=== PATIENT | female | born 1940 | race Caucasian/White ===

== ENCOUNTER 2017-01-25 11:12 | Inpatient (IN) | payer MEDICARE, BC ==
[2017-01-25 11:57] LABS: Hematocrit 44.6 % (36.0-47.0); Mean Platelet Volume 6.5 fL (7.4-10.4); Red Blood Cell (RBC) Count 4.62 mill/uL (4.20-5.40); White Blood Cell (WBC) Count 20.1 thou/uL (4.8-10.8)
[2017-01-25 12:22] LABS: ALT (SGPT) 20 U/L (8-55); AST (SGOT) 34 U/L (5-34); Alkaline Phosphatase 68 U/L (40-150); Anion Gap 20 mmol/L (10-20); BUN (Urea Nitrogen) 17 mg/dL (9.8-20.1); Bilirubin, Total 1.2 mg/dL (0.2-1.2); Calc. Creatinine Clearance 0 mL/min (70-130); Calcium 10.7 mg/dL (7.8-10.44); Carbon Dioxide 25 mmol/L (23-31); Chloride 88 mmol/L (98-107); Estimated GFR-MDRD 56; Globulin 3.2 g/dL (2.4-3.5); Lipase 25 U/L (8-78); Protein, Total 7.2 g/dL (6.0-8.3)
[2017-01-25 12:29] LABS: Neutrophil 69 % (42-75); Reactive Lymphocytes 6 % (0-10)
[2017-01-25] MEDS ORDERED: Potassium Chloride 20 MEQ in Premix Bag 1 BAG IVPB SCH (12:45)
[2017-01-25] MEDS ORDERED: Ondansetron HCl/PF 4 MG/2 ML Vial ONE (12:57)
--- NOTE | 2017-01-25 13:20 | CT ---
CT ABDOMEN AND PELVIS NONCONTRAST: Comparison: 01-11-17 Indication: Pain. FINDINGS: There is volume loss at each lung base. No evidence of hydronephrosis. There is punctate calcificati on at the lower pole left kidney. Extensive colonic diverticulosis. There is moderate retained fecal material throughout the colon. Diffuse vascular disease is present. No ascites or free air. There a re multiple compression deformities, some of which demonstrate evidence of prior vertebroplasty. The se findings are grossly stable. Prior cholecystectomy. There is mild pericardial fluid. Granulomatou s calcification identified within the visualized lower chest and abdomen. IMPRESSION: 1. Punctate nonobstructing left nephrolithiasis. 2. Evaluation is otherwise limited on basis of noncontrast technique. POS: ARNAV
[2017-01-25 13:39] LABS: Troponin I 0.135 ng/mL (< 0.028)
[2017-01-25 14:42] LABS: Lactic Acid - Sepsis 2.9 mmol/L (0.5-2.2)
[2017-01-25] MEDS ORDERED: PIPERACILLIN IVPB SCH (14:45)
[2017-01-25] MEDS ORDERED: [UNRECOGNIZED DRUG - OTHER] IVPB SCH (14:45)
[2017-01-25] MEDS ORDERED: ADMIXTURE FEE IVPB SCH (14:45)
[2017-01-25] MEDS ORDERED: TAZOBACTAM IVPB SCH (14:45)
[2017-01-25 15:15] LABS: Glucose, Urine (Dipstick) Negative (Negative)
[2017-01-25 15:16] LABS: Bilirubin Small (Negative); Blood, Urine Negative (Negative); Ketone, Urine Trace mg/dL (Negative)
[2017-01-25 15:17] LABS: Nitrite Negative (Negative); Protein, Urine (Dipstick) Trace mg/dL (Neg-Trace)
[2017-01-25 15:57] LABS: Troponin I 0.124 ng/mL (< 0.028)
[2017-01-25] MEDS ORDERED: Morphine Sulfate 2 MG/ML SYRINGE SLOW IVP PRN (16:31)
[2017-01-25] MEDS ORDERED: Ondansetron HCl/PF 4 MG/2 ML Vial IVP PRN (16:31)
[2017-01-25] MEDS ORDERED: Ondansetron ODT 4 MG TAB PO PRN (16:31)
[2017-01-25] MEDS ORDERED: metroNIDAZOLE 500 MG in Premix Bag 1 BAG IVPB SCH (18:00)
[2017-01-25] MEDS: Sodium Chloride 0.9% 1,000 ML IV SCH (18:12)
[2017-01-25] MEDS: Vancomycin HCl 1 GM in Premix Bag 1 BAG IVPB SCH (18:12)
[2017-01-25] MEDS ORDERED: diphenhydrAMINE HCl 25 MG CAP PO PRN (19:07)
[2017-01-25] MEDS ORDERED: HYDROcodone/Acetaminophen 5/325 mg Tablet PO PRN (19:07)
[2017-01-25] MEDS ORDERED: Cyclobenzaprine 10 MG TAB PO PRN (19:07)
[2017-01-25] MEDS ORDERED: Cetirizine HCl 10 MG TAB PO PRN (19:07)
[2017-01-25] MEDS ORDERED: Fluticasone Propionate Nasal Spray 16 gm Bottle NASAL PRN (19:07)
--- NOTE | 2017-01-25 19:14 | RAD ---
CHEST TWO VIEWS: 01/25/17 HISTORY: Abdominal pain. Dyspnea. COMPARISON: 01/12/17 FINDINGS: The cardiac silhouette and pulmonary vasculature are unremarkable. Lungs remain hyperinflated. Media stinum is midline with aortic calcification. There is no confluent air space consolidation or eviden ce of free subdiaphragmatic gas. Prior vertebroplasty seen is similar in appearance to the previous exam. IMPRESSION: Chronic type findings are stable. No active cardiopulmonary abnormalities are demonstrated. POS: PROSPERH
[2017-01-25 20:06] LABS: Troponin I 0.107 ng/mL (< 0.028)
[2017-01-25] MEDS: metroNIDAZOLE 500 MG in Premix Bag 1 BAG IVPB SCH (20:56)
[2017-01-25] MEDS ORDERED: Vancomycin HCl 1 GM in Premix Bag 1 BAG IVPB SCH (21:00)
[2017-01-25] MEDS: Piperacillin/Tazobactam 3.375 GM in Sodium Chloride 0.9% 100 ML IVPB SCH (22:17)
[2017-01-26] MEDS: metroNIDAZOLE 500 MG in Premix Bag 1 BAG IVPB SCH ×4 (02:27→22:37)
[2017-01-26] MEDS: Sodium Chloride 0.9% 1,000 ML IV SCH ×3 (02:27→23:15)
[2017-01-26] MEDS: Piperacillin/Tazobactam 3.375 GM in Sodium Chloride 0.9% 100 ML IVPB SCH ×4 (03:28→23:15)
--- NOTE | 2017-01-26 03:36 | HP-2 ---
CODE STATUS: FULL. PRIMARY CARE PHYSICIAN: Dr. Tim. ATTENDING PHYSICIAN: Luis Belle MD RESIDENT: Becka Joyner DO HISTORIAN: Patient. SPECIALIST: Dr. Tello. CHIEF COMPLAINT: Abdominal pain. HISTORY OF PRESENT ILLNESS: This is a 76-year-old female. She was recently discharged on 01/12/2017 with concern for diverticulitis and NSTEMI presenting with abdominal pain that started about 3 days ago. The abdominal pain radiated across her epigastric area across her lower ribs to her back,to her ribs. It did not feel to her like her typical diverticulitis, but felt like pancreatitis which she has had 3 times in the past. After she woke up this morning, the pain has been constant since at that time until she came to the emergency room and received pain medications, also it was associated with nausea and weakness as well as a very poor appetite and vomiting , her vomitus that was nonbloody and just food. She states that she took over- the-counter medication. She was not sure that everything she took and states that the Pepto-Bismol seemed to help yesterday; however, did not help today. She was seen in Dr. Tello' office this morning and was told to come to the hospital for further evaluation during that time. She does also admit to decreased urine output as well as sweating and diaphoresis when she does get up and walk around. Denies any chest pain, shortness of breath or any fevers. In the emergency room, she was given potassium 40 mEq IV piggyback, one liter of normal saline, morphine 4 mg IV push, Zofran 4 mg IV push. She does admit to a dry cough. PAST MEDICAL HISTORY: 1. Paroxysmal atrial fibrillation. 2. Hypertension. 3. Osteoarthritis. 4. Hypothyroidism. 5. Hyperlipidemia. 6. Sjogren's syndrome. 7. Diastolic congestive heart failure 60% - 65% with the last EF was done on . 8. Non-ST elevation myocardial infarction. 9. TIA. PAST SURGICAL HISTORY: 1. Surgery of the right oophorectomy. 2. Ablation x2 for atrial fibrillation by Dr. Sawyer. 3. Appendectomy. 4. Cholecystectomy. 5. Thyroidectomy. 6. Surgery around T11 and L3-L4. 7. Filter to the heart, which is the Watchman filter. ALLERGIES: AMLODIPINE. MEDICATIONS: 1. Aspirin 81 mg every day. 2. Folic acid 0.6 mg every day. 3. Losartan 50 mg daily. 4. Advair 250/50 daily. 5. Propranolol 60 mg at bedtime. 6. Clarks Thyroid 60 mg every day. 7. Methylprednisolone 40 mg daily. 8. Albuterol q.4 hours. 9. Zyrtec 10 mg daily. 10. Clonidine 0.3 mg t.i.d. 11. Flonase. 12. Furosemide 40 mg p.o. daily p.r.n. lower extremity edema. 13. Ranitidine 150 mg daily p.r.n. 14. Rosuvastatin 10 mg p.o. at bedtime. 15. Hydralazine 50 mg t.i.d. FAMILY HISTORY: Son has hyperlipidemia and hypertension. SOCIAL HISTORY: She denies any smoking, alcohol or drug use. She is currently retired and has a son as well. REVIEW OF SYSTEMS: Negative except what was mentioned above in the HPI. All 10 systems reviewed and negative except in the HPI. PHYSICAL EXAMINATION: VITAL SIGNS: Blood pressure 120/55, pulse 79, respirations 18, T-max 100.1, pulse ox 96% on room air. Current weight is 68 kilograms. GENERAL: Alert, oriented x4, no acute distress. She is well-developed, well- nourished, and appropriately interactive. EYES: Pupils equal and reactive to light. Extraocular muscles intact. Conjunctivae within normal limits. ENT: Tympanic membranes pearly gomes without erythema or bulging. Nasal mucosa within normal limits. Oropharynx within normal limits. NECK: Supple, no lymphadenopathy, no thyromegaly. CARDIOVASCULAR: Regular rate and rhythm, no murmurs. Radial pulses +2 symmetric bilaterally, pedal pulses +2 symmetric bilaterally. RESPIRATIONS: Within normal limits. Clear to auscultation bilaterally. No retractions. SKIN: Warm and dry, no cyanosis shows multiple bruising over bilateral arms. ABDOMEN: Soft, mildly tenderness to palpation, generalized; however, no rebound , no guarding, no masses or distention. No CVA tenderness. EXTREMITIES: No edema. MUSCULOSKELETAL: She is very thin. She does have tenderness to palpation over the spinous processes where she previously had surgery in the thoracic and lumbar region. NEUROLOGIC: No focal deficits. GCS of 15. PSYCHIATRIC: Appropriate. LABORATORY DATA: CBC: WBC of 20.1, hemoglobin 14.7, hematocrit of 44.6, platelets 408,000. Sodium 130, potassium 2.6, chloride 88, bicarbonate 25, BUN of 17, creatinine 0.97, glucose 237, calcium 10.7, total bilirubin 1.2, albumin 4.0, total protein 7.2, AST 34, ALT 20, alkaline phosphatase 68, troponin I 0.135. Lipase 25, lactic acid 2.9. EKG does show a prolonged QT, nonspecific ST changes. Imaging of the abdomen and pelvis showed punctate nonobstructing nephrolithiasis. ASSESSMENT AND PLAN: This is a 76-year-old female with the medical history of diverticulitis that was recently treated and Sjogren's disease on chronic steroids, presenting with: 1. Fever of unknown source in immunocompromised individual. We will start broad spectrum antibiotics vancomycin, pharmacy to dose and Zosyn, metronidazole until blood cultures results negative. We have discussed this case with Dr. Tello and he will be consulted in the morning. UA culture and blood cultures are pending as well as we will resume fluids and continue Zofran p.r.n. nausea and morphine p.r.n. pain. We will allow her to eat clear liquid diet and admit her to inpatient telemetry there for other workup at this time. 2. Hx of Diverticulosis w/ concern for Diverticulitis. Continue antibiotics. Consult Dr. Tello. We will add C. diff as well to rule out if this is the cause. CT scan abdomen was without contrast which showed diverticulosis. Likely still has diverticulitis, as patient has lower abdominal pain and and initial leukocytosis 20. 3. Abdominal pain. CT scan as above. Will r/o cardiac cause. Continue serial cardiac enzymes. Abdominal pain is very nonspecific. No acute EKG findings. It does not appear that the punctate nonobstructing left nephrolithiasis are consistent with her abdominal pain. We will order the UA and follow up the results. Per Dr. Tello, the patient does have a possible history of IBS, which may be contributing to her abdominal pain. 4. Chronic Hypertension. Continue home blood pressure medications. 5. Chronic Hypothyroidism. Continue home medications and add a TSH. 6. Hyperlipidemia. Continue home medications. 7. Paroxysmal atrial fibrillation. Continue home medications. 8. Diastolic congestive heart failure (Last EF 60-65%). Continue home medications. We will add a chest x-ray. 9. Lactic acidosis. We will continue fluids and repeat lactic acid at 2100. 10. Low back pain, which is chronic. She has degenerative joint disease and osteoarthritis. We will continue home medications. 11. Hyponatremia. We will continue fluids, likely secondary to dehydration and monitor her results. 12. Hypokalemia has been replaced in emergency room. Likely secondary to vomiting, poor PO intake. We will recheck and also check her magnesium. 13. Indeterminate troponins, we will continue cardiac enzymes, monitor her in telemetry. She did have an EKG which does not show any ST elevation at this time. There are indeterminate troponin was not as high as it was on previous admission, which is likely residual. 14. Acute Kidney Injury. Will continue fluids. Likely all pre-reanl 14. DVT prophylaxis: Loveonx. 15. GI Prophylaxis. Pepcid. This history and physical exam, as well as management, was discussed with Dr. Belle, who agrees with the above assessment and plan. pt seen and evaluated in ED with housestaff. leukocytosis and diaphoresis most worrisome for recurrent infection doubt cardiac issue at this time. we will start empiric abx and do appropriate imaging. Dr Ramesh will follow as well. ANISA
[2017-01-26 06:39] LABS: #Basophils 0.1 thou/uL (0.0-0.2); #Eosinphils 0.1 thou/uL (0.0-0.7); #Lymphocytes 3.5 thou/uL (1.20-3.40); #Neutrophils 9.5 thou/uL (1.40-6.50); %Basophils 0.7 % (0.0-1.0); %Eosinophils 0.8 % (0.0-10.0); %Lymphocytes 24.4 % (21.0-51.0); %Monocytes 7.4 % (0.0-10.0); Hematocrit 34.8 % (36.0-47.0); White Blood Cell (WBC) Count 14.2 thou/uL (4.8-10.8)
[2017-01-26 06:46] LABS: Anion Gap 15 mmol/L (10-20); BUN (Urea Nitrogen) 11 mg/dL (9.8-20.1); Calc. Creatinine Clearance 66 mL/min (70-130); Calcium 8.7 mg/dL (7.8-10.44); Carbon Dioxide 22 mmol/L (23-31); Chloride 99 mmol/L (98-107); Estimated GFR-MDRD 78
[2017-01-26] MEDS ORDERED: Potassium Chloride 20 MEQ TAB PO SCH (07:00)
[2017-01-26] MEDS ORDERED: Potassium Chloride 40 MEQ in Premix Bag 1 BAG IVPB SCH (08:00)
[2017-01-26] MEDS ORDERED: SODIUM CHLORIDE IVPB SCH ×2 (08:00→16:00)
[2017-01-26] MEDS ORDERED: ADMIXTURE FEE IVPB SCH ×2 (08:00→16:00)
[2017-01-26] MEDS ORDERED: MAGNESIUM SULFATE IVPB SCH ×2 (08:00→16:00)
[2017-01-26] MEDS ORDERED: Potassium Chloride 40 MEQ, IV Admixture Fee 1 EACH in Sodium Chloride 0.9% 250 ML 250 ML IVPB SCH (08:15)
[2017-01-26] MEDS: Enoxaparin Sodium 40 MG/0.4 ML SYRINGE SC SCH (09:30)
[2017-01-26] MEDS: Prenatal Vitamin 1 TAB PO SCH (09:30)
--- NOTE | 2017-01-26 15:18 | PDOC.FM ---
- Subjective Subjective: 76 yo F hospital day 2 admitted for nausea, vommiting abdominal pain. She reports she is feeling better today and felt almost immediately better after receiving zofran in the ED. She was able to tolerate solid foods this morning, but states she felt a little "queezy" after eating. She denies any abdominal pain, diarrhea, constipation and vomiting. Denies fever and chills but states shes always cold. Denies CP and SOB. - Objective Vital Signs & Weight: Vital Signs (12 hours) Temp Pulse Pulse Resp BP BP BP 01/26/17 12:00 98.3 F 80 18 143/65 H 01/26/17 11:07 81 151/66 H 184/76 H 01/26/17 08:00 98.2 F 71 18 141/65 H 01/26/17 04:20 01/26/17 04:00 98.2 F 80 20 143/67 H Pulse Ox 01/26/17 12:00 01/26/17 11:07 01/26/17 08:00 95 01/26/17 04:20 94 L 01/26/17 04:00 97 Weight Admit Weight 61.689 kg Weight 64.093 kg I&O: 01/25/17 01/26/17 01/27/17 06:59 06:59 06:59 Intake Total 1920 Output Total 1000 Balance 920 Result Diagrams: 01/26/17 05:41 01/26/17 05:41 Phys Exam - Physical Examination Constitutional: NAD HEENT: PERRLA, moist MMs, sclera anicteric Neck: no JVD Respiratory: no wheezing, no rales, no rhonchi, clear to auscultation bilateral Cardiovascular: RRR, no significant murmur, no rub Gastrointestinal: soft, no distention, positive bowel sounds mildly ttp over LLQ Musculoskeletal: no edema, pulses present Neurological: non-focal, moves all 4 limbs Skin: no rash Dx/Plan (1) Afib Code(s): I48.91 - UNSPECIFIED ATRIAL FIBRILLATION Status: Acute Qualifiers: Atrial fibrillation type: paroxysmal Qualified Code(s): I48.0 - Paroxysmal atrial fibrillation (2) Diverticulitis large intestine w/o perforation or abscess w/o bleeding Code(s): K57.32 - DVTRCLI OF LG INT W/O PERFORATION OR ABSCESS W/O BLEEDING Status: Acute (3) Hyperlipidemia Code(s): E78.5 - HYPERLIPIDEMIA, UNSPECIFIED Status: Acute (4) Hypertension Code(s): I10 - ESSENTIAL (PRIMARY) HYPERTENSION Status: Acute Qualifiers: Hypertension type: essential hypertension Qualified Code(s): I10 - Essential (primary) hypertension (5) Hypokalemia Code(s): E87.6 - HYPOKALEMIA Status: Resolved (6) Hypomagnesemia Code(s): E83.42 - HYPOMAGNESEMIA Status: Resolved - Plan Plan: continue home medications for chronic medical conditions white count trending down, will continue broad spectrum Abx for suspected diverticulitis Non contrast CT abdomen negative, but recent h/o diverticulitis of sigmoid given this with physical exam findings will continue to treat for diverticulitis consult GI, appreciate recs replace K and Mag recheck BMP, pending
--- NOTE | 2017-01-26 15:22 | ADD-PRG ---
DATE OF SERVICE: 01/26/2017 ADDENDUM Please add it as an addendum to the note of Dr. Kj Harris. Ms. Carrera is a pleasant 76-year-ol d white female patient admitted from Dr. Tello' office for increased abdominal pain. On admission, she was noted to have a white count of 20,000 with hemoglobin of 14.7. This morning, her white cou nt has dropped to 14,200, hemoglobin 12. She is awake, alert, and in no distress. She even states that she is quite hungry. She denies any significant abdominal pain. Upon palpating the abdomen, i t is completely benign, soft, flat, although she does have left lower quadrant tenderness to deep pa lpation without rebound or rigidity. CT of the abdomen with contrast done on the previous admission 1 week ago did show acute diverticuli tis, now suspect that she is having lingering effects from this. She has been started on broad spec trum antibiotics, fluids and has stated it is ready looking and feeling much better. For now, given her advanced age, slow recovery, and use of steroids, we probably need to keep her on IV antibiotic s for several days and then transitioned her slowly to p.o. while increasing her and advancing her d iet.
[2017-01-26 15:43] LABS: Anion Gap 17 mmol/L (10-20); BUN (Urea Nitrogen) 11 mg/dL (9.8-20.1); Calc. Creatinine Clearance 61 mL/min (70-130); Calcium 9.4 mg/dL (7.8-10.44); Carbon Dioxide 22 mmol/L (23-31); Chloride 101 mmol/L (98-107); Estimated GFR-MDRD 70
[2017-01-26] MEDS: HYDROcodone/Acetaminophen 5/325 mg Tablet PO PRN (17:36)
[2017-01-26] MEDS ORDERED: Famotidine 20 MG TAB PO PRN (18:56)
[2017-01-26] MEDS ORDERED: Furosemide 40 MG TAB PO PRN (18:56)
[2017-01-26] MEDS ORDERED: Folic Acid 1 MG TAB PO PRN (18:56)
[2017-01-26] MEDS ORDERED: PROVENTIL INHALER 6.7 G (200 INHALATIONS) INH PRN (18:56)
[2017-01-26] MEDS ORDERED: SUMAtriptan Succinate 50 MG TAB PO PRN (19:20)
--- NOTE | 2017-01-26 21:49 | RAD ---
CHEST ONE VIEW: 01/26/17 HISTORY: Central line placement. COMPARISON: 01/25/17. FINDINGS: Cardiac silhouette and pulmonary vasculature are unremarkable. Mediastinum is midline. Tip of a righ t internal jugular central venous catheter projects over the superior vena cava. There is no evidenc e of pneumothorax. IMPRESSION: Right internal jugular central venous catheter is in good radiographic position. POS: [facility]
[2017-01-26] MEDS: Lorazepam 0.5 MG TAB PO PRN (21:56)
[2017-01-26] MEDS: Vancomycin HCl 1 GM in Premix Bag 1 BAG IVPB SCH (21:57)
[2017-01-26] MEDS: PROPRANOLOL HCL 60 MG PO SCH (23:15)
[2017-01-27] MEDS: metroNIDAZOLE 500 MG in Premix Bag 1 BAG IVPB SCH ×4 (01:57→22:48)
[2017-01-27] MEDS: Sodium Chloride 0.9% 1,000 ML IV SCH (03:40)
[2017-01-27] MEDS: Piperacillin/Tazobactam 3.375 GM in Sodium Chloride 0.9% 100 ML IVPB SCH ×5 (03:40→22:48)
[2017-01-27] MEDS: PROPRANOLOL HCL 60 MG PO SCH ×3 (05:40→21:18)
--- NOTE | 2017-01-27 06:09 | OP ---
DATE OF PROCEDURE: 01/26/2017 SURGEON: Dr. Torin Manning PROCTORING PHYSICIAN: Dr. Romano PROCEDURE: Central venous catheter placement. INDICATION: Need for multiple IV infusions, inability to maintain peripheral venous access, need for frequent blood draws. INDICATIONS: This is a 76-year-old female who was admitted with diverticulitis. She has had, it looks like several IVs and they are unable to obtain another one despite the need for recurrent blood draws, IV antibiotics, and because of this, we discussed the risks and the indications, alternatives, benefits of a central line including pain, bleeding, infection, damage to surrounding structures, need for additional procedures including a chest tube placement and she voiced consent and desired to proceed. PROCEDURE IN DETAIL: The patient was prepped and draped in the dorsal supine position in Trendelenburg. A full body drape, sterile gowns, mask, gloves and a cap were used. Under ultrasound guidance, the right internal jugular vein was identified and accessed and a central venous catheter placed using standard Seldinger technique. Placement was verified with ultrasound and chest x-ray afterwards with no immediate complication. The patient tolerated the procedure well. Anesthesia was lidocaine 5 mL with epinephrine 1%. MTDD
[2017-01-27 06:28] LABS: #Basophils 0.1 thou/uL (0.0-0.2); #Eosinphils 0.2 thou/uL (0.0-0.7); #Monocytes 0.8 thou/uL (0.11-0.59); #Neutrophils 4.2 thou/uL (1.40-6.50); %Basophils 0.9 % (0.0-1.0); %Eosinophils 2.7 % (0.0-10.0); %Lymphocytes 36.1 % (21.0-51.0); %Monocytes 9.5 % (0.0-10.0); Hematocrit 31.8 % (36.0-47.0); Red Blood Cell (RBC) Count 3.29 mill/uL (4.20-5.40); White Blood Cell (WBC) Count 8.3 thou/uL (4.8-10.8)
--- NOTE | 2017-01-27 06:36 | CON ---
DATE OF CONSULTATION: 01/26/2017 REASON FOR CONSULTATION: Questionable diverticulitis. HISTORY OF PRESENT ILLNESS: Ms. Carrera is a pleasant 76-year-old lady I have seen in the past for mu ltiple ailments, she definitely has a component of functional bowel disorder, she had some problems with reflux in the past. Last upper and lower endoscopy was in 2012, at which time she had some herminia yps and otherwise normal esophagogastroduodenoscopy. She apparently was in the hospital in 12/28/19 17 she was in and was diagnosed with noncomplicated diverticulitis based on some thickening in the s igmoid colon and was treated empirically with antibiotics. She had electrolyte replacement as she h ad quite a bit of electrolyte abnormality at that visit. She was discharged, then she represented o n the with weakness, nausea, and vomiting, again had to have electrolyte replacement, but no si gns of diverticulosis was found on CAT scan at that time. She was seeing a new primary care physici Dr. Glenroy bolivar of Internal Medicine and actually she had an appointment with me earlier this week. She called and said she was too ill to come, she was having nausea and vomiting and wanted to admit parveen to the hospital. I recommended she go to the emergency room. Ultimately, she came to the offic e the next day with complaints of epigastric pain, nausea, and poor intake as well as sweating and d iaphoresis. Her pain was mainly in the epigastric region. She thought she in fact probably had yost creatitis. She denied any pain in the lower abdominal region where she had diverticulitis previousl y. Other significant issues are a 50 pound weight loss since 05/2015 when we had last seen her in our o ffice. Here in the emergency room, she was found to have an elevated white count of 20,000, hemoglo bin 14, potassium of 2.6, sodium 133. Liver function tests were normal. Lipase was 25. She had a CAT scan of abdomen and pelvis which showed no signs of diverticulitis. She has been started empiri amira on broad spectrum antibiotics. PAST MEDICAL HISTORY: Paroxysmal atrial fibrillation, hypertension, osteoarthritis, hypothyroidism, Sjogren's syndrome, diastolic heart failure, non-ST elevation NH in the past, transient ischemic at tacks. She is on chronic steroids for the Sjogren's. PAST SURGICAL HISTORY: Surgery right oophorectomy, ablation of the atrial fibrillation x2, appendec kwesi, cholecystectomy, thyroidectomy, surgery for T11, L3, L4, Watchman filter. She has also had up per and lower endoscopies in 2013 as noted above. HOME MEDICATIONS: Aspirin, folic acid, losartan, Advair, propranolol, [place] Thyroid, methylprednis one 40 mg daily, albuterol, Zyrtec, clonidine, Flonase, furosemide, ranitidine, Rosuvastatin, hydral azine. FAMILY HISTORY: Hyperlipidemia, hypertension. SOCIAL HISTORY: She does not smoke, drink or use drugs. PRESENT MEDICATIONS: Proventil, Ecotrin, BuSpar, Zyrtec, Flexeril, Bentyl, Benadryl, Lovenox, Flona se, furosemide 40 mg p.r.n., hydrocodone p.r.n., magnesium sulfate IV, metronidazole 500 mg IV q.8 h ., Zosyn, propranolol, p.r.n. morphine, vancomycin, folic acid, ranitidine, clonidine, raul min, Synthroid. PHYSICAL EXAMINATION: GENERAL: The patient is resting in bed. She looks much better than she did in my office. VITAL SIGNS: Temperature 98, pulse 78, blood pressure 140/70. LUNGS: Clear. CARDIOVASCULAR: Heart regular, without clicks or murmurs. ABDOMEN: Soft, very mild tenderness in lower abdomen. No rebound, no guarding. There is no epigas tric tenderness. LABORATORY AND X-RAY FINDINGS: White count of 14.2, hemoglobin 12, platelet count 313. Sodium 136, potassium 3.8, BUN and creatinine are 11 and 0.8. Urinalysis was negative. Urine culture negative , 24 hour blood cultures negative to-date. ASSESSMENT: 1. Acute illness of unclear etiology. She has lost significant weight and had nausea and vomiting. It would be reasonable to consider an EGD tomorrow. 2. Chronic steroid use. The patient is probably adrenally suppressed, she is not on steroids now, she needs to be on her stress dose steroids. 3. No signs of diverticulitis at this point in time. 4. She has had 2-3 admissions now with nausea and vomiting, and electrolyte disturbances. One wond ers if this is related in some ways to some adrenal insufficiency. It may be reasonable to test her for adrenal insufficiency with Cortrosyn stimulation test. We will defer to Family Medicine. If a ll cultures are negative and she continues to have some improvement, we will plan on EGD probably i n the next 24-48 hours.
[2017-01-27 06:49] LABS: Anion Gap 10 mmol/L (10-20); BUN (Urea Nitrogen) 8 mg/dL (9.8-20.1); Calc. Creatinine Clearance 78 mL/min (70-130); Calcium 8.3 mg/dL (7.8-10.44); Carbon Dioxide 25 mmol/L (23-31); Chloride 102 mmol/L (98-107); Estimated GFR-MDRD Greater than 90; Magnesium 1.7 mg/dL (1.6-2.6)
[2017-01-27] MEDS: Aspirin 81 mg Enteric Coated Tablet PO SCH (08:15)
[2017-01-27] MEDS: busPIRone HCl 5 MG TAB PO SCH (08:15)
[2017-01-27] MEDS ORDERED: Potassium Chloride 40 MEQ in Sodium Chloride 0.9% 250 ML 250 ML IVPB SCH (08:15)
[2017-01-27] MEDS: Prenatal Vitamin 1 TAB PO SCH (08:16)
[2017-01-27] MEDS: methylPREDNISolone 4 mg Tablet PO SCH (08:16)
[2017-01-27] MEDS: Enoxaparin Sodium 40 MG/0.4 ML SYRINGE SC SCH ×2 (08:17→08:50)
--- NOTE | 2017-01-27 08:57 | PDOC.FM ---
- Subjective Subjective: 76 yo F hospital day 3. Per nursing staff, IV access was lost and pt was difficult to regain IV access. Decision was made to insert IJ central line. She states she feels the same as yesterday, but this is still improved from her original admission date. Denies fever chills. Denies Diarrhea, constipation, nausea vomiting. She is scheduled to have an EGD performed by Dr Tello later today. - Objective Vital Signs & Weight: Vital Signs (12 hours) Temp Pulse Resp BP BP Pulse Ox 01/27/17 08:16 67 157/67 H 01/27/17 08:15 157/67 H 01/27/17 08:00 98.6 F 67 18 157/67 H 94 L 01/27/17 04:00 97.6 F 72 18 150/66 H 95 Weight Admit Weight 61.689 kg Weight 64.637 kg I&O: 01/26/17 01/27/17 01/28/17 06:59 06:59 06:59 Intake Total 1920 2510 Output Total 1000 1050 Balance 920 1460 Result Diagrams: 01/27/17 05:57 01/27/17 05:57 Phys Exam - Physical Examination Constitutional: NAD HEENT: PERRLA, moist MMs rt IJ line in place Respiratory: no wheezing, no rales, no rhonchi, clear to auscultation bilateral Cardiovascular: RRR, no significant murmur, no rub Gastrointestinal: soft, no distention, positive bowel sounds mildly ttp diffuse worse LLQ, w/o rebound or rigidity. guarding Musculoskeletal: pulses present Neurological: non-focal Deviation from normal: senile purpura Dx/Plan (1) Afib Code(s): I48.91 - UNSPECIFIED ATRIAL FIBRILLATION Status: Acute Qualifiers: Atrial fibrillation type: paroxysmal Qualified Code(s): I48.0 - Paroxysmal atrial fibrillation (2) Diverticulitis large intestine w/o perforation or abscess w/o bleeding Code(s): K57.32 - DVTRCLI OF LG INT W/O PERFORATION OR ABSCESS W/O BLEEDING Status: Acute (3) Hyperlipidemia Code(s): E78.5 - HYPERLIPIDEMIA, UNSPECIFIED Status: Acute (4) Hypertension Code(s): I10 - ESSENTIAL (PRIMARY) HYPERTENSION Status: Acute Qualifiers: Hypertension type: essential hypertension Qualified Code(s): I10 - Essential (primary) hypertension (5) Hypokalemia Code(s): E87.6 - HYPOKALEMIA Status: Resolved (6) Hypomagnesemia Code(s): E83.42 - HYPOMAGNESEMIA Status: Resolved - Plan Plan: white count trended down continue abx for now persistently decreased serum potassium will check 24 urine potassium spot urine potassium and creatinine consider dagmar levels replace potassium as needed replace magnesium dc fluids hold lasix resume home meds for chronic conditions GI consulted, apppreciate recs EGD scheduled for today
[2017-01-27 11:15] LABS: Potassium, Urine 24.7 mmol/L
[2017-01-27] MEDS ORDERED: Potassium Chloride 40 MEQ in Sodium Chloride 0.9% 500 ML IVPB SCH (11:45)
[2017-01-27] MEDS ORDERED: Potassium Chloride 40 MEQ in Premix Bag 1 BAG IVPB SCH ×2 (13:20→17:30)
--- NOTE | 2017-01-27 14:09 | ADD-PRG ---
DATE OF SERVICE: 01/27/2017 This is an addendum to the note of Dr. Kj Harris. Ms. Carrera continues to feel improved, although still was some abdominal discomfort and nausea. She was seen in consultation by Dr. Tello and we appreciate his input. She is scheduled for an EGD lat er this morning given her persistent nausea. She continues on broad-spectrum antibiotics with a ten tative and likely diagnosis of acute diverticulitis. In the event, clinically she is improving, sue marion I would recommend prolonging her therapy for several days of intravenous antibiotics given luke t this a recurrent episode beginning probably 1-2 weeks ago.
[2017-01-27 16:50] LABS: Vancomycin, Trough 3.3 ug/mL
[2017-01-27] MEDS: Vancomycin HCl 1 GM in Premix Bag 1 BAG IVPB SCH (19:08)
[2017-01-27] MEDS ORDERED: Lidocaine 1% PF 5 ML VIAL ONE (19:17)
[2017-01-27] MEDS ORDERED: Ondansetron HCl/PF 4 MG/2 ML Vial IVP PRN (19:23)
[2017-01-27] MEDS ORDERED: Vancomycin HCl 1 GM in Premix Bag 1 BAG IVPB SCH (20:00)
[2017-01-27] MEDS: HYDROcodone/Acetaminophen 5/325 mg Tablet PO PRN (21:18)
[2017-01-28] MEDS: metroNIDAZOLE 500 MG in Premix Bag 1 BAG IVPB SCH ×5 (00:23→22:44)
[2017-01-28] MEDS: Piperacillin/Tazobactam 3.375 GM in Sodium Chloride 0.9% 100 ML IVPB SCH ×4 (04:05→22:11)
--- NOTE | 2017-01-28 05:01 | PDOC.FM ---
- Subjective Subjective: Pt had no acute events overnight. She continues to improve clinically and states she is feeling better today. She reports some nausea, but no vomiting. Denies cp, sob, diarrhea and constipation. She has some mild abdominal discomfort, but felt some relief with bowel movement. Her vitals remain stable and she continues to improve clinically. - Objective Vital Signs & Weight: Vital Signs (12 hours) Temp Pulse Resp BP Pulse Ox 01/27/17 19:45 97.6 F 71 16 136/66 98 Weight Admit Weight 61.689 kg Weight 64.637 kg I&O: 01/26/17 01/27/17 01/28/17 06:59 06:59 06:59 Intake Total 1920 2510 Output Total 1000 1050 Balance 920 1460 Result Diagrams: 01/28/17 05:45 01/28/17 05:31 <Kj Harris - Last Filed: 01/28/17 18:49> - Objective Vital Signs & Weight: Vital Signs (12 hours) Temp Pulse Pulse Pulse Resp BP BP 01/29/17 21:10 75 16 01/29/17 20:58 71 164/73 H 01/29/17 16:56 74 140/65 01/29/17 16:00 98.3 F 74 24 H 01/29/17 11:45 98 F 65 20 01/29/17 11:28 66 68 153/67 H BP BP Pulse Ox 01/29/17 21:10 99 01/29/17 20:58 01/29/17 16:56 01/29/17 16:00 140/65 98 01/29/17 11:45 141/67 H 01/29/17 11:28 141/62 H Weight Admit Weight 136 lb Weight 144 lb 3.2 oz I&O: 01/28/17 01/29/17 01/30/17 06:59 06:59 06:59 Intake Total 940 1775 850 Output Total 350 1200 1000 Balance 590 575 -150 Result Diagrams: 01/29/17 04:04 01/29/17 13:06 <Luis Belle - Last Filed: 01/29/17 21:52> Phys Exam - Physical Examination Constitutional: NAD HEENT: PERRLA, moist MMs Neck: no nodes Respiratory: no wheezing, no rales, no rhonchi, clear to auscultation bilateral Cardiovascular: RRR, no significant murmur, no rub Gastrointestinal: soft, no distention, positive bowel sounds ttp llq, w/o rebound, mild guarding Musculoskeletal: no edema Neurological: non-focal Deviation from normal: senile purpura <Kj Harris - Last Filed: 01/28/17 18:49> Dx/Plan (1) Afib Code(s): I48.91 - UNSPECIFIED ATRIAL FIBRILLATION Status: Acute Qualifiers: Atrial fibrillation type: paroxysmal Qualified Code(s): I48.0 - Paroxysmal atrial fibrillation (2) Diverticulitis large intestine w/o perforation or abscess w/o bleeding Code(s): K57.32 - DVTRCLI OF LG INT W/O PERFORATION OR ABSCESS W/O BLEEDING Status: Acute (3) Hyperlipidemia Code(s): E78.5 - HYPERLIPIDEMIA, UNSPECIFIED Status: Acute (4) Hypertension Code(s): I10 - ESSENTIAL (PRIMARY) HYPERTENSION Status: Acute Qualifiers: Hypertension type: essential hypertension Qualified Code(s): I10 - Essential (primary) hypertension (5) Hypokalemia Code(s): E87.6 - HYPOKALEMIA Status: Resolved (6) Hypomagnesemia Code(s): E83.42 - HYPOMAGNESEMIA Status: Resolved - Plan Plan: 24 hour urine potassium pending and awaiting results unclear if renal or GI loss pts symptoms consistent with hypokalemia vs infectious process w/ h/o of htn and severe hypokalemia w/ use of diuretics we will work pt up for hyperaldosteronism 24 Urine aldosterone pending we will continue IV abx for now given pts leukocytosis on initial presentation and previous h/o of diverticulitis pt has been afebrile since admission and white count has trended down we will continue home steroid dose since she is 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 dependent for hypokalemia and hypomagnesmia replace potassium and magnesium as appropriate recheck in AM pt received 120mEqs K+ yesterday, morning BMP and Mag clinically pt continues to improve, vitals are stable and white count continues to trend down we will DC vancomycin and continue to treat with zosyn and flagyl in hopes of transitioning to po medications soon <Kj Harris - Last Filed: 01/28/17 18:49> Attending Addendum - Attending Addendum I personally evaluated the patient and discussed the management with [Kimberly ] I agree with the History, Examination, Assessment and Plan documented above with any addition or exceptions noted below. pt stable and getting better. persistent issues with low k <Luis Belle - Last Filed: 01/29/17 21:52>
[2017-01-28 05:55] VITALS: BMI 29.1
[2017-01-28 06:06] LABS: #Basophils 0.1 thou/uL (0.0-0.2); #Eosinphils 0.2 thou/uL (0.0-0.7); #Lymphocytes 2.1 thou/uL (1.20-3.40); #Monocytes 0.5 thou/uL (0.11-0.59); #Neutrophils 2.8 thou/uL (1.40-6.50); %Basophils 1.2 % (0.0-1.0); %Lymphocytes 37.4 % (21.0-51.0); %Monocytes 8.8 % (0.0-10.0); Hematocrit 28.4 % (36.0-47.0); Mean Platelet Volume 7.1 fL (7.4-10.4); Red Blood Cell (RBC) Count 2.88 mill/uL (4.20-5.40); White Blood Cell (WBC) Count 5.7 thou/uL (4.8-10.8)
[2017-01-28 06:37] LABS: Anion Gap 11 mmol/L (10-20); BUN (Urea Nitrogen) 6 mg/dL (9.8-20.1); Calc. Creatinine Clearance 87 mL/min (70-130); Calcium 7.9 mg/dL (7.8-10.44); Carbon Dioxide 24 mmol/L (23-31); Chloride 103 mmol/L (98-107); Estimated GFR-MDRD Greater than 90; Magnesium 1.3 mg/dL (1.6-2.6)
--- NOTE | 2017-01-28 06:50 | OP ---
PREOPERATIVE DIAGNOSES: 1. Epigastric pain. 2. Admitted with fever, leukocytosis of unclear etiology. POSTOPERATIVE DIAGNOSES: 1. Mild coffee ground like heme staining of the mucosa, but no overt ulcerations or erosions. 2. Mild atrophic gastritis. Previous biopsies in the past have been negative. This was not rebiop sied today. 3. Hiatal hernia. 4. Normal duodenum. RECOMMENDATIONS: Advance diet as tolerated. ANESTHESIA: TIVA. PROCEDURE IN DETAIL: After the patient was informed of the risks, benefits, possible complications of endoscopy including perforation, bleeding, reactions to medication and aspiration, informed conse nt was obtained. The patient was brought to the endoscopy suite where she was sedated in gradual fa shion. Once she was comfortable, a bite block was placed in incisural orifice. The endoscope was a dvanced through the esophagus, stomach and second and third portion of duodenum and slowly removed. There was a good visualization of mucosa. There were no masses, lesions, or arteriovenous malforma tions identified. There is a hiatal hernia. The esophagus was otherwise normal. There was no evid ence of esophagitis. The duodenum was normal in the bulb, second and third portions. The stomach w as notable for mild atrophic gastritis. Retroflexed views were normal. The scope was removed. The patient tolerated the procedure and no complications. RECOMMENDATIONS: With hypokalemia and hyponatremia, history of chronic steroid use, will check maxwell isol stimulation.
[2017-01-28] MEDS ORDERED: Potassium Chloride 40 MEQ in Sodium Chloride 0.9% 500 ML IVPB SCH ×2 (07:00→07:15)
[2017-01-28] MEDS ORDERED: Magnesium Sulfate 3 GM in Sodium Chloride 0.9% 100 ML IVPB SCH (07:00)
[2017-01-28] MEDS: Enoxaparin Sodium 40 MG/0.4 ML SYRINGE SC SCH (08:35)
[2017-01-28] MEDS: Aspirin 81 mg Enteric Coated Tablet PO SCH (08:36)
[2017-01-28] MEDS: methylPREDNISolone 4 mg Tablet PO SCH (08:36)
[2017-01-28] MEDS: Prenatal Vitamin 1 TAB PO SCH (08:36)
[2017-01-28] MEDS: PROPRANOLOL HCL 60 MG PO SCH ×3 (08:37→21:57)
[2017-01-28] MEDS: busPIRone HCl 5 MG TAB PO SCH (08:37)
[2017-01-28] MEDS ORDERED: Potassium Chloride 40 MEQ in Premix Bag 1 BAG IVPB SCH ×2 (11:15→18:00)
[2017-01-28] MEDS ORDERED: Potassium Chloride 40 MEQ, IV Admixture Fee 1 EACH in Sodium Chloride 0.9% 250 ML 250 ML IVPB SCH (11:30)
[2017-01-28] MEDS ORDERED: Multivitamins, Adult 10 ML, Folic Acid 1 MG, Thiamine HCl 100 MG in Dextrose 5 %-0.45 %... IV SCH ×4 (12:45)
--- NOTE | 2017-01-28 14:21 | PRG ---
DATE OF SERVICE: 01/28/2017 SUBJECTIVE: Ms. Carrera feels better. She had a good bowel movement today. She has been tolerating a diet. She has no abdominal pain. OBJECTIVE: VITAL SIGNS: Temperature is 98, pulse 67, blood pressure 154/71. LUNGS: Clear. ABDOMEN: Soft and nontender. Bowel sounds positive. LABORATORY STUDIES: White count is 5.7, hemoglobin is 9.6, platelet count 182. Sodium 135, potassi um 3.2, BUN and creatinine are 6 and 0.57. Cortisol less than 1. ASSESSMENT: 1. Recurrent admissions with vague abdominal discomfort, leukocytosis, no fever with negative cultu res. In mid December, she had CAT scan changes of diverticulitis. In late December, she had no changes of diverticulitis. Now, she has no changes of diverticulitis. 2. With her abdominal pain, EGD was performed and was normal. 3. I suspect she has adrenal insufficiency as cortisol is less than 1. This may be adrenal crises that she is coming in with admission with hypotension, leukocytosis, abdominal pain, hypokalemia, hy ponatremia. I see no signs of diverticular disease at this time. We will follow from a distance. I think getting on a good steroid regimen for adrenal insufficiency is going to be important. She h as been on chronic steroids for many years. It is unclear which she has been taking at home recentl y. She states that she was on methylprednisolone 4 mg a day at home, but probably is not enough whe n she gets sick. At this point in time, there are no signs of diverticular disease. We will follow from a distance.
[2017-01-28 19:40] LABS: Anion Gap 16 mmol/L (10-20); BUN (Urea Nitrogen) 7 mg/dL (9.8-20.1); Calc. Creatinine Clearance 68 mL/min (70-130); Calcium 8.4 mg/dL (7.8-10.44); Carbon Dioxide 19 mmol/L (23-31); Chloride 103 mmol/L (98-107); Estimated GFR-MDRD 78
[2017-01-28] MEDS ORDERED: Pantoprazole 40 MG VIAL IVP SCH (21:00)
[2017-01-28] MEDS: Lorazepam 0.5 MG TAB PO PRN (22:11)
[2017-01-28] MEDS: HYDROcodone/Acetaminophen 5/325 mg Tablet PO PRN (22:47)
[2017-01-29] MEDS: Piperacillin/Tazobactam 3.375 GM in Sodium Chloride 0.9% 100 ML IVPB SCH ×4 (04:09→22:32)
[2017-01-29 04:21] LABS: #Eosinphils 0.2 thou/uL (0.0-0.7); #Lymphocytes 2.3 thou/uL (1.20-3.40); #Monocytes 0.5 thou/uL (0.11-0.59); #Neutrophils 3.3 thou/uL (1.40-6.50); %Basophils 0.3 % (0.0-1.0); %Lymphocytes 36.9 % (21.0-51.0); %Monocytes 7.5 % (0.0-10.0); Hematocrit 28.3 % (36.0-47.0); Mean Platelet Volume 6.7 fL (7.4-10.4); Red Blood Cell (RBC) Count 2.87 mill/uL (4.20-5.40); White Blood Cell (WBC) Count 6.3 thou/uL (4.8-10.8)
[2017-01-29 04:43] LABS: Anion Gap 11 mmol/L (10-20); BUN (Urea Nitrogen) 6 mg/dL (9.8-20.1); Calc. Creatinine Clearance 75 mL/min (70-130); Carbon Dioxide 24 mmol/L (23-31); Chloride 103 mmol/L (98-107); Estimated GFR-MDRD 87; Magnesium 1.5 mg/dL (1.6-2.6)
[2017-01-29] MEDS: metroNIDAZOLE 500 MG in Premix Bag 1 BAG IVPB SCH ×4 (04:54→22:42)
--- NOTE | 2017-01-29 06:00 | PDOC.FM ---
- Subjective Subjective: pt reports she is feeling a little better today but still becomes a little nauseated after meals. She states she had one episode of loose stool yesterday. still endorses llq pain. no acute events overnight and remains in sinus rhythm on the monitor. - Objective Vital Signs & Weight: Vital Signs (12 hours) Temp Pulse Resp BP BP 01/29/17 03:27 97.1 F L 71 20 133/60 01/28/17 21:57 77 136/60 01/28/17 20:00 99.0 F 77 20 133/60 Weight Admit Weight 61.689 kg Weight 65.408 kg I&O: 01/27/17 01/28/17 01/29/17 06:59 06:59 06:59 Intake Total 2510 940 1775 Output Total 2115 462 3257 Balance 1460 590 575 Result Diagrams: 01/29/17 04:04 01/29/17 04:04 <Kj Harris - Last Filed: 01/29/17 07:57> - Objective Vital Signs & Weight: Vital Signs (12 hours) Temp Pulse Resp BP BP Pulse Ox 01/29/17 09:03 68 155/68 H 01/29/17 07:02 96.9 F L 68 18 155/68 H 96 01/29/17 03:27 97.1 F L 71 20 133/60 Weight Admit Weight 136 lb Weight 144 lb 3.2 oz I&O: 01/28/17 01/29/17 01/30/17 06:59 06:59 06:59 Intake Total 940 1775 Output Total 350 1200 Balance 590 575 Result Diagrams: 01/29/17 04:04 01/29/17 04:04 <Gamaliel Daly - Last Filed: 01/29/17 11:26> Phys Exam - Physical Examination Constitutional: NAD HEENT: PERRLA, moist MMs Neck: no nodes Respiratory: no wheezing, no rales, no rhonchi, clear to auscultation bilateral Cardiovascular: RRR, no significant murmur, no rub Gastrointestinal: soft, no distention, positive bowel sounds llq ttp Musculoskeletal: no edema, pulses present Neurological: non-focal, moves all 4 limbs Deviation from normal: senile purpura <Kj Harris - Last Filed: 01/29/17 07:57> Dx/Plan (1) Afib Code(s): I48.91 - UNSPECIFIED ATRIAL FIBRILLATION Status: Acute Qualifiers: Atrial fibrillation type: paroxysmal Qualified Code(s): I48.0 - Paroxysmal atrial fibrillation (2) Diverticulitis large intestine w/o perforation or abscess w/o bleeding Code(s): K57.32 - DVTRCLI OF LG INT W/O PERFORATION OR ABSCESS W/O BLEEDING Status: Acute (3) Hyperlipidemia Code(s): E78.5 - HYPERLIPIDEMIA, UNSPECIFIED Status: Acute (4) Hypertension Code(s): I10 - ESSENTIAL (PRIMARY) HYPERTENSION Status: Acute Qualifiers: Hypertension type: essential hypertension Qualified Code(s): I10 - Essential (primary) hypertension (5) Hypokalemia Code(s): E87.6 - HYPOKALEMIA Status: Resolved (6) Hypomagnesemia Code(s): E83.42 - HYPOMAGNESEMIA Status: Resolved - Plan Plan: 24 hour urine potassium and aldosterone pending and awaiting results very likely adrenally insufficient 2/2 chronic steroid use and cortisol <1, but given persistent hypokalemia concern for aldosterone dysregulation remains will likely need op f/u pts symptoms consistent with hypokalemia vs infectious process w/ h/o of htn and severe hypokalemia w/ use of diuretics we will work pt up for hyperaldosteronism we will continue IV abx for now given pts leukocytosis on initial presentation and previous h/o of diverticulitis pt has been afebrile since admission and white count has trended down we will continue home steroid dose since she is 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 dependent for hypokalemia and hypomagnesmia replace potassium and magnesium as appropriate recheck in AM replace elytes as appropriate clinically pt continues to improve, vitals are stable and white count continues to trend down we will DC vancomycin and continue to treat with zosyn and flagyl in hopes of transitioning to po medications soon <Kj Harris - Last Filed: 01/29/17 07:57> Attending Addendum - Attending Addendum I personally evaluated the patient and discussed the management with resident[] I agree with the History, Examination, Assessment and Plan documented above. <Gamaliel Daly - Last Filed: 01/29/17 11:26>
[2017-01-29 06:41] LABS: Potassium, Urine 45.3 mmol/L
[2017-01-29] MEDS ORDERED: Magnesium Sulfate 3 GM in Sodium Chloride 0.9% 100 ML IVPB SCH (08:00)
[2017-01-29] MEDS ORDERED: Potassium Chloride 20 MEQ TAB PO SCH (08:00)
[2017-01-29] MEDS: Enoxaparin Sodium 40 MG/0.4 ML SYRINGE SC SCH (09:02)
[2017-01-29] MEDS: Prenatal Vitamin 1 TAB PO SCH (09:03)
[2017-01-29] MEDS: Aspirin 81 mg Enteric Coated Tablet PO SCH (09:03)
[2017-01-29] MEDS: methylPREDNISolone 4 mg Tablet PO SCH (09:03)
[2017-01-29] MEDS: PROPRANOLOL HCL 60 MG PO SCH ×3 (09:04→20:59)
[2017-01-29] MEDS: busPIRone HCl 5 MG TAB PO SCH (09:04)
[2017-01-29] MEDS ORDERED: methylPREDNISolone Sod Succ/PF 125 MG/2 ML VIAL IVP SCH (10:45)
[2017-01-29] MEDS ORDERED: GoLYTELY 4,000 ml Bottle PO SCH (18:00)
[2017-01-29] MEDS: HYDROcodone/Acetaminophen 5/325 mg Tablet PO PRN (18:10)
--- NOTE | 2017-01-29 20:29 | PRG ---
DATE OF SERVICE: 01/29/2017 SUBJECTIVE: Ms. Carrera is doing well and eating and has some vague lower abdominal discomfort in the left. She has no nausea or vomiting. MEDICATIONS: BuSpar, Zyrtec, Flexeril, Bentyl, Lovenox, vitamin D, Pepcid, Apresoline, lorazepam, m ethylprednisolone 4 mg daily, 80 q.12 h., morphine, Zofran, Protonix, Zosyn, p.r.n. Imitrex, m ultivitamin, Inderal, and Synthroid. OBJECTIVE: VITAL SIGNS: Temperature 96, blood pressure 155/68, respirations 18, and pulse 68. LUNGS: Clear. ABDOMEN: Soft. LABORATORY DATA: White count 6.3, hemoglobin 9.4, platelet count 176. Sodium 135, potassium 3.2, B UN and creatinine are 6 and 0.66. ASSESSMENT: 1. Adrenal insufficiency, it is unclear how this relates to admission, but she had been in a couple of times. She comes in with borderline blood pressure and is very dehydrated with multiple electro lyte abnormalities including hypokalemia and hyponatremia and gets better very quickly with IV fluid s. She states she had not run out of her steroids or stopped taking them. She presumptively is on these for her Sjogren's. 2. Admission last month for diverticulitis. Followup CAT scan on that exam showed no diverticuliti s. There is very minimal tenderness. She had leukocytosis on admission, this has resolved quickly. She is empirically being treated for this again. 3. Epigastric pain on admission as well. This has resolved quickly and she had no esophagogastrodu odenoscopy. RECOMMENDATIONS: 1. I discussed with the Family Medicine residents. I think we can switch to p.o. antibiotics for d iverticulitis, presumptive treatment and offered the patient a colonoscopy to evaluate her colon to see if there are changes or chronic inflammation there as she has not had one in many years, but the re are no objective findings of diverticulitis at this time. 2. At this point in time, she may not need the stress dose steroids any longer but she will need to be maintained on her baseline steroids at discharge and then given instructions on stress dose ster oids for any viral illness or other acute physical stressors.
[2017-01-29] MEDS ORDERED: PROVENTIL INHALER 6.7 G (200 INHALATIONS) INH PRN (20:56)
[2017-01-30] MEDS: Piperacillin/Tazobactam 3.375 GM in Sodium Chloride 0.9% 100 ML IVPB SCH (04:25)
[2017-01-30] MEDS: HYDROcodone/Acetaminophen 5/325 mg Tablet PO PRN ×2 (05:37→13:54)
[2017-01-30 06:13] LABS: #Lymphocytes 1.8 thou/uL (1.20-3.40); #Monocytes 0.4 thou/uL (0.11-0.59); #Neutrophils 5.5 thou/uL (1.40-6.50); %Basophils 0.3 % (0.0-1.0); %Eosinophils 0.4 % (0.0-10.0); %Lymphocytes 23.1 % (21.0-51.0); Hematocrit 29.8 % (36.0-47.0); Red Blood Cell (RBC) Count 3.04 mill/uL (4.20-5.40); White Blood Cell (WBC) Count 7.7 thou/uL (4.8-10.8)
[2017-01-30 06:50] LABS: Anion Gap 15 mmol/L (10-20); BUN (Urea Nitrogen) Less than 4 mg/dL (9.8-20.1); Calc. Creatinine Clearance 84 mL/min (70-130); Calcium 8.2 mg/dL (7.8-10.44); Carbon Dioxide 25 mmol/L (23-31); Chloride 101 mmol/L (98-107); Estimated GFR-MDRD Greater than 90
[2017-01-30] MEDS ORDERED: Potassium Chloride 40 MEQ in Premix Bag 1 BAG IVPB SCH (07:00)
[2017-01-30] MEDS ORDERED: Potassium Chloride 40 MEQ in Sodium Chloride 0.9% 500 ML IVPB SCH (07:15)
[2017-01-30] MEDS ORDERED: Propofol 200 MG/20 ML VIAL ONE (08:47)
--- NOTE | 2017-01-30 08:54 | PDOC.FM ---
- Subjective Subjective: states she is feeling better today. No acute events overnight potassium remains low. Will replace. - Objective Vital Signs & Weight: Vital Signs (12 hours) Temp Pulse Resp BP BP Pulse Ox 01/30/17 07:05 97.6 F 81 18 178/72 H 96 01/30/17 04:00 76 20 172/78 H 01/30/17 00:54 99 01/29/17 21:10 75 16 99 01/29/17 20:58 71 164/73 H Weight Admit Weight 61.689 kg Weight 65.408 kg I&O: 01/29/17 01/30/17 01/31/17 06:59 06:59 06:59 Intake Total 1775 850 Output Total 1200 1000 Balance 575 -150 Result Diagrams: 01/30/17 05:36 01/30/17 05:36 <Kj Harris - Last Filed: 01/30/17 12:20> - Objective Vital Signs & Weight: Vital Signs (12 hours) Temp Pulse Resp BP BP Pulse Ox 01/30/17 10:00 81 178/72 H 01/30/17 09:59 178/72 H 01/30/17 07:05 97.6 F 81 18 178/72 H 96 01/30/17 04:00 76 20 172/78 H 01/30/17 00:54 99 Weight Admit Weight 61.689 kg Weight 65.408 kg I&O: 01/29/17 01/30/17 01/31/17 06:59 06:59 06:59 Intake Total 1775 850 Output Total 1200 1000 Balance 575 -150 Result Diagrams: 01/30/17 05:36 01/30/17 05:36 <Wilberto Romano - Last Filed: 01/30/17 13:06> Phys Exam - Physical Examination Constitutional: NAD HEENT: sclera anicteric Respiratory: no wheezing, no rales, no rhonchi, clear to auscultation bilateral Cardiovascular: RRR, no significant murmur, no rub Gastrointestinal: soft, non-tender, no distention, positive bowel sounds 2+ pitting edema, bl le Neurological: non-focal, moves all 4 limbs Deviation from normal: senile purpura <Kj Harris - Last Filed: 01/30/17 12:20> Dx/Plan (1) Afib Code(s): I48.91 - UNSPECIFIED ATRIAL FIBRILLATION Status: Acute Qualifiers: Atrial fibrillation type: paroxysmal Qualified Code(s): I48.0 - Paroxysmal atrial fibrillation (2) Diverticulitis large intestine w/o perforation or abscess w/o bleeding Code(s): K57.32 - DVTRCLI OF LG INT W/O PERFORATION OR ABSCESS W/O BLEEDING Status: Acute (3) Hyperlipidemia Code(s): E78.5 - HYPERLIPIDEMIA, UNSPECIFIED Status: Acute (4) Hypertension Code(s): I10 - ESSENTIAL (PRIMARY) HYPERTENSION Status: Acute Qualifiers: Hypertension type: essential hypertension Qualified Code(s): I10 - Essential (primary) hypertension (5) Hypokalemia Code(s): E87.6 - HYPOKALEMIA Status: Resolved (6) Hypomagnesemia Code(s): E83.42 - HYPOMAGNESEMIA Status: Resolved - Plan Plan: 24 hour urine potassium 88 suggestive of renal loss, but possible scewed result 2/2 ARB use 24 hr aldosterone pending and awaiting results very likely adrenally insufficient 2/2 chronic steroid use and cortisol <1, but given persistent hypokalemia concern for aldosterone dysregulation remains will likely need op f/u pts symptoms consistent with hypokalemia vs infectious process w/ h/o of htn and severe hypokalemia w/ use of diuretics we will work pt up for hyperaldosteronism we will continue IV abx for now given pts leukocytosis on initial presentation and previous h/o of diverticulitis pt has been afebrile since admission and white count has trended down we will continue home steroid dose since she is 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 dependent for hypokalemia and hypomagnesmia replace potassium and magnesium as appropriate recheck in AM replace elytes as appropriate clinically pt continues to improve, vitals are stable and white count continues to trend down we will DC vancomycin and continue to treat with zosyn and flagyl in hopes of transitioning to po medications soon treatment course of 5 days of zosyn and flagyl for presumed diverticulitis will dc meds today colonoscopy today to r/o or confirm diverticulitis looking through patients recent admissions she comes in every time with hypokalemia, but it it is unclear if this is a secondary finding from other illness or the primary reason for her symptoms. Given vague abdominal symptoms and n/v with weakness hypokalemia could very likely be the cause for her symptoms. steroids were given yesterday for concern of adrenal insufficiency, but her potassium continues to be low case management to see pt for placement colonoscopy showed no evidence of diverticulitis, dc abx Likely DC today or tomorrow pending placement repeat bmp this afternoon <Kj Harris - Last Filed: 01/30/17 12:20> Attending Addendum - Attending Addendum I personally evaluated the patient and discussed the management with . [Kimberly ] I agree with the History, Examination, Assessment and Plan documented above with any addition or exceptions noted below. Pt. improved symptomatically, but developed 2+ edema with fluids. Colonoscopy negative for diverticulitis. Hypokalemia, hypomagnesemia likely due to decreased intake since acutely ill, will replace and use potassium sparing diuretic, oral Mag replacement and continue to monitor as OP. OK to return to [facility]. <Wilberto Romano - Last Filed: 01/30/17 13:06>
[2017-01-30] MEDS ORDERED: Promethazine HCl 25 MG/ML VIAL IM PRN (09:30)
[2017-01-30] MEDS ORDERED: Ondansetron HCl/PF 4 MG/2 ML Vial IVP PRN (09:30)
[2017-01-30] MEDS ORDERED: Promethazine HCl 25 MG/ML VIAL SLOW IVP PRN (09:30)
[2017-01-30] MEDS: Enoxaparin Sodium 40 MG/0.4 ML SYRINGE SC SCH (09:59)
[2017-01-30] MEDS: Aspirin 81 mg Enteric Coated Tablet PO SCH (09:59)
[2017-01-30] MEDS: methylPREDNISolone 4 mg Tablet PO SCH (09:59)
[2017-01-30] MEDS: Prenatal Vitamin 1 TAB PO SCH (09:59)
[2017-01-30] MEDS: Saccharomyces boulardii 250 MG CAP PO SCH (10:00)
[2017-01-30] MEDS: busPIRone HCl 5 MG TAB PO SCH (10:00)
[2017-01-30] MEDS: PROPRANOLOL HCL 60 MG PO SCH ×3 (10:10→21:03)
--- NOTE | 2017-01-30 10:46 | OP ---
DATE OF PROCEDURE: 01/30/2017 SURGEON: Abiodun Tello M.D. PROCEDURE: Colonoscopy. PREOPERATIVE DIAGNOSES: 1. Diverticulosis, diverticulitis 1 month ago. 2. Recurrent admissions with leukocytosis and vague abdominal discomfort. 3. Personal history of colon polyps. POSTOPERATIVE DIAGNOSES: 1. Six colon polyps 2-5 mm in the ascending colon removed by snare polypectomy and sent to patholog y. 2. Rectal polyp, sessile, 4 mm, removed by snare polypectomy and submitted to Pathology. 3. Diverticulosis coli in the sigmoid and descending colon without any evidence of acute or chronic diverticulitis. 4. Otherwise, normal colonoscopy. RECOMMENDATIONS: Fiber rich diet. ANESTHESIA: TIVA. PROCEDURE IN DETAIL: After the patient was informed of the risks, benefits, possible complications of endoscopy including perforation, bleeding, reactions to medication and aspiration, informed conse nt was obtained. The patient brought to endoscopy suite. The main point of the procedure was to evaluate for possible ongoing inflammation sigmoid colon as s he has had 2 subsequent admissions after the diverticulitis in mid December with vague abdominal pain and leukocytosis. CAT scans have been negative. The endoscope was advanced through anal canal through the colon to cecum that was identified by ileo cecal valve and appendiceal orifice. There was diverticulosis in the descending and sigmoid colon w ithout any evidence of acute or chronic diverticulitis. There were 6 small polyps located in the as cending colon, hepatic flexure region, all sessile between 3 and 6 mm in size. These were removed by snare polypectomy and submitted to Pathology. There was 1 polyp in the rectum that was removed b y snare polypectomy and submitted to Pathology as well. The scope was removed. The patient tolerat ed the procedure well with no complications.
[2017-01-30] MEDS ORDERED: Magnesium 2 GM/NS 0.9% 100 ML 2 GM in Premix Bag 1 BAG IVPB SCH (12:30)
[2017-01-30] MEDS ORDERED: Spironolactone 25 MG TAB PO SCH (14:45)
[2017-01-30] MEDS ORDERED: Potassium Chloride 20 MEQ TAB PO SCH (19:00)
[2017-01-31] MEDS ORDERED: Spironolactone 25 MG TAB PO SCH ×2 (06:30→17:00)
--- NOTE | 2017-01-31 06:43 | PDOC.FM ---
- Subjective Subjective: Pt reports some wheezing and increased lower extremity edema since yesterday. She otherwise reports resolution of other s/s. - Objective Vital Signs & Weight: Vital Signs (12 hours) Temp Pulse Resp BP BP BP Pulse Ox 01/31/17 04:00 97.9 F 68 18 157/68 H 01/31/17 03:09 65 20 98 01/30/17 21:03 69 135/63 01/30/17 21:02 134/63 01/30/17 20:00 97.5 F L 69 20 01/30/17 19:28 97.5 F L 69 20 135/63 Weight Admit Weight 61.689 kg Weight 65.408 kg I&O: 01/29/17 01/30/17 01/31/17 06:59 06:59 06:59 Intake Total 1775 850 235 Output Total 1200 1000 600 Balance 575 -150 -365 Result Diagrams: 01/30/17 05:36 01/31/17 05:43 <Kj Harris - Last Filed: 01/31/17 09:11> - Objective Vital Signs & Weight: Vital Signs (12 hours) Temp Pulse Resp BP BP BP Pulse Ox 01/31/17 09:04 175/74 H 01/31/17 09:03 70 175/74 H 01/31/17 07:20 97.2 F L 70 18 175/74 H 93 L 01/31/17 04:00 97.9 F 68 18 157/68 H 01/31/17 03:09 65 20 98 Weight Admit Weight 61.689 kg Weight 65.408 kg I&O: 01/30/17 01/31/17 02/01/17 06:59 06:59 06:59 Intake Total 850 235 Output Total 1000 600 Balance -150 -365 Result Diagrams: 01/30/17 05:36 01/31/17 05:43 <Wilberto Romano - Last Filed: 01/31/17 11:53> Phys Exam - Physical Examination Constitutional: NAD HEENT: PERRLA, sclera anicteric Neck: no nodes Respiratory: no wheezing, no rales, no rhonchi, clear to auscultation bilateral Cardiovascular: RRR, no significant murmur, no rub Gastrointestinal: soft, non-tender, no distention, positive bowel sounds Musculoskeletal: pulses present, edema present 2+ pitting edema Neurological: non-focal, moves all 4 limbs Skin: cap refill <2 seconds <Kj Harris - Last Filed: 01/31/17 09:11> Dx/Plan (1) Hypokalemia Code(s): E87.6 - HYPOKALEMIA Status: Resolved (2) Hypomagnesemia Code(s): E83.42 - HYPOMAGNESEMIA Status: Resolved (3) Diverticulitis large intestine w/o perforation or abscess w/o bleeding Code(s): K57.32 - DVTRCLI OF LG INT W/O PERFORATION OR ABSCESS W/O BLEEDING Status: Resolved (4) Afib Code(s): I48.91 - UNSPECIFIED ATRIAL FIBRILLATION Status: Chronic Qualifiers: Atrial fibrillation type: paroxysmal Qualified Code(s): I48.0 - Paroxysmal atrial fibrillation (5) Hyperlipidemia Code(s): E78.5 - HYPERLIPIDEMIA, UNSPECIFIED Status: Acute (6) Hypertension Code(s): I10 - ESSENTIAL (PRIMARY) HYPERTENSION Status: Acute Qualifiers: Hypertension type: essential hypertension Qualified Code(s): I10 - Essential (primary) hypertension - Plan Plan: 24 hr aldosterone pending and awaiting results very likely adrenally insufficient 2/2 chronic steroid use and cortisol <1, but given persistent hypokalemia concern for aldosterone dysregulation remains will likely need op f/u pt has been afebrile since admission and white count has trended down we will continue home steroid dose since she is 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 dependent for hypokalemia and hypomagnesmia replace potassium and magnesium as appropriate recheck in AM replace elytes as appropriate clinically pt continues to improve, vitals are stable and white count continues to trend down steroids were given yesterday for concern of adrenal insufficiency, but her potassium continues to be low case management to see pt for placement colonoscopy showed no evidence of diverticulitis, dc abx Likely DC today or tomorrow pending placement repeat bmp this afternoo awaiting BMP result pt had some le swelling will diurese w/ K+ sparing diuretic start oral K+ 20meq BID start spirinolactone 12.5 BID start Slow-mag 64mg BID potassium normalized continue current plan, add 20 meqs to dinh K+ and diurese with 40 MG po lasix Hold all IV fluids vitals stable awaiting placement re-evaluate this afternoon <Kj Harris - Last Filed: 01/31/17 09:11> Attending Addendum - Attending Addendum I personally evaluated the patient and discussed the management with Dr. Harris I agree with the History, Examination, Assessment and Plan documented above with any addition or exceptions noted below. Electrolytes stabilizing. Patient feeling much improved. VS stable. Bibasilar rhales and dyspnea: given dose of Lasix along with KCl and spironolactone to diurese and maintain K+ at normal level. If breathing improves, may be d/c'd this pm. <Wilberto Romano - Last Filed: 01/31/17 11:53>
[2017-01-31 07:10] LABS: Calcium 8.2 mg/dL (7.8-10.44); Chloride 102 mmol/L (98-107); Magnesium 1.8 mg/dL (1.6-2.6)
[2017-01-31 07:27] LABS: BUN (Urea Nitrogen) 5 mg/dL (9.8-20.1); Calc. Creatinine Clearance 80 mL/min (70-130); Carbon Dioxide 25 mmol/L (23-31); Estimated GFR-MDRD Greater than 90
[2017-01-31 07:35] LABS: Anion Gap 11 mmol/L (10-20)
[2017-01-31] MEDS ORDERED: Magnesium Chloride 64 MG TAB PO SCH (09:00)
[2017-01-31] MEDS: Aspirin 81 mg Enteric Coated Tablet PO SCH (09:03)
[2017-01-31] MEDS: methylPREDNISolone 4 mg Tablet PO SCH (09:03)
[2017-01-31] MEDS: Prenatal Vitamin 1 TAB PO SCH (09:03)
[2017-01-31] MEDS: Saccharomyces boulardii 250 MG CAP PO SCH (09:03)
[2017-01-31] MEDS: Potassium Chloride 20 MEQ TAB PO SCH ×2 (09:03→16:53)
[2017-01-31] MEDS: busPIRone HCl 5 MG TAB PO SCH (09:03)
[2017-01-31] MEDS: PROPRANOLOL HCL 60 MG PO SCH ×2 (09:03→15:52)
[2017-01-31] MEDS: Enoxaparin Sodium 40 MG/0.4 ML SYRINGE SC SCH (09:04)
[2017-01-31] MEDS ORDERED: Furosemide 40 MG TAB PO SCH (09:15)
[2017-01-31] MEDS ORDERED: Potassium Chloride 20 MEQ TAB PO SCH (09:15)
[2017-01-31 15:56] VITALS: BP 169/72
[2017-01-31 16:00] VITALS: TEMP 99.3
[2017-02-01] MEDS ORDERED: Ergocalciferol 1.25 MG(50,000 UNITS) CAP PO SCH (09:00)
--- NOTE | 2017-02-02 07:21 | DIS-2 ---
DATE OF ADMISSION: 01/25/2017 DATE OF DISCHARGE: 01/31/2017 LOCATION: [facility] in [place], [place]. COSIGNER: Wilberto Romano MD CONSULTATION: Gastroenterology, Dr. Abiodun Tello. PROCEDURES PERFORMED: 1. Abdomen and pelvis CT on 01/25/2017, showed punctate nonobstructing left nephrolithiasis. 2. Showed extensive colonic diverticulosis. 3. Chest x-ray performed on 01/25/2017, showed chronic findings that were stable. No active cardio pulmonary abnormalities were demonstrated. 4. Chest x-ray performed on 01/26/2017, showed right internal jugular central venous catheter and g ood radiographic position. 5. EGD performed on 01/27/2017 showed mild coffee ground like heme staining of the mucosa, but no o vert ulcerations or erosions. There was also mild atrophic gastritis. Hiatal hernia. Normal duode num. 6. Colonoscopy performed on 01/30/2017, revealed 6 colon polyps, 2 to 5 mm in size in the ascending colon, which were removed by snare polypectomy and sent for pathology. Showed a rectal polyp sessi le, 4 mm also removed by snare polypectomy and submitted for pathology. 7. Diverticulosis coli in the sigmoid and descending colon without any evidence of acute or chronic diverticulitis. Otherwise, normal colonoscopy. PRIMARY DIAGNOSES: 1. Acute diverticulitis. 2. Hypokalemia. SECONDARY DIAGNOSES: 1. Leukocytosis. 2. Hypomagnesemia. 3. Hypertension. 4. Atrial fibrillation. 5. Hyperlipidemia. DISCHARGE MEDICATIONS: 1. Slow-Mag 64 mg p.o. b.i.d. 2. Spironolactone 12.5 mg p.o. b.i.d. 3. Albuterol sulfate. 4. Aspirin. 5. Cetirizine. 6. Cholecalciferol. 7. Clonidine. 8. Cyclobenzaprine. 9. Dicyclomine. 10. Fluticasone propionate. 11. Folic acid. 12. [place]. 13. Propranolol. 14. Ranitidine. 15. Rosuvastatin. 16. Sumatriptan. 17. [place] Thyroid. 18. Buspirone. 19. Diphenhydramine. 20. Hydralazine. 21. Methylprednisolone 4 mg tablets p.o. daily. DISCONTINUED MEDICATIONS: Furosemide. HISTORY OF PRESENT ILLNESS AND HOSPITAL COURSE: The patient is a 76-year-old female that originally presented to the ER with nausea and vomiting, and was found to have a potassium of 2.4 on admission . Additionally, her white count on presentation was found to be 20.1. Platelet count of 408. The patient had a prior recent admission from approximately 2 weeks before, which showed acute diverticu litis on the CT scan. Given this information and the fact that the patient had a CT without contras t secondary to an initially elevated creatinine on initial presentation, the patient was treated for acute diverticulitis. She was started on vancomycin, Zosyn, and Flagyl and the vancomycin was subs equently stopped. She completed a full course of Zosyn and Flagyl. The patient has a history of frequent hospitalizations for similar type symptoms. Looking back to h er prior admissions and hospitalizations, she comes in persistently with low potassium 2.4 to 2.6 on this admission. On prior admission, it was 2.4 and on admission prior to that it was 2.7. After s peaking with the refrigeration person, he was not convinced this was a bout of acute diverticulitis an d the patient's symptoms are consistent with hypokalemia. She experienced some weakness and general ized abdominal pain along with nausea and vomiting. It is unclear if her chronic steroid dependence and adrenal suppression/adrenal insufficiency has something to do with this or if this is the prima ry cause of her symptoms. Pertinent labs from this visit showed a spot urine creatinine of 23.91. A spot urine potassium was 24.7. A 24-hour urine potassium of 88. Followup urine creatinine and urine potassium were performe d, which showed a urine creatinine of 92.96 and a urine potassium of 45.3. A 24-hour urine aldoster one was less than 2.5. A random urine aldosterone was less than 4.88. Because of the persistently low potassium and magnesium, the patient was given magnesium supplementa tion on discharge and her Lasix medication was switched to a potassium-sparing diuretic, spironolact one. The patient's vitals were remained stable throughout the admission and the patient was afebril e throughout. DISPOSITION: The patient left the hospital in stable condition. LOCATION: The patient was discharged to a fdc facility. DIET: Heart healthy. ACTIVITY: As tolerated. FOLLOWUP: Follow up with the primary care provider in 3 to 5 days for an electrolyte check and hosp ital followup.
== END 2017-01-31 19:24 | DRG 392 ==
LOC: ERS 11:12 → 2NO 13:22
PROVIDERS: ADMIT Family Medicine; ATTEND Family Medicine
PROC: 02HV33Z Insertion of Infusion Device into Superior Vena Cava, Percutaneous Approach (ICD-10-PCS; 2017-01-26)
PROC: 0DJ08ZZ Inspection of Upper Intestinal Tract, Via Natural or Artificial Opening Endoscopic (ICD-10-PCS; 2017-01-28)
PROC: 0DBK8ZX Excision of Ascending Colon, Via Natural or Artificial Opening Endoscopic, Diagnostic (ICD-10-PCS; principal; 2017-01-30)
PROC: 0DBP8ZX Excision of Rectum, Via Natural or Artificial Opening Endoscopic, Diagnostic (ICD-10-PCS; 2017-01-30)
DX: K57.32 Diverticulitis of large intestine without perforation or abscess without bleeding (principal); N17.9 Acute kidney failure, unspecified; E87.2 Acidosis; I11.0 Hypertensive heart disease with heart failure; I50.30 Unspecified diastolic (congestive) heart failure; E87.1 Hypo-osmolality and hyponatremia; E27.40 Unspecified adrenocortical insufficiency; R10.13 Epigastric pain; I48.0 Paroxysmal atrial fibrillation; I25.2 Old myocardial infarction; E78.5 Hyperlipidemia, unspecified; K57.30 Diverticulosis of large intestine without perforation or abscess without bleeding; E03.9 Hypothyroidism, unspecified; E87.6 Hypokalemia; M54.5 Low back pain; G89.29 Other chronic pain; K29.40 Chronic atrophic gastritis without bleeding; E83.42 Hypomagnesemia; K63.5 Polyp of colon; D12.8 Benign neoplasm of rectum; K44.9 Diaphragmatic hernia without obstruction or gangrene; Z79.82 Long term (current) use of aspirin; Z79.52 Long term (current) use of systemic steroids; Z82.49 Family history of ischemic heart disease and other diseases of the circulatory system; Z84.89 Family history of other specified conditions
CPT/HCPCS: 36415; 36416; 51701; 71010; 71020; 74176; 80048; 80053; 80202; 81003; 82088; 82533; 82570; 83605; 83690; 83735; 84133; 84443; 84484; 85025; 87040; 87086; 87324; 87449; 88305; 93005; 94640; 94760; 96361; 96365; 96375; A4216; A4353; G8978-GP-CL; G8979-GP-CJ; G8987-GO-CJ; G8988-GO-CH; J1650; J2001; J2270; J2405; J2543; J2704; J2930; J3370; J3475; J3480; J7050; J7620

== ENCOUNTER 2017-05-07 16:11 | Inpatient (IN) | payer MEDICARE, BC ==
[~2017-05-07 16:11] MED LIST: ISOVUE-370 76%-LOCM 1 ML ONE
[2017-05-07 16:55] LABS: Bilirubin Negative (Negative); Blood, Urine Negative (Negative); Clarity CLEAR (Clear); Glucose, Urine (Dipstick) Negative (Negative); Leukocyte Negative (Negative); Nitrite Negative (Negative); Protein, Urine (Dipstick) Negative (Neg-Trace); Specific Gravity, Urine 1.016 (1.002-1.036); Urobilinogen 0.2 mg/dL (0.2-1.0); pH, Urine 7.5 (5.0-9.0)
[2017-05-07 17:09] LABS: #Eosinphils 0.1 thou/uL (0.0-0.7); #Lymphocytes 1.6 thou/uL (1.20-3.40); #Monocytes 0.6 thou/uL (0.11-0.59); #Neutrophils 11.6 thou/uL (1.40-6.50); %Basophils 0.1 % (0.0-1.0); %Eosinophils 0.6 % (0.0-10.0); %Lymphocytes 11.6 % (21.0-51.0); %Monocytes 4.5 % (0.0-10.0); %Neutrophils 83.2 % (42.0-75.0); Hemoglobin 11.6 g/dL (12.0-16.0); Mean Corpuscular HGB CONC 34.7 g/dL (32.0-36.0); Mean Corpuscular Hemoglobin 32.7 pg (27.0-31.0); Mean Corpuscular Volume 94.2 fl (81.0-99.0); Mean Platelet Volume 6.5 fL (7.4-10.4); Platelet Count 271 thou/uL (130-400); Red Blood Cell (RBC) Count 3.56 mill/uL (4.20-5.40)
[2017-05-07 17:32] LABS: ALT (SGPT) 13 U/L (8-55); AST (SGOT) 11 U/L (5-34); Albumin 3.5 g/dL (3.4-4.8); Alkaline Phosphatase 54 U/L (40-150); Anion Gap 13 mmol/L (10-20); BUN (Urea Nitrogen) 13 mg/dL (9.8-20.1); Bilirubin, Total 1.1 mg/dL (0.2-1.2); Calc. Creatinine Clearance 0 mL/min (70-130); Carbon Dioxide 27 mmol/L (23-31); Chloride 94 mmol/L (98-107); Estimated GFR-MDRD 90; Globulin 2.5 g/dL (2.4-3.5); Glucose 198 mg/dL (83-110); Potassium 3.8 mmol/L (3.5-5.1); Sodium 130 mmol/L (136-145)
[2017-05-07] MEDS ORDERED: Morphine 4 MG/ML VIAL ONE (17:32)
--- NOTE | 2017-05-07 19:35 | CT ---
ABDOMEN AND PELVIC CT SCAN WITH IV CONTRAST: History: Abdominal pain. Comparison: 01-11-17 FINDINGS: Post contrast CT examination of the abdomen demonstrates the lung bases to be clear. Status post chol ecystectomy. Liver, pancreas, spleen, adrenal glands and kidneys are unremarkable. No renal calculus or acute obstruction. There is left colon and sigmoid colon diverticulosis with some new focal per icolonic fat stranding at the mid descending colon, evidence for some acute diverticulitis, new from 01-11-17. No evidence for free air. IMPRESSION: Evidence for acute left colon diverticulitis without evidence for free air or abscess. No other signi ficant acute process. POS: PROSPER
[2017-05-07] MEDS ORDERED: metroNIDAZOLE 500 MG in Premix Bag 1 BAG IVPB SCH (20:30)
--- NOTE | 2017-05-07 21:59 | PDOC.EVN ---
Event Note - Event Note Event Note: [id number] H&P Dictated 1. Acute diverticulitis 2. Abdominal pain 3. HTN 4. H/O HPL 5. H/O Hypothyroidism plan: see orders
[2017-05-07] MEDS ORDERED: hydrALAZINE 20 MG/ML VIAL SLOW IVP PRN (22:22)
[2017-05-08] MEDS: Sodium Chloride 0.9% 1,000 ML IV SCH ×2 (00:17→09:15)
[2017-05-08] MEDS: Morphine 4 MG/ML VIAL SLOW IVP PRN ×2 (01:00→19:50)
[2017-05-08 05:30] LABS: #Eosinphils 0.1 thou/uL (0.0-0.7); #Lymphocytes 1.9 thou/uL (1.20-3.40); #Monocytes 0.5 thou/uL (0.11-0.59); #Neutrophils 7.4 thou/uL (1.40-6.50); %Eosinophils 1.3 % (0.0-10.0); %Lymphocytes 19.1 % (21.0-51.0); %Monocytes 4.8 % (0.0-10.0); %Neutrophils 74.7 % (42.0-75.0); Hemoglobin 10.4 g/dL (12.0-16.0); Mean Corpuscular HGB CONC 33.9 g/dL (32.0-36.0); Mean Corpuscular Hemoglobin 32.2 pg (27.0-31.0); Mean Corpuscular Volume 94.9 fl (81.0-99.0); Mean Platelet Volume 6.7 fL (7.4-10.4); Platelet Count 244 thou/uL (130-400); RBC Distribution Width 13.9 % (11.5-14.5); Red Blood Cell (RBC) Count 3.25 mill/uL (4.20-5.40); White Blood Cell (WBC) Count 9.8 thou/uL (4.8-10.8)
[2017-05-08 05:50] LABS: Anion Gap 12 mmol/L (10-20); BUN (Urea Nitrogen) 10 mg/dL (9.8-20.1); Calc. Creatinine Clearance 85 mL/min (70-130); Calcium 8.9 mg/dL (7.8-10.44); Carbon Dioxide 26 mmol/L (23-31); Chloride 99 mmol/L (98-107); Estimated GFR-MDRD Greater than 90; Glucose 97 mg/dL (83-110); Potassium 3.6 mmol/L (3.5-5.1); Sodium 133 mmol/L (136-145)
[2017-05-08] MEDS: metroNIDAZOLE 500 MG in Premix Bag 1 BAG IVPB SCH ×3 (06:18→21:05)
--- NOTE | 2017-05-08 07:07 | HP ---
CHIEF COMPLAINT: Abdominal pain. HISTORY OF PRESENT ILLNESS: The patient is a 76-year-old female with past medical history of diverticulitis, hypertension, hyperlipidemia, hypothyroidism , Sjogren syndrome, now came to the ER complaining of abdominal pain. The abdominal pain started last night, all of a sudden, left-sided, constant pain 10 /10. Denies any nausea. Denies any vomiting. Pain is persistent. sharp kind , No aggravating and relieving factors. Denies any fever, denies any chills, denies any cough, denies sputum production. Denies chest pain, denies palpitations. PAST MEDICAL HISTORY: As per HPI. PAST SURGICAL HISTORY: Appendectomy, hysterectomy, thyroidectomy. SOCIAL HISTORY: Denies smoking, denies alcohol, denies any drugs. ALLERGIES: Reviewed. MEDICATIONS: Reviewed. FAMILY HISTORY: Positive for heart problems. REVIEW OF SYSTEMS: CONSTITUTIONAL: Denies any fever, denies any chills. EYES: No vision problems. EARS: No hearing loss. NECK: Denies any neck pain. CARDIOVASCULAR: Denies any chest pain, palpitations. RESPIRATORY: Denies any cough. GASTROINTESTINAL: Positive for abdominal pain. GENITOURINARY: Denies dysuria. MUSCULOSKELETAL: Denies joint deformities. NEURO: Denies syncope. PSYCHIATRIC: Denies anxiety. All other systems are reviewed and are negative. PHYSICAL EXAMINATION: CONSTITUTIONAL/VITAL SIGNS: At the time of H&P performed, blood pressure is 162 /63, heart rate 75, respiration rate 18. GENERAL: The patient appears comfortable. HEENT: Pupils equal, round, and reactive to light. ENT patent. Hearing is intact. Tongue is moist. NECK: Supple, no JVD. CARDIOVASCULAR: S1, S2 present. Regular rate and rhythm. No murmurs. RESPIRATORY: No wheezing, no rhonchi. Breath sounds equal. GASTROINTESTINAL: The abdomen is distended, left-sided abdomen tender to palpate. No guarding, no organomegaly, no masses felt. MUSCULOSKELETAL: No edema. CRANIAL NERVE SYSTEM: Awake, follows commands. Strength intact, sensory intact. PSYCHIATRIC: Mood appears normal at this time. GENITOURINARY: no ricardo, no suprapubic or inguinal tenderness. LABORATORY DATA: At the time of H&P performed; white count 14, hemoglobin 11.6 , platelet count is 271. BMP; sodium 130, potassium 2.8, chloride 94, CO2 27, BUN of 13, creatinine 1.64, glucose 198, calcium 10. UA; specific gravity 1.016. ASSESSMENT AND PLAN: The patient is a 76-year-old female. 1. Acute diverticulitis. CT abdomen done in the ER showed positive for acute left colonic diverticulitis. Plan to keep patient n.p.o. Plan to consult GI and General Surgery to evaluate the patient. Plan to start the patient on IV antibiotics. Plan to monitor the patient closely. 2. Pain, p.r.n. pain medications. 3. Hypertension, monitor blood. Blood pressure medications. 4. History of Sjogren's syndrome. Continue home medications. 5. History of hyperlipidemia. Continue statins. 6. History of hyperthyroidism. Continue levothyroxine. The case was discussed in detail with the patient. ANISA
[2017-05-08] MEDS: Heparin 5,000 UNITS/ML VIAL SC SCH ×3 (09:15→20:59)
[2017-05-08] MEDS: cloNIDine 0.3 MG TAB PO SCH ×3 (09:42→20:58)
--- NOTE | 2017-05-08 12:35 | HP ---
HISTORY OF PRESENT ILLNESS: Arabella Carrera is a 76-year-old female admitted to [facility] f or left lower quadrant pain. She had a CAT scan of the abdomen and pelvis that demonstrated changes of diverticulitis without abscess. She had a white count of 14 on admission, 9.8 this morning, hemog lobin 11.6 on admission, normal this morning. Basic metabolic profile was normal. The patient has comorbidities of steroid used for Sjogren syndrome and wants to avoid surgery. She h as had frequent admissions for diverticulitis. Has had earlier this year colonoscopy and upper endos copy with removal of inflammatory polyps and tubular adenomas. She lives alone, is ambulatory with a walker and has home health visiting her several times a week to help her with daily affairs. The patient is mentally alert and conversive. ALLERGIES: AMLODIPINE. TOBACCO: None. ALCOHOL: None. MEDICATIONS: Inderal 60 mg t.i.d., aspirin 81 mg daily, Thyroid 60 mg daily, spironolactone 12.5 mg b.i.d., BuSpar 5 mg daily, Medrol 4 mg p.o. daily, clonidine 0.3 mg t.i.d., hydralazine 50 mg p.o. t. i.d. PAST MEDICAL HISTORY: Sjogren syndrome on steroids, hypertension, chronic atrial fibrillation, has h ad 2 ablations, had spoken with earlier this year about a cardiac stress test, but they did not do it. She saw as an outpatient in the last few weeks. A TIA while on anticoagulation and Watchman device placed in her atrium, hypertension, hyperlipidemia, frequent admissions for diver ticulitis. PAST SURGICAL HISTORY: Appendectomy, total abdominal hysterectomy over two operations, thyroidectomy for goiter, laparoscopic cholecystectomy, elbow bursa surgery, lumbar L3-4 surgery, thoracic spine s urgery, Watchman's device for TIA sustain on anticoagulation provided for atrial fibrillation, torres ry artery disease followed by on 01/30/2017, EGD and colonoscopy by Dr. Tello as noted shaggy vargas. REVIEW OF SYSTEMS: [place] otherwise noncontributory. PHYSICAL EXAMINATION: VITAL SIGNS: 143 pounds, 98.1 degrees, 150/73, respiratory rate 20. HEAD, EYES, EARS NOSE AND THROAT: Unremarkable. LUNGS: Clear to auscultation. CARDIAC: Regular rate and rhythm without murmur or gallop. ABDOMEN: Soft, tenderness in the left lower quadrant with guarding. EXTREMITIES: Unremarkable. ASSESSMENT AND PLAN: 1. Recurrent diverticulitis in a patient who on steroids for Sjogren syndrome with other comorbiditi es as listed above. The patient wishes to avoid an operation if she can, although having such freque nt episodes of diverticulitis. She has a risk of needing the colon resection. Should a colon resect ion would be done for diverticulitis, more than likely colorectal anastomosis with a protective diver ting ileostomy would be in order due to her comorbidities, chronic steroid use, etc. I will follow t he patient along with you, but at this point she does not want an operation, but this should be consi dered due to her frequent admissions 2. Coronary artery disease. 3. Atrial fibrillation. 4. Diabetes mellitus. 5. Hypertension. 6. Watchman procedure for TIA sustained while on anticoagulation for atrial fibrillation. 7. Atrial fibrillation, on anticoagulation.
--- NOTE | 2017-05-08 12:45 | PDOC.PN ---
- Subjective Encounter Start Date: 05/08/17 Encounter Start Time: 12:43 Subjective: feels better.AP has improved.passing gas. -: no nausea/vomiting/fever/chills - Objective MAR Reviewed: Yes Vital Signs & Weight: Vital Signs (12 hours) Temp Pulse Resp BP BP Pulse Ox 05/08/17 11:35 98.3 F 66 20 137/66 99 05/08/17 09:42 152/73 H 05/08/17 08:40 98.1 F 68 20 152/73 H 98 05/08/17 07:45 98.1 F 68 20 98 05/08/17 02:09 97.9 F 65 14 98 I&O: 05/07/17 05/08/17 05/09/17 06:59 06:59 06:59 Intake Total 900 Balance 900 Result Diagrams: 05/08/17 04:51 05/08/17 04:51 Additional Labs: Laboratory Tests 05/07/17 05/08/17 16:49 04:51 WBC 14.0 H 9.8 Phys Exam - Physical Examination Constitutional: NAD pale,weak and tired looking HEENT: PERRLA, moist MMs, sclera anicteric, oral pharynx no lesions Neck: no nodes, no JVD, supple, full ROM Respiratory: no wheezing, no rales, no rhonchi, clear to auscultation bilateral Cardiovascular: RRR, no significant murmur Gastrointestinal: soft, no distention, positive bowel sounds TTp LLQ Musculoskeletal: no edema, pulses present Neurological: non-focal, normal sensation, moves all 4 limbs Psychiatric: normal affect, A&O x 3 Deviation from normal: multiple brusing of both arms Dx/Plan (1) Acute diverticulitis of intestine Code(s): K57.92 - DVTRCLI OF INTEST, PART UNSP, W/O PERF OR ABSCESS W/O BLEED Status: Acute (2) Chronic atrial fibrillation Code(s): I48.2 - CHRONIC ATRIAL FIBRILLATION Status: Chronic Comment: s/p Watchman device (3) Hyperlipidemia Code(s): E78.5 - HYPERLIPIDEMIA, UNSPECIFIED Status: Chronic (4) Hypertension Code(s): I10 - ESSENTIAL (PRIMARY) HYPERTENSION Status: Chronic Qualifiers: Hypertension type: essential hypertension Qualified Code(s): I10 - Essential (primary) hypertension (5) Sjogren's syndrome Code(s): M35.00 - SICCA SYNDROME, UNSPECIFIED Status: Chronic - Plan continue antibiotics, PT/OT, 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 -: recurrent diverticulitis.may need colectomy for frequent ,severe attacks. -: Pt wants to defer for now.Cont supportive care for now. -: Change IVF to D5 as she remians NPO. -: home meds ok .hemodynamically stable.OT,PT.Am labs * . Review of Systems - Review of Systems Constitutional: weakness, malaise Respiratory: negative: Cough, Dry, Shortness of Breath, Hemoptysis, SOB with Excertion, Pleuritic Pain, Sputum, Wheezing Cardiovascular: negative: chest pain, palpitations, orthopnea, paroxysmal nocturnal dyspnea, edema, light headedness, other Gastrointestinal: Abdominal Pain. negative: Nausea, Vomiting, Diarrhea, Constipation, Melena, Hematochezia, Other Genitourinary: negative: Dysuria, Frequency, Incontinence, Hematuria, Retention , Other Musculoskeletal: negative: Neck Pain, Shoulder Pain, Arm Pain, Back Pain, Hand Pain, Leg Pain, Foot Pain, Other Neurological: negative: Weakness, Numbness, Incoordination, Change in Speech, Confusion, Seizures, Other - Medications/Allergies Allergies/Adverse Reactions: Allergies Allergy/AdvReac Type Severity Reaction Status Date / Time amlodipine Allergy "swelled Verified 01/12/17 02:34 in feet and legs" Medications: Current Medications Acetaminophen (Tylenol) 650 mg PO Q4H PRN PRN Reason: Headache/Fever or Pain Buspirone HCl (Buspar) 5 mg PO DAILY [facility] Clonidine (Catapres) 0.1 mg PO Q6H PRN PRN Reason: SBP GREATER THAN 160 Clonidine (Catapres) 0.3 mg PO TID [facility] Last Admin: 05/08/17 09:42 Dose: 0.3 mg Heparin Sodium (Porcine) (Heparin) 5,000 units SC TID [facility] Last Admin: 05/08/17 09:15 Dose: 5,000 units Hydralazine HCl (Apresoline) 5 mg SLOW IVP Q4H PRN PRN Reason: SBP Greater Than 170 Levofloxacin 750 mg/ Device 150 mls @ 100 mls/hr IVPB Q24HR [facility] Last Admin: 05/08/17 00:15 Dose: 150 mls Metronidazole 500 mg/ Device 100 mls @ 100 mls/hr IVPB Q8HR [facility] Last Admin: 05/08/17 06:18 Dose: 100 mls Sodium Chloride (Normal Saline 0.9%) 1,000 mls @ 100 mls/hr IV .Q10H [facility] Last Admin: 05/08/17 09:15 Dose: 1,000 mls Morphine Sulfate (Morphine) 2 mg SLOW IVP Q4H PRN PRN Reason: Mild-Moderate Pain (1-5) Last Admin: 05/08/17 01:00 Dose: 2 mg Ondansetron HCl (Zofran) 4 mg IVP Q6H PRN PRN Reason: Nausea/Vomiting Propranolol HCl (Inderal) 60 mg PO TID [facility] Spironolactone (Aldactone) 12.5 mg PO BID-[facility] Thyroid ([place] Thyroid) 60 mg PO 0600 [facility]
[2017-05-08] MEDS: Dextrose 5 %-0.45 % NaCl 1,000 ML IV SCH (13:38)
--- NOTE | 2017-05-08 14:18 | CON ---
DATE OF CONSULTATION: 05/08/2017 REFERRING PHYSICIAN: Dr. Zhou Amin from Hospitalist Service - Dr. Darrick Chua. REASON FOR CONSULTATION: Abdominal pain and findings of diverticulitis on CAT scan. HISTORY OF PRESENT ILLNESS: Ms. Arabella Carrera is a very pleasant 76-year-old female with acu te abdominal pain which began Monday night. The patient had some dinner on Monday night, was watchin g TV and suddenly around 8 p.m. had severe abdominal pain over the left lower quadrant, left lumbar a nguyễn. She had no nausea, no vomiting. She had no fever or chills. The patient had no urinary sympto ms. The patient decided not to come to the ER and also applied a heating pad. The next morning she woke up, Monday morning she does not feel like eating and she only took some Metamucil and some clear liquid diet. The heating pad did not help her abdominal pain. The patient came to the ER last night. In the ER, she had an abdominal CAT scan which showed finding s of diverticulosis. There is no free air or any fluid collection seen. The patient is n.p.o. on IV fluids, IV antibiotics. Her abdominal pain persists, but less intense than yesterday. The patient was hospitalized in 12/2016 and also in 01/2017 with abdominal pain, nausea, vomiting, and diarrhea. The patient was seen by Dr. Abiodun Tello in 01/2017. She had an EGD done in 01/2017 and was f ound to have hiatus hernia and mild gastritis. She had a colonoscopy at the same time revealing sigm oid diverticular disease and also multiple small polyps. The patient was advised to take high fiber diet, Metamucil. She had done well since the last admission 01/2017. Abdominal pain started yesterd ay. She said the pain is different from the pain that she had before. Before she had pain, she had nausea, vomiting, and diarrhea, but this time is pain and nothing else. She has no other relevant hi story. MEDICAL ILLNESSES: 1. Paroxysmal atrial fibrillation. 2. Hypertension. 3. Osteoarthritis. 4. Hypothyroidism. 5. Sjogren's syndrome. 6. Diastolic heart failure. 7. Non-ST elevation myocardial infarction in the past. 8. Transient ischemic attack. PAST SURGICAL HISTORY: 1. Status post right oophorectomy. 2. Ablation for atrial fibrillation x2. 3. Appendectomy. 4. Cholecystectomy. 5. Thyroidectomy. 6. Surgery for T11, L3-L4 spine. 7. Watchman procedure for atrial fibrillation. 8. She also has had endoscopy in 2017. FAMILY HISTORY: Hypertension and hyperlipidemia. SOCIAL HISTORY: The patient does not smoke or drink alcohol. MEDICATIONS: List reviewed. ALLERGIES: AMLODIPINE. REVIEW OF SYSTEMS: CONSTITUTIONAL: No fever, no chills, no weight loss, no other relevant history. RESPIRATORY: No history of chronic cough, hemoptysis, dyspnea. CARDIOVASCULAR: No chest pain, no palpitation, no exertional dyspnea, orthopnea or PND. GASTROINTESTINAL: Abdominal pain, no nausea, no vomiting, no diarrhea, no hematochezia. GENITOURINARY: No dysuria, hematuria or frequency of urination. MUSCULOSKELETAL: Unremarkable. NEURO/PSYCHIATRIC: Unremarkable. ENDOCRINE/HEMATOLOGICAL: No problem. PHYSICAL EXAMINATION: GENERAL: The patient appears very comfortable in no acute distress. She is awake, alert, oriented t o time, place and person. VITAL SIGNS: She is afebrile, temperature 98.1 degrees Fahrenheit, pulse 68, blood pressure is 152/7 3. HEENT: Conjunctivae clear. NECK: Supple. No adenitis or thyromegaly noted. CARDIOVASCULAR: First and second heart sounds normal. LUNGS: Clear to auscultation. ABDOMEN: Soft to palpate. Abdomen is nondistended. She is tender over the left lower quadrant, lef t lumbar area corresponding with left colon area. There is no rebound or guarding. Her bowel sounds are hyperactive. EXTREMITIES: No edema. LABORATORY: Shows WBC was 14,000 yesterday, dropping to 9800 today, hemoglobin 11.6, hematocrit 33.5 , MCV 94.2, platelet count 271,000, polymorphs 33, lymphocytes 11. Today, the blood count has droppe d down to 10.4, hematocrit 30.8 respectively. She has no bandemia. Chemistry panel shows a slightly low sodium at 133, potassium 3.6, chloride 99, bicarbonate 26, BUN is 10, creatinine 0.58, bilirubin 1.1, AST 11, ALT 13, alkaline phosphatase 154, troponin 0.013. Abdominal CAT scan shows findings of diverticulitis over the left lower quadrant, left colon area. There is no free air or any fluid col lection. CLINICAL IMPRESSION: 1. Acute diverticulitis without any peritoneal signs. The patient had similar episodes in the past and was hospitalized in January of 2017. At that time, she was seen by Dr. Tello and had a colono scopy and EGD. She did have diverticular disease, but no diverticulitis at that time. She has multi ple small gallstones. An EGD at that time revealed no pathology. RECOMMENDATIONS: 1. N.p.o. 2. Analgesics. 3. IV fluids. 4. Continue IV antibiotics. 6. Dr. Pedro Tello will be back and he will assume care from tomorrow.
[2017-05-08] MEDS: PROPRANOLOL HCL 60 MG PO SCH ×2 (14:40→20:59)
[2017-05-08] MEDS: Spironolactone 25 MG TAB PO SCH ×2 (17:39→17:40)
[2017-05-08] MEDS: Acetaminophen 325 MG TAB PO PRN (20:59)
[2017-05-09] MEDS: Acetaminophen 325 MG TAB PO PRN (02:36)
[2017-05-09] MEDS: Dextrose 5 %-0.45 % NaCl 1,000 ML IV SCH (02:38)
[2017-05-09] MEDS: metroNIDAZOLE 500 MG in Premix Bag 1 BAG IVPB SCH ×2 (05:17→18:12)
[2017-05-09 06:36] LABS: Anion Gap 10 mmol/L (10-20); BUN (Urea Nitrogen) 7 mg/dL (9.8-20.1); Calc. Creatinine Clearance 75 mL/min (70-130); Calcium 8.6 mg/dL (7.8-10.44); Carbon Dioxide 26 mmol/L (23-31); Chloride 101 mmol/L (98-107); Estimated GFR-MDRD 87; Glucose 103 mg/dL (83-110); Magnesium 1.4 mg/dL (1.6-2.6); Potassium 3.2 mmol/L (3.5-5.1); Sodium 134 mmol/L (136-145)
[2017-05-09] MEDS: Spironolactone 25 MG TAB PO SCH ×2 (07:43→18:13)
[2017-05-09] MEDS: cloNIDine 0.3 MG TAB PO SCH ×3 (07:43→20:51)
[2017-05-09] MEDS: busPIRone HCl 5 MG TAB PO SCH (07:45)
[2017-05-09] MEDS: Heparin 5,000 UNITS/ML VIAL SC SCH ×3 (07:46→20:56)
[2017-05-09] MEDS: PROPRANOLOL HCL 60 MG PO SCH ×3 (07:46→20:52)
[2017-05-09] MEDS ORDERED: Potassium ACETATE 40 MEQ/20 ML VIAL IV SCH (10:00)
--- NOTE | 2017-05-09 10:07 | PRG ---
DATE OF SERVICE: 05/09/2017 Arabella Carrera is doing better today. She has passed a stool and feels better. PHYSICAL EXAMINATION: LUNGS: Clear to auscultation. CARDIAC: Regular rate and rhythm without murmur or gallop. ABDOMEN: Soft, tenderness with significant guarding left lower quadrant. VITAL SIGNS: Temperature 98.2 degrees, 65, 183/80. CBC was not obtained today. Basic metabolic profile is unremarkable with potassium of 3.2. ASSESSMENT AND PLAN: Low magnesium and low potassium. We will replace parenteral. The patient's pa in is remarkably improved, although her tenderness persists. We will begin clear liquids today. She needs increased mobility and this was discussed with her.
[2017-05-09] MEDS ORDERED: Magnesium 2 GM/NS 0.9% 100 ML 2 GM in Premix Bag 1 BAG IVPB SCH (10:30)
[2017-05-09] MEDS ORDERED: SODIUM CHLORIDE 0.9% IV SCH (11:00)
[2017-05-09] MEDS ORDERED: POTASSIUM ACETATE IV SCH (11:00)
--- NOTE | 2017-05-09 12:38 | PDOC.PN ---
- Subjective Encounter Start Date: 05/09/17 Encounter Start Time: 12:36 -: non-verbal, old records requested/rev Subjective: Pt seen and examnied for Diveticulitis of Intestine -: Pt denies any Nausea, Vomitig , diarrhea , Fever, Bleeding per rectum - Objective MAR Reviewed: Yes Vital Signs & Weight: Vital Signs (12 hours) Temp Pulse Resp BP BP Pulse Ox 05/09/17 08:00 98.2 F 65 18 183/80 H 98 05/09/17 07:43 183/80 H 05/09/17 04:36 97.8 F 68 18 160/69 H 98 I&O: 05/08/17 05/09/17 05/10/17 06:59 06:59 06:59 Intake Total 3375 Balance 3375 Result Diagrams: 05/08/17 04:51 05/09/17 04:55 Radiology Reviewed by me: Yes Phys Exam - Physical Examination HEENT: PERRLA, moist MMs, sclera anicteric, TM's clear, oral pharynx no lesions , 2+ tonsils Neck: no nodes, no JVD, supple, full ROM Respiratory: no wheezing, no rales, no rhonchi, wheezing present, clear to auscultation bilateral Cardiovascular: RRR, no significant murmur, no rub, gallop, irregular Gastrointestinal: soft, non-tender (tender LLQ), no distention, positive bowel sounds Musculoskeletal: no edema, pulses present, edema present Neurological: non-focal, normal sensation, moves all 4 limbs Psychiatric: normal affect, A&O x 3 Skin: no rash, normal turgor, cap refill <2 seconds Dx/Plan (1) Chronic atrial fibrillation Code(s): I48.2 - CHRONIC ATRIAL FIBRILLATION Status: Chronic Comment: s/p Watchman device (2) Paroxysmal SVT (supraventricular tachycardia) Code(s): I47.1 - SUPRAVENTRICULAR TACHYCARDIA Status: Chronic (3) Hyperlipidemia Code(s): E78.5 - HYPERLIPIDEMIA, UNSPECIFIED Status: Chronic Qualifiers: Hyperlipidemia type: pure hypercholesterolemia Qualified Code(s): E78.00 - Pure hypercholesterolemia, unspecified; E78.0 - Pure hypercholesterolemia (4) Hypertension Code(s): I10 - ESSENTIAL (PRIMARY) HYPERTENSION Status: Chronic Qualifiers: Hypertension type: essential hypertension Qualified Code(s): I10 - Essential (primary) hypertension - Plan continue antibiotics, DVT proph w/heparin Continue Levquin and IV Flagyl -: Clear Liquid diet as tolerated -: Acitivity as tolerated -: Hypokalemia sheila Replace * .
[2017-05-09] MEDS ORDERED: HYDROcodone/Acetaminophen 5/325 mg Tablet PO PRN (14:39)
[2017-05-09] MEDS: HYDROcodone/Acetaminophen 5/325 mg Tablet PO PRN ×2 (14:53→20:52)
[2017-05-09] MEDS: Potassium Chloride 40 MEQ in Sodium Chloride 0.45% 1,000 ML IV SCH ×2 (18:13→21:53)
[2017-05-09] MEDS: Ondansetron HCl/PF 4 MG/2 ML Vial IVP PRN (21:53)
[2017-05-10] MEDS ORDERED: Promethazine HCl 25 MG in Sodium Chloride 0.9% 50 ML IVPB PRN (00:28)
[2017-05-10] MEDS: metroNIDAZOLE 500 MG in Premix Bag 1 BAG IVPB SCH ×2 (01:45→10:22)
--- NOTE | 2017-05-10 03:18 | PRG ---
DATE OF SERVICE: 05/09/2017 SUBJECTIVE: Ms. Carrera is without complaints. OBJECTIVE: VITAL SIGNS: Temperature is 98.2, blood pressure 153/74. ABDOMEN: Soft, nontender. LABORATORY: Today, sodium 134, potassium 3.2, BUN and creatinine are 7 and 0.66. ASSESSMENT: Diverticulitis without complications, these have been recurrent episodes; however, she i s a poor surgical candidate, on chronic steroids for Sjogren's. RECOMMENDATIONS: After resolution of acute bout, could consider institute a trial of Lialda or [place] l. Some studies have indicated benefit in preventing recurrent diverticular disease, although others have not. In light of the fact of her being a poor surgical candidate and her not wanting surgery, I do not think it would hurt to try this.
[2017-05-10 05:04] LABS: #Basophils 0.1 thou/uL (0.0-0.2); #Eosinphils 0.4 thou/uL (0.0-0.7); #Lymphocytes 2.7 thou/uL (1.20-3.40); #Monocytes 0.7 thou/uL (0.11-0.59); #Neutrophils 6.1 thou/uL (1.40-6.50); %Basophils 0.6 % (0.0-1.0); %Eosinophils 4.1 % (0.0-10.0); %Lymphocytes 27.5 % (21.0-51.0); %Monocytes 6.7 % (0.0-10.0); %Neutrophils 61.1 % (42.0-75.0); Hemoglobin 11.7 g/dL (12.0-16.0); Mean Corpuscular HGB CONC 33.5 g/dL (32.0-36.0); Mean Corpuscular Hemoglobin 31.9 pg (27.0-31.0); Mean Corpuscular Volume 95.2 fl (81.0-99.0); Mean Platelet Volume 6.7 fL (7.4-10.4); Platelet Count 304 thou/uL (130-400); RBC Distribution Width 13.9 % (11.5-14.5); Red Blood Cell (RBC) Count 3.67 mill/uL (4.20-5.40); White Blood Cell (WBC) Count 9.9 thou/uL (4.8-10.8)
[2017-05-10] MEDS: Ondansetron HCl/PF 4 MG/2 ML Vial IVP PRN ×2 (05:50→14:30)
[2017-05-10 05:51] LABS: Anion Gap 11 mmol/L (10-20); BUN (Urea Nitrogen) 6 mg/dL (9.8-20.1); Calc. Creatinine Clearance 77 mL/min (70-130); Calcium 8.7 mg/dL (7.8-10.44); Carbon Dioxide 25 mmol/L (23-31); Chloride 101 mmol/L (98-107); Estimated GFR-MDRD 90; Glucose 102 mg/dL (83-110); Potassium 3.9 mmol/L (3.5-5.1); Sodium 133 mmol/L (136-145)
[2017-05-10] MEDS: Spironolactone 25 MG TAB PO SCH ×2 (08:01→17:16)
[2017-05-10] MEDS: Heparin 5,000 UNITS/ML VIAL SC SCH ×3 (08:01→20:32)
[2017-05-10] MEDS: cloNIDine 0.3 MG TAB PO SCH ×3 (08:01→20:32)
[2017-05-10] MEDS: busPIRone HCl 5 MG TAB PO SCH (08:01)
[2017-05-10] MEDS: Potassium Chloride 40 MEQ in Sodium Chloride 0.45% 1,000 ML IV SCH ×2 (08:05→17:16)
[2017-05-10] MEDS: PROPRANOLOL HCL 60 MG PO SCH ×3 (08:05→20:40)
--- NOTE | 2017-05-10 13:02 | PDOC.PN ---
- Subjective Encounter Start Date: 05/10/17 Encounter Start Time: 13:01 Subjective: Pt seen and examined for Acute Diverticultis -: Pt still C/o Pain LLQ -: tolerating liquid diet - Objective MAR Reviewed: Yes Vital Signs & Weight: Vital Signs (12 hours) Temp Pulse Resp BP BP Pulse Ox 05/10/17 08:50 98.2 F 70 14 184/73 H 97 05/10/17 08:35 98.2 F 70 14 97 05/10/17 08:01 184/73 H 05/10/17 04:47 98.2 F 64 16 138/57 L 92 L I&O: 05/09/17 05/10/17 05/11/17 06:59 06:59 06:59 Intake Total 3375 1450 Balance 3375 1450 Result Diagrams: 05/10/17 04:31 05/10/17 04:31 Phys Exam - Physical Examination HEENT: PERRLA, moist MMs, sclera anicteric, TM's clear, oral pharynx no lesions , 2+ tonsils Neck: no nodes, no JVD, supple, full ROM Respiratory: no wheezing, no rales, no rhonchi, wheezing present, clear to auscultation bilateral Cardiovascular: RRR, no significant murmur, no rub, gallop, irregular Gastrointestinal: soft, no distention, positive bowel sounds Tenderness LLQ Musculoskeletal: no edema, pulses present, edema present Neurological: non-focal, normal sensation, moves all 4 limbs Psychiatric: normal affect, A&O x 3 Skin: no rash, normal turgor, cap refill <2 seconds Dx/Plan (1) Chronic atrial fibrillation Code(s): I48.2 - CHRONIC ATRIAL FIBRILLATION Status: Chronic Comment: s/p Watchman device (2) Paroxysmal SVT (supraventricular tachycardia) Code(s): I47.1 - SUPRAVENTRICULAR TACHYCARDIA Status: Chronic (3) Hyperlipidemia Code(s): E78.5 - HYPERLIPIDEMIA, UNSPECIFIED Status: Chronic Qualifiers: Hyperlipidemia type: pure hypercholesterolemia Qualified Code(s): E78.00 - Pure hypercholesterolemia, unspecified; E78.0 - Pure hypercholesterolemia (4) Hypertension Code(s): I10 - ESSENTIAL (PRIMARY) HYPERTENSION Status: Chronic Qualifiers: Hypertension type: essential hypertension Qualified Code(s): I10 - Essential (primary) hypertension - Plan Continue IV Fluids, IV Levaquin, IV Flagyl -: Diet Advance as tolerated -: restart her daily dose steroids for Sjogren syndrom * . Review of Systems - Review of Systems Constitutional: negative: fever, chills, sweats, weakness, malaise, other Respiratory: negative: Cough, Dry, Shortness of Breath, Hemoptysis, SOB with Excertion, Pleuritic Pain, Sputum, Wheezing Cardiovascular: negative: chest pain, palpitations, orthopnea, paroxysmal nocturnal dyspnea, edema, light headedness, other Gastrointestinal: Nausea, Abdominal Pain Genitourinary: negative: Dysuria, Frequency, Incontinence, Hematuria, Retention , Other - Medications/Allergies Allergies/Adverse Reactions: Allergies Allergy/AdvReac Type Severity Reaction Status Date / Time amlodipine Allergy "swelled Verified 01/12/17 02:34 in feet and legs" Medications: Current Medications Acetaminophen (Tylenol) 650 mg PO Q4H PRN PRN Reason: Headache/Fever or Pain Last Admin: 05/09/17 02:36 Dose: 650 mg Hydrocodone Bitart/Acetaminophen (Mosca 5/325) 1 tab PO Q6H PRN PRN Reason: Moderate Pain (4-6) Hydrocodone Bitart/Acetaminophen (Mosca 5/325) 2 tab PO Q6H PRN PRN Reason: Severe Pain (7-10) Last Admin: 05/09/17 20:52 Dose: 2 tab Aspirin (Ecotrin) 81 mg PO DAILY [facility] Buspirone HCl (Buspar) 5 mg PO DAILY [facility] Last Admin: 05/10/17 08:01 Dose: 5 mg Clonidine (Catapres) 0.1 mg PO Q6H PRN PRN Reason: SBP GREATER THAN 160 Clonidine (Catapres) 0.3 mg PO TID [facility] Last Admin: 05/10/17 08:01 Dose: 0.3 mg Heparin Sodium (Porcine) (Heparin) 5,000 units SC TID [facility] Last Admin: 05/10/17 08:01 Dose: 5,000 units Hydralazine HCl (Apresoline) 5 mg SLOW IVP Q4H PRN PRN Reason: SBP Greater Than 170 Levofloxacin 750 mg/ Device 150 mls @ 100 mls/hr IVPB Q24HR [facility] Last Admin: 05/09/17 22:02 Dose: 150 mls Potassium Chloride 40 meq/ (Sodium Chloride) 1,020 mls @ 100 mls/hr IV .[id number] [facility] Last Admin: 05/10/17 08:05 Dose: 1,020 mls Metronidazole 500 mg/ Device 100 mls @ 100 mls/hr IVPB 0200,1000,1800 [facility] Last Admin: 05/10/17 10:22 Dose: 100 mls Promethazine HCl 25 mg/ Sodium (Chloride) 51 mls @ 204 mls/hr IVPB Q8H PRN PRN Reason: Nausea Last Admin: 05/10/17 01:42 Dose: 51 mls Methylprednisolone (Medrol) 4 mg PO DAILY [facility] Morphine Sulfate (Morphine) 2 mg SLOW IVP Q4H PRN PRN Reason: Mild-Moderate Pain (1-5) Last Admin: 05/08/17 19:50 Dose: 2 mg Non-Formulary Medication (Hydralazine Hcl [Hydralazine Hcl]) 50 mg PO TID [facility] Ondansetron HCl (Zofran) 4 mg IVP Q6H PRN PRN Reason: Nausea/Vomiting Last Admin: 05/10/17 05:50 Dose: 4 mg Promethazine HCl (Phenergan) 25 mg PO Q8H PRN PRN Reason: Nausea Propranolol HCl (Inderal) 60 mg PO TID [facility] Last Admin: 05/10/17 08:05 Dose: 60 mg Spironolactone (Aldactone) 12.5 mg PO BID[facility] Last Admin: 05/10/17 08:01 Dose: 12.5 mg Thyroid ([place] Thyroid) 60 mg PO 0600 [facility] Last Admin: 05/10/17 05:38 Dose: 60 mg
[2017-05-10] MEDS ORDERED: methylPREDNISolone 4 mg Tablet PO SCH (13:30)
[2017-05-10] MEDS: hydrALAZINE 25 MG TAB PO SCH ×2 (14:31→20:32)
[2017-05-10] MEDS ORDERED: Morphine 4 MG/ML VIAL SLOW IVP PRN (16:45)
[2017-05-10] MEDS: Ketorolac Tromethamine 30 MG/ML VIAL IVP SCH (17:16)
[2017-05-10] MEDS: Acetaminophen 1,000 MG in Premix Bag 1 BAG IVPB SCH (17:17)
[2017-05-10] MEDS: Piperacillin/Tazobactam 4.5 GM in Sodium Chloride 0.9% 100 ML IVPB SCH (18:03)
--- NOTE | 2017-05-10 18:04 | PRG ---
DATE OF SERVICE: 05/10/2017 Ms. Carrera is having increased pain in left lower quadrant. She is not hardly taking anything orally. Dr. Tello has seen her and started other treatments to hopefully help her avoid surgery. OBJECTIVE: VITAL SIGNS: 99.1 degrees, 157/55, heart rate 72. LUNGS: Clear to auscultation. CARDIAC: Rhythm without murmur or gallop. ABDOMEN: Soft, tenderness with guarding and rebound left lower quadrant. Otherwise, abdomen is soft with mild tenderness elsewhere. LABORATORY DATA: White count 9, hemoglobin 11. Basic metabolic profile is unremarkable. ASSESSMENT AND PLAN: Diverticulitis. She seems to have worsened. We will make her n.p.o. except fo r ice chips and continue intravenous antibiotics. Surgical intervention may be necessary if this arzola s not improve. She is on Medrol 4 mg a day and if surgical intervention is necessary, she probably w ill need a sigmoid resection and protective diverting ileostomy due to the acute inflammation and sanju roid use. We will observe her in the next day or two and see how she responds.
--- NOTE | 2017-05-10 22:11 | PRG ---
DATE OF SERVICE: 05/10/2017 SUBJECTIVE: Ms. Carrera states she still feels quite a bit of discomfort on the left side. She has no fever or chills. She is taking just little bit sips of water. MEDICATIONS: She continues on Flagyl and Levaquin. PHYSICAL EXAMINATION: VITAL SIGNS: Temperature is 99, blood pressure 137/55. LUNGS: Clear. HEART: Regular rate and rhythm without clicks or murmurs. ABDOMEN: Soft. There is some voluntary guarding and tenderness in left lower quadrant. LABORATORY DATA: Today, white count is 9.9, hemoglobin 12.7, platelet count 304. Sodium 133, BUN an d creatinine are 6 and 0.6, potassium is 3.9. ASSESSMENT: 1. Renal insufficiency with chronic steroid use. 2. Recurrent diverticulitis, still with pain, but no overt high fever and no signs of sepsis. She h ad no abscess on CT or perforation. RECOMMENDATIONS: Continue present management and if she shows signs of decompensation, could try to reimage. We will wait for a few days and start some Lialda if she improves and gets beyond this acut e episode. Sometimes can be used to help prevent recurrent disease.
[2017-05-11] MEDS: Ketorolac Tromethamine 30 MG/ML VIAL IVP SCH ×5 (00:21→23:24)
[2017-05-11] MEDS: Acetaminophen 1,000 MG in Premix Bag 1 BAG IVPB SCH ×4 (00:23→17:21)
[2017-05-11] MEDS: Piperacillin/Tazobactam 4.5 GM in Sodium Chloride 0.9% 100 ML IVPB SCH ×5 (00:25→23:14)
[2017-05-11] MEDS: Potassium Chloride 40 MEQ in Sodium Chloride 0.45% 1,000 ML IV SCH ×3 (03:22→17:21)
[2017-05-11] MEDS: Ondansetron HCl/PF 4 MG/2 ML Vial IVP PRN (03:25)
[2017-05-11] MEDS: hydrALAZINE 25 MG TAB PO SCH ×3 (08:23→21:12)
[2017-05-11] MEDS: cloNIDine 0.3 MG TAB PO SCH ×3 (08:23→21:12)
[2017-05-11] MEDS: busPIRone HCl 5 MG TAB PO SCH (08:23)
[2017-05-11] MEDS: Spironolactone 25 MG TAB PO SCH ×2 (08:23→17:22)
[2017-05-11] MEDS: Aspirin 81 mg Enteric Coated Tablet PO SCH (08:23)
[2017-05-11] MEDS: Heparin 5,000 UNITS/ML VIAL SC SCH ×3 (08:24→21:12)
[2017-05-11] MEDS: PROPRANOLOL HCL 60 MG PO SCH ×3 (08:24→21:13)
[2017-05-11] MEDS: methylPREDNISolone 4 mg Tablet PO SCH (11:34)
[2017-05-11] MEDS: Mag-Al 1200 mg/1200 mg/30 ML UDCUP PO PRN (16:11)
--- NOTE | 2017-05-11 18:15 | PDOC.PN ---
- Subjective Encounter Start Date: 05/11/17 Encounter Start Time: 18:13 Subjective: Seen and examined with no new complaint - Objective Vital Signs & Weight: Vital Signs (12 hours) Temp Pulse Resp BP BP Pulse Ox 05/11/17 16:52 98.3 F 68 16 151/79 H 96 05/11/17 15:24 67 193/83 H 05/11/17 15:23 193/83 H 05/11/17 12:00 98.3 F 67 16 171/71 H 97 05/11/17 08:39 98.5 F 77 16 98 05/11/17 08:23 77 166/50 H 05/11/17 08:00 98.5 F 77 16 166/50 H 98 I&O: 05/10/17 05/11/17 05/12/17 06:59 06:59 06:59 Intake Total 1450 1300 Balance 1450 1300 Result Diagrams: 05/10/17 04:31 05/10/17 04:31 Phys Exam - Physical Examination Constitutional: NAD HEENT: PERRLA, moist MMs, sclera anicteric, TM's clear Neck: no nodes, no JVD, supple, full ROM Respiratory: no wheezing, no rales, no rhonchi, clear to auscultation bilateral Cardiovascular: RRR, no significant murmur, no rub Gastrointestinal: soft, positive bowel sounds Musculoskeletal: no edema, pulses present Dx/Plan (1) Acute diverticulitis of intestine Code(s): K57.92 - DVTRCLI OF INTEST, PART UNSP, W/O PERF OR ABSCESS W/O BLEED Status: Acute (2) Chronic atrial fibrillation Code(s): I48.2 - CHRONIC ATRIAL FIBRILLATION Status: Chronic Comment: s/p Watchman device (3) NSTEMI (non-ST elevated myocardial infarction) Code(s): I21.4 - NON-ST ELEVATION (NSTEMI) MYOCARDIAL INFARCTION Status: Acute (4) Afib Code(s): I48.91 - UNSPECIFIED ATRIAL FIBRILLATION Status: Chronic Qualifiers: Atrial fibrillation type: paroxysmal Qualified Code(s): I48.0 - Paroxysmal atrial fibrillation (5) Hyperlipidemia Code(s): E78.5 - HYPERLIPIDEMIA, UNSPECIFIED Status: Chronic Qualifiers: Hyperlipidemia type: pure hypercholesterolemia Qualified Code(s): E78.00 - Pure hypercholesterolemia, unspecified; E78.0 - Pure hypercholesterolemia (6) Hypertension Code(s): I10 - ESSENTIAL (PRIMARY) HYPERTENSION Status: Chronic Qualifiers: Hypertension type: essential hypertension Qualified Code(s): I10 - Essential (primary) hypertension (7) Paroxysmal SVT (supraventricular tachycardia) Code(s): I47.1 - SUPRAVENTRICULAR TACHYCARDIA Status: Chronic (8) Sjogren's syndrome Code(s): M35.00 - SICCA SYNDROME, UNSPECIFIED Status: Chronic - Plan plan discussed w/ family, continue antibiotics, PT/OT, hospital social worker Currently on conservative medical management- -: If no significant improvement will undergo colectomy per surgery -: Gen.surgery and GI input appreciated * .
[2017-05-11] MEDS ORDERED: Ondansetron HCl/PF 4 MG/2 ML Vial IVP PRN (18:22)
[2017-05-11] MEDS ORDERED: Morphine 4 MG/ML VIAL SLOW IVP PRN (18:22)
[2017-05-11] MEDS ORDERED: Morphine 2 MG/ML SYRINGE SLOW IVP PRN (18:22)
--- NOTE | 2017-05-11 18:36 | PRG ---
DATE OF SERVICE: 05/11/2017 SUBJECTIVE: Arabella Carrera is doing better today. OBJECTIVE: GENERAL: She is afebrile. She reports less pain. She feels better since she has walked. LUNGS: Clear to auscultation. CARDIAC: Rhythm. ABDOMEN: Soft. Minimal tenderness in left lower quadrant. Bowel sounds present. ASSESSMENT AND PLAN: Improved diverticulitis since switching to Zosyn and resorting back to clear li quids, back to n.p.o. status, we will begin clear liquids again. As the patient does not want surger y, I will sign off at this time. I would recommend advancing her diet slowly to a low fiber diet. I will be out of town the next week. Dr. Johnson will be covering. Please call him if surgical service s are necessary. Patient can follow up with me as an outpatient in the next few weeks or if she has a recurrence of her diverticulitis I can see her as an outpatient. Please call if needed.
--- NOTE | 2017-05-11 22:17 | PRG ---
DATE OF SERVICE: 05/11/2017 Ms. Carrera is without complaints. She is feeling much better in terms of lower abdominal pain. Her F lagyl and Levaquin were stopped as she was placed on Zosyn. She did try some Toradol, but had a lot of epigastric pain, does not want to take it anymore. PRESENT MEDICATIONS: Subq heparin, Zofran, Medrol and Toradol which is on hold, Zosyn, Aldactone, Sy nthroid. She is on 4 mg oral prednisone daily. PHYSICAL EXAMINATION: VITAL SIGNS: Temperature 98, pulse 68 , blood pressure 151/79. LUNGS: Clear. HEART: Regular rate and rhythm without clicks or murmurs. ABDOMEN: Soft, nontender. LABORATORY DATA: No labs today. ASSESSMENT: Diverticulitis, improving. I think she has had a lot of improvement with stopping the F lagyl, starting Zosyn and hopefully we can switch to p.o. in the next couple of days and get her home . She is on clear liquid diet again and she was advanced to full liquids tomorrow, which I think is quite reasonable.
[2017-05-12] MEDS: Mag-Al 1200 mg/1200 mg/30 ML UDCUP PO PRN ×2 (00:07→13:25)
[2017-05-12] MEDS: Ondansetron HCl/PF 4 MG/2 ML Vial IVP PRN ×2 (00:09→16:01)
[2017-05-12] MEDS: Potassium Chloride 40 MEQ in Sodium Chloride 0.45% 1,000 ML IV SCH ×3 (01:47→20:36)
[2017-05-12] MEDS: Piperacillin/Tazobactam 4.5 GM in Sodium Chloride 0.9% 100 ML IVPB SCH ×2 (05:33→12:14)
[2017-05-12] MEDS: Ketorolac Tromethamine 30 MG/ML VIAL IVP SCH ×4 (05:35→23:17)
[2017-05-12] MEDS: cloNIDine 0.3 MG TAB PO SCH ×3 (06:37→20:37)
[2017-05-12] MEDS: PROPRANOLOL HCL 60 MG PO SCH ×3 (06:37→20:39)
[2017-05-12] MEDS: Heparin 5,000 UNITS/ML VIAL SC SCH ×3 (08:25→20:37)
[2017-05-12] MEDS: busPIRone HCl 5 MG TAB PO SCH (08:26)
[2017-05-12] MEDS: Spironolactone 25 MG TAB PO SCH ×2 (08:26→17:58)
[2017-05-12] MEDS: Aspirin 81 mg Enteric Coated Tablet PO SCH (08:26)
[2017-05-12] MEDS: hydrALAZINE 25 MG TAB PO SCH ×3 (08:26→20:39)
[2017-05-12] MEDS: methylPREDNISolone 4 mg Tablet PO SCH (09:41)
[2017-05-12] MEDS: Acetaminophen 325 MG TAB PO PRN ×2 (12:17→23:20)
[2017-05-12] MEDS: metroNIDAZOLE 250 MG TAB PO SCH ×2 (16:01→20:47)
--- NOTE | 2017-05-13 00:44 | PRG ---
DATE: 05/12/2017 HISTORY OF PRESENT ILLNESS: Ms. Carrera has no further abdominal pain. She does complain of diarrhea. She thinks it is from the [facility]. PHYSICAL EXAMINATION: VITAL SIGNS: Temperature is 97, pulse 96, blood pressure 128/73. ABDOMEN: Soft, nontender. SKIN: Frail. ASSESSMENT: 1. Steroid dependence. 2. Recurrent diverticulitis. A recent colonoscopy, last admission, showed some polyps, diverticulos is coli without any evidence of acute or chronic changes. RECOMMENDATIONS: I think she will be switched to oral antibiotics. I think she can be changed to or al Levaquin and Flagyl to complete a 10-day course of antibiotics. She has had 5 so far. We will ch efren a Clostridium difficile on her. She is having diarrhea. We will advance her diet. She should b e able to go home tomorrow with those changes. Dr. Pham will be covering over the weekend if needed .
[2017-05-13] MEDS: Potassium Chloride 40 MEQ in Sodium Chloride 0.45% 1,000 ML IV SCH ×3 (02:07→17:09)
[2017-05-13] MEDS: Ketorolac Tromethamine 30 MG/ML VIAL IVP SCH ×3 (05:17→17:09)
[2017-05-13] MEDS: cloNIDine 0.1 MG TAB PO PRN (05:17)
[2017-05-13] MEDS: metroNIDAZOLE 250 MG TAB PO SCH ×3 (11:00→20:56)
[2017-05-13] MEDS: PROPRANOLOL HCL 60 MG PO SCH ×3 (11:26→20:56)
[2017-05-13] MEDS: Aspirin 81 mg Enteric Coated Tablet PO SCH (11:27)
[2017-05-13] MEDS: hydrALAZINE 25 MG TAB PO SCH ×3 (11:27→20:56)
[2017-05-13] MEDS: methylPREDNISolone 4 mg Tablet PO SCH (11:27)
[2017-05-13] MEDS: cloNIDine 0.3 MG TAB PO SCH ×3 (11:27→20:55)
[2017-05-13] MEDS: busPIRone HCl 5 MG TAB PO SCH (11:28)
[2017-05-13] MEDS: Heparin 5,000 UNITS/ML VIAL SC SCH ×3 (11:28→21:02)
[2017-05-13] MEDS: Spironolactone 25 MG TAB PO SCH ×2 (11:29→16:14)
--- NOTE | 2017-05-13 14:07 | PDOC.PN ---
- Subjective Encounter Start Date: 05/13/17 Encounter Start Time: 14:05 Patient seen and examined. No new complaints. No overnight events. pt weak and wants to have rehab. diarhea better. c/o abd pain. - Objective MAR Reviewed: Yes Vital Signs & Weight: Vital Signs (12 hours) Temp Pulse Resp BP BP Pulse Ox 05/13/17 12:08 97.5 F L 66 16 186/93 H 98 05/13/17 11:27 68 184/69 H 05/13/17 08:33 97.9 F 68 14 184/69 H 96 05/13/17 05:17 166/76 H 05/13/17 04:00 97.7 F 65 18 166/76 H 97 I&O: 05/12/17 05/13/17 05/14/17 06:59 06:59 06:59 Intake Total 1480 2850 Balance 1480 2850 Result Diagrams: 05/10/17 04:31 05/10/17 04:31 Phys Exam - Physical Examination Constitutional: NAD HEENT: moist MMs, sclera anicteric Neck: supple Respiratory: no wheezing, no rales Cardiovascular: irregular Gastrointestinal: soft Musculoskeletal: no edema Neurological: non-focal, moves all 4 limbs Psychiatric: normal affect, A&O x 3 Skin: no rash Dx/Plan (1) Acute diverticulitis of intestine Code(s): K57.92 - DVTRCLI OF INTEST, PART UNSP, W/O PERF OR ABSCESS W/O BLEED Status: Acute (2) Chronic atrial fibrillation Code(s): I48.2 - CHRONIC ATRIAL FIBRILLATION Status: Chronic Comment: s/p Watchman device (3) NSTEMI (non-ST elevated myocardial infarction) Code(s): I21.4 - NON-ST ELEVATION (NSTEMI) MYOCARDIAL INFARCTION Status: Acute (4) Hyperlipidemia Code(s): E78.5 - HYPERLIPIDEMIA, UNSPECIFIED Status: Chronic Qualifiers: Hyperlipidemia type: pure hypercholesterolemia Qualified Code(s): E78.00 - Pure hypercholesterolemia, unspecified; E78.0 - Pure hypercholesterolemia (5) Hypertension Code(s): I10 - ESSENTIAL (PRIMARY) HYPERTENSION Status: Chronic Qualifiers: Hypertension type: essential hypertension Qualified Code(s): I10 - Essential (primary) hypertension (6) Sjogren's syndrome Code(s): M35.00 - SICCA SYNDROME, UNSPECIFIED Status: Chronic (7) Hypokalemia Code(s): E87.6 - HYPOKALEMIA Status: Resolved (8) Hypomagnesemia Code(s): E83.42 - HYPOMAGNESEMIA Status: Resolved - Plan cont current plan of care, continue antibiotics, PT/OT, licensed clinical social worker, DVT proph w/SCDs * . rehab screening continue po abx recheck labs in AM CM for DC planning.
[2017-05-13] MEDS: Acetaminophen 325 MG TAB PO PRN (17:39)
--- NOTE | 2017-05-13 21:08 | PRG ---
DATE OF SERVICE: 05/13/2017 SUBJECTIVE: Her abdominal pain is improving today. Her diarrhea was a little bit better as well. OBJECTIVE: VITAL SIGNS: Temperature 98.2, pulse 74, blood pressure 145/60. GENERAL: She is in no acute distress. She is awake and alert. LUNGS: Clear to auscultation bilaterally. HEART: Regular rate and rhythm. ABDOMEN: She has mild focal tenderness in the left lower quadrant. Bowel sounds are present. EXTREMITIES: No lower extremity edema. IMPRESSION: Recurrent diverticulitis. She is improved after changing to Zosyn IV. She is now back on metronidazole and Levaquin orally. She continues to improve with her pain. Her diarrhea worsened while on Zosyn and she feels like this is improving now again after switching back to oral antibioti cs. RECOMMENDATIONS: 1. Complete a 10-day course of levofloxacin and metronidazole. 2. We will give a trial of mesalamine for chronic recurrent diverticulitis. 3. Follow up with Dr. Tello in the office.
[2017-05-13] MEDS: Mesalamine DR 400 mg Capsule PO SCH (22:27)
[2017-05-14] MEDS: Ketorolac Tromethamine 30 MG/ML VIAL IVP SCH ×5 (00:10→23:36)
[2017-05-14] MEDS: Acetaminophen 325 MG TAB PO PRN (03:21)
[2017-05-14 05:32] LABS: #Eosinphils 0.5 thou/uL (0.0-0.7); #Lymphocytes 2.9 thou/uL (1.20-3.40); #Neutrophils 5.9 thou/uL (1.40-6.50); %Basophils 0.3 % (0.0-1.0); %Eosinophils 4.7 % (0.0-10.0); %Lymphocytes 28.1 % (21.0-51.0); %Monocytes 9.2 % (0.0-10.0); %Neutrophils 57.6 % (42.0-75.0); Hemoglobin 10.4 g/dL (12.0-16.0); Mean Corpuscular Hemoglobin 31.5 pg (27.0-31.0); Mean Corpuscular Volume 95.5 fl (81.0-99.0); Mean Platelet Volume 6.1 fL (7.4-10.4); Platelet Count 315 thou/uL (130-400); RBC Distribution Width 14.2 % (11.5-14.5); Red Blood Cell (RBC) Count 3.31 mill/uL (4.20-5.40); White Blood Cell (WBC) Count 10.3 thou/uL (4.8-10.8)
[2017-05-14 05:46] LABS: ALT (SGPT) 17 U/L (8-55); AST (SGOT) 17 U/L (5-34); Alkaline Phosphatase 50 U/L (40-150); Anion Gap 12 mmol/L (10-20); BUN (Urea Nitrogen) 6 mg/dL (9.8-20.1); Bilirubin, Total 0.4 mg/dL (0.2-1.2); Calc. Creatinine Clearance 74 mL/min (70-130); Calcium 9.2 mg/dL (7.8-10.44); Carbon Dioxide 22 mmol/L (23-31); Chloride 103 mmol/L (98-107); Estimated GFR-MDRD 86; Globulin 2.4 g/dL (2.4-3.5); Glucose 120 mg/dL (83-110); Magnesium 1.5 mg/dL (1.6-2.6); Potassium 3.9 mmol/L (3.5-5.1); Protein, Total 5.4 g/dL (6.0-8.3); Sodium 133 mmol/L (136-145)
[2017-05-14] MEDS: Potassium Chloride 40 MEQ in Sodium Chloride 0.45% 1,000 ML IV SCH (06:49)
[2017-05-14] MEDS: Spironolactone 25 MG TAB PO SCH ×2 (10:12→18:39)
[2017-05-14] MEDS: cloNIDine 0.3 MG TAB PO SCH ×3 (10:12→23:31)
[2017-05-14] MEDS: PROPRANOLOL HCL 60 MG PO SCH ×3 (10:14→23:31)
[2017-05-14] MEDS: hydrALAZINE 25 MG TAB PO SCH ×3 (10:14→23:31)
[2017-05-14] MEDS: metroNIDAZOLE 250 MG TAB PO SCH ×3 (10:15→23:31)
[2017-05-14] MEDS: busPIRone HCl 5 MG TAB PO SCH (10:15)
[2017-05-14] MEDS: Aspirin 81 mg Enteric Coated Tablet PO SCH (10:15)
[2017-05-14] MEDS: Heparin 5,000 UNITS/ML VIAL SC SCH (10:21)
[2017-05-14 11:34] LABS: #Eosinphils 0.1 thou/uL (0.0-0.7); #Neutrophils 7.5 thou/uL (1.40-6.50); %Basophils 0.2 % (0.0-1.0); %Eosinophils 1.2 % (0.0-10.0); %Lymphocytes 25.6 % (21.0-51.0); %Monocytes 8.5 % (0.0-10.0); %Neutrophils 64.5 % (42.0-75.0); Hemoglobin 11.6 g/dL (12.0-16.0); Mean Corpuscular HGB CONC 33.6 g/dL (32.0-36.0); Mean Corpuscular Hemoglobin 32.4 pg (27.0-31.0); Mean Corpuscular Volume 96.3 fl (81.0-99.0); Mean Platelet Volume 5.6 fL (7.4-10.4); Platelet Count 327 thou/uL (130-400); RBC Distribution Width 14.4 % (11.5-14.5); Red Blood Cell (RBC) Count 3.58 mill/uL (4.20-5.40); White Blood Cell (WBC) Count 11.6 thou/uL (4.8-10.8)
[2017-05-14 11:46] LABS: Anion Gap 14 mmol/L (10-20); BUN (Urea Nitrogen) 5 mg/dL (9.8-20.1); Calc. Creatinine Clearance 75 mL/min (70-130); Calcium 9.4 mg/dL (7.8-10.44); Carbon Dioxide 23 mmol/L (23-31); Chloride 101 mmol/L (98-107); Estimated GFR-MDRD 87; Glucose 107 mg/dL (83-110); Potassium 3.5 mmol/L (3.5-5.1); Sodium 134 mmol/L (136-145)
--- NOTE | 2017-05-14 12:00 | PRG ---
DATE OF SERVICE: 05/14/2017 SUBJECTIVE: Ms. Carrera is tolerating a solid diet well. She has minimal abdominal pain in the left l ower quadrant now. She has had no further diarrhea. PHYSICAL EXAMINATION: VITAL SIGNS: Temperature 98.3, pulse 79, blood pressure 145/60. GENERAL: She is in no acute distress, alert and oriented x3. LUNGS: Clear to auscultation bilaterally. HEART: Regular rate and rhythm. ABDOMEN: Soft. Mild tenderness in the left lower quadrant without guarding. Bowel sounds are prese nt. EXTREMITIES: No lower extremity edema. LABORATORY DATA: White blood cell count 10.3, hemoglobin 10.4, creatinine 0.67. IMPRESSION: Acute diverticulitis, clinically improving. She has had chronic recurrent diverticuliti s and has been started on mesalamine to see if this can prevent recurrent flares. RECOMMENDATIONS: 1. Complete a 10-day course of levofloxacin and metronidazole. 2. Mesalamine 800 mg 3 times a day. 3. Follow up with Dr. Tello. I will sign off for now. Please call if GI can be of assistance.
[2017-05-14] MEDS: methylPREDNISolone 4 mg Tablet PO SCH (13:04)
[2017-05-14] MEDS: Mesalamine DR 400 mg Capsule PO SCH ×2 (13:04→18:37)
[2017-05-14] MEDS ORDERED: Potassium Chloride 20 MEQ TAB PO SCH (13:15)
--- NOTE | 2017-05-14 13:17 | PDOC.PN ---
- Subjective Encounter Start Date: 05/14/17 Encounter Start Time: 13:15 Patient seen and examined. No new complaints. No overnight events. c/o abd pain. No N/V. - Objective MAR Reviewed: Yes Vital Signs & Weight: Vital Signs (12 hours) Temp Pulse Resp BP BP Pulse Ox 05/14/17 11:19 98.9 F 73 14 184/70 H 95 05/14/17 10:14 79 05/14/17 10:12 145/60 H 05/14/17 07:33 98.3 F 79 16 163/73 H 94 L 05/14/17 04:00 98 F 69 16 138/54 L 95 I&O: 05/13/17 05/14/17 05/15/17 06:59 06:59 06:59 Intake Total 2850 Balance 2850 Result Diagrams: 05/14/17 11:24 05/14/17 11:24 Phys Exam - Physical Examination Constitutional: NAD HEENT: sclera anicteric Neck: supple Respiratory: no wheezing, no rales Cardiovascular: irregular Gastrointestinal: soft Musculoskeletal: no edema Neurological: non-focal, moves all 4 limbs Psychiatric: normal affect, A&O x 3 Skin: no rash Dx/Plan (1) Acute diverticulitis of intestine Code(s): K57.92 - DVTRCLI OF INTEST, PART UNSP, W/O PERF OR ABSCESS W/O BLEED Status: Acute (2) Chronic atrial fibrillation Code(s): I48.2 - CHRONIC ATRIAL FIBRILLATION Status: Chronic Comment: s/p Watchman device (3) NSTEMI (non-ST elevated myocardial infarction) Code(s): I21.4 - NON-ST ELEVATION (NSTEMI) MYOCARDIAL INFARCTION Status: Acute (4) Hyperlipidemia Code(s): E78.5 - HYPERLIPIDEMIA, UNSPECIFIED Status: Chronic Qualifiers: Hyperlipidemia type: pure hypercholesterolemia Qualified Code(s): E78.00 - Pure hypercholesterolemia, unspecified; E78.0 - Pure hypercholesterolemia (5) Hypertension Code(s): I10 - ESSENTIAL (PRIMARY) HYPERTENSION Status: Chronic Qualifiers: Hypertension type: essential hypertension Qualified Code(s): I10 - Essential (primary) hypertension (6) Sjogren's syndrome Code(s): M35.00 - SICCA SYNDROME, UNSPECIFIED Status: Chronic (7) Hypokalemia Code(s): E87.6 - HYPOKALEMIA Status: Resolved (8) Hypomagnesemia Code(s): E83.42 - HYPOMAGNESEMIA Status: Resolved - Plan cont current plan of care, continue antibiotics, DVT proph w/SCDs * . continue po abx pain control rehab screen DC planning.
[2017-05-14] MEDS ORDERED: Enoxaparin Sodium 30 MG/0.3 ML SYRINGE SC SCH (13:30)
[2017-05-14] MEDS: cloNIDine 0.1 MG TAB PO PRN (13:53)
[2017-05-14] MEDS ORDERED: HYDROcodone/Acetaminophen 5/325 mg Tablet PO PRN (14:11)
[2017-05-14] MEDS: Mag-Al 1200 mg/1200 mg/30 ML UDCUP PO PRN (22:01)
[2017-05-14] MEDS ORDERED: Mesalamine DR 400 mg Capsule PO SCH (23:00)
[2017-05-15] MEDS: Ketorolac Tromethamine 30 MG/ML VIAL IVP SCH ×3 (06:40→17:36)
[2017-05-15] MEDS ORDERED: Enoxaparin Sodium 30 MG/0.3 ML SYRINGE SC SCH (09:00)
[2017-05-15] MEDS: PROPRANOLOL HCL 60 MG PO SCH ×3 (09:39→20:12)
[2017-05-15] MEDS: Mag-Al 1200 mg/1200 mg/30 ML UDCUP PO PRN ×2 (09:39→19:40)
[2017-05-15] MEDS: Mesalamine DR 400 mg Capsule PO SCH ×3 (09:39→20:11)
[2017-05-15] MEDS: cloNIDine 0.3 MG TAB PO SCH ×3 (09:40→20:12)
[2017-05-15] MEDS: metroNIDAZOLE 250 MG TAB PO SCH ×3 (09:41→20:12)
[2017-05-15] MEDS: hydrALAZINE 25 MG TAB PO SCH ×3 (09:41→20:13)
[2017-05-15] MEDS: Spironolactone 25 MG TAB PO SCH ×2 (09:41→17:36)
[2017-05-15] MEDS: busPIRone HCl 5 MG TAB PO SCH (09:42)
[2017-05-15] MEDS: Aspirin 81 mg Enteric Coated Tablet PO SCH (09:42)
[2017-05-15] MEDS: methylPREDNISolone 4 mg Tablet PO SCH (12:43)
--- NOTE | 2017-05-15 13:03 | PDOC.PN ---
- Subjective Encounter Start Date: 05/15/17 Encounter Start Time: 13:02 Patient seen and examined. No new complaints. No overnight events feeling better today. - Objective MAR Reviewed: Yes Vital Signs & Weight: Vital Signs (12 hours) Temp Pulse Resp BP BP Pulse Ox 05/15/17 11:14 98.1 F 71 14 112/68 97 05/15/17 09:41 69 153/83 H 05/15/17 09:40 153/83 H 05/15/17 07:45 98 F 69 14 153/83 H 96 Result Diagrams: 05/14/17 11:24 05/14/17 11:24 Phys Exam - Physical Examination Constitutional: NAD HEENT: sclera anicteric Neck: supple Respiratory: no wheezing, no rales Cardiovascular: RRR Gastrointestinal: soft Musculoskeletal: no edema Neurological: non-focal, moves all 4 limbs Psychiatric: normal affect, A&O x 3 Skin: no rash Dx/Plan (1) Acute diverticulitis of intestine Code(s): K57.92 - DVTRCLI OF INTEST, PART UNSP, W/O PERF OR ABSCESS W/O BLEED Status: Acute (2) Chronic atrial fibrillation Code(s): I48.2 - CHRONIC ATRIAL FIBRILLATION Status: Chronic Comment: s/p Watchman device (3) NSTEMI (non-ST elevated myocardial infarction) Code(s): I21.4 - NON-ST ELEVATION (NSTEMI) MYOCARDIAL INFARCTION Status: Acute (4) Hyperlipidemia Code(s): E78.5 - HYPERLIPIDEMIA, UNSPECIFIED Status: Chronic Qualifiers: Hyperlipidemia type: pure hypercholesterolemia Qualified Code(s): E78.00 - Pure hypercholesterolemia, unspecified; E78.0 - Pure hypercholesterolemia (5) Hypertension Code(s): I10 - ESSENTIAL (PRIMARY) HYPERTENSION Status: Chronic Qualifiers: Hypertension type: essential hypertension Qualified Code(s): I10 - Essential (primary) hypertension (6) Sjogren's syndrome Code(s): M35.00 - SICCA SYNDROME, UNSPECIFIED Status: Chronic (7) Hypokalemia Code(s): E87.6 - HYPOKALEMIA Status: Resolved (8) Hypomagnesemia Code(s): E83.42 - HYPOMAGNESEMIA Status: Resolved - Plan cont current plan of care * . continue po abx and mesalamine. awaiting rehab placement DC planning.
[2017-05-15 16:30] VITALS: TEMP 98.4
[2017-05-15 20:14] VITALS: BP 145/71
--- NOTE | 2017-05-15 22:29 | DIS ---
DATE OF ADMISSION: 05/07/2017 DATE OF DISCHARGE: 05/15/2017 DISCHARGE DIAGNOSES: Acute left colon diverticulitis, history of hypertension, history of hyperlipid emia, history of hypothyroidism, history of Sjogren syndrome. CONSULTATIONS: GI, Dr. Soliman. PROCEDURES: CT abdomen which showed left colon diverticulitis. HOSPITAL COURSE: This is a 76-year-old female with history as mentioned who came to the hospital wit h left-sided abdominal pain and was found to have colon diverticulitis. She was on IV antibiotics in itially with a significant improvement and was switched to p.o. Levaquin and Flagyl. She was also co ntinued on mesalamine and was tolerating it well. Patient feels very weak while at the hospital and was requested rehabilitation and see what approved and qualified for rehab, so patient will be transf erred to inpatient rehab in stable condition. CONDITION ON DISCHARGE: Stable. DISPOSITION: To [facility]. DISCHARGE MEDICATIONS: Propranolol 60 mg p.o. t.i.d., aspirin 81 mg p.o. daily, [place] thyroid 60 mg p.o. q.a.m., BuSpar 5 mg p.o. daily, clonidine 0.3 p.o. t.i.d., hydralazine 50 p.o. t.i.d., Flagyl 2 50 p.o. t.i.d., mesalamine 800 mg p.o. daily, Levaquin 500 mg p.o. daily, Maalox 30 mg p.o. q.6 p.r.n ., and Tylenol regular strength 650 p.o. q.4 p.r.n. for pain. ALLERGIES: Amlodipine. DISCHARGE FOLLOWUP: Follow up with physician at [facility]. Follow up with primary care physician in 1 week after discharge from the rehabilitation.
== END 2017-05-15 20:30 | DRG 392 ==
LOC: ERS 16:11 → SURG B 20:54
PROVIDERS: ADMIT Internal Medicine; ATTEND Internal Medicine
DX: K57.32 Diverticulitis of large intestine without perforation or abscess without bleeding (principal); I48.0 Paroxysmal atrial fibrillation; I11.0 Hypertensive heart disease with heart failure; I50.32 Chronic diastolic (congestive) heart failure; M35.00 Sjogren syndrome, unspecified; E83.42 Hypomagnesemia; I47.1 Supraventricular tachycardia; E11.9 Type 2 diabetes mellitus without complications; Z79.52 Long term (current) use of systemic steroids; Z88.8 Allergy status to other drugs, medicaments and biological substances; I25.10 Atherosclerotic heart disease of native coronary artery without angina pectoris; Z86.73 Personal history of transient ischemic attack (TIA), and cerebral infarction without residual deficits; E03.9 Hypothyroidism, unspecified; K63.5 Polyp of colon; M19.90 Unspecified osteoarthritis, unspecified site; I25.2 Old myocardial infarction; E78.00 Pure hypercholesterolemia, unspecified; E87.6 Hypokalemia; F41.9 Anxiety disorder, unspecified
CPT/HCPCS: 36415; 51701; 74177; 80048; 80053; 81003; 83735; 85025; 87324; 87449; 96361; 96365; 96367; 96375; A4216; A4353; G8978-GP-CK; G8979-GP-CJ; J0131; J0360; J0744; J1644; J1650; J1885; J1956; J2270; J2405; J2543; J2550; J3475; J3480; J7050

== ENCOUNTER 2017-05-28 11:19 | Inpatient (IN) | payer MEDICARE, BC ==
[2017-05-28 12:01] LABS: #Basophils 0.1 thou/uL (0.0-0.2); #Eosinphils 0.9 thou/uL (0.0-0.7); #Lymphocytes 5.6 thou/uL (1.20-3.40); #Monocytes 2.1 thou/uL (0.11-0.59); #Neutrophils 10.2 thou/uL (1.40-6.50); %Basophils 0.4 % (0.0-1.0); %Eosinophils 4.5 % (0.0-10.0); %Lymphocytes 29.9 % (21.0-51.0); %Neutrophils 54.2 % (42.0-75.0); Hemoglobin 14.6 g/dL (12.0-16.0); Mean Corpuscular HGB CONC 34.2 g/dL (32.0-36.0); Mean Corpuscular Volume 93.6 fl (81.0-99.0); Platelet Count 421 thou/uL (130-400); RBC Distribution Width 14.5 % (11.5-14.5); Red Blood Cell (RBC) Count 4.56 mill/uL (4.20-5.40); White Blood Cell (WBC) Count 18.8 thou/uL (4.8-10.8)
[2017-05-28 12:10] LABS: INR-International Normal Ratio 1.1; PTT 30.1 SEC (22.9-36.1); Prothrombin Time 13.9 SEC (12.0-14.7)
[2017-05-28] MEDS ORDERED: Ondansetron HCl/PF 4 MG/2 ML Vial ONE (12:17)
[2017-05-28 12:23] LABS: CKMB 1.6 ng/mL (0-6.6); Troponin I 0.036 ng/mL (< 0.028)
--- NOTE | 2017-05-28 12:29 | RAD ---
UPRIGHT PORTABLE CHEST 1 VIEW: Date: 05/28/17 HISTORY: 76-year-old female with history of nausea and vomiting. Tested positive for flu. FINDINGS: Monitor leads overlie the chest. Minimal increased linear and interstitial markings noted bilaterally , stable. Status post vertebroplasty changes of the upper lumbar/lower thoracic spine. IMPRESSION: Stable chronic changes. No acute intrathoracic disease. POS: PROSPER
[2017-05-28] MEDS ORDERED: ISOVUE-370 76%-LOCM 1 ML ONE (12:31)
[2017-05-28] MEDS ORDERED: Morphine 4 MG/ML Carpuject ONE (13:03)
[2017-05-28] MEDS ORDERED: HYDROcodone/Acetaminophen 5/325 mg Tablet ONE (13:08)
[2017-05-28 13:21] LABS: ALT (SGPT) 12 U/L (8-55); AST (SGOT) 20 U/L (5-34); Albumin 3.3 g/dL (3.4-4.8); Alkaline Phosphatase 60 U/L (40-150); Anion Gap 15 mmol/L (10-20); BUN (Urea Nitrogen) 10 mg/dL (9.8-20.1); Bilirubin, Total 1.1 mg/dL (0.2-1.2); CK (CPK) 22 U/L (29-168); Calc. Creatinine Clearance 0 mL/min (70-130); Carbon Dioxide 24 mmol/L (23-31); Chloride 92 mmol/L (98-107); Estimated GFR-MDRD 80; Globulin 3.1 g/dL (2.4-3.5); Glucose 154 mg/dL (83-110); Lipase 16 U/L (8-78); Protein, Total 6.4 g/dL (6.0-8.3); Sodium 127 mmol/L (136-145)
[2017-05-28 13:23] LABS: Calcium 12.2 mg/dL (7.8-10.44)
[2017-05-28 13:33] LABS: Bilirubin Small (Negative); Blood, Urine Negative (Negative); Glucose, Urine (Dipstick) Negative (Negative); Leukocyte Negative (Negative); Nitrite Negative (Negative); Protein, Urine (Dipstick) 30 mg/dL (Neg-Trace); Urobilinogen 0.2 mg/dL (0.2-1.0)
[2017-05-28 13:40] LABS: Clarity Hazy (Clear); Specific Gravity, Urine 1.023 (1.002-1.036)
[2017-05-28 13:51] LABS: Bacteria/HPF Rare-Few HPF (None Seen); Hyaline Casts/LPF 4-6 HYALINE CAST LPF (0-3 Hyaline); RBC/HPF 0-3 HPF (0-3)
--- NOTE | 2017-05-28 15:02 | CT ---
ABDOMEN AND PELVIC CT SCAN WITH IV CONTRAST: Date: 05/28/17 HISTORY: 76-year-old female with vomiting and nausea, cough and sore throat. COMPARISON: 05/07/17. FINDINGS: There appears to be cardiomegaly with some pericardial effusion, particularly posteriorly, measuring up to 1.4 cm in thickness focally. There are some linear and nodular pleural based parenchymal change s in both lung bases, worse on the left side, with some minimal left pleural fluid or more likely ple ural thickening. Status post cholecystectomy. No ductal dilatation. Pancreas, spleen, and adrenal gla nds are unremarkable. No evidence for renal calculi or acute obstruction. Severe bony demineraliza tion of the lumbar spine with numerous older appearing compression injuries with numerous vertebropla sty changes. There is some fat stranding adjacent to the left colon, with a small, approximately 1.0 cm diameter slightly more nodular focus, possibly a tiny confined perforation. This is too small to c onsider any type of percutaneous drainage. This is in the same region of the more diffuse fat strandi ng seen on the prior study of 05/07/17. IMPRESSION: Evidence of evolving diverticulitis involving the left colon with a small, approximately 1.[address], confined fluid collection adjacent to the colon laterally at the left colon level, possibly a ve ry tiny abscess or confined perforation. This is too small to consider any type of percutaneous drain age. This is in the area of the previously noted fat stranding and acute diverticulitis seen at the time of the prior study. Some posterior pericardial fluid. Pleural based parenchymal changes bilatera lly, more prominent in the left lower lobe, possibly some subsegmental atelectasis. No renal calculus or obstruction. No bowel obstruction. Abnormal lumbar spine, stable. POS: [facility]
[2017-05-28] MEDS ORDERED: Piperacillin/Tazobactam 3.375 GM in Sodium Chloride 0.9% 100 ML IVPB SCH (15:30)
[2017-05-28] MEDS ORDERED: Sodium Chloride 0.9% 1,000 ML IV SCH (17:43)
[2017-05-28] MEDS ORDERED: Acetaminophen 325 MG TAB PO PRN (17:43)
[2017-05-28] MEDS ORDERED: Ondansetron HCl/PF 4 MG/2 ML Vial IVP PRN (17:43)
[2017-05-28] MEDS ORDERED: Ondansetron ODT 4 MG TAB SL PRN (17:43)
[2017-05-28] MEDS ORDERED: hydrALAZINE 20 MG/ML VIAL SLOW IVP PRN (18:26)
[2017-05-28] MEDS ORDERED: Nitroglycerin 0.4 MG TAB (25 Tab Bottle) SL PRN (18:26)
[2017-05-28] MEDS ORDERED: Bisacodyl 5 MG TAB PO PRN ×2 (18:26)
[2017-05-28] MEDS ORDERED: diphenhydrAMINE 25 MG CAP PO PRN (18:26)
[2017-05-28 18:50] VITALS: BMI 28.3
[2017-05-28] MEDS: Sodium Chloride 0.9% 1,000 ML IV SCH (19:56)
[2017-05-28] MEDS: hydrALAZINE 25 MG TAB PO SCH (20:50)
[2017-05-28] MEDS: cloNIDine 0.3 MG TAB PO SCH (20:50)
[2017-05-28] MEDS: Piperacillin/Tazobactam 4.5 GM in Sodium Chloride 0.9% 100 ML IVPB SCH (20:55)
[2017-05-28] MEDS: HYDROcodone/Acetaminophen 5/325 mg Tablet PO PRN (21:13)
[2017-05-28] MEDS: Propranolol 60 MG TAB PO SCH (21:14)
--- NOTE | 2017-05-28 21:32 | HP ---
DATE OF ADMISSION: 05/28/2017 PRIMARY CARE PHYSICIAN: Glenn Tom M.D. REASON FOR ADMISSION: Recurrent diverticulitis. HISTORY OF PRESENT ILLNESS: Ms. Arabella Carrera is a 76-year-old female with a past medical history of diverticulitis with a most recent episode approximately 3 weeks ago, Sjogren's disease, hypertension , hyperlipidemia, hypothyroidism who presents to the emergency room complaining of abdominal pain whi ch began yesterday and has persisted. The patient was recently admitted and discharged from [facility] on 05/15/2017 to rehabilitation. During that admission, she was admitted for diverticulitis and d ischarged home on a 10-day course of Levaquin and Flagyl. She has completed these medications[facility] she [facility] the [facility] and completed Tamiflu. She states that after she is discharged from rehabilitation, she began to have abdominal pain. She states the pain is generalize d; however, more pronounced in the left lower quadrant. She states there have been no documented fev ers, but has felt chills. No diarrhea, but she has reported nausea, vomiting. She states she is bess ble to keep any solid food down, only liquids, and that is with some discomfort. She returned back t o the emergency room today where she was evaluated. A CT of the abdomen and pelvis revealed evidence of an evolving diverticulitis involving the left colon with small approximately 1 cm diameter confin ed fluid collection and a possibly very tiny abscess or confined perforation. This was too small to consider for any type of percutaneous drainage. She denies any chest pain or shortness of breath. S he is now being admitted to the telemetry floor for further evaluation and treatment of her symptoms. Of note, the patient was in discussion of surgery on her last admission. However, at that time, th e patient did not want surgery. She has not seen a general surgeon since her discharge. PAST MEDICAL HISTORY: 1. Atrial fibrillation, status post ablation and Watchman procedure. 2. Hyperlipidemia. 3. Hypothyroidism. 4. Hypertension. 5. Sjogren's disease on steroid therapy. 6. Osteoarthritis. PAST SURGICAL HISTORY: Appendectomy, hysterectomy and thyroidectomy. CODE STATUS: She is FULL code. SOCIAL HISTORY: The patient denies any alcohol, no tobacco use or illicit drug use. MEDICATIONS: 1. Hydralazine 50 mg p.o. t.i.d. 2. BuSpar 5 mg p.o. daily. 3. [place] Thyroid 60 mg p.o. daily. 4. Inderal 60 mg p.o. t.i.d. 5. Clonidine 0.3 mg p.o. t.i.d. 6. Aspirin 81 mg p.o. daily. 7. Tylenol p.r.n. ALLERGIES: AMLODIPINE. FAMILY HISTORY: Reviewed. Noncontributory. REVIEW OF SYSTEMS: The following complete review of systems was negative, unless otherwise mentioned in the HPI or below: Constitutional: Weight loss or gain, sense of well-being, ability to conduct usual activities, exerc ise tolerance. Skin/Breast: Rash, itching, changes in hair growth or loss, nail changes, breast lum ps, tenderness, swelling, nipple discharge. Eyes: Vision, double vision, tearing, blind spots, pain . ENT/Mouth: Headaches (location, time of onset, duration, precipitating factors), vertigo, lightheadedness, injury. Vision, double vision, tearing, blind spots, pain, nose bleeding, colds, obstruction, discharge, dental difficulties, gingival bleeding, dentures, neck stiff ness, pain, tenderness, masses in thyroid or other areas. Cardiovascular: Precordial pain, substern al distress, palpitations, syncope, dyspnea on exertion, orthopnea, nocturnal paroxysmal dyspnea, darius ma, cyanosis, hypertension, heart murmurs, varicosities, phlebitis, claudication. Respiratory: Pain , shortness of breath, wheezing, stridor, cough, hemoptysis, fever or night sweats. Gastrointestinal : Poor appetite, dysphagia, indigestion, abdominal pain, heartburn, eructation, nausea, vomiting, he matemesis, jaundice, constipation, or diarrhea, abnormal stools (hilary-colored, tarry, bloody, greasy, foul smelling), flatulence, hemorrhoids, recent changes in bowel habits. Genitourinary: Urgency, f requency, dysuria, nocturia, hematuria, polyuria, oliguria, unusual (or change in) color of urine, st ones, hesitancy, change in size of stream, dribbling, acute retention or incontinence, libido, potenc y. Musculoskeletal: Pain, swelling, redness or heat of muscles or joints, limitation, of motion, mu scular weakness, atrophy, cramps. Neurologic/Psychiatric: Convulsions, paralyses, tremor, incoordin ation, parasthesias, difficulties with memory of speech, sensory or motor disturbances, or muscular c oordination (ataxia, tremor), emotional problems, anxiety, depression, previous psychiatric care, unu sual perceptions, hallucinations. Allergy/Immunologic: Skin rash, anemia, bleeding tendency, polydi psia, polyuria, intolerance to heat or cold. PHYSICAL EXAMINATION: CONSTITUTIONAL/VITAL SIGNS: Blood pressure most recently is 165/59, pulse is 82, respirations are 18 , O2 saturation 98% on room air. GENERAL: She is in mild distress secondary to abdominal discomfort, nontoxic appearing. EYES: Pupils are round and reactive to light and accommodation. No pale conjunctivae. ENT/MOUTH: Dry oral mucosa. No oral lesions. RESPIRATORY: Equal chest wall expansion. No wheezes, rhonchi, or rales. CARDIOVASCULAR: S1, S2 present. No murmurs, gallops or rubs. GASTROINTESTINAL: Soft. She does have some tenderness in the left upper and left lower quadrant. T here is no rigidity, no rebound tenderness or guarding. Bowel sounds are present. LYMPHATIC: No swollen or painful cervical, axillary lymph nodes. NEUROLOGIC: No ptosis, no facial asymmetry, no tongue deviation or jaw protrusion, no focal deficits . PSYCHIATRIC: She is awake, alert and oriented to time, place, and person, answers appropriately. SKIN: Poor skin turgor. LABORATORY FINDINGS: Taken in the emergency room and reviewed by me reveal a WBC 18.8, hemoglobin 14 .6, hematocrit 42.7, platelet count is 421,000. INR is 1.1. Sodium is 127, potassium 4.0, chloride 92, carbon dioxide 24, anion gap 15, BUN 10, creatinine 0.71, glucose 154. Calcium is 12.2, AST and ALT at 20 and 12, CK 22, troponin first set is 0.036. Urine shows trace ketones, small bilirubin. IMAGIN. CT of the abdomen with IV contrast revealed evidence of an evolving diverticulitis involving the left colon with a small approximately 1 cm diameter confined fluid collection adjacent to the colon l aterally at the left colon, possibly very tiny abscess confined perforation. This was too small to c onsider any type of percutaneous drainage. 2. X-ray revealed no acute intrathoracic disease. 3. EKG in the emergency room reviewed by me revealed normal sinus rhythm, no acute ST segment abnorm alities. ASSESSMENT AND PLAN: Ms. Arabella Carrera is a 76-year-old female with a history of recurrent diverticu litis, hypothyroidism, hypertension, hyperlipidemia, and atrial fibrillation who presents to the [facility] room complaining of abdominal pain. 1. Abdominal pain secondary to recurrent diverticulitis. At this time, the patient was admitted to the telemetry floor. The patient does have evidence of a microperforation on imaging. General surge on safety consultant, Dr. Mota was contacted who stated at this time there is no acute intervention needed. She will be started on IV Zosyn as well as vancomycin for Enterococcal coverage. Gastroenterology a s well as General Surgery will be consulted to discuss the possibility of surgery at this time. We w ill keep the patient n.p.o., start her on IV fluids and continue to monitor her clinical progress. 2. Hypercalcemia, likely secondary to dehydration. We will continue with IV hydration and monitor c alcium levels. 3. Hyponatremia secondary to hypovolemia. We will continue with IV fluids. 4. Resume the patient's home medications. 5. N.p.o. after midnight. 6. Atrial fibrillation, currently stable, status post Watchman procedure. 7. P.r.n. order set. 8. FULL CODE. 9. I have explained all this to the patient as well as the family at bedside. They are agreeable to the plan of treatment. I have also explained that if the patient does have any further worsening of her symptoms, will likely require a reimaging of the abdomen and pelvis. The patient's further hospital course will be dictated by her clinical course while here.
[2017-05-28 22:31] LABS: Troponin I 0.038 ng/mL (< 0.028)
[2017-05-29] MEDS: Sodium Chloride 0.9% 1,000 ML IV SCH (00:17)
[2017-05-29 01:31] LABS: Troponin I 0.039 ng/mL (< 0.028)
[2017-05-29] MEDS: Vancomycin HCl 1 GM in Premix Bag 1 BAG IVPB SCH ×2 (03:57→16:06)
[2017-05-29] MEDS: HYDROcodone/Acetaminophen 5/325 mg Tablet PO PRN ×4 (03:57→20:37)
[2017-05-29] MEDS: Piperacillin/Tazobactam 4.5 GM in Sodium Chloride 0.9% 100 ML IVPB SCH ×3 (05:10→17:31)
[2017-05-29 05:39] LABS: ALT (SGPT) 8 U/L (8-55); AST (SGOT) 15 U/L (5-34); Albumin 2.6 g/dL (3.4-4.8); Alkaline Phosphatase 43 U/L (40-150); Anion Gap 12 mmol/L (10-20); BUN (Urea Nitrogen) 9 mg/dL (9.8-20.1); Bilirubin, Total 0.8 mg/dL (0.2-1.2); Calc. Creatinine Clearance 75 mL/min (70-130); Calcium 9.6 mg/dL (7.8-10.44); Carbon Dioxide 21 mmol/L (23-31); Chloride 99 mmol/L (98-107); Estimated GFR-MDRD 90; Globulin 2.4 g/dL (2.4-3.5); Glucose 113 mg/dL (83-110); Potassium 3.4 mmol/L (3.5-5.1); Sodium 129 mmol/L (136-145)
[2017-05-29 05:50] LABS: Eosinophils 4 % (0-10); Hemoglobin 11.7 g/dL (12.0-16.0); Lymphocytes 27 % (21-51); MDiff Complete? YES; Mean Corpuscular HGB CONC 35.6 g/dL (32.0-36.0); Mean Corpuscular Hemoglobin 33.5 pg (27.0-31.0); Mean Corpuscular Volume 94.1 fl (81.0-99.0); Mean Platelet Volume 6.8 fL (7.4-10.4); Metamyelocyte 2 % (0-0); Monocytes 7 % (0-10); Neutrophil 60 % (42-75); PLT Morphology Comment Appears Adequate; Platelet Count 293 thou/uL (130-400); RBC Distribution Width 14.2 % (11.5-14.5); Red Blood Cell (RBC) Count 3.49 mill/uL (4.20-5.40); White Blood Cell (WBC) Count 10.6 thou/uL (4.8-10.8)
[2017-05-29] MEDS ORDERED: NS 0.9% w/ 20 MEQ KCL 1,000 ML/1,000 ML BAG IV SCH (07:30)
[2017-05-29 07:55] LABS: Magnesium 1.2 mg/dL (1.6-2.6)
[2017-05-29 07:58] LABS: Phosphorus 1.7 mg/dL (2.3-4.7)
[2017-05-29] MEDS ORDERED: Potassium Phosphate 30 MMOL in Sodium Chloride 0.9% 500 ML IVPB SCH (08:30)
[2017-05-29] MEDS ORDERED: Magnesium Sulfate 4 GM in Sodium Chloride 0.9% 250 ML 250 ML IVPB SCH (08:30)
[2017-05-29] MEDS: Propranolol 60 MG TAB PO SCH ×3 (09:18→20:37)
[2017-05-29] MEDS: busPIRone HCl 5 MG TAB PO SCH (09:19)
[2017-05-29] MEDS: predniSONE 5 MG TAB PO SCH (09:19)
[2017-05-29] MEDS: hydrALAZINE 25 MG TAB PO SCH ×3 (09:19→20:37)
[2017-05-29] MEDS: cloNIDine 0.3 MG TAB PO SCH ×3 (09:19→20:37)
--- NOTE | 2017-05-29 10:54 | PDOC.PN ---
- Subjective Encounter Start Date: 05/29/17 Encounter Start Time: 08:00 -: old records requested/rev pt has joint pain, has abdominal pain, not doing well - Objective Resuscitation Status: Resuscitation Status DNR:Do Not Resuscitate MAR Reviewed: Yes Vital Signs & Weight: Vital Signs (12 hours) Temp Pulse Resp BP Pulse Ox 05/29/17 07:27 99.2 F 73 17 05/29/17 07:26 99.2 F 73 17 155/68 H 99 05/29/17 05:02 99.0 F 75 24 H 155/70 H 97 05/28/17 23:29 98.0 F 79 19 139/59 L 97 Weight Weight 139 lb 11.2 oz I&O: 05/28/17 05/29/17 05/30/17 06:59 06:59 06:59 Intake Total 1625 Output Total 0 Balance 1625 Result Diagrams: 05/29/17 04:35 05/29/17 04:35 Radiology Reviewed by me: Yes EKG Reviewed by me: Yes Phys Exam - Physical Examination Constitutional: NAD HEENT: PERRLA, moist MMs, sclera anicteric Neck: no JVD, supple Respiratory: no wheezing, no rales, no rhonchi Cardiovascular: RRR, no significant murmur, no rub Gastrointestinal: soft, no distention, positive bowel sounds LLQ tenderness Musculoskeletal: no edema, pulses present Joint pain Neurological: non-focal, normal sensation Psychiatric: normal affect, A&O x 3 Skin: no rash, normal turgor Dx/Plan (1) Acute diverticulitis of intestine Code(s): K57.92 - DVTRCLI OF INTEST, PART UNSP, W/O PERF OR ABSCESS W/O BLEED Status: Acute Comment: complicated, with microabscess/perforation (2) Elevated troponin Code(s): R74.8 - ABNORMAL LEVELS OF OTHER SERUM ENZYMES Status: Acute Comment: demand ischemia (3) Hypercalcemia Code(s): E83.52 - HYPERCALCEMIA Status: Resolved (4) Hypokalemia Code(s): E87.6 - HYPOKALEMIA Status: Acute (5) Hypomagnesemia Code(s): E83.42 - HYPOMAGNESEMIA Status: Acute (6) Hyponatremia Code(s): E87.1 - HYPO-OSMOLALITY AND HYPONATREMIA Status: Acute (7) Hypophosphatemia Code(s): E83.39 - OTHER DISORDERS OF PHOSPHORUS METABOLISM Status: Acute (8) Chronic atrial fibrillation Code(s): I48.2 - CHRONIC ATRIAL FIBRILLATION Status: Chronic Comment: s/p Watchman device (9) Hyperlipidemia Code(s): E78.5 - HYPERLIPIDEMIA, UNSPECIFIED Status: Chronic Qualifiers: (10) Hypertension Code(s): I10 - ESSENTIAL (PRIMARY) HYPERTENSION Status: Chronic Qualifiers: (11) Hypothyroidism Code(s): E03.9 - HYPOTHYROIDISM, UNSPECIFIED Status: Chronic (12) Paroxysmal SVT (supraventricular tachycardia) Code(s): I47.1 - SUPRAVENTRICULAR TACHYCARDIA Status: Chronic (13) Sjogren's syndrome Code(s): M35.00 - SICCA SYNDROME, UNSPECIFIED Status: Chronic - Plan cont current plan of care, plan discussed w/ family, continue antibiotics * change IVF with potassium * replace potassium phosphate * replace magnesium sulfate * repeat labs tomorrow * GI and surgeon consulted * discussed with son and pt * code status addressed and per pt will change to DNR * add flagyl * continue IV zosyn and vancomycin * pain control with fentanyl. * selected home meds * medication reviewed as below * symptomatic treatment Review of Systems - Review of Systems Constitutional: weakness. negative: fever, chills, sweats, malaise, other ENT: negative: Ear Pain, Ear Discharge, Nose Pain, Nose Discharge, Nose Congestion, Mouth Pain, Mouth Swelling, Throat Pain, Throat Swelling, Other Respiratory: negative: Cough, Dry, Shortness of Breath, Hemoptysis, SOB with Excertion, Pleuritic Pain, Sputum, Wheezing Cardiovascular: negative: chest pain, palpitations, orthopnea, paroxysmal nocturnal dyspnea, edema, light headedness, other Gastrointestinal: Abdominal Pain. negative: Nausea, Vomiting, Diarrhea, Constipation, Melena, Hematochezia, Other Musculoskeletal: negative: Neck Pain, Shoulder Pain, Arm Pain, Back Pain, Hand Pain, Leg Pain, Foot Pain, Other Skin: negative: Rash, Lesions, Gamal, Bruising, Other - Medications/Allergies Allergies/Adverse Reactions: Allergies Allergy/AdvReac Type Severity Reaction Status Date / Time amlodipine Allergy "swelled Verified 05/28/17 18:49 in feet and legs" Medications: Current Medications Hydrocodone Bitart/Acetaminophen ([place] 5/325) 1 tab PO Q4H PRN PRN Reason: Moderate Pain (4-6) Last Admin: 05/29/17 09:19 Dose: 1 tab Al Hydroxide/Mg Hydroxide (Maalox) 30 ml PO Q6H PRN PRN Reason: Heartburn or Indigestion Bisacodyl (Dulcolax) 10 mg PO DAILYPRN PRN PRN Reason: Constipation Buspirone HCl (Buspar) 5 mg PO DAILY [facility] Last Admin: 05/29/17 09:19 Dose: 5 mg Clonidine (Catapres) 0.3 mg PO TID [facility] Last Admin: 05/29/17 09:19 Dose: 0.3 mg Diphenhydramine HCl (Benadryl) 25 mg PO Q4H PRN PRN Reason: Itching Hydralazine HCl (Apresoline) 10 mg SLOW IVP Q4H PRN PRN Reason: Systolic BP > 180 Hydralazine HCl (Apresoline) 50 mg PO TID [facility] Last Admin: 05/29/17 09:19 Dose: 50 mg Piperacillin Sod/Tazobactam (Sod 4.5 gm/ Sodium Chloride) 100 mls @ 200 mls/hr IVPB 0400,1000,1600,2200 [facility] Last Admin: 05/29/17 10:51 Dose: 100 mls Vancomycin HCl 1 gm/ Device 200 mls @ 200 mls/hr IVPB 0300,1500 [facility] Last Admin: 05/29/17 03:57 Dose: 200 mls Potassium Chloride/Sodium Chloride (Ns 0.9% W/ 20 Meq Kcl) 1,000 ml in 1,000 mls @ 125 mls/hr IV .Q8H [facility] Magnesium Sulfate 4 gm/ Sodium (Chloride) 258 mls @ 86 mls/hr IVPB 0830 [facility] Stop: 05/29/17 11:29 Last Admin: 05/29/17 09:20 Dose: 258 mls Potassium Phosphate 30 mmol/ (Sodium Chloride) 510 mls @ 83.3 mls/hr IVPB 0830 [facility] Stop: 05/29/17 14:38 Last Admin: 05/29/17 09:21 Dose: 510 mls Metronidazole 500 mg/ Device 100 mls @ 100 mls/hr IVPB Q8HR [facility] Nitroglycerin (Nitrostat) 0.4 mg SL Q5MIN PRN PRN Reason: Chest Pain Prednisone (Prednisone) 5 mg PO DAILY [facility] Last Admin: 05/29/17 09:19 Dose: 5 mg Propranolol HCl (Inderal) 60 mg PO TID [facility] Last Admin: 05/29/17 09:18 Dose: 60 mg Sodium Chloride (Flush - Normal Saline) 10 ml IVF Q12HR [facility] Last Admin: 05/29/17 09:20 Dose: Not Given Sodium Chloride (Flush - Normal Saline) 10 ml IVF PRN PRN PRN Reason: Saline Flush Thyroid ([place] Thyroid) 60 mg PO QAM [facility] Last Admin: 05/29/17 10:51 Dose: 60 mg
[2017-05-29] MEDS ORDERED: Fentanyl 100 MCG/2 ML VIAL SLOW IVP PRN (10:55)
[2017-05-29] MEDS ORDERED: Ketorolac Tromethamine 30 MG/ML VIAL IVP PRN (10:56)
[2017-05-29] MEDS: metroNIDAZOLE 500 MG in Premix Bag 1 BAG IVPB SCH (13:50)
--- NOTE | 2017-05-29 18:52 | PRG ---
DATE OF SERVICE: 05/29/2017 HISTORY OF PRESENT ILLNESS: Arabella Carrera is a 76-year-old female admitted on 05/28/2017 by the [facility]. It is confusing her admission. The patient is not a good historian. She does not remember w hether she is having pain or not, but the emergency room physician noted that she complained of cough and a sore throat and nausea and vomiting. Emergency room records report that there was no abdomina l tenderness. The patient was admitted by Hospitalist who notes that the patient was complaining of abdominal pain. The patient denies having abdominal pain except for some discomfort in left upper quadrant. The dinesh ley had a CAT scan on admission 1:23 p.m. noting changes with fat stranding around the left colon. It was thought there might be a tiny contained perforation no more than 1 cm collection. She is adm itted and placed on IV antibiotics. She is admitted with the diagnosis of diverticulitis. She is on Zosyn and vancomycin. The patient is on methylprednisolone 4 mg a day. She was recently hospitaliz ed from 05/07/2017 to 05/15/2017 for diverticulitis. She has a history of Sjogren syndrome, hypothyr oidism, hyperlipidemia, and hypertension. The patient was sent to [facility]. She had severe decon ditioning. She had been home since last and was readmitted Monday yesterday. In the past h ospitalization, Dr. Tello and Dr. Pham followed her. Patient during that hospitalization noted luke t she did not want to have the operation. It was noted that in December she was admitted and treated f or diverticulitis and then again in late April for diverticulitis. During the recent hospitalizat ion, the patient emphatically stated that she did not want operation. She is on a daily methylpredni solone and she states she received increased stress doses during recent rehabs day. ALLERGIES: AMLODIPINE. CODE STATUS: DNR status. TOBACCO: None. ALCOHOL: None. MEDICATIONS: Inderal, aspirin, thyroid, spironolactone, BuSpar, methylprednisolone 4 mg a day, cloni dine daily, hydralazine 50 mg t.i.d. PAST MEDICAL HISTORY: Sjogren syndrome, on steroids chronically. Hypertension, chronic atrial fibri llation, having had tubal ligations in the past, Watchman device is in place. Hyperlipidemia, at [facility] 2 past admissions for diverticulitis in 2017 mid and later. PAST SURGICAL HISTORY: Appendectomy, total abdominal hysterectomy over two operations, thyroidectomy for goiter, laparoscopic cholecystectomy, elbow bursa surgery, lumbar L3-L4 surgery, thoracic spine surgery, Watchman device for TIA sustained on anticoagulation provided for atrial fibrillation, coron ehsan artery disease followed by , EGD and colonoscopy in 2012. PHYSICAL EXAMINATION: VITAL SIGNS: 4 feet 11 inches, 139 pounds, 28 BMI, 97.9, 76, 145/67. HEAD, EYES, EARS NOSE AND THROAT: Unremarkable. LUNGS: Clear to auscultation. CARDIAC: Regular rate and rhythm without murmur or gallop. ABDOMEN: Soft. The patient has mild tenderness in her left lateral mid upper abdomen. Lower abdomi nal tenderness is not present. EXTREMITIES: Unremarkable. LABORATORY DATA: White count 18, hemoglobin 10.6, basic metabolic profile unremarkable. ASSESSMENT AND PLAN: Radiological signs of diverticulitis. 1 cm focus is of questionable significan ce. I think Zosyn is adequate antibiotic treatment and she probably does not need vancomycin, this c an be discontinued. The patient's diet could be advanced to full liquids. She should have physical therapy and be out of bed frequently. Plan would be to avoid operation if possible. This patient wi th multiple medical problems and on steroids.
[2017-05-30] MEDS: Piperacillin/Tazobactam 4.5 GM in Sodium Chloride 0.9% 100 ML IVPB SCH ×5 (00:14→22:07)
[2017-05-30] MEDS: metroNIDAZOLE 500 MG in Premix Bag 1 BAG IVPB SCH ×4 (00:49→22:05)
[2017-05-30 02:23] LABS: #Eosinphils 0.2 thou/uL (0.0-0.7); #Lymphocytes 2.4 thou/uL (1.20-3.40); #Monocytes 1.1 thou/uL (0.11-0.59); #Neutrophils 5.2 thou/uL (1.40-6.50); %Basophils 0.5 % (0.0-1.0); %Eosinophils 2.2 % (0.0-10.0); %Lymphocytes 27.2 % (21.0-51.0); %Neutrophils 58.2 % (42.0-75.0); Hemoglobin 9.7 g/dL (12.0-16.0); Mean Corpuscular HGB CONC 32.5 g/dL (32.0-36.0); Mean Corpuscular Hemoglobin 30.6 pg (27.0-31.0); Mean Corpuscular Volume 94.3 fl (81.0-99.0); Mean Platelet Volume 6.5 fL (7.4-10.4); Platelet Count 297 thou/uL (130-400); Red Blood Cell (RBC) Count 3.15 mill/uL (4.20-5.40)
[2017-05-30 02:42] LABS: Vancomycin, Trough 21.8 ug/mL
[2017-05-30 02:51] LABS: ALT (SGPT) 8 U/L (8-55); AST (SGOT) 11 U/L (5-34); Albumin 2.5 g/dL (3.4-4.8); Alkaline Phosphatase 41 U/L (40-150); Anion Gap 10 mmol/L (10-20); BUN (Urea Nitrogen) 10 mg/dL (9.8-20.1); Bilirubin, Total 0.7 mg/dL (0.2-1.2); Calc. Creatinine Clearance 78 mL/min (70-130); Calcium 8.7 mg/dL (7.8-10.44); Carbon Dioxide 24 mmol/L (23-31); Chloride 101 mmol/L (98-107); Estimated GFR-MDRD Greater than 90; Globulin 2.2 g/dL (2.4-3.5); Glucose 117 mg/dL (83-110); Magnesium 1.8 mg/dL (1.6-2.6); Phosphorus 2.6 mg/dL (2.3-4.7); Potassium 3.8 mmol/L (3.5-5.1); Protein, Total 4.7 g/dL (6.0-8.3); Sodium 131 mmol/L (136-145)
[2017-05-30] MEDS: Vancomycin HCl 1 GM in Premix Bag 1 BAG IVPB SCH (03:44)
--- NOTE | 2017-05-30 06:19 | CON ---
DATE OF CONSULTATION: 05/29/2017 REASON FOR CONSULTATION: "Diverticulitis." HISTORY OF PRESENT ILLNESS: Ms. Carrera was recently in the hospital from 05/07 to 05/15 with divertic ulitis, improving by CAT scan. She was treated with IV antibiotics, Levaquin and Flagyl. Ultimately , discharged home on Flagyl and Levaquin. We also placed her on mesalamine to see if this may help a s there are some studies that show that it can help with diverticulitis. She had similar episodes in January. At that time, she had no CT scan findings of diverticulitis. With her pain, she underwe nt a colonoscopy to rule out ischemia. There was diverticulosis at that time, but no diverticulitis. A month prior to that; however, in December, she had a bout of diverticulitis. The patient after discharge going to the [facility] for rehabilitation. Patient presents to the [facility] room yesterday complaining of abdominal pain. Apparently at rehabilitation, she contracted fl u and was given Tamiflu, it was until after discharge that she began to have abdominal pain. Present ly today, she is feeling a little better. She feels that she is getting weaker with each hospitaliza tion. She has had no fever, but does report she had chills. She had no diarrhea, in fact, she state s she has not had a bowel movement for a week. She reported some nausea and vomiting and was not abl e to hold any liquids down, but now asked for some soup. She did have an EGD back in January as we ll, which was normal. CAT scan showed mild diverticulitis in the left descending sigmoid colon regio n with possibly a small 1 cm diameter fluid collection, that was really too small to further characte elroy, no air was seen outside the colon. PAST MEDICAL HISTORY: 1. Atrial fibrillation, previous Watchman procedure. 2. Hyperlipidemia. 3. Hyperthyroidism. 4. Hypertension. 5. Sjogren disease. She is on chronic steroids. 6. Osteoarthritis. 7. Stigmata of chronic steroid use with skin, thin parchment-like skin and buffalo hump. PAST SURGICAL HISTORY: hysterectomy, thyroidectomy, recent upper and lower endoscopies as note d above. SOCIAL HISTORY: The patient denies alcohol or tobacco use. MEDICATIONS: Hydralazine, BuSpar, [place] Thyroid, Inderal, clonidine, Tylenol and aspirin. ALLERGIES: AMLODIPINE. FAMILY HISTORY: Noncontributory. REVIEW OF SYSTEMS: As per HPI. PRESENT MEDICATIONS: Maalox, Dulcolax, BuSpar, Catapres, Benadryl, , [facility], Toradol, Flagyl 500 IV q.8 hours., Zosyn, potassium, prednisone 5 mg daily, propranolol 60 mg t.i.d. Thyroid 60 mg charlie y and vancomycin 1 gram. PHYSICAL EXAMINATION: VITAL SIGNS: Temperature 99.2 today, 97.9 presently. Pulse 76, blood pressure 140/67. GENERAL: The patient is resting in bed. She is very frail. Her son is at the bedside. She has got a very thin skin. She has got ecchymoses all up and down her arms. She has got a buffalo hump. Sh e has got erythema and telangiectasias in the face. NECK: Supple. LUNGS: Clear. HEART: Regular rhythm. ABDOMEN: Soft, has mild tenderness in left lower quadrant. There is no rebound. There is no guardi ng. EXTREMITIES: No clubbing, cyanosis or edema. NEUROLOGIC: She is alert and oriented to person, place and time. LABORATORY STUDIES: White count was 18,000 yesterday, 10.6 today. Hemoglobin was 14.6 yesterday and 11.6 today. Platelet count 421 on 05/28. On 05/29, it was 293. Sodium 129, potassium 3.4, bicarbo tico is 21, chloride 99, BUN and creatinine 9 and 0.64. LFTs normal. Phosphorus and magnesium low a t 1.7 and 1.2 replaced. Troponins negative. Albumin 2.6, total protein 5, and lipase 16. ASSESSMENT AND PLAN: 1. Diverticulitis, mild by CAT scan appearance. I am not sure this is the sole etiology, but this i s the third documentation she has had by CAT scan. She had a colonoscopy to ensure this was an ische ivonne colitis. Significant cardiac disease was negative. She is back on antibiotics and I will talk w [facility] General Surgery. She is a very poor surgical candidate, but she has had 3 documented bouts since December and that would be the next treatment as she has essentially failed inpatient IV antibiotics. I am concerned that with her chronic steroid use, she is very high risk for complications including poor wound healing and dehiscence. 2. Hyponatremia, may be related to her chronic steroid use and has component of renal insufficiency issues. 3. Hypotension. She needs stress dose steroids. 4. Congestive heart failure with cardiomegaly on CAT scan. This may have to be looked into further. We will defer to Internal Medicine.
[2017-05-30] MEDS: HYDROcodone/Acetaminophen 5/325 mg Tablet PO PRN ×2 (06:22→14:16)
[2017-05-30] MEDS: busPIRone HCl 5 MG TAB PO SCH (09:01)
[2017-05-30] MEDS: predniSONE 5 MG TAB PO SCH (09:01)
[2017-05-30] MEDS: Mag-Al 1200 mg/1200 mg/30 ML UDCUP PO PRN ×2 (09:01→15:01)
[2017-05-30] MEDS: cloNIDine 0.3 MG TAB PO SCH ×3 (09:02→22:07)
[2017-05-30] MEDS: hydrALAZINE 25 MG TAB PO SCH ×3 (09:02→22:06)
[2017-05-30] MEDS: Propranolol 60 MG TAB PO SCH ×3 (09:03→22:07)
--- NOTE | 2017-05-30 09:32 | PDOC.PN ---
- Subjective Encounter Start Date: 05/30/17 Encounter Start Time: 07:45 pt has diffuse joint pain and skin pain but less abdominal pain, no hematochezia - Objective Resuscitation Status: Resuscitation Status DNR:Do Not Resuscitate MAR Reviewed: Yes Vital Signs & Weight: Vital Signs (12 hours) Temp Pulse Resp BP Pulse Ox 05/30/17 07:30 98.1 F 74 16 118/55 L 99 05/30/17 03:47 97.6 F 74 15 125/58 L 100 05/30/17 00:00 98.1 F 76 18 113/49 L 100 Weight Weight 140 lb 4.8 oz I&O: 05/29/17 05/30/17 05/31/17 06:59 06:59 06:59 Intake Total 1625 Output Total 0 Balance 1625 Result Diagrams: 05/30/17 02:06 05/30/17 02:06 EKG Reviewed by me: Yes Phys Exam - Physical Examination Constitutional: NAD HEENT: PERRLA, moist MMs, sclera anicteric Neck: no JVD, supple Respiratory: no wheezing, no rales, no rhonchi Cardiovascular: RRR, no significant murmur, no rub Gastrointestinal: soft, no distention, positive bowel sounds mild LLQ tenderness Musculoskeletal: no edema, pulses present Neurological: non-focal, normal sensation, moves all 4 limbs Lymphatic: no nodes Psychiatric: normal affect, A&O x 3 Skin: no rash, normal turgor Dx/Plan (1) Acute diverticulitis of intestine Code(s): K57.92 - DVTRCLI OF INTEST, PART UNSP, W/O PERF OR ABSCESS W/O BLEED Status: Acute Comment: complicated, with microabscess/perforation (2) Elevated troponin Code(s): R74.8 - ABNORMAL LEVELS OF OTHER SERUM ENZYMES Status: Acute Comment: demand ischemia (3) Hypercalcemia Code(s): E83.52 - HYPERCALCEMIA Status: Resolved (4) Hypokalemia Code(s): E87.6 - HYPOKALEMIA Status: Resolved (5) Hypomagnesemia Code(s): E83.42 - HYPOMAGNESEMIA Status: Resolved (6) Hyponatremia Code(s): E87.1 - HYPO-OSMOLALITY AND HYPONATREMIA Status: Acute (7) Hypophosphatemia Code(s): E83.39 - OTHER DISORDERS OF PHOSPHORUS METABOLISM Status: Resolved (8) Chronic atrial fibrillation Code(s): I48.2 - CHRONIC ATRIAL FIBRILLATION Status: Chronic Comment: s/p Watchman device (9) Hyperlipidemia Code(s): E78.5 - HYPERLIPIDEMIA, UNSPECIFIED Status: Chronic Qualifiers: (10) Hypertension Code(s): I10 - ESSENTIAL (PRIMARY) HYPERTENSION Status: Chronic Qualifiers: (11) Hypothyroidism Code(s): E03.9 - HYPOTHYROIDISM, UNSPECIFIED Status: Chronic (12) Paroxysmal SVT (supraventricular tachycardia) Code(s): I47.1 - SUPRAVENTRICULAR TACHYCARDIA Status: Chronic (13) Sjogren's syndrome Code(s): M35.00 - SICCA SYNDROME, UNSPECIFIED Status: Chronic - Plan cont current plan of care, continue antibiotics * continue zosyn and flagyl * will treat conservatively with IV antibiotics * as pt is improving, she will not need surgery * medication reviewed as below * symptomatic treatment. * DC Vancomycin * continue IVF * will advance diet slowly and will defer to GI and surgeon Review of Systems - Review of Systems Constitutional: weakness. negative: fever, chills, sweats, malaise, other ENT: negative: Ear Pain, Ear Discharge, Nose Pain, Nose Discharge, Nose Congestion, Mouth Pain, Mouth Swelling, Throat Pain, Throat Swelling, Other Respiratory: negative: Cough, Dry, Shortness of Breath, Hemoptysis, SOB with Excertion, Pleuritic Pain, Sputum, Wheezing Cardiovascular: negative: chest pain, palpitations, orthopnea, paroxysmal nocturnal dyspnea, edema, light headedness, other Gastrointestinal: Abdominal Pain. negative: Nausea, Vomiting, Diarrhea, Constipation, Melena, Hematochezia, Other Genitourinary: negative: Dysuria, Frequency, Incontinence, Hematuria, Retention , Other Musculoskeletal: Hand Pain. negative: Neck Pain, Shoulder Pain, Arm Pain, Back Pain, Leg Pain, Foot Pain, Other Skin: negative: Rash, Lesions, Gamal, Bruising, Other - Medications/Allergies Allergies/Adverse Reactions: Allergies Allergy/AdvReac Type Severity Reaction Status Date / Time amlodipine Allergy "swelled Verified 05/28/17 18:49 in feet and legs" Medications: Current Medications Hydrocodone Bitart/Acetaminophen ([place] 5/325) 1 tab PO Q4H PRN PRN Reason: Moderate Pain (4-6) Last Admin: 05/30/17 06:22 Dose: 1 tab Al Hydroxide/Mg Hydroxide (Maalox) 30 ml PO Q6H PRN PRN Reason: Heartburn or Indigestion Last Admin: 05/30/17 09:01 Dose: 30 ml Albuterol/Ipratropium (Duoneb) 3 ml NEB Q4H PRN PRN Reason: SOB &/or Wheezing Bisacodyl (Dulcolax) 10 mg PO DAILYPRN PRN PRN Reason: Constipation Buspirone HCl (Buspar) 5 mg PO DAILY [facility] Last Admin: 05/30/17 09:01 Dose: 5 mg Clonidine (Catapres) 0.3 mg PO TID [facility] Last Admin: 05/30/17 09:02 Dose: Not Given Diphenhydramine HCl (Benadryl) 25 mg PO Q4H PRN PRN Reason: Itching Fentanyl (Sublimaze) 25 mcg SLOW IVP Q4H PRN PRN Reason: Pain Hydralazine HCl (Apresoline) 10 mg SLOW IVP Q4H PRN PRN Reason: Systolic BP > 180 Hydralazine HCl (Apresoline) 50 mg PO TID [facility] Last Admin: 05/30/17 09:02 Dose: Not Given Piperacillin Sod/Tazobactam (Sod 4.5 gm/ Sodium Chloride) 100 mls @ 200 mls/hr IVPB 0400,1000,1600,2200 [facility] Last Admin: 05/30/17 09:02 Dose: 100 mls Vancomycin HCl 1 gm/ Device 200 mls @ 200 mls/hr IVPB 0300,1500 [facility] Last Admin: 05/30/17 03:44 Dose: 200 mls Metronidazole 500 mg/ Device 100 mls @ 100 mls/hr IVPB Q8HR [facility] Last Admin: 05/30/17 06:25 Dose: 100 mls Potassium Chloride 20 meq/ (Sodium Chloride) 1,010 mls @ 125 mls/hr IV .Q8H5M [facility] Last Admin: 05/30/17 07:49 Dose: Not Given Ketorolac Tromethamine (Toradol) 15 mg IVP Q6H PRN PRN Reason: Pain Stop: 06/03/17 10:57 Nitroglycerin (Nitrostat) 0.4 mg SL Q5MIN PRN PRN Reason: Chest Pain Prednisone (Prednisone) 5 mg PO DAILY [facility] Last Admin: 05/30/17 09:01 Dose: 5 mg Propranolol HCl (Inderal) 60 mg PO TID [facility] Last Admin: 05/30/17 09:03 Dose: Not Given Sodium Chloride (Flush - Normal Saline) 10 ml IVF Q12HR [facility] Last Admin: 05/30/17 09:01 Dose: 10 ml Sodium Chloride (Flush - Normal Saline) 10 ml IVF PRN PRN PRN Reason: Saline Flush Thyroid ([place] Thyroid) 60 mg PO QAM [facility] Last Admin: 05/29/17 10:51 Dose: 60 mg
--- NOTE | 2017-05-30 12:33 | PRG ---
DATE OF SERVICE: 05/30/2017 Ms. Carrera feels much better. PHYSICAL EXAMINATION: VITAL SIGNS: Temperature is 97.9, pulse 79, respirations 18, blood pressure 147/65. ABDOMEN: Soft, nontender, no rebound or guarding. ASSESSMENT: Diverticulitis. Review of her CAT scan last night, there was a very mild amount of inflammation. Continue IV antibio tics for another couple of days and then switch to p.o. She is a very poor surgical candidate. If s he has recurrent symptoms, this can be reconsidered, but I would really try to avoid surgery in this patient. She will need a follow up CAT scan in 4 weeks. If she has no other symptoms to follow up o n the small fluid collection 1 cm in size near the colon. I would advance diet to low residue and add supplements, she needs better nutrition.
[2017-05-30 14:43] LABS: Vancomycin, Trough 25.2 ug/mL
[2017-05-31] MEDS: Piperacillin/Tazobactam 4.5 GM in Sodium Chloride 0.9% 100 ML IVPB SCH (05:16)
[2017-05-31 05:37] LABS: Anion Gap 12 mmol/L (10-20); BUN (Urea Nitrogen) 6 mg/dL (9.8-20.1); Calc. Creatinine Clearance 83 mL/min (70-130); Calcium 8.4 mg/dL (7.8-10.44); Carbon Dioxide 22 mmol/L (23-31); Chloride 104 mmol/L (98-107); Estimated GFR-MDRD Greater than 90; Glucose 87 mg/dL (83-110); Potassium 3.5 mmol/L (3.5-5.1); Sodium 134 mmol/L (136-145)
[2017-05-31] MEDS: metroNIDAZOLE 500 MG TAB PO SCH ×3 (05:59→21:45)
[2017-05-31] MEDS: guaiFENesin/Codeine Phosphate 200 mg/20 mg 10 ml UD Cup PO PRN ×2 (07:19→21:20)
[2017-05-31] MEDS: hydrALAZINE 25 MG TAB PO SCH ×3 (09:06→21:18)
[2017-05-31] MEDS: busPIRone HCl 5 MG TAB PO SCH (09:06)
[2017-05-31] MEDS: Propranolol 60 MG TAB PO SCH ×3 (09:06→21:17)
[2017-05-31] MEDS: cloNIDine 0.3 MG TAB PO SCH ×3 (09:06→21:19)
[2017-05-31] MEDS: predniSONE 5 MG TAB PO SCH (09:06)
[2017-05-31] MEDS: Amoxicillin/Potassium Clav 875 MG TAB PO SCH ×2 (09:06→21:17)
--- NOTE | 2017-05-31 10:41 | PDOC.PN ---
- Subjective Encounter Start Date: 05/31/17 Encounter Start Time: 08:30 Patient seen and examined. No new complaints. No overnight events pt does not want another IV access No abdominal pain, no fever - Objective Resuscitation Status: Resuscitation Status DNR:Do Not Resuscitate MAR Reviewed: Yes Vital Signs & Weight: Vital Signs (12 hours) Temp Pulse Resp BP BP Pulse Ox 05/31/17 07:15 98.5 F 83 18 100 05/31/17 07:10 98.5 F 83 18 160/70 H 100 05/31/17 05:00 84 18 139/63 97 Weight Weight 141 lb 4.8 oz I&O: 05/30/17 05/31/17 06/01/17 06:59 06:59 06:59 Intake Total 837 Output Total 650 Balance 187 Result Diagrams: 05/30/17 02:06 05/31/17 04:29 EKG Reviewed by me: Yes (NSR) Phys Exam - Physical Examination Constitutional: NAD HEENT: PERRLA, moist MMs, sclera anicteric Neck: no JVD, supple Respiratory: no wheezing, no rales, no rhonchi Cardiovascular: RRR, no significant murmur, no rub Gastrointestinal: soft, non-tender, no distention, positive bowel sounds mild LLQ soreness Musculoskeletal: no edema, pulses present Neurological: non-focal, normal sensation, moves all 4 limbs Psychiatric: normal affect, A&O x 3 Skin: no rash, normal turgor Dx/Plan (1) Acute diverticulitis of intestine Code(s): K57.92 - DVTRCLI OF INTEST, PART UNSP, W/O PERF OR ABSCESS W/O BLEED Status: Acute Comment: complicated, with microabscess/perforation (2) Elevated troponin Code(s): R74.8 - ABNORMAL LEVELS OF OTHER SERUM ENZYMES Status: Acute Comment: demand ischemia (3) Hypercalcemia Code(s): E83.52 - HYPERCALCEMIA Status: Resolved (4) Hypokalemia Code(s): E87.6 - HYPOKALEMIA Status: Resolved (5) Hypomagnesemia Code(s): E83.42 - HYPOMAGNESEMIA Status: Resolved (6) Hyponatremia Code(s): E87.1 - HYPO-OSMOLALITY AND HYPONATREMIA Status: Acute (7) Hypophosphatemia Code(s): E83.39 - OTHER DISORDERS OF PHOSPHORUS METABOLISM Status: Resolved (8) Chronic atrial fibrillation Code(s): I48.2 - CHRONIC ATRIAL FIBRILLATION Status: Chronic Comment: s/p Watchman device (9) Hyperlipidemia Code(s): E78.5 - HYPERLIPIDEMIA, UNSPECIFIED Status: Chronic Qualifiers: (10) Hypertension Code(s): I10 - ESSENTIAL (PRIMARY) HYPERTENSION Status: Chronic Qualifiers: (11) Hypothyroidism Code(s): E03.9 - HYPOTHYROIDISM, UNSPECIFIED Status: Chronic (12) Paroxysmal SVT (supraventricular tachycardia) Code(s): I47.1 - SUPRAVENTRICULAR TACHYCARDIA Status: Chronic (13) Sjogren's syndrome Code(s): M35.00 - SICCA SYNDROME, UNSPECIFIED Status: Chronic - Plan cont current plan of care, continue antibiotics * will change to augmentin 875 mg po bid * continue flagyl * pt needs SNU placement * medication reviewed as below * symptomatic treatment * DC tele * transfer to medical. Review of Systems - Review of Systems Constitutional: weakness. negative: fever, chills, sweats, malaise, other ENT: negative: Ear Pain, Ear Discharge, Nose Pain, Nose Discharge, Nose Congestion, Mouth Pain, Mouth Swelling, Throat Pain, Throat Swelling, Other Respiratory: negative: Cough, Dry, Shortness of Breath, Hemoptysis, SOB with Excertion, Pleuritic Pain, Sputum, Wheezing Cardiovascular: negative: chest pain, palpitations, orthopnea, paroxysmal nocturnal dyspnea, edema, light headedness, other Gastrointestinal: negative: Nausea, Vomiting, Abdominal Pain, Diarrhea, Constipation, Melena, Hematochezia, Other Genitourinary: negative: Dysuria, Frequency, Incontinence, Hematuria, Retention , Other Musculoskeletal: negative: Neck Pain, Shoulder Pain, Arm Pain, Back Pain, Hand Pain, Leg Pain, Foot Pain, Other Skin: negative: Rash, Lesions, Gamal, Bruising, Other - Medications/Allergies Allergies/Adverse Reactions: Allergies Allergy/AdvReac Type Severity Reaction Status Date / Time amlodipine Allergy "swelled Verified 05/28/17 18:49 in feet and legs" Medications: Current Medications Hydrocodone Bitart/Acetaminophen ([place] 5/325) 1 tab PO Q4H PRN PRN Reason: Moderate Pain (4-6) Last Admin: 05/30/17 14:16 Dose: 1 tab Al Hydroxide/Mg Hydroxide (Maalox) 30 ml PO Q6H PRN PRN Reason: Heartburn or Indigestion Last Admin: 05/30/17 15:01 Dose: 30 ml Albuterol/Ipratropium (Duoneb) 3 ml NEB Q4H PRN PRN Reason: SOB &/or Wheezing Amoxicillin/Clavulanate Potassium (Augmentin) 875 mg PO Q12HR [facility] Last Admin: 05/31/17 09:06 Dose: 875 mg Bisacodyl (Dulcolax) 10 mg PO DAILYPRN PRN PRN Reason: Constipation Buspirone HCl (Buspar) 5 mg PO DAILY [facility] Last Admin: 05/31/17 09:06 Dose: 5 mg Clonidine (Catapres) 0.3 mg PO TID [facility] Last Admin: 05/31/17 09:06 Dose: 0.3 mg Diphenhydramine HCl (Benadryl) 25 mg PO Q4H PRN PRN Reason: Itching Fentanyl (Sublimaze) 25 mcg SLOW IVP Q4H PRN PRN Reason: Pain Guaifenesin/Codeine Phosphate (Robitussin Ac) 10 ml PO Q6H PRN PRN Reason: Cough Last Admin: 05/31/17 07:19 Dose: 10 ml Hydralazine HCl (Apresoline) 10 mg SLOW IVP Q4H PRN PRN Reason: Systolic BP > 180 Hydralazine HCl (Apresoline) 50 mg PO TID [facility] Last Admin: 05/31/17 09:06 Dose: 50 mg Metronidazole (Flagyl) 500 mg PO Q8HR [facility] Last Admin: 05/31/17 05:59 Dose: 500 mg Nitroglycerin (Nitrostat) 0.4 mg SL Q5MIN PRN PRN Reason: Chest Pain Prednisone (Prednisone) 5 mg PO DAILY [facility] Last Admin: 05/31/17 09:06 Dose: 5 mg Propranolol HCl (Inderal) 60 mg PO TID [facility] Last Admin: 05/31/17 09:06 Dose: 60 mg Sodium Chloride (Flush - Normal Saline) 10 ml IVF Q12HR [facility] Last Admin: 05/31/17 09:07 Dose: 10 ml Sodium Chloride (Flush - Normal Saline) 10 ml IVF PRN PRN PRN Reason: Saline Flush Thyroid ([facility] Thyroid) 60 mg PO QAM [facility] Last Admin: 05/31/17 10:13 Dose: 60 mg
--- NOTE | 2017-05-31 12:28 | PRG ---
DATE OF SERVICE: 05/31/2017 Ms. Carrera has been moved off the telemetry floor. She is somewhat better, but then had some lower cr amping and a few loose stools which worried her. This was after eating. This was after her antibiot ics were changed, she was switched to amoxicillin this morning. She was switched also to p.o. Flagyl this morning. PHYSICAL EXAMINATION: GENERAL: She is resting in bed. She is in no distress. VITAL SIGNS: Temperature is 98, pulse 83, blood pressure 160/70. ABDOMEN: Very minimal left lower quadrant tenderness. She has no rebound, no guarding. Bowel sound s are positive. SKIN: There is ecchymosis of the skin, frail skin, buffalo hump and cushingoid appearance. ASSESSMENT: 1. Recurrent diverticulitis. A CAT scan was very mild, it had some inflammatory changes on this adm ission. It is unclear how much of illness that precipitated readmission was related to recurrent div erticulitis versus the flu that she had when she was at rehab. 2. Steroid dependence, chronic use. RECOMMENDATIONS: I agree with changing to oral antibiotics. We will check a C. diff toxin as she be s had a little bit of diarrhea. Continue low fiber diet. Agree with surgeon's opinion at this time they would prefer to defer any surgery even though she has had recurrent episodes of diverticulitis b ased on a very high risk of complications and her rapid response to medical therapy this admission.
[2017-06-01] MEDS: HYDROcodone/Acetaminophen 5/325 mg Tablet PO PRN (00:59)
[2017-06-01] MEDS: metroNIDAZOLE 500 MG TAB PO SCH ×2 (05:07→14:56)
[2017-06-01 05:22] LABS: #Basophils 0.1 thou/uL (0.0-0.2); #Eosinphils 0.3 thou/uL (0.0-0.7); #Lymphocytes 3.8 thou/uL (1.20-3.40); #Neutrophils 6.4 thou/uL (1.40-6.50); %Basophils 0.5 % (0.0-1.0); %Eosinophils 2.2 % (0.0-10.0); %Lymphocytes 32.9 % (21.0-51.0); %Neutrophils 55.4 % (42.0-75.0); Hemoglobin 11.3 g/dL (12.0-16.0); Mean Corpuscular HGB CONC 33.7 g/dL (32.0-36.0); Mean Corpuscular Hemoglobin 32.2 pg (27.0-31.0); Mean Corpuscular Volume 95.4 fl (81.0-99.0); Platelet Count 434 thou/uL (130-400); Red Blood Cell (RBC) Count 3.51 mill/uL (4.20-5.40); White Blood Cell (WBC) Count 11.6 thou/uL (4.8-10.8)
[2017-06-01 05:43] LABS: Anion Gap 13 mmol/L (10-20); BUN (Urea Nitrogen) 4 mg/dL (9.8-20.1); Calc. Creatinine Clearance 86 mL/min (70-130); Calcium 9.5 mg/dL (7.8-10.44); Carbon Dioxide 22 mmol/L (23-31); Chloride 102 mmol/L (98-107); Estimated GFR-MDRD Greater than 90; Glucose 89 mg/dL (83-110); Sodium 133 mmol/L (136-145)
[2017-06-01] MEDS: busPIRone HCl 5 MG TAB PO SCH (08:32)
[2017-06-01] MEDS: predniSONE 5 MG TAB PO SCH (08:32)
[2017-06-01] MEDS: hydrALAZINE 25 MG TAB PO SCH ×3 (08:33→21:38)
[2017-06-01] MEDS: Propranolol 60 MG TAB PO SCH ×3 (08:33→21:37)
[2017-06-01] MEDS: cloNIDine 0.3 MG TAB PO SCH ×3 (08:33→21:39)
[2017-06-01] MEDS: Amoxicillin/Potassium Clav 875 MG TAB PO SCH ×2 (08:33→21:39)
[2017-06-01] MEDS: guaiFENesin/Codeine Phosphate 200 mg/20 mg 10 ml UD Cup PO PRN ×2 (08:42→21:47)
--- NOTE | 2017-06-01 11:14 | PDOC.PN ---
- Subjective Encounter Start Date: 06/01/17 Encounter Start Time: 08:10 Patient seen and examined. No new complaints. No overnight events - Objective Resuscitation Status: Resuscitation Status DNR:Do Not Resuscitate MAR Reviewed: Yes Vital Signs & Weight: Vital Signs (12 hours) Temp Pulse Resp BP BP Pulse Ox 06/01/17 08:33 80 115/68 06/01/17 08:00 97.2 F L 80 16 152/75 H 94 L 06/01/17 04:18 98.3 F 83 18 135/74 93 L 05/31/17 23:49 98.5 F 81 16 113/67 94 L Weight Weight 141 lb 4.8 oz I&O: 05/31/17 06/01/17 06/02/17 06:59 06:59 06:59 Intake Total 837 500 Output Total 650 Balance 187 500 Result Diagrams: 06/01/17 04:24 06/01/17 04:24 Phys Exam - Physical Examination Constitutional: NAD HEENT: PERRLA, moist MMs, sclera anicteric Neck: no JVD, supple Respiratory: no wheezing, no rales, no rhonchi Cardiovascular: RRR, no significant murmur, no rub Gastrointestinal: soft, non-tender, no distention, positive bowel sounds Musculoskeletal: no edema, pulses present Neurological: non-focal, normal sensation, moves all 4 limbs Psychiatric: normal affect, A&O x 3 Skin: no rash, normal turgor Dx/Plan (1) Acute diverticulitis of intestine Code(s): K57.92 - DVTRCLI OF INTEST, PART UNSP, W/O PERF OR ABSCESS W/O BLEED Status: Acute Comment: complicated, with microabscess/perforation (2) Elevated troponin Code(s): R74.8 - ABNORMAL LEVELS OF OTHER SERUM ENZYMES Status: Acute Comment: demand ischemia (3) Hypercalcemia Code(s): E83.52 - HYPERCALCEMIA Status: Resolved (4) Hypokalemia Code(s): E87.6 - HYPOKALEMIA Status: Resolved (5) Hypomagnesemia Code(s): E83.42 - HYPOMAGNESEMIA Status: Resolved (6) Hyponatremia Code(s): E87.1 - HYPO-OSMOLALITY AND HYPONATREMIA Status: Acute (7) Hypophosphatemia Code(s): E83.39 - OTHER DISORDERS OF PHOSPHORUS METABOLISM Status: Resolved (8) Chronic atrial fibrillation Code(s): I48.2 - CHRONIC ATRIAL FIBRILLATION Status: Chronic Comment: s/p Watchman device (9) Hyperlipidemia Code(s): E78.5 - HYPERLIPIDEMIA, UNSPECIFIED Status: Chronic Qualifiers: (10) Hypertension Code(s): I10 - ESSENTIAL (PRIMARY) HYPERTENSION Status: Chronic Qualifiers: (11) Hypothyroidism Code(s): E03.9 - HYPOTHYROIDISM, UNSPECIFIED Status: Chronic (12) Paroxysmal SVT (supraventricular tachycardia) Code(s): I47.1 - SUPRAVENTRICULAR TACHYCARDIA Status: Chronic (13) Sjogren's syndrome Code(s): M35.00 - SICCA SYNDROME, UNSPECIFIED Status: Chronic - Plan cont current plan of care, continue antibiotics, psych social worker * continue augmentin and flagyl * await placement to SNU * medication reviewed as below * symptomatic treatment * stable otherwise. Review of Systems - Review of Systems ENT: negative: Ear Pain, Ear Discharge, Nose Pain, Nose Discharge, Nose Congestion, Mouth Pain, Mouth Swelling, Throat Pain, Throat Swelling, Other Respiratory: negative: Cough, Dry, Shortness of Breath, Hemoptysis, SOB with Excertion, Pleuritic Pain, Sputum, Wheezing Cardiovascular: negative: chest pain, palpitations, orthopnea, paroxysmal nocturnal dyspnea, edema, light headedness, other Gastrointestinal: negative: Nausea, Vomiting, Abdominal Pain, Diarrhea, Constipation, Melena, Hematochezia, Other Genitourinary: negative: Dysuria, Frequency, Incontinence, Hematuria, Retention , Other Musculoskeletal: negative: Neck Pain, Shoulder Pain, Arm Pain, Back Pain, Hand Pain, Leg Pain, Foot Pain, Other Skin: negative: Rash, Lesions, Gamal, Bruising, Other - Medications/Allergies Allergies/Adverse Reactions: Allergies Allergy/AdvReac Type Severity Reaction Status Date / Time amlodipine Allergy "swelled Verified 05/28/17 18:49 in feet and legs" Medications: Current Medications Hydrocodone Bitart/Acetaminophen ([place] 5/325) 1 tab PO Q4H PRN PRN Reason: Moderate Pain (4-6) Last Admin: 06/01/17 00:59 Dose: 1 tab Al Hydroxide/Mg Hydroxide (Maalox) 30 ml PO Q6H PRN PRN Reason: Heartburn or Indigestion Last Admin: 05/30/17 15:01 Dose: 30 ml Albuterol/Ipratropium (Duoneb) 3 ml NEB Q4H PRN PRN Reason: SOB &/or Wheezing Amoxicillin/Clavulanate Potassium (Augmentin) 875 mg PO Q12HR [facility] Last Admin: 06/01/17 08:33 Dose: 875 mg Bisacodyl (Dulcolax) 10 mg PO DAILYPRN PRN PRN Reason: Constipation Buspirone HCl (Buspar) 5 mg PO DAILY [facility] Last Admin: 06/01/17 08:32 Dose: 5 mg Clonidine (Catapres) 0.3 mg PO TID [facility] Last Admin: 06/01/17 08:33 Dose: 0.3 mg Diphenhydramine HCl (Benadryl) 25 mg PO Q4H PRN PRN Reason: Itching Last Admin: 06/01/17 04:31 Dose: 25 mg Fentanyl (Sublimaze) 25 mcg SLOW IVP Q4H PRN PRN Reason: Pain Guaifenesin/Codeine Phosphate (Robitussin Ac) 10 ml PO Q6H PRN PRN Reason: Cough Last Admin: 06/01/17 08:42 Dose: 10 ml Hydralazine HCl (Apresoline) 10 mg SLOW IVP Q4H PRN PRN Reason: Systolic BP > 180 Hydralazine HCl (Apresoline) 50 mg PO TID [facility] Last Admin: 06/01/17 08:33 Dose: 50 mg Metronidazole (Flagyl) 500 mg PO Q8HR [facility] Last Admin: 06/01/17 05:07 Dose: 500 mg Nitroglycerin (Nitrostat) 0.4 mg SL Q5MIN PRN PRN Reason: Chest Pain Prednisone (Prednisone) 5 mg PO DAILY [facility] Last Admin: 06/01/17 08:32 Dose: 5 mg Propranolol HCl (Inderal) 60 mg PO TID [facility] Last Admin: 06/01/17 08:33 Dose: 60 mg Sodium Chloride (Flush - Normal Saline) 10 ml IVF Q12HR [facility] Last Admin: 06/01/17 08:46 Dose: 10 ml Sodium Chloride (Flush - Normal Saline) 10 ml IVF PRN PRN PRN Reason: Saline Flush Thyroid ([place] Thyroid) 60 mg PO QAM [facility] Last Admin: 06/01/17 08:32 Dose: 60 mg
--- NOTE | 2017-06-01 15:45 | DIS ---
DATE OF ADMISSION: 05/28/2017 DATE OF DISCHARGE: 06/01/2017 PRIMARY CARE PHYSICIAN: Dr. Leif Tim. DISCHARGE DISPOSITION: [facility] unit. PRIMARY DISCHARGE DIAGNOSES: Acute diverticulitis of intestine, demand ischemia of myocardium, hyponatremia, hypercalcemia, hypokalemia, hypomagnesemia , hypophosphatemia, and physical weakness. SECONDARY DISCHARGE DIAGNOSES: Chronic atrial fibrillation, dyslipidemia, hypertension, hypothyroidism, paroxysmal SVT, Sjogren's syndrome, hypothyroidism. PRIMARY PROCEDURE/OPERATION: None. RADIOLOGICAL INVESTIGATION: Chest x-ray normal. Abdomen and pelvis CT scan showed diverticulitis of the left colon with confined fluid collection, possibly very tiny abscess. SIGNIFICANT LABORATORY DATA: WBC 11.6, hemoglobin 11.3, platelets 434. INR 1.1. Sodium 133, potassium 4.0, BUN 4, creatinine 0.56, calcium 9.5. LFTs normal. Urinalysis unremarkable. DISCHARGE MEDICATIONS: Tylenol 650 mg p.o. q.4 hourly p.r.n., Maalox 30 mL p.o. q.6 hourly p.r.n., Augmentin 875 mg twice daily for 10 more days, aspirin 81 mg p.o. daily, Buspirone 10 mg p.o. daily, clonidine 0.3 mg p.o. t.i.d., hydralazine 50 mg t.i.d., mesalamine 800 mg p.o. t.i.d., Flagyl 500 mg p.o. q.8 hourly for 10 days, Inderal 60 mg p.o. t.i.d., Florastor 250 mg p.o. daily for 10 days, [place] Thyroid 60 mg p.o. daily. CONTRAINDICATIONS: None. CODE STATUS: DNR. INPATIENT CONSULTANTS: Dr. Chua was consulted for complicated diverticulitis and he recommended conservative therapy and Dr. Tello was consulted and he was following while in hospital. TEST RESULTS PENDING ON DISCHARGE: None. ALLERGIES: AMLODIPINE. DISCHARGE PLAN: Post hospital, the patient is discharged to senior care home for PT, OT, and subsequently the patient will follow up with Dr. Chua, Dr. Tello, and primary care physician. HOSPITAL COURSE: A 76-year-old female with above-mentioned medical problem who was admitted by Dr. Wing. Please see his H&P for further details. This patient was having left lower quadrant abdominal pain. She had CT of the abdomen and pelvis in the emergency room which showed findings suggestive of left-sided diverticulitis with tiny abscess. That abscess was very difficult to drain for percutaneous drainage. The patient was admitted to telemetry floor because of elevated troponin. Her troponin was elevated because of demand ischemia. On admission, she had abnormal electrolytes including hyponatremia, hypercalcemia, hypokalemia, hypophosphatemia, hypomagnesemia, all abnormal electrolytes were replaced and corrected. Subsequently, the patient remained in sinus rhythm. She did not have any chest pain or any cardiac symptoms and that is why we discontinued the radiation monitor and transferred her to medical floor. The patient was having generalized weakness and that is why she was interested in going to senior care home. With the help of mattress spring encaser, we arranged senior care home. While in hospital, she was treated with Zosyn and Flagyl. Upon discharge, we changed to Augmentin and Flagyl. The patient will finish complete course of therapy for a total 2 weeks and subsequently she will follow up with Dr. Chua and Dr. Tello. At that point, the patient will need repeat imaging. This patient is too fragile for going for any kind of surgical intervention and that is why during this admission, the patient was treated medically. She was DNR while in hospital. Paper work for discharge done. ANISA
--- NOTE | 2017-06-01 18:24 | PRG ---
DATE OF SERVICE: 06/01/2017 SUBJECTIVE: Ms. Carrera says she is feeling better. She has had very metallic taste in her mouth with the Flagyl and some cramps. OBJECTIVE: VITAL SIGNS: Temperature is 98, pulse 85, blood pressure 153/74. LUNGS: Clear. CARDIAC: Heart regular without clicks or murmurs. ABDOMEN: Soft, mild tenderness in left lower quadrant. LABORATORY STUDIES: White count 11.6, hemoglobin 11.3, platelet count 434. ASSESSMENT: 1. Diverticulitis, improving on oral antibiotics. 2. Some loose stool yesterday, clostridium difficile was ordered but not done. The patient states i t kind of gone away. 3. Slight thrombocytosis this point in time. 4. Slight hyponatremia. PLAN: Continue antibiotics. We are going to stop the metronidazole, seems like it was giving her si gnificant side effects. We will place her on a probiotic and will follow up on her tomorrow, it soun ds like she may be going to detention sooner and that is fine too.
[2017-06-02] MEDS: Amoxicillin/Potassium Clav 875 MG TAB PO SCH (08:23)
[2017-06-02] MEDS: Propranolol 60 MG TAB PO SCH (08:23)
[2017-06-02] MEDS: predniSONE 5 MG TAB PO SCH (08:23)
[2017-06-02] MEDS: cloNIDine 0.3 MG TAB PO SCH (08:23)
[2017-06-02] MEDS: busPIRone HCl 5 MG TAB PO SCH (08:24)
[2017-06-02] MEDS: hydrALAZINE 25 MG TAB PO SCH (08:24)
[2017-06-02] MEDS ORDERED: Saccharomyces boulardii 250 MG CAP PO SCH (09:00)
--- NOTE | 2017-06-02 09:28 | DIS ---
This patient was planned for discharge to intermediate home yesterday. Please see my discharge s rowan dictated yesterday for further details. Unfortunately, they did not accept later on and that is why she is planned for discharge today. This patient has continued to improve her left lower quad rant pain. She has only vague discomfort in both sides which she attributes due to episode of coughi ng. At this point, we are considering discharging her on Augmentin and Flagyl and she will follow up with Dr. Tello or Dr. Chua as an outpatient basis for repeat imaging. The patient is seen and examined at bedside today. Please see my progress note from today for furthe r details.
--- NOTE | 2017-06-02 09:41 | PDOC.PN ---
- Subjective Encounter Start Date: 06/02/17 Encounter Start Time: 07:20 Patient seen and examined. No new complaints. No overnight events - Objective Resuscitation Status: Resuscitation Status DNR:Do Not Resuscitate MAR Reviewed: Yes Vital Signs & Weight: Vital Signs (12 hours) Temp Pulse Resp BP BP Pulse Ox 06/02/17 08:24 79 06/02/17 08:23 146/72 H 06/02/17 08:00 98.4 F 79 14 06/02/17 07:26 98.4 F 79 14 157/85 H 94 L 06/02/17 04:42 98.0 F 73 18 123/66 93 L 06/02/17 00:48 98.3 F 73 18 135/62 93 L 06/01/17 21:44 98.4 F 81 18 146/72 H 94 L Weight Weight 141 lb 4.8 oz I&O: 06/01/17 06/02/17 06/03/17 06:59 06:59 06:59 Intake Total 500 1100 200 Balance 500 1100 200 Result Diagrams: 06/01/17 04:24 06/01/17 04:24 Phys Exam - Physical Examination Constitutional: NAD HEENT: PERRLA, moist MMs, sclera anicteric Neck: no JVD, supple Respiratory: no wheezing, no rales, no rhonchi Cardiovascular: RRR, no significant murmur, no rub Gastrointestinal: soft, non-tender, no distention, positive bowel sounds mild lower abdomen soreness Musculoskeletal: no edema, pulses present Neurological: non-focal, normal sensation, moves all 4 limbs Lymphatic: no nodes Psychiatric: normal affect, A&O x 3 Skin: no rash, normal turgor Dx/Plan (1) Acute diverticulitis of intestine Code(s): K57.92 - DVTRCLI OF INTEST, PART UNSP, W/O PERF OR ABSCESS W/O BLEED Status: Acute Comment: complicated, with microabscess/perforation (2) Elevated troponin Code(s): R74.8 - ABNORMAL LEVELS OF OTHER SERUM ENZYMES Status: Acute Comment: demand ischemia (3) Hypercalcemia Code(s): E83.52 - HYPERCALCEMIA Status: Resolved (4) Hypokalemia Code(s): E87.6 - HYPOKALEMIA Status: Resolved (5) Hypomagnesemia Code(s): E83.42 - HYPOMAGNESEMIA Status: Resolved (6) Hyponatremia Code(s): E87.1 - HYPO-OSMOLALITY AND HYPONATREMIA Status: Acute (7) Hypophosphatemia Code(s): E83.39 - OTHER DISORDERS OF PHOSPHORUS METABOLISM Status: Resolved (8) Chronic atrial fibrillation Code(s): I48.2 - CHRONIC ATRIAL FIBRILLATION Status: Chronic Comment: s/p Watchman device (9) Hyperlipidemia Code(s): E78.5 - HYPERLIPIDEMIA, UNSPECIFIED Status: Chronic Qualifiers: (10) Hypertension Code(s): I10 - ESSENTIAL (PRIMARY) HYPERTENSION Status: Chronic Qualifiers: (11) Hypothyroidism Code(s): E03.9 - HYPOTHYROIDISM, UNSPECIFIED Status: Chronic (12) Paroxysmal SVT (supraventricular tachycardia) Code(s): I47.1 - SUPRAVENTRICULAR TACHYCARDIA Status: Chronic (13) Sjogren's syndrome Code(s): M35.00 - SICCA SYNDROME, UNSPECIFIED Status: Chronic - Plan cont current plan of care, 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 Review of Systems - Review of Systems ENT: negative: Ear Pain, Ear Discharge, Nose Pain, Nose Discharge, Nose Congestion, Mouth Pain, Mouth Swelling, Throat Pain, Throat Swelling, Other Respiratory: Cough. negative: Dry, Shortness of Breath, Hemoptysis, SOB with Excertion, Pleuritic Pain, Sputum, Wheezing Cardiovascular: negative: chest pain, palpitations, orthopnea, paroxysmal nocturnal dyspnea, edema, light headedness, other Gastrointestinal: negative: Nausea, Vomiting, Abdominal Pain, Diarrhea, Constipation, Melena, Hematochezia, Other Genitourinary: negative: Dysuria, Frequency, Incontinence, Hematuria, Retention , Other Musculoskeletal: negative: Neck Pain, Shoulder Pain, Arm Pain, Back Pain, Hand Pain, Leg Pain, Foot Pain, Other Skin: negative: Rash, Lesions, Gamal, Bruising, Other - Medications/Allergies Allergies/Adverse Reactions: Allergies Allergy/AdvReac Type Severity Reaction Status Date / Time amlodipine Allergy "swelled Verified 05/28/17 18:49 in feet and legs" Medications: Current Medications Hydrocodone Bitart/Acetaminophen ([place] 5/325) 1 tab PO Q4H PRN PRN Reason: Moderate Pain (4-6) Last Admin: 06/01/17 00:59 Dose: 1 tab Al Hydroxide/Mg Hydroxide (Maalox) 30 ml PO Q6H PRN PRN Reason: Heartburn or Indigestion Last Admin: 05/30/17 15:01 Dose: 30 ml Albuterol/Ipratropium (Duoneb) 3 ml NEB Q4H PRN PRN Reason: SOB &/or Wheezing Amoxicillin/Clavulanate Potassium (Augmentin) 875 mg PO Q12HR [facility] Last Admin: 06/02/17 08:23 Dose: 875 mg Bisacodyl (Dulcolax) 10 mg PO DAILYPRN PRN PRN Reason: Constipation Buspirone HCl (Buspar) 5 mg PO DAILY [facility] Last Admin: 06/02/17 08:24 Dose: 5 mg Clonidine (Catapres) 0.3 mg PO TID [facility] Last Admin: 06/02/17 08:23 Dose: 0.3 mg Diphenhydramine HCl (Benadryl) 25 mg PO Q4H PRN PRN Reason: Itching Last Admin: 06/01/17 04:31 Dose: 25 mg Fentanyl (Sublimaze) 25 mcg SLOW IVP Q4H PRN PRN Reason: Pain Guaifenesin/Codeine Phosphate (Robitussin Ac) 10 ml PO Q6H PRN PRN Reason: Cough Last Admin: 06/01/17 21:47 Dose: 10 ml Hydralazine HCl (Apresoline) 10 mg SLOW IVP Q4H PRN PRN Reason: Systolic BP > 180 Hydralazine HCl (Apresoline) 50 mg PO TID [facility] Last Admin: 06/02/17 08:24 Dose: 50 mg Nitroglycerin (Nitrostat) 0.4 mg SL Q5MIN PRN PRN Reason: Chest Pain Prednisone (Prednisone) 5 mg PO DAILY [facility] Last Admin: 06/02/17 08:23 Dose: 5 mg Propranolol HCl (Inderal) 60 mg PO TID [facility] Last Admin: 06/02/17 08:23 Dose: 60 mg Saccharomyces Boulardii (Florastor) 250 mg PO DAILY [facility] Last Admin: 06/02/17 08:24 Dose: 250 mg Sodium Chloride (Flush - Normal Saline) 10 ml IVF Q12HR [facility] Last Admin: 06/02/17 08:24 Dose: Not Given Sodium Chloride (Flush - Normal Saline) 10 ml IVF PRN PRN PRN Reason: Saline Flush Thyroid ([place] Thyroid) 60 mg PO QAM [facility] Last Admin: 06/02/17 08:24 Dose: 60 mg
[2017-06-02 11:59] VITALS: BP 106/67; TEMP 98.2
== END 2017-06-02 12:11 | DRG 392 ==
LOC: ERS 11:19 → 2NO 15:58 → SJJU 05-31 09:52
PROVIDERS: ADMIT Hospitalist; ATTEND Hospitalist
DX: K57.20 Diverticulitis of large intestine with perforation and abscess without bleeding (principal); I24.8 Other forms of acute ischemic heart disease; I95.9 Hypotension, unspecified; I11.0 Hypertensive heart disease with heart failure; E83.52 Hypercalcemia; E83.42 Hypomagnesemia; E83.39 Other disorders of phosphorus metabolism; I48.2 Chronic atrial fibrillation; I47.1 Supraventricular tachycardia; E87.1 Hypo-osmolality and hyponatremia; E86.1 Hypovolemia; Z66 Do not resuscitate; E87.6 Hypokalemia; E78.5 Hyperlipidemia, unspecified; E86.0 Dehydration; E03.9 Hypothyroidism, unspecified; M35.00 Sjogren syndrome, unspecified; T38.0X5S Adverse effect of glucocorticoids and synthetic analogues, sequela; Z79.52 Long term (current) use of systemic steroids; D47.3 Essential (hemorrhagic) thrombocythemia
CPT/HCPCS: 36415; 71045; 74177; 80048; 80053; 80202; 81003; 81015; 82553; 83690; 83735; 84100; 84484; 85025; 85610; 85730; 87324; 87449; 93005; 93306; 94760; 96361; 96365; 96375; A4216; G8978-GP-CM; G8979-GP-CI; G8987-GO-CM; G8988-GO-CJ; J2270; J2405; J2543; J3370; J3475; J3480; J7050

== ENCOUNTER 2017-06-09 12:23 | Inpatient (IN) | payer MEDICARE, BC ==
[2017-06-09] MEDS ORDERED: hydrALAZINE 20 MG/ML VIAL ONE (13:17)
[2017-06-09] MEDS ORDERED: Ondansetron HCl/PF 4 MG/2 ML Vial ONE (13:17)
[2017-06-09 13:28] LABS: #Eosinphils 0.5 thou/uL (0.0-0.7); #Lymphocytes 3.1 thou/uL (1.20-3.40); #Monocytes 1.1 thou/uL (0.11-0.59); #Neutrophils 4.5 thou/uL (1.40-6.50); %Basophils 0.5 % (0.0-1.0); %Eosinophils 5.4 % (0.0-10.0); %Lymphocytes 33.2 % (21.0-51.0); %Monocytes 11.7 % (0.0-10.0); %Neutrophils 49.1 % (42.0-75.0); Hemoglobin 12.3 g/dL (12.0-16.0); Mean Corpuscular HGB CONC 33.2 g/dL (32.0-36.0); Mean Corpuscular Hemoglobin 31.5 pg (27.0-31.0); Mean Platelet Volume 6.7 fL (7.4-10.4); Platelet Count 405 thou/uL (130-400); RBC Distribution Width 14.2 % (11.5-14.5); Red Blood Cell (RBC) Count 3.91 mill/uL (4.20-5.40); White Blood Cell (WBC) Count 9.2 thou/uL (4.8-10.8)
[2017-06-09 13:51] LABS: ALT (SGPT) 7 U/L (8-55); AST (SGOT) 21 U/L (5-34); Albumin 2.9 g/dL (3.4-4.8); Alkaline Phosphatase 60 U/L (40-150); Anion Gap 13 mmol/L (10-20); BUN (Urea Nitrogen) 7 mg/dL (9.8-20.1); Bilirubin, Total 0.4 mg/dL (0.2-1.2); CK (CPK) 22 U/L (29-168); Calc. Creatinine Clearance 0 mL/min (70-130); Calcium 11.1 mg/dL (7.8-10.44); Carbon Dioxide 23 mmol/L (23-31); Chloride 98 mmol/L (98-107); Estimated GFR-MDRD 69; Globulin 3.3 g/dL (2.4-3.5); Glucose 108 mg/dL (83-110); Protein, Total 6.2 g/dL (6.0-8.3); Sodium 130 mmol/L (136-145)
[2017-06-09 13:56] LABS: CKMB 2.2 ng/mL (0-6.6); Troponin I 0.021 ng/mL (< 0.028)
[2017-06-09] MEDS ORDERED: ISOVUE-370 76%-LOCM 1 ML ONE (14:15)
[2017-06-09] MEDS ORDERED: Lorazepam 2 MG/ML VIAL ONE (14:28)
[2017-06-09] MEDS ORDERED: Labetalol HCl 100 MG/20 ML VIAL ONE (14:30)
--- NOTE | 2017-06-09 14:46 | CT ---
CT OF THE ABDOMEN AND PELVIS WITH IV CONTRAST: INDICATION: Left lower quadrant abdominal pain. FINDINGS: There are opacities within the left lower lobe suspicious for developing pneumonia. There is a tiny left pleural effusion. No focal hepatic lesion is evident. The gallbladder is surgically absent. Adrenal glands and pancreas appear within normal limits. There are calcified granuloma in the spleen . No focal renal lesion is evident. There are prominent calcifications noted involving the abdomino pelvic vasculature. There is some wall thickening and pericolonic inflammatory stranding involving the descending colon-s igmoid colon junction on image 54 of series 2. There is some slight nodularity seen within the left pericolonic gutter which may relate to scarring from prior diverticulitis that is seen on 05/07/17. No definite drainable fluid collection is evident. The bladder, rectum, and perirectal soft tissues are unremarkable. Muscular atrophy of the hip girdle musculature is similar-appearing. There is dif fuse osteopenia. There is stable compression abnormality of the vertebroplasty change involving the thoracolumbar spine. No definite acute osseous abnormality is evident. IMPRESSION: 1. Findings suspicious for a focal area of noncomplicated diverticulitis involving the descending co celsa and sigmoid colon junction. 2. There is slight nodularity seen adjacent to the descending colon within the left pericolonic gutt er on image 40 of series 2 which may reflect some scarring from the patient's previous documented hcance e of diverticulitis on 05/07/17. A followup CT examination in 3 months is recommended to document re solution of this nodularity. 3. Left lower lobe pneumonia. 4. Small pericardial effusion. 5. Cholecystectomy. 6. Findings of prior granulomatous disease. 7. Other chronic findings as above. POS: [facility]
[2017-06-09] MEDS ORDERED: Piperacillin/Tazobactam 3.375 GM in Sodium Chloride 0.9% 100 ML IVPB SCH (15:45)
[2017-06-09] MEDS ORDERED: Albuterol Sulfate 2.5 mg/3 ml Neb NEB PRN (16:30)
[2017-06-09] MEDS ORDERED: Bisacodyl 5 MG TAB PO PRN (16:53)
[2017-06-09] MEDS ORDERED: Senokot 8.6 MG TAB PO PRN (16:53)
[2017-06-09] MEDS ORDERED: Acetaminophen 325 MG TAB PO PRN (16:53)
[2017-06-09 16:55] VITALS: BMI 29.9
[2017-06-09] MEDS ORDERED: Prevnar 13-Val Conj/PF 0.5 ML SYRINGE IM ONE (17:30)
--- NOTE | 2017-06-09 17:41 | HP ---
DATE OF ADMISSION: 06/09/2017 CHIEF COMPLAINT: Nausea, vomiting, and abdominal pain. HISTORY OF PRESENT ILLNESS: This is a 76-year-old white female with recent history of admission to [facility] with diverticulitis. The patient had evidence of microperforation and General Surgery be d seen the patient and decided not to operate if the patient has a history of chronic steroid use and it was more of a microperforation and suggested antibiotics. The patient was discharged to rehab an d following that, she was discharged to [facility]. The patient was recuperating with an tibiotics and the patient developed sudden onset of abdominal pain at this time in the left upper santiago drant associated with severe nausea and vomiting. The patient was immediately brought to the ER for further evaluation. In the ER, CT of the abdomen was done as she has a recent history of microperfor ation, which did not show any evidence of perforation and that showed improvement in the diverticulit is, but it did show a left lower lobe pneumonia with a normal white count. The patient was admitted for further evaluation of the pneumonia. The patient denied having any chest pain. No nausea at thi s time. Her abdominal pain is improved following giving morphine in the ER. PAST MEDICAL HISTORY: 1. Atrial fibrillation. 2. Hyperlipidemia. 3. Hypothyroidism. 4. Hypertension. 5. Sjogren's syndrome, on steroid therapy. 6. Osteoarthritis. PAST SURGICAL HISTORY: 1. Appendectomy. 2. Hysterectomy. 3. Thyroidectomy. CODE STATUS: Discussed with son, she is FULL CODE. SOCIAL HISTORY: The patient denies any alcohol. No history of smoking. No history of illicit drug use. FAMILY HISTORY: No family history of coronary artery disease. This has been thoroughly reviewed wit h the patient. ALLERGIES: AMLODIPINE. HOME MEDICATIONS: 1. Hydralazine 50 mg p.o. t.i.d. 2. BuSpar 5 mg daily. 3. Thyroid 60 mg p.o. daily. 4. Inderal 60 mg p.o. t.i.d. 5. Clonidine 0.2 mg p.o. t.i.d. 6. Aspirin 81 mg p.o. daily. 7. Tylenol p.r.n. 8. Augmentin 875 mg p.o. b.i.d. REVIEW OF SYSTEMS: All 12 systems are reviewed with the patient thoroughly and found to be negative unless otherwise described in the HPI: Constitutional: Weight loss or gain, sense of well-being, ability to conduct usual activities, exerc ise tolerance. Skin/Breast: Rash, itching, changes in hair growth or loss, nail changes, breast lumps, tenderness, swelling, nipple discharge. Eyes: Vision, double vision, tearing, blind spots, pain. ENT/Mouth: Headaches (location, time of onset, duration, precipitating factors), vertigo, lightheadedness, injury. Vision, double vision, tearing, blind spots, pain, nose b leeding, colds, obstruction, discharge, dental difficulties, gingival bleeding, dentures, neck stiffn ess, pain, tenderness, masses in thyroid or other areas Cardiovascular: Precordial pain, substernal distress, palpitations, syncope, dyspnea on exertion, or thopnea, nocturnal paroxysmal dyspnea, edema, cyanosis, hypertension, heart murmurs, varicosities, ph lebitis, claudication. Respiratory: Pain, shortness of breath, wheezing, stridor, cough, hemoptysis, fever or night sweats Gastrointestinal: Poor appetite, dysphagia, indigestion, abdominal pain, heartburn, eructation, naus ea, vomiting, hematemesis, jaundice, constipation, or diarrhea, abnormal stools (hilary-colored, tarry, bloody, greasy, foul smelling), flatulence, hemorrhoids, recent changes in bowel habits. Genitourinary: Urgency, frequency, dysuria, nocturia, hematuria, polyuria, oliguria, unusual (or felicia nge in) color of urine, stones, hesitancy, change in size of stream, dribbling, acute retention or in continence, libido, potency. Musculoskeletal: Pain, swelling, redness or heat of muscles or joints, limitation, of motion, muscular weakness, atrophy, cramps. Neurologic/Psychiatric: Convulsions, paralyses, tremor, incoordination, parasthesias, difficulties w ith memory of speech, sensory or motor disturbances, or muscular coordination (ataxia, tremor), emoti onal problems, anxiety, depression, previous psychiatric care, unusual perceptions, hallucinations. Allergy/Immunologic: Skin rash, anemia, bleeding tendency, polydipsia, polyuria, intolerance to heat or cold. PHYSICAL EXAMINATION: VITAL SIGNS: Blood pressures were 135/88, heart rate is 88, respiratory rate is 18, saturation is 99 % on 3 liters. GENERAL: The patient is moderately built and moderately nourished. She does not appear to be in acu te distress at this time. She is alert and oriented x3. HEENT: Atraumatic, normocephalic. PERRLA. Extraocular muscles were intact. Oral mucosa pink and m oist. CARDIOVASCULAR: S1, S2 normal. No murmurs, rubs or gallops. LUNGS: Bilateral air entry was equal. No wheezing, no crackles. ABDOMEN: Soft, nontender, no guarding, no rebound tenderness. Bowel sounds normal. MUSCULOSKELETAL: No calf tenderness. No pedal edema. No joint tenderness. No joint swelling. SKIN: No cyanosis, no erythema, no rash, no pallor. NEUROLOGIC: Cranial nerve examination II-XII intact. No focal deficits were noted. NECK: No thyromegaly. No lymphadenopathy was noted. PSYCHIATRIC: No sign of suicidal ideation. No signs of sreedhar was noted. LABORATORY DATA: WBC 9.2, hemoglobin is 12.3, hematocrit 37.2, platelets are 405. Sodium 130, potas sium 4.0, chloride is 98, bicarbonate is 23, BUN 7, creatinine 0.81. BNP is 223, troponin 0.021. CT of the abdomen was done showing evidence of a left lower lobe infiltrate. ASSESSMENT AND PLAN: 1. Acute healthcare-associated pneumonia, left lung. 2. History of diverticulitis. 3. Atrial fibrillation. 4. History of Sjogren's syndrome, on chronic steroid therapy. 5. History of hypothyroidism. 6. Acute hyponatremia. PLAN: 1. Plan is to start the patient on broad-spectrum antibiotics with levofloxacin 750 mg IV daily queenie g with cefepime 1 gram IV b.i.d. to cover most of the hospital acquired infections. The patient does not have any elevated white count at this time and has not started on vancomycin. The patient is no t septic at this time. We will closely monitor. We will continue the patient on albuterol nebulizer treatments as needed every 4 hours. 2. We will continue to monitor for diverticulitis. The patient was on amoxicillin. We will hold of f on this as the patient will be on other antibiotics to cover anaerobic. 3. The patient has atrial fibrillation. We will restart the patient on the home medications. 4. The patient has rate controlled at this time. 5. The patient has a history of hypertension. We will closely monitor. We will restart the patient 's home medications. Plan is to keep the blood pressure less than 130/80. 6. The patient has a history of hypothyroidism. We will continue the home medications. 7. The patient has a history of Sjogren's disease, on steroid therapy, but currently she is not on a ny steroids. We will closely monitor for any worsening blood pressure secondary to adrenal insuffici ency because of the chronic steroid use. 8. The patient has hyponatremia. We will start the patient on normal saline at 175 an hour. We sheila l closely monitor. 9. DVT prophylaxis, Lovenox 40 mg subcu daily. I spent 75 minutes with this patient.
--- NOTE | 2017-06-09 18:18 | RAD ---
EXAM: ONE VIEW CHEST 06/09/17 COMPARISON: 05/28/17 HISTORY: Chest pain with shortness of breath. FINDINGS: There is enlarged cardiac silhouette. Pulmonary vessels are prominent. There are reticulonodular opac ities, without consolidation or mass. No pneumothorax. Previous vertebroplasty changes noted. IMPRESSION: 1. Cardiomegaly. 2. Reticulonodular opacities due to edema or infiltrate. Continued surveillance. POS: ARNAV
[2017-06-09] MEDS: Sodium Chloride 0.9% 1,000 ML IV SCH (19:43)
[2017-06-09] MEDS: Famotidine/PF 20 mg/2ml Vial SLOW IVP SCH (20:31)
[2017-06-09] MEDS: Cefepime 2 GM, Syringe 2.5 ML in Sterile Water 10 ML SLOW IVP SCH (20:39)
[2017-06-09] MEDS: Ondansetron HCl/PF 4 MG/2 ML Vial IVP PRN (20:57)
[2017-06-09] MEDS: HYDROcodone/Acetaminophen 5/325 mg Tablet PO PRN (21:00)
[2017-06-09] MEDS ORDERED: Cefepime 2 GM in Sodium Chloride 0.9% 100 ML IVPB SCH (21:00)
[2017-06-09] MEDS: Propranolol 60 MG TAB PO SCH (21:02)
[2017-06-09] MEDS: cloNIDine 0.3 MG TAB PO SCH (21:02)
[2017-06-09] MEDS: Docusate 100 MG CAP PO SCH (21:03)
[2017-06-09] MEDS: Mesalamine DR 400 mg Capsule PO SCH (21:03)
[2017-06-09] MEDS: hydrALAZINE 25 MG TAB PO SCH (21:03)
[2017-06-10 05:01] LABS: Anion Gap 10 mmol/L (10-20); BUN (Urea Nitrogen) 7 mg/dL (9.8-20.1); Calc. Creatinine Clearance 69 mL/min (70-130); Calcium 10.1 mg/dL (7.8-10.44); Carbon Dioxide 24 mmol/L (23-31); Chloride 102 mmol/L (98-107); Estimated GFR-MDRD 76; Glucose 82 mg/dL (83-110); Potassium 3.8 mmol/L (3.5-5.1); Sodium 132 mmol/L (136-145)
[2017-06-10 05:36] LABS: Band 2 % (5-11); Eosinophils 4 % (0-10); Hemoglobin 9.9 g/dL (12.0-16.0); Hypochromia SLIGHT = 6-15 cells (100X) (0-5/hpf); Lymphocytes 23 % (21-51); MDiff Complete? YES; Mean Corpuscular HGB CONC 33.5 g/dL (32.0-36.0); Mean Corpuscular Hemoglobin 31.8 pg (27.0-31.0); Mean Corpuscular Volume 95.1 fl (81.0-99.0); Mean Platelet Volume 7.3 fL (7.4-10.4); Metamyelocyte 1 % (0-0); Monocytes 15 % (0-10); Neutrophil 49 % (42-75); PLT Morphology Comment Appears Adequate; Platelet Count 358 thou/uL (130-400); RBC Distribution Width 14.1 % (11.5-14.5); Reactive Lymphocytes 6 % (0-10); Red Blood Cell (RBC) Count 3.11 mill/uL (4.20-5.40)
[2017-06-10] MEDS: Sodium Chloride 0.9% 1,000 ML IV SCH (06:02)
[2017-06-10] MEDS: Enoxaparin Sodium 40 MG/0.4 ML SYRINGE SC SCH (08:52)
[2017-06-10] MEDS: Mesalamine DR 400 mg Capsule PO SCH ×3 (08:56→20:47)
[2017-06-10] MEDS: Famotidine/PF 20 mg/2ml Vial SLOW IVP SCH ×2 (08:56→20:48)
[2017-06-10] MEDS: Aspirin 81 mg Enteric Coated Tablet PO SCH (08:57)
[2017-06-10] MEDS: hydrALAZINE 25 MG TAB PO SCH ×3 (08:57→20:49)
[2017-06-10] MEDS: busPIRone HCl 5 MG TAB PO SCH (08:57)
[2017-06-10] MEDS: Docusate 100 MG CAP PO SCH ×2 (08:57→20:47)
[2017-06-10] MEDS: Saccharomyces boulardii 250 MG CAP PO SCH (08:57)
[2017-06-10] MEDS: Propranolol 60 MG TAB PO SCH ×3 (08:58→20:48)
[2017-06-10] MEDS: Thyroid 60 MG TAB PO SCH (08:58)
[2017-06-10] MEDS: cloNIDine 0.3 MG TAB PO SCH ×3 (08:58→20:52)
[2017-06-10] MEDS: Cefepime 2 GM, Syringe 2.5 ML in Sterile Water 10 ML SLOW IVP SCH ×3 (09:13→20:46)
--- NOTE | 2017-06-10 14:40 | PDOC.PN ---
- Subjective Encounter Start Date: 06/10/17 Encounter Start Time: 13:00 Patient iss een today, alert and oriented. She got a Dose of librium by Mistake of nurse, Will closely Monitor, Will monitor with a pulse oxymetry. - Objective Resuscitation Status: Resuscitation Status FULL:Full Resuscitation MAR Reviewed: Yes Vital Signs & Weight: Vital Signs (12 hours) Temp Pulse Resp BP BP Pulse Ox 06/10/17 08:58 154/69 H 06/10/17 08:57 87 154/69 H 06/10/17 08:00 98.2 F 87 16 154/69 H 93 L Weight Admit Weight 148 lb Weight 148 lb I&O: 06/09/17 06/10/17 06/11/17 06:59 06:59 06:59 Intake Total 636.5 412 Output Total 100 Balance 536.5 412 Result Diagrams: 06/10/17 03:22 06/10/17 03:22 Radiology Reviewed by me: Yes (No consolidation noted.) Phys Exam - Physical Examination HEENT: PERRLA, moist MMs Neck: no nodes, no JVD Respiratory: no wheezing, no rales Cardiovascular: RRR, no significant murmur Gastrointestinal: soft, non-tender Musculoskeletal: no edema, pulses present Dx/Plan (1) Healthcare-associated pneumonia Code(s): J18.9 - PNEUMONIA, UNSPECIFIED ORGANISM Status: Acute Comment: COntinue on iV antibiotics, CT abdomen showed lower lobe infiltrate, No WBC eleavtion noted. Will continue with Nebs. (2) Chronic atrial fibrillation Code(s): I48.2 - CHRONIC ATRIAL FIBRILLATION Status: Chronic Comment: s/p Watchman device (3) Hypertension Code(s): I10 - ESSENTIAL (PRIMARY) HYPERTENSION Status: Chronic Qualifiers: Comment: Stbale. At goal,. continue home Meds. (4) Sjogren's syndrome Code(s): M35.00 - SICCA SYNDROME, UNSPECIFIED Status: Chronic Comment: Continue to monitor no use of Steroids yet. - Plan cont current plan of care, plan discussed w/ family, continue antibiotics, PT/OT , speech therapy, respiratory therapy, incentive spirometry, out of bed/ambulate , DVT proph w/lovenox * . - Discharge Day Encounter end time: 13:35 Review of Systems - Review of Systems Constitutional: negative: fever, chills, sweats, weakness, malaise, other Eyes: negative: Pain, Vision Change, Conjunctivae Inflammation, Eyelid Inflammation, Redness, Other ENT: negative: Ear Pain, Ear Discharge, Nose Pain, Nose Discharge, Nose Congestion, Mouth Pain, Mouth Swelling, Throat Pain, Throat Swelling, Other Respiratory: negative: Cough, Dry, Shortness of Breath, Hemoptysis, SOB with Excertion, Pleuritic Pain, Sputum, Wheezing Cardiovascular: negative: chest pain, palpitations, orthopnea, paroxysmal nocturnal dyspnea, edema, light headedness, other Gastrointestinal: negative: Nausea, Vomiting, Abdominal Pain, Diarrhea, Constipation, Melena, Hematochezia, Other Genitourinary: negative: Dysuria, Frequency, Incontinence, Hematuria, Retention , Other Musculoskeletal: negative: Neck Pain, Shoulder Pain, Arm Pain, Back Pain, Hand Pain, Leg Pain, Foot Pain, Other Skin: negative: Rash, Lesions, Gamal, Bruising, Other - Medications/Allergies Allergies/Adverse Reactions: Allergies Allergy/AdvReac Type Severity Reaction Status Date / Time amlodipine Allergy "swelled Verified 05/28/17 18:49 in feet and legs" morphine Allergy Verified 06/09/17 19:40 Medications: Current Medications Acetaminophen (Tylenol) 650 mg PO Q4H PRN PRN Reason: Headache/Fever or Pain Hydrocodone Bitart/Acetaminophen ([place] 5/325) 1 tab PO Q4H PRN PRN Reason: Moderate Pain (4-6) Last Admin: 06/09/17 21:00 Dose: 1 tab Albuterol Sulfate (Ventolin) 2.5 mg NEB [id number] PRN PRN Reason: Wheezing Aspirin (Ecotrin) 81 mg PO DAILY [facility] Last Admin: 06/10/17 08:57 Dose: 81 mg Bisacodyl (Dulcolax) 10 mg PO DAILYPRN PRN PRN Reason: Constipation Buspirone HCl (Buspar) 10 mg PO DAILY [facility] Last Admin: 06/10/17 08:57 Dose: 10 mg Clonidine (Catapres) 0.3 mg PO TID [facility] Last Admin: 06/10/17 08:58 Dose: 0.3 mg Docusate Sodium (Colace) 100 mg PO BID [facility] Last Admin: 06/10/17 08:57 Dose: 100 mg Enoxaparin Sodium (Lovenox) 40 mg SC 0900 [facility] Last Admin: 06/10/17 08:52 Dose: 40 mg Famotidine (Pepcid) 20 mg SLOW IVP Q12HR [facility] Last Admin: 06/10/17 08:56 Dose: 20 mg Hydralazine HCl (Apresoline) 50 mg PO TID [facility] Last Admin: 06/10/17 08:57 Dose: 50 mg Levofloxacin 750 mg/ Device 150 mls @ 100 mls/hr IVPB Q24HR [facility] Last Admin: 06/09/17 18:37 Dose: 150 mls Sodium Chloride (Normal Saline 0.9%) 1,000 mls @ 75 mls/hr IV .[id number] [facility] Last Admin: 06/10/17 06:02 Dose: Not Given Cefepime HCl 2 gm/ Syringe 2.5 (ml/ Sterile Water) 12.5 mls @ 150 mls/hr SLOW IVP 0800,1999 [facility] Last Admin: 06/10/17 09:58 Dose: 12.5 mls Mesalamine (Delzicol Dr) 800 mg PO TID [facility] Last Admin: 06/10/17 08:56 Dose: 800 mg Ondansetron HCl (Zofran) 4 mg IVP Q6H PRN PRN Reason: Nausea/Vomiting Last Admin: 06/09/17 20:57 Dose: 4 mg Propranolol HCl (Inderal) 60 mg PO TID [facility] Last Admin: 06/10/17 08:58 Dose: 60 mg Saccharomyces Boulardii (Florastor) 250 mg PO DAILY [facility] Last Admin: 06/10/17 08:57 Dose: 250 mg Senna (Senokot) 2 tab PO HSPRN PRN PRN Reason: Constipation Sodium Chloride (Flush - Normal Saline) 10 ml IVF Q12HR [facility] Last Admin: 06/10/17 09:59 Dose: 10 ml Sodium Chloride (Flush - Normal Saline) 10 ml IVF PRN PRN PRN Reason: Saline Flush Thyroid ([place] Thyroid) 60 mg PO QAM [facility] Last Admin: 06/10/17 08:58 Dose: 60 mg
[2017-06-10] MEDS ORDERED: Furosemide 20 MG/2 ML VIAL SLOW IVP SCH (17:30)
[2017-06-10] MEDS: Potassium Chloride 10 MEQ TAB PO SCH (20:48)
[2017-06-11] MEDS: Ondansetron HCl/PF 4 MG/2 ML Vial IVP PRN ×2 (00:15→06:00)
[2017-06-11] MEDS ORDERED: Furosemide 20 MG/2 ML VIAL SLOW IVP SCH (06:00)
[2017-06-11] MEDS: Mesalamine DR 400 mg Capsule PO SCH ×3 (09:00→20:56)
[2017-06-11] MEDS: Famotidine/PF 20 mg/2ml Vial SLOW IVP SCH (09:08)
[2017-06-11] MEDS: Cefepime 2 GM, Syringe 2.5 ML in Sterile Water 10 ML SLOW IVP SCH (09:08)
[2017-06-11] MEDS: Mag-Al 1200 mg/1200 mg/30 ML UDCUP PO PRN ×2 (09:47→21:02)
[2017-06-11] MEDS: Propranolol 60 MG TAB PO SCH ×3 (09:49→20:57)
[2017-06-11] MEDS: cloNIDine 0.3 MG TAB PO SCH (09:51)
[2017-06-11] MEDS: hydrALAZINE 25 MG TAB PO SCH ×3 (09:53→20:57)
[2017-06-11] MEDS: Enoxaparin Sodium 40 MG/0.4 ML SYRINGE SC SCH (09:54)
[2017-06-11] MEDS ORDERED: Folic Acid 1 MG TAB PO SCH (12:00)
--- NOTE | 2017-06-11 13:39 | PDOC.PN ---
- Subjective Encounter Start Date: 06/11/17 Encounter Start Time: 12:10 Patient is seen today, this morning she complained of chest pain showed Rt BBB, non specific st chages , troponin was elevated. Pt denies any chest pain again. persistant nausea. - Objective Resuscitation Status: Resuscitation Status DNR:Do Not Resuscitate MAR Reviewed: Yes Result Diagrams: 06/10/17 03:22 06/10/17 03:22 Radiology Reviewed by me: Yes EKG Reviewed by me: Yes ( RBBB, Non specfic St seg changes.) Phys Exam - Physical Examination HEENT: PERRLA, moist MMs Neck: no nodes, no JVD Respiratory: no wheezing, no rales Cardiovascular: RRR, no significant murmur Gastrointestinal: soft, non-tender Musculoskeletal: no edema, pulses present Neurological: non-focal, normal sensation Lymphatic: no nodes Psychiatric: normal affect, A&O x 3 Skin: no rash, normal turgor Dx/Plan (1) NSTEMI (non-ST elevated myocardial infarction) Code(s): I21.4 - NON-ST ELEVATION (NSTEMI) MYOCARDIAL INFARCTION Status: Acute Comment: Pt is on Aspirin, Will start on BB, and Statin, Will consult Cardilogy and repeat Troponin for the trend, will order Echo. pt is High risk. Could be Demand ischemia from her High Blood pressure earlier in the night. (2) Healthcare-associated pneumonia Code(s): J18.9 - PNEUMONIA, UNSPECIFIED ORGANISM Status: Acute Comment: change to PO Abx, CT abdomen showed lower lobe infiltrate, No WBC eleavtion noted. Chest xray two view showed no infiltrtae. Will continue with Nebs. (3) Chronic atrial fibrillation Code(s): I48.2 - CHRONIC ATRIAL FIBRILLATION Status: Chronic Comment: s/p Watchman device (4) Hypertension Code(s): I10 - ESSENTIAL (PRIMARY) HYPERTENSION Status: Chronic Qualifiers: Comment: Stbale. At goal,. continue home Meds. (5) Sjogren's syndrome Code(s): M35.00 - SICCA SYNDROME, UNSPECIFIED Status: Chronic Comment: Continue to monitor no use of Steroids yet. - Plan cont current plan of care, continue antibiotics, PT/OT, respiratory therapy, incentive spirometry, out of bed/ambulate, DVT proph w/lovenox * . - Discharge Day Encounter end time: 12:50 Review of Systems - Review of Systems Eyes: negative: Pain, Vision Change, Conjunctivae Inflammation, Eyelid Inflammation, Redness, Other ENT: negative: Ear Pain, Ear Discharge, Nose Pain, Nose Discharge, Nose Congestion, Mouth Pain, Mouth Swelling, Throat Pain, Throat Swelling, Other Respiratory: negative: Cough, Dry, Shortness of Breath, Hemoptysis, SOB with Excertion, Pleuritic Pain, Sputum, Wheezing Cardiovascular: chest pain. negative: palpitations, orthopnea, paroxysmal nocturnal dyspnea, edema, light headedness, other Gastrointestinal: Nausea Musculoskeletal: negative: Neck Pain, Shoulder Pain, Arm Pain, Back Pain, Hand Pain, Leg Pain, Foot Pain, Other Skin: negative: Rash, Lesions, Gamal, Bruising, Other - Medications/Allergies Allergies/Adverse Reactions: Allergies Allergy/AdvReac Type Severity Reaction Status Date / Time amlodipine Allergy "swelled Verified 05/28/17 18:49 in feet and legs" morphine Allergy Verified 06/09/17 19:40 Medications: Current Medications Acetaminophen (Tylenol) 650 mg PO Q4H PRN PRN Reason: Headache/Fever or Pain Hydrocodone Bitart/Acetaminophen ([place] 5/325) 1 tab PO Q4H PRN PRN Reason: Moderate Pain (4-6) Last Admin: 06/09/17 21:00 Dose: 1 tab Al Hydroxide/Mg Hydroxide (Maalox) 30 ml PO TIDPRN PRN PRN Reason: Heartburn or Indigestion Last Admin: 06/11/17 09:47 Dose: 30 ml Albuterol Sulfate (Ventolin) 2.5 mg NEB [id number] PRN PRN Reason: Wheezing Aspirin (Ecotrin) 81 mg PO DAILY [facility] Last Admin: 06/10/17 08:57 Dose: 81 mg Atorvastatin Calcium (Lipitor) 20 mg PO [facility] Bisacodyl (Dulcolax) 10 mg PO DAILYPRN PRN PRN Reason: Constipation Buspirone HCl (Buspar) 10 mg PO DAILY [facility] Last Admin: 06/10/17 08:57 Dose: 10 mg [facility] ([facility]g) [facility] Docusate Sodium (Colace) 100 mg PO BID [facility] Last Admin: 06/10/17 20:47 Dose: 100 mg Enoxaparin Sodium (Lovenox) 40 mg SC 0900 [facility] Last Admin: 06/11/17 09:54 Dose: 40 mg Famotidine (Pepcid) 20 mg PO BID [facility] Folic Acid (Folvite) 1 mg PO DAILY [facility] Folic Acid (Folvite) 1 mg PO 1200 [facility] Stop: 06/11/17 14:00 Hydralazine HCl (Apresoline) 50 mg PO TID [facility] Last Admin: 06/11/17 09:53 Dose: 50 mg Lactulose (Lactulose) 20 gm PO Q6H [facility] Levofloxacin (Levaquin) 500 mg PO 0600 [facility] Lisinopril (Zestril) 5 mg PO DAILY [facility] Mesalamine (Delzicol Dr) 800 mg PO TID [facility] Last Admin: 06/10/17 20:47 Dose: 800 mg Ondansetron HCl (Zofran) 4 mg IVP Q6H PRN PRN Reason: Nausea/Vomiting Last Admin: 06/11/17 06:00 Dose: 4 mg Potassium Chloride (Klor-Con 10) 10 meq PO BID [facility] Last Admin: 06/10/17 20:48 Dose: 10 meq Propranolol HCl (Inderal) 60 mg PO TID [facility] Last Admin: 06/11/17 09:49 Dose: 60 mg Rosuvastatin Calcium (Crestor) 10 mg PO DAILY [facility] Saccharomyces Boulardii (Florastor) 250 mg PO DAILY [facility] Last Admin: 06/10/17 08:57 Dose: 250 mg Senna (Senokot) 2 tab PO HSPRN PRN PRN Reason: Constipation Last Admin: 06/10/17 20:47 Dose: 2 tab Sodium Chloride (Flush - Normal Saline) 10 ml IVF Q12HR [facility] Last Admin: 06/10/17 20:48 Dose: 10 ml Sodium Chloride (Flush - Normal Saline) 10 ml IVF PRN PRN PRN Reason: Saline Flush Sucralfate (Carafate) 1 gm PO ACHS [facility] Thyroid ([place] Thyroid) 60 mg PO QAM [facility] Last Admin: 06/10/17 08:58 Dose: 60 mg
[2017-06-11] MEDS ORDERED: Furosemide 20 MG TAB PO SCH (14:00)
[2017-06-11 14:51] LABS: CKMB 1.1 ng/mL (0-6.6); Troponin I 0.027 ng/mL (< 0.028)
[2017-06-11] MEDS: Potassium Chloride 10 MEQ TAB PO SCH ×2 (14:59→20:56)
[2017-06-11] MEDS: busPIRone HCl 5 MG TAB PO SCH (14:59)
[2017-06-11] MEDS: Saccharomyces boulardii 250 MG CAP PO SCH (15:00)
[2017-06-11] MEDS: Aspirin 81 mg Enteric Coated Tablet PO SCH (15:01)
[2017-06-11] MEDS: Docusate 100 MG CAP PO SCH ×2 (15:01→20:57)
[2017-06-11] MEDS: Thyroid 60 MG TAB PO SCH (15:03)
[2017-06-11] MEDS: Carvedilol 3.125 MG TAB PO SCH (17:03)
[2017-06-11] MEDS: Sucralfate 1 GM TAB PO SCH ×2 (17:03→20:58)
[2017-06-11] MEDS: Atorvastatin Calcium 20 MG TAB PO SCH (20:56)
[2017-06-11] MEDS: Famotidine 20 MG TAB PO SCH (20:56)
[2017-06-12] MEDS: Docusate 100 MG CAP PO SCH ×2 (08:28→20:59)
[2017-06-12] MEDS: Saccharomyces boulardii 250 MG CAP PO SCH (08:28)
[2017-06-12] MEDS: Sucralfate 1 GM TAB PO SCH ×4 (08:28→21:02)
[2017-06-12] MEDS: hydrALAZINE 25 MG TAB PO SCH ×3 (08:28→20:58)
[2017-06-12] MEDS: busPIRone HCl 5 MG TAB PO SCH (08:29)
[2017-06-12] MEDS: Carvedilol 3.125 MG TAB PO SCH ×2 (08:29→16:05)
[2017-06-12] MEDS: Folic Acid 1 MG TAB PO SCH (08:29)
[2017-06-12] MEDS: Potassium Chloride 10 MEQ TAB PO SCH ×2 (08:29→20:58)
[2017-06-12] MEDS: Lisinopril 5 MG TAB PO SCH (08:29)
[2017-06-12] MEDS: Famotidine 20 MG TAB PO SCH ×2 (08:29→20:58)
[2017-06-12] MEDS: Mesalamine DR 400 mg Capsule PO SCH ×3 (08:30→20:57)
[2017-06-12] MEDS: Enoxaparin Sodium 40 MG/0.4 ML SYRINGE SC SCH (08:30)
[2017-06-12] MEDS: Aspirin 81 mg Enteric Coated Tablet PO SCH (08:30)
[2017-06-12] MEDS: Propranolol 60 MG TAB PO SCH ×3 (08:31→20:58)
[2017-06-12] MEDS: Thyroid 60 MG TAB PO SCH (08:31)
[2017-06-12] MEDS: Ondansetron HCl/PF 4 MG/2 ML Vial IVP PRN ×3 (08:39→21:32)
[2017-06-12] MEDS ORDERED: Rosuvastatin 10 MG TAB PO SCH (09:00)
[2017-06-12] MEDS: HYDROcodone/Acetaminophen 5/325 mg Tablet PO PRN ×2 (09:18→16:04)
--- NOTE | 2017-06-12 12:23 | PDOC.PN ---
- Subjective Encounter Start Date: 06/12/17 Encounter Start Time: 10:30 -: old records requested/rev Pt seen and examined, chart reviewed in its entirety, this is my first visit with this patient Denies CP or abd pain, no n/V/D/C, no SOB except with exertion, no wheezing, some cough, some phlegm production. No F/C 10 point ROS performed and neg for all systems except as above - Objective Resuscitation Status: Resuscitation Status DNR:Do Not Resuscitate MAR Reviewed: Yes Vital Signs & Weight: Vital Signs (12 hours) Temp Pulse Resp BP BP Pulse Ox 06/12/17 08:29 79 156/72 H 06/12/17 08:28 79 06/12/17 08:00 98.4 F 79 20 92 L 06/12/17 07:58 98.4 F 79 20 156/72 H 92 L I&O: 06/11/17 06/12/17 06/13/17 06:59 06:59 06:59 Intake Total 950 Output Total 120 Balance 830 Result Diagrams: 06/10/17 03:22 06/10/17 03:22 Radiology Reviewed by me: Yes EKG Reviewed by me: Yes Phys Exam - Physical Examination Constitutional: NAD chronically ill-appearing HEENT: PERRLA, moist MMs, sclera anicteric, oral pharynx no lesions Neck: no nodes, no JVD, supple, full ROM Respiratory: no wheezing, no rhonchi bibasilar rales, left more than right Cardiovascular: RRR, no rub 3/6 VIV RUSB Gastrointestinal: soft, non-tender, no distention, positive bowel sounds Musculoskeletal: pulses present, edema present Neurological: non-focal, normal sensation, moves all 4 limbs Lymphatic: no nodes Psychiatric: normal affect, A&O x 3 Skin: no rash, normal turgor, cap refill <2 seconds Dx/Plan (1) Healthcare-associated pneumonia Code(s): J18.9 - PNEUMONIA, UNSPECIFIED ORGANISM Status: Acute Comment: LLL , CT abdomen showed lower lobe infiltrate, No WBC eleavtion noted. Chest xray two view showed no infiltrtae. Will continue with Nebs. On abx (2) Acute diverticulitis of intestine Code(s): K57.92 - DVTRCLI OF INTEST, PART UNSP, W/O PERF OR ABSCESS W/O BLEED Status: Chronic Comment: complicated, with microabscess/perforation (3) Elevated troponin Code(s): R74.8 - ABNORMAL LEVELS OF OTHER SERUM ENZYMES Status: Resolved Comment: demand ischemia (4) Chronic atrial fibrillation Code(s): I48.2 - CHRONIC ATRIAL FIBRILLATION Status: Chronic Comment: s/p Watchman device (5) Hyperlipidemia Code(s): E78.5 - HYPERLIPIDEMIA, UNSPECIFIED Status: Chronic Qualifiers: Hyperlipidemia type: unspecified Qualified Code(s): E78.5 - Hyperlipidemia , unspecified (6) Hypertension Code(s): I10 - ESSENTIAL (PRIMARY) HYPERTENSION Status: Chronic Qualifiers: Comment: Stbale. At goal,. continue home Meds. (7) Hypothyroidism Code(s): E03.9 - HYPOTHYROIDISM, UNSPECIFIED Status: Chronic Qualifiers: Hypothyroidism type: unspecified Qualified Code(s): E03.9 - Hypothyroidism , unspecified (8) Sjogren's syndrome Code(s): M35.00 - SICCA SYNDROME, UNSPECIFIED Status: Chronic Qualifiers: Sjogren's organ involvement: unspecified organ involvement Qualified Code(s ): M35.00 - Sicca syndrome, unspecified Comment: Continue to monitor no use of Steroids yet. - Plan cont current plan of care, continue antibiotics, PT/OT, respiratory therapy, out of bed/ambulate, DVT proph w/lovenox * . PT will need placement, CM working on it. Pt agreeable to the [place] depsite telling CM charles that she is not. CM updated
[2017-06-12] MEDS: Atorvastatin Calcium 20 MG TAB PO SCH (20:59)
[2017-06-13 05:48] LABS: #Basophils 0.1 thou/uL (0.0-0.2); #Eosinphils 0.5 thou/uL (0.0-0.7); #Lymphocytes 2.4 thou/uL (1.20-3.40); #Neutrophils 4.4 thou/uL (1.40-6.50); %Basophils 0.8 % (0.0-1.0); %Eosinophils 5.8 % (0.0-10.0); %Lymphocytes 28.9 % (21.0-51.0); %Neutrophils 52.5 % (42.0-75.0); Hemoglobin 11.1 g/dL (12.0-16.0); Mean Corpuscular HGB CONC 32.3 g/dL (32.0-36.0); Mean Corpuscular Hemoglobin 31.3 pg (27.0-31.0); Mean Corpuscular Volume 96.7 fl (81.0-99.0); Mean Platelet Volume 7.6 fL (7.4-10.4); Platelet Count 348 thou/uL (130-400); Red Blood Cell (RBC) Count 3.55 mill/uL (4.20-5.40); White Blood Cell (WBC) Count 8.4 thou/uL (4.8-10.8)
[2017-06-13 05:56] LABS: Anion Gap 11 mmol/L (10-20); BUN (Urea Nitrogen) 10 mg/dL (9.8-20.1); Calc. Creatinine Clearance 74 mL/min (70-130); Calcium 11.6 mg/dL (7.8-10.44); Carbon Dioxide 25 mmol/L (23-31); Chloride 98 mmol/L (98-107); Estimated GFR-MDRD 83; Glucose 98 mg/dL (83-110); Magnesium 1.1 mg/dL (1.6-2.6); Potassium 3.9 mmol/L (3.5-5.1); Sodium 130 mmol/L (136-145)
[2017-06-13] MEDS ORDERED: Magnesium Sulfate 4 GM in Sodium Chloride 0.9% 250 ML 250 ML IVPB SCH (08:45)
[2017-06-13] MEDS: hydrALAZINE 25 MG TAB PO SCH ×3 (08:57→21:06)
[2017-06-13] MEDS: Lisinopril 5 MG TAB PO SCH (08:57)
[2017-06-13] MEDS: Aspirin 81 mg Enteric Coated Tablet PO SCH (08:57)
[2017-06-13] MEDS: Saccharomyces boulardii 250 MG CAP PO SCH (08:57)
[2017-06-13] MEDS: Folic Acid 1 MG TAB PO SCH (08:57)
[2017-06-13] MEDS: Potassium Chloride 10 MEQ TAB PO SCH ×2 (08:58→21:08)
[2017-06-13] MEDS: busPIRone HCl 5 MG TAB PO SCH (08:58)
[2017-06-13] MEDS: Sucralfate 1 GM TAB PO SCH ×4 (08:58→21:07)
[2017-06-13] MEDS: Docusate 100 MG CAP PO SCH ×2 (08:58→21:05)
[2017-06-13] MEDS: Thyroid 60 MG TAB PO SCH (08:58)
[2017-06-13] MEDS: Carvedilol 3.125 MG TAB PO SCH ×2 (08:58→15:57)
[2017-06-13] MEDS: Mesalamine DR 400 mg Capsule PO SCH ×3 (08:59→21:05)
[2017-06-13] MEDS: Propranolol 60 MG TAB PO SCH ×3 (08:59→21:07)
[2017-06-13] MEDS: Enoxaparin Sodium 40 MG/0.4 ML SYRINGE SC SCH (09:00)
[2017-06-13] MEDS: Famotidine 20 MG TAB PO SCH ×2 (09:00→21:06)
[2017-06-13] MEDS: Ondansetron HCl/PF 4 MG/2 ML Vial IVP PRN (09:09)
[2017-06-13] MEDS: HYDROcodone/Acetaminophen 5/325 mg Tablet PO PRN ×2 (10:02→15:56)
--- NOTE | 2017-06-13 11:50 | PDOC.PN ---
- Subjective Encounter Start Date: 06/13/17 Encounter Start Time: 09:30 Pt lethargic this morning, had n/V earlier. Lost IV, nursing attempting to restart. No F/C, some left sided abd pain, no GI bleeding. 10 point ROS attempted, but pt to somnolent. - Objective Resuscitation Status: Resuscitation Status DNR:Do Not Resuscitate MAR Reviewed: Yes Vital Signs & Weight: Vital Signs (12 hours) Temp Pulse Resp BP BP BP Pulse Ox 06/13/17 08:57 93 185/64 H 06/13/17 08:00 98.1 F 93 22 H 185/64 H 92 L 06/13/17 05:30 99 F 85 19 159/88 H 94 L I&O: 06/12/17 06/13/17 06/14/17 06:59 06:59 06:59 Intake Total 950 1230 Output Total 120 Balance 830 1230 Result Diagrams: 06/13/17 04:28 06/13/17 04:28 Radiology Reviewed by me: No EKG Reviewed by me: No Phys Exam - Physical Examination ill appearing, speech slurred HEENT: PERRLA, moist MMs, sclera anicteric, 2+ tonsils Neck: no nodes, no JVD, supple, full ROM Respiratory: no wheezing, no rales, no rhonchi, clear to auscultation bilateral Cardiovascular: RRR, no significant murmur, no rub Gastrointestinal: soft, no distention, positive bowel sounds TTP LUQ, LLQ Musculoskeletal: pulses present, edema present Neurological: moves all 4 limbs Lymphatic: no nodes Deviation from normal: depressed alertless, not able to answer questions Skin: no rash, normal turgor, cap refill <2 seconds Dx/Plan (1) Healthcare-associated pneumonia Code(s): J18.9 - PNEUMONIA, UNSPECIFIED ORGANISM Status: Acute Comment: LLL , CT abdomen showed lower lobe infiltrate, No WBC elevation noted. Chest xray two view showed no infiltrtae. Will continue with Nebs. On abx (2) Acute diverticulitis of intestine Code(s): K57.92 - DVTRCLI OF INTEST, PART UNSP, W/O PERF OR ABSCESS W/O BLEED Status: Chronic Comment: complicated, with microabscess/perforation (3) Chronic atrial fibrillation Code(s): I48.2 - CHRONIC ATRIAL FIBRILLATION Status: Chronic Comment: s/p Watchman device (4) Hyperlipidemia Code(s): E78.5 - HYPERLIPIDEMIA, UNSPECIFIED Status: Chronic Qualifiers: Hyperlipidemia type: unspecified Qualified Code(s): E78.5 - Hyperlipidemia , unspecified (5) Hypertension Code(s): I10 - ESSENTIAL (PRIMARY) HYPERTENSION Status: Chronic Qualifiers: Comment: Stbale. At goal,. continue home Meds. (6) Hypothyroidism Code(s): E03.9 - HYPOTHYROIDISM, UNSPECIFIED Status: Chronic Qualifiers: Hypothyroidism type: unspecified Qualified Code(s): E03.9 - Hypothyroidism , unspecified (7) Sjogren's syndrome Code(s): M35.00 - SICCA SYNDROME, UNSPECIFIED Status: Chronic Qualifiers: Sjogren's organ involvement: unspecified organ involvement Qualified Code(s ): M35.00 - Sicca syndrome, unspecified Comment: Continue to monitor no use of Steroids yet. (8) Acute metabolic encephalopathy Code(s): G93.41 - METABOLIC ENCEPHALOPATHY Status: Acute Comment: IV fluids , hold sedatives, watch labs (9) Hypomagnesemia Code(s): E83.42 - HYPOMAGNESEMIA Status: Acute Comment: replace, recheck - Plan cont current plan of care, continue antibiotics, PT/OT, respiratory therapy * .
[2017-06-13] MEDS: Sodium Chloride 0.9% 1,000 ML IV SCH (13:41)
[2017-06-13] MEDS: Atorvastatin Calcium 20 MG TAB PO SCH (21:06)
[2017-06-14] MEDS: Sodium Chloride 0.9% 1,000 ML IV SCH ×3 (01:00→15:20)
[2017-06-14 05:51] LABS: #Eosinphils 0.6 thou/uL (0.0-0.7); #Lymphocytes 2.9 thou/uL (1.20-3.40); #Monocytes 1.2 thou/uL (0.11-0.59); #Neutrophils 5.8 thou/uL (1.40-6.50); %Basophils 0.5 % (0.0-1.0); %Eosinophils 5.6 % (0.0-10.0); %Lymphocytes 27.7 % (21.0-51.0); %Monocytes 11.1 % (0.0-10.0); %Neutrophils 55.1 % (42.0-75.0); Hemoglobin 11.6 g/dL (12.0-16.0); Mean Corpuscular HGB CONC 33.2 g/dL (32.0-36.0); Mean Corpuscular Hemoglobin 31.6 pg (27.0-31.0); Mean Corpuscular Volume 95.1 fl (81.0-99.0); Mean Platelet Volume 7.3 fL (7.4-10.4); Platelet Count 350 thou/uL (130-400); RBC Distribution Width 13.5 % (11.5-14.5); Red Blood Cell (RBC) Count 3.67 mill/uL (4.20-5.40); White Blood Cell (WBC) Count 10.5 thou/uL (4.8-10.8)
[2017-06-14 06:03] LABS: Anion Gap 8 mmol/L (10-20); BUN (Urea Nitrogen) 9 mg/dL (9.8-20.1); Calc. Creatinine Clearance 85 mL/min (70-130); Calcium 10.5 mg/dL (7.8-10.44); Carbon Dioxide 25 mmol/L (23-31); Chloride 101 mmol/L (98-107); Estimated GFR-MDRD Greater than 90; Glucose 91 mg/dL (83-110); Magnesium 1.6 mg/dL (1.6-2.6); Potassium 3.9 mmol/L (3.5-5.1); Sodium 130 mmol/L (136-145)
[2017-06-14] MEDS: Sucralfate 1 GM TAB PO SCH ×4 (09:02→20:22)
[2017-06-14] MEDS: Enoxaparin Sodium 40 MG/0.4 ML SYRINGE SC SCH (09:07)
[2017-06-14] MEDS: Ondansetron HCl/PF 4 MG/2 ML Vial IVP PRN (09:15)
[2017-06-14] MEDS: Labetalol HCl 100 MG/20 ML VIAL SLOW IVP PRN (09:20)
[2017-06-14] MEDS: Carvedilol 3.125 MG TAB PO SCH ×2 (10:19→17:56)
[2017-06-14] MEDS: Mesalamine DR 400 mg Capsule PO SCH ×3 (10:19→20:21)
[2017-06-14] MEDS: Propranolol 60 MG TAB PO SCH ×3 (10:19→20:19)
[2017-06-14] MEDS: Famotidine 20 MG TAB PO SCH ×2 (10:19→20:22)
[2017-06-14] MEDS: Folic Acid 1 MG TAB PO SCH (10:19)
[2017-06-14] MEDS: Docusate 100 MG CAP PO SCH ×2 (10:20→20:22)
[2017-06-14] MEDS: Thyroid 60 MG TAB PO SCH (10:20)
[2017-06-14] MEDS: hydrALAZINE 25 MG TAB PO SCH ×3 (10:20→20:19)
[2017-06-14] MEDS: Saccharomyces boulardii 250 MG CAP PO SCH (10:20)
[2017-06-14] MEDS: Lisinopril 5 MG TAB PO SCH (10:20)
[2017-06-14] MEDS: Potassium Chloride 10 MEQ TAB PO SCH ×2 (10:21→20:24)
[2017-06-14] MEDS: Aspirin 81 mg Enteric Coated Tablet PO SCH (10:21)
[2017-06-14] MEDS ORDERED: methylPREDNISolone Sod Succ/PF 125 MG/2 ML VIAL IVP SCH (10:45)
--- NOTE | 2017-06-14 12:46 | PQF ---
CLINICAL DOCUMENTATION IMPROVEMENT CLARIFICATION FORM: ICD-10 Updated PLEASE DO AN ADDENDUM TO THE PROGRESS NOTE WITH ANY DOCUMENTATION UPDATES OR ADDITIONS AND CARRY THROUGH TO DC SUMMARY. THANK YOU. DATE: 06/14/17 ATTN : DR. CLARK Please exercise your independent, professional judgment in responding to the clarification form. Clinical indicators are provided on the bottom of this form for your review Please check appropriate box(s) to clarify if the following diagnosis has been ruled in our ruled out: NSTEMI [ ] Ruled in diagnosis [ ] Continue to treat [ ] Resolved [ x ] Ruled out diagnosis [ ] Other diagnosis [ ] Unable to determine In addition, please specify: Present on Admission (POA): [ ] Yes [ ] No [ ] Unable to determine For continuity of documentation, please document condition throughout progress notes and discharge summary. Thank You. CLINICAL INDICATORS - SIGNS / SYMPTOMS / LABS PROGRESS NOTE 06/11: "NSTEMI" PROGRESS NOTE 06/12: "DEMAND ISCHEMIA" TROP 0.021 / 0.030 / 0.027 RISKS: CHRONIC ATRIAL FIBRILLATION TREATMENT: CARDIOLOGY CONSULT SERIAL LABS (This form is maintained as a part of the permanent medical record) [employer] 2015 [employer]. All Rights Reserved CHRISTINA [email or web address] Office: [phone] [facility]
--- NOTE | 2017-06-14 14:39 | PDOC.PN ---
- Subjective Encounter Start Date: 06/14/17 Encounter Start Time: 08:45 -: non-verbal Pt was confused an mumbling yesterday AM, but per noted, close to baseline in afternoon. Son at bedside, during my second visit today, states at 4pm she wasn much better than now Now she is the same as yesteday AM. Nauseated, vomited at least once since 0700. she is groaning, holding her belly. Denies pain, no Fevers or chills, no overnight acute events Review of her meds show she is on chronic steroids and hasnt been restarted or given stress doses here ROS nor obtainable - Objective Resuscitation Status: Resuscitation Status DNR:Do Not Resuscitate MAR Reviewed: Yes Vital Signs & Weight: Vital Signs (12 hours) Temp Pulse Resp BP BP Pulse Ox 06/14/17 10:49 100.4 F H 06/14/17 10:20 96 165/76 H 06/14/17 10:16 165/76 H 06/14/17 09:20 96 189/70 H 06/14/17 08:00 98.7 F 96 16 06/14/17 07:52 98.7 F 96 24 H 182/65 H 95 Weight Admit Weight 148 lb Weight 148 lb I&O: 06/13/17 06/14/17 06/15/17 06:59 06:59 06:59 Intake Total 1230 2450 Output Total 1 Balance 1230 2449 Result Diagrams: 06/14/17 05:24 06/14/17 05:24 Radiology Reviewed by me: Yes EKG Reviewed by me: Yes Phys Exam - Physical Examination Constitutional: NAD HEENT: PERRLA, moist MMs, sclera anicteric, oral pharynx no lesions Neck: no nodes, no JVD, supple, full ROM Respiratory: no wheezing, no rales, no rhonchi, clear to auscultation bilateral Cardiovascular: RRR, no significant murmur, no rub Gastrointestinal: soft, non-tender, no distention, positive bowel sounds Musculoskeletal: pulses present, edema present Neurological: non-focal, normal sensation, moves all 4 limbs Lymphatic: no nodes Deviation from normal: confused, sleepy, uncomfortable Skin: cap refill <2 seconds Deviation from normal: chronic crepe skin changes from steroids Dx/Plan (1) Healthcare-associated pneumonia Code(s): J18.9 - PNEUMONIA, UNSPECIFIED ORGANISM Status: Acute Comment: LLL , CT abdomen showed lower lobe infiltrate, No WBC elevation noted. Chest xray two view showed no infiltrtae. Will continue with Nebs. On abx (2) Acute diverticulitis of intestine Code(s): K57.92 - DVTRCLI OF INTEST, PART UNSP, W/O PERF OR ABSCESS W/O BLEED Status: Chronic Comment: complicated, with microabscess/perforation. Improved on current CT, compelte po abx course (3) Chronic atrial fibrillation Code(s): I48.2 - CHRONIC ATRIAL FIBRILLATION Status: Chronic Comment: s/p Watchman device (4) Hyperlipidemia Code(s): E78.5 - HYPERLIPIDEMIA, UNSPECIFIED Status: Chronic Qualifiers: Hyperlipidemia type: unspecified Qualified Code(s): E78.5 - Hyperlipidemia , unspecified (5) Hypertension Code(s): I10 - ESSENTIAL (PRIMARY) HYPERTENSION Status: Chronic Qualifiers: Comment: Stbale. At goal,. continue home Meds. (6) Hypothyroidism Code(s): E03.9 - HYPOTHYROIDISM, UNSPECIFIED Status: Chronic Qualifiers: Hypothyroidism type: unspecified Qualified Code(s): E03.9 - Hypothyroidism , unspecified (7) Sjogren's syndrome Code(s): M35.00 - SICCA SYNDROME, UNSPECIFIED Status: Chronic Qualifiers: Sjogren's organ involvement: unspecified organ involvement Qualified Code(s ): M35.00 - Sicca syndrome, unspecified Comment: Continue to monitor no use of Steroids yet. (8) Acute metabolic encephalopathy Code(s): G93.41 - METABOLIC ENCEPHALOPATHY Status: Acute Comment: IV fluids , hold sedatives, watch labs (9) Hypomagnesemia Code(s): E83.42 - HYPOMAGNESEMIA Status: Resolved Comment: replaced, recheck (10) Adrenal crisis Code(s): E27.2 - ADDISONIAN CRISIS Status: Acute Comment: suspect she may be in adrenal crisis due to abrupt cessation of steroids. Will start on hydrocortisone now and monitor - Plan * .
[2017-06-14] MEDS ORDERED: Hydrocortisone Sod Succ/PF 250 mg/2 ml Vial SLOW IVP SCH (15:15)
[2017-06-14] MEDS: Atorvastatin Calcium 20 MG TAB PO SCH (20:22)
[2017-06-14] MEDS: HYDROcodone/Acetaminophen 5/325 mg Tablet PO PRN (22:07)
[2017-06-15] MEDS: Sodium Chloride 0.9% 1,000 ML IV SCH ×3 (02:17→22:56)
[2017-06-15 05:09] LABS: #Eosinphils 0.1 thou/uL (0.0-0.7); #Lymphocytes 1.6 thou/uL (1.20-3.40); #Monocytes 0.3 thou/uL (0.11-0.59); #Neutrophils 5.8 thou/uL (1.40-6.50); %Basophils 0.1 % (0.0-1.0); %Eosinophils 0.9 % (0.0-10.0); %Lymphocytes 20.3 % (21.0-51.0); %Monocytes 4.1 % (0.0-10.0); %Neutrophils 74.7 % (42.0-75.0); Mean Corpuscular HGB CONC 33.1 g/dL (32.0-36.0); Mean Corpuscular Hemoglobin 31.6 pg (27.0-31.0); Mean Corpuscular Volume 95.6 fl (81.0-99.0); Mean Platelet Volume 7.2 fL (7.4-10.4); Platelet Count 298 thou/uL (130-400); RBC Distribution Width 13.5 % (11.5-14.5); Red Blood Cell (RBC) Count 3.15 mill/uL (4.20-5.40); White Blood Cell (WBC) Count 7.7 thou/uL (4.8-10.8)
[2017-06-15 06:30] LABS: Albumin 2.4 g/dL (3.4-4.8)
[2017-06-15 06:31] LABS: Chloride 104 mmol/L (98-107)
[2017-06-15 06:32] LABS: Calcium 10.3 mg/dL (7.8-10.44); Magnesium 1.2 mg/dL (1.6-2.6); Potassium 3.6 mmol/L (3.5-5.1); Sodium 133 mmol/L (136-145)
[2017-06-15 06:33] LABS: Globulin 3.3 g/dL (2.4-3.5); Glucose 171 mg/dL (83-110); Protein, Total 5.7 g/dL (6.0-8.3)
[2017-06-15 06:34] LABS: Anion Gap 13 mmol/L (10-20); Carbon Dioxide 20 mmol/L (23-31)
[2017-06-15 06:35] LABS: Bilirubin, Total 0.5 mg/dL (0.2-1.2)
[2017-06-15 06:36] LABS: Alkaline Phosphatase 63 U/L (40-150); Calc. Creatinine Clearance 82 mL/min (70-130); Estimated GFR-MDRD Greater than 90
[2017-06-15 06:37] LABS: BUN (Urea Nitrogen) 11 mg/dL (9.8-20.1)
[2017-06-15 06:38] LABS: AST (SGOT) 16 U/L (5-34)
[2017-06-15 06:39] LABS: ALT (SGPT) Less than 7 U/L (8-55)
[2017-06-15] MEDS ORDERED: Magnesium 2 GM/NS 0.9% 100 ML 4 GM in Premix Bag 1 BAG IVPB SCH (07:30)
[2017-06-15] MEDS ORDERED: Magnesium Sulfate 4 GM, Admixture Fee 1 EACH in Sodium Chloride 0.9% 250 ML 250 ML IVPB SCH (07:30)
[2017-06-15] MEDS: Folic Acid 1 MG TAB PO SCH (09:39)
[2017-06-15] MEDS: hydrALAZINE 25 MG TAB PO SCH ×3 (09:39→20:24)
[2017-06-15] MEDS: Docusate 100 MG CAP PO SCH ×2 (09:39→20:24)
[2017-06-15] MEDS: Potassium Chloride 10 MEQ TAB PO SCH ×2 (09:39→20:25)
[2017-06-15] MEDS: Aspirin 81 mg Enteric Coated Tablet PO SCH (09:39)
[2017-06-15] MEDS: Lisinopril 5 MG TAB PO SCH (09:39)
[2017-06-15] MEDS: Carvedilol 3.125 MG TAB PO SCH ×2 (09:40→17:27)
[2017-06-15] MEDS: Sucralfate 1 GM TAB PO SCH ×4 (09:40→20:25)
[2017-06-15] MEDS: Enoxaparin Sodium 40 MG/0.4 ML SYRINGE SC SCH (09:40)
[2017-06-15] MEDS: Famotidine 20 MG TAB PO SCH ×2 (09:40→20:25)
[2017-06-15] MEDS: Mesalamine DR 400 mg Capsule PO SCH ×3 (09:40→20:25)
[2017-06-15] MEDS: Propranolol 60 MG TAB PO SCH ×3 (09:40→20:25)
[2017-06-15] MEDS: Saccharomyces boulardii 250 MG CAP PO SCH (09:40)
[2017-06-15] MEDS: Thyroid 60 MG TAB PO SCH (09:47)
[2017-06-15] MEDS ORDERED: hydrALAZINE 25 MG TAB PO SCH (10:15)
[2017-06-15] MEDS: Labetalol HCl 100 MG/20 ML VIAL SLOW IVP PRN (12:25)
--- NOTE | 2017-06-15 15:25 | PDOC.PN ---
- Subjective Encounter Start Date: 06/15/17 Encounter Start Time: 08:00 - Objective Resuscitation Status: Resuscitation Status DNR:Do Not Resuscitate Vital Signs & Weight: Vital Signs (12 hours) Temp Pulse Resp BP BP Pulse Ox 06/15/17 12:32 108 H 198/78 H 06/15/17 12:25 108 H 198/78 H 06/15/17 12:00 98.5 F 108 H 20 198/78 H 92 L 06/15/17 09:39 114 H 193/87 H 06/15/17 08:00 98.0 F 114 H 18 193/87 H 93 L Weight Admit Weight 148 lb Weight 148 lb I&O: 06/14/17 06/15/17 06/16/17 06:59 06:59 06:59 Intake Total 2450 1140 Output Total 1 Balance 2449 1140 Result Diagrams: 06/15/17 04:38 06/15/17 06:02 Dx/Plan (1) Healthcare-associated pneumonia Code(s): J18.9 - PNEUMONIA, UNSPECIFIED ORGANISM Status: Acute Comment: LLL , CT abdomen showed lower lobe infiltrate, No WBC elevation noted. Chest xray two view showed no infiltrtae. Will continue with Nebs. On abx (2) Acute diverticulitis of intestine Code(s): K57.92 - DVTRCLI OF INTEST, PART UNSP, W/O PERF OR ABSCESS W/O BLEED Status: Chronic Comment: complicated, with microabscess/perforation. Improved on current CT, compelte po abx course (3) Chronic atrial fibrillation Code(s): I48.2 - CHRONIC ATRIAL FIBRILLATION Status: Chronic Comment: s/p Watchman device (4) Hyperlipidemia Code(s): E78.5 - HYPERLIPIDEMIA, UNSPECIFIED Status: Chronic Qualifiers: Hyperlipidemia type: unspecified Qualified Code(s): E78.5 - Hyperlipidemia , unspecified (5) Hypertension Code(s): I10 - ESSENTIAL (PRIMARY) HYPERTENSION Status: Chronic Qualifiers: Comment: Stbale. At goal,. continue home Meds. (6) Hypothyroidism Code(s): E03.9 - HYPOTHYROIDISM, UNSPECIFIED Status: Chronic Qualifiers: Hypothyroidism type: unspecified Qualified Code(s): E03.9 - Hypothyroidism , unspecified (7) Sjogren's syndrome Code(s): M35.00 - SICCA SYNDROME, UNSPECIFIED Status: Chronic Qualifiers: Sjogren's organ involvement: unspecified organ involvement Qualified Code(s ): M35.00 - Sicca syndrome, unspecified Comment: Continue to monitor no use of Steroids yet. (8) Acute metabolic encephalopathy Code(s): G93.41 - METABOLIC ENCEPHALOPATHY Status: Acute Comment: IV fluids , hold sedatives, watch labs (9) Hypomagnesemia Code(s): E83.42 - HYPOMAGNESEMIA Status: Resolved Comment: replaced, recheck (10) Adrenal crisis Code(s): E27.2 - ADDISONIAN CRISIS Status: Acute Comment: suspect she may be in adrenal crisis due to abrupt cessation of steroids. Will start on hydrocortisone now and monitor - Plan * .
[2017-06-15] MEDS: HYDROcodone/Acetaminophen 5/325 mg Tablet PO PRN (17:29)
[2017-06-15] MEDS: Atorvastatin Calcium 20 MG TAB PO SCH (20:25)
[2017-06-15] MEDS: Ondansetron HCl/PF 4 MG/2 ML Vial IVP PRN (21:27)
[2017-06-15] MEDS: Mag-Al 1200 mg/1200 mg/30 ML UDCUP PO PRN (22:56)
[2017-06-16] MEDS: Labetalol HCl 100 MG/20 ML VIAL SLOW IVP PRN (06:29)
[2017-06-16 08:06] LABS: #Lymphocytes 1.4 thou/uL (1.20-3.40); #Monocytes 0.6 thou/uL (0.11-0.59); #Neutrophils 7.6 thou/uL (1.40-6.50); %Eosinophils 0.4 % (0.0-10.0); %Lymphocytes 14.9 % (21.0-51.0); %Monocytes 5.8 % (0.0-10.0); %Neutrophils 78.9 % (42.0-75.0); Hemoglobin 10.5 g/dL (12.0-16.0); Mean Corpuscular HGB CONC 32.4 g/dL (32.0-36.0); Mean Corpuscular Volume 95.4 fl (81.0-99.0); Mean Platelet Volume 7.2 fL (7.4-10.4); Platelet Count 350 thou/uL (130-400); RBC Distribution Width 13.6 % (11.5-14.5); Red Blood Cell (RBC) Count 3.39 mill/uL (4.20-5.40); White Blood Cell (WBC) Count 9.7 thou/uL (4.8-10.8)
[2017-06-16 08:17] LABS: ALT (SGPT) 7 U/L (8-55); AST (SGOT) 17 U/L (5-34); Albumin 2.6 g/dL (3.4-4.8); Alkaline Phosphatase 57 U/L (40-150); Anion Gap 13 mmol/L (10-20); BUN (Urea Nitrogen) 11 mg/dL (9.8-20.1); Bilirubin, Total 0.4 mg/dL (0.2-1.2); Calc. Creatinine Clearance 78 mL/min (70-130); Calcium 9.1 mg/dL (7.8-10.44); Carbon Dioxide 20 mmol/L (23-31); Chloride 104 mmol/L (98-107); Estimated GFR-MDRD 89; Globulin 3.2 g/dL (2.4-3.5); Glucose 215 mg/dL (83-110); Magnesium 1.9 mg/dL (1.6-2.6); Potassium 3.6 mmol/L (3.5-5.1); Protein, Total 5.8 g/dL (6.0-8.3); Sodium 133 mmol/L (136-145)
[2017-06-16] MEDS: Docusate 100 MG CAP PO SCH (09:29)
[2017-06-16] MEDS: hydrALAZINE 25 MG TAB PO SCH ×2 (09:29→14:49)
[2017-06-16] MEDS: Saccharomyces boulardii 250 MG CAP PO SCH (09:29)
[2017-06-16] MEDS: Sucralfate 1 GM TAB PO SCH ×3 (09:29→17:46)
[2017-06-16] MEDS: Propranolol 60 MG TAB PO SCH ×2 (09:29→14:48)
[2017-06-16] MEDS: Folic Acid 1 MG TAB PO SCH (09:30)
[2017-06-16] MEDS: Mesalamine DR 400 mg Capsule PO SCH ×2 (09:30→14:48)
[2017-06-16] MEDS: Aspirin 81 mg Enteric Coated Tablet PO SCH (09:30)
[2017-06-16] MEDS: Potassium Chloride 10 MEQ TAB PO SCH (09:30)
[2017-06-16] MEDS: Carvedilol 3.125 MG TAB PO SCH ×2 (09:30→17:46)
[2017-06-16] MEDS: Famotidine 20 MG TAB PO SCH (09:30)
[2017-06-16] MEDS: Lisinopril 5 MG TAB PO SCH (09:30)
[2017-06-16] MEDS: Thyroid 60 MG TAB PO SCH (09:30)
[2017-06-16] MEDS: Enoxaparin Sodium 40 MG/0.4 ML SYRINGE SC SCH (09:31)
[2017-06-16 11:36] VITALS: TEMP 98.5
[2017-06-16] MEDS ORDERED: predniSONE 20 MG TAB PO SCH (11:45)
[2017-06-16] MEDS ORDERED: Furosemide 40 MG/4 ML VIAL SLOW IVP SCH (11:45)
[2017-06-16 14:59] VITALS: BP 175/95
--- NOTE | 2017-06-16 15:54 | DIS ---
DATE OF ADMISSION: 06/09/2017 DATE OF DISCHARGE: 06/16/2017 PRIMARY CARE PHYSICIAN: No primary care physician listed. DISCHARGE DIAGNOSES: 1. Metabolic encephalopathy. 2. Acute adrenal crisis. 3. Healthcare-associated pneumonia. 4. History of diverticulitis with a contained perforation. 5. Essential hypertension. 6. Sjogren syndrome. 7. Chronic steroid dependence. 8. Intractable nausea and vomiting. 9. Chronic atrial fibrillation. 10. Hyperlipidemia. 11. Hypothyroidism. 12. Osteoarthritis. CONSULTATIONS: None. PROCEDURES: None. HISTORY OF PRESENT ILLNESS: Ms. Carrera is a pleasant 76-year-old female who came to the Emergency Dep artment on 06/09/2017 with nausea, vomiting and abdominal pain. She had recently been admitted to our facility with diverticulitis and contained perforation. She wa s seen by General Surgery at that time and felt not need a surgical correction. She was discharged t o rehab at [facility] and subsequently to [facility]. She was treated with antibiotics and doing well and developed a sudden onset of abdominal pain in the left upper quadrant and severe n ausea and vomiting and was immediately brought to the Emergency Department for evaluation. In our ER, the CT of the abdomen was done that showed a history of microperforation, but no evidence of perforation or fluid and certainly no free air. It did show left lower lobe pneumonia. She was f ound to have an elevated white blood cell count and tachypnea and was subsequently admitted for healt hcare-associated pneumonia. HOSPITAL COURSE: The patient was seen and examined by Dr. Kimani Baltazar. She was started on broad-spe ctrum antibiotics with levofloxacin and cefepime appropriately. She was taken off of her amoxicillin as she was covered well with her other antibiotics, and was restarted on her home medications. Overnight on 06/09-06/10, per the note, she was feeling slightly better. She was still having some n ausea, but no abdominal pain and management was continued. Apparently, she got a dose of Librium ove rnight that first night due to mistake of the nurse, but was otherwise unharmed. On 06/11/2017, she was more awake and alert. She was complaining of some chest pain and EKG showed right bundle branch block, other nonspecific changes and unchanged from prior. No changes were made to continue antibiot ics. Creatinine was normal and blood counts were normal. On 06/12/2017, I took the case over, patient was awake and alert in the morning. She has no shortnes s of breath or wheezing and was feeling better. PT, OT was consulted. The patient was seen by case management to look for placement. She was originally not agreeable to go to the [place]; however, afte r me talking to her, she was also and was also agreeable going to [facility]. Late that afternoon, she w as approved to [facility] and was continued in the hospital overnight. 06/13/2017, she was much more somnolent. She was difficult to arouse and nauseated. She was continu ed on her regular medications and watched, and by the afternoon per notes was improved, though her so n at the bedside said that she was still somewhat somnolent and out of it. On 06/14/2017, some more of the same. Review of her chart showed that she is on chronic methylpredni solone for her Sjogren syndrome and had been abruptly stopped on admission. On review, she had becom e somewhat hyponatremic, she was having nausea and vomiting, she was having decreased level of consci ous and appeared to be in acute adrenal insufficiency. She was started on hydrocortisone x1 and Solu -Medrol IV. Overnight, on 06/14-06/15, she dramatically improved, was alert and oriented x3 in the m orning of 06/15. She was continued on her Solu-Medrol overnight and today 06[facility]16, [facility] She was transitioned to oral prednisone on a slow taper, stress dosing. She was approved for rehabilitation, she did well with physical therapy and was stable for discharge to [facility] for rehabi litation. PHYSICAL EXAMINATION: The patient was seen and examined on the day of discharge. Discharge plan and disposition was discussed with the patient [id number] at the bedside. DISCHARGE MEDICATIONS: 1. Aspirin 81 mg p.o. daily. 2. Folic acid 20 mg p.o. daily. 3. Hydralazine 100 mg p.o. t.i.d. 4. Mesalamine 800 mg p.o. t.i.d. 5. Propranolol 60 mg p.o. t.i.d. 6. Florastor 250 mg p.o. daily. 7. [place] Thyroid 60 mg p.o. q.a.m. 8. Tylenol 650 mg p.o. q.4 hours p.r.n. 9. Albuterol sulfate nebulizers 2.5 mg nebulized q.4 hours as needed for shortness of breath or whee zing. 10. Maalox 30 mL t.i.d. p.r.n. indigestion. 11. Bisacodyl 10 mg p.o. daily p.r.n. constipation. 12. Buspirone 10 mg p.o. daily. 13. Carvedilol 3.125 mg p.o. b.i.d. 14. Clonidine 0.3 mg p.o. t.i.d. 15. Levofloxacin 500 mg p.o. q.a.m. for 7 more days. 16. Lisinopril 5 mg p.o. daily. 17. Prednisone 20 mg p.o. q.a.m. to decrease by 5 mg per week until taper back down to 5 mg per day, which is an equivalent dose of her methylprednisolone. 18. Crestor 10 mg p.o. daily. 19. Sucralfate 1 gram p.o. q.i.d. a.c. and at bedtime. DISCHARGE ACTIVITY: Per cardiopulmonary limits. DISCHARGE DIET: Heart healthy recommended. DISCHARGE CONDITION: Stable. DISCHARGE DISPOSITION: She will be discharged to [facility] for rehabilitation. FOLLOWUP APPOINTMENTS: The patient needs to establish with the primary care physician, Dr. Grady Tim.
[2017-06-17] MEDS ORDERED: predniSONE 20 MG TAB PO SCH (08:00)
--- NOTE | 2017-06-17 17:23 | EKG ---
Test Reason : Blood Pressure : / mmHG Vent. Rate : 109 BPM Atrial Rate : 109 BPM P-R Int : 194 ms QRS Dur : 088 ms QT Int : 334 ms P-R-T Axes : 089 056 061 degrees QTc Int : 449 ms Sinus tachycardia Septal infarct , age undetermined Abnormal ECG lateral ischemia Confirmed by FOUZIA TATE, PRINCESS Iniguez ([id number]), science editor BRENDEN AVINA ([id number]) on 06/17/2017 5:23:14 PM Referred By: Confirmed By:PRINCESS FRAGOSO MD
--- NOTE | 2017-06-18 16:37 | EKG ---
Test Reason : Blood Pressure : / mmHG Vent. Rate : 084 BPM Atrial Rate : 084 BPM P-R Int : 190 ms QRS Dur : 092 ms QT Int : 394 ms P-R-T Axes : 067 012 076 degrees QTc Int : 465 ms Normal sinus rhythm Incomplete right bundle branch block Nonspecific ST abnormality Abnormal ECG When compared with ECG of 28-MAY-2017 11:36, ST no longer depressed in Inferior leads T wave amplitude has decreased in Inferior leads T wave amplitude has decreased in Anterior leads Confirmed by Benny LEVY ([id number]) on 06/18/2017 4:36:59 PM Referred By: LATONYA Confirmed By:Benny LEVY
== END 2017-06-16 19:22 | DRG 193 ==
LOC: ERS 12:23 → T4-B 15:00 → OBSVTOIN 06-11 12:27
PROVIDERS: ADMIT Family Medicine; ATTEND Family Medicine
DX: J18.9 Pneumonia, unspecified organism (principal); G93.41 Metabolic encephalopathy; E27.2 Addisonian crisis; I24.8 Other forms of acute ischemic heart disease; E83.42 Hypomagnesemia; E87.1 Hypo-osmolality and hyponatremia; K57.92 Diverticulitis of intestine, part unspecified, without perforation or abscess without bleeding; I48.2 Chronic atrial fibrillation; M35.00 Sjogren syndrome, unspecified; I10 Essential (primary) hypertension; Z79.52 Long term (current) use of systemic steroids; E78.5 Hyperlipidemia, unspecified; E03.9 Hypothyroidism, unspecified; M19.90 Unspecified osteoarthritis, unspecified site; Z66 Do not resuscitate
CPT/HCPCS: 36415; 71045; 74177; 80048; 80053; 82553; 83735; 83880; 84484; 85025; 87040; 87070; 87205; 87804; 93005; 93010; 94640; 96374; 96375; A4216; G8978-GP-CM; G8979-GP-CK; G8987-GO-CM; G8988-GO-CK; J0360; J0692; J1650; J1720; J1940; J1956; J2060; J2405; J2543; J2920; J2930; J3475; J7050; J7506; J7611; S0028

== ENCOUNTER 2017-07-05 10:50 | Outpatient (CLI) | payer MEDICARE, BC ==
[2017-07-05] MEDS ORDERED: Iopamidol 370 76% 100 ML VIAL ONE (11:40)
--- NOTE | 2017-07-05 14:01 | CT ---
CT ABDOMEN AND PELVIS WITH IV CONTRAST: INDICATIONS: Follow up diverticulitis. COMPARISON: Prior exam, dated 06/09/2017. FINDINGS: There is a small, loculated left-sided pleural effusion with compressive atelectasis of the left lowe r lobe. There is a tiny, more simple appearing right sided pleural effusion with mild right basilar atelectasis. There is a mild pericardial effusion. No focal hepatic lesion is evident. The gallbladder is surgically absent. There is a calcified granuloma and small cysts seen within the spleen. The kidneys are normal appeari ng. The pancreas is normal appearing. The adrenal glands are normal appearing. There is severe vas cular calcification involving the abdominopelvic vasculature. Previously seen pericolonic inflammatory stranding and wall thickening involving the descending colon has improved from the prior examination, consisting with resolved active diverticulitis. The mild a mount of fluid and inflammatory stranding seen over the left pericolic gutter has also significantly decreased in prominence. No drainable fluid collection is evident. The bladder, rectum, and perirec preston soft tissues are unremarkable. No definite acute osseous abnormality is evident. There is diffuse osteopenia. There is stable mild wedge compression abnormality with vertebroplasty change involving L3. The moderate to severe wedge compression abnormality involving L1 is stable. The wedge compression abnormality with vertebroplas ty change involving T11 and T12 is stable. There is mild degenerative thoracolumbar scoliosis. IMPRESSION: Improvement in the previously seen descending colon diverticulitis. No complications grossly evident . Chronic findings as above. POS: [facility]
== END 2017-07-05 10:51 | disposition home or self-care (01) ==
LOC: CT 10:50
PROVIDERS: ATTEND Family Medicine
DX: K57.92 Diverticulitis of intestine, part unspecified, without perforation or abscess without bleeding (principal); J18.9 Pneumonia, unspecified organism; I48.2 Chronic atrial fibrillation; M62.81 Muscle weakness (generalized); K59.00 Constipation, unspecified; K21.0 Gastro-esophageal reflux disease with esophagitis; I10 Essential (primary) hypertension; E78.5 Hyperlipidemia, unspecified; E03.9 Hypothyroidism, unspecified; F33.8 Other recurrent depressive disorders; M35.00 Sjogren syndrome, unspecified; R52 Pain, unspecified; R12 Heartburn; R29.3 Abnormal posture; R53.83 Other fatigue; R26.2 Difficulty in walking, not elsewhere classified; R27.8 Other lack of coordination
CPT/HCPCS: 74177

== ENCOUNTER 2017-07-19 14:45 | Inpatient (IN) | payer MEDICARE, BC ==
[2017-07-19 15:38] LABS: #Basophils 0.1 thou/uL (0.0-0.2); #Eosinphils 0.1 thou/uL (0.0-0.7); #Lymphocytes 3.4 thou/uL (1.20-3.40); #Neutrophils 7.8 thou/uL (1.40-6.50); %Basophils 0.7 % (0.0-1.0); %Eosinophils 0.7 % (0.0-10.0); %Lymphocytes 27.5 % (21.0-51.0); %Monocytes 8.2 % (0.0-10.0); %Neutrophils 62.9 % (42.0-75.0); Hemoglobin 12.1 g/dL (12.0-16.0); Mean Corpuscular HGB CONC 32.6 g/dL (32.0-36.0); Mean Corpuscular Hemoglobin 29.8 pg (27.0-31.0); Mean Corpuscular Volume 91.6 fl (81.0-99.0); Mean Platelet Volume 6.6 fL (7.4-10.4); Platelet Count 385 thou/uL (130-400); RBC Distribution Width 14.1 % (11.5-14.5); Red Blood Cell (RBC) Count 4.07 mill/uL (4.20-5.40); White Blood Cell (WBC) Count 12.4 thou/uL (4.8-10.8)
[2017-07-19 16:02] LABS: ALT (SGPT) 9 U/L (8-55); AST (SGOT) 19 U/L (5-34); Albumin 3.4 g/dL (3.4-4.8); Alkaline Phosphatase 61 U/L (40-150); Anion Gap 10 mmol/L (10-20); BUN (Urea Nitrogen) 8 mg/dL (9.8-20.1); Bilirubin, Total 0.7 mg/dL (0.2-1.2); Calc. Creatinine Clearance 0 mL/min (70-130); Carbon Dioxide 35 mmol/L (23-31); Chloride 93 mmol/L (98-107); Estimated GFR-MDRD 70; Globulin 3.1 g/dL (2.4-3.5); Glucose 167 mg/dL (83-110); Protein, Total 6.5 g/dL (6.0-8.3); Sodium 135 mmol/L (136-145)
[2017-07-19 16:09] LABS: Calcium 13.8 mg/dL (7.8-10.44); Potassium 2.9 mmol/L (3.5-5.1)
--- NOTE | 2017-07-19 16:09 | RAD ---
CHEST ONE VIEW 07/19/17 HISTORY: Cough, nausea and vomiting. COMPARISON: 06/09/17. FINDINGS: Portable upright chest demonstrates a normal cardiac silhouette. There is atherosclerosis of the aort a. Pulmonary vessels and hilum are normal. Costophrenic angles are clear. No consolidation or mass. No pneumothorax. Previous vertebroplasty changes again noted. IMPRESSION: 1. No acute cardiopulmonary process. 2. Atherosclerosis of the aorta. POS: [facility]
[2017-07-19] MEDS ORDERED: Ondansetron HCl/PF 4 MG/2 ML Vial ONE (17:13)
[2017-07-19 17:15] LABS: Bilirubin Small (Negative); Blood, Urine Negative (Negative); Clarity CLEAR (Clear); Glucose, Urine (Dipstick) Negative (Negative); Leukocyte Small (Negative); Nitrite Negative (Negative); Protein, Urine (Dipstick) Trace mg/dL (Neg-Trace)
[2017-07-19] MEDS ORDERED: NS 0.9% w/ 20 MEQ KCL 1,000 ML IV SCH (17:15)
[2017-07-19 17:17] LABS: Bacteria/HPF None Seen HPF (None Seen); Pathc Cast-AUWi Flag 1.76 (0-2.49); RBC/HPF 0-3 HPF (0-3)
[2017-07-19 17:28] LABS: Renal Epithelial None Seen HPF (0-3); Transitional Epithelial NONE SEEN HPF (0-3)
[2017-07-19] MEDS ORDERED: hydrALAZINE 20 MG/ML VIAL SLOW IVP PRN (18:32)
[2017-07-19] MEDS ORDERED: Acetaminophen 325 MG TAB PO PRN ×2 (19:56→20:00)
[2017-07-19] MEDS ORDERED: Ondansetron HCl/PF 4 MG/2 ML Vial IVP PRN ×2 (19:56→20:00)
[2017-07-19] MEDS ORDERED: Ondansetron ODT 4 MG TAB SL PRN (19:56)
[2017-07-19] MEDS ORDERED: HYDROcodone/Acetaminophen 10/325 mg Tablet PO PRN (20:00)
[2017-07-19] MEDS ORDERED: Ondansetron ODT 4 MG TAB PO PRN (20:00)
[2017-07-19 20:49] LABS: ALT (SGPT) 8 U/L (8-55); AST (SGOT) 16 U/L (5-34); Albumin 3.2 g/dL (3.4-4.8); Alkaline Phosphatase 56 U/L (40-150); Anion Gap 11 mmol/L (10-20); BUN (Urea Nitrogen) 8 mg/dL (9.8-20.1); Bilirubin, Total 0.6 mg/dL (0.2-1.2); Calc. Creatinine Clearance 0 mL/min (70-130); Carbon Dioxide 28 mmol/L (23-31); Chloride 101 mmol/L (98-107); Estimated GFR-MDRD 76; Globulin 2.7 g/dL (2.4-3.5); Glucose 113 mg/dL (83-110); Magnesium 1.3 mg/dL (1.6-2.6); Protein, Total 5.9 g/dL (6.0-8.3); Sodium 136 mmol/L (136-145)
[2017-07-19 20:52] LABS: Calcium 12.6 mg/dL (7.8-10.44)
[2017-07-19] MEDS: Sodium Chloride 0.9% 1,000 ML IV SCH (22:06)
--- NOTE | 2017-07-19 23:22 | HP ---
PRIMARY CARE PHYSICIAN: Dr. Nagy. DATE OF ADMISSION: 07/19/2017 TIME OF SERVICE: 1814 CHIEF COMPLAINT: Nausea, vomiting. HISTORY OF PRESENT ILLNESS: She has been at [facility] for rehabilitation since her discharge from the hospital in early June. She has been doing well, ambulating, but about 4 days ago, she started having increased nausea, vomiting, just feeling weak overall. She had gone to bed in several days and is getting weaker and weaker, so they brought her to the emergency department for evaluation. She was initially hospitalized for diverticulitis and sepsis. A repeat CT scan done on 07/05/2017 showed improvement of her prior diverticular disease. In the emergency department, she was given a liter of normal saline, she was noted to be hypokalemic on labs, elevated bicarbonate likely contraction alkalosis, and a slightly elevated white count of 12.4. Urinalysis largely unremarkable. Due to overall weakness and elevated calcium and low potassium, we were called for admission. Patient denies any chest pain or difficulty breathing, no nausea or vomiting at present. No diarrhea, no constipation. She says she has been found to have some diarrhea initially when her nausea started. Stated that since her decreased activity she would have increased edema to bilateral extremities. She asked the [facility] staff for some Lasix as 20 mg daily she was taking was not helping. She was increased over the next couple of days until she was getting 80 mg a day. PAST MEDICAL HISTORY: 1. Hyperlipidemia. 2. Sjogren syndrome. 3. Atrial fibrillation, chronic. 4. Hypothyroidism. 5. Hyperlipidemia. 6. Anxiety. PAST SURGICAL HISTORY: Includes, 1. Right ovary. 2. Ablation x2. 3. Cholecystectomy. 4. Hysterectomy with ovaries. 5. Thyroidectomy. 6. L3-L4 surgery. 7. IVC filter. HOME MEDICATIONS: 1. Aspirin 81 mg daily. 2. Folic acid 20 mg p.o. daily. 3. Hydralazine 100 mg p.o. t.i.d. 4. Mesalamine 800 mg p.o. t.i.d. 5. Propranolol 60 mg p.o. t.i.d. 6. Florastor 250 mg p.o. daily. 7. [place] Thyroid 60 mg p.o. q.a.m. 8. Tylenol 650 mg p.o. q.4 hours p.r.n. 9. Albuterol sulfate nebulized 2.5 mg q.4 hours as needed for shortness of breath. 10. Maalox as needed. 11. Bisacodyl 10 mg as needed. 12. Buspirone 10 mg daily. 13. Carvedilol 3.125 mg p.o. b.i.d. 14. Clonidine 0.3 mg p.o. t.i.d. 15. Levaquin 500 mg, which she completed on 06/23. 16. Lisinopril 5 mg daily. 17. Prednisone 5 mg a day. 18. Crestor 10 mg daily. 19. Sucralfate 1 gram p.o. q.i.d. a.c. and at bedtime. ALLERGIES: AMLODIPINE and MORPHINE. SOCIAL HISTORY: Currently is at [facility] for rehabilitation. She is , accompanies her. FAMILY HISTORY: Negative for clotting or bleeding disorder. No immune dysfunction. REVIEW OF SYSTEMS: A 10-point review of systems was performed and negative for all systems except as stated per HPI. PHYSICAL EXAMINATION: VITAL SIGNS: Temperature is 98.1, pulse 88, blood pressure 169/44, respiratory rate 16, sat 93% on room air. GENERAL: She is awake. She is alert. She is oriented x3. She is a chronically ill-appearing obese white female, appears to be in no acute distress. HEENT: Normocephalic, atraumatic. Pupils are equal and react to light bilaterally. Mucous membranes are moist. She has no visible lesions or thrush. NECK: Supple without lymphadenopathy, JVD, or thyromegaly. LUNGS: Clear. She has no wheezes, rales, or rhonchi. CARDIOVASCULAR: She has normal S1, S2. She has normal cardiac. She has had a 2/6 systolic ejection with right upper sternal border. ABDOMEN: Obese. It is nontender, nondistended. She has hyperactive bowel sounds present in all 4 quadrants. There is no rebound, rigidity, or guarding. EXTREMITIES: Show no cyanosis, no clubbing. She has got no edema present. She has got thready dorsalis pedis and posterior tibial pulses probably 1+. SKIN: Otherwise, warm, moist, and well perfused. She has tightening of the knuckles and distant phalanges. NEUROLOGICAL EXAM: Cranial nerves are II through XII are grossly intact. She had no focal deficits, normal speech pattern. MUSCULOSKELETAL: Shows normal joints. She has no inflammation and no palpable effusions. LABORATORY DATA: Sodium 135, potassium 2.9, chloride 93, bicarbonate 35, BUN 8 , creatinine 0.80, glucose 167 with calcium of 13.8. On discharge, her calcium was normal and her bicarbonate was in the 20s. Liver function completely within normal limits. Her CBC showed white count of 12.4 with a normal differential, hemoglobin 12.1, hematocrit 37.3, platelet count 385,000. Urinalysis showed 4-6 loose epithelial cells, 11-20 white cells , small leukocyte esterase. No bacteria. Chest x-ray showed no acute cardiopulmonary disease. She had aortic atherosclerosis present. ASSESSMENT AND PLAN: 1. Hypokalemia. Potassium was 2.9. She is getting 60 mEq in the emergency department. We will recheck in the morning. 2. Hypercalcemia. Calcium of 13.8. We get IV fluids tonight, recheck in the morning. 3. Dehydration, patient was having nausea and vomiting with decreased p.o. intake, she had some lower extremity edema and was up to 80 mg of Lasix daily. I suspect that she has got some depleted intravascular volume. She did receive IV fluids a total of 1 liter in the emergency department. We will continue all fluids on the floor tonight. 4. Hyperlipidemia. 5. Coronary artery disease, asymptomatic. 6. Hypertension, blood pressure is elevated. We will resume her home medications. 7. Anxiety/depression on Ativan and Zoloft. We will continue. 8. Diabetes mellitus, type 2 on metformin and Lantus. Patient is less nauseated and ready to eat, so we will go ahead and feed her. 9. Hyperlipidemia on atorvastatin. We will continue, also on fenofibrate. 10. Continue home medications, recheck labs in the morning. If correct in the morning, may be able to go back to rehabilitation. MTDD
[2017-07-20] MEDS: Famotidine/PF 20 mg/2ml Vial SLOW IVP SCH ×3 (03:44→21:16)
[2017-07-20 05:14] LABS: #Basophils 0.1 thou/uL (0.0-0.2); #Eosinphils 0.3 thou/uL (0.0-0.7); #Lymphocytes 3.8 thou/uL (1.20-3.40); #Monocytes 1.1 thou/uL (0.11-0.59); #Neutrophils 4.7 thou/uL (1.40-6.50); %Basophils 0.7 % (0.0-1.0); %Eosinophils 2.8 % (0.0-10.0); %Lymphocytes 38.2 % (21.0-51.0); %Monocytes 10.8 % (0.0-10.0); %Neutrophils 47.4 % (42.0-75.0); Hemoglobin 10.1 g/dL (12.0-16.0); Mean Corpuscular HGB CONC 32.8 g/dL (32.0-36.0); Mean Corpuscular Hemoglobin 30.3 pg (27.0-31.0); Mean Corpuscular Volume 92.5 fl (81.0-99.0); Mean Platelet Volume 7.2 fL (7.4-10.4); Platelet Count 328 thou/uL (130-400); RBC Distribution Width 14.1 % (11.5-14.5); Red Blood Cell (RBC) Count 3.32 mill/uL (4.20-5.40); White Blood Cell (WBC) Count 9.9 thou/uL (4.8-10.8)
[2017-07-20 05:28] LABS: ALT (SGPT) 8 U/L (8-55); AST (SGOT) 18 U/L (5-34); Albumin 3.1 g/dL (3.4-4.8); Alkaline Phosphatase 50 U/L (40-150); Anion Gap 11 mmol/L (10-20); BUN (Urea Nitrogen) 8 mg/dL (9.8-20.1); Bilirubin, Total 0.7 mg/dL (0.2-1.2); Calc. Creatinine Clearance 64 mL/min (70-130); Carbon Dioxide 29 mmol/L (23-31); Chloride 104 mmol/L (98-107); Estimated GFR-MDRD 78; Globulin 2.6 g/dL (2.4-3.5); Glucose 100 mg/dL (83-110); Magnesium 1.3 mg/dL (1.6-2.6); Potassium 3.3 mmol/L (3.5-5.1); Protein, Total 5.7 g/dL (6.0-8.3); Sodium 141 mmol/L (136-145)
[2017-07-20 05:30] LABS: Calcium 12.6 mg/dL (7.8-10.44)
[2017-07-20] MEDS ORDERED: cloNIDine 0.3 MG TAB PO SCH (09:00)
[2017-07-20] MEDS ORDERED: Potassium Chloride 20 MEQ TAB PO SCH (10:30)
[2017-07-20] MEDS ORDERED: Magnesium 2 GM/NS 0.9% 100 ML 2 GM in Premix Bag 1 BAG IVPB SCH (10:30)
[2017-07-20 11:28] LABS: Thyroid Stimulating Hormone 0.83 uIU/mL (0.35-4.94); Vitamin D, 25 Hydroxy 80.4 ng/ml (> 30.0)
[2017-07-20] MEDS: Sodium Chloride 0.9% 1,000 ML IV SCH ×2 (11:35→16:02)
[2017-07-20 12:50] LABS: #Basophils 0.1 thou/uL (0.0-0.2); #Eosinphils 0.2 thou/uL (0.0-0.7); #Lymphocytes 2.7 thou/uL (1.20-3.40); #Monocytes 0.9 thou/uL (0.11-0.59); #Neutrophils 4.6 thou/uL (1.40-6.50); %Basophils 1.3 % (0.0-1.0); %Eosinophils 2.2 % (0.0-10.0); %Lymphocytes 32.1 % (21.0-51.0); %Monocytes 10.8 % (0.0-10.0); %Neutrophils 53.6 % (42.0-75.0); Hemoglobin 10.2 g/dL (12.0-16.0); Mean Corpuscular HGB CONC 31.7 g/dL (32.0-36.0); Mean Corpuscular Hemoglobin 30.3 pg (27.0-31.0); Mean Corpuscular Volume 95.5 fl (81.0-99.0); Mean Platelet Volume 6.6 fL (7.4-10.4); Platelet Count 303 thou/uL (130-400); RBC Distribution Width 14.2 % (11.5-14.5); Red Blood Cell (RBC) Count 3.35 mill/uL (4.20-5.40); White Blood Cell (WBC) Count 8.5 thou/uL (4.8-10.8)
[2017-07-20 12:57] LABS: Prothrombin Time 13.4 SEC (12.0-14.7)
[2017-07-20 13:04] LABS: ALT (SGPT) 8 U/L (8-55); AST (SGOT) 18 U/L (5-34); Alkaline Phosphatase 51 U/L (40-150); Anion Gap 9 mmol/L (10-20); BUN (Urea Nitrogen) 7 mg/dL (9.8-20.1); Bilirubin, Total 0.7 mg/dL (0.2-1.2); Calc. Creatinine Clearance 65 mL/min (70-130); Carbon Dioxide 28 mmol/L (23-31); Chloride 104 mmol/L (98-107); Estimated GFR-MDRD 79; Globulin 2.4 g/dL (2.4-3.5); Glucose 115 mg/dL (83-110); Potassium 3.4 mmol/L (3.5-5.1); Protein, Total 5.4 g/dL (6.0-8.3); Sodium 138 mmol/L (136-145)
[2017-07-20 13:10] LABS: Calcium 12.3 mg/dL (7.8-10.44)
--- NOTE | 2017-07-20 15:03 | PDOC.PN ---
- Subjective Encounter Start Date: 07/20/17 Encounter Start Time: 11:30 Subjective: sulema alert was called on this pt today. pt was awake but was drowsy. -: no pain meds were administered to pt. She did get clonidine 2 hours prior -: pt's stroke score was 1. - Objective Resuscitation Status: Resuscitation Status FULL:Full Resuscitation Vital Signs & Weight: Vital Signs (12 hours) Temp Pulse Pulse Resp BP BP BP 07/20/17 12:20 84 146/66 H 07/20/17 11:15 98.8 F 105 H 16 205/87 H 07/20/17 10:09 197/81 H 07/20/17 09:32 104 H 193/82 H 07/20/17 08:00 98.7 F 106 H 18 07/20/17 07:07 98.7 F 106 H 18 197/81 H 07/20/17 05:06 89 197/81 H 07/20/17 04:25 88 18 198/83 H Pulse Ox 07/20/17 12:20 93 L 07/20/17 11:15 93 L 07/20/17 10:09 07/20/17 09:32 07/20/17 08:00 07/20/17 07:07 91 L 07/20/17 05:06 07/20/17 04:25 Weight Weight 136 lb 12.8 oz I&O: 07/19/17 07/20/17 07/21/17 06:59 06:59 06:59 Intake Total 1700 Output Total 200 Balance 1500 Result Diagrams: 07/20/17 12:46 07/20/17 12:46 Additional Labs: Accuchecks 07/20/17 12:39 POC Glucose 108 Phys Exam - Physical Examination HEENT: PERRLA Neck: no nodes Respiratory: no wheezing Cardiovascular: RRR, no significant murmur Gastrointestinal: soft, non-tender Musculoskeletal: no edema, pulses present Neurological: non-focal, normal sensation drowsy but easily aroused Psychiatric: normal affect Dx/Plan (1) Hyponatremia Code(s): E87.1 - HYPO-OSMOLALITY AND HYPONATREMIA Status: Acute Comment: stable continue to monitor (2) Hypercalcemia Code(s): E83.52 - HYPERCALCEMIA Status: Resolved Comment: will check vit d level, tsh and pth. (3) Hypothyroidism Code(s): E03.9 - HYPOTHYROIDISM, UNSPECIFIED Status: Chronic Qualifiers: Hypothyroidism type: acquired Qualified Code(s): E03.9 - Hypothyroidism, unspecified Comment: stable continue to monitor (4) Hypokalemia Code(s): E87.6 - HYPOKALEMIA Status: Resolved Comment: will replace (5) Hypertension Code(s): I10 - ESSENTIAL (PRIMARY) HYPERTENSION Status: Acute Comment: will continue home meds. pt most likely was drowsy from clonidine which is a adverse affect. - Plan * . Review of Systems - Review of Systems Gastrointestinal: negative: Nausea, Vomiting, Abdominal Pain, Diarrhea, Constipation, Melena, Hematochezia, Other Genitourinary: negative: Dysuria, Frequency, Incontinence, Hematuria, Retention , Other Musculoskeletal: negative: Neck Pain, Shoulder Pain, Arm Pain, Back Pain, Hand Pain, Leg Pain, Foot Pain, Other Skin: negative: Rash, Lesions, Gamal, Bruising, Other Neurological: Other (pt was drowsy but easily aroused) - Medications/Allergies Allergies/Adverse Reactions: Allergies Allergy/AdvReac Type Severity Reaction Status Date / Time amlodipine Allergy "swelled Verified 07/20/17 00:18 in feet and legs" morphine Allergy Verified 07/20/17 00:18 Medications: Current Medications Acetaminophen (Tylenol) 650 mg PO Q4H PRN PRN Reason: Headache/Fever or Pain Hydrocodone Bitart/Acetaminophen ([place] 10/325) 1 tab PO Q4H PRN PRN Reason: Severe Pain (7-10) Hydrocodone Bitart/Acetaminophen ([place] 5/325) 1 tab PO Q4H PRN PRN Reason: Moderate Pain (4-6) Buspirone HCl (Buspar) 10 mg PO DAILY [facility] Clonidine (Catapres) 0.2 mg PO BID [facility] Famotidine (Pepcid) 20 mg SLOW IVP Q12HR [facility] Last Admin: 07/20/17 11:35 Dose: 20 mg Hydralazine HCl (Apresoline) 10 mg SLOW IVP Q3H PRN PRN Reason: SBP > 180 Last Admin: 07/20/17 05:06 Dose: 10 mg Hydralazine HCl (Apresoline) 75 mg PO TID [facility] Sodium Chloride (Normal Saline 0.9%) 1,000 mls @ 100 mls/hr IV .Q10H [facility] Last Admin: 07/20/17 11:35 Dose: 1,000 mls Ondansetron HCl (Zofran Odt) 4 mg PO Q6H PRN PRN Reason: Nausea/Vomiting Ondansetron HCl (Zofran) 4 mg IVP Q6H PRN PRN Reason: Nausea/Vomiting Last Admin: 07/20/17 10:08 Dose: 4 mg Propranolol HCl (Inderal) 60 mg PO TID [facility] Rosuvastatin Calcium (Crestor) 10 mg PO HS [facility] Sodium Chloride (Flush - Normal Saline) 10 ml IVF Q12HR [facility] Last Admin: 07/20/17 10:15 Dose: 10 ml Sodium Chloride (Flush - Normal Saline) 10 ml IVF PRN PRN PRN Reason: Saline Flush Thyroid ([place] Thyroid) 60 mg PO DAILY [facility]
[2017-07-20] MEDS: Potassium Chloride 20 MEQ TAB PO SCH ×2 (15:56→17:08)
[2017-07-20] MEDS: hydrALAZINE 25 MG TAB PO SCH ×2 (15:56→21:14)
[2017-07-20] MEDS ORDERED: Hydrocortisone Sod Succ/PF 100 mg/2 ml Vial IVP SCH ×2 (17:00→17:45)
[2017-07-20] MEDS: Propranolol 60 MG TAB PO SCH ×2 (17:07→21:15)
[2017-07-20] MEDS ORDERED: Sterile Water 10 ML ONE (18:03)
[2017-07-20] MEDS: Rosuvastatin 10 MG TAB PO SCH (21:14)
[2017-07-20] MEDS: cloNIDine 0.2 MG TAB PO SCH (21:15)
[2017-07-20] MEDS: Hydrocortisone Sod Succ/PF 100 mg/2 ml Vial IVP SCH (21:16)
[2017-07-21] MEDS: Sodium Chloride 0.9% 1,000 ML IV SCH ×2 (03:13→13:38)
[2017-07-21 05:56] LABS: Anion Gap 11 mmol/L (10-20); BUN (Urea Nitrogen) 7 mg/dL (9.8-20.1); Calc. Creatinine Clearance 63 mL/min (70-130); Carbon Dioxide 22 mmol/L (23-31); Chloride 111 mmol/L (98-107); Estimated GFR-MDRD 76; Potassium 4.2 mmol/L (3.5-5.1); Sodium 140 mmol/L (136-145)
[2017-07-21 05:57] LABS: Calcium 11.6 mg/dL (7.8-10.44); Glucose 118 mg/dL (83-110)
[2017-07-21 06:12] LABS: Eosinophils 1 % (0-10); Hemoglobin 9.7 g/dL (12.0-16.0); Lymphocytes 45 % (21-51); MDiff Complete? YES; Mean Corpuscular HGB CONC 31.4 g/dL (32.0-36.0); Mean Corpuscular Hemoglobin 29.8 pg (27.0-31.0); Mean Corpuscular Volume 94.8 fl (81.0-99.0); Mean Platelet Volume 7.1 fL (7.4-10.4); Monocytes 4 % (0-10); Neutrophil 48 % (42-75); PLT Morphology Comment Appears Adequate; Platelet Count 255 thou/uL (130-400); RBC Distribution Width 14.3 % (11.5-14.5); Reactive Lymphocytes 2 % (0-10); Red Blood Cell (RBC) Count 3.25 mill/uL (4.20-5.40); White Blood Cell (WBC) Count 8.5 thou/uL (4.8-10.8)
[2017-07-21] MEDS ORDERED: predniSONE 5 MG TAB PO SCH (09:00)
[2017-07-21] MEDS: hydrALAZINE 25 MG TAB PO SCH ×3 (10:02→20:08)
[2017-07-21] MEDS: busPIRone HCl 10 MG TAB PO SCH (10:02)
[2017-07-21] MEDS: cloNIDine 0.2 MG TAB PO SCH ×2 (10:02→20:08)
[2017-07-21] MEDS: Propranolol 60 MG TAB PO SCH ×3 (10:03→20:15)
[2017-07-21] MEDS ORDERED: Lisinopril 5 MG TAB PO SCH (10:45)
[2017-07-21 11:24] LABS: Ionized Calcium 7.8 mg/dL (4.5-5.6)
[2017-07-21] MEDS: Thyroid 60 MG TAB PO SCH (11:42)
[2017-07-21] MEDS: Hydrocortisone Sod Succ/PF 100 mg/2 ml Vial IVP SCH ×3 (13:37→20:09)
[2017-07-21] MEDS: Famotidine 40 MG/4 ML VIAL IVPB SCH ×2 (13:38→20:08)
[2017-07-21] MEDS ORDERED: Sterile Water 10 ML ONE ×2 (13:48→16:19)
--- NOTE | 2017-07-21 14:38 | PDOC.PN ---
- Subjective Encounter Start Date: 07/21/17 Encounter Start Time: 10:00 Subjective: pt up in bed feels much better today but complains of being a little tired - Objective Resuscitation Status: Resuscitation Status FULL:Full Resuscitation Vital Signs & Weight: Vital Signs (12 hours) Temp Pulse Pulse Resp BP BP BP 07/21/17 14:24 75 07/21/17 11:15 98.2 F 75 20 147/64 H 07/21/17 10:02 79 07/21/17 09:22 78 145/64 H 07/21/17 07:56 98.9 F 79 18 07/21/17 07:34 98.8 F 80 16 170/81 H 07/21/17 03:13 79 18 132/62 Pulse Ox 07/21/17 14:24 07/21/17 11:15 94 L 07/21/17 10:02 07/21/17 09:22 07/21/17 07:56 07/21/17 07:34 94 L 07/21/17 03:13 93 L Weight Weight 136 lb 12.8 oz I&O: 07/20/17 07/21/17 07/22/17 06:59 06:59 06:59 Intake Total 1700 2196 Output Total 200 900 Balance 1500 1296 Result Diagrams: 07/21/17 05:27 07/21/17 05:27 Phys Exam - Physical Examination HEENT: PERRLA, moist MMs Neck: no nodes, no JVD Respiratory: no wheezing mild rales noted to bases Cardiovascular: RRR, no significant murmur Gastrointestinal: soft, non-tender Dx/Plan (1) Hyponatremia Code(s): E87.1 - HYPO-OSMOLALITY AND HYPONATREMIA Status: Acute Comment: stable continue to monitor (2) Hypercalcemia Code(s): E83.52 - HYPERCALCEMIA Status: Resolved Comment: will check vit d level, tsh and pth. (3) Hypothyroidism Code(s): E03.9 - HYPOTHYROIDISM, UNSPECIFIED Status: Chronic Qualifiers: Hypothyroidism type: acquired Qualified Code(s): E03.9 - Hypothyroidism, unspecified Comment: stable continue to monitor (4) Hypokalemia Code(s): E87.6 - HYPOKALEMIA Status: Resolved Comment: will replace (5) Hypertension Code(s): I10 - ESSENTIAL (PRIMARY) HYPERTENSION Status: Acute Comment: will continue home meds. pt most likely was drowsy from clonidine which is a adverse affect. (6) Adrenal crisis Code(s): E27.2 - ADDISONIAN CRISIS Status: Acute Comment: pt yestarday had signs of adrenal crisis ( weakness, n/v, hypercalemia) pt started on iv solucortef. pt was in rehab so was taking her medicaiton. No sign of infection only mild tenderness in her abdomen ( most likley from her recent diverticulitis ). will watch pt for one more day. spoke with pt's son and discussed that she may need to follow up with endocrine as outpatient. - Plan * . Review of Systems - Review of Systems Eyes: negative: Pain, Vision Change, Conjunctivae Inflammation, Eyelid Inflammation, Redness, Other ENT: negative: Ear Pain, Ear Discharge, Nose Pain, Nose Discharge, Nose Congestion, Mouth Pain, Mouth Swelling, Throat Pain, Throat Swelling, Other Respiratory: negative: Cough, Dry, Shortness of Breath, Hemoptysis, SOB with Excertion, Pleuritic Pain, Sputum, Wheezing Neurological: Weakness - Medications/Allergies Allergies/Adverse Reactions: Allergies Allergy/AdvReac Type Severity Reaction Status Date / Time amlodipine Allergy "swelled Verified 07/20/17 00:18 in feet and legs" morphine Allergy Verified 07/20/17 00:18 Medications: Current Medications Acetaminophen (Tylenol) 650 mg PO Q4H PRN PRN Reason: Headache/Fever or Pain Hydrocodone Bitart/Acetaminophen ([place] 10/325) 1 tab PO Q4H PRN PRN Reason: Severe Pain (7-10) Hydrocodone Bitart/Acetaminophen ([place] 5/325) 1 tab PO Q4H PRN PRN Reason: Moderate Pain (4-6) Buspirone HCl (Buspar) 10 mg PO DAILY [facility] Last Admin: 07/21/17 10:02 Dose: 10 mg Clonidine (Catapres) 0.2 mg PO BID [facility] Last Admin: 07/21/17 10:02 Dose: 0.2 mg Famotidine (Pepcid) 40 mg IVPB Q12HR [facility] Last Admin: 07/21/17 13:38 Dose: 40 ml Hydralazine HCl (Apresoline) 10 mg SLOW IVP Q3H PRN PRN Reason: SBP > 180 Last Admin: 07/20/17 05:06 Dose: 10 mg Hydralazine HCl (Apresoline) 100 mg PO TID [facility] Last Admin: 07/21/17 14:24 Dose: 100 mg Hydrocortisone Sodium Succinate (Solu-Cortef) 25 mg IVP TID [facility] Last Admin: 07/21/17 13:37 Dose: 25 mg Sodium Chloride (Normal Saline 0.9%) 1,000 mls @ 100 mls/hr IV .Q10H [facility] Last Admin: 07/21/17 13:38 Dose: Not Given Lisinopril (Zestril) 5 mg PO DAILY [facility] Ondansetron HCl (Zofran Odt) 4 mg PO Q6H PRN PRN Reason: Nausea/Vomiting Ondansetron HCl (Zofran) 4 mg IVP Q6H PRN PRN Reason: Nausea/Vomiting Last Admin: 07/20/17 10:08 Dose: 4 mg Propranolol HCl (Inderal) 60 mg PO TID [facility] Last Admin: 07/21/17 14:24 Dose: 60 mg Rosuvastatin Calcium (Crestor) 10 mg PO HS [facility] Last Admin: 07/20/17 21:14 Dose: 10 mg Sodium Chloride (Flush - Normal Saline) 10 ml IVF Q12HR [facility] Last Admin: 07/21/17 10:03 Dose: 10 ml Sodium Chloride (Flush - Normal Saline) 10 ml IVF PRN PRN PRN Reason: Saline Flush Thyroid ([place] Thyroid) 60 mg PO DAILY [facility] Last Admin: 07/21/17 11:42 Dose: 60 mg
[2017-07-21] MEDS: Rosuvastatin 10 MG TAB PO SCH (20:09)
[2017-07-21] MEDS: HYDROcodone/Acetaminophen 5/325 mg Tablet PO PRN (22:23)
[2017-07-22] MEDS: cloNIDine 0.2 MG TAB PO SCH ×2 (04:11→20:56)
[2017-07-22] MEDS: hydrALAZINE 25 MG TAB PO SCH ×3 (09:19→20:56)
[2017-07-22] MEDS: busPIRone HCl 10 MG TAB PO SCH (09:19)
[2017-07-22] MEDS: Thyroid 60 MG TAB PO SCH (09:19)
[2017-07-22] MEDS: Lisinopril 5 MG TAB PO SCH (09:19)
[2017-07-22] MEDS: Hydrocortisone Sod Succ/PF 100 mg/2 ml Vial IVP SCH (09:20)
[2017-07-22] MEDS: Famotidine 40 MG/4 ML VIAL IVPB SCH (09:20)
[2017-07-22] MEDS: Propranolol 60 MG TAB PO SCH ×3 (09:20→20:57)
[2017-07-22] MEDS ORDERED: Hydrocortisone Sod Succ/PF 100 mg/2 ml Vial IVP SCH ×3 (09:52→21:00)
--- NOTE | 2017-07-22 13:49 | PDOC.PN ---
- Subjective Encounter Start Date: 07/22/17 Encounter Start Time: 12:45 Subjective: pt up in bed complains of weakness. -: pt at the rehab was only going from bed to wheelchair transfer - Objective Vital Signs & Weight: Vital Signs (12 hours) Temp Pulse Resp BP BP Pulse Ox 07/22/17 09:19 73 07/22/17 08:00 98.5 F 73 16 07/22/17 07:18 98.5 F 73 16 167/72 H 94 L 07/22/17 05:11 129/57 L 07/22/17 04:11 194/77 H 07/22/17 03:02 98.4 F 79 18 194/77 H 92 L I&O: 07/21/17 07/22/17 07/23/17 06:59 06:59 07:59 Intake Total 1170 Output Total 650 Balance 520 Result Diagrams: 07/21/17 05:27 07/21/17 05:27 Phys Exam - Physical Examination HEENT: PERRLA Neck: no nodes, no JVD Respiratory: no wheezing, no rales Cardiovascular: RRR, no significant murmur Gastrointestinal: soft, non-tender Musculoskeletal: edema present Neurological: non-focal Dx/Plan (1) Hyponatremia Code(s): E87.1 - HYPO-OSMOLALITY AND HYPONATREMIA Status: Acute Comment: stable continue to monitor (2) Hypercalcemia Code(s): E83.52 - HYPERCALCEMIA Status: Resolved Comment: will check vit d level, tsh and pth. tsh normal, vit d normal mild elevated pth (3) Hypothyroidism Code(s): E03.9 - HYPOTHYROIDISM, UNSPECIFIED Status: Chronic Qualifiers: Hypothyroidism type: acquired Qualified Code(s): E03.9 - Hypothyroidism, unspecified Comment: stable continue to monitor (4) Hypokalemia Code(s): E87.6 - HYPOKALEMIA Status: Resolved Comment: will replace (5) Hypertension Code(s): I10 - ESSENTIAL (PRIMARY) HYPERTENSION Status: Acute Comment: will continue home meds. pt most likely was drowsy from clonidine which is a adverse affect. pt's home meds started (6) Adrenal crisis Code(s): E27.2 - ADDISONIAN CRISIS Status: Acute Comment: pt yestarday had signs of adrenal crisis ( weakness, n/v, hypercalemia) pt started on iv solucortef. pt was in rehab so was taking her medicaiton. No sign of infection only mild tenderness in her abdomen ( most likley from her recent diverticulitis ). will watch pt for one more day. spoke with pt's son and discussed that she may need to follow up with endocrine as outpatient. 07/22 will start pt on prednisone in am at 10mg. if she does well will discharge her on monday. (7) Weakness Code(s): R53.1 - WEAKNESS Status: Acute Comment: this could be due to chronic steroids use. At the rehab she was only able to transfer from bed to wheelchair. unable to wean off steroids. will continue to monitor. - Plan * . Review of Systems - Review of Systems Eyes: negative: Pain, Vision Change, Conjunctivae Inflammation, Eyelid Inflammation, Redness, Other ENT: negative: Ear Pain, Ear Discharge, Nose Pain, Nose Discharge, Nose Congestion, Mouth Pain, Mouth Swelling, Throat Pain, Throat Swelling, Other Respiratory: negative: Cough, Dry, Shortness of Breath, Hemoptysis, SOB with Excertion, Pleuritic Pain, Sputum, Wheezing Cardiovascular: negative: chest pain, palpitations, orthopnea, paroxysmal nocturnal dyspnea, edema, light headedness, other Neurological: Weakness - Medications/Allergies Allergies/Adverse Reactions: Allergies Allergy/AdvReac Type Severity Reaction Status Date / Time amlodipine Allergy "swelled Verified 07/20/17 00:18 in feet and legs" morphine Allergy Verified 07/20/17 00:18 Medications: Current Medications Acetaminophen (Tylenol) 650 mg PO Q4H PRN PRN Reason: Headache/Fever or Pain Hydrocodone Bitart/Acetaminophen ([place] 10/325) 1 tab PO Q4H PRN PRN Reason: Severe Pain (7-10) Hydrocodone Bitart/Acetaminophen ([place] 5/325) 1 tab PO Q4H PRN PRN Reason: Moderate Pain (4-6) Last Admin: 07/21/17 22:23 Dose: 1 tab Buspirone HCl (Buspar) 10 mg PO DAILY [facility] Last Admin: 07/22/17 09:19 Dose: 10 mg Clonidine (Catapres) 0.2 mg PO BID [facility] Last Admin: 07/22/17 04:11 Dose: 0.2 mg Famotidine (Pepcid) 20 mg PO BID [facility] Furosemide (Lasix) 40 mg PO 0900,1400 [facility] Hydralazine HCl (Apresoline) 10 mg SLOW IVP Q3H PRN PRN Reason: SBP > 180 Last Admin: 07/20/17 05:06 Dose: 10 mg Hydralazine HCl (Apresoline) 100 mg PO TID [facility] Last Admin: 07/22/17 09:19 Dose: 100 mg Lisinopril (Zestril) 5 mg PO DAILY [facility] Last Admin: 07/22/17 09:19 Dose: 5 mg Ondansetron HCl (Zofran Odt) 4 mg PO Q6H PRN PRN Reason: Nausea/Vomiting Ondansetron HCl (Zofran) 4 mg IVP Q6H PRN PRN Reason: Nausea/Vomiting Last Admin: 07/20/17 10:08 Dose: 4 mg Prednisone (Prednisone) 10 mg PO QAM-WM [facility] Propranolol HCl (Inderal) 60 mg PO TID [facility] Last Admin: 07/22/17 09:20 Dose: 60 mg Rosuvastatin Calcium (Crestor) 10 mg PO HS [facility] Last Admin: 07/21/17 20:09 Dose: 10 mg Sodium Chloride (Flush - Normal Saline) 10 ml IVF Q12HR [facility] Last Admin: 07/22/17 09:20 Dose: 10 ml Sodium Chloride (Flush - Normal Saline) 10 ml IVF PRN PRN PRN Reason: Saline Flush Thyroid ([place] Thyroid) 60 mg PO DAILY [facility] Last Admin: 07/22/17 09:19 Dose: 60 mg
[2017-07-22] MEDS: Furosemide 20 MG TAB PO SCH (15:13)
[2017-07-22] MEDS ORDERED: Nitroglycerin 0.4 MG TAB (25 Tab Bottle) SL PRN (19:51)
[2017-07-22] MEDS: Famotidine 20 MG TAB PO SCH (20:56)
[2017-07-22] MEDS: Rosuvastatin 10 MG TAB PO SCH (20:57)
[2017-07-22] MEDS: HYDROcodone/Acetaminophen 5/325 mg Tablet PO PRN (20:58)
[2017-07-23 05:56] LABS: Anion Gap 10 mmol/L (10-20); BUN (Urea Nitrogen) 7 mg/dL (9.8-20.1); Calc. Creatinine Clearance 61 mL/min (70-130); Calcium 10.6 mg/dL (7.8-10.44); Carbon Dioxide 28 mmol/L (23-31); Chloride 101 mmol/L (98-107); Estimated GFR-MDRD 73; Glucose 98 mg/dL (83-110); Magnesium 1.3 mg/dL (1.6-2.6); Phosphorus 3.5 mg/dL (2.3-4.7); Sodium 136 mmol/L (136-145)
[2017-07-23 06:00] LABS: Potassium 2.7 mmol/L (3.5-5.1)
[2017-07-23 06:10] LABS: Eosinophils 4 % (0-10); Hemoglobin 9.9 g/dL (12.0-16.0); Lymphocytes 48 % (21-51); MDiff Complete? YES; Mean Corpuscular HGB CONC 32.2 g/dL (32.0-36.0); Mean Corpuscular Hemoglobin 30.3 pg (27.0-31.0); Mean Corpuscular Volume 94.1 fl (81.0-99.0); Mean Platelet Volume 7.3 fL (7.4-10.4); Monocytes 8 % (0-10); Neutrophil 40 % (42-75); PLT Morphology Comment Appears Adequate; Platelet Count 244 thou/uL (130-400); RBC Distribution Width 14.2 % (11.5-14.5); RBC Morphology Normal; Red Blood Cell (RBC) Count 3.28 mill/uL (4.20-5.40)
[2017-07-23] MEDS ORDERED: Magnesium Sulfate 3 GM in Sodium Chloride 0.9% 100 ML IVPB SCH (06:30)
[2017-07-23] MEDS ORDERED: Potassium Chloride 20 MEQ TAB PO SCH ×4 (06:30→14:00)
[2017-07-23] MEDS: Magnesium Chloride 64 MG TAB PO SCH ×2 (07:18→21:41)
[2017-07-23] MEDS: busPIRone HCl 10 MG TAB PO SCH (08:21)
[2017-07-23] MEDS: Famotidine 20 MG TAB PO SCH ×2 (08:21→21:41)
[2017-07-23] MEDS: Furosemide 20 MG TAB PO SCH ×2 (08:21→14:50)
[2017-07-23] MEDS: predniSONE 5 MG TAB PO SCH (08:21)
[2017-07-23] MEDS: hydrALAZINE 25 MG TAB PO SCH ×3 (08:21→21:41)
[2017-07-23] MEDS: cloNIDine 0.2 MG TAB PO SCH ×2 (08:22→21:40)
[2017-07-23] MEDS: Thyroid 60 MG TAB PO SCH (08:22)
[2017-07-23] MEDS: Propranolol 60 MG TAB PO SCH ×3 (08:22→21:41)
[2017-07-23] MEDS: Lisinopril 5 MG TAB PO SCH (08:22)
--- NOTE | 2017-07-23 14:21 | PDOC.PN ---
- Subjective Encounter Start Date: 07/23/17 Encounter Start Time: 14:15 Subjective: f/u after adrenal crisis improved after Solucortef transitioning to -: Prednisone. Electrolyte replacement in progress and overall pt feels -: better. - Objective Vital Signs & Weight: Vital Signs (12 hours) Temp Pulse Resp BP Pulse Ox 07/23/17 10:36 139/59 L 07/23/17 08:21 68 07/23/17 08:12 98.2 F 68 18 181/74 H 95 07/23/17 07:50 98.2 F 98 18 95 07/23/17 04:40 95 07/23/17 04:00 98.8 F 66 18 157/70 H 95 Weight Weight 138 lb I&O: 07/22/17 07/23/17 07/24/17 05:59 06:59 06:59 Intake Total Output Total Balance Result Diagrams: 07/23/17 05:06 07/23/17 05:06 Additional Labs: Laboratory Tests 07/19/17 07/19/17 07/20/17 15:26 20:07 04:14 Potassium 4.0 3.3 L Calcium 13.8 H* 12.6 H* 12.6 H* 25-OH Vitamin D Total TSH 3rd Generation PTH Intact 07/20/17 07/20/17 07/20/17 10:22 10:22 12:46 Potassium 3.4 L Calcium 12.3 H* 25-OH Vitamin D Total 80.4 TSH 3rd Generation 0.8300 PTH Intact 5.1 L 07/21/17 05:27 Potassium 4.2 Calcium 11.6 H 25-OH Vitamin D Total TSH 3rd Generation PTH Intact EKG Reviewed by me: Yes (Tele - SR) Phys Exam - Physical Examination Constitutional: NAD HEENT: PERRLA, oral pharynx no lesions Neck: no JVD, supple Respiratory: no wheezing, clear to auscultation bilateral Cardiovascular: RRR Gastrointestinal: soft, non-tender, no distention, positive bowel sounds Musculoskeletal: no edema, pulses present Neurological: normal sensation, moves all 4 limbs Psychiatric: A&O x 3 Skin: normal turgor, cap refill <2 seconds Dx/Plan (1) Adrenal crisis Code(s): E27.2 - ADDISONIAN CRISIS Status: Acute Comment: Stable overall, continue Prednisone 10mg daily, resolved (2) Hypothyroidism Code(s): E03.9 - HYPOTHYROIDISM, UNSPECIFIED Status: Chronic Qualifiers: Hypothyroidism type: acquired Qualified Code(s): E03.9 - Hypothyroidism, unspecified Comment: stable continue to monitor (3) Sjogren's syndrome Code(s): M35.00 - SICCA SYNDROME, UNSPECIFIED Status: Chronic Qualifiers: Sjogren's organ involvement: unspecified organ involvement Qualified Code(s ): M35.00 - Sicca syndrome, unspecified Comment: Continue Prednisone 10mg po daily (4) Hypercalcemia Code(s): E83.52 - HYPERCALCEMIA Status: Resolved Comment: tsh normal, vit d normal mild elevated pth, resolving (5) Hypokalemia Code(s): E87.6 - HYPOKALEMIA Status: Resolved Comment: KCL 40meq TID, repeat in am (6) Hypomagnesemia Code(s): E83.42 - HYPOMAGNESEMIA Status: Resolved Comment: Continue Mg++ 128mg BID (7) Hypophosphatemia Code(s): E83.39 - OTHER DISORDERS OF PHOSPHORUS METABOLISM Status: Resolved - Plan 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
[2017-07-23] MEDS: HYDROcodone/Acetaminophen 5/325 mg Tablet PO PRN (21:42)
[2017-07-23] MEDS: Rosuvastatin 10 MG TAB PO SCH (21:42)
[2017-07-24 06:05] LABS: Anion Gap 12 mmol/L (10-20); BUN (Urea Nitrogen) 8 mg/dL (9.8-20.1); Calc. Creatinine Clearance 54 mL/min (70-130); Calcium 10.2 mg/dL (7.8-10.44); Carbon Dioxide 28 mmol/L (23-31); Chloride 97 mmol/L (98-107); Estimated GFR-MDRD 63; Glucose 98 mg/dL (83-110); Magnesium 1.5 mg/dL (1.6-2.6); Potassium 3.3 mmol/L (3.5-5.1); Sodium 134 mmol/L (136-145)
[2017-07-24] MEDS ORDERED: Potassium Chloride 20 MEQ TAB PO SCH (08:00)
[2017-07-24] MEDS: cloNIDine 0.2 MG TAB PO SCH (08:49)
[2017-07-24] MEDS: predniSONE 5 MG TAB PO SCH (08:49)
[2017-07-24] MEDS: Furosemide 20 MG TAB PO SCH ×2 (08:50→14:31)
[2017-07-24] MEDS: Famotidine 20 MG TAB PO SCH (08:50)
[2017-07-24] MEDS: busPIRone HCl 10 MG TAB PO SCH (08:50)
[2017-07-24] MEDS: Propranolol 60 MG TAB PO SCH ×2 (08:50→14:33)
[2017-07-24] MEDS: Lisinopril 5 MG TAB PO SCH (08:50)
[2017-07-24] MEDS: Magnesium Chloride 64 MG TAB PO SCH (08:50)
[2017-07-24] MEDS: hydrALAZINE 25 MG TAB PO SCH ×2 (08:50→14:32)
--- NOTE | 2017-07-24 10:46 | DIS ---
TRANSFER OF CARE NOTE PRIMARY CARE PROVIDER: Dr. Katie Tim DISCHARGE DISPOSITION: [facility]. FINAL DIAGNOSES: 1. Addisonian crisis. 2. Hypercalcemia. 3. SICCA syndrome. 4. Hypokalemia. 5. Hypomagnesemia. 6. Coronary artery disease. 7. Hypertension. 8. Dyslipidemia. 9. Chronic atrial fibrillation. DISCHARGE MEDICATIONS: The only change from previous is she is on prednisone 10 mg a day instead of 7.5. Other medicines Ventolin 2.5 mg nebulizer q.4h. p.r.n., aspirin 81 mg a day, Coreg 3.125 mg twi ce a day, clonidine 0.3 mg t.i.d., folic acid 20 mg a day, Lasix 40 mg twice a day, [place] 5/325 one e very 6 hours as needed for pain, lisinopril 5 mg a day, loperamide 2 mg q.i.d., mesalamine 800 mg t.i .d., K-Dur 20 mg b.i.d., Inderal 60 mg p.o. t.i.d., Crestor 10 mg a day, Florastor 250 mg a day, Armo ur Thyroid 60 mg a day, 10 mg a day, hydralazine 100 mg 3 times a day. ALLERGIES: AMLODIPINE and MORPHINE. PENDING AT THE TIME OF DISCHARGE: Nothing. CODE STATUS: Full. HOSPITAL COURSE: The patient in [facility] was transferred to [facility] Emergency Department wit h nausea, vomiting, weakness. She was brought to the emergency room, she was given normal saline, IV potassium. Diagnosis of adrenal crisis was made. She was given IV Solu-Medrol, prednisone increase d to 10 mg a day. The patient currently feels well and wishes to go back. PERTINENT LABORATORY: Initial calcium 12.3, now 10.2, potassium 3.4, dropped to 2.7, now 3.3. She is being discharged back to [facility] for continuing rehab. CONSULTATIONS: None. PROCEDURES: None.
[2017-07-24 11:47] VITALS: TEMP 98.3
[2017-07-24] MEDS: Thyroid 60 MG TAB PO SCH (12:23)
[2017-07-24 14:33] VITALS: BP 141/63
--- NOTE | 2017-07-29 14:23 | EKG ---
Test Reason : N/V Blood Pressure : / mmHG Vent. Rate : 086 BPM Atrial Rate : 086 BPM P-R Int : 174 ms QRS Dur : 100 ms QT Int : 394 ms P-R-T Axes : 088 012 036 degrees QTc Int : 471 ms Normal sinus rhythm Nonspecific ST and T wave abnormality Abnormal ECG Confirmed by EMMA SHARPE M.D. ([id number]), editor magazine AAKASH SHARP ([id number]) on 07/29/2017 2:21:47 PM Referred By: Confirmed By:EMMA SHARPE M.D.
== END 2017-07-24 15:14 | DRG 645 ==
LOC: ERS 14:45 → 2SW 17:39 → OBSVTOIN 07-21 15:54 → 2NO 07-22 11:13
PROVIDERS: ADMIT Internal Medicine Infectious Disease; ATTEND Internal Medicine Infectious Disease
DX: E27.2 Addisonian crisis (principal); M35.00 Sjogren syndrome, unspecified; E83.52 Hypercalcemia; E83.42 Hypomagnesemia; E83.39 Other disorders of phosphorus metabolism; E86.0 Dehydration; I48.2 Chronic atrial fibrillation; E87.6 Hypokalemia; E03.9 Hypothyroidism, unspecified; E78.5 Hyperlipidemia, unspecified; F41.9 Anxiety disorder, unspecified; I10 Essential (primary) hypertension; F32.9 Major depressive disorder, single episode, unspecified
CPT/HCPCS: 36415; 36416; 71045; 80048; 80053; 81003; 81015; 82306; 82330; 83735; 83970; 84100; 84443; 85007; 85025; 85027; 85610; 93005; 96361; 96365; 96366; 96375; A4216; G8978-GP-CM; G8979-GP-CJ; G8987-GO-CJ; G8988-GO-CI; J0360; J1720; J2405; J3475; J7050; S0028

== ENCOUNTER 2017-10-19 18:02 | Inpatient (IN) | payer MEDICARE, BC ==
[2017-10-19 18:36] LABS: #Basophils 0.2 thou/uL (0.0-0.2); #Eosinphils 0.1 thou/uL (0.0-0.7); #Lymphocytes 3.5 thou/uL (1.20-3.40); #Monocytes 1.3 thou/uL (0.11-0.59); #Neutrophils 10.7 thou/uL (1.40-6.50); %Basophils 1.3 % (0.0-1.0); %Eosinophils 0.8 % (0.0-10.0); %Lymphocytes 22.3 % (21.0-51.0); %Monocytes 8.2 % (0.0-10.0); %Neutrophils 67.5 % (42.0-75.0); Hemoglobin 12.1 g/dL (12.0-16.0); Mean Corpuscular HGB CONC 33.8 g/dL (32.0-36.0); Mean Corpuscular Hemoglobin 29.3 pg (27.0-31.0); Mean Corpuscular Volume 86.7 fl (81.0-99.0); Mean Platelet Volume 6.6 fL (7.4-10.4); Platelet Count 336 thou/uL (130-400); RBC Distribution Width 13.5 % (11.5-14.5); Red Blood Cell (RBC) Count 4.11 mill/uL (4.20-5.40); White Blood Cell (WBC) Count 15.8 thou/uL (4.8-10.8)
[2017-10-19 18:55] LABS: ALT (SGPT) 22 U/L (8-55); AST (SGOT) 19 U/L (5-34); Albumin 3.9 g/dL (3.4-4.8); Alkaline Phosphatase 65 U/L (40-150); Anion Gap 15 mmol/L (10-20); BUN (Urea Nitrogen) 19 mg/dL (9.8-20.1); Bilirubin, Total 0.4 mg/dL (0.2-1.2); CK (CPK) 32 U/L (29-168); Calc. Creatinine Clearance 0 mL/min (70-130); Calcium 9.3 mg/dL (7.8-10.44); Carbon Dioxide 24 mmol/L (23-31); Chloride 98 mmol/L (98-107); Estimated GFR-MDRD 78; Globulin 2.6 g/dL (2.4-3.5); Glucose 148 mg/dL (83-110); Potassium 4.6 mmol/L (3.5-5.1); Protein, Total 6.5 g/dL (6.0-8.3); Sodium 132 mmol/L (136-145)
[2017-10-19 18:59] LABS: CKMB 2.1 ng/mL (0-6.6); Troponin I Less than 0.010 ng/mL (< 0.028)
--- NOTE | 2017-10-19 19:50 | RAD ---
ONE VIEW CHEST: 10/19/17 COMPARISON: 07/19/17 HISTORY: Dyspnea. FINDINGS: Atherosclerosis of the aorta. Enlarged cardiac silhouette. Pulmonary vessels and hilum are normal. Co stophrenic angles are clear. Chronic changes, without consolidation or mass. No pneumothorax. Previou s vertebroplasty changes noted. Stable metallic density projecting over the left heart border. IMPRESSION: No acute cardiopulmonary process. Atherosclerosis of the aorta. POS: [facility]
[2017-10-19] MEDS ORDERED: Piperacillin/Tazobactam 3.375 GM VIAL ONE (19:58)
[2017-10-19] MEDS ORDERED: metroNIDAZOLE 500 MG in Premix Bag 1 BAG IVPB SCH (20:15)
[2017-10-19] MEDS ORDERED: Piperacillin/Tazobactam 3.375 GM in Sodium Chloride 0.9% 100 ML IVPB SCH (20:15)
--- NOTE | 2017-10-19 20:56 | CT ---
ABDOMEN CT WITH CONTRAST PELVIC CT WITH CONTRAST 10/19/17 HISTORY: Dyspnea since last night. Past medical history of diverticulitis. Left sided pain. Abdominal pain. COMPARISON: 07/05/17. TECHNIQUE: An abdomen and pelvic CT are performed with IV contrast. Enteric contrast was not administered. Coron al reformatted images are submitted for interpretation. FINDINGS: There is a small amount of pericardial fluid. Heart size is upper normal. Visualized aorta demonstrat es atherosclerosis. No periaortic fat stranding. The visualized lung bases demonstrate atelectatic change. Surgically absent gallbladder. Intra and extrahepatic portal vein is patent. Liver, spleen, pancreas, and adrenal glands have appropriate enhancement. No gastrohepatic, retrocrur al or periportal lymphadenopathy. There is symmetric enhancement of the kidneys. Bilaterally, no obst ructive uropathy. Limited evaluation of the alimentary canal due to lack of oral contrast. Ingested material, likely re presenting medication is noted in the stomach. Multiple normal caliber small bowel loops. There is fe calization of multiple small bowel loops suggesting ileus or partial obstructive process. Ileocecal j unction is normal. Appendix is difficult to appreciated. No inflammation at the cecal apex. There is mild distention and copious fecal material in the cecum, ascending colon, and proximal transverse col on. The mid to distal transverse colon as well as the left hemicolon are not distended. There is evid ence of diverticulosis scattered throughout the colon, greatest in the left hemicolon. There is peric olonic fat stranding involving the mid descending colon. Small pockets of extraluminal air are identi fied. There is fluid tracking along the left pericolic gutter. There is no evidence of abscess. There is no mesenteric mass or lymphadenopathy. There is evidence of pneumoperitoneum. PELVIC CT: Urinary bladder is unremarkable. No pelvic mass, lymphadenopathy, or free fluid. Small amount of free air is noted. Surgically absent uterus. Previous vertebroplasty change and chronic compression fract ures of the spine are noted. IMPRESSION: Diverticulitis involving the left hemicolon. There is pericolonic fat stranding and fluid in the left pericolic gutter. Small pockets of extraluminal air are noted in the region of the colon. Additional pneumoperitoneum is identified in the abdomen. No evidence of abscess. Results of the study akbar soto with Dr. Vargas, 10/19/17 at 7:37 p.m. Code CR POS: [facility]
[2017-10-19] MEDS ORDERED: Fentanyl 100 MCG/2 ML VIAL ONE (21:06)
[2017-10-19] MEDS ORDERED: Sodium Chloride 0.9% 1,000 ML IV SCH (21:46)
[2017-10-19] MEDS ORDERED: Ondansetron ODT 4 MG TAB SL PRN (21:46)
[2017-10-19] MEDS ORDERED: Acetaminophen 325 MG TAB PO PRN (21:46)
[2017-10-19] MEDS ORDERED: Ondansetron HCl/PF 4 MG/2 ML Vial IVP PRN (21:46)
[2017-10-19] MEDS ORDERED: cloNIDine 0.3 MG TAB PO SCH (23:45)
[2017-10-20] MEDS ORDERED: cloNIDine 0.1 MG TAB PO PRN (00:45)
[2017-10-20] MEDS ORDERED: Fentanyl 100 MCG/2 ML VIAL SLOW IVP PRN (01:43)
[2017-10-20] MEDS: HYDROcodone/Acetaminophen 5/325 mg Tablet PO PRN ×2 (02:15→09:05)
[2017-10-20] MEDS: Piperacillin/Tazobactam 3.375 GM in Sodium Chloride 0.9% 100 ML IVPB SCH ×4 (02:30→20:24)
[2017-10-20] MEDS ORDERED: Acetaminophen 650 MG Suppository PR PRN (03:12)
[2017-10-20] MEDS ORDERED: Mag-Al 1200 mg/1200 mg/30 ML UDCUP PO PRN (03:12)
[2017-10-20] MEDS ORDERED: Acetaminophen 325 MG TAB PO PRN (03:12)
[2017-10-20] MEDS ORDERED: Nitroglycerin 0.4 MG TAB (25 Tab Bottle) PO PRN (03:12)
[2017-10-20] MEDS ORDERED: Sodium Chloride 0.9% 1,000 ML IV SCH (03:15)
--- NOTE | 2017-10-20 04:24 | HP ---
DATE OF ADMISSION: 10/19/2017 The patient was seen and examined on 10/19/2017. CHIEF COMPLAINT: Abdominal discomfort. HISTORY OF PRESENT ILLNESS: The patient is a 76-year-old female with diverticulosis, presented to [facility] emergency room with abdominal discomfort along with generalized weakness since last night. The abd ominal pain was in the left lower quadrant, moderate in intensity without any radiation. She had jesus quent bowel movements; however, denies any diarrhea. No fever, chills, nausea, vomiting or jaundice reported. She denies any chest pain, palpitations or diaphoresis. In the emergency room, her workup was consistent with acute diverticulitis with small pockets of extr aluminal air in the region of the colon. There was no evidence of abscess. She received Zosyn, Flag yl with fentanyl in the emergency room. The case was discussed with General Surgery by the ER physic graeme. PAST MEDICAL HISTORY: 1. Diverticulosis with several episodes of diverticulitis in the past. 2. Atrial fibrillation, status post Watchman procedure. 3. Chronic obstructive pulmonary disease. 4. Chronic diastolic heart failure. 5. Hypertension. 6. Hypothyroidism. 7. Sjogren's syndrome, on chronic steroids. The patient currently takes 15 mg prednisone on a daily basis. 8. History of Washita's crisis. 9. Chronic anemia. 10. Migraines. 11. Gastroesophageal reflux disease. PAST SURGICAL HISTORY: 1. Thyroidectomy in 1965. 2. Hysterectomy with oophorectomy. 3. Appendectomy. 4. Cataract surgery. 5. Cholecystectomy. 6. Ablation for atrial fibrillation. 7. Watchman procedure. 8. Back surgeries as well as several orthopedic surgeries. 9. EGD and colonoscopy. ALLERGIES: The patient is allergic to AMLODIPINE, MORPHINE, MESALAMINE, and GABAPENTIN. CURRENT HOME MEDICATIONS: The patient is unable to recall all of her home medications. Family to ge t accurate list of medicine in the morning. FAMILY HISTORY: Father with lung cancer, mother with diabetes, hypertension, and heart disease. SOCIAL HISTORY: The patient currently lives at home. She denies any current use of smoking, alcohol or drug use. She currently has home healthcare. REVIEW OF SYSTEMS: The following complete review of systems was negative, unless otherwise mentioned in the HPI or below: Constitutional: Weight loss or gain, ability to conduct usual activities. Sk in: Rash, itching. Eyes: Double vision, pain. ENT/Mouth: Nose bleeding, neck stiffness, pain, ten derness. Cardiovascular: Palpitations, dyspnea on exertion, orthopnea. Respiratory: Shortness of breath, wheezing, cough, hemoptysis, fever or night sweats. Gastrointestinal: Poor appetite, abdomi nal pain, heartburn, nausea, vomiting, constipation, or diarrhea. Genitourinary: Urgency, frequency , dysuria, nocturia. Musculoskeletal: Pain, swelling. Neurologic/Psychiatric: Anxiety, depression . Allergy/Immunologic: Skin rash, bleeding tendency. PHYSICAL EXAMINATION: VITAL SIGNS: In the emergency room showed temperature 98.2, respiration of 16, pulse rate of 61, blo od pressure of 199/83 with O2 saturation 96% on room air. GENERAL: A 76-year-old female in mild distress due to abdominal discomfort. HEENT: Head: Atraumatic, normocephalic. Sclerae are anicteric. Moist mucous membranes. No oral l esion. NECK: Supple, no JVD appreciated. No carotid bruit. LUNGS: Clear to auscultation bilaterally, no wheezing, rales, or rhonchi. HEART: S1, S2 present. Regular rate and rhythm, no rubs or gallops appreciated. ABDOMEN: Soft. There is moderate tenderness in the left lower quadrant. No rebound, guarding, no c ostovertebral angle tenderness. EXTREMITIES: No calf tenderness. There was trace edema. SKIN: Warm and dry. LYMPH NODES: No palpable lymph nodes in the neck. NEUROLOGIC: Grossly nonfocal, moves all four extremities. PSYCHIATRIC: Alert, awake, oriented x3. LABORATORY AND X-RAY FINDINGS: CBC showed WBC 15.8 with hemoglobin 12.1, hematocrit 35.6, and platel et 336. Chemistries showed sodium 132, potassium 4.6, chloride 98, bicarbonate 24, BUN 19, creatinin e 0.73, glucose 148. BNP 544. Troponin was negative. CT abdomen by my review as discussed above. Chest x-ray by my review was negative for infiltrate. EKG by my review showed sinus rhythm with left ventricular hypertrophy. IMPRESSION: 1. Acute diverticulitis with small perforation. 2. Sjogren's syndrome, on chronic steroids with history of addisonian crisis in the past. Please no te that patient takes 15 mg prednisone on a daily basis. 3. Chronic obstructive pulmonary disease. 4. Hypothyroidism. 5. Hypertensive urgency. 6. Chronic diastolic heart failure, appears to be compensated. 7. Dyslipidemia. 8. Anxiety. 9. Degenerative joint disease. 10. Chronic anemia. 11. Gastroesophageal reflux disease. 12. Physical deconditioning. 13. Paroxysmal atrial fibrillation, status post Watchman procedure. 14. Mild hyponatremia. PLAN: The patient will be monitored on the telemetry unit. General Surgery and GI will be consulted . We will continue Zosyn with Flagyl. The patient will be kept n.p.o. We will resume home medicati ons. We will treat hypertensive urgency with her home medications in addition to p.r.n. medications. All home medications will be resumed once confirmed. We will also resume steroids. Nebulizer robbin tment as needed. Plan of care was discussed with the patient in detail, she stated understanding.
[2017-10-20 04:34] LABS: #Eosinphils 0.5 thou/uL (0.0-0.7); #Lymphocytes 3.4 thou/uL (1.20-3.40); #Monocytes 0.8 thou/uL (0.11-0.59); %Basophils 0.1 % (0.0-1.0); %Eosinophils 3.8 % (0.0-10.0); %Lymphocytes 24.9 % (21.0-51.0); %Monocytes 5.8 % (0.0-10.0); %Neutrophils 65.4 % (42.0-75.0); Hemoglobin 10.6 g/dL (12.0-16.0); Mean Corpuscular HGB CONC 33.3 g/dL (32.0-36.0); Mean Corpuscular Hemoglobin 28.7 pg (27.0-31.0); Mean Corpuscular Volume 86.3 fl (81.0-99.0); Mean Platelet Volume 6.4 fL (7.4-10.4); Platelet Count 280 thou/uL (130-400); RBC Distribution Width 13.4 % (11.5-14.5); White Blood Cell (WBC) Count 13.8 thou/uL (4.8-10.8)
[2017-10-20 04:49] LABS: Lactic Acid 2.1 mmol/L (0.5-2.2)
[2017-10-20 05:00] LABS: ALT (SGPT) 17 U/L (8-55); AST (SGOT) 15 U/L (5-34); Albumin 3.2 g/dL (3.4-4.8); Alkaline Phosphatase 55 U/L (40-150); Anion Gap 13 mmol/L (10-20); BUN (Urea Nitrogen) 14 mg/dL (9.8-20.1); Bilirubin, Total 0.6 mg/dL (0.2-1.2); Calc. Creatinine Clearance 69 mL/min (70-130); Calcium 8.7 mg/dL (7.8-10.44); Carbon Dioxide 22 mmol/L (23-31); Chloride 102 mmol/L (98-107); Estimated GFR-MDRD 83; Globulin 2.3 g/dL (2.4-3.5); Glucose 90 mg/dL (83-110); Magnesium 1.9 mg/dL (1.6-2.6); Protein, Total 5.5 g/dL (6.0-8.3); Sodium 133 mmol/L (136-145)
[2017-10-20] MEDS ORDERED: metroNIDAZOLE 500 MG in Premix Bag 1 BAG IVPB SCH (05:00)
[2017-10-20] MEDS: Propranolol 60 MG TAB PO SCH ×3 (05:16→21:22)
[2017-10-20] MEDS ORDERED: predniSONE 5 MG TAB PO SCH (08:00)
[2017-10-20] MEDS: Saccharomyces boulardii 250 MG CAP PO SCH (09:04)
[2017-10-20] MEDS: Lisinopril 5 MG TAB PO SCH (09:05)
[2017-10-20] MEDS: Famotidine/PF 20 mg/2ml Vial SLOW IVP SCH ×2 (09:07→20:28)
--- NOTE | 2017-10-20 10:35 | PDOC.PN ---
- Subjective Encounter Start Date: 10/20/17 Encounter Start Time: 07:00 Subjective: has left quadrant pain -: no nausea -: no chest pain/sob/palp/headache - Objective Resuscitation Status: Resuscitation Status FULL:Full Resuscitation MAR Reviewed: Yes Vital Signs & Weight: Vital Signs (12 hours) Temp Pulse Resp BP BP Pulse Ox 10/20/17 09:05 63 10/20/17 07:58 98.4 F 63 18 212/88 H 94 L 10/20/17 04:00 98.8 F 61 15 210/84 H 94 L 10/20/17 00:30 219/85 H 10/19/17 23:25 98.0 F 59 L 18 219/86 H 95 I&O: 10/19/17 10/20/17 10/21/17 06:59 06:59 06:59 Intake Total 250 Balance 250 Result Diagrams: 10/20/17 03:52 10/20/17 03:52 Phys Exam - Physical Examination HEENT: PERRLA dry mucosa Neck: no JVD, supple Respiratory: no wheezing, no rales Cardiovascular: RRR, no significant murmur Gastrointestinal: soft tenderness in both left quadrants Musculoskeletal: no edema, pulses present Neurological: non-focal, moves all 4 limbs Psychiatric: A&O x 3 Dx/Plan (1) Acute diverticulitis of intestine Code(s): K57.92 - DVTRCLI OF INTEST, PART UNSP, W/O PERF OR ABSCESS W/O BLEED Status: Chronic Comment: recurrent, complicated, with microabscess/ perforation. (2) Sepsis Code(s): A41.9 - SEPSIS, UNSPECIFIED ORGANISM Status: Acute Qualifiers: Sepsis type: sepsis due to unspecified organism Qualified Code(s): A41.9 - Sepsis, unspecified organism (3) Chronic anemia Code(s): D64.9 - ANEMIA, UNSPECIFIED Status: Chronic (4) H/O CHF Code(s): Z86.79 - PERSONAL HISTORY OF OTHER DISEASES OF THE CIRCULATORY SYSTEM Status: Chronic Comment: with diastolic dysfunction (5) Hypertension Code(s): I10 - ESSENTIAL (PRIMARY) HYPERTENSION Status: Chronic Comment: uncontrolled (6) Chronic atrial fibrillation Code(s): I48.2 - CHRONIC ATRIAL FIBRILLATION Status: Chronic Comment: h/o Watchman device (7) Hyperlipidemia Code(s): E78.5 - HYPERLIPIDEMIA, UNSPECIFIED Status: Chronic Qualifiers: Hyperlipidemia type: unspecified Qualified Code(s): E78.5 - Hyperlipidemia , unspecified (8) Hypothyroidism Code(s): E03.9 - HYPOTHYROIDISM, UNSPECIFIED Status: Chronic Qualifiers: Hypothyroidism type: acquired Qualified Code(s): E03.9 - Hypothyroidism, unspecified Comment: stable continue to monitor (9) Sjogren's syndrome Code(s): M35.00 - SICCA SYNDROME, UNSPECIFIED Status: Chronic Qualifiers: Sjogren's organ involvement: unspecified organ involvement Qualified Code(s ): M35.00 - Sicca syndrome, unspecified - Plan on zosyn, gentle iv hydration -: pt does not prefer surgery, is worried about wound healing with steroids -: continue iv steroids, propranolol -: this is her 3rd episode of severe diverticulitis -: await surgical opinion. Discussed code status: wants to be DNR, son is POA * . Review of Systems - Medications/Allergies Allergies/Adverse Reactions: Allergies Allergy/AdvReac Type Severity Reaction Status Date / Time amlodipine Allergy "swelled Verified 07/20/17 00:18 in feet and legs" mesalamine Allergy Unverified 10/19/17 20:06 morphine Allergy Verified 07/20/17 00:18 Medications: Current Medications Acetaminophen (Tylenol) 650 mg PO Q4H PRN PRN Reason: Headache/Fever or Pain Acetaminophen (Tylenol) 650 mg ME Q4H PRN PRN Reason: Headache/Fever or Pain Hydrocodone Bitart/Acetaminophen ([place] 5/325) 1 tab PO Q4H PRN PRN Reason: Moderate Pain (4-6) Stop: 10/22/17 01:46 Last Admin: 10/20/17 09:05 Dose: 1 tab Al Hydroxide/Mg Hydroxide (Maalox) 30 ml PO Q6H PRN PRN Reason: Heartburn or Indigestion Albuterol/Ipratropium (Duoneb) 3 ml NEB Q4H PRN PRN Reason: SOB &/or Wheezing Calcium Carbonate (Tums) 1,000 mg PO Q4H PRN PRN Reason: Heartburn or Indigestion Clonidine (Catapres) 0.1 mg PO Q4H PRN PRN Reason: Systolic BP > 180 Famotidine (Pepcid) 20 mg SLOW IVP Q12HR [facility] Last Admin: 10/20/17 09:07 Dose: 20 mg Fentanyl (Sublimaze) 25 mcg SLOW IVP Q4H PRN PRN Reason: Severe Pain (7-10) Stop: 10/21/17 01:44 Hydralazine HCl (Apresoline) 10 mg SLOW IVP Q4H PRN PRN Reason: SBP Greater Than 180 Piperacillin Sod/Tazobactam (Sod 3.375 gm/ Sodium Chloride) 100 mls @ 200 mls/ hr IVPB 0200,0800,1400,2000 [facility] Stop: 10/24/17 09:00 Last Admin: 10/20/17 09:07 Dose: 100 mls Sodium Chloride (Normal Saline 0.9%) 1,000 mls @ 50 mls/hr IV .Q20H [facility] Lisinopril (Zestril) 5 mg PO DAILY [facility] Last Admin: 10/20/17 09:05 Dose: 5 mg Lorazepam (Ativan) 0.5 mg SLOW IVP Q6H PRN PRN Reason: Anxiety/Agitation Nitroglycerin (Nitrostat) 0.4 mg PO Q5MIN PRN PRN Reason: Chest Pain Nitroglycerin (Nitro-Bid 2% Ointment) 0.5 inch TOP Q8HR [facility] Ondansetron HCl (Zofran Odt) 4 mg PO Q6H PRN PRN Reason: Nausea/Vomiting Ondansetron HCl (Zofran) 4 mg IVP Q6H PRN PRN Reason: Nausea/Vomiting Prednisone (Prednisone) 15 mg PO QAM-WM [facility] Last Admin: 10/20/17 09:04 Dose: 15 mg Propranolol HCl (Inderal) 60 mg PO Q8HR [facility] Last Admin: 10/20/17 05:16 Dose: 60 mg Saccharomyces Boulardii (Florastor) 250 mg PO DAILY [facility] Last Admin: 10/20/17 09:04 Dose: 250 mg
[2017-10-20] MEDS ORDERED: Albuterol Sulfate 2.5 mg/3 ml Neb NEB PRN (10:40)
[2017-10-20] MEDS: Ondansetron ODT 4 MG TAB PO PRN (12:18)
[2017-10-20] MEDS ORDERED: Lorazepam 1 MG TAB PO SCH (13:15)
[2017-10-20] MEDS: hydrALAZINE 25 MG TAB PO SCH ×2 (14:15→20:29)
[2017-10-20] MEDS: cloNIDine 0.3 MG TAB PO SCH ×2 (14:16→20:29)
[2017-10-20] MEDS: Nitroglycerin 2% Ointment 1 INCH/1 GM Packet TOP SCH ×2 (14:22→21:21)
[2017-10-20] MEDS: Sodium Chloride 0.9% 1,000 ML IV SCH (14:23)
--- NOTE | 2017-10-20 22:11 | CON ---
DATE OF CONSULTATION: 10/20/2017 CONSULTING PHYSICIAN: Dr. Browne. REASON FOR CONSULTATION: Diverticulitis with microperforation. HISTORY OF PRESENT ILLNESS: Patient is a 76-year-old white female well known to myself from prior yeh rgery. In 2015, I performed laparoscopic cholecystectomy. She has had multiple episodes of divertic ulitis with multiple hospitalizations. She underwent a colonoscopy apparently for diverticulitis wit h history of microperforation back in 01/2017. She was admitted again with diverticulitis 04/2017. She has had a couple of other admissions related to adrenal issues and adrenal crisis. She was admitted to the hospital yesterday with complaint of severe abdominal pain. CT scan obtained revealed evidence of microperforation of colon with diffuse spots of extraluminal air. It was sort of difficult to tell exactly where the perforation may have been. There was felt to be some pericolo nellie fat stranding in the left pericolic gutter and around the descending colon. There is clearly vielka rly dense diverticular disease within the sigmoid colon. Patient was admitted by the hospitalist nicole polanco and I am consulted for further recommendations. Her CT scan demonstrated a large stool filled cecum and right colon. Patient tells me that she has b een on MiraLax and felt that she had been very regular in terms of her bowel function. At the time o f the colonoscopy with Dr. Tello performed in January, there was apparently no evidence of mass or obstructive process or stricture. PAST MEDICAL HISTORY: 1. Diverticulosis with several episodes of diverticulitis. She has apparently had microperforation before. 2. Sjogren syndrome, for which she has been on steroids for a number of years. 3. Atrial fibrillation. 4. Chronic diastolic heart failure. 5. Hypertension. 6. Hypothyroidism. 7. History of Miguel Angel's crisis. 8. Gastroesophageal reflux disease. PAST SURGICAL HISTORY: 1. Thyroidectomy 1965 2. Hysterectomy. 3. Appendectomy. 4. Cataract surgery. 5. Cholecystectomy. 6. Ablation procedure for atrial fibrillation. 7. Watchman procedure 8. Back surgery with kyphoplasty. 9. Upper and lower endoscopy in 01/[address] Tello. ALLERGIES: AMLODIPINE, MORPHINE, MESALAMINE, and GABAPENTIN. CURRENT MEDICATIONS: Include prednisone 15 mg daily, Inderal 60 mg, lisinopril, hydralazine, [place] thyroid, Lasix 40 mg, potassium chloride, Crestor. PERSONAL/SOCIAL HISTORY: She is . She has one son who is present at bedside as well as one of her friends who drives her to place this. She denies tobacco or alcohol use. REVIEW OF SYSTEMS: Otherwise, unremarkable. FAMILY HISTORY: Noncontributory. PHYSICAL EXAMINATION: VITAL SIGNS: She is afebrile with a current temperature is 98.8. She has been afebrile during this admission. Pulse is 63-70, but it is noted that she is on Inderal. Blood pressure is very high 227/ 92. GENERAL: She is well-developed, well-nourished, pleasant white female resting in bed in no acute dis tress. She is alert and oriented x3. As mentioned, her son is present at bedside. HEENT: Unremarkable. NECK: Supple without mass or tenderness. LUNGS: Clear to auscultation. CARDIAC: Regular rate and rhythm without murmur. ABDOMEN: She has a soft, nontender right abdomen, but she has significant tenderness to palpation felicia th the left upper and left lower quadrants. Bowel sounds are essentially normal throughout. EXTREMITIES: Unremarkable. LABORATORY DATA AND X-RAY FINDINGS: CBC reveals an elevated white blood cell count last night of 15. 8 with hemoglobin of 12. Today, her white blood cell count is 13.0, hemoglobin is 10.6, platelet cou nt is normal at 280. Her differential is essentially normal. Chemistry panel reveals minor electrol yte abnormalities. Her CO2 level is down from 24 last night to 22 today. Renal function with preser dylon liver function is unremarkable. Albumin level this morning is 3.2. ASSESSMENT: Patient with multiple medical issues who presents with microperforated diverticulitis. It is difficult to discern the exact area of her colon, which the area was perforated. Additionally, she has an extensive amount of stool in the right colon. It is uncertain why that she appears to be accumulated stool in the right with that essentially decompressed left. For now, she does not appea r to have peritonitis and I recommend conservative nonoperative treatment. She has been started on I V antibiotics with which I agree. I would recommend that she begin taking a clear liquid diet as she tolerates and she increase her activity level, but walking a few times a day. It is possible that h er current infectious problem will progress and she will require surgery. Given her limited toleranc e for surgery given her underlying medical situation, probably recommend a laparoscopic washout if sh e required anything at this time. I also spoke with her regarding the possibility of an elective sig moid colectomy after she heals from this event, as she would be at significant risk for continued rec urrent problems and complications of the diverticulitis. I discussed all this in detail with the epifanio ashley and her son. They understand and agree to proceed in this fashion. She will be able to drink c lear liquids, which will be kept on IV antibiotics. I will check back on her a couple of days after I return for the weekend.
[2017-10-21] MEDS: Piperacillin/Tazobactam 3.375 GM in Sodium Chloride 0.9% 100 ML IVPB SCH ×4 (02:56→20:45)
[2017-10-21] MEDS: hydrALAZINE 20 MG/ML VIAL SLOW IVP PRN (03:02)
[2017-10-21 04:37] LABS: #Lymphocytes 1.5 thou/uL (1.20-3.40); #Monocytes 0.1 thou/uL (0.11-0.59); #Neutrophils 9.4 thou/uL (1.40-6.50); %Eosinophils 0.4 % (0.0-10.0); %Lymphocytes 13.3 % (21.0-51.0); %Monocytes 1.1 % (0.0-10.0); %Neutrophils 85.2 % (42.0-75.0); Mean Corpuscular HGB CONC 32.8 g/dL (32.0-36.0); Mean Corpuscular Hemoglobin 28.4 pg (27.0-31.0); Mean Corpuscular Volume 86.6 fl (81.0-99.0); Mean Platelet Volume 6.5 fL (7.4-10.4); Platelet Count 265 thou/uL (130-400); RBC Distribution Width 13.3 % (11.5-14.5); Red Blood Cell (RBC) Count 3.88 mill/uL (4.20-5.40)
[2017-10-21 05:02] LABS: ALT (SGPT) 21 U/L (8-55); AST (SGOT) 19 U/L (5-34); Albumin 3.2 g/dL (3.4-4.8); Alkaline Phosphatase 58 U/L (40-150); Anion Gap 13 mmol/L (10-20); BUN (Urea Nitrogen) 14 mg/dL (9.8-20.1); Bilirubin, Total 0.7 mg/dL (0.2-1.2); Calc. Creatinine Clearance 71 mL/min (70-130); Calcium 8.8 mg/dL (7.8-10.44); Carbon Dioxide 23 mmol/L (23-31); Chloride 101 mmol/L (98-107); Estimated GFR-MDRD 86; Globulin 2.6 g/dL (2.4-3.5); Glucose 160 mg/dL (83-110); Potassium 3.7 mmol/L (3.5-5.1); Protein, Total 5.8 g/dL (6.0-8.3); Sodium 133 mmol/L (136-145)
[2017-10-21] MEDS: Nitroglycerin 2% Ointment 1 INCH/1 GM Packet TOP SCH ×2 (05:37→15:53)
[2017-10-21] MEDS: Propranolol 60 MG TAB PO SCH ×3 (05:38→20:50)
[2017-10-21] MEDS: cloNIDine 0.3 MG TAB PO SCH ×3 (08:21→20:49)
[2017-10-21] MEDS: hydrALAZINE 25 MG TAB PO SCH ×3 (08:21→20:49)
[2017-10-21] MEDS: Saccharomyces boulardii 250 MG CAP PO SCH (08:21)
[2017-10-21] MEDS: Lisinopril 5 MG TAB PO SCH (08:21)
[2017-10-21] MEDS: Multivitamin W/ Minerals 1 TAB PO SCH (08:22)
[2017-10-21] MEDS: Polyethylene Glycol 3350 17 GM Packet PO SCH (08:22)
[2017-10-21] MEDS: HYDROcodone/Acetaminophen 5/325 mg Tablet PO PRN (08:34)
[2017-10-21] MEDS: Thyroid 60 MG TAB PO SCH (09:21)
[2017-10-21] MEDS: Famotidine/PF 20 mg/2ml Vial SLOW IVP SCH ×2 (09:22→21:37)
--- NOTE | 2017-10-21 10:43 | PDOC.PN ---
- Subjective Encounter Start Date: 10/21/17 Encounter Start Time: 09:15 Subjective: abd pain is better, no nausea -: no chest pain or palp - Objective Resuscitation Status: Resuscitation Status DNR:Do Not Resuscitate MAR Reviewed: Yes Vital Signs & Weight: Vital Signs (12 hours) Temp Pulse Resp BP BP BP Pulse Ox 10/21/17 08:21 71 185/55 H 10/21/17 08:20 98.9 F 18 96 10/21/17 04:32 97.9 F 67 18 157/68 H 96 10/21/17 03:03 94 L 10/21/17 03:02 61 10/21/17 00:00 98.1 F 61 17 194/81 H 94 L I&O: 10/20/17 10/21/17 10/22/17 06:59 06:59 06:59 Intake Total 250 2030 Balance 250 2030 Result Diagrams: 10/21/17 03:48 10/21/17 03:48 Phys Exam - Physical Examination HEENT: PERRLA, moist MMs Neck: no JVD, supple Respiratory: no wheezing, no rales Cardiovascular: RRR, no significant murmur Gastrointestinal: soft, no distention, positive bowel sounds mild tenderness in ruq today, no rigidity Musculoskeletal: no edema, pulses present Neurological: non-focal, moves all 4 limbs Psychiatric: normal affect, A&O x 3 Dx/Plan (1) Acute diverticulitis of intestine Code(s): K57.92 - DVTRCLI OF INTEST, PART UNSP, W/O PERF OR ABSCESS W/O BLEED Status: Chronic Comment: recurrent, complicated, with microabscess/ perforation. (2) Sepsis Code(s): A41.9 - SEPSIS, UNSPECIFIED ORGANISM Status: Acute Qualifiers: Sepsis type: sepsis due to unspecified organism Qualified Code(s): A41.9 - Sepsis, unspecified organism (3) Chronic anemia Code(s): D64.9 - ANEMIA, UNSPECIFIED Status: Chronic (4) H/O CHF Code(s): Z86.79 - PERSONAL HISTORY OF OTHER DISEASES OF THE CIRCULATORY SYSTEM Status: Chronic Comment: with diastolic dysfunction (5) Hypertension Code(s): I10 - ESSENTIAL (PRIMARY) HYPERTENSION Status: Chronic Comment: uncontrolled (6) Chronic atrial fibrillation Code(s): I48.2 - CHRONIC ATRIAL FIBRILLATION Status: Chronic Comment: h/o Watchman device (7) Hyperlipidemia Code(s): E78.5 - HYPERLIPIDEMIA, UNSPECIFIED Status: Chronic Qualifiers: Hyperlipidemia type: unspecified Qualified Code(s): E78.5 - Hyperlipidemia , unspecified (8) Hypothyroidism Code(s): E03.9 - HYPOTHYROIDISM, UNSPECIFIED Status: Chronic Qualifiers: Hypothyroidism type: acquired Qualified Code(s): E03.9 - Hypothyroidism, unspecified Comment: stable continue to monitor (9) Sjogren's syndrome Code(s): M35.00 - SICCA SYNDROME, UNSPECIFIED Status: Chronic Qualifiers: Sjogren's organ involvement: unspecified organ involvement Qualified Code(s ): M35.00 - Sicca syndrome, unspecified - Plan hemostable -: gentle iv hydration, watch for electrolytes -: start liq diet -: tx to med/medsurg floor -: continue iv steroids, zosyn, to amb as tolerated * . Review of Systems - Medications/Allergies Allergies/Adverse Reactions: Allergies Allergy/AdvReac Type Severity Reaction Status Date / Time amlodipine Allergy "swelled Verified 10/20/17 14:12 in feet and legs" mesalamine Allergy Verified 10/20/17 14:12 morphine Allergy Verified 10/20/17 14:12 Medications: Current Medications Acetaminophen (Tylenol) 650 mg PO Q4H PRN PRN Reason: Headache/Fever or Pain Acetaminophen (Tylenol) 650 mg NC Q4H PRN PRN Reason: Headache/Fever or Pain Hydrocodone Bitart/Acetaminophen ([place] 5/325) 1 tab PO Q4H PRN PRN Reason: Moderate Pain (4-6) Stop: 10/22/17 01:46 Last Admin: 10/21/17 08:34 Dose: 1 tab Al Hydroxide/Mg Hydroxide (Maalox) 30 ml PO Q6H PRN PRN Reason: Heartburn or Indigestion Albuterol Sulfate (Ventolin) 2.5 mg NEB [id number] PRN PRN Reason: Wheezing Albuterol/Ipratropium (Duoneb) 3 ml NEB Q4H PRN PRN Reason: SOB &/or Wheezing Calcium Carbonate (Tums) 1,000 mg PO Q4H PRN PRN Reason: Heartburn or Indigestion Clonidine (Catapres) 0.1 mg PO Q4H PRN PRN Reason: Systolic BP > 180 Clonidine (Catapres) 0.3 mg PO TID COUNT INCLUDES [facility] Last Admin: 10/21/17 08:21 Dose: 0.3 mg Famotidine (Pepcid) 20 mg SLOW IVP Q12HR COUNT [facility]CLUDES [facility] Last Admin: 10/21/17 09:22 Dose: 20 mg Hydralazine HCl (Apresoline) 10 mg SLOW IVP Q4H PRN PRN Reason: SBP Greater Than 180 Last Admin: 10/21/17 03:02 Dose: 10 mg Hydralazine HCl (Apresoline) 100 mg PO TID COUNT [facility]CLUD[facility] Last Admin: 10/21/17 08:21 Dose: 100 mg Piperacillin Sod/Tazobactam (Sod 3.375 gm/ Sodium Chloride) 100 mls @ 200 mls/ hr IVPB 0200,0800,1400,2000 [facility] Stop: 10/24/17 09:00 Last Admin: 10/21/17 08:20 Dose: 100 mls Sodium Chloride (Normal Saline 0.9%) 1,000 mls @ 50 mls/hr IV .Q20H COUNT [facility]CLUDES [facility] Last Admin: 10/20/17 14:23 Dose: 1,000 mls Iron/Minerals/Multivitamins (Theragran M) 1 tab PO DAILY COUNT [facility]CLUD[facility] Last Admin: 10/21/17 08:22 Dose: 1 tab Lisinopril (Zestril) 5 mg PO DAILY [facility]CLUD[facility] Last Admin: 10/21/17 08:21 Dose: 5 mg Lorazepam (Ativan) 0.5 mg SLOW IVP Q6H PRN PRN Reason: Anxiety/Agitation Methylprednisolone Sodium Succinate (Solu-Medrol) 20 mg IVP Q8HR COUNT [facility]CLUDES [facility] Last Admin: 10/21/17 05:37 Dose: 20 mg Nitroglycerin (Nitrostat) 0.4 mg PO Q5MIN PRN PRN Reason: Chest Pain Nitroglycerin (Nitro-Bid 2% Ointment) 0.5 inch TOP Q8HR COUNT [facility]CLUDES [facility] Last Admin: 10/21/17 05:37 Dose: 0.5 inch Ondansetron HCl (Zofran Odt) 4 mg PO Q6H PRN PRN Reason: Nausea/Vomiting Last Admin: 10/20/17 12:18 Dose: 4 mg Ondansetron HCl (Zofran) 4 mg IVP Q6H PRN PRN Reason: Nausea/Vomiting Polyethylene Glycol (Miralax) 17 gm PO DAILY COUNT [facility]CLUD[facility] Last Admin: 10/21/17 08:22 Dose: 17 gm Propranolol HCl (Inderal) 60 mg PO Q8HR COUNT [facility]CLUDES [facility] Last Admin: 10/21/17 05:38 Dose: 60 mg Saccharomyces Boulardii (Florastor) 250 mg PO DAILY COUNT [facility]CLUD[facility] Last Admin: 10/21/17 08:21 Dose: 250 mg Thyroid ([place] Thyroid) 60 mg PO QAM COUNT [facility]CLUDES [facility] Last Admin: 10/21/17 09:21 Dose: 60 mg
--- NOTE | 2017-10-21 14:43 | CON ---
DATE OF CONSULTATION: 10/20/2017 REASON FOR CONSULTATION: Suspected diverticulitis with microperforation. HISTORY OF PRESENT ILLNESS: Ms. Carrera is a pleasant 76-year-old female well known to me from previous evaluations. She presented to the emergency room last night with left lower and left upper quadrant abdominal pain, which is very typical of her diverticular disease. She felt it has been worsening over the past couple of days. She came to the emergency room and was noted to have fever. She had a CAT scan that showed diverticulitis with free air, somewhere under the left hemidiaphragm. She has been admitted and placed on antibiotics. General Surgery has seen her and has recommended for a period of cooling down prior to any operative management. She has had a liver biopsy in the past for some functional bowel disorder and reflux. She has had upper and lower endoscopies in 2012, in the more recently when she began to have some episodes of diverticulitis. There were concerns that possibly some of this was colitis or even ischemic colitis. She underwent a colonoscopy last fall and that exam showed no signs of colitis at all. She had severe yost diverticular disease. She has signs of resolving acute diverticulitis at that time. The issue is a bit difficult for her that she has chronic rheumatologic disease with Sjogren syndrome and is on chronic steroids for this in the past. She has actually had microperforation, Surgery did not want to operate on her because of her chronic steroid use and the comorbidities to go along with that. She has actually done pretty well. We would treat her with Asacol and fiber daily for prophylaxis of further bouts of diverticulitis until this episode. Her last admission for diverticulitis was in 05/2017. PAST MEDICAL HISTORY: Adrenal insufficiency secondary to chronic steroid use she will need stress dose steroids when she is hospitalized, atrial fibrillation previous Watchman procedure, hyperlipidemia, hypothyroidism, hypertension, osteoarthritis, Sjogren syndrome. PAST SURGICAL HISTORY: Hysterectomy, thyroidectomy, recent upper and lower endoscopy in 01/27/2017 and 01/30/2017 respectively. HOME MEDICATIONS: Prednisone 50 mg daily, hydralazine, thyroid, ,pravastatin, propranolol, potassium chloride, polyethylene glycol daily for constipation, multivitamin, loperamide, lisinopril, hydrocodone p.r.n., furosemide, folic acid , clonidine, bisoprolol, aspirin, aluminum, Maalox, acetaminophen, albuterol and Asacol. PRESENT MEDICATIONS: Tylenol, Maalox, DuoNeb, Ventolin, Catapres, Pepcid, fentanyl p.r.n., Apresoline p.r.n., Zocor p.r.n., multivitamin, lisinopril, Solu -Medrol 20 mg IV q.8, Zosyn, MiraLax, Saccharomyces boulardii. PHYSICAL EXAMINATION: VITAL SIGNS: T-Max 101 on presentation presently 99, pulse 65, respirations 16 , O2 sat 98%, blood pressure 180/74. GENERAL: Patient is resting comfortably in bed. She has got a family member at the bedside. She is in no distress. She is cushingoid appearance. HEENT: Oropharynx slightly dry. NECK: Supple without adenopathy. LUNGS: Clear. HEART: Regular rate and rhythm without clicks or murmurs. ABDOMEN: Quiet bowel sounds. She has got some left upper quadrant tenderness with some voluntary guarding. There is no rebound. There is no shifting dullness. EXTREMITIES: No clubbing, cyanosis or edema. LABORATORY AND X-RAY FINDINGS: CT scan was reviewed. There is quite a bit of stool in the right side of the colon. There is a severe diverticular disease throughout the colon. White count 15,000 yesterday 13333 today, hemoglobin 10.6 , platelet count 280. Differential normal. INR 1. Sodium 133, potassium 4, chloride 102, bicarbonate 22, BUN and creatinine are 14 and 0.69, protein 7.5, albumin is 3.2, globulin is 2.3. CT scan as above. ASSESSMENT: Diverticulitis, recurrent with microperforation. Talk with General Surgery, we are going to continue antibiotics, stress dose steroids, IV fluids, clear liquids and ice chips per General Surgery. Follow her with conservative therapy at the weekend to calm things down and then I think it would be reasonable once again consider surgery as she has had 2 episodes of diverticulitis with microperforation despite maximizing therapy with fiber and MiraLax for constipation and Asacol as an anti-inflammatory in the colon to decrease bouts of recurrent diverticular disease. Dr. Alfonso seen the patient and is outlined his plans, which he discussed in his note. [facility]
--- NOTE | 2017-10-21 16:18 | PRG ---
DATE OF SERVICE: 10/21/2017 SUBJECTIVE: Ms. Carrera feels much better. She has much less pain. PHYSICAL EXAMINATION: VITAL SIGNS: Temperature 98, is afebrile overnight; pulse 18; blood pressure 182/69. GENERAL: Again, she is mildly cushingoid in appearance. She is in good spirits. She is in no distr ess. LUNGS: Clear. HEART: Regular rate and rhythm. ABDOMEN: Much less tender today than yesterday. LABORATORY STUDIES: White count is down to 11 from 15 on admission, hemoglobin is 11, platelet count 265. Sodium 133, potassium 3.7, BUN and creatinine are 14 and 0.67. ASSESSMENT: 1. Diverticulitis with microperforation with some free air in the left diaphragm. This is the secon d time this has happened. With her chronic steroid use and dependency, there has been a concern in t he surgeon's part in the past by resecting or should be at risk for complications of poor wound heali ng. They have reevaluated at this time and feel that in light of the second perforation with diverti cular disease, she is probably going to require resection, but they want to cool her off with antibio tics, which seems to be reasonable. 2. Adrenal insufficiency, on stress dose steroids. RECOMMENDATIONS: 1. Continue stress dose steroids. 2. Continue IV antibiotics. 3. Clear liquids are fine, we would not advance beyond this. 4. Dr. Alfonso will return to reevaluate her in regard to timing of possible surgery on Monday.
[2017-10-21] MEDS: Sodium Chloride 0.9% 1,000 ML IV SCH (18:22)
[2017-10-21] MEDS: Lorazepam 2 MG/ML VIAL SLOW IVP PRN (21:38)
[2017-10-22] MEDS: Piperacillin/Tazobactam 3.375 GM in Sodium Chloride 0.9% 100 ML IVPB SCH ×4 (02:18→20:12)
[2017-10-22] MEDS: Propranolol 60 MG TAB PO SCH ×3 (06:01→23:08)
[2017-10-22] MEDS: Sodium Chloride 0.9% 1,000 ML IV SCH (06:06)
[2017-10-22 08:05] LABS: #Basophils 0.1 thou/uL (0.0-0.2); #Lymphocytes 1.2 thou/uL (1.20-3.40); #Monocytes 0.5 thou/uL (0.11-0.59); #Neutrophils 11.2 thou/uL (1.40-6.50); %Basophils 0.5 % (0.0-1.0); %Eosinophils 0.3 % (0.0-10.0); %Lymphocytes 9.1 % (21.0-51.0); %Monocytes 4.1 % (0.0-10.0); Hemoglobin 11.6 g/dL (12.0-16.0); Mean Corpuscular HGB CONC 33.7 g/dL (32.0-36.0); Mean Corpuscular Hemoglobin 29.1 pg (27.0-31.0); Mean Corpuscular Volume 86.3 fl (81.0-99.0); Mean Platelet Volume 6.5 fL (7.4-10.4); Platelet Count 332 thou/uL (130-400); RBC Distribution Width 13.4 % (11.5-14.5)
[2017-10-22 08:31] LABS: Anion Gap 15 mmol/L (10-20); BUN (Urea Nitrogen) 20 mg/dL (9.8-20.1); Calc. Creatinine Clearance 62 mL/min (70-130); Calcium 8.9 mg/dL (7.8-10.44); Carbon Dioxide 21 mmol/L (23-31); Chloride 102 mmol/L (98-107); Estimated GFR-MDRD 74; Glucose 188 mg/dL (83-110); Potassium 3.3 mmol/L (3.5-5.1); Sodium 135 mmol/L (136-145)
[2017-10-22] MEDS: Saccharomyces boulardii 250 MG CAP PO SCH (08:39)
[2017-10-22] MEDS: cloNIDine 0.3 MG TAB PO SCH ×3 (08:39→20:13)
[2017-10-22] MEDS: NIFEdipine XL 60 MG TAB PO SCH (08:39)
[2017-10-22] MEDS: hydrALAZINE 25 MG TAB PO SCH ×3 (08:39→20:13)
[2017-10-22] MEDS: Thyroid 60 MG TAB PO SCH (08:39)
[2017-10-22] MEDS: Lisinopril 10 MG TAB PO SCH ×2 (08:39→20:13)
[2017-10-22] MEDS: Multivitamin W/ Minerals 1 TAB PO SCH (08:40)
[2017-10-22] MEDS: HYDROcodone/Acetaminophen 5/325 mg Tablet PO PRN (08:40)
[2017-10-22] MEDS: Polyethylene Glycol 3350 17 GM Packet PO SCH (08:40)
[2017-10-22] MEDS ORDERED: Ketorolac Tromethamine 30 MG/ML VIAL IVP PRN (09:48)
[2017-10-22] MEDS ORDERED: predniSONE 5 MG TAB PO SCH (10:00)
--- NOTE | 2017-10-22 10:37 | PDOC.PN ---
- Subjective Encounter Start Date: 10/22/17 Encounter Start Time: 08:20 Subjective: pt is upset, agitated that her home meds of miralax and norco were not give -: c/o abd pain all over, no nausea -: says she has not gotten anything to eat, friend at bedside - Objective Resuscitation Status: Resuscitation Status DNR:Do Not Resuscitate MAR Reviewed: Yes Vital Signs & Weight: Vital Signs (12 hours) Temp Pulse Resp BP BP Pulse Ox 10/22/17 08:39 77 190/75 H 10/22/17 07:56 98.1 F 77 20 205/80 H 96 10/22/17 04:00 98 F 71 16 193/77 H 95 10/22/17 00:00 98 F 72 16 186/69 H 95 I&O: 10/21/17 10/22/17 10/23/17 06:59 06:59 06:59 Intake Total 2029 1881 Output Total 1130 Balance 2029 751 Result Diagrams: 10/22/17 07:57 10/22/17 07:57 Phys Exam - Physical Examination HEENT: PERRLA, sclera anicteric Neck: no JVD, supple Respiratory: no wheezing, no rales Cardiovascular: RRR, no significant murmur Gastrointestinal: soft, no distention, positive bowel sounds no rigidity or guarding Musculoskeletal: no edema, pulses present Neurological: non-focal, moves all 4 limbs agitated and anxious Dx/Plan (1) Acute diverticulitis of intestine Code(s): K57.92 - DVTRCLI OF INTEST, PART UNSP, W/O PERF OR ABSCESS W/O BLEED Status: Chronic Comment: recurrent, complicated, with microabscess/ perforation. (2) Sepsis Code(s): A41.9 - SEPSIS, UNSPECIFIED ORGANISM Status: Acute Qualifiers: Sepsis type: sepsis due to unspecified organism Qualified Code(s): A41.9 - Sepsis, unspecified organism (3) Chronic anemia Code(s): D64.9 - ANEMIA, UNSPECIFIED Status: Chronic (4) H/O CHF Code(s): Z86.79 - PERSONAL HISTORY OF OTHER DISEASES OF THE CIRCULATORY SYSTEM Status: Chronic Comment: with diastolic dysfunction (5) Hypertension Code(s): I10 - ESSENTIAL (PRIMARY) HYPERTENSION Status: Chronic Comment: uncontrolled (6) Chronic atrial fibrillation Code(s): I48.2 - CHRONIC ATRIAL FIBRILLATION Status: Chronic Comment: h/o Watchman device (7) Hyperlipidemia Code(s): E78.5 - HYPERLIPIDEMIA, UNSPECIFIED Status: Chronic Qualifiers: Hyperlipidemia type: unspecified Qualified Code(s): E78.5 - Hyperlipidemia , unspecified (8) Hypothyroidism Code(s): E03.9 - HYPOTHYROIDISM, UNSPECIFIED Status: Chronic Qualifiers: Hypothyroidism type: acquired Qualified Code(s): E03.9 - Hypothyroidism, unspecified Comment: stable continue to monitor (9) Sjogren's syndrome Code(s): M35.00 - SICCA SYNDROME, UNSPECIFIED Status: Chronic Qualifiers: Sjogren's organ involvement: unspecified organ involvement Qualified Code(s ): M35.00 - Sicca syndrome, unspecified - Plan likely more agitated from iv steroids, will switch to oral prednisone -: pt is on miralax and other home meds, not sure if she is really oriented -: d/w RN, she will help to order clear liq diet -: she says she is not on buspar, will get accurate home med list from her pha -: -rmacy, to amb as tolerated. Xanax bid to control her extreme anxiety * . fentanyl patch, toradol iv prn for pain watch for resp depression, pt is DNR Pastoral consultation Will f/u later to see if she calms down and happy with everything we are doing to help her. Review of Systems - Medications/Allergies Allergies/Adverse Reactions: Allergies Allergy/AdvReac Type Severity Reaction Status Date / Time amlodipine Allergy "swelled Verified 10/20/17 14:12 in feet and legs" mesalamine Allergy Verified 10/20/17 14:12 morphine Allergy Verified 10/20/17 14:12 Medications: Current Medications Acetaminophen (Tylenol) 650 mg PO Q4H PRN PRN Reason: Headache/Fever or Pain Acetaminophen (Tylenol) 650 mg ID Q4H PRN PRN Reason: Headache/Fever or Pain Hydrocodone Bitart/Acetaminophen ([place] 5/325) 1 tab PO Q6H PRN PRN Reason: Pain Last Admin: 10/22/17 08:40 Dose: 1 tab Al Hydroxide/Mg Hydroxide (Maalox) 30 ml PO Q6H PRN PRN Reason: Heartburn or Indigestion Last Admin: 10/22/17 04:11 Dose: 30 ml Albuterol Sulfate (Ventolin) 2.5 mg NEB [id number] PRN PRN Reason: Wheezing Albuterol/Ipratropium (Duoneb) 3 ml NEB Q4H PRN PRN Reason: SOB &/or Wheezing Alprazolam (Xanax) 0.25 mg PO BID [facility] Calcium Carbonate (Tums) 1,000 mg PO Q4H PRN PRN Reason: Heartburn or Indigestion Clonidine (Catapres) 0.1 mg PO Q4H PRN PRN Reason: Systolic BP > 180 Clonidine (Catapres) 0.3 mg PO TID [facility] Last Admin: 10/22/17 08:39 Dose: 0.3 mg Fentanyl (Duragesic) 25 mcg TD Q3D [facility] Hydralazine HCl (Apresoline) 10 mg SLOW IVP Q4H PRN PRN Reason: SBP Greater Than 180 Last Admin: 10/21/17 03:02 Dose: 10 mg Hydralazine HCl (Apresoline) 100 mg PO TID [facility] Last Admin: 10/22/17 08:39 Dose: 100 mg Piperacillin Sod/Tazobactam (Sod 3.375 gm/ Sodium Chloride) 100 mls @ 200 mls/ hr IVPB 0200,0800,1400,2000 [facility] Stop: 10/24/17 09:00 Last Admin: 10/22/17 08:39 Dose: 100 mls Sodium Chloride (Normal Saline 0.9%) 1,000 mls @ 50 mls/hr IV .Q20H [facility] Last Admin: 10/22/17 06:06 Dose: Not Given Iron/Minerals/Multivitamins (Theragran M) 1 tab PO DAILY [facility] Last Admin: 10/22/17 08:40 Dose: 1 tab Ketorolac Tromethamine (Toradol) 15 mg IVP Q6H PRN PRN Reason: Pain Stop: 10/27/17 09:49 Lisinopril (Zestril) 10 mg PO BID [facility] Last Admin: 10/22/17 08:39 Dose: 10 mg Lorazepam (Ativan) 0.5 mg SLOW IVP Q6H PRN PRN Reason: Anxiety/Agitation Last Admin: 10/21/17 21:38 Dose: 0.5 mg Nifedipine (Procardia Xl) 60 mg PO DAILY [facility] Last Admin: 10/22/17 08:39 Dose: 60 mg Nitroglycerin (Nitrostat) 0.4 mg PO Q5MIN PRN PRN Reason: Chest Pain Non-Formulary Medication (Folic Acid [Folic Acid]) 20 mg PO DAILY [facility] Ondansetron HCl (Zofran Odt) 4 mg PO Q6H PRN PRN Reason: Nausea/Vomiting Last Admin: 10/20/17 12:18 Dose: 4 mg Ondansetron HCl (Zofran) 4 mg IVP Q6H PRN PRN Reason: Nausea/Vomiting Pantoprazole Sodium (Protonix) 40 mg PO DAILY [facility] Polyethylene Glycol (Miralax) 17 gm PO DAILY [facility] Last Admin: 10/22/17 08:40 Dose: 17 gm Prednisone (Prednisone) 10 mg PO NOW [facility] Stop: 10/22/17 12:00 Prednisone (Prednisone) 10 mg PO QA[facility] Propranolol HCl (Inderal) 60 mg PO Q8HR [facility] Last Admin: 10/22/17 06:01 Dose: 60 mg Saccharomyces Boulardii (Florastor) 250 mg PO DAILY [facility] Last Admin: 10/22/17 08:39 Dose: 250 mg Sodium Chloride (Flush - Normal Saline) 10 ml IVF Q12HR [facility] Sodium Chloride (Flush - Normal Saline) 10 ml IVF PRN PRN PRN Reason: Saline Flush Thyroid ([place] Thyroid) 60 mg PO QAM [facility] Last Admin: 10/22/17 08:39 Dose: 60 mg
[2017-10-22] MEDS ORDERED: Acetaminophen 1,000 MG in Premix Bag 1 BAG IVPB PRN (11:34)
[2017-10-22] MEDS ORDERED: Bisacodyl 10 MG SUPP PR SCH (11:45)
--- NOTE | 2017-10-22 13:04 | PRG ---
DATE OF SERVICE: 10/22/2017 SUBJECTIVE: Ms. Carrera has had some pain last night. There were some issues of her pain medicines wh ich she has gotten back on a pain pill. She said she had a small bowel movement this morning. She h as had some issues with blood pressure getting high and she was upset because she was not on her home medications. She is doing better now. OBJECTIVE: VITAL SIGNS: Blood pressure 190/75, pulse 87, temperature 98.1. ABDOMEN: Soft, mildly tender in left upper quadrant and lower abdomen. There is no rebound or guard ing. LABORATORY STUDIES: White count 13, hemoglobin 11.6, platelet count 332. Sodium 135, potassium 3.3. BUN and creatinine are 20 and 0.7, bicarbonate is 21. ASSESSMENT: 1. Diverticulitis with microperforation on Zosyn. 2. Abdominal pain, she was given Toradol. 3. Hypertension, her home medicines have not been restarted, explained to her that when she came in with septic and appraiser art likely did not want to place her on blood pressure medicine with fear of he r getting septic and hypotensive. 4. Chronic steroid use at home. Stress dose steroids. RECOMMENDATIONS: 1. I stop the Toradol. She is a 76-year-old woman, increased risk of renal effect from that also sh e is on chronic steroids and be at risk for ulcers. 2. We will go ahead and start her on a Dulcolax suppository and continue her MiraLax daily. 3. We will use meds for pain.
[2017-10-22] MEDS: Famotidine/PF 20 mg/2ml Vial SLOW IVP SCH (18:39)
[2017-10-22] MEDS: Ondansetron ODT 4 MG TAB PO PRN (18:47)
[2017-10-22] MEDS: ALPRAZolam 0.25 MG TAB PO SCH (20:14)
[2017-10-22] MEDS: Lorazepam 2 MG/ML VIAL SLOW IVP PRN (20:23)
[2017-10-22] MEDS ORDERED: busPIRone HCl 10 MG TAB PO SCH (21:00)
[2017-10-22] MEDS: Bisacodyl 10 MG SUPP PR SCH (21:39)
[2017-10-23] MEDS: Piperacillin/Tazobactam 3.375 GM in Sodium Chloride 0.9% 100 ML IVPB SCH ×4 (02:51→20:23)
[2017-10-23] MEDS: Sodium Chloride 0.9% 1,000 ML IV SCH ×2 (02:51→23:26)
[2017-10-23 05:21] LABS: #Eosinphils 0.1 thou/uL (0.0-0.7); #Lymphocytes 1.4 thou/uL (1.20-3.40); #Monocytes 0.7 thou/uL (0.11-0.59); %Basophils 0.2 % (0.0-1.0); %Eosinophils 0.6 % (0.0-10.0); %Lymphocytes 13.5 % (21.0-51.0); %Monocytes 7.2 % (0.0-10.0); %Neutrophils 78.6 % (42.0-75.0); Hemoglobin 10.5 g/dL (12.0-16.0); Mean Corpuscular HGB CONC 34.2 g/dL (32.0-36.0); Mean Corpuscular Hemoglobin 29.6 pg (27.0-31.0); Mean Corpuscular Volume 86.5 fl (81.0-99.0); Mean Platelet Volume 6.4 fL (7.4-10.4); Platelet Count 265 thou/uL (130-400); RBC Distribution Width 13.3 % (11.5-14.5); Red Blood Cell (RBC) Count 3.54 mill/uL (4.20-5.40); White Blood Cell (WBC) Count 10.2 thou/uL (4.8-10.8)
[2017-10-23 05:35] LABS: Anion Gap 11 mmol/L (10-20); BUN (Urea Nitrogen) 14 mg/dL (9.8-20.1); Calc. Creatinine Clearance 73 mL/min (70-130); Calcium 8.4 mg/dL (7.8-10.44); Carbon Dioxide 24 mmol/L (23-31); Chloride 101 mmol/L (98-107); Estimated GFR-MDRD 89; Glucose 144 mg/dL (83-110); Sodium 133 mmol/L (136-145)
[2017-10-23] MEDS: Propranolol 60 MG TAB PO SCH ×3 (05:55→23:28)
[2017-10-23] MEDS: cloNIDine 0.3 MG TAB PO SCH ×3 (08:12→20:26)
[2017-10-23] MEDS: Thyroid 60 MG TAB PO SCH (08:13)
[2017-10-23] MEDS: Multivitamin W/ Minerals 1 TAB PO SCH (08:14)
[2017-10-23] MEDS: Lisinopril 10 MG TAB PO SCH ×2 (08:14→20:27)
[2017-10-23] MEDS: predniSONE 5 MG TAB PO SCH (08:15)
[2017-10-23] MEDS: NIFEdipine XL 60 MG TAB PO SCH (08:15)
[2017-10-23] MEDS: Saccharomyces boulardii 250 MG CAP PO SCH (08:16)
[2017-10-23] MEDS: ALPRAZolam 0.25 MG TAB PO SCH ×2 (08:16→20:26)
[2017-10-23] MEDS: hydrALAZINE 25 MG TAB PO SCH ×3 (08:16→20:26)
[2017-10-23] MEDS: Bisacodyl 10 MG SUPP PR SCH ×2 (08:17→20:26)
[2017-10-23] MEDS: Polyethylene Glycol 3350 17 GM Packet PO SCH (08:18)
[2017-10-23] MEDS: HYDROcodone/Acetaminophen 5/325 mg Tablet PO PRN ×2 (09:00→23:27)
[2017-10-23] MEDS ORDERED: FOLIC ACID 20 MG PO SCH (09:00)
--- NOTE | 2017-10-23 09:55 | PDOC.PN ---
- Subjective Encounter Start Date: 10/23/17 Encounter Start Time: 14:00 Subjective: Patient reports some improvement in abdominal pain. A few episodes of -: dark diarrhea this AM. - Objective Resuscitation Status: Resuscitation Status DNR:Do Not Resuscitate MAR Reviewed: Yes Vital Signs & Weight: Vital Signs (12 hours) Temp Pulse Resp BP BP BP Pulse Ox 10/23/17 08:17 98.0 F 62 20 94 L 10/23/17 08:16 62 172/69 H 10/23/17 08:15 62 172/69 H 10/23/17 08:14 172/69 H 10/23/17 08:12 172/69 H 10/23/17 07:41 98.0 F 62 20 172/80 H 94 L 10/23/17 05:55 66 18 160/61 H 92 L 10/22/17 23:08 125/54 L I&O: 10/22/17 10/23/17 10/24/17 06:59 06:59 06:59 Intake Total 1881 764 Output Total 1130 1450 Balance 751 -686 Result Diagrams: 10/23/17 04:21 10/23/17 04:21 Phys Exam - Physical Examination Constitutional: NAD HEENT: moist MMs Respiratory: no wheezing, no rales, no rhonchi Cardiovascular: RRR, no significant murmur Gastrointestinal: soft, positive bowel sounds TTP LLQ Neurological: non-focal, moves all 4 limbs Psychiatric: normal affect, A&O x 3 Dx/Plan (1) Acute diverticulitis of intestine Code(s): K57.92 - DVTRCLI OF INTEST, PART UNSP, W/O PERF OR ABSCESS W/O BLEED Status: Chronic Comment: recurrent, complicated, with microabscess/ perforation. (2) Sepsis Code(s): A41.9 - SEPSIS, UNSPECIFIED ORGANISM Status: Acute Qualifiers: Sepsis type: sepsis due to unspecified organism Qualified Code(s): A41.9 - Sepsis, unspecified organism (3) Chronic anemia Code(s): D64.9 - ANEMIA, UNSPECIFIED Status: Chronic (4) H/O CHF Code(s): Z86.79 - PERSONAL HISTORY OF OTHER DISEASES OF THE CIRCULATORY SYSTEM Status: Chronic Comment: with diastolic dysfunction (5) Chronic atrial fibrillation Code(s): I48.2 - CHRONIC ATRIAL FIBRILLATION Status: Chronic Comment: h/o Watchman device (6) Hyperlipidemia Code(s): E78.5 - HYPERLIPIDEMIA, UNSPECIFIED Status: Chronic Qualifiers: Hyperlipidemia type: unspecified Qualified Code(s): E78.5 - Hyperlipidemia , unspecified (7) Hypertension Code(s): I10 - ESSENTIAL (PRIMARY) HYPERTENSION Status: Chronic Comment: uncontrolled (8) Hypothyroidism Code(s): E03.9 - HYPOTHYROIDISM, UNSPECIFIED Status: Chronic Qualifiers: Hypothyroidism type: acquired Qualified Code(s): E03.9 - Hypothyroidism, unspecified Comment: stable continue to monitor (9) Sjogren's syndrome Code(s): M35.00 - SICCA SYNDROME, UNSPECIFIED Status: Chronic Qualifiers: Sjogren's organ involvement: unspecified organ involvement Qualified Code(s ): M35.00 - Sicca syndrome, unspecified - Plan cont current plan of care, continue antibiotics, PT/OT, DVT proph w/SCDs * . - Discharge Encounter end time: 14:20
--- NOTE | 2017-10-23 10:12 | PRG ---
DATE OF SERVICE: 10/23/2017 Ms. Carrera has been in the hospital since 10/19/2017 with a micro perforated diverticulitis. She has been treated with bowel rest and IV antibiotics. She has never been febrile (but she is on long-term steroids). Her pulse is the 60s (but she is on Inderal). Her blood pressure remains elevated at 17 2/69. She notes that she felt better for most of the weekend, but when she had a bowel movement toda y she started having left-sided abdominal pain again. PHYSICAL EXAMINATION: VITAL SIGNS: She is afebrile, pulse is 62, blood pressure 172/69. LUNGS: Clear to auscultation. ABDOMEN: Soft with normoactive bowel sounds. She does have tenderness focally on the left side of h er abdomen. This is very similar to her examination from 3 days ago when I last saw her. LABORATORY STUDIES: Her white blood cell count is normal today down to 10.2. She was 15.8 when she presented. Her hemoglobin is stable at 10.5. Her chemistry panel shows that her potassium level is dropping each day and today is down to 3.0. That will need to be supplemented. ASSESSMENT: She appears to be stable with nonoperative treatment of her micro perforated diverticuli tis. She has more tenderness than I would have expected at this juncture in her care. I think she i s stable to advance to full liquid diet, maintaining her IV antibiotics. She has been restarted on a ll of her usual medications, I believe. Hopefully, her discomfort will resolve to the point that she may be safely discharged home on oral antibiotics. I would ideally like to defer an elective resect ion of her involved colon until 6-8 weeks from the inciting event (therefore, planning on proceeding somewhere around the end of November/beginning of December).
--- NOTE | 2017-10-23 19:28 | PRG ---
DATE OF SERVICE: 10/23/2017 SUBJECTIVE: Ms. Carrera states she is feeling better. She states that Dr. Alfonso told her maybe she can go home on Monday with plans for surgery in the next 6 weeks. She informs me she still is jonathan ing her Asacol as prophylaxis and her MiraLax and her fiber daily. She is not having pain now. She is tolerating liquid diet. Temperature 98, pulse 69, blood pressure 173/65. Abdomen is much softer. She is nontender. LABORATORY STUDIES: White count is 10, hemoglobin 10.5, platelet count 265,000. Sodium 133, potassi um 3. Base met normal. ASSESSMENT: Recurrent diverticulitis. This is the second time she is actually presented with microp erforation. She had a normal screening colonoscopy in 01/2017, there were some small adenomas. RECOMMENDATIONS: I agree with Dr. Alfonso. I think she is going to need a resection as she continue s to get diverticulitis, last bout of severity was just in June. I am not sure she will make it 6 weeks before returning, but at this point in time, I see no need for preoperative colonoscopy. She has already had one within the last year. She understands she is at high risk with regard to chroni c steroid use, but she keeps coming in perforated with her disease and I think she is going to need t o be resected. We will defer ultimate decision to General Surgery of course.
[2017-10-23] MEDS: Potassium Chloride 20 MEQ TAB PO SCH (20:27)
[2017-10-23] MEDS: Lorazepam 2 MG/ML VIAL SLOW IVP PRN (20:32)
[2017-10-24] MEDS: Piperacillin/Tazobactam 3.375 GM in Sodium Chloride 0.9% 100 ML IVPB SCH ×3 (02:48→14:49)
[2017-10-24] MEDS: Lorazepam 2 MG/ML VIAL SLOW IVP PRN (04:42)
[2017-10-24 05:08] LABS: #Eosinphils 0.2 thou/uL (0.0-0.7); #Monocytes 1.2 thou/uL (0.11-0.59); #Neutrophils 15.1 thou/uL (1.40-6.50); %Eosinophils 1.1 % (0.0-10.0); %Lymphocytes 15.3 % (21.0-51.0); %Monocytes 6.1 % (0.0-10.0); %Neutrophils 77.6 % (42.0-75.0); Hemoglobin 12.8 g/dL (12.0-16.0); Mean Corpuscular HGB CONC 33.4 g/dL (32.0-36.0); Mean Corpuscular Hemoglobin 28.7 pg (27.0-31.0); Mean Platelet Volume 5.9 fL (7.4-10.4); Platelet Count 360 thou/uL (130-400); RBC Distribution Width 13.6 % (11.5-14.5); Red Blood Cell (RBC) Count 4.47 mill/uL (4.20-5.40); White Blood Cell (WBC) Count 19.5 thou/uL (4.8-10.8)
[2017-10-24] MEDS: Propranolol 60 MG TAB PO SCH ×2 (05:18→14:26)
[2017-10-24 05:32] LABS: Anion Gap 13 mmol/L (10-20); BUN (Urea Nitrogen) 8 mg/dL (9.8-20.1); Calc. Creatinine Clearance 76 mL/min (70-130); Calcium 8.7 mg/dL (7.8-10.44); Carbon Dioxide 24 mmol/L (23-31); Chloride 99 mmol/L (98-107); Estimated GFR-MDRD Greater than 90; Glucose 88 mg/dL (83-110); Potassium 3.4 mmol/L (3.5-5.1); Sodium 133 mmol/L (136-145)
[2017-10-24] MEDS: cloNIDine 0.3 MG TAB PO SCH ×2 (08:30→14:24)
[2017-10-24] MEDS: NIFEdipine XL 60 MG TAB PO SCH (08:31)
[2017-10-24] MEDS: Thyroid 60 MG TAB PO SCH (08:31)
[2017-10-24] MEDS: Lisinopril 10 MG TAB PO SCH (08:32)
[2017-10-24] MEDS: hydrALAZINE 25 MG TAB PO SCH ×2 (08:32→14:26)
[2017-10-24] MEDS: Saccharomyces boulardii 250 MG CAP PO SCH (08:32)
[2017-10-24] MEDS: Folic Acid 1 MG TAB PO SCH (08:33)
[2017-10-24] MEDS: Aspirin 81 mg Enteric Coated Tablet PO SCH (08:34)
[2017-10-24] MEDS: predniSONE 5 MG TAB PO SCH (08:34)
[2017-10-24] MEDS: Potassium Chloride 20 MEQ TAB PO SCH (08:35)
[2017-10-24] MEDS: Furosemide 40 MG TAB PO SCH (08:35)
[2017-10-24] MEDS: Multivitamin W/ Minerals 1 TAB PO SCH (08:35)
[2017-10-24] MEDS: Polyethylene Glycol 3350 17 GM Packet PO SCH (08:39)
[2017-10-24] MEDS: Bisacodyl 10 MG SUPP PR SCH (08:39)
[2017-10-24] MEDS: Sodium Chloride 0.9% 1,000 ML IV SCH ×2 (08:39→14:54)
[2017-10-24] MEDS ORDERED: Iopamidol 370 76% 50 ML VIAL FS ONE (11:24)
[2017-10-24] MEDS ORDERED: ISOVUE-370 76%-LOCM 1 ML ONE (11:24)
[2017-10-24] MEDS ORDERED: PROPOFOL 200 MG/20 ML VIAL ONE (13:06)
[2017-10-24] MEDS ORDERED: Lidocaine 1% PF 5 ML VIAL ONE (13:06)
[2017-10-24] MEDS ORDERED: Succinylcholine Chloride 20 MG/ML 10 ml SYRINGE FS ONE (13:06)
[2017-10-24] MEDS ORDERED: Glycopyrrolate 0.2 MG/ML 5 ML SYRINGE ONE (13:06)
--- NOTE | 2017-10-24 14:38 | PRG ---
DATE OF SERVICE: 10/24/2017 Ms. Carrera has been hospitalized since 10/19/2017 with microperforated diverticulitis. She is making good progress with resolution of her leukocytosis. She seemed to be tolerating her diet with bowel f unction. The pain seemed to be better. Today, she notes that her pain is significantly worse. At times, it hurts for her to breathe. The p ain is still only on the left hand side. Labs obtained earlier today reveal that her white blood mikel l count has jumped from 10.2 up to 19.5. PHYSICAL EXAMINATION: On examination, she is afebrile with pulse of 72 and blood pressure 187/78. H er abdomen is focally tender along the entire left side, much more than anticipated after 6 days of I V antibiotics. ASSESSMENT AND PLAN: Patient with continued/worsening left-sided abdominal pain. PLAN: Repeat CT scan. Further action will depend upon CT results. If there is an abscess, then it will clearly need to be drained. If there is worsening of infection, she may require laparotomy. Jacqui vargas understands the potential consequences if she requires surgery at this time.
--- NOTE | 2017-10-24 17:20 | CT ---
CT ABDOMEN AND PELVIS WITH ORAL AND IV CONTRAST: 10/24/17 HISTORY: Perforated diverticulitis. Abdominal pain. Nausea and vomiting, pain is worse on the left side. FINDINGS: Comparison is made with the exam of 10/19/17. Tiny pericardial effusions are again seen. There are small bilateral pleural effusions with adjacent atelectatic changes. The patient is post cholecystectomy, hysterectomy and appendectomy. There are ca lcified granulomas in the liver and spleen. The pancreas, adrenal glands and kidneys are normal. There is colonic diverticulosis with colonic inflammatory changes in the left lower quadrant and free air adjacent to it. There is a significant amount of free air in the abdomen with significant interv al increase since the previous study. There is a small amount of free fluid in the pelvis. No abnorma lly loculated fluid collection is seen. The urinary bladder is grossly unremarkable. There are vascular calcifications without evidence of an eurysmal dilatation of the abdominal aorta. There are degenerative changes of the spine. Multiple lev els of vertebroplasty are again seen. Fecal material and fluid in the cecum, ascending and the proxim al transverse colon. The cecum measures 7.6 cm. IMPRESSION: Colonic diverticulosis with perforated diverticulitis in the left lower quadrant. Free intraperitonea l air has increased significantly since the previous study of 10/19/17. The findings were discussed over the telephone with Dr. Gary Alfonso at 5:01 p.m. POS: [facility]
--- NOTE | 2017-10-24 17:40 | PDOC.PN ---
- Subjective Encounter Start Date: 10/24/17 Encounter Start Time: 17:30 Subjective: f/u for colonic perforation with diverticulitis, sepsis tx with Zosyn. -: c/o increased abd pain and po intake of liquid diet. - Objective Resuscitation Status: Resuscitation Status DNR:Do Not Resuscitate MAR Reviewed: Yes Vital Signs & Weight: Vital Signs (12 hours) Temp Pulse Resp BP BP Pulse Ox 10/24/17 14:26 72 149/65 H 10/24/17 14:24 149/65 H 10/24/17 12:20 187/78 H 10/24/17 11:45 98.1 F 72 20 187/78 H 92 L 10/24/17 08:32 69 157/63 H 10/24/17 08:31 98.7 F 70 16 94 L 10/24/17 08:30 157/63 H 10/24/17 07:52 98.7 F 70 16 157/63 H 94 L I&O: 10/23/17 10/24/17 10/25/17 06:59 06:59 06:59 Intake Total 764 2940 Output Total 1450 Balance -686 2940 Result Diagrams: 10/24/17 04:49 10/24/17 04:49 Radiology Reviewed by me: Yes (CT abd/pel - increased free air worse than prior exam) Phys Exam - Physical Examination mod distress HEENT: PERRLA, sclera anicteric, oral pharynx no lesions Neck: no nodes, no JVD, supple, full ROM Respiratory: no wheezing, no rales, no rhonchi, clear to auscultation bilateral Cardiovascular: RRR, no significant murmur, no rub, gallop + TTP diffusely, mod rebound, + distention Gastrointestinal: positive bowel sounds Musculoskeletal: no edema, pulses present Neurological: non-focal, normal sensation, moves all 4 limbs Psychiatric: normal affect, A&O x 3 Skin: no rash, normal turgor, cap refill <2 seconds Dx/Plan (1) Perforated sigmoid colon Code(s): K63.1 - PERFORATION OF INTESTINE (NONTRAUMATIC) Status: Acute Comment: Initial mgmt with conservative measures, likely will need laparotomy with colectomy (2) Sepsis Code(s): A41.9 - SEPSIS, UNSPECIFIED ORGANISM Status: Acute Qualifiers: Sepsis type: sepsis due to unspecified organism Qualified Code(s): A41.9 - Sepsis, unspecified organism Comment: Secondary to perforated diverticula, continue Zosyn (3) Acute diverticulitis of intestine Code(s): K57.92 - DVTRCLI OF INTEST, PART UNSP, W/O PERF OR ABSCESS W/O BLEED Status: Chronic Comment: recurrent, complicated, with microabscess/perforation , see above (4) Hypertension Code(s): I10 - ESSENTIAL (PRIMARY) HYPERTENSION Status: Chronic Qualifiers: Hypertension type: essential hypertension Qualified Code(s): I10 - Essential (primary) hypertension Comment: Labile, continue home BP regimen, Clonidine and Hydralazine PRN (5) Hyponatremia Code(s): E87.1 - HYPO-OSMOLALITY AND HYPONATREMIA Status: Acute Comment: stable continue to monitor, Na+ in am (6) Hypokalemia Code(s): E87.6 - HYPOKALEMIA Status: Resolved Comment: KCL 20meq BID, K+ level in am - Plan continue antibiotics, PT/OT, clinical social work therapist, DVT proph w/SCDs Plan for laparotomy today -: NPO -: NS @ 120ml/h -: Pain control -: Continue Zosyn 3.375gm IV q6h * AM lab: BMP, CBC
[2017-10-24] MEDS ORDERED: Fentanyl 100 MCG/2 ML VIAL ONE ×4 (20:10→23:44)
[2017-10-24] MEDS ORDERED: Bupivacaine/Epinephrine 0.25% 30 ML VIAL ONE (20:14)
[2017-10-24] MEDS ORDERED: Sodium Chloride 0.9% 30 ML ONE (21:07)
[2017-10-24] MEDS ORDERED: Promethazine HCl 25 MG/ML VIAL SLOW IVP PRN (22:30)
[2017-10-24] MEDS ORDERED: Promethazine HCl 25 MG/ML VIAL IM PRN (22:30)
[2017-10-24] MEDS ORDERED: Ondansetron HCl/PF 4 MG/2 ML Vial IVP PRN (22:30)
--- NOTE | 2017-10-24 22:32 | PRG ---
DATE OF SERVICE: 10/24/2017 SUBJECTIVE: Ms. Carrera had worsening pain today, was rescanned and has worsening free air. Her white count 19,500. She and her nurse tell me she was going for a laparoscopy tonight. OBJECTIVE: VITAL SIGNS: Temperature is 98, blood pressure 107/78. LUNGS: Clear. HEART: Regular rate and rhythm. ABDOMEN: Tender left upper quadrant. LABORATORY DATA: White count 19.5, hemoglobin 12.8, platelet count 360. Sodium 133, potassium 3.4, BUN and creatinine are 8 and 0.62. ASSESSMENT: 1. Recurrent diverticulitis with a second episode of microperforation now clinically worsening. Agr ee with plan to go to the operating room. She is going to be poor healer and high risk for complicat ions in light of her chronic steroids. 2. Chronic steroid use secondary to underlying rheumatologic disease. RECOMMENDATIONS 1. Agree with plan for operative management. 2. Broad spectrum antibiotics. 3. Continue stress dose steroids.
--- NOTE | 2017-10-24 23:22 | RAD ---
PORTABLE CHEST: 10/24/17 HISTORY: Central line placement. Shortness of breath. COMPARISON: 10/19/17. Mild cardiomegaly. There is vascular congestion. Interstitial prominence suggests edema. A central li ne is in place via the left subclavian. The tip overlies the SVC. No pneumothorax identified. IMPRESSION: Cardiomegaly with mild vascular congestion. Central line appears in adequate position. POS: [facility]
[2017-10-25] MEDS: Bisacodyl 10 MG SUPP PR SCH ×3 (01:18→22:21)
[2017-10-25] MEDS: hydrALAZINE 25 MG TAB PO SCH ×4 (01:19→22:19)
[2017-10-25] MEDS: Piperacillin/Tazobactam 3.375 GM in Sodium Chloride 0.9% 100 ML IVPB SCH ×5 (01:19→22:21)
[2017-10-25] MEDS: Lisinopril 10 MG TAB PO SCH ×3 (01:19→22:18)
[2017-10-25] MEDS: cloNIDine 0.3 MG TAB PO SCH ×4 (01:19→22:18)
[2017-10-25] MEDS: Potassium Chloride 20 MEQ TAB PO SCH ×3 (01:20→22:20)
[2017-10-25] MEDS: Sodium Chloride 0.9% 1,000 ML IV SCH ×2 (01:20→23:51)
[2017-10-25] MEDS: Propranolol 60 MG TAB PO SCH ×4 (01:20→23:26)
[2017-10-25 08:51] LABS: ALT (SGPT) 26 U/L (8-55); AST (SGOT) 12 U/L (5-34); Albumin 2.8 g/dL (3.4-4.8); Alkaline Phosphatase 63 U/L (40-150); Anion Gap 11 mmol/L (10-20); BUN (Urea Nitrogen) 5 mg/dL (9.8-20.1); Bilirubin, Total 0.7 mg/dL (0.2-1.2); Calc. Creatinine Clearance 85 mL/min (70-130); Calcium 8.2 mg/dL (7.8-10.44); Carbon Dioxide 27 mmol/L (23-31); Chloride 98 mmol/L (98-107); Estimated GFR-MDRD Greater than 90; Globulin 2.5 g/dL (2.4-3.5); Glucose 97 mg/dL (83-110); Protein, Total 5.3 g/dL (6.0-8.3); Sodium 133 mmol/L (136-145)
[2017-10-25 09:00] LABS: Potassium 2.8 mmol/L (3.5-5.1)
[2017-10-25] MEDS: NIFEdipine XL 60 MG TAB PO SCH (09:08)
[2017-10-25] MEDS: Aspirin 81 mg Enteric Coated Tablet PO SCH (09:08)
[2017-10-25] MEDS: Saccharomyces boulardii 250 MG CAP PO SCH (09:08)
[2017-10-25] MEDS: Folic Acid 1 MG TAB PO SCH (09:09)
[2017-10-25] MEDS: Multivitamin W/ Minerals 1 TAB PO SCH (09:09)
[2017-10-25] MEDS: Thyroid 60 MG TAB PO SCH (09:09)
[2017-10-25] MEDS: predniSONE 5 MG TAB PO SCH (09:09)
[2017-10-25] MEDS: Furosemide 40 MG TAB PO SCH (09:10)
[2017-10-25] MEDS: HYDROcodone/Acetaminophen 5/325 mg Tablet PO PRN ×2 (09:10→15:56)
[2017-10-25] MEDS: Polyethylene Glycol 3350 17 GM Packet PO SCH (09:11)
[2017-10-25 09:33] LABS: Band 5 % (5-11); Eosinophils 5 % (0-10); Hemoglobin 12.1 g/dL (12.0-16.0); Lymphocytes 7 % (21-51); MDiff Complete? YES; Mean Corpuscular Hemoglobin 28.5 pg (27.0-31.0); Mean Corpuscular Volume 86.4 fl (81.0-99.0); Mean Platelet Volume 5.6 fL (7.4-10.4); Monocytes 1 % (0-10); Neutrophil 80 % (42-75); Platelet Count 265 thou/uL (130-400); RBC Distribution Width 13.6 % (11.5-14.5); RBC Morphology Normal; Reactive Lymphocytes 2 % (0-10); Red Blood Cell (RBC) Count 4.25 mill/uL (4.20-5.40)
[2017-10-25] MEDS: D5 0.9% NS w/ 20 mEq KCl 1,000 ML IV SCH (14:36)
--- NOTE | 2017-10-25 18:54 | PDOC.PN ---
- Subjective Encounter Start Date: 10/25/17 Encounter Start Time: 17:45 Subjective: f/u for perforated diverticulitis s/p laparoscopy with washout and -: ALESSANDRA drain placement x 2 10/25/17. Some abd pain on left lower -: quadrant. No N/V. Continues on Zosyn. - Objective Resuscitation Status: Resuscitation Status DNR:Do Not Resuscitate MAR Reviewed: Yes Vital Signs & Weight: Vital Signs (12 hours) Temp Pulse Resp BP BP Pulse Ox 10/25/17 15:55 98.2 F 77 16 169/69 H 94 L 10/25/17 14:37 77 169/69 H 10/25/17 11:57 98.2 F 82 18 121/50 L 92 L 10/25/17 09:09 148/67 H 10/25/17 09:08 83 148/67 H 10/25/17 09:00 83 18 148/67 H 10/25/17 08:30 100 F H 83 18 92 L 10/25/17 08:00 100.0 F H 83 18 148/67 H 92 L I&O: 10/24/17 10/25/17 10/26/17 06:59 06:59 06:59 Intake Total 2940 2120 1987.5 Output Total 2660 2650 Balance 2940 -540 -662.5 Result Diagrams: 10/25/17 08:26 10/25/17 08:26 Radiology Reviewed by me: Yes (PCXR - cardiomegaly, no acute process) Phys Exam - Physical Examination Constitutional: NAD HEENT: PERRLA, sclera anicteric, oral pharynx no lesions Neck: no nodes, no JVD, supple, full ROM Respiratory: no wheezing, no rales, no rhonchi, clear to auscultation bilateral S1, S2 Cardiovascular: RRR, no significant murmur, no rub, gallop TTP in TERRI/LLQ, diminished bowel sounds, ALESSANDRA drains in place Gastrointestinal: soft Musculoskeletal: no edema, pulses present Neurological: normal sensation, moves all 4 limbs Psychiatric: normal affect, A&O x 3 Skin: no rash, normal turgor, cap refill <2 seconds Dx/Plan (1) Perforated sigmoid colon Code(s): K63.1 - PERFORATION OF INTESTINE (NONTRAUMATIC) Status: Acute Comment: Initial mgmt with conservative measures, likely will need laparotomy with colectomy, s/p laparoscopy with washout and ALESSANDRA drain placement, continue Zosyn (2) Sepsis Code(s): A41.9 - SEPSIS, UNSPECIFIED ORGANISM Status: Acute Qualifiers: Sepsis type: sepsis due to unspecified organism Qualified Code(s): A41.9 - Sepsis, unspecified organism Comment: Secondary to perforated diverticula, continue Zosyn (3) Acute diverticulitis of intestine Code(s): K57.92 - DVTRCLI OF INTEST, PART UNSP, W/O PERF OR ABSCESS W/O BLEED Status: Chronic Comment: recurrent, complicated, with microabscess/perforation , see above (4) Hypertension Code(s): I10 - ESSENTIAL (PRIMARY) HYPERTENSION Status: Chronic Qualifiers: Hypertension type: essential hypertension Qualified Code(s): I10 - Essential (primary) hypertension Comment: Labile, continue home BP regimen, Clonidine and Hydralazine PRN (5) Hyponatremia Code(s): E87.1 - HYPO-OSMOLALITY AND HYPONATREMIA Status: Acute Comment: stable continue to monitor, Na+ in am (6) Hypokalemia Code(s): E87.6 - HYPOKALEMIA Status: Resolved Comment: KCL 20meq BID, K+ level in am - Plan continue antibiotics, PT/OT, clinical social work therapist, incentive spirometry, out of bed/ ambulate, DVT proph w/SCDs Stable overall -: Continue Zosyn 3.375gm IV q6h -: Await final peritoneal cx -: Pain control as clinically indicated -: KCL replacement * AM lab: BMP, CBC
[2017-10-26] MEDS: HYDROcodone/Acetaminophen 5/325 mg Tablet PO PRN (02:34)
[2017-10-26] MEDS: Piperacillin/Tazobactam 3.375 GM in Sodium Chloride 0.9% 100 ML IVPB SCH ×4 (04:25→22:07)
[2017-10-26] MEDS: D5 0.9% NS w/ 20 mEq KCl 1,000 ML IV SCH (04:25)
[2017-10-26] MEDS: Propranolol 60 MG TAB PO SCH ×3 (05:32→22:05)
[2017-10-26] MEDS: Bisacodyl 10 MG SUPP PR SCH ×3 (05:34→22:54)
[2017-10-26 06:44] LABS: Anion Gap 11 mmol/L (10-20); BUN (Urea Nitrogen) 7 mg/dL (9.8-20.1); Calc. Creatinine Clearance 69 mL/min (70-130); Calcium 8.4 mg/dL (7.8-10.44); Carbon Dioxide 30 mmol/L (23-31); Chloride 97 mmol/L (98-107); Estimated GFR-MDRD 83; Glucose 157 mg/dL (83-110); Sodium 135 mmol/L (136-145)
[2017-10-26 07:36] LABS: Band 2 % (5-11); Eosinophils 5 % (0-10); Hemoglobin 10.8 g/dL (12.0-16.0); Lymphocytes 15 % (21-51); MDiff Complete? YES; Mean Corpuscular HGB CONC 32.6 g/dL (32.0-36.0); Mean Corpuscular Hemoglobin 28.7 pg (27.0-31.0); Mean Corpuscular Volume 88.3 fl (81.0-99.0); Mean Platelet Volume 6.7 fL (7.4-10.4); Monocytes 5 % (0-10); Myelocyte 1 % (0-0); Neutrophil 72 % (42-75); PLT Morphology Comment Appears Adequate; Platelet Count 310 thou/uL (130-400); RBC Distribution Width 13.6 % (11.5-14.5); RBC Morphology Normal; Red Blood Cell (RBC) Count 3.77 mill/uL (4.20-5.40); White Blood Cell (WBC) Count 14.1 thou/uL (4.8-10.8)
[2017-10-26] MEDS: Thyroid 60 MG TAB PO SCH (08:17)
[2017-10-26] MEDS: Polyethylene Glycol 3350 17 GM Packet PO SCH (08:17)
[2017-10-26] MEDS: hydrALAZINE 25 MG TAB PO SCH ×3 (08:18→22:07)
[2017-10-26] MEDS: Aspirin 81 mg Enteric Coated Tablet PO SCH (08:18)
[2017-10-26] MEDS: Folic Acid 1 MG TAB PO SCH (08:18)
[2017-10-26] MEDS: cloNIDine 0.3 MG TAB PO SCH ×3 (08:19→22:05)
[2017-10-26] MEDS: Saccharomyces boulardii 250 MG CAP PO SCH (08:19)
[2017-10-26] MEDS: Furosemide 40 MG TAB PO SCH (08:19)
[2017-10-26] MEDS: Potassium Chloride 20 MEQ TAB PO SCH ×2 (08:19→22:07)
[2017-10-26] MEDS: predniSONE 5 MG TAB PO SCH (08:20)
[2017-10-26] MEDS: NIFEdipine XL 60 MG TAB PO SCH (08:20)
[2017-10-26] MEDS: Lisinopril 10 MG TAB PO SCH ×2 (08:20→22:08)
[2017-10-26] MEDS: Multivitamin W/ Minerals 1 TAB PO SCH (08:20)
--- NOTE | 2017-10-26 08:48 | OP ---
DATE OF PROCEDURE: 10/24/2017 PREOPERATIVE DIAGNOSES: Perforated diverticulitis with pneumoperitoneum and worsening abdominal pain . POSTOPERATIVE DIAGNOSES: Perforated diverticulitis with pneumoperitoneum and worsening abdominal chrissy n with pericolonic fluid collection, obvious diverticulitis. OPERATION PERFORMED: Exploratory laparoscopy with peritoneal cavity irrigation, drainage of intra-ab dominal abscess, placement of two Zain-Bautista drain. SURGEON: Gary Alfonso M.D. FL[employer] CREW ORDNANCEMAN: Wilmer Matt, medical student. ANESTHESIA: General endotracheal. INDICATIONS: The patient is a 76-year-old white female. 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 She presented several days ago with micro perforated diverticulitis. Her condition w as not improving and I repeated her CT scan showing an increased amount of free air within the abdome n. She is taken to the operating room at this time for laparoscopic washout and exploration. OPERATIVE PROCEDURE IN DETAIL: Informed consent was obtained. The patient was taken to the operatin g room where general endotracheal anesthesia obtained with the patient in supine position. Abdomen w as prepped with ChloraPrep, draped in sterile fashion. Local anesthetic was infiltrated and 5 mm rig ht periumbilical incision was created through which a Veress needle was passed via the peritoneal cav ity and pneumoperitoneum established using carbon dioxide up to a pressure of 15 mmHg. A 5 mm trocar port was passed through this same incision. Laparoscopic camera was passed through this port. Unde r direct vision, we placed two additional 5 mm ports, one in the right lower abdomen, one in the righ t upper abdomen. Attention was turned to the left abdomen. There was obvious indurated inflammatory process between t he left colon and the abdominal wall. I mobilized omentum away from this and there was a fluid colle ction. It was significantly purulent. This was aspirated and submitted for culture. The omentum wa s essentially free throughout the rest of the omentum. Examination of the rest of the abdomen reveal ed no evidence of any purulence. No significant inflammatory change and no free fluid. I examined t he left colon to see if I could visualize any area of perforation. The area of induration was obviou s, but no location of perforation was visualized. I examined the pelvis and there was also no eviden ce of abscess at that location. I then irrigated the abdomen with about 6 liters of saline and aspir ated all irrigant. I placed two drains coming out of the right side of the abdomen. The upper drain went across the area of concern and extend down the pelvis. The lower drain went across the area of concern and extend into the upper abdomen. These were secured with 3-0 nylon sutures. All ports an d instruments removed under direct vision. Pneumoperitoneum was carefully evacuated. Additional loc al anesthetic was infiltrated to skin incision. There were 2 port sites that were closed with 4-0 Mo nocryl subcuticular suture and Dermabond was placed externally. Gauze dressings were placed on the t wo drain sites. There were no complications. Blood loss was essentially none. The patient tolerate d the procedure well and was taken to recovery in stable condition.
[2017-10-26 10:06] LABS: #Eosinphils 0.6 thou/uL (0.0-0.7); #Lymphocytes 1.7 thou/uL (1.20-3.40); #Monocytes 0.6 thou/uL (0.11-0.59); #Neutrophils 10.6 thou/uL (1.40-6.50); %Basophils 0.2 % (0.0-1.0); %Eosinophils 4.1 % (0.0-10.0); %Lymphocytes 12.5 % (21.0-51.0); %Monocytes 4.7 % (0.0-10.0); %Neutrophils 78.5 % (42.0-75.0); Hemoglobin 9.9 g/dL (12.0-16.0); Mean Corpuscular HGB CONC 33.5 g/dL (32.0-36.0); Mean Corpuscular Hemoglobin 29.5 pg (27.0-31.0); Mean Corpuscular Volume 88.1 fl (81.0-99.0); Mean Platelet Volume 6.8 fL (7.4-10.4); Platelet Count 262 thou/uL (130-400); RBC Distribution Width 13.5 % (11.5-14.5); Red Blood Cell (RBC) Count 3.36 mill/uL (4.20-5.40); White Blood Cell (WBC) Count 13.5 thou/uL (4.8-10.8)
[2017-10-26 10:40] LABS: Anion Gap 13 mmol/L (10-20); BUN (Urea Nitrogen) 7 mg/dL (9.8-20.1); Calc. Creatinine Clearance 72 mL/min (70-130); Calcium 7.9 mg/dL (7.8-10.44); Carbon Dioxide 26 mmol/L (23-31); Chloride 99 mmol/L (98-107); Estimated GFR-MDRD 87; Glucose 192 mg/dL (83-110); Magnesium 1.9 mg/dL (1.6-2.6); Phosphorus 1.7 mg/dL (2.3-4.7); Potassium 3.9 mmol/L (3.5-5.1); Sodium 134 mmol/L (136-145)
[2017-10-26] MEDS: SODIUM CHLORIDE IV SCH (13:41)
[2017-10-26] MEDS: [UNRECOGNIZED DRUG - OTHER] IV SCH (13:41)
[2017-10-26] MEDS: MULTIVITAMINS IV SCH (13:41)
[2017-10-26] MEDS: POTASSIUM CHLORIDE IV SCH (13:41)
--- NOTE | 2017-10-26 19:24 | PDOC.PN ---
- Subjective Encounter Start Date: 10/26/17 Encounter Start Time: 18:20 Subjective: f/u for perforated diverticulitis s/p laparoscopy with washout and ALESSANDRA drain -: placement x 2. Continues on Zosyn and feeling better overall. Started on -: TPN and taking clear liquids. Ambulating in room. - Objective Resuscitation Status: Resuscitation Status DNR:Do Not Resuscitate MAR Reviewed: Yes Vital Signs & Weight: Vital Signs (12 hours) Temp Pulse Resp BP BP BP BP 10/26/17 15:44 97.7 F 71 18 126/61 10/26/17 14:38 76 134/65 10/26/17 11:59 98.1 F 76 18 149/63 H 10/26/17 11:00 149/63 H 10/26/17 08:20 72 134/65 10/26/17 08:19 134/65 10/26/17 08:18 72 134/65 10/26/17 07:46 97.7 F 72 18 10/26/17 07:36 97.7 F 72 18 134/65 Pulse Ox Pulse Ox 10/26/17 15:44 94 L 10/26/17 14:38 10/26/17 11:59 94 L 10/26/17 11:00 94 L 10/26/17 08:20 10/26/17 08:19 10/26/17 08:18 10/26/17 07:46 94 L 10/26/17 07:36 94 L I&O: 10/25/17 10/26/17 10/27/17 06:59 06:59 06:59 Intake Total 2120 3367.5 888 Output Total 2660 3045 Balance -540 322.5 888 Result Diagrams: 10/26/17 09:51 10/26/17 09:51 Additional Labs: Accuchecks 10/26/17 10/26/17 18:49 13:43 POC Glucose 240 H 214 H Microbiology 10/24/17 21:40 Peritoneal Fluid Culture - Fluid Body Fluid Culture - Preliminary 10/24/17 21:40 Peritoneal Fluid Culture - Fluid Gram Negative Scott Alpha-Hemolytic Streptococcus Presumptive Noris albicans Laboratory Tests 10/24/17 10/24/17 10/25/17 04:49 04:49 08:26 WBC 19.5 H Neutrophils % 77.6 H Neutrophils % (Manual) 80 H Sodium 133 L Potassium 3.4 L Phys Exam - Physical Examination Constitutional: NAD HEENT: PERRLA, sclera anicteric, oral pharynx no lesions Neck: no nodes, no JVD, supple, full ROM Respiratory: no wheezing, no rales, no rhonchi, clear to auscultation bilateral S1, S2 Cardiovascular: RRR, no significant murmur, no rub, gallop +TTP in TERRI/LLQ ALESSANDRA drains x 2 Gastrointestinal: soft, positive bowel sounds Musculoskeletal: no edema, pulses present Neurological: non-focal, normal sensation, moves all 4 limbs Psychiatric: normal affect, A&O x 3 Skin: normal turgor, cap refill <2 seconds Dx/Plan (1) Perforated sigmoid colon Code(s): K63.1 - PERFORATION OF INTESTINE (NONTRAUMATIC) Status: Acute Comment: s/p laparoscopy with washout and ALESSANDRA drain placement POD #1, continue Zosyn, pain control (2) Sepsis Code(s): A41.9 - SEPSIS, UNSPECIFIED ORGANISM Status: Acute Qualifiers: Sepsis type: sepsis due to unspecified organism Qualified Code(s): A41.9 - Sepsis, unspecified organism Comment: Secondary to perforated diverticula, continue Zosyn (3) Acute diverticulitis of intestine Code(s): K57.92 - DVTRCLI OF INTEST, PART UNSP, W/O PERF OR ABSCESS W/O BLEED Status: Chronic Comment: recurrent, complicated, with microabscess/perforation , see above (4) Hypertension Code(s): I10 - ESSENTIAL (PRIMARY) HYPERTENSION Status: Chronic Qualifiers: Hypertension type: essential hypertension Qualified Code(s): I10 - Essential (primary) hypertension Comment: Labile, continue home BP regimen, Clonidine and Hydralazine PRN (5) Hyponatremia Code(s): E87.1 - HYPO-OSMOLALITY AND HYPONATREMIA Status: Acute Comment: stable continue to monitor, Na+ in am (6) Hypokalemia Code(s): E87.6 - HYPOKALEMIA Status: Resolved Comment: KCL 20meq BID, K+ level in am (7) Hypophosphatemia Code(s): E83.39 - OTHER DISORDERS OF PHOSPHORUS METABOLISM Status: Acute Comment: PO3 replacement, serial monitoring - Plan continue antibiotics, PT/OT, public health social worker, respiratory therapy, out of bed/ ambulate, DVT proph w/SCDs Stable overall -: Nutritional support with TPN -: clear liquids -: Continue KCL and PO3 supplementation -: OOB/ambulate * Code Status: DNR
[2017-10-26] MEDS: Lorazepam 2 MG/ML VIAL SLOW IVP PRN (22:29)
[2017-10-26] MEDS ORDERED: Dextrose 50% Abboject 50 ML SYRINGE IVP PRN (23:51)
[2017-10-26] MEDS ORDERED: Dextrose 5% in Water 1,000 ML IV PRN (23:51)
[2017-10-27] MEDS ORDERED: Insulin Regular 300 UNITS/3 ML VIAL ONE (00:29)
[2017-10-27] MEDS: Piperacillin/Tazobactam 3.375 GM in Sodium Chloride 0.9% 100 ML IVPB SCH ×4 (03:50→20:22)
[2017-10-27] MEDS: HumaLOG 300 UNITS/3 ML VIAL SC PRN ×3 (04:02→18:06)
[2017-10-27] MEDS: Propranolol 60 MG TAB PO SCH ×3 (06:10→21:15)
--- NOTE | 2017-10-27 08:28 | PRG ---
DATE OF SERVICE: 10/26/2017 Arabella Carrera is status post washout with drainage to be placed. PHYSICAL EXAMINATION: VITAL SIGNS: Temperature is 98, pulse 76, respirations 16, blood pressure 120/50. GENERAL: Ms. Carrera says she feels much better than she did earlier today. ABDOMEN: Soft, nontender. Drain is in place. Drain tube 40 mL from the bottom and 55 from the top. Urine output is 300 mL. INs and OUTs 3367 and 3 045. LABORATORY STUDIES: White count 13.5, hemoglobin 9.9, platelet count 262. Sodium 134, potassium 3.9 , BUN and creatinine of 7 and 0.6. ASSESSMENT: perforation, continue drainage and antibiotic. Surgery per Dr. Alfonso.
[2017-10-27] MEDS: Polyethylene Glycol 3350 17 GM Packet PO SCH (08:54)
[2017-10-27] MEDS: predniSONE 5 MG TAB PO SCH (08:54)
[2017-10-27] MEDS: Lisinopril 10 MG TAB PO SCH ×2 (08:54→20:22)
[2017-10-27] MEDS: hydrALAZINE 25 MG TAB PO SCH ×3 (08:54→20:23)
[2017-10-27] MEDS: Thyroid 60 MG TAB PO SCH (08:54)
[2017-10-27] MEDS: NIFEdipine XL 60 MG TAB PO SCH (08:55)
[2017-10-27] MEDS: Folic Acid 1 MG TAB PO SCH (08:55)
[2017-10-27] MEDS: Aspirin 81 mg Enteric Coated Tablet PO SCH (08:55)
[2017-10-27] MEDS: Potassium Chloride 20 MEQ TAB PO SCH ×2 (08:55→20:23)
[2017-10-27] MEDS: Furosemide 40 MG TAB PO SCH (08:55)
[2017-10-27] MEDS: Saccharomyces boulardii 250 MG CAP PO SCH (08:55)
[2017-10-27] MEDS: cloNIDine 0.3 MG TAB PO SCH ×3 (08:55→20:23)
[2017-10-27] MEDS: Bisacodyl 10 MG SUPP PR SCH ×2 (08:56→20:21)
[2017-10-27] MEDS: HYDROcodone/Acetaminophen 5/325 mg Tablet PO PRN ×2 (10:14→15:29)
[2017-10-27] MEDS: Mesalamine [Asacol Hd] 800 MG PO SCH ×3 (10:56→15:56)
[2017-10-27] MEDS ORDERED: MESALAMINE 1.2 GM PO SCH (11:00)
[2017-10-27] MEDS: POTASSIUM CHLORIDE IV SCH (15:56)
[2017-10-27] MEDS: MULTIVITAMINS IV SCH ×2 (15:56→16:05)
[2017-10-27] MEDS: [UNRECOGNIZED DRUG - OTHER] IV SCH (15:56)
[2017-10-27] MEDS: SODIUM CHLORIDE IV SCH ×2 (15:56→16:05)
[2017-10-27] MEDS: MULTITRACE IV SCH (16:05)
[2017-10-27] MEDS: [UNRECOGNIZED DRUG - OTHER] IV SCH (16:05)
--- NOTE | 2017-10-27 18:39 | PDOC.PN ---
- Subjective Encounter Start Date: 10/27/17 Encounter Start Time: 17:20 Subjective: f/u for perforated diverticulitis s/p laparoscopy with washout and ALESSANDRA drain -: placement x 2 POD #2. Still with abd pain in TERRI/LLQ. Pain controlled with -: [place]. - Objective Resuscitation Status: Resuscitation Status DNR:Do Not Resuscitate MAR Reviewed: Yes Vital Signs & Weight: Vital Signs (12 hours) Temp Pulse Resp BP BP BP Pulse Ox 10/27/17 15:40 98.5 F 86 16 148/63 H 94 L 10/27/17 15:27 137/65 10/27/17 15:20 88 137/65 10/27/17 11:54 99.1 F 88 18 137/65 94 L 10/27/17 08:55 87 145/67 H 10/27/17 08:54 87 145/67 H 10/27/17 08:04 98.9 F 87 14 145/67 H 92 L 10/27/17 08:00 98.6 F 82 14 92 L Weight Admit Weight 138 lb 4.8 oz Weight 138 lb 4.8 oz I&O: 10/26/17 10/27/17 10/28/17 06:59 06:59 06:59 Intake Total 3367.5 2218 1176 Output Total 3045 980 3235 Balance 322.5 1238 -1826 Result Diagrams: 10/26/17 09:51 10/26/17 09:51 Additional Labs: Accuchecks 10/27/17 10/27/17 10/27/17 18:04 11:45 05:27 POC Glucose 261 H 241 H 141 H 10/26/17 10/26/17 23:46 18:49 POC Glucose 234 H 240 H Microbiology 10/24/17 21:40 Peritoneal Fluid Culture - Fluid Body Fluid Culture - Preliminary 10/24/17 21:40 Peritoneal Fluid Culture - Fluid Gram Negative Scott Alpha-Hemolytic Streptococcus Presumptive Noris albicans Laboratory Tests 10/24/17 10/24/17 10/25/17 04:49 04:49 08:26 WBC 19.5 H Neutrophils % 77.6 H Neutrophils % (Manual) 80 H Sodium 133 L Potassium 3.4 L Phys Exam - Physical Examination Constitutional: NAD alert, responsive HEENT: PERRLA, sclera anicteric, oral pharynx no lesions Neck: no nodes, no JVD, supple, full ROM Respiratory: no wheezing, no rales, no rhonchi, clear to auscultation bilateral S1, S2 Cardiovascular: RRR, no significant murmur, no rub, gallop + TTP in TERRI/LLQ, ALESSANDRA drains x [address] Gastrointestinal: soft, positive bowel sounds Musculoskeletal: no edema, pulses present Neurological: normal sensation, moves all 4 limbs Psychiatric: normal affect, A&O x 3 Skin: no rash, normal turgor, cap refill <2 seconds Dx/Plan (1) Perforated sigmoid colon Code(s): K63.1 - PERFORATION OF INTESTINE (NONTRAUMATIC) Status: Acute Comment: s/p laparoscopy with washout and ALESSANDRA drain placement POD #2, continue Zosyn, pain control (2) Sepsis Code(s): A41.9 - SEPSIS, UNSPECIFIED ORGANISM Status: Acute Qualifiers: Sepsis type: sepsis due to unspecified organism Qualified Code(s): A41.9 - Sepsis, unspecified organism Comment: Secondary to perforated diverticula, continue Zosyn (3) Acute diverticulitis of intestine Code(s): K57.92 - DVTRCLI OF INTEST, PART UNSP, W/O PERF OR ABSCESS W/O BLEED Status: Chronic Comment: recurrent, complicated, with microabscess/perforation , see above (4) Hypertension Code(s): I10 - ESSENTIAL (PRIMARY) HYPERTENSION Status: Chronic Qualifiers: Hypertension type: essential hypertension Qualified Code(s): I10 - Essential (primary) hypertension Comment: Labile, continue home BP regimen, Clonidine and Hydralazine PRN (5) Hyponatremia Code(s): E87.1 - HYPO-OSMOLALITY AND HYPONATREMIA Status: Acute Comment: stable continue to monitor, Na+ in am (6) Hypokalemia Code(s): E87.6 - HYPOKALEMIA Status: Resolved Comment: KCL 20meq BID, K+ level in am (7) Hypophosphatemia Code(s): E83.39 - OTHER DISORDERS OF PHOSPHORUS METABOLISM Status: Acute Comment: PO3 replacement, serial monitoring - Plan continue antibiotics, PT/OT, social services director, out of bed/ambulate, DVT proph w/ SCDs Stable overall -: Continue TPN for nutritional support -: Pain control as clinically indicated -: OOB/ambulate -: Continue Zosyn * AM lab: BMP, CBC, PO3
--- NOTE | 2017-10-27 19:57 | PRG ---
DATE OF SERVICE: 10/27/2017 SUBJECTIVE: Ms. Carrera notes she has pain today. PHYSICAL EXAMINATION: VITAL SIGNS: Temperature 99, pulse 88, blood pressure 137/65. ABDOMEN: Soft and nontender. Presently, she is having pain . LABORATORY DATA: None today. ASSESSMENT: 1. Diverticulitis perforation. Watch out for increased fever, white count and pain. She is on IV a ntibiotics and TPN presently. 2. History of chronic steroid use with some adrenal insufficiency, stable presently. RECOMMENDATIONS: Continue present antibiotics. We will defer to General Surgery in terms of timing of surgery. I am going to be out for the next week. Dr. Luis Simmons will be available in covering in my absence over the weekend. At this time, we will follow from a distance as management of divertic ulosis point going forward seems to be surgical.
[2017-10-27] MEDS: Lorazepam 2 MG/ML VIAL SLOW IVP PRN (21:15)
[2017-10-28] MEDS: HumaLOG 300 UNITS/3 ML VIAL SC PRN (00:29)
[2017-10-28] MEDS: Piperacillin/Tazobactam 3.375 GM in Sodium Chloride 0.9% 100 ML IVPB SCH ×4 (05:11→21:23)
[2017-10-28] MEDS: HYDROcodone/Acetaminophen 5/325 mg Tablet PO PRN ×2 (05:16→13:54)
[2017-10-28] MEDS: Propranolol 60 MG TAB PO SCH ×3 (05:36→21:22)
[2017-10-28 06:15] LABS: #Basophils 0.1 thou/uL (0.0-0.2); #Eosinphils 0.5 thou/uL (0.0-0.7); #Lymphocytes 2.2 thou/uL (1.20-3.40); #Monocytes 0.9 thou/uL (0.11-0.59); #Neutrophils 9.7 thou/uL (1.40-6.50); %Basophils 0.5 % (0.0-1.0); %Eosinophils 3.8 % (0.0-10.0); %Lymphocytes 16.5 % (21.0-51.0); %Monocytes 6.9 % (0.0-10.0); %Neutrophils 72.3 % (42.0-75.0); Hemoglobin 10.7 g/dL (12.0-16.0); Mean Corpuscular HGB CONC 34.1 g/dL (32.0-36.0); Mean Corpuscular Hemoglobin 29.3 pg (27.0-31.0); Platelet Count 346 thou/uL (130-400); RBC Distribution Width 13.4 % (11.5-14.5); Red Blood Cell (RBC) Count 3.65 mill/uL (4.20-5.40); White Blood Cell (WBC) Count 13.5 thou/uL (4.8-10.8)
[2017-10-28 06:28] LABS: Anion Gap 14 mmol/L (10-20); BUN (Urea Nitrogen) 25 mg/dL (9.8-20.1); Calc. Creatinine Clearance 75 mL/min (70-130); Calcium 8.9 mg/dL (7.8-10.44); Carbon Dioxide 28 mmol/L (23-31); Chloride 95 mmol/L (98-107); Estimated GFR-MDRD Greater than 90; Glucose 129 mg/dL (83-110); Phosphorus 4.1 mg/dL (2.3-4.7); Potassium 3.7 mmol/L (3.5-5.1); Sodium 133 mmol/L (136-145)
[2017-10-28] MEDS: predniSONE 5 MG TAB PO SCH (08:19)
[2017-10-28] MEDS: Polyethylene Glycol 3350 17 GM Packet PO SCH (08:20)
[2017-10-28] MEDS: Aspirin 81 mg Enteric Coated Tablet PO SCH (08:20)
[2017-10-28] MEDS: Bisacodyl 10 MG SUPP PR SCH ×2 (08:20→21:36)
[2017-10-28] MEDS: Folic Acid 1 MG TAB PO SCH (08:21)
[2017-10-28] MEDS: Furosemide 40 MG TAB PO SCH (08:22)
[2017-10-28] MEDS: hydrALAZINE 25 MG TAB PO SCH ×3 (08:26→21:21)
[2017-10-28] MEDS: cloNIDine 0.3 MG TAB PO SCH ×3 (08:27→21:22)
[2017-10-28] MEDS: NIFEdipine XL 60 MG TAB PO SCH (08:28)
[2017-10-28] MEDS: Lisinopril 10 MG TAB PO SCH ×2 (08:28→21:22)
[2017-10-28] MEDS: Thyroid 60 MG TAB PO SCH (08:30)
[2017-10-28] MEDS: MESALAMINE 1.2 GM PO SCH (08:30)
[2017-10-28] MEDS: Saccharomyces boulardii 250 MG CAP PO SCH (08:30)
[2017-10-28] MEDS: Potassium Chloride 20 MEQ TAB PO SCH ×2 (08:30→21:22)
[2017-10-28] MEDS ORDERED: predniSONE 5 MG TAB PO SCH ×2 (10:54→11:00)
[2017-10-28] MEDS: MULTIVITAMINS IV SCH (14:14)
[2017-10-28] MEDS: MULTITRACE IV SCH (14:14)
[2017-10-28] MEDS: [UNRECOGNIZED DRUG - OTHER] IV SCH (14:14)
[2017-10-28] MEDS: SODIUM CHLORIDE IV SCH (14:14)
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
[2017-10-28] MEDS: Lorazepam 2 MG/ML VIAL SLOW IVP PRN (21:29)
[2017-10-29] MEDS: HumaLOG 300 UNITS/3 ML VIAL SC PRN (00:03)
[2017-10-29] MEDS: Piperacillin/Tazobactam 3.375 GM in Sodium Chloride 0.9% 100 ML IVPB SCH ×4 (03:24→20:55)
[2017-10-29] MEDS: Propranolol 60 MG TAB PO SCH ×3 (06:44→22:28)
[2017-10-29] MEDS: predniSONE 5 MG TAB PO SCH (08:48)
[2017-10-29] MEDS: Polyethylene Glycol 3350 17 GM Packet PO SCH (09:22)
[2017-10-29] MEDS: hydrALAZINE 25 MG TAB PO SCH ×3 (09:22→20:53)
[2017-10-29] MEDS: Thyroid 60 MG TAB PO SCH (09:22)
[2017-10-29] MEDS: Saccharomyces boulardii 250 MG CAP PO SCH (09:22)
[2017-10-29] MEDS: cloNIDine 0.3 MG TAB PO SCH ×3 (09:24→20:53)
[2017-10-29] MEDS: NIFEdipine XL 60 MG TAB PO SCH (09:25)
[2017-10-29] MEDS: Aspirin 81 mg Enteric Coated Tablet PO SCH (09:25)
[2017-10-29] MEDS: Bisacodyl 10 MG SUPP PR SCH ×2 (09:26→20:52)
[2017-10-29] MEDS: Folic Acid 1 MG TAB PO SCH (09:26)
[2017-10-29] MEDS: Lisinopril 10 MG TAB PO SCH ×2 (09:29→20:54)
[2017-10-29] MEDS: Furosemide 40 MG TAB PO SCH (09:30)
[2017-10-29] MEDS: Potassium Chloride 20 MEQ TAB PO SCH ×2 (09:31→20:55)
[2017-10-29] MEDS: MESALAMINE 1.2 GM PO SCH (09:32)
[2017-10-29] MEDS: HYDROcodone/Acetaminophen 5/325 mg Tablet PO PRN (10:25)
[2017-10-29] MEDS: Ondansetron ODT 4 MG TAB PO PRN (14:15)
[2017-10-29] MEDS: MULTITRACE IV SCH (14:29)
[2017-10-29] MEDS: MULTIVITAMINS IV SCH (14:29)
[2017-10-29] MEDS: [UNRECOGNIZED DRUG - OTHER] IV SCH (14:29)
[2017-10-29] MEDS: SODIUM CHLORIDE IV SCH (14:29)
[2017-10-29] MEDS ORDERED: cloNIDine 0.3 MG TAB PO SCH (17:00)
[2017-10-29] MEDS ORDERED: Propranolol HCl 20 MG TAB PO SCH (17:00)
--- NOTE | 2017-10-29 17:02 | PDOC.EVN ---
Event Note - Event Note Event Note: called by RN for pt vomiting soon after taking clonidine, propranolol and hydralazine earlier. Current bp in the 180's systolic. Pt with nausea and increasing abd pain, as well as temp of 99.2. Requested that pt receive clonidine 0.3 mg and propranolol 60 mg now - one time doses ordered to manage bp. Also requested a call to Gen Surgery with regards to change in abdominal pain and nausea/vomiting, in addition to the change in temp. No questions or further needs at end of call.
--- NOTE | 2017-10-29 17:05 | PDOC.PN ---
- Subjective Encounter Start Date: 10/29/17 (f/u htn) Encounter Start Time: 13:30 Subjective: Pt c/o some nausea and increasing abd pain earlier in addition to diarrhea -: Was tolerating liquids and her medications. Denies any new sx. - Objective Resuscitation Status: Resuscitation Status DNR:Do Not Resuscitate Vital Signs & Weight: Vital Signs (12 hours) Temp Pulse Resp BP BP Pulse Ox 10/29/17 14:41 188/62 H 10/29/17 14:36 83 188/78 H 10/29/17 12:15 99.2 F 71 16 172/64 H 96 10/29/17 09:29 168/62 H 10/29/17 09:25 85 168/62 H 10/29/17 09:24 168/62 H 10/29/17 09:22 85 168/62 H 10/29/17 07:55 98.2 F 78 18 169/69 H 94 L 10/29/17 07:15 98.1 F 77 17 Weight Admit Weight 138 lb 4.8 oz Weight 138 lb 4.8 oz I&O: 10/28/17 10/29/17 10/30/17 06:59 06:59 06:59 Intake Total 2938.25 1697 Output Total 4603 1125 Balance -1664.75 572 Result Diagrams: 10/28/17 06:07 10/28/17 06:07 Additional Labs: Accuchecks 10/29/17 10/28/17 10/28/17 05:24 23:56 18:40 POC Glucose 148 H 263 H 217 H Phys Exam - Physical Examination Constitutional: NAD HEENT: moist MMs Neck: supple, full ROM Respiratory: no wheezing, no rales, no rhonchi, clear to auscultation bilateral Cardiovascular: RRR, no significant murmur Gastrointestinal: soft, positive bowel sounds mild ttp throughout Musculoskeletal: no edema, pulses present Neurological: non-focal, moves all 4 limbs Psychiatric: normal affect Skin: no rash Dx/Plan (1) Perforated sigmoid colon Code(s): K63.1 - PERFORATION OF INTESTINE (NONTRAUMATIC) Status: Acute (2) Sepsis Code(s): A41.9 - SEPSIS, UNSPECIFIED ORGANISM Status: Acute Qualifiers: Sepsis type: sepsis due to unspecified organism Qualified Code(s): A41.9 - Sepsis, unspecified organism Comment: Secondary to perforated diverticula, continue Zosyn (3) Acute diverticulitis of intestine Code(s): K57.92 - DVTRCLI OF INTEST, PART UNSP, W/O PERF OR ABSCESS W/O BLEED Status: Chronic Comment: recurrent, complicated, with microabscess/perforation , (4) Hyperlipidemia Code(s): E78.5 - HYPERLIPIDEMIA, UNSPECIFIED Status: Chronic Qualifiers: Hyperlipidemia type: unspecified Qualified Code(s): E78.5 - Hyperlipidemia , unspecified (5) Hypertension Code(s): I10 - ESSENTIAL (PRIMARY) HYPERTENSION Status: Chronic Qualifiers: Hypertension type: essential hypertension Qualified Code(s): I10 - Essential (primary) hypertension Comment: Labile, continue home BP regimen, Clonidine and Hydralazine PRN (6) Hypothyroidism Code(s): E03.9 - HYPOTHYROIDISM, UNSPECIFIED Status: Chronic Qualifiers: Hypothyroidism type: acquired Qualified Code(s): E03.9 - Hypothyroidism, unspecified (7) Sjogren's syndrome Code(s): M35.00 - SICCA SYNDROME, UNSPECIFIED Status: Chronic Qualifiers: Sjogren's organ involvement: unspecified organ involvement Qualified Code(s ): M35.00 - Sicca syndrome, unspecified - Plan * Reviewed the following with patient and her son: * pt is steroid dependent for autoimmune disease - 15 mg prednisone daily. they are concerned that with prior hospitalizations and current that the dosing either changes or it is not ordered for the patient. Discussed with them documenting this. * Pt is on multiple meds for blood pressure - will continue these at current dosing. She is followed for htn by /Cardiology * Gen Surgery following the perforation, has current ALESSANDRA drains in place and is POD#4 on zosyn * * dvt prophy - SCDs * gi prophy - on protonix * code status - DNR * * reviewed the plan of care - no changes made by me today - with patient and son. Pt remains at high risk in current condition. No questions or further needs at end of eval.
[2017-10-29] MEDS: hydrALAZINE 20 MG/ML VIAL SLOW IVP PRN (17:41)
[2017-10-29] MEDS: Lorazepam 2 MG/ML VIAL SLOW IVP PRN (21:02)
[2017-10-29] MEDS: Calcium Carbonate 500 MG ChewTAB PO PRN (22:37)
[2017-10-30] MEDS: Mag-Al 1200 mg/1200 mg/30 ML UDCUP PO PRN ×3 (00:37→22:56)
[2017-10-30] MEDS: Piperacillin/Tazobactam 3.375 GM in Sodium Chloride 0.9% 100 ML IVPB SCH ×4 (02:20→21:05)
[2017-10-30] MEDS: Ondansetron HCl/PF 4 MG/2 ML Vial IVP PRN ×2 (02:32→09:41)
[2017-10-30 05:10] LABS: #Basophils 0.1 thou/uL (0.0-0.2); #Eosinphils 0.7 thou/uL (0.0-0.7); #Lymphocytes 3.2 thou/uL (1.20-3.40); #Monocytes 1.6 thou/uL (0.11-0.59); #Neutrophils 13.3 thou/uL (1.40-6.50); %Basophils 0.3 % (0.0-1.0); %Eosinophils 3.7 % (0.0-10.0); %Lymphocytes 17.1 % (21.0-51.0); %Monocytes 8.4 % (0.0-10.0); %Neutrophils 70.5 % (42.0-75.0); Hemoglobin 11.6 g/dL (12.0-16.0); Mean Corpuscular HGB CONC 33.3 g/dL (32.0-36.0); Mean Corpuscular Hemoglobin 28.8 pg (27.0-31.0); Mean Corpuscular Volume 86.5 fl (81.0-99.0); Mean Platelet Volume 6.4 fL (7.4-10.4); Platelet Count 462 thou/uL (130-400); RBC Distribution Width 13.8 % (11.5-14.5); Red Blood Cell (RBC) Count 4.02 mill/uL (4.20-5.40); White Blood Cell (WBC) Count 18.9 thou/uL (4.8-10.8)
[2017-10-30] MEDS: HYDROcodone/Acetaminophen 5/325 mg Tablet PO PRN ×2 (05:41→14:39)
[2017-10-30] MEDS: Propranolol 60 MG TAB PO SCH ×3 (05:41→22:53)
[2017-10-30 05:50] LABS: Anion Gap 14 mmol/L (10-20); BUN (Urea Nitrogen) 24 mg/dL (9.8-20.1); Calc. Creatinine Clearance 67 mL/min (70-130); Calcium 9.5 mg/dL (7.8-10.44); Carbon Dioxide 26 mmol/L (23-31); Chloride 97 mmol/L (98-107); Estimated GFR-MDRD 80; Glucose 110 mg/dL (83-110); Potassium 4.1 mmol/L (3.5-5.1); Sodium 133 mmol/L (136-145)
--- NOTE | 2017-10-30 07:57 | PRG ---
DATE OF SERVICE: 10/30/2017 HISTORY OF PRESENT ILLNESS: Ms. Carrera is hospital day #12 and postoperative day #6 for micro perfora parveen diverticulitis. When I operated on her she had minimal purulence and no feculent material. I pl aced a couple of drains. These have continued to drain a minimal appropriate amount of serosanguineo us fluid. This remains clear. Following her surgery she had been making good progress. She was afe brile. Vital signs were normal. Her white blood cell count was normalizing. As of yesterday, she b donna to vomit for uncertain reasons and today her white blood cell count is elevated at 18.9. She fe els that her pain is better. She notes that she began having regular bowel movements over the weeken d. PHYSICAL EXAMINATION: VITAL SIGNS: She is afebrile, pulse is 78, blood pressure 177/70. LUNGS: Clear to auscultation. ABDOMEN: Soft with persistent significant left-sided tenderness. This does appear to be marginally better than it was at the end of last week. Her bowel sounds now are very normoactive. LABORATORY STUDIES: Her basic metabolic panel reveals some minor electrolyte abnormalities. She is on TPN. ASSESSMENT: Steroid dependent patient with diverticulitis, making marginal improvement. In light of her normal bowel sounds, it would seem that her normal bowel function is resuming. I again spoke wi th her regarding the options of continued observation versus surgical resection of the involved segme nt. For now, I will try to advance her diet up to a full liquid diet and continue observation. If s he fails this particular episode then will probably need to proceed with the surgical intervention.
[2017-10-30] MEDS: predniSONE 5 MG TAB PO SCH (09:23)
--- NOTE | 2017-10-30 09:39 | RAD ---
ABDOMEN 2 VIEWS: HISTORY: Vomiting and resolving diverticulitis. FINDINGS: No free air is seen. There is contrast in lops of small and large bowel. Postop changes of cholecys tectomy and vertebroplasty are seen. Surgical drain is seen in the pelvis. There are degenerative c hanges with scoliosis of the spine. POS: [facility]
[2017-10-30] MEDS: MESALAMINE 1.2 GM PO SCH (09:55)
[2017-10-30] MEDS: Furosemide 40 MG TAB PO SCH (09:55)
[2017-10-30] MEDS: Lisinopril 10 MG TAB PO SCH ×2 (09:56→21:04)
[2017-10-30] MEDS: hydrALAZINE 25 MG TAB PO SCH ×3 (09:56→21:03)
[2017-10-30] MEDS: Folic Acid 1 MG TAB PO SCH (09:56)
[2017-10-30] MEDS: Potassium Chloride 20 MEQ TAB PO SCH ×2 (09:57→21:04)
[2017-10-30] MEDS: NIFEdipine XL 60 MG TAB PO SCH (09:57)
[2017-10-30] MEDS: Aspirin 81 mg Enteric Coated Tablet PO SCH (09:57)
[2017-10-30] MEDS: cloNIDine 0.3 MG TAB PO SCH ×3 (09:57→21:03)
[2017-10-30] MEDS: Saccharomyces boulardii 250 MG CAP PO SCH (09:57)
[2017-10-30] MEDS: Thyroid 60 MG TAB PO SCH (09:57)
[2017-10-30] MEDS: Bisacodyl 10 MG SUPP PR SCH ×2 (10:04→21:02)
[2017-10-30] MEDS: Polyethylene Glycol 3350 17 GM Packet PO SCH (10:04)
--- NOTE | 2017-10-30 11:50 | PDOC.PN ---
- Subjective Encounter Start Date: 10/30/17 Encounter Start Time: 11:35 Subjective: f/u for perforated sigmoid with diverticulitis s/p laparoscopy with washout -: POD #5. Receiving TPN and now liquids. + emesis this am and some loose -: stools. - Objective Resuscitation Status: Resuscitation Status DNR:Do Not Resuscitate MAR Reviewed: Yes Vital Signs & Weight: Vital Signs (12 hours) Temp Pulse Resp BP BP BP Pulse Ox 10/30/17 09:57 79 173/69 H 10/30/17 09:56 79 173/69 H 10/30/17 08:27 98.7 F 79 14 173/69 H 94 L 10/30/17 02:00 96 10/30/17 00:00 98.4 F 78 16 177/70 H 96 Weight Admit Weight 138 lb 4.8 oz Weight 138 lb 4.8 oz I&O: 10/29/17 10/30/17 10/31/17 06:59 06:59 06:59 Intake Total 1697 3623 Output Total 1125 1510 Balance 572 2113 Result Diagrams: 10/30/17 04:55 10/30/17 04:55 Additional Labs: Accuchecks 10/30/17 10/30/17 10/29/17 05:54 00:27 16:38 POC Glucose 180 H 154 H 207 H 10/29/17 12:13 POC Glucose 162 H Microbiology 10/24/17 21:40 Peritoneal Fluid Culture - Fluid Body Fluid Culture - Preliminary 10/24/17 21:40 Peritoneal Fluid Culture - Fluid Anaerobic Culture - Preliminary Escherichia coli Enterococcus avium Presumptive Noris albicans Anaerobic Gram Negative Scott 10/24/17 21:40 Peritoneal Fluid Culture - Fluid Body Fluid Culture - Preliminary 10/24/17 21:40 Peritoneal Fluid Culture - Fluid Gram Negative Scott Alpha-Hemolytic Streptococcus Presumptive Noris albicans Laboratory Tests 10/24/17 10/24/17 10/25/17 04:49 04:49 08:26 WBC 19.5 H Plt Count Neutrophils % 77.6 H Neutrophils % (Manual) 80 H Sodium 133 L Potassium 3.4 L 10/26/17 10/28/17 09:51 06:07 WBC 13.5 H 13.5 H Plt Count 346 Neutrophils % Neutrophils % (Manual) Sodium Potassium Radiology Reviewed by me: Yes (ABD x-rays - no free air, contrast in bowel loops ) Phys Exam - Physical Examination alert, talkative HEENT: PERRLA, sclera anicteric, oral pharynx no lesions Neck: no nodes, no JVD, supple, full ROM Respiratory: no wheezing, no rales, no rhonchi, clear to auscultation bilateral S1, S2 Cardiovascular: RRR, no significant murmur, no rub, gallop mild tenderness in LUQ, ALESSANDRA drains in place x 2 Gastrointestinal: soft, positive bowel sounds Musculoskeletal: no edema, pulses present Neurological: non-focal, normal sensation, moves all 4 limbs Psychiatric: normal affect, A&O x 3 Skin: no rash, normal turgor, cap refill <2 seconds Dx/Plan (1) Perforated sigmoid colon Code(s): K63.1 - PERFORATION OF INTESTINE (NONTRAUMATIC) Status: Acute Comment: Conservative mgmt, s/p laparoscopic washout with ALESSANDRA drain placement POD #5, advancing diet to liquids, continuing TPN (2) Sepsis Code(s): A41.9 - SEPSIS, UNSPECIFIED ORGANISM Status: Acute Qualifiers: Sepsis type: sepsis due to unspecified organism Qualified Code(s): A41.9 - Sepsis, unspecified organism Comment: Secondary to perforated diverticula, continue Zosyn (3) Acute diverticulitis of intestine Code(s): K57.92 - DVTRCLI OF INTEST, PART UNSP, W/O PERF OR ABSCESS W/O BLEED Status: Chronic Comment: recurrent, complicated, with microabscess/perforation , (4) Hypertension Code(s): I10 - ESSENTIAL (PRIMARY) HYPERTENSION Status: Chronic Qualifiers: Hypertension type: essential hypertension Qualified Code(s): I10 - Essential (primary) hypertension Comment: Labile, continue home BP regimen, Clonidine and Hydralazine PRN (5) Hyponatremia Code(s): E87.1 - HYPO-OSMOLALITY AND HYPONATREMIA Status: Acute Comment: stable continue to monitor, Na+ in am (6) Hypokalemia Code(s): E87.6 - HYPOKALEMIA Status: Acute Comment: KCL 20meq BID, K+ level in am, improved (7) Hypophosphatemia Code(s): E83.39 - OTHER DISORDERS OF PHOSPHORUS METABOLISM Status: Acute Comment: PO3 replacement, serial monitoring, resolved - Plan continue antibiotics, PT/OT, clinical social work therapist, out of bed/ambulate, DVT proph w/ SCDs Stable currently -: Continue conservative mgmt and advance liquid diet -: TPN for nutritional support -: Morphine Sulfate 2mg IV q4h prn -: AM lab: BMP, CBC * .
[2017-10-30] MEDS: HumaLOG 300 UNITS/3 ML VIAL SC PRN ×2 (13:16→18:06)
[2017-10-30] MEDS: SODIUM CHLORIDE IV SCH (14:42)
[2017-10-30] MEDS: SODIUM ACETATE IV SCH (14:42)
[2017-10-30] MEDS: [UNRECOGNIZED DRUG - OTHER] IV SCH (14:42)
[2017-10-30] MEDS: POTASSIUM ACETATE IV SCH (14:42)
[2017-10-31] MEDS: Calcium Carbonate 500 MG ChewTAB PO PRN (00:48)
[2017-10-31] MEDS: HYDROcodone/Acetaminophen 5/325 mg Tablet PO PRN (02:18)
[2017-10-31] MEDS: Piperacillin/Tazobactam 3.375 GM in Sodium Chloride 0.9% 100 ML IVPB SCH ×4 (02:20→21:07)
[2017-10-31 05:06] LABS: Anion Gap 12 mmol/L (10-20); BUN (Urea Nitrogen) 33 mg/dL (9.8-20.1); Calc. Creatinine Clearance 66 mL/min (70-130); Calcium 10.1 mg/dL (7.8-10.44); Carbon Dioxide 29 mmol/L (23-31); Chloride 96 mmol/L (98-107); Estimated GFR-MDRD 79; Glucose 102 mg/dL (83-110); Potassium 4.4 mmol/L (3.5-5.1); Sodium 133 mmol/L (136-145)
[2017-10-31 05:13] LABS: Band 6 % (5-11); Eosinophils 4 % (0-10); Hemoglobin 11.4 g/dL (12.0-16.0); Lymphocytes 24 % (21-51); MDiff Complete? YES; Mean Corpuscular Hemoglobin 28.7 pg (27.0-31.0); Mean Corpuscular Volume 86.8 fl (81.0-99.0); Mean Platelet Volume 6.5 fL (7.4-10.4); Metamyelocyte 2 % (0-0); Monocytes 2 % (0-10); Neutrophil 62 % (42-75); PLT Morphology Comment Appears Increased; Platelet Count 469 thou/uL (130-400); RBC Distribution Width 13.7 % (11.5-14.5); Red Blood Cell (RBC) Count 3.99 mill/uL (4.20-5.40); White Blood Cell (WBC) Count 20.3 thou/uL (4.8-10.8)
[2017-10-31] MEDS: Ondansetron HCl/PF 4 MG/2 ML Vial IVP PRN ×2 (05:14→13:40)
[2017-10-31] MEDS: Propranolol 60 MG TAB PO SCH ×2 (05:14→15:18)
--- NOTE | 2017-10-31 08:06 | PRG ---
DATE OF SERVICE: 10/31/2017 Ms. Hernandez is hospital day #13 and postoperative day #7 for microperforated diverticulitis. She still has 2 intra-abdominal drains. She has had a bad day in the last 24 hours. I tried to advance her t o full liquids and she tells me she has significant reflux with some vomiting. She notes that her le ft-sided pain actually seems to feel better. She has been unable to tolerate any meaningful oral int isidoro. She remains on TPN and IV antibiotics. Today, her white blood cell count has gone up from 18.9 yesterday to 20.3. PHYSICAL EXAMINATION: VITAL SIGNS: She remains afebrile. Temperature 97.9, pulse 78, blood pressure 165/72. LUNGS: Lung s are clear. ABDOMEN: The abdomen is more or less soft. She does have some tenderness and winces on the left, bu t is much improved from even yesterday. Bowel sounds are present and appear to be normoactive. Drai n output is clear serosanguineous. LABORATORY AND X-RAY FINDINGS: As mentioned, her white blood cell count is 20, hemoglobin 11.4. Bas ic metabolic panel is more or less unremarkable. Her last phosphate on the 16 was normal as was he r magnesium. ASSESSMENT: She remains on TPN and IV antibiotics, receiving Zosyn. I am not certain why he white b lood cell count is going higher. I am not certain why she is having trouble with oral intake. Her a bdominal x-rays yesterday were not really instructive other than recognized that she still has contra st in her colon. She does not really have any significant small bowel dilatation to suggest an obstr uctive process. She tells me she is having a few bowel movements a day and I still have her on Jessi ax. I will obtain another CAT scan today to see if this helps clarify what is going on with her. Jacqui vargas still may end up requiring a colon resection with or without an ostomy. She understands this. As I will be out of town starting tomorrow, Dr. Chua will cover in my absence.
[2017-10-31] MEDS: Lisinopril 10 MG TAB PO SCH ×2 (09:02→09:40)
[2017-10-31] MEDS: hydrALAZINE 25 MG TAB PO SCH ×3 (09:03→15:18)
[2017-10-31] MEDS: NIFEdipine XL 60 MG TAB PO SCH ×2 (09:03→09:40)
[2017-10-31] MEDS: cloNIDine 0.3 MG TAB PO SCH ×3 (09:03→15:18)
[2017-10-31] MEDS: Thyroid 60 MG TAB PO SCH ×2 (09:03→09:41)
[2017-10-31] MEDS: predniSONE 5 MG TAB PO SCH ×2 (09:03→09:39)
[2017-10-31] MEDS: Saccharomyces boulardii 250 MG CAP PO SCH ×2 (09:04→09:40)
[2017-10-31] MEDS: Folic Acid 1 MG TAB PO SCH ×2 (09:04→09:40)
[2017-10-31] MEDS: Aspirin 81 mg Enteric Coated Tablet PO SCH ×2 (09:04→09:39)
[2017-10-31] MEDS: Bisacodyl 10 MG SUPP PR SCH ×2 (09:13→21:08)
[2017-10-31] MEDS: Furosemide 40 MG TAB PO SCH (09:13)
[2017-10-31] MEDS: MESALAMINE 1.2 GM PO SCH (09:35)
[2017-10-31] MEDS: Polyethylene Glycol 3350 17 GM Packet PO SCH (09:36)
[2017-10-31] MEDS: Potassium Chloride 20 MEQ TAB PO SCH ×2 (09:36→21:08)
[2017-10-31] MEDS: hydrALAZINE 20 MG/ML VIAL SLOW IVP PRN (12:16)
[2017-10-31] MEDS: HumaLOG 300 UNITS/3 ML VIAL SC PRN (12:17)
--- NOTE | 2017-10-31 12:32 | CT ---
CT ABDOMEN AND PELVIS WITH IV CONTRAST: 10/31/2017 HISTORY: Recent perforated diverticulitis. High white blood cell count. Vomiting. COMPARISON: 10/24/2017 FINDINGS: There are two separate drainage catheters within the abdomen, one entering via the anterior right mid abdomen with the tip in the lower pelvis and a second drainage catheter entering via the right anter ior pelvis, with the tip at the lateral aspect of the left paracolic gutter. The previously noted fr ee intraperitoneal gas within the abdomen has resolved. There are inflammatory changes seen adjacent to the descending colon. This was the site of a presumed perforation on a prior exam. While no per cutaneously drainable fluid collection is present, there is a low density area seen adjacent to the d escending colon, which is in the region of the previously noted gas collection and inflammatory tello es as well, and is adjacent to the drainage catheter, best seen on coronal images, measuring 3.9 cm x 1.7 cm. Multiple colonic diverticula are again seen involving the descending and sigmoid colon. There are fluid-filled dilated loops of proximal jejunum with a transition point in the left abdomen, which is near the level of inflammatory changes and anterior to the descending colon. Loops of flui d-filled small bowel measure up to 3.9 cm in diameter. The stomach is distended and fluid-filled as well. Bowel loops distal to this region are decompressed. Findings are suggestive of a partial smal l bowel obstruction. Calcified granulomata are again seen in the liver and spleen. Post cholecystectomy changes are noted . There are a few scattered subcentimeter, [id number], hypodense lesions seen within the spleen. A tiny pericardial effusion is again present. There has been resolution of bilateral pleural effusio ns and bibasilar atelectasis. The pancreas, bilateral adrenal glands, and kidneys, as well as decompressed urinary bladder demonstr ate a grossly normal nonenhanced CT appearance. There is evidence of a hysterectomy. Prominent degenerative changes are seen involving the thoracic and lumbar spine with vertebroplasty c hanges involving the lower thoracic vertebral bodies, as well as the L3 vertebral body. There is a w edge-shaped compression fracture involving the L1 vertebral body, also seen on the prior exam. There is left convex scoliosis of the thoracolumbar spine. IMPRESSION: 1. Evidence for high grade partial small bowel obstruction with a transition point within the left l ower quadrant, anterior to the level of the descending colon. This is in the region of inflammatory changes in the left paracolic gutter, just lateral to the descending colon. While no percutaneously drainable fluid collection is present, there is a low density area seen adjacent to the descending co celsa, which is felt to more likely represent an area of phlegmon. 2. Residual pericardial effusion. 3. Resolution of bilateral pleural effusions as well as resolution of intraperitoneal free gas. 4. Drainage catheter is in place. 5. The remainder of the findings are as described above. 6. Findngs discussed with Dr. Alfonso on 10/31/17. POS: [facility]
[2017-10-31] MEDS ORDERED: ISOVUE-370 76%-LOCM 1 ML ONE (13:52)
[2017-10-31] MEDS ORDERED: Iopamidol 370 76% 50 ML VIAL FS ONE (13:53)
[2017-10-31] MEDS: SODIUM CHLORIDE IV SCH (15:07)
[2017-10-31] MEDS: SODIUM ACETATE IV SCH (15:07)
[2017-10-31] MEDS: POTASSIUM ACETATE IV SCH (15:07)
[2017-10-31] MEDS: [UNRECOGNIZED DRUG - OTHER] IV SCH (15:07)
[2017-10-31] MEDS ORDERED: Benzocaine 20% Spray 60 ML CAN FS SCH (15:45)
[2017-10-31] MEDS ORDERED: Lidocaine 2% Jelly 5 ML TUBE TOP SCH (15:45)
--- NOTE | 2017-10-31 18:28 | PDOC.PN ---
- Subjective Encounter Start Date: 10/31/17 Encounter Start Time: 18:15 Subjective: f/u for perforated diverticulitis s/p laparoscopic washout and ALESSANDRA drain -: placement. Now with increased N/V with CT showing SBO. NGT placed -: and NPO currently. - Objective Resuscitation Status: Resuscitation Status DNR:Do Not Resuscitate MAR Reviewed: Yes Vital Signs & Weight: Vital Signs (12 hours) Temp Pulse Resp BP Pulse Ox 10/31/17 16:00 97.7 F 78 20 163/60 H 94 L 10/31/17 12:16 76 10/31/17 12:00 97.7 F 76 18 125/85 94 L 10/31/17 08:02 97.8 F 76 20 96 10/31/17 08:00 97.8 F 76 20 158/78 H 96 Weight Admit Weight 138 lb 4.8 oz Weight 138 lb 4.8 oz I&O: 10/30/17 10/31/17 11/01/17 06:59 06:59 06:59 Intake Total 3623 3853 Output Total 1510 2035 Balance 2113 1818 Result Diagrams: 10/31/17 04:41 10/31/17 04:41 Additional Labs: Accuchecks 10/31/17 10/31/17 10/31/17 11:55 06:04 00:31 POC Glucose 166 H 151 H 182 H Microbiology 10/24/17 21:40 Peritoneal Fluid Culture - Fluid Body Fluid Culture - Preliminary 10/24/17 21:40 Peritoneal Fluid Culture - Fluid Anaerobic Culture - Preliminary Escherichia coli Enterococcus avium Presumptive Noris albicans Anaerobic Gram Negative Scott 10/24/17 21:40 Peritoneal Fluid Culture - Fluid Body Fluid Culture - Preliminary 10/24/17 21:40 Peritoneal Fluid Culture - Fluid Gram Negative Scott Alpha-Hemolytic Streptococcus Presumptive Noris albicans Laboratory Tests 10/24/17 10/24/17 10/25/17 04:49 04:49 08:26 WBC 19.5 H Plt Count Neutrophils % 77.6 H Neutrophils % (Manual) 80 H Sodium 133 L Potassium 3.4 L 10/26/17 10/28/17 10/30/17 09:51 06:07 04:55 WBC 13.5 H 13.5 H 18.9 H Plt Count 346 462 H Neutrophils % Neutrophils % (Manual) Sodium Potassium Radiology Reviewed by me: Yes (CT abd - partial SBO near descending colon, + phlegmon) Phys Exam - Physical Examination alert, responsive, ill-appearing NGT in place HEENT: PERRLA, sclera anicteric, oral pharynx no lesions Neck: no nodes, no JVD, supple, full ROM diminished in bases Respiratory: no wheezing, no rales, no rhonchi, clear to auscultation bilateral S1, S2 Cardiovascular: RRR, no significant murmur, no rub, gallop distending, bowel sounds diminished x 4, ALESSANDRA drains in place Musculoskeletal: no edema, pulses present Neurological: non-focal, normal sensation, moves all 4 limbs Psychiatric: normal affect, A&O x 3 Skin: no rash, normal turgor, cap refill <2 seconds Dx/Plan (1) SBO (small bowel obstruction) Code(s): K56.609 - UNSP INTESTNL OBST, UNSP TO PARTIAL VERSUS COMPLETE OBST Status: Acute Comment: NGT placed with LIWS, NPO, serial abd exams, pain control with Morphine Sulfate IV (2) Perforated sigmoid colon Code(s): K63.1 - PERFORATION OF INTESTINE (NONTRAUMATIC) Status: Acute Comment: Conservative mgmt, s/p laparoscopic washout with ALESSANDRA drain placement POD #6 (3) Sepsis Code(s): A41.9 - SEPSIS, UNSPECIFIED ORGANISM Status: Acute Qualifiers: Sepsis type: sepsis due to unspecified organism Qualified Code(s): A41.9 - Sepsis, unspecified organism Comment: Secondary to perforated diverticula, continue Zosyn (4) Acute diverticulitis of intestine Code(s): K57.92 - DVTRCLI OF INTEST, PART UNSP, W/O PERF OR ABSCESS W/O BLEED Status: Chronic Comment: recurrent, complicated, with microabscess/perforation , (5) Hypertension Code(s): I10 - ESSENTIAL (PRIMARY) HYPERTENSION Status: Chronic Qualifiers: Hypertension type: essential hypertension Qualified Code(s): I10 - Essential (primary) hypertension Comment: Labile, continue home BP regimen, Clonidine and Hydralazine PRN (6) Hyponatremia Code(s): E87.1 - HYPO-OSMOLALITY AND HYPONATREMIA Status: Acute Comment: stable continue to monitor, Na+ in am (7) Hypokalemia Code(s): E87.6 - HYPOKALEMIA Status: Acute Comment: KCL 20meq BID, K+ level in am, improved (8) Hypophosphatemia Code(s): E83.39 - OTHER DISORDERS OF PHOSPHORUS METABOLISM Status: Acute Comment: PO3 replacement, serial monitoring, resolved - Plan continue antibiotics, PT/OT, pediatric social worker, DVT proph w/SCDs Continue NGT LIWS -: NPO currently -: Add Clonidine patch weekly -: Hydralazine IV prn -: Morphine Sulfate IV prn pain control * Change Protonix 40mg IV daily * TPN for nutritional support * AM lab: BMP, CBC
[2017-10-31] MEDS: Pantoprazole 40 MG VIAL IVP SCH (21:08)
[2017-10-31] MEDS ORDERED: cloNIDine 0.3mg/24 Hour PATCH TD SCH (21:30)
[2017-11-01] MEDS: Piperacillin/Tazobactam 3.375 GM in Sodium Chloride 0.9% 100 ML IVPB SCH ×4 (03:21→20:15)
[2017-11-01 05:55] LABS: Band 5 % (5-11); Eosinophils 5 % (0-10); Hemoglobin 10.8 g/dL (12.0-16.0); Lymphocytes 14 % (21-51); MDiff Complete? YES; Mean Corpuscular HGB CONC 32.4 g/dL (32.0-36.0); Mean Corpuscular Hemoglobin 28.2 pg (27.0-31.0); Mean Corpuscular Volume 87.2 fL (78.0-98.0); Mean Platelet Volume 6.7 fL (7.4-10.4); Monocytes 4 % (0-10); Neutrophil 71 % (42-75); PLT Morphology Comment Appears Increased; Platelet Count 410 thou/uL (130-400); RBC Distribution Width 13.6 % (11.5-14.5); Red Blood Cell (RBC) Count 3.81 mill/uL (4.20-5.40); White Blood Cell (WBC) Count 20.2 thou/uL (4.8-10.8)
[2017-11-01 06:00] LABS: Anion Gap 15 mmol/L (10-20); BUN (Urea Nitrogen) 34 mg/dL (9.8-20.1); Calc. Creatinine Clearance 64 mL/min (70-130); Calcium 10.3 mg/dL (7.8-10.44); Carbon Dioxide 27 mmol/L (23-31); Chloride 100 mmol/L (98-107); Estimated GFR-MDRD 76; Glucose 102 mg/dL (83-110); Potassium 3.9 mmol/L (3.5-5.1); Sodium 138 mmol/L (136-145)
[2017-11-01] MEDS: hydrALAZINE 20 MG/ML VIAL SLOW IVP PRN (08:05)
[2017-11-01] MEDS: Polyethylene Glycol 3350 17 GM Packet PO SCH (09:54)
[2017-11-01] MEDS: Aspirin 81 mg Enteric Coated Tablet PO SCH (09:54)
[2017-11-01] MEDS: MESALAMINE 1.2 GM PO SCH (09:54)
[2017-11-01] MEDS: Potassium Chloride 20 MEQ TAB PO SCH ×2 (09:54→20:14)
[2017-11-01] MEDS: Furosemide 40 MG TAB PO SCH (09:54)
[2017-11-01] MEDS: predniSONE 5 MG TAB PO SCH (09:54)
[2017-11-01] MEDS: Bisacodyl 10 MG SUPP PR SCH ×2 (09:54→20:17)
[2017-11-01] MEDS: Folic Acid 1 MG TAB PO SCH (09:54)
[2017-11-01] MEDS: Saccharomyces boulardii 250 MG CAP PO SCH (09:55)
[2017-11-01] MEDS: Thyroid 60 MG TAB PO SCH (09:55)
--- NOTE | 2017-11-01 12:00 | PDOC.PN ---
- Subjective Encounter Start Date: 11/01/17 Encounter Start Time: 11:55 Subjective: f/u for perforated diverticulitis s/p laparoscopic washout with ALESSANDRA drains -: with SBO and NGT placement. Some abd pain, NGT output brisk. -: NPO status. Nsg noted mild tachycardia. - Objective Resuscitation Status: Resuscitation Status DNR:Do Not Resuscitate MAR Reviewed: Yes Vital Signs & Weight: Vital Signs (12 hours) Temp Pulse Pulse Pulse Pulse Resp BP 11/01/17 11:25 11/01/17 11:16 99.6 F 104 H 14 11/01/17 08:48 142 H 119 H 117 H 133/77 11/01/17 08:09 107 H 11/01/17 08:02 98.8 F 107 H 14 11/01/17 07:52 98.8 F 111 H 14 11/01/17 04:44 98.4 F 100 15 BP BP BP BP Pulse Ox Pulse Ox Pulse Ox 11/01/17 11:25 173/68 H 11/01/17 11:16 190/71 H 92 L 11/01/17 08:48 183/78 H 161/65 H 93 L 94 L 11/01/17 08:09 11/01/17 08:02 94 L 11/01/17 07:52 194/71 H 94 L 11/01/17 04:44 174/67 H 92 L Pulse Ox 11/01/17 11:25 11/01/17 11:16 11/01/17 08:48 93 L 11/01/17 08:09 11/01/17 08:02 11/01/17 07:52 11/01/17 04:44 Weight Admit Weight 138 lb 4.8 oz Weight 138 lb 4.8 oz I&O: 10/31/17 11/01/17 11/02/17 06:59 06:59 06:59 Intake Total 3853 2595 Output Total 2035 3805 Balance 1818 -1210 Result Diagrams: 11/01/17 05:15 11/01/17 05:15 Additional Labs: Accuchecks 11/01/17 11/01/17 10/31/17 05:41 00:36 18:40 POC Glucose 141 H 125 H 181 H 10/31/17 11:55 POC Glucose 166 H Microbiology 06/12/18 21:40 Peritoneal Fluid Culture - Fluid Body Fluid Culture - Preliminary 10/24/17 21:40 Peritoneal Fluid Culture - Fluid Anaerobic Culture - Preliminary Escherichia coli Enterococcus avium Presumptive Noris albicans Anaerobic Gram Negative Scott 10/24/17 21:40 Peritoneal Fluid Culture - Fluid Body Fluid Culture - Preliminary 10/24/17 21:40 Peritoneal Fluid Culture - Fluid Gram Negative Scott Alpha-Hemolytic Streptococcus Presumptive Noris albicans Laboratory Tests 10/24/17 10/24/17 10/25/17 04:49 04:49 08:26 WBC 19.5 H Plt Count Neutrophils % 77.6 H Neutrophils % (Manual) 80 H Sodium 133 L Potassium 3.4 L 10/26/17 10/28/17 10/30/17 09:51 06:07 04:55 WBC 13.5 H 13.5 H 18.9 H Plt Count 346 462 H Neutrophils % Neutrophils % (Manual) Sodium Potassium Phys Exam - Physical Examination Constitutional: NAD NGT in place HEENT: PERRLA, sclera anicteric, oral pharynx no lesions Neck: no nodes, no JVD, supple, full ROM Respiratory: no wheezing, no rales, no rhonchi, clear to auscultation bilateral tachycardic S1, S2 Cardiovascular: no significant murmur, no rub, gallop TTP in LUQ, mild distention Gastrointestinal: positive bowel sounds Musculoskeletal: no edema, pulses present Neurological: non-focal, normal sensation, moves all 4 limbs Psychiatric: A&O x 3 Skin: no rash, normal turgor, cap refill <2 seconds Dx/Plan (1) SBO (small bowel obstruction) Code(s): K56.609 - UNSP INTESTNL OBST, UNSP TO PARTIAL VERSUS COMPLETE OBST Status: Acute Comment: NGT placed with LIWS, NPO, serial abd exams, pain control with Morphine Sulfate IV, ? need for surgical intervention given protracted course without significant improvement (2) Perforated sigmoid colon Code(s): K63.1 - PERFORATION OF INTESTINE (NONTRAUMATIC) Status: Acute Comment: Conservative mgmt, s/p laparoscopic washout with ALESSANDRA drain placement POD #7 (3) Sepsis Code(s): A41.9 - SEPSIS, UNSPECIFIED ORGANISM Status: Acute Qualifiers: Sepsis type: sepsis due to unspecified organism Qualified Code(s): A41.9 - Sepsis, unspecified organism Comment: Secondary to perforated diverticula, continue Zosyn (4) Acute diverticulitis of intestine Code(s): K57.92 - DVTRCLI OF INTEST, PART UNSP, W/O PERF OR ABSCESS W/O BLEED Status: Chronic Comment: recurrent, complicated, with microabscess/perforation , (5) Hypertension Code(s): I10 - ESSENTIAL (PRIMARY) HYPERTENSION Status: Chronic Qualifiers: Hypertension type: essential hypertension Qualified Code(s): I10 - Essential (primary) hypertension Comment: Labile, continue home BP regimen, Clonidine and Hydralazine PRN (6) Hyponatremia Code(s): E87.1 - HYPO-OSMOLALITY AND HYPONATREMIA Status: Acute Comment: stable continue to monitor, Na+ in am (7) Hypokalemia Code(s): E87.6 - HYPOKALEMIA Status: Acute Comment: KCL 20meq BID, K+ level in am, improved (8) Hypophosphatemia Code(s): E83.39 - OTHER DISORDERS OF PHOSPHORUS METABOLISM Status: Acute Comment: PO3 replacement, serial monitoring, resolved - Plan continue antibiotics, PT/OT, home health care social worker, out of bed/ambulate, DVT proph w/ SCDs Continue supportive mgmt -: NGT with LIWS -: Continue Zosyn -: Pain control with Morphine Sulfate 4mg IV q4h -: Continue Catapres patch, Hydralazine for BP mgmt * AM lab: CBC * TPN for nutritional support
[2017-11-01] MEDS ORDERED: HYDROcodone/Acetaminophen 5/325 mg Tablet PO PRN (13:05)
[2017-11-01] MEDS: Ondansetron HCl/PF 4 MG/2 ML Vial IVP PRN (14:12)
[2017-11-01] MEDS: SODIUM CHLORIDE IV SCH (14:28)
[2017-11-01] MEDS: POTASSIUM ACETATE IV SCH (14:28)
[2017-11-01] MEDS: [UNRECOGNIZED DRUG - OTHER] IV SCH (14:28)
[2017-11-01] MEDS: SODIUM ACETATE IV SCH (14:28)
[2017-11-01] MEDS: Pantoprazole 40 MG VIAL IVP SCH (20:16)
--- NOTE | 2017-11-01 21:20 | PRG ---
DATE OF SERVICE: 11/01/2017 SUBJECTIVE: Ms. Carrera has been doing well today. She underwent on 10/26/[address] Escobar with drain placement, abdominal washout for suspected microperforation diverticulitis. She post operatively has developed bowel obstruction according to CAT scan yesterday. NG tube output has been 1500 mL last 24 hours. OBJECTIVE: VITAL SIGNS: Temperature 99.1 degrees, heart rate earlier today 191 to 104, respiration rate 18, 160 /76 but more recently a CODE GREEN was called because she complained of chest pain with heart rate of 170. The patient has had a Watchman's procedure done in the past and has had cardiac ablations perf ormed. She has seen as soon as last month. Hospitalist are en route to see her currently. LUNGS: Clear to auscultation. CARDIAC: Sinus tachycardia. ABDOMEN: Soft, no guarding or rebound. EXTREMITIES: Unremarkable. LABORATORY DATA: Sodium 138, potassium 3.9, BUN 34, creatinine 0.74. White count 20, hemoglobin 10, hematocrit 33. ASSESSMENT AND PLAN: 1. Sinus tachycardia with chest pain. She saw last week in the last few weeks. Hospitalis t will see her more likely transfer to the unit. 2. Bowel obstruction post-laparoscopy. She may need a repeat laparoscopy after cardiac situation ev aluated this could be performed in the next 24-48 hours. Continue n.p.o., NG tube for now. No indic ation for acute surgical intervention necessary at this time on an urgent basis, but would likely be necessary in the next day or two.
[2017-11-01] MEDS: Diltiazem HCl 125 MG, Admixture Fee 1 EACH in Sodium Chloride 0.9% 100 ML IVPB SCH (21:30)
[2017-11-01 21:44] LABS: Anion Gap 15 mmol/L (10-20); BUN (Urea Nitrogen) 30 mg/dL (9.8-20.1); Calc. Creatinine Clearance 67 mL/min (70-130); Calcium 10.2 mg/dL (7.8-10.44); Carbon Dioxide 24 mmol/L (23-31); Chloride 102 mmol/L (98-107); Estimated GFR-MDRD 80; Glucose 127 mg/dL (83-110); Magnesium 1.8 mg/dL (1.6-2.6); Phosphorus 3.1 mg/dL (2.3-4.7); Potassium 3.8 mmol/L (3.5-5.1); Sodium 137 mmol/L (136-145)
[2017-11-01 23:16] LABS: #Basophils 0.1 thou/uL (0.0-0.2); #Eosinphils 0.8 thou/uL (0.0-0.7); #Lymphocytes 3.4 thou/uL (1.20-3.40); #Monocytes 1.7 thou/uL (0.11-0.59); #Neutrophils 11.8 thou/uL (1.40-6.50); %Basophils 0.3 % (0.0-1.0); %Eosinophils 4.4 % (0.0-10.0); %Lymphocytes 19.1 % (21.0-51.0); %Monocytes 9.5 % (0.0-10.0); %Neutrophils 66.6 % (42.0-75.0); Hemoglobin 11.5 g/dL (12.0-16.0); Mean Corpuscular HGB CONC 33.3 g/dL (32.0-36.0); Mean Corpuscular Hemoglobin 28.8 pg (27.0-31.0); Mean Corpuscular Volume 86.5 fL (78.0-98.0); Mean Platelet Volume 6.7 fL (7.4-10.4); Platelet Count 415 thou/uL (130-400); RBC Distribution Width 13.7 % (11.5-14.5); Red Blood Cell (RBC) Count 3.98 mill/uL (4.20-5.40); White Blood Cell (WBC) Count 17.8 thou/uL (4.8-10.8)
[2017-11-01 23:21] LABS: Anion Gap 16 mmol/L (10-20); BUN (Urea Nitrogen) 29 mg/dL (9.8-20.1); Calc. Creatinine Clearance 65 mL/min (70-130); Calcium 10.1 mg/dL (7.8-10.44); Carbon Dioxide 24 mmol/L (23-31); Chloride 102 mmol/L (98-107); Estimated GFR-MDRD 78; Glucose 133 mg/dL (83-110); Potassium 3.7 mmol/L (3.5-5.1); Sodium 138 mmol/L (136-145)
[2017-11-02] MEDS: Piperacillin/Tazobactam 3.375 GM in Sodium Chloride 0.9% 100 ML IVPB SCH ×4 (03:54→22:18)
[2017-11-02 05:23] LABS: Band 2 % (5-11); Eosinophils 2 % (0-10); Hemoglobin 10.9 g/dL (12.0-16.0); Lymphocytes 19 % (21-51); MDiff Complete? YES; Mean Corpuscular HGB CONC 33.4 g/dL (32.0-36.0); Mean Corpuscular Hemoglobin 29.4 pg (27.0-31.0); Mean Corpuscular Volume 88.1 fL (78.0-98.0); Mean Platelet Volume 7.3 fL (7.4-10.4); Monocytes 8 % (0-10); Neutrophil 69 % (42-75); PLT Morphology Comment Appears Increased; Platelet Count 423 thou/uL (130-400); RBC Distribution Width 13.7 % (11.5-14.5); Red Blood Cell (RBC) Count 3.69 mill/uL (4.20-5.40); White Blood Cell (WBC) Count 15.7 thou/uL (4.8-10.8)
--- NOTE | 2017-11-02 06:41 | PDOC.EVN ---
Event Note - Event Note Event Note: Code green called since pt was in a fib with rvr, pt placed in cardizem drip with control of rate, will need cardiology evaluation for assistance specially given need for possible procedure in next 24-48 hours as expected from surgery ( discussed with Dr Chua )Please see code sheet for details.
[2017-11-02] MEDS: Diltiazem HCl 125 MG, Admixture Fee 1 EACH in Sodium Chloride 0.9% 100 ML IVPB SCH (08:00)
[2017-11-02] MEDS: predniSONE 5 MG TAB PO SCH (09:03)
[2017-11-02 09:29] LABS: Magnesium 1.9 mg/dL (1.6-2.6); Phosphorus 3.2 mg/dL (2.3-4.7)
--- NOTE | 2017-11-02 09:59 | CON ---
DATE OF CONSULTATION: 11/02/2017 CONSULTING PHYSICIAN: Pardeepist . REASON FOR CONSULTATION: CCU admit. HISTORY OF PRESENT ILLNESS: Ms. Carrera is a 76-year-old female, who was admitted to the hospital on 10/19/2017 with abdominal discomfort. She was diagnosed with a bowel obstruction. She required a laparotomy on 10/24/2017 for a perforated diverticulitis with pneumoperitoneum. During that operation, she had catheter irrigation with drainage of intra-abdominal abscess and placement of drains. Her postoperative course has been complicated by atrial fibrillation, because she has been kept n.p.o. and has been unable to take her routine meds. She was transferred over to the CCU last night for atrial fibrillation with a rapid ventricular response. She is on a Cardizem drip, and right now, her heart rate is under control. She says her breathing has been okay. Dr. Thomson was taking care of her in the past in regard to asthma. PAST MEDICAL HISTORY: 1. Asthma. 2. Diverticulosis. 3. Atrial fibrillation. 4. Chronic diastolic heart failure. 5. Hypertension. 6. Hypothyroidism. 7. Sjogren's syndrome. 8. Chronic steroid use. 9. [place]'s disease. 10. Anemia. 11. Migraines. 12. Gastroesophageal reflux. PAST SURGICAL HISTORY: 1. Thyroidectomy. 2. Hysterectomy with oophorectomy. 3. Appendectomy. 4. Cataract surgery. 5. Cholecystectomy. 6. Recent laparotomy. 7. Watchman procedure. 8. Back surgery. 9. EGD and colonoscopy. ALLERGIES: AMLODIPINE, MORPHINE, MESALAMINE, GABAPENTIN. FAMILY MEDICAL HISTORY: Remarkable for lung cancer, diabetes, hypertension, heart disease. SOCIAL HISTORY: Nonsmoker, does not consume alcohol, does not use illicit drugs. Lives at home. REVIEW OF SYSTEMS: Otherwise, negative. MEDICATIONS: Inpatient medication list was reviewed. It is noted under the active medications section on the chart. Of note, she is taking prednisone 15 mg daily right now, but I suspect it is probably being held due to her n.p.o. status. PHYSICAL EXAMINATION: VITAL SIGNS: Temperature 99.0, pulse 113, blood pressure 155/48, O2 saturation 96%. GENERAL: She is awake, alert, does not appear to be in distress. HEENT EXAM: Pupils react. Sclerae icteric. Oropharynx clear. She has an NG tube in place. NECK: Without adenopathy or JVD. LUNGS: Clear without wheezing or rhonchi. CARDIAC: S1 and S2 irregularly irregular with controlled rate. ABDOMEN: Soft. Bowel sounds hypoactive. She has 2 drains present, right lower quadrant of her abdomen. EXTREMITIES: No clubbing, cyanosis, or edema. LABORATORY DATA: Sodium 130, potassium 3.7, chloride 102, CO2 of 24, BUN 29, creatinine 0.7, glucose 133. White blood cell count 15.7, hematocrit 32.5, platelet count 423. ASSESSMENT: 1. Atrial fibrillation with rapid ventricular response. 2. Status post operation for perforated diverticulitis, now with what sounds to be a prolonged ileus. 3. Stable chronic obstructive pulmonary disease/asthma. RECOMMENDATIONS: 1. She could be transferred out to a monitored bed. If she is truly unable to take her oral medication, then she needs to be changed to IV steroids. 2. Nebulization treatments as needed. 70 minutes of time was spent performing consult. Of that 70 minutes, greater than 50% of the time was spent with the patient and/or on the patient's unit in the hospital. ANISA
--- NOTE | 2017-11-02 10:02 | RAD ---
ACUTE ABDOMINAL SERIES: Date: 11/02/17 HISTORY: Small bowel obstruction. FINDINGS: CHEST: Comparison made with study on 10/24/17. A left subclavian central venous catheter remains in place and unchanged in position. There has been interval placement of a nasogastric tube, tip overlying the expected location of the gastric antrum n ear the pylorus. Cardiac silhouette and pulmonary vasculature are within normal limits for the portab le technique of the study. Stable linear densities in the right upper lung zone are present, which ma y be related to mild scarring. Lungs are otherwise clear. Vascular calcifications in thoracic aorta. Vertebroplasty changes are seen involving the lower thoracic vertebral bodies. UPRIGHT AND SUPINE VIEWS OF ABDOMEN: Compared to study on 10/30/17. Again noted is residual contrast seen throughout the colon. There is a single, gas-filled dilated loo p of small bowel seen within the central abdomen just to the left of midline. Drainage catheters agai n overlie the abdomen and pelvis, with tip of one of the drainage catheters overlying the left paraco lic gutter and the second overlying the midline of the pelvis. Vertebroplasty changes of the L3 verte bral body are noted with postsurgical changes of the spine. Vascular calcifications are seen in the a bdominal aorta. Surgical clips overlie the right upper quadrant. No other interval change. IMPRESSION: Persistent contrast within the colon with a single dilated loop of small bowel within the mid abdomen just to the left of midline. Left lateral decubitus view shows a few differential air fluid levels c oncerning for a partial small bowel obstruction. POS: [facility]
[2017-11-02] MEDS: Levothyroxine 100 MCG SDV IVP SCH (10:23)
[2017-11-02] MEDS: MESALAMINE 1.2 GM PO SCH (10:24)
[2017-11-02] MEDS: Polyethylene Glycol 3350 17 GM Packet PO SCH (10:25)
[2017-11-02] MEDS: HumaLOG 300 UNITS/3 ML VIAL SC PRN ×3 (10:42→22:21)
[2017-11-02] MEDS: SODIUM ACETATE IV SCH (15:24)
[2017-11-02] MEDS: SODIUM CHLORIDE IV SCH (15:24)
[2017-11-02] MEDS: POTASSIUM ACETATE IV SCH (15:24)
[2017-11-02] MEDS: [UNRECOGNIZED DRUG - OTHER] IV SCH (15:24)
[2017-11-02] MEDS: hydrALAZINE 20 MG/ML VIAL SLOW IVP PRN (16:42)
[2017-11-02] MEDS ORDERED: Metoprolol Tartrate 5 MG/5 ML VIAL IVP SCH (18:45)
[2017-11-02] MEDS: Pantoprazole 40 MG VIAL IVP SCH (22:18)
--- NOTE | 2017-11-02 23:11 | PRG ---
DATE OF SERVICE: 11/02/2017 SUBJECTIVE: Arabella Carrera is in ICU. She seems comfortable. OBJECTIVE: LUNGS: Clear to auscultation. CARDIAC: Regular rate and rhythm without murmur or gallop. ABDOMEN: Soft. Her heart rate is controlled on a Cardizem drip. She probably needs to be started on a parenteral be ta bobbi to enable Cardizem weaning. She should be up in a chair 3 or 4 times a day. NG tube outp ut over 24 hours is 650 mL. This is much improved from 1500 mL. X-rays revealed improved relatively comparing them to a CAT scan. She has not passed any stool or flatus. ASSESSMENT AND PLAN: Doing well with possible partial or high grade bowel obstruction. Recheck her x-rays in the morning. Hopefully, can avoid another operation, although if necessary laparoscopy cou ld be considered.
[2017-11-02] MEDS: Metoprolol Tartrate 5 MG/5 ML VIAL IVP SCH (23:49)
[2017-11-03] MEDS ORDERED: Lorazepam 2 MG/ML VIAL SLOW IVP SCH (00:30)
--- NOTE | 2017-11-03 03:02 | CON ---
DATE OF CONSULTATION: 11/02/2017 HISTORY: Ms. Carrera is a 76-year-old white female who has longstanding history of atrial fibrillation. She has undergone 2 previous ablations and also had a Watchman device placed in 01/2017. Currently, the only cardiac drug she takes is Inderal 60 mg SR for hypertension. She states that she has not had any recurrence of atrial fibrillation since her last ablation in 01/2016. She now was admitted to the hospital on 10/19/2017. She was having abdominal pain and was diagnosed with a bowel obstruction. She ultimately underwent laparotomy on 10/24/2017 for perforated diverticulitis and pneumoperitoneum. She had drainage of intra-abdominal abscess. She now was transferred to the ICU due to atrial fibrillation with fast ventricular response. She has been n.p.o. and has not been able to take her beta-bobbi. She does complain of some mild chest pressure at times and states that she knows why she feels this way now because she is back in AFib. PAST MEDICAL HISTORY: Remarkable for atrial fibrillation as well as placement of a Watchman device, diverticulitis, Sjogren disease on steroids, hypertension , hypothyroidism, hypercholesterolemia, history of TIA, [place] disease, anemia , migraines, GERD, chronic back pain, history of diastolic heart failure, history of asthma. OPERATIONS: Thyroidectomy, cholecystectomy, hysterectomy, back surgery, drainage of strep infection for left elbow, appendectomy, carpal tunnel release , placement of Watchman and atrial fibrillation ablation x2,. MEDICATIONS: At home include; aspirin 81 daily, Maalox p.r.n., Dulcolax 10 mg p.r.n., buspirone 10 mg at bedtime, clonidine 0.3 t.i.d., folic acid 0.4 daily, furosemide 40 q.a.m., hydralazine 100 mg daily, lisinopril 10 mg b.i.d., mesalamine 3.6 g daily, MiraLax, K-Dur 20 mEq b.i.d., prednisone 15 daily, propranolol 60 SR qd to TID, Crestor 10 mg daily, Florastor 250 mg daily, and [place] Thyroid 60 mg daily. ALLERGIES: AMLODIPINE. SOCIAL HISTORY: She does not smoke or drink. FAMILY HISTORY: Negative for CABG. REVIEW OF SYSTEMS: A 12-point review of systems is otherwise unremarkable. PHYSICAL EXAMINATION: VITAL SIGNS: Blood pressure 117/47, pulse of 100 and irregularly irregular. HEENT: PERRL. NECK: Supple. LUNGS: Chest is clear. CARDIAC: S1 and S2 are normal, without any S3 or S4. There is a 1/6 systolic murmur at the apex. ABDOMEN: Reveals occasional bowel sounds. EXTREMITIES: Revealed no clubbing, cyanosis or edema. NEUROLOGIC: Grossly intact. LABORATORY: EKG on admission reveals normal sinus rhythm with nonspecific ST and T-wave changes. EKG yesterday revealed probable supraventricular tachycardia with fairly irregular rhythm with a rate of 170 per minute. She has been placed on intravenous Cardizem and now it is evident that she has atrial fibrillation. Hemoglobin 10.9, hematocrit 32.5, white count 15,700, platelets 423,000. Sodium 138, potassium 3.7, chloride 102, carbon dioxide 24, BUN 29, creatinine 0.73. IMPRESSION: 1. Status post laparotomy for pneumoperitoneum and ruptured diverticulum with abscess formation. 2. Recurrence of atrial fibrillation. She has had 2 previous ablations and also Watchman has been placed. She has had abrupt withdrawal from her beta- bobbi as well as a fairly high dose clonidine and her blood pressure many times in the 160-180 range. 3. Hypertension. 4. Sjogren syndrome. 5. Hypothyroidism. 6. Dyslipidemia. PLAN: The patient is on fairly high-dose beta-bobbi - total 180 mg of propranolol per day. Also, she was on fairly high-dose of clonidine. She will be started on IV metoprolol to better control her rate and hopefully her blood pressure. The dose of this may need to be slowly increased. Anticoagulation is not needed since she has a Watchman in place. Once she is better from her acute illness, consideration may be given to cardioversion to restore sinus rhythm. MALVIND
[2017-11-03] MEDS: Piperacillin/Tazobactam 3.375 GM in Sodium Chloride 0.9% 100 ML IVPB SCH ×4 (03:49→20:12)
[2017-11-03] MEDS: Diltiazem HCl 125 MG, Admixture Fee 1 EACH in Sodium Chloride 0.9% 100 ML IVPB SCH ×2 (03:50→15:37)
[2017-11-03] MEDS: Metoprolol Tartrate 5 MG/5 ML VIAL IVP SCH ×4 (05:55→20:12)
[2017-11-03 08:00] LABS: ALT (SGPT) 26 U/L (8-55); AST (SGOT) 26 U/L (5-34); Albumin 3.3 g/dL (3.4-4.8); Alkaline Phosphatase 86 U/L (40-150); Anion Gap 15 mmol/L (10-20); BUN (Urea Nitrogen) 30 mg/dL (9.8-20.1); Bilirubin, Total 0.6 mg/dL (0.2-1.2); Calc. Creatinine Clearance 0 mL/min (70-130); Calcium 10.4 mg/dL (7.8-10.44); Carbon Dioxide 25 mmol/L (23-31); Chloride 107 mmol/L (98-107); Estimated GFR-MDRD 73; Globulin 3.6 g/dL (2.4-3.5); Glucose 158 mg/dL (83-110); Magnesium 1.9 mg/dL (1.6-2.6); Potassium 3.7 mmol/L (3.5-5.1); Protein, Total 6.9 g/dL (6.0-8.3); Sodium 143 mmol/L (136-145)
[2017-11-03] MEDS: Levothyroxine 100 MCG SDV IVP SCH ×2 (09:22→09:40)
[2017-11-03] MEDS: MESALAMINE 1.2 GM PO SCH (09:30)
[2017-11-03] MEDS: Polyethylene Glycol 3350 17 GM Packet PO SCH (09:30)
--- NOTE | 2017-11-03 10:17 | PDOC.PN ---
- Subjective Encounter Start Date: 11/02/17 Encounter Start Time: 18:20 Subjective: f/u for A-fib RVR and code sulema called early in the am. Pt states she -: really felt ok and that she didn't understand all the commotion. Tx -: with Cardizem. Abd feels a little better. Continues on NGT. - Objective Resuscitation Status: Resuscitation Status DNR:Do Not Resuscitate MAR Reviewed: Yes Vital Signs & Weight: Vital Signs (12 hours) Temp 11/03/17 07:00 98.5 F 11/03/17 04:00 99.2 F 11/03/17 00:00 99.4 F Weight Admit Weight 138 lb 4.8 oz Weight 1.859 oz Most Recent Monitor Data Heart Rate from ECG 78 NIBP 168/50 NIBP BP-Mean 101 Respiration from ECG 20 SpO2 95 I&O: 11/02/17 11/03/17 11/04/17 06:59 06:59 06:59 Intake Total 2440.3 2935 10 Output Total 680 861 0 Balance 1760.3 2074 10 Result Diagrams: 11/02/17 04:00 11/03/17 07:18 Additional Labs: Accuchecks 11/03/17 11/02/17 11/02/17 05:54 21:59 16:39 POC Glucose 148 H 164 H 254 H 11/02/17 10:23 POC Glucose 155 H Radiology Reviewed by me: Yes (Abd x-ray - contrast in colon, dilated SB loop) EKG Reviewed by me: Yes (Tele - SR in 70's) Phys Exam - Physical Examination Constitutional: NAD NGT in place HEENT: PERRLA, sclera anicteric, oral pharynx no lesions Neck: no nodes, no JVD, supple, full ROM diminished in bases Respiratory: no wheezing, no rhonchi, clear to auscultation bilateral S1, S2 Cardiovascular: RRR, no significant murmur, no rub, gallop TTP in LUQ, ALESSANDRA drains in place Gastrointestinal: soft, positive bowel sounds Musculoskeletal: no edema, pulses present Neurological: non-focal, normal sensation, moves all 4 limbs Psychiatric: normal affect, A&O x 3 Skin: no rash, normal turgor, cap refill <2 seconds Dx/Plan (1) Atrial fibrillation with RVR Code(s): I48.91 - UNSPECIFIED ATRIAL FIBRILLATION Status: Acute Comment: Cardizem gtt, rate controlled and converted to SR currently, IV Metoprolol since NPO status (2) SBO (small bowel obstruction) Code(s): K56.609 - UNSP INTESTNL OBST, UNSP TO PARTIAL VERSUS COMPLETE OBST Status: Acute Comment: NGT placed with LIWS, NPO, serial abd exams, pain control with Morphine Sulfate IV, ? need for surgical intervention given protracted course without significant improvement (3) Perforated sigmoid colon Code(s): K63.1 - PERFORATION OF INTESTINE (NONTRAUMATIC) Status: Acute Comment: Conservative mgmt, s/p laparoscopic washout with ALESSANDRA drain placement POD #8 (4) Sepsis Code(s): A41.9 - SEPSIS, UNSPECIFIED ORGANISM Status: Acute Qualifiers: Sepsis type: sepsis due to unspecified organism Qualified Code(s): A41.9 - Sepsis, unspecified organism Comment: Secondary to perforated diverticula, continue Zosyn (5) Acute diverticulitis of intestine Code(s): K57.92 - DVTRCLI OF INTEST, PART UNSP, W/O PERF OR ABSCESS W/O BLEED Status: Chronic Comment: recurrent, complicated, with microabscess/perforation , (6) Hypertension Code(s): I10 - ESSENTIAL (PRIMARY) HYPERTENSION Status: Chronic Qualifiers: Hypertension type: essential hypertension Qualified Code(s): I10 - Essential (primary) hypertension Comment: Labile, continue home BP regimen, Clonidine and Hydralazine PRN (7) Hyponatremia Code(s): E87.1 - HYPO-OSMOLALITY AND HYPONATREMIA Status: Acute Comment: stable continue to monitor, Na+ in am (8) Hypokalemia Code(s): E87.6 - HYPOKALEMIA Status: Acute Comment: KCL 20meq BID, K+ level in am, improved (9) Hypophosphatemia Code(s): E83.39 - OTHER DISORDERS OF PHOSPHORUS METABOLISM Status: Acute Comment: PO3 replacement, serial monitoring, resolved - Plan continue antibiotics, PT/OT, social media director, DVT proph w/SCDs Continue Zosyn IV -: Rate control measures with Cardizem and IV Metoprolol -: Pain control with Morphine Sulfate -: NGT with LIWS -: AM lab: CMP * TPN for nutritional support
--- NOTE | 2017-11-03 11:40 | RAD ---
ABDOMEN TWO VIEWS: History: Small bowel obstruction. Comparison: Prior day. FINDINGS: Enteric tube tip is at the gastric antrum. Multiple drains overlying the pelvis. There is contrast in the large bowel. There are mild distended loops of small bowel. IMPRESSION: Re-visualization of multiple loops of small bowel in the upper abdomen can be seen with ileus versus low grade obstruction. POS: [facility]
[2017-11-03] MEDS: HumaLOG 300 UNITS/3 ML VIAL SC PRN ×2 (13:06→18:07)
[2017-11-03] MEDS: Cepastat Lozenges 1 LOZ PO PRN (14:24)
[2017-11-03] MEDS: SODIUM ACETATE IV SCH (14:27)
[2017-11-03] MEDS: SODIUM CHLORIDE IV SCH (14:27)
[2017-11-03] MEDS: [UNRECOGNIZED DRUG - OTHER] IV SCH (14:27)
[2017-11-03] MEDS: hydrALAZINE 20 MG/ML VIAL SLOW IVP PRN (14:27)
[2017-11-03] MEDS: POTASSIUM ACETATE IV SCH (14:27)
--- NOTE | 2017-11-03 14:35 | PRG ---
DATE OF SERVICE: 11/03/2017 SUBJECTIVE: Ms. Carrera is very pleasant, well-nourished female, seen by Dr. Lizama in consultation, now followed in the office with asthma. She has undergone a laparotomy for perforated diverticulitis. She clinically appears to still have a n ileus in reviewing her bedside films of her being done when I saw her today. I will agree that rad iographically she still has an ileus. She says she is feeling a little better, but still does not feel well. She feels like she is w ater. Reviewing the monitor, she appears to be in atrial flutter. OBJECTIVE: VITAL SIGNS: Heart rates in the 90s, blood pressure is 117/51, earlier 119/59 at 10:00, respiratory rates in the teens. LUNGS: Clear anteriorly. CARDIOVASCULAR: Regular rhythm. S1 and S2 are normal. ABDOMEN: Soft, only mildly tender diffusely. EXTREMITIES: Without clubbing, cyanosis, or edema. NEUROLOGIC: Nonfocal. LABORATORY DATA: White count 15.7 yesterday, hemoglobin is 10.9. Sodium 143, potassium 3.7, chlorid e 107, bicarb 25, BUN 30, creatinine 0.77. IMPRESSION: 1. Atrial flutter. She has controlled rate with her atrial flutter at this point in time. 2. Status post laparotomy for perforated diverticulitis. 3. Asthma, clinically stable. We are happy to follow along with the other physicians caring for her.
[2017-11-03] MEDS ORDERED: Metoprolol Tartrate 5 MG/5 ML VIAL ONE (15:32)
[2017-11-03] MEDS ORDERED: Metoprolol Tartrate 5 MG/5 ML VIAL IVP SCH (16:15)
--- NOTE | 2017-11-03 17:12 | PDOC.PN ---
- Subjective Encounter Start Date: 11/03/17 Encounter Start Time: 17:00 Subjective: f/u for perforated diverticulitis and subsequent SBO with NGT placement. -: Developed A-fib RVR on current Cardizem and IV Metoprolol. Intermittent -: RVR noted. Still with abd discomfort and no flatus/BM - Objective Resuscitation Status: Resuscitation Status DNR:Do Not Resuscitate MAR Reviewed: Yes Vital Signs & Weight: Vital Signs (12 hours) Temp Pulse Pulse Pulse Resp BP BP 11/03/17 16:00 98.2 F 11/03/17 14:27 81 192/51 H 11/03/17 12:59 82 81 167/50 H 11/03/17 12:00 98.3 F 11/03/17 09:31 79 178/51 H 11/03/17 08:00 98.5 F 102 H 21 H 11/03/17 07:00 98.5 F BP Pulse Ox Pulse Ox Pulse Ox 11/03/17 16:00 11/03/17 14:27 11/03/17 12:59 154/57 H 96 96 11/03/17 12:00 11/03/17 09:31 96 11/03/17 08:00 99 11/03/17 07:00 Weight Admit Weight 138 lb 4.8 oz Weight 1.859 oz Most Recent Monitor Data Heart Rate from ECG 90 NIBP 144/47 NIBP BP-Mean 85 Respiration from ECG 20 SpO2 95 I&O: 11/02/17 11/03/17 11/04/17 06:59 06:59 06:59 Intake Total 2440.3 2935 30 Output Total 680 861 450 Balance 1760.3 2074 -420 Result Diagrams: 11/02/17 04:00 11/03/17 07:18 Additional Labs: Accuchecks 11/03/17 11/03/17 11/02/17 13:08 05:54 21:59 POC Glucose 198 H 148 H 164 H Radiology Reviewed by me: Yes (ABD x-ray - multiple dilated small bowel loops) EKG Reviewed by me: Yes (Tele - A-fib in low 100's) Phys Exam - Physical Examination Constitutional: NAD alert, responsive NGT in place HEENT: PERRLA, sclera anicteric Neck: no nodes, no JVD, supple, full ROM Respiratory: no wheezing, no rales, no rhonchi, clear to auscultation bilateral S1, S2 Cardiovascular: no significant murmur, no rub, irregular mild TTP in LUQ, ALESSANDRA drains in place x 2, distended Gastrointestinal: positive bowel sounds Musculoskeletal: no edema, pulses present Neurological: normal sensation, moves all 4 limbs Psychiatric: normal affect, A&O x 3 Skin: no rash, normal turgor, cap refill <2 seconds Dx/Plan (1) Atrial fibrillation with RVR Code(s): I48.91 - UNSPECIFIED ATRIAL FIBRILLATION Status: Acute Comment: Cardizem gtt, rate variable, IV Metoprolol 5mg q4h (2) SBO (small bowel obstruction) Code(s): K56.609 - UNSP INTESTNL OBST, UNSP TO PARTIAL VERSUS COMPLETE OBST Status: Acute Comment: NGT placed with LIWS, NPO, serial abd exams, pain control with Morphine Sulfate IV, ? need for surgical intervention given protracted course without significant improvement (3) Perforated sigmoid colon Code(s): K63.1 - PERFORATION OF INTESTINE (NONTRAUMATIC) Status: Acute Comment: Conservative mgmt, s/p laparoscopic washout with ALESSANDRA drain placement POD #8 (4) Sepsis Code(s): A41.9 - SEPSIS, UNSPECIFIED ORGANISM Status: Acute Qualifiers: Sepsis type: sepsis due to unspecified organism Qualified Code(s): A41.9 - Sepsis, unspecified organism Comment: Secondary to perforated diverticula, continue Zosyn (5) Acute diverticulitis of intestine Code(s): K57.92 - DVTRCLI OF INTEST, PART UNSP, W/O PERF OR ABSCESS W/O BLEED Status: Chronic Comment: recurrent, complicated, with microabscess/perforation , (6) Hypertension Code(s): I10 - ESSENTIAL (PRIMARY) HYPERTENSION Status: Chronic Qualifiers: Hypertension type: essential hypertension Qualified Code(s): I10 - Essential (primary) hypertension Comment: Labile, continue home BP regimen, Clonidine and Hydralazine PRN (7) Hyponatremia Code(s): E87.1 - HYPO-OSMOLALITY AND HYPONATREMIA Status: Acute Comment: stable continue to monitor, Na+ in am (8) Hypokalemia Code(s): E87.6 - HYPOKALEMIA Status: Acute Comment: KCL 20meq BID, K+ level in am, improved (9) Hypophosphatemia Code(s): E83.39 - OTHER DISORDERS OF PHOSPHORUS METABOLISM Status: Acute Comment: PO3 replacement, serial monitoring, resolved - Plan PT/OT, social service manager, respiratory therapy, out of bed/ambulate, DVT proph w/ SCDs Continue current Cardizem and Metoprolol -: NGT with LIWS -: Ativan 0.5mg IV q6h prn anxiety -: Continue Zosyn -: AM lab: CMP, CBC * .
[2017-11-03] MEDS: Lorazepam 2 MG/ML VIAL SLOW IVP PRN (20:11)
[2017-11-03] MEDS: Pantoprazole 40 MG VIAL IVP SCH (20:12)
[2017-11-04] MEDS: Metoprolol Tartrate 5 MG/5 ML VIAL IVP SCH ×6 (00:50→20:21)
--- NOTE | 2017-11-04 01:10 | PRG ---
DATE OF SERVICE: 11/03/2017 SUBJECTIVE: Arabella Carrera is a 76-year-old female. Ms. Carrera is a DNR. Heart rate 120, blood pres sure . Heart rate is better controlled on Cardizem drip. Abdominal x-rays today revealed persi stent air fluid levels. She has not had a bowel movement or passed gas. Gastric drainage 550 mL in the last 24 hours. OBJECTIVE: LUNGS: Clear to auscultation. CARDIAC: Regular rate and rhythm without murmur or gallop. ABDOMEN: Soft, nontender, mild distention and tympany. ASSESSMENT AND PLAN: Bowel obstruction. She continues to have some discomfort. Would plan laparosc opy, possible laparotomy tomorrow for bowel obstruction. Risk and benefits explained and she consent s. Discussed with family. We will watch her overnight if there is no improvement or x-rays do not i mprove, we will plan this tomorrow afternoon Monday.
[2017-11-04] MEDS: Piperacillin/Tazobactam 3.375 GM in Sodium Chloride 0.9% 100 ML IVPB SCH ×4 (03:45→20:21)
[2017-11-04 04:46] LABS: ALT (SGPT) 22 U/L (8-55); AST (SGOT) 20 U/L (5-34); Albumin 2.9 g/dL (3.4-4.8); Alkaline Phosphatase 77 U/L (40-150); Anion Gap 13 mmol/L (10-20); BUN (Urea Nitrogen) 30 mg/dL (9.8-20.1); Bilirubin, Total 0.4 mg/dL (0.2-1.2); Calc. Creatinine Clearance 0 mL/min (70-130); Calcium 9.6 mg/dL (7.8-10.44); Carbon Dioxide 25 mmol/L (23-31); Chloride 109 mmol/L (98-107); Estimated GFR-MDRD 87; Globulin 3.1 g/dL (2.4-3.5); Glucose 138 mg/dL (83-110); Potassium 3.7 mmol/L (3.5-5.1); Sodium 143 mmol/L (136-145)
[2017-11-04] MEDS: Cepastat Lozenges 1 LOZ PO PRN (05:25)
[2017-11-04] MEDS: Diltiazem HCl 125 MG, Admixture Fee 1 EACH in Sodium Chloride 0.9% 100 ML IVPB SCH ×2 (05:25→21:02)
[2017-11-04 05:33] LABS: Band 5 % (5-11); Hemoglobin 9.3 g/dL (12.0-16.0); Lymphocytes 12 % (21-51); MDiff Complete? YES; Mean Corpuscular HGB CONC 31.8 g/dL (32.0-36.0); Mean Corpuscular Hemoglobin 28.2 pg (27.0-31.0); Mean Corpuscular Volume 88.7 fL (78.0-98.0); Mean Platelet Volume 7.3 fL (7.4-10.4); Monocytes 7 % (0-10); Neutrophil 75 % (42-75); Platelet Count 450 thou/uL (130-400); RBC Distribution Width 13.5 % (11.5-14.5); Reactive Lymphocytes 1 % (0-10); Red Blood Cell (RBC) Count 3.31 mill/uL (4.20-5.40); White Blood Cell (WBC) Count 14.8 thou/uL (4.8-10.8)
[2017-11-04] MEDS: Levothyroxine 100 MCG SDV IVP SCH (08:29)
[2017-11-04] MEDS: Polyethylene Glycol 3350 17 GM Packet PO SCH (10:02)
[2017-11-04] MEDS: MESALAMINE 1.2 GM PO SCH (10:02)
[2017-11-04] MEDS: hydrALAZINE 20 MG/ML VIAL SLOW IVP PRN ×2 (10:12→12:54)
--- NOTE | 2017-11-04 11:05 | PDOC.CTH ---
Cardiology Progress Note - Subjective Feels better today. BM and passing gas yesterday. Still NPO. On IV CCB - Objective Vital Signs Temp Pulse BP 11/04/17 10:12 94 192/72 H 11/04/17 07:00 98.3 F 11/04/17 03:00 98.8 F Admit Weight 138 lb 4.8 oz Weight 119 lb 0.794 oz 11/03/17 11/04/17 11/05/17 06:59 06:59 06:59 Intake Total 2935 3014 60 Output Total 861 1050 100 Balance 2074 1964 -40 - Physical Examination General/Neuro: alert & oriented x3, NAD Neck: no JVD present Lungs: CTA, unlabored respirations Heart: other: (IRR) Abdomen: no HSM, NT/ND Extremities: + femoral B - Telemetry Telemetry Rhythm: IRR - Labs Result Diagrams: 11/04/17 03:50 11/04/17 03:50 Troponin/CKMB CK-MB (CK-2) 2.1 ng/mL (0-6.6) 10/19/17 18:26 Troponin I Less than 0.010 ng/mL (< 0.028) 10/19/17 18:26 - Assessment/Plan 1. Afib 2. s/p watchman 3. Afib ablation times 2 4. SBO Add IV dig Continue IV CCB given NPO status Add PO CCB when taking po No need for ACT given previous watchman
--- NOTE | 2017-11-04 11:36 | RAD ---
TWO VIEWS OF THE ABDOMEN: COMPARISON: 11/03/17. HISTORY: Followup small bowel obstruction. FINDINGS: Supine and left lateral decubitus views of the abdomen were performed and show contrast throughout th e colon from recent contrast examination. An NG tube is seen in the stomach. There appear to be loraine ins overlying the lower abdomen. Multiple contrast air levels are seen on the left lateral decubitus view in the colon. No dilated loops of small bowel are seen. IMPRESSION: Findings are not consistent with a bowel obstruction as contrast was passed into the colon. This can be secondary to partial small bowel obstruction. POS: [facility]
[2017-11-04] MEDS: HumaLOG 300 UNITS/3 ML VIAL SC PRN ×2 (11:41→16:59)
[2017-11-04] MEDS ORDERED: traMADol HCl 50 MG TAB PO PRN ×2 (12:17)
[2017-11-04] MEDS ORDERED: Acetaminophen 500 MG TAB PO PRN (12:17)
[2017-11-04] MEDS ORDERED: Digoxin 0.5 MG/2 ML AMP SLOW IVP SCH (12:30)
--- NOTE | 2017-11-04 12:51 | PRG ---
DATE OF SERVICE: 11/04/2017 SUBJECTIVE: Arabella Carrera is doing well today. She has had a large bowel movement. She feels better. Abdomen no longer hurts. Abdominal x-rays revealed some air fluid levels. Contrast still remains in her colon and there are still air fluid levels on decubitus portable view. She denies having any abdominal pain. OBJECTIVE: VITAL SIGNS: 192/72, heart rate 135. She is on a Cardizem drip on beta-blockers intravenous and is now being given digoxin IV. LUNGS: Clear to auscultation. CARDIAC: Sinus tachycardia. ABDOMEN: Soft, nontender, slight tympany. EXTREMITIES: Unremarkable. LABORATORY: White count 14, hemoglobin 9.3. Basic metabolic profile was normal. ASSESSMENT AND PLAN: Hopefully resolving small bowel obstruction. She does have a few air fluid lev els, but she has had a large bowel movement and she is hungry. I do not think a small bowel follow t hrough would help much with the residual contrast still in the colon. At this point, we will take th e course of removing her NG tube, start him on full liquids, and give her home medications as well as MiraLax. She is already up on a chair several times a day. Pending her clinical course, her diet w ill be advanced over the next 24-48 hours, hopefully operation can be avoided. Her ALESSANDRA drains are non functional, we will remove them.
--- NOTE | 2017-11-04 13:46 | PRG ---
DATE OF SERVICE: 11/04/2017 SERVICE: Pulmonary Medicine. INTERVAL HISTORY: The patient is doing fantastic from a respiratory standpoint. She actually had a bowel movement and was passing some gas this morning. She was able to get up into a chair. She is resisting working with physical therapy. She is quite anxious. Otherwise, there has been no interval change to her condition. She remains in atrial fibrillation, which is not under rate control currently. PHYSICAL EXAMINATION: VITAL SIGNS: Afebrile, pulse 94, blood pressure 164/70, respirations 22, saturation 96% on room air. GENERAL: The patient is awake and alert, in no apparent distress. LUNGS: Excellent air entry. There is no prolonged expiratory phase, wheezing, rhonchi or crackles. HEART: Tachycardic. Irregular. ABDOMEN: Tender to palpation. I do not really appreciate any guarding. There is no rebound tenderness currently. Bowel sounds are hypoactive. GENITOURINARY: No Beth catheter. NEUROLOGIC: Grossly nonfocal. LABORATORY DATA: WBC 14.8, hemoglobin 9.3, platelets 450,000. Creatinine 0.66. Basic metabolic profile and liver function studies are otherwise unremarkable. Peritoneal fluid culture is growing multiple species. ASSESSMENT: 1. Atrial fibrillation/flutter with variable conduction. 2. Severe sepsis secondary to perforated diverticulitis. 3. Laparotomy, postop day #9. 4. Asthma without acute exacerbation. DISCUSSION AND PLAN: Supportive measures will be continued. I will provide the patient a p.r.n. dose of Xanax in the evening time to see if this takes the edge off. We will get into a chair as much as tolerated. Hopefully, we will be able to challenge her guts now that she starting to have a bowel movement or two and it looks like there is good contrast moving through to her colon. I will leave this to Surgery, however. ANISA
[2017-11-04] MEDS: [UNRECOGNIZED DRUG - OTHER] IV SCH (15:26)
[2017-11-04] MEDS: SODIUM CHLORIDE IV SCH (15:26)
[2017-11-04] MEDS: SODIUM ACETATE IV SCH (15:26)
[2017-11-04] MEDS: POTASSIUM ACETATE IV SCH (15:26)
--- NOTE | 2017-11-04 16:06 | PDOC.PN ---
- Subjective Encounter Start Date: 11/04/17 Encounter Start Time: 16:00 Subjective: f/u for SBO s/p perforated diverticulitis requiring NGT. + large BM' s today -: with subsequent NGT/ALESSANDRA drain removal. Feeling much better. - Objective Resuscitation Status: Resuscitation Status DNR:Do Not Resuscitate MAR Reviewed: Yes Vital Signs & Weight: Vital Signs (12 hours) Temp Pulse Pulse Pulse Resp BP BP 11/04/17 12:55 94 11/04/17 12:54 160 H 227/95 H 11/04/17 12:00 98.0 F 11/04/17 10:12 94 192/72 H 11/04/17 10:09 139 H 109 H 184/81 H 11/04/17 08:00 98.3 F 94 22 H 11/04/17 07:00 98.3 F BP Pulse Ox Pulse Ox Pulse Ox 11/04/17 12:55 11/04/17 12:54 11/04/17 12:00 11/04/17 10:12 11/04/17 10:09 176/73 H 93 L 96 11/04/17 08:00 96 11/04/17 07:00 Weight Admit Weight 138 lb 4.8 oz Weight 119 lb 0.794 oz Most Recent Monitor Data Heart Rate from ECG 83 NIBP 190/62 NIBP BP-Mean 145 Respiration from ECG 24 SpO2 99 I&O: 11/03/17 11/04/17 11/05/17 06:59 06:59 06:59 Intake Total 2935 3014 420 Output Total 861 1050 500 Balance 2073 Result Diagrams: 11/04/17 03:50 11/04/17 03:50 Additional Labs: Accuchecks 11/04/17 11/03/17 11/03/17 11:37 20:42 18:08 POC Glucose 162 H 133 H 230 H Microbiology 10/24/17 21:40 Peritoneal Fluid Culture - Fluid Body Fluid Culture - Preliminary 10/24/17 21:40 Peritoneal Fluid Culture - Fluid Anaerobic Culture - Preliminary Escherichia coli Enterococcus avium Presumptive Noris albicans Anaerobic Gram Negative Scott 10/24/17 21:40 Peritoneal Fluid Culture - Fluid Body Fluid Culture - Preliminary 10/24/17 21:40 Peritoneal Fluid Culture - Fluid Gram Negative Scott Alpha-Hemolytic Streptococcus Presumptive Noris albicans Laboratory Tests 06/05/0110/24/17 10/25/17 04:49 04:49 08:26 WBC 19.5 H Plt Count Neutrophils % 77.6 H Neutrophils % (Manual) 80 H Sodium 133 L Potassium 3.4 L 10/26/17 10/28/17 10/30/17 09:51 06:07 04:55 WBC 13.5 H 13.5 H 18.9 H Plt Count 346 462 H Neutrophils % Neutrophils % (Manual) Sodium Potassium Radiology Reviewed by me: Yes (ABD x-ray - partial SBO, colon with contrast) EKG Reviewed by me: Yes (Tele - A-fib in 80's) Phys Exam - Physical Examination Constitutional: NAD HEENT: PERRLA, sclera anicteric, oral pharynx no lesions Neck: no nodes, no JVD, supple, full ROM Respiratory: no wheezing, no rales, no rhonchi, clear to auscultation bilateral S1, S2 Cardiovascular: no significant murmur, no rub, irregular Gastrointestinal: soft, non-tender, no distention, positive bowel sounds Musculoskeletal: no edema, pulses present Neurological: non-focal, normal sensation, moves all 4 limbs Psychiatric: normal affect, A&O x 3 Skin: no rash, normal turgor, cap refill <2 seconds Dx/Plan (1) Atrial fibrillation with RVR Code(s): I48.91 - UNSPECIFIED ATRIAL FIBRILLATION Status: Acute Comment: Cardizem gtt, rate variable, Cardizem po, Digoxin IV x 1 dose (2) SBO (small bowel obstruction) Code(s): K56.609 - UNSP INTESTNL OBST, UNSP TO PARTIAL VERSUS COMPLETE OBST Status: Acute Comment: NGT placed with LIWS, NPO, serial abd exams, pain control with Morphine Sulfate IV, ? need for surgical intervention given protracted course without significant improvement (3) Perforated sigmoid colon Code(s): K63.1 - PERFORATION OF INTESTINE (NONTRAUMATIC) Status: Acute Comment: Conservative mgmt, s/p laparoscopic washout with ALESSANDRA drain placement POD #9, ALESSANDRA drains removed (4) Sepsis Code(s): A41.9 - SEPSIS, UNSPECIFIED ORGANISM Status: Acute Qualifiers: Sepsis type: sepsis due to unspecified organism Qualified Code(s): A41.9 - Sepsis, unspecified organism Comment: Secondary to perforated diverticula, continue Zosyn, resolved (5) Acute diverticulitis of intestine Code(s): K57.92 - DVTRCLI OF INTEST, PART UNSP, W/O PERF OR ABSCESS W/O BLEED Status: Chronic Comment: recurrent, complicated, with microabscess/perforation , (6) Hypertension Code(s): I10 - ESSENTIAL (PRIMARY) HYPERTENSION Status: Chronic Qualifiers: Hypertension type: essential hypertension Qualified Code(s): I10 - Essential (primary) hypertension Comment: Labile, continue home BP regimen, Clonidine and Hydralazine PRN (7) Hyponatremia Code(s): E87.1 - HYPO-OSMOLALITY AND HYPONATREMIA Status: Acute Comment: stable continue to monitor, Na+ in am (8) Hypokalemia Code(s): E87.6 - HYPOKALEMIA Status: Acute Comment: KCL 20meq BID, K+ level in am, improved (9) Hypophosphatemia Code(s): E83.39 - OTHER DISORDERS OF PHOSPHORUS METABOLISM Status: Acute Comment: PO3 replacement, serial monitoring, resolved - Plan plan discussed w/ family, continue antibiotics, 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
[2017-11-04] MEDS: Lorazepam 2 MG/ML VIAL SLOW IVP PRN (20:24)
[2017-11-05] MEDS: Piperacillin/Tazobactam 3.375 GM in Sodium Chloride 0.9% 100 ML IVPB SCH ×3 (04:30→15:19)
[2017-11-05] MEDS: Metoprolol Tartrate 5 MG/5 ML VIAL IVP SCH ×2 (04:31→04:32)
[2017-11-05 04:41] LABS: ALT (SGPT) 40 U/L (8-55); AST (SGOT) 43 U/L (5-34); Alkaline Phosphatase 83 U/L (40-150); Anion Gap 13 mmol/L (10-20); BUN (Urea Nitrogen) 31 mg/dL (9.8-20.1); Bilirubin, Total 0.4 mg/dL (0.2-1.2); Calc. Creatinine Clearance 58 mL/min (70-130); Calcium 9.2 mg/dL (7.8-10.44); Carbon Dioxide 24 mmol/L (23-31); Chloride 106 mmol/L (98-107); Estimated GFR-MDRD 81; Glucose 92 mg/dL (83-110); Potassium 3.7 mmol/L (3.5-5.1); Sodium 139 mmol/L (136-145)
[2017-11-05] MEDS ORDERED: HYDROcodone/Acetaminophen 10/325 mg Tablet PO PRN (06:26)
[2017-11-05] MEDS ORDERED: Potassium Chloride 20 MEQ TAB PO SCH (06:30)
[2017-11-05] MEDS: Polyethylene Glycol 3350 17 GM Packet PO SCH (10:06)
[2017-11-05] MEDS: Metoprolol Tartrate 25 MG TAB PO SCH ×2 (10:06→20:24)
[2017-11-05] MEDS: Thyroid 60 MG TAB PO SCH (10:07)
[2017-11-05] MEDS: MESALAMINE 1.2 GM PO SCH (10:14)
--- NOTE | 2017-11-05 10:43 | PRG ---
DATE OF SERVICE: 11/05/2017 SERVICE: Pulmonary Medicine. INTERVAL HISTORY: Overnight, the patient had multiple bowel movements. She is eating just fine. She is tolerating all p.o. Otherwise, there has been no interval change to her condition. Her heart rate is under good control and she has excellent blood pressure. PHYSICAL EXAMINATION: VITAL SIGNS: Afebrile, pulse 67, blood pressure 158/44, respirations 21, saturation 96% on room air. GENERAL: The patient is awake and alert, in no apparent distress. LUNGS: Excellent air entry. I do not appreciate prolonged expiratory phase, wheezing, rhonchi or crackles. HEART: Normal rate, regular. ABDOMEN: Soft, nontender, nondistended. Bowel sounds are positive. MUSCULOSKELETAL: No cyanosis or clubbing. There is no pitting in the bilateral lower extremities. NEUROLOGIC: Grossly nonfocal. LABORATORY DATA: Basic metabolic profile is essentially unremarkable, except for potassium of 3.7. Liver function studies are also unremarkable. Creatinine 0.70, bicarbonate 25. Multiple organisms are growing in the peritoneal fluid. ASSESSMENT: 1. Atrial fibrillation/atrial flutter with variable conduction. 2. Severe sepsis secondary to perforated diverticulitis. 3. Laparotomy, postop day #10. 4. Asthma without acute issue. DISCUSSION AND PLAN: At this point, the patient is stable for transition to the telemetry unit. We will mobilize the patient as much as tolerated. Now that she is tolerating p.o., we will be able to wean the TPN away. Dr. Thomson will resume care in the morning. ANISA
[2017-11-05 11:24] LABS: #Basophils 0.1 thou/uL (0.0-0.2); #Eosinphils 0.5 thou/uL (0.0-0.7); #Monocytes 0.9 thou/uL (0.11-0.59); #Neutrophils 8.9 thou/uL (1.40-6.50); %Basophils 0.7 % (0.0-1.0); %Eosinophils 3.9 % (0.0-10.0); %Lymphocytes 16.5 % (21.0-51.0); %Monocytes 7.4 % (0.0-10.0); %Neutrophils 71.6 % (42.0-75.0); Hemoglobin 8.9 g/dL (12.0-16.0); Mean Corpuscular HGB CONC 33.2 g/dL (32.0-36.0); Mean Corpuscular Hemoglobin 29.3 pg (27.0-31.0); Mean Corpuscular Volume 88.1 fL (78.0-98.0); Mean Platelet Volume 6.8 fL (7.4-10.4); Platelet Count 401 thou/uL (130-400); RBC Distribution Width 13.4 % (11.5-14.5); Red Blood Cell (RBC) Count 3.02 mill/uL (4.20-5.40); White Blood Cell (WBC) Count 12.4 thou/uL (4.8-10.8)
--- NOTE | 2017-11-05 12:06 | PDOC.CTH ---
Cardiology Progress Note - Subjective increase in BM and flatus. States though intermittent blood noted in stool. No palpitations present. - Objective Vital Signs Temp Pulse Resp 11/05/17 11:00 97.8 F 11/05/17 08:00 98.3 F 98 25 H Admit Weight 138 lb 4.8 oz Weight 119 lb 0.794 oz 11/04/17 11/05/17 11/06/17 06:59 06:59 06:59 Intake Total 3014 3427.1 600 Output Total 1050 750 150 Balance 1964 2677.1 450 - Physical Examination General/Neuro: alert & oriented x3, NAD Neck: no JVD present Lungs: CTA, unlabored respirations Heart: other: (irr) Abdomen: other: (dec BS but present) Extremities: + femoral B - Labs Result Diagrams: 11/05/17 11:17 11/05/17 03:47 Troponin/CKMB CK-MB (CK-2) 2.1 ng/mL (0-6.6) 10/19/17 18:26 Troponin I Less than 0.010 ng/mL (< 0.028) 10/19/17 18:26 - Assessment/Plan 1. Afib 2. s/p watchman 3. Afib ablation times 2 4. SBO CV status stable Pt given po cardizem yesterday will schedule cardizem and titrate done IV CCB No ACT given watchman placment
[2017-11-05] MEDS ORDERED: Pantoprazole 40 MG VIAL IVP SCH (12:15)
--- NOTE | 2017-11-05 12:50 | PDOC.PN ---
- Subjective Encounter Start Date: 11/05/17 Encounter Start Time: 12:40 Subjective: f/u for SBO improved with multiple BM's but noticed several bloody -: stools per pt and nursing. No anticoagulation currently. - Objective Resuscitation Status: Resuscitation Status DNR:Do Not Resuscitate MAR Reviewed: Yes Vital Signs & Weight: Vital Signs (12 hours) Temp Pulse Resp 11/05/17 11:00 97.8 F 11/05/17 08:00 98.3 F 98 25 H Weight Admit Weight 138 lb 4.8 oz Weight 119 lb 0.794 oz Most Recent Monitor Data Heart Rate from ECG 77 NIBP 163/55 NIBP BP-Mean 127 Respiration from ECG 25 SpO2 96 I&O: 11/04/17 11/05/17 11/06/17 06:59 06:59 06:59 Intake Total 3014 3427.1 600 Output Total 1050 750 150 Balance 1964 2677.1 450 Result Diagrams: 11/05/17 11:17 11/05/17 03:47 Additional Labs: Accuchecks 11/05/17 11/04/17 11/04/17 10:06 23:49 23:19 POC Glucose 115 H 193 H 197 H 11/04/17 17:00 POC Glucose 188 H Microbiology 10/24/17 21:40 Peritoneal Fluid Culture - Fluid Body Fluid Culture - Preliminary 10/24/17 21:40 Peritoneal Fluid Culture - Fluid Anaerobic Culture - Preliminary Escherichia coli Enterococcus avium Presumptive Noris albicans Anaerobic Gram Negative Scott 10/24/17 21:40 Peritoneal Fluid Culture - Fluid Body Fluid Culture - Preliminary 10/24/17 21:40 Peritoneal Fluid Culture - Fluid Gram Negative Scott Alpha-Hemolytic Streptococcus Presumptive Noris albicans Laboratory Tests 10/24/17 10/24/17 10/25/17 04:49 04:49 08:26 WBC 19.5 H Hgb Plt Count Neutrophils % 77.6 H Neutrophils % (Manual) 80 H Sodium 133 L Potassium 3.4 L 10/26/17 10/28/17 10/30/17 09:51 06:07 04:55 WBC 13.5 H 13.5 H 18.9 H Hgb Plt Count 346 462 H Neutrophils % Neutrophils % (Manual) Sodium Potassium 11/01/17 11/02/17 11/04/17 22:34 04:00 03:50 WBC 15.7 H 14.8 H Hgb 11.5 L 10.9 L 9.3 L Plt Count 415 H 423 H 450 H Neutrophils % Neutrophils % (Manual) Sodium Potassium EKG Reviewed by me: Yes (Tele - A-fib in 70's) Phys Exam - Physical Examination Constitutional: NAD HEENT: PERRLA, sclera anicteric, oral pharynx no lesions Neck: no nodes, no JVD, supple, full ROM Respiratory: no wheezing, no rales, no rhonchi, clear to auscultation bilateral S1, S2 Cardiovascular: no significant murmur, no rub, irregular Gastrointestinal: soft, non-tender, no distention, positive bowel sounds Musculoskeletal: no edema, pulses present Neurological: non-focal, normal sensation, moves all 4 limbs Psychiatric: normal affect, A&O x 3 Skin: no rash, normal turgor, cap refill <2 seconds Dx/Plan (1) Atrial fibrillation with RVR Code(s): I48.91 - UNSPECIFIED ATRIAL FIBRILLATION Status: Acute Comment: Cardizem gtt, rate variable, Cardizem 180mg daily, Digoxin IV x 1 dose, Metoprolol 25mg BID (2) SBO (small bowel obstruction) Code(s): K56.609 - UNSP INTESTNL OBST, UNSP TO PARTIAL VERSUS COMPLETE OBST Status: Acute Comment: Resolving with current measures, NGT d/c'd (3) Perforated sigmoid colon Code(s): K63.1 - PERFORATION OF INTESTINE (NONTRAUMATIC) Status: Acute Comment: Conservative mgmt, s/p laparoscopic washout with ALESSANDRA drain placement POD #10, ALESSANDRA drains removed (4) Sepsis Code(s): A41.9 - SEPSIS, UNSPECIFIED ORGANISM Status: Acute Qualifiers: Sepsis type: sepsis due to unspecified organism Qualified Code(s): A41.9 - Sepsis, unspecified organism Comment: Secondary to perforated diverticula, continue Zosyn, resolved (5) Acute diverticulitis of intestine Code(s): K57.92 - DVTRCLI OF INTEST, PART UNSP, W/O PERF OR ABSCESS W/O BLEED Status: Chronic Comment: recurrent, complicated, with microabscess/perforation , (6) Hypertension Code(s): I10 - ESSENTIAL (PRIMARY) HYPERTENSION Status: Chronic Qualifiers: Hypertension type: essential hypertension Qualified Code(s): I10 - Essential (primary) hypertension Comment: Labile, continue home BP regimen, Clonidine and Hydralazine PRN (7) Hyponatremia Code(s): E87.1 - HYPO-OSMOLALITY AND HYPONATREMIA Status: Acute Comment: stable continue to monitor, Na+ in am (8) Hypokalemia Code(s): E87.6 - HYPOKALEMIA Status: Acute Comment: KCL 20meq BID, K+ level in am, improved (9) Hypophosphatemia Code(s): E83.39 - OTHER DISORDERS OF PHOSPHORUS METABOLISM Status: Acute Comment: PO3 replacement, serial monitoring, resolved (10) GI bleed Code(s): K92.2 - GASTROINTESTINAL HEMORRHAGE, UNSPECIFIED Status: Acute Comment: Suspect multifactorial given recent perforated diverticulitis and SBO with laparoscopy and wash out, GI consult, serial H/H, avoid anticoagulation and ASA - Plan continue antibiotics, PT/OT, social worker delinquency prevention, DVT proph w/SCDs Continue serial H/H monitoring -: Consult GI service -: Avoid anticoagulation and NSAIDs -: Clear liquids -: Continue rate control measures, Diltiazem, Metoprolol * AM lab: CMP, CBC, Mg++, PO3
[2017-11-05] MEDS: [UNRECOGNIZED DRUG - OTHER] IV SCH (15:05)
[2017-11-05] MEDS: SODIUM ACETATE IV SCH (15:05)
[2017-11-05] MEDS: SODIUM CHLORIDE IV SCH (15:05)
[2017-11-05] MEDS: POTASSIUM ACETATE IV SCH (15:05)
[2017-11-05] MEDS: cloNIDine 0.3 MG TAB PO SCH ×2 (15:19→20:24)
--- NOTE | 2017-11-05 18:37 | PRG ---
DATE OF SERVICE: 11/05/2017 SUBJECTIVE: Ms. Carrera is being moved from ICU to [facility]. She has had diarrhea stools with moderate bl ood in it. 99.3 degrees, 81, 16, 190/41. The patient remains hemodynamically stable. Hemoglobin is 8.9, decreased from 9.3 yesterday and 10.9 the day before. Basic metabolic profile is normal. 01/13, Dr. Tello performed a colonoscopy noting diverticulosis, multiple polyps removed. , EGD was performed with a hiatal hernia, normal duodenum, mild atrophic gastritis, coffee ground st ain heme mucosa. No other ulcerations or erosions. OBJECTIVE: LUNGS: Clear to auscultation. CARDIAC: Regular rate and rhythm without murmur or gallop. ABDOMEN: Soft, nontender. ALESSANDRA has been removed. EXTREMITIES: Unremarkable. ASSESSMENT AND PLAN: Bloody stools. We will continue proton pump inhibitors. Continue diet. Follo w her hemoglobins. Hopefully, this will resolve. If not, Gastroenterology has been consulted and we will consider endoscopy.
[2017-11-05] MEDS: busPIRone HCl 10 MG TAB PO SCH (20:25)
[2017-11-05] MEDS: Cepastat Lozenges 1 LOZ PO PRN (20:25)
[2017-11-05] MEDS: Lorazepam 0.5 MG TAB PO PRN (20:33)
[2017-11-05] MEDS: Diltiazem HCl 125 MG, Admixture Fee 1 EACH in Sodium Chloride 0.9% 100 ML IVPB SCH (20:42)
--- NOTE | 2017-11-06 02:16 | CON ---
DATE OF CONSULTATION: 11/05/2017 REFERRING PHYSICIAN: Darrick Chua M.D. REASON FOR CONSULTATION: Hematochezia. HISTORY OF PRESENT ILLNESS: Ms. Arabella Carrera is a very pleasant 76-year-old female with a h istory of recurrent diverticulitis over the years. The patient had a colonoscopy in the past. She d oes see Dr. 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 She had a colonoscopy in the all of 2016 and was found to have diffuse colonic diverticular disease. The patient has had recurren t diverticulitis over the years. The patient presented to hospital approximately 2 weeks ago with ab dominal pain and was found to have free air in the abdomen. She underwent laparotomy by Dr. Gary Alfonso and there was no definite area of perforation seen. She apparently had some abscess in the a bdomen, which was drained and she had a drain placement, which was taken out subsequently. The patie nt has done well after surgery. She is on full liquid diet. Plans are being made to get out of the ICU to regular floor today; however, this morning she had an episode of hematochezia. The bleeding w as bright red with passage of blood clots. She has had 3 bloody stools. She also complained of abdo lyly cramping off and on. No nausea, no vomiting. Her blood count this morning has dropped down to 8.9 from 9.3; two days ago, it was 10.9. The patient has had 3 bloody stools and no more stools aft er that. She says she has abdominal cramping off and on, feeling going to the bathroom and that is w hy she passed the bright red blood and also blood clots. There is no nausea, no vomiting. MEDICAL ILLNESSES: 1. Recurrent diverticulitis with some perforation, but no definitive persistent laparotomy. 2. History of atrial fibrillation with previous Watchman procedure. 3. Hyperlipidemia. 4. Hypothyroidism. 5. Hypertension. 6. Osteoarthritis. 7. Sjogren's syndrome. 8. 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 SURGERIES: Hysterectomy, thyroidectomy, EGD and colonoscopy in 2017, and also has had laparotomy wit h drain placed over the abscess. MEDICATIONS: List reviewed. PHYSICAL EXAMINATION: GENERAL: The patient appears very comfortable. She is awake, alert, and oriented to time and place. VITAL SIGNS: She is afebrile. Her pulse is 80, blood pressure is slightly high at 220/95. HEENT: Conjunctivae clear. CARDIOVASCULAR SYSTEM: First and second heart sounds normal. LUNGS: Clear to auscultation. ABDOMEN: Soft. Adomen is nondistended. She is minimally tender over the left lower quadrant and al so over the lower abdomen. There is no rebound or guarding. Overall, the exam is very benign. LABORATORY DATA: Did show mild drop in blood count to 8.9 today. I would expect the blood pressure drop down further with her recent bleeding. CLINICAL IMPRESSION: Gastrointestinal bleeding, most likely from diverticular disease. She had a pr evious colonoscopy in the fall of 2016 did show diffuse colonic diverticular disease. RECOMMENDATIONS: 1. Transfuse 1 unit of packed RBCs. 2. Serial H and H. If the bleeding persists, obtain a tagged RBC scan. 3. Dr. Aibodun Tello will assume care from tomorrow.
[2017-11-06 05:04] LABS: #Basophils 0.1 thou/uL (0.0-0.2); #Eosinphils 0.9 thou/uL (0.0-0.7); #Lymphocytes 3.2 thou/uL (1.20-3.40); #Monocytes 1.1 thou/uL (0.11-0.59); #Neutrophils 9.5 thou/uL (1.40-6.50); %Basophils 0.4 % (0.0-1.0); %Monocytes 7.6 % (0.0-10.0); Hemoglobin 9.8 g/dL (12.0-16.0); Mean Corpuscular HGB CONC 33.6 g/dL (32.0-36.0); Mean Corpuscular Hemoglobin 28.9 pg (27.0-31.0); Mean Corpuscular Volume 86.2 fL (78.0-98.0); Mean Platelet Volume 7.4 fL (7.4-10.4); Platelet Count 390 thou/uL (130-400); RBC Distribution Width 13.8 % (11.5-14.5); White Blood Cell (WBC) Count 14.8 thou/uL (4.8-10.8)
[2017-11-06 05:15] LABS: ALT (SGPT) 45 U/L (8-55); AST (SGOT) 33 U/L (5-34); Albumin 2.5 g/dL (3.4-4.8); Alkaline Phosphatase 70 U/L (40-150); Anion Gap 10 mmol/L (10-20); BUN (Urea Nitrogen) 32 mg/dL (9.8-20.1); Bilirubin, Total 0.4 mg/dL (0.2-1.2); Calc. Creatinine Clearance 60 mL/min (70-130); Calcium 8.5 mg/dL (7.8-10.44); Carbon Dioxide 24 mmol/L (23-31); Chloride 105 mmol/L (98-107); Estimated GFR-MDRD 84; Globulin 2.4 g/dL (2.4-3.5); Glucose 77 mg/dL (83-110); Magnesium 1.6 mg/dL (1.6-2.6); Phosphorus 3.7 mg/dL (2.3-4.7); Potassium 3.7 mmol/L (3.5-5.1); Protein, Total 4.9 g/dL (6.0-8.3); Sodium 135 mmol/L (136-145)
[2017-11-06] MEDS: Folic Acid 1 MG TAB PO SCH (09:28)
[2017-11-06] MEDS: cloNIDine 0.3 MG TAB PO SCH ×3 (09:28→20:29)
[2017-11-06] MEDS: Pantoprazole 40 MG VIAL IVP SCH (09:29)
[2017-11-06] MEDS: Metoprolol Tartrate 25 MG TAB PO SCH ×2 (09:29→20:29)
[2017-11-06] MEDS: predniSONE 5 MG TAB PO SCH (09:30)
[2017-11-06] MEDS: Saccharomyces boulardii 250 MG CAP PO SCH (09:30)
[2017-11-06] MEDS: Polyethylene Glycol 3350 17 GM Packet PO SCH (09:30)
[2017-11-06] MEDS: Thyroid 60 MG TAB PO SCH (09:31)
[2017-11-06] MEDS: MESALAMINE 1.2 GM PO SCH ×2 (09:35→17:32)
--- NOTE | 2017-11-06 11:31 | PDOC.PN ---
- Subjective Encounter Start Date: 11/06/17 Encounter Start Time: 11:25 Subjective: f/u for GI bleed transfused 1u PRBC's 11/05/17. Some blood spots in stool -: today but not the same volume as day before. No abd pain today. -: Nsg reports pt back in sinus rhythm - Objective Resuscitation Status: Resuscitation Status DNR:Do Not Resuscitate MAR Reviewed: Yes Vital Signs & Weight: Vital Signs (12 hours) Temp Pulse Pulse Pulse Resp BP BP 11/06/17 09:28 150/47 H 11/06/17 09:19 120 H 138 H 154/47 H 11/06/17 07:25 98.3 F 103 H 27 H 11/06/17 04:00 99.0 F 76 20 11/06/17 00:00 98.7 F 77 18 BP Pulse Ox Pulse Ox 11/06/17 09:28 11/06/17 09:19 99 11/06/17 07:25 137/42 L 98 11/06/17 04:00 154/44 H 96 11/06/17 00:00 127/33 L 97 Weight Admit Weight 138 lb 4.8 oz Weight 136 lb 3.2 oz Most Recent Monitor Data Heart Rate from ECG 79 NIBP 166/48 NIBP BP-Mean 99 Respiration from ECG 24 SpO2 97 I&O: 11/05/17 11/06/17 11/07/17 06:59 06:59 06:59 Intake Total 3427.1 2976.5 Output Total 750 850 Balance 2677.1 2126.5 Result Diagrams: 11/06/17 03:30 11/06/17 03:30 Additional Labs: Accuchecks 11/06/17 11/05/17 11/05/17 04:49 21:53 15:21 POC Glucose 103 98 98 EKG Reviewed by me: Yes (Tele - SR in 80's) Phys Exam - Physical Examination Constitutional: NAD HEENT: PERRLA, sclera anicteric, oral pharynx no lesions Neck: no nodes, no JVD, supple, full ROM Respiratory: no wheezing, no rales, no rhonchi, clear to auscultation bilateral S1, S2 Cardiovascular: RRR, no significant murmur, no rub, gallop Gastrointestinal: soft, non-tender, no distention, positive bowel sounds Musculoskeletal: no edema, pulses present Neurological: non-focal, normal sensation, moves all 4 limbs Psychiatric: normal affect, A&O x 3 Skin: no rash, normal turgor, cap refill <2 seconds Dx/Plan (1) GI bleed Code(s): K92.2 - GASTROINTESTINAL HEMORRHAGE, UNSPECIFIED Status: Acute Comment: Suspect multifactorial given recent perforated diverticulitis and SBO with laparoscopy and wash out, GI consult, serial H/H, avoid anticoagulation and ASA, s/p 1u PRBC's (2) Atrial fibrillation with RVR Code(s): I48.91 - UNSPECIFIED ATRIAL FIBRILLATION Status: Acute Comment: Converted to SR, Cardizem gtt, Cardizem 180mg daily, Digoxin IV x 1 dose, Metoprolol 25mg BID (3) SBO (small bowel obstruction) Code(s): K56.609 - UNSP INTESTNL OBST, UNSP TO PARTIAL VERSUS COMPLETE OBST Status: Acute Comment: Resolving with current measures, NGT d/c'd (4) Perforated sigmoid colon Code(s): K63.1 - PERFORATION OF INTESTINE (NONTRAUMATIC) Status: Acute Comment: Conservative mgmt, s/p laparoscopic washout with ALESSANDRA drain placement POD #10, ALESSANDRA drains removed (5) Sepsis Code(s): A41.9 - SEPSIS, UNSPECIFIED ORGANISM Status: Acute Qualifiers: Sepsis type: sepsis due to unspecified organism Qualified Code(s): A41.9 - Sepsis, unspecified organism Comment: Secondary to perforated diverticula, continue Zosyn, resolved (6) Acute diverticulitis of intestine Code(s): K57.92 - DVTRCLI OF INTEST, PART UNSP, W/O PERF OR ABSCESS W/O BLEED Status: Chronic Comment: recurrent, complicated, with microabscess/perforation , (7) Hypertension Code(s): I10 - ESSENTIAL (PRIMARY) HYPERTENSION Status: Chronic Qualifiers: Hypertension type: essential hypertension Qualified Code(s): I10 - Essential (primary) hypertension Comment: Labile, continue home BP regimen, Clonidine and Hydralazine PRN (8) Hyponatremia Code(s): E87.1 - HYPO-OSMOLALITY AND HYPONATREMIA Status: Acute Comment: stable continue to monitor, Na+ in am (9) Hypokalemia Code(s): E87.6 - HYPOKALEMIA Status: Acute Comment: Resolved (10) Hypophosphatemia Code(s): E83.39 - OTHER DISORDERS OF PHOSPHORUS METABOLISM Status: Acute Comment: PO3 replacement, serial monitoring, resolved - Plan 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
--- NOTE | 2017-11-06 12:17 | PDOC.CTH ---
<Leanna Monge - Last Filed: 11/06/17 12:17> Cardiology Progress Note - Subjective The pt seen and examined. No overnight events. No cardiac complaints. She no longer has CP or discomfort in her chest. - Objective Vital Signs Temp Pulse Pulse Pulse Resp BP BP 11/06/17 12:05 98.4 F 79 11/06/17 09:28 150/47 H 11/06/17 09:19 120 H 138 H 154/47 H 11/06/17 07:25 98.3 F 103 H 27 H 11/06/17 04:00 99.0 F 76 20 BP Pulse Ox Pulse Ox 11/06/17 12:05 111/48 L 98 11/06/17 09:28 11/06/17 09:19 99 11/06/17 07:25 137/42 L 98 11/06/17 04:00 154/44 H 96 Admit Weight 138 lb 4.8 oz Weight 136 lb 3.2 oz 11/05/17 11/06/17 11/07/17 06:59 06:59 06:59 Intake Total 3427.1 2976.5 Output Total 750 850 Balance 2677.1 2126.5 - Physical Examination General/Neuro: alert & oriented x3 Neck: no JVD present Lungs: other: (diminished at bases) Heart: RRR, other: Abdomen: soft Extremities: other: (1+ pitting edema) - Telemetry Telemetry Rhythm: SR 80s - Labs Result Diagrams: 11/06/17 03:30 11/06/17 03:30 Troponin/CKMB CK-MB (CK-2) 2.1 ng/mL (0-6.6) 10/19/17 18:26 Troponin I Less than 0.010 ng/mL (< 0.028) 10/19/17 18:26 - Assessment/Plan 1. Paroxysmal Afib with s/p watchman placement in 01/2016 and S/p PVAI in 2011 and 01/2015 - Converted back to SR around 0610 on 11/06/17; On Diltiazem 5mg /h; cont. IV cardizem due to NPO; No OAC due to s/p Watchman's device and GI bleed 2. GI bleed 2/2 Suspect diverticulitis with s/p 1u PRBC tx and and S/p EGD and Colonoscopy with multiple polypes removed - cont. Some blood spots in stool; NPO and receiving TPN; managed by GI 3. SBO with Perforated sigmoid colon with s/p laparoscopic washout - managed by GI 4. HTN - stable with current medication; cont. to monitor 5. COPD - stable 6. Lt Carotid stenosis - Carotid doppler study in 09/2017 showed 50-60% stenosis in Lt ICA; possible CTA carotid as outpt. 7. Hx of Sjogren's syndrome - stable 8. Hypothyroidism - managed by PCP MAR reviewed Review of Systems - Review of Systems Constitutional: reports: no symptoms reported EENTM: reports: no symptoms reported Respiratory: reports: no symptoms reported Cardiac (ROS): reports: no symptoms reported ABD/GI: reports: no symptoms reported : reports: no symptoms reported Musculoskeletal: reports: no symptoms reported <Susan Mays - Last Filed: 11/06/17 17:42> Cardiology Progress Note - Objective Vital Signs Temp Pulse Pulse Pulse Resp BP BP 11/06/17 15:57 131/47 L 11/06/17 15:39 97.7 F 86 17 11/06/17 12:05 98.4 F 79 11/06/17 09:28 150/47 H 11/06/17 09:19 120 H 138 H 154/47 H 11/06/17 08:00 98.3 F 103 H 27 H 11/06/17 07:25 98.3 F 103 H 27 H BP Pulse Ox Pulse Ox 11/06/17 15:57 11/06/17 15:39 131/47 L 97 11/06/17 12:05 111/48 L 98 11/06/17 09:28 11/06/17 09:19 99 11/06/17 08:00 98 11/06/17 07:25 137/42 L 98 Admit Weight 138 lb 4.8 oz Weight 136 lb 3.2 oz 11/05/17 11/06/17 11/07/17 06:59 06:59 06:59 Intake Total 3427.1 2976.5 Output Total 750 850 Balance 2677.1 2126.5 - Labs Result Diagrams: 11/06/17 03:30 11/06/17 03:30 Troponin/CKMB CK-MB (CK-2) 2.1 ng/mL (0-6.6) 10/19/17 18:26 Troponin I Less than 0.010 ng/mL (< 0.028) 10/19/17 18:26 - Assessment/Plan Pt. seen and eval. by me. I agree with the A/P by the PERSONNEL DIRECTOR. Chest clear. RRR. She has remained in NSR since this AM.
[2017-11-06] MEDS: SODIUM CHLORIDE IV SCH (15:54)
[2017-11-06] MEDS: POTASSIUM ACETATE IV SCH (15:54)
[2017-11-06] MEDS: [UNRECOGNIZED DRUG - OTHER] IV SCH (15:54)
[2017-11-06] MEDS: SODIUM ACETATE IV SCH (15:54)
--- NOTE | 2017-11-06 16:13 | PRG ---
DATE OF SERVICE: 11/06/2017 SUBJECTIVE: Debi has no complaints except intermittent gas pain. OBJECTIVE: VITAL SIGNS: He is afebrile, heart rate 79, blood pressure 150/47. Oximetry is 98 on room air. LUNGS: Clear. HEART: Regular rhythm. ABDOMEN: Soft, still mildly tender. LABORATORY DATA: White count 14.8, hemoglobin 9.8, platelets 390. Sodium 135, potassium 3.7, chlori de 105, bicarbonate 24, BUN 32, creatinine 1.6. Intake and output is positive 2125. She is still on TPN. IMPRESSION: 1. Status post laparotomy. 2. Bloody stools. Gastroenterology is following now. 3. Perineuritis secondary to perforated viscus. 4. Asthma, clinically stable. PLAN: Continue supportive care, nutritional support, antimicrobial therapy.
[2017-11-06] MEDS: HumaLOG 300 UNITS/3 ML VIAL SC PRN (17:32)
[2017-11-06] MEDS: Cepastat Lozenges 1 LOZ PO PRN ×2 (17:33→20:34)
[2017-11-06] MEDS: Diltiazem HCl 125 MG, Admixture Fee 1 EACH in Sodium Chloride 0.9% 100 ML IVPB SCH (17:33)
[2017-11-06] MEDS: busPIRone HCl 10 MG TAB PO SCH (20:30)
--- NOTE | 2017-11-06 20:46 | PRG ---
DATE OF SERVICE: 11/06/2017 SUBJECTIVE: Arabella Carrera is feeling better. She is not having nausea or vomiting. She is tolerating her full liquids. She is on a Cardizem drip. She is in sinus rhythm now. She has had some mild ab dominal pain, left upper quadrant, but otherwise unremarkable. OBJECTIVE: VITAL SIGNS: Blood pressure 131/47, respiratory rate 17, heart rate 86. LUNGS: Clear to auscultation. CARDIAC: Regular rate and rhythm without murmur or gallop. ABDOMEN: Soft, nontender. Laparoscopic wounds well healed. LABORATORY DATA: White count 14, hemoglobin 9.8. Sodium 135, potassium 3.7, BUN 32, creatinine 0.68 . ASSESSMENT AND PLAN: Resolving diverticulitis. Antibiotics have been discontinued as she has had ad equate antibiotic treatment. Bowel obstruction has resolved and she is tolerating her diet. We will advance her to a regular diet. Her diarrhea has improved. Cultures from her peritoneal fluid E. co li, Enterococcus, Clostridium, anaerobic, gram-negative rods. The patient is currently doing well. Continue physical therapy. Anticipated rehabilitation. Discharge later in the week.
--- NOTE | 2017-11-06 22:33 | PRG ---
DATE OF SERVICE: 11/06/2017 REASON FOR CONSULTATION: Hematochezia. SUBJECTIVE: The patient did well overnight with no acute events or problems during that time. She does continue to have small bloody bowel movements, but per patient and nursing staff, this characterized primarily more as bright red drops present on the toilet paper, some in the toilet and some within her briefs. Currently, denies any nausea, vomiting, fevers, chills or abdominal pain. OBJECTIVE: VITAL SIGNS: With a temperature of 98.6, pulse 92, blood pressure 164/50, respiratory rate is 26, satting 97% on room air. GENERAL: The patient is lying in bed, in no acute distress. CARDIOVASCULAR: Regular rate and rhythm. RESPIRATORY: Clear to auscultation. ABDOMEN: Normoactive bowel sounds, soft, nondistended, mild tenderness to palpation in the left flank. LABORATORY DATA: CBC with a white blood cell count of 14.8, hemoglobin 9.8, hematocrit 29.3, platelets 390. Chemistry with a sodium of 135, potassium 3.7, chloride 105, CO2 of 24, BUN 32, creatinine 0.68, glucose 77. IMAGING DATA: No current GI imaging is available for review. 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 Hematochezia: At this point, the patient is presenting with a recent bout of recurrent diverticulitis with perforation and possible abscess formation that was surgically drained by Dr. Alfonso approximately 2 weeks ago. (no obvious perforation was seen during the exploratory laparotomy). She has been having multiple other medical comorbidities and had been doing fine from a surgical standpoint until approximately 24-48 hours ago when she had the acute onset of bright red blood per rectum. However, over the last 12-24 hours, she has had decrease in her bleeding now characterized as minimal amount of spotting primarily within the toilet and on the toilet paper. At this point, the origin of her GI bleeding is unknown, but could be due to ulceration at the site of the perforated colon or continued perforation with mild bleeding, but within the differential could also include mild ischemic colitis, hemorrhoidal bleeding , diverticular bleeding (less likely given the degree of bleeding), arteriovenous malformation/Dieulafoy lesion (less likely). RECOMMENDATIONS: 1. We would continue to trend H&H and transfuse as necessary to maintain an H& H of 12/02. 2. We will continue to monitor clinically for signs of active gastrointestinal bleeding. 3. We will hold on any endoscopic evaluation given her recent surgery and risk of reopening the perforation with insufflation. We will continue to follow. Please call with any questions. ANISA
[2017-11-07] MEDS: Cepastat Lozenges 1 LOZ PO PRN (01:51)
[2017-11-07 06:25] LABS: Anion Gap 9 mmol/L (10-20); BUN (Urea Nitrogen) 27 mg/dL (9.8-20.1); Calc. Creatinine Clearance 79 mL/min (70-130); Calcium 8.4 mg/dL (7.8-10.44); Carbon Dioxide 24 mmol/L (23-31); Chloride 103 mmol/L (98-107); Estimated GFR-MDRD Greater than 90; Glucose 105 mg/dL (83-110); Potassium 3.8 mmol/L (3.5-5.1); Sodium 132 mmol/L (136-145)
[2017-11-07 07:06] LABS: Hemoglobin 7.5 g/dL (12.0-16.0); Mean Corpuscular HGB CONC 33.5 g/dL (32.0-36.0); Mean Corpuscular Hemoglobin 28.8 pg (27.0-31.0); Platelet Count 349 thou/uL (130-400); RBC Distribution Width 13.8 % (11.5-14.5); White Blood Cell (WBC) Count 11.2 thou/uL (4.8-10.8)
[2017-11-07 08:07] LABS: Hemoglobin 9.2 g/dL (12.0-16.0)
[2017-11-07] MEDS: MESALAMINE 1.2 GM PO SCH ×3 (08:14→18:06)
[2017-11-07] MEDS: predniSONE 5 MG TAB PO SCH (08:15)
[2017-11-07] MEDS: Metoprolol Tartrate 25 MG TAB PO SCH ×2 (08:15→20:52)
[2017-11-07] MEDS: Folic Acid 1 MG TAB PO SCH (08:15)
[2017-11-07] MEDS: cloNIDine 0.3 MG TAB PO SCH ×3 (08:15→20:52)
[2017-11-07] MEDS: Saccharomyces boulardii 250 MG CAP PO SCH (08:16)
[2017-11-07 09:24] LABS: Band 7 % (5-11); Differential Comment Blast-Like Cell(s); Eosinophils 6 % (0-10); Lymphocytes 13 % (21-51); MDiff Complete? YES; Metamyelocyte 1 % (0-0); Monocytes 3 % (0-10); Myelocyte 4 % (0-0); Neutrophil 65 % (42-75); PLT Morphology Comment Appears Adequate; Polychromasia SLIGHT = 2-3 cells (100X) (0-2/hpf); Reflex for Review?? YES
[2017-11-07] MEDS: Polyethylene Glycol 3350 17 GM Packet PO SCH (09:26)
[2017-11-07] MEDS: Thyroid 60 MG TAB PO SCH (09:27)
[2017-11-07] MEDS: Pantoprazole 40 MG VIAL IVP SCH (09:27)
[2017-11-07 13:22] VITALS: BMI 27.6
--- NOTE | 2017-11-07 14:04 | PDOC.CTH ---
<Leanna Monge - Last Filed: 11/07/17 14:02> Cardiology Progress Note - Subjective The pt seen and examined. No overnight events. No cardiac complaints. She has been up to chair for a few hours in this AM. She tolerates regular diet well at this moment. - Objective Vital Signs Temp Pulse Pulse Pulse Resp BP BP 11/07/17 11:22 82 20 11/07/17 08:37 88 84 139/36 L 11/07/17 08:15 170/45 H 11/07/17 08:00 99.0 F 88 18 11/07/17 07:46 99.0 F 88 18 11/07/17 04:00 97.9 F 73 19 BP BP Pulse Ox Pulse Ox Pulse Ox 11/07/17 11:22 136/41 L 95 11/07/17 08:37 143/37 H 98 98 11/07/17 08:15 11/07/17 08:00 95 11/07/17 07:46 123/34 L 95 11/07/17 04:00 122/50 L 96 Admit Weight 138 lb 4.8 oz Weight 137 lb 1.6 oz 11/06/17 11/07/17 11/08/17 06:59 06:59 06:59 Intake Total 2976.5 1090 120 Output Total 850 890 Balance 2126.5 200 120 - Physical Examination General/Neuro: alert & oriented x3 Neck: no JVD present Lungs: other: (diminished at bases) Heart: RRR Abdomen: soft Extremities: other: (No edema) - Telemetry Telemetry Rhythm: SR - Labs Result Diagrams: 11/07/17 07:57 11/07/17 05:30 Troponin/CKMB CK-MB (CK-2) 2.1 ng/mL (0-6.6) 10/19/17 18:26 Troponin I Less than 0.010 ng/mL (< 0.028) 10/19/17 18:26 - Assessment/Plan 1. Paroxysmal Afib with s/p watchman placement in 01/2016 and S/p PVAI in 2011 and 01/2015 - Converted back to SR around 0610 on 11/06/17; Remains in SR with Diltiazem 180mg qd; No OAC due to s/p Watchman's device and GI bleed 2. GI bleed 2/2 Suspect diverticulitis with s/p 1u PRBC tx and and S/p EGD and Colonoscopy with multiple polypes removed - cont. Some blood spots in stool; NPO and receiving TPN; managed by GI 3. SBO with Perforated sigmoid colon with s/p laparoscopic washout - stable; managed by GI 4. HTN - stable with current medication; cont. to monitor 5. COPD - stable with RA 6. Lt Carotid stenosis - Carotid doppler study in 09/2017 showed 50-60% stenosis in Lt ICA; possible CTA carotid as outpt. 7. Hx of Sjogren's syndrome - stable 8. Hypothyroidism - managed by PCP MAR reviewed Review of Systems - Review of Systems Constitutional: reports: weakness EENTM: reports: no symptoms reported Respiratory: reports: no symptoms reported Cardiac (ROS): reports: no symptoms reported ABD/GI: reports: no symptoms reported : reports: no symptoms reported Musculoskeletal: reports: no symptoms reported <Susan Mays - Last Filed: 11/07/17 18:04> Cardiology Progress Note - Objective Vital Signs Temp Pulse Pulse Pulse Resp BP BP 11/07/17 16:00 98.1 F 64 18 11/07/17 11:22 82 20 11/07/17 08:37 88 84 139/36 L 11/07/17 08:15 170/45 H 11/07/17 08:00 99.0 F 88 18 11/07/17 07:46 99.0 F 88 18 BP BP Pulse Ox Pulse Ox Pulse Ox 11/07/17 16:00 118/68 98 11/07/17 11:22 136/41 L 95 11/07/17 08:37 143/37 H 98 98 11/07/17 08:15 11/07/17 08:00 95 11/07/17 07:46 123/34 L 95 Admit Weight 138 lb 4.8 oz Weight 137 lb 1.6 oz 11/06/17 11/07/17 11/08/17 06:59 06:59 06:59 Intake Total 2976.5 1090 120 Output Total 850 890 Balance 2126.5 200 120 - Labs Result Diagrams: 11/07/17 07:57 11/07/17 05:30 Troponin/CKMB CK-MB (CK-2) 2.1 ng/mL (0-6.6) 10/19/17 18:26 Troponin I Less than 0.010 ng/mL (< 0.028) 10/19/17 18:26 - Assessment/Plan Pt. seen and eval. by me.I agree with the A/p by the MOTOR VEHICLE LICENCE EXAMINER.No c/o. Chest clear. RRR. Will need to schedule CTA of carotids as an outpt.
--- NOTE | 2017-11-07 16:36 | PRG ---
DATE OF SERVICE: 11/07/2017 SUBJECTIVE: She states she feels great. She has had 2 small meals. OBJECTIVE: VITAL SIGNS: She is afebrile, heart rate is 82, blood pressure 170/45, respiratory rate is 20, oxime try is 95 on room air, blood pressure followup this afternoon, right around lunchtime, was 156/41. LUNGS: Clear. HEART: Regular rhythm. ABDOMEN: Nontender. LABORATORY DATA: Hemoglobin is 9.2, 7.5 earlier this morning. Electrolytes were unremarkable. Intake and output is positive 200 mL. IMPRESSION: 1. Status post laparotomy for perforated viscus. 2. Status post transfusion today for anemia, it is blood loss related. 3. Deconditioning that is improving. 4. Asthma that is clinically stable. She is stable to move out of the Intermediate Care Unit. Her central line can be discontinued. Give n that it has been in for 2 weeks, peripheral IV Hep-Lock should be obtained.
--- NOTE | 2017-11-07 18:40 | PRG ---
DATE OF SERVICE: 11/07/2017 SUBJECTIVE: Ms. Carrera has been hospitalized since 10/19/2017 with micro perforated diverticulitis. She is postoperative day #14 from a laparoscopic washout for the same problem. She had developed a s mall-bowel obstruction last week for which a nasogastric tube was placed. This has subsequently reso lved and she is now tolerating a regular diet. She has had numerous bowel movements. She denies ro sea or vomiting. She denies pain. She has recently had an episode of atrial fibrillation for which she was moved to the [facility], but she is now back on the surgical floor. She is off all antibiotics. S he was off TPN. She tells me she feels well and is ambulating. PHYSICAL EXAMINATION: VITAL SIGNS: She is afebrile, pulse is 64-82, blood pressure is 118/68. LUNGS: Clear to auscultation. ABDOMEN: Soft, nontender, nondistended. Both drain sites are healing nicely. There is absolutely n o tenderness in her abdomen. She has good bowel sounds diffusely. LABORATORY STUDIES: Her hemoglobin this morning was 7.5. She was given 1 unit of packed red blood c ell and later this morning it was 9.2. Her basic metabolic panel shows minimal electrolyte irregular ities. ASSESSMENT: She appears to be doing very well following treatment of her diverticulitis and her bryan l obstruction. This has been a lengthy hospitalization for a problem that normally does not take thi s long. She appears to be ready for discharge home at this time. I would plan on seeing her back in and electively at some point in the near future, resecting the area of her perforated diverticulitis . I suspect it is her chronic medical problems including her chronic steroid use that has so prolong ed her stay. She is already off all IV medications and all pain medication. She tells me she has 24 -hour care at home and she would therefore prefer to go home rather than to a rehabilitation facility . We will plan on this for tomorrow.
--- NOTE | 2017-11-07 19:16 | PRG ---
DATE OF SERVICE: 11/07/2017 REASON FOR CONSULTATION: Hematochezia. SUBJECTIVE: The patient did well overnight with no acute events or problems. She denies any continu ed bloody bowel movements or spotting either on the toilet paper or within her diaper. Currently, de nies any nausea, vomiting, fevers, chills or abdominal pain. OBJECTIVE: VITAL SIGNS: Temperature 98.1, pulse 64, blood pressure 118/68, respiratory rate 18, satting 98% on room air. GENERAL: Patient is lying in bed in no acute distress. Alert and oriented x4. CARDIOVASCULAR: Regular rate and rhythm. RESPIRATORY: Clear to auscultation bilaterally. ABDOMEN: Normoactive bowel sounds, soft and nondistended. Mild tenderness to palpation in the left flank and left lower quadrant. LABORATORY DATA: CBC with a hemoglobin of 9.2, hematocrit 27.9. Chemistry with sodium of 132, potas sium 3.8, chloride 103, CO2 24, BUN 27, creatinine 0.59, glucose 105. IMAGING DATA: No current GI imaging is available for review. ASSESSMENT AND PLAN: The patient is a 76-year-old female with past medical history of Denali's carlos is due to long-term steroid use, Sjogren's syndrome, osteoarthritis, hypertension, hypothyroidism, hy perlipidemia, atrial fibrillation with previous WATCHMAN procedure and recurrent diverticulitis with perforation requiring surgical drainage of possible abscess and now with hematochezia. Hematochezia: The patient initially presented with recurrent diverticulitis with perforation and pos sible abscess formation that was surgically drained by Dr. Alfonso with no obvious perforation seen d uring the exploratory laparotomy. She had been doing fine up until approximately 48-72 hours ago whe n she had the acute onset of bright red blood per rectum. However, over the last few days, she has h ad decreased amounts of bleeding that has culminated into complete cessation of bleeding upon examina tion today. At this point, the origin of her GI bleeding is unknown, but could be due to the perfora tion site within the colon/diverticulitis, diverticular bleeding, less likely given the degree of ble eding and abrupt cessation, ischemia (less likely). RECOMMENDATIONS: 1. We would continue to trend hemoglobin and hematocrit and transfuse as necessary to maintain an he moglobin and hematocrit of 7/21. 2. Continue to monitor clinically for signs of active gastrointestinal bleeding. 3. We will hold on any endoscopic evaluation given the perforated diverticulitis and risk of reopeni ng the perforation with instrumentation. 4. Given her lack of active bleeding, stable hemoglobin and hematocrit and improving clinical functi on, we will sign off at this time. Please call with any additional questions.
[2017-11-07] MEDS: busPIRone HCl 10 MG TAB PO SCH (20:52)
[2017-11-07] MEDS ORDERED: cloNIDine 0.3mg/24 Hour PATCH TD SCH (21:00)
[2017-11-07] MEDS: Lorazepam 0.5 MG TAB PO PRN (21:24)
[2017-11-08 05:54] LABS: #Eosinphils 0.8 thou/uL (0.0-0.7); #Lymphocytes 2.1 thou/uL (1.20-3.40); #Monocytes 0.6 thou/uL (0.11-0.59); #Neutrophils 5.9 thou/uL (1.40-6.50); %Basophils 0.3 % (0.0-1.0); %Eosinophils 8.6 % (0.0-10.0); %Lymphocytes 22.5 % (21.0-51.0); %Monocytes 6.6 % (0.0-10.0); %Neutrophils 62.1 % (42.0-75.0); Hemoglobin 9.1 g/dL (12.0-16.0); Mean Corpuscular HGB CONC 34.3 g/dL (32.0-36.0); Mean Corpuscular Hemoglobin 29.4 pg (27.0-31.0); Mean Corpuscular Volume 85.6 fL (78.0-98.0); Mean Platelet Volume 6.9 fL (7.4-10.4); Platelet Count 360 thou/uL (130-400); RBC Distribution Width 13.8 % (11.5-14.5); Red Blood Cell (RBC) Count 3.08 mill/uL (4.20-5.40); White Blood Cell (WBC) Count 9.5 thou/uL (4.8-10.8)
--- NOTE | 2017-11-08 09:11 | PRG ---
DATE OF SERVICE: 11/08/2017 SUBJECTIVE: Ms. Carrera today continues to do well. She notes that she had some diarrhea overnight, b ut is generally doing well. She has tolerated her diet without vomiting and her bowels as mentioned are moving well. She has no significant discomfort. OBJECTIVE: On examination, she is afebrile. Vital signs are normal. Her abdomen is entirely benign with normoactive bowel sounds. LABORATORY STUDIES: Her hemoglobin is stable at 9.2. ASSESSMENT: She appears to be stable 3 weeks after admission for a microperforated diverticulitis wi th subsequent washout about a week later. She subsequently developed a bowel obstruction, which is n ow resolved. I anticipate she will continue to have a variety of issues related to her chronic medic al problems, but at this point, she appears to be stable for discharge. She has requested discharge to home rather than to a rehabilitation facility, as she has 24-hour care at home. I have encouraged her to continue to maintain an appropriate diet with a high fiber and appropriate calories. She mateo uld go home on all of her regular medications. I have encouraged her to take both Metamucil and Gillian Lax to avoid constipation. If she has ongoing problems with diarrhea, she may need to back off on e MiraLax and take it every other day or half dose each day. I would like to see her back in 2 weeks and we will continue to assess her for when an appropriate time to proceed with laparoscopic colon r esection for diverticulitis will be.
[2017-11-08] MEDS: Thyroid 60 MG TAB PO SCH (10:27)
[2017-11-08] MEDS: cloNIDine 0.3 MG TAB PO SCH ×3 (10:27→21:33)
--- NOTE | 2017-11-08 10:27 | PDOC.PN ---
- Subjective Encounter Start Date: 11/08/17 (f/u htn) Encounter Start Time: 10:25 Subjective: Pt reports 4 episodes of diarrhea in the past 3 hours. Tearful -: tired of being in the hospital. Denies any pain but reports -: she feels uncomfortable. Decreased appetite - Objective Resuscitation Status: Resuscitation Status DNR:Do Not Resuscitate Vital Signs & Weight: Vital Signs (12 hours) Temp Pulse Resp BP Pulse Ox 11/08/17 07:50 98.9 F 72 20 150/69 H 97 11/08/17 03:31 98.2 F 68 17 137/70 96 11/08/17 00:00 97.7 F 61 16 117/71 94 L Weight Admit Weight 138 lb 4.8 oz Weight 137 lb 1.6 oz Most Recent Monitor Data Heart Rate from ECG 79 NIBP 166/48 NIBP BP-Mean 99 Respiration from ECG 24 SpO2 97 I&O: 11/07/17 11/08/17 11/09/17 06:59 06:59 06:59 Intake Total 1090 1120 Output Total 890 1400 Balance 200 -280 Result Diagrams: 11/08/17 05:31 11/07/17 05:30 Additional Labs: Accuchecks 11/08/17 11/07/17 05:45 20:33 POC Glucose 82 156 H Phys Exam - Physical Examination Constitutional: NAD Respiratory: no wheezing, no rales, no rhonchi Cardiovascular: no significant murmur, irregular Gastrointestinal: soft, non-tender, no distention, positive bowel sounds Musculoskeletal: no edema Neurological: non-focal, moves all 4 limbs Psychiatric: normal affect Deviation from normal: tearful with discussion of situation, responds appropriately Skin: no rash Dx/Plan (1) Perforated sigmoid colon Code(s): K63.1 - PERFORATION OF INTESTINE (NONTRAUMATIC) Status: Acute (2) Sepsis Code(s): A41.9 - SEPSIS, UNSPECIFIED ORGANISM Status: Resolved Qualifiers: Sepsis type: sepsis due to unspecified organism Qualified Code(s): A41.9 - Sepsis, unspecified organism (3) Acute diverticulitis of intestine Code(s): K57.92 - DVTRCLI OF INTEST, PART UNSP, W/O PERF OR ABSCESS W/O BLEED Status: Chronic (4) Hyperlipidemia Code(s): E78.5 - HYPERLIPIDEMIA, UNSPECIFIED Status: Chronic Qualifiers: Hyperlipidemia type: unspecified Qualified Code(s): E78.5 - Hyperlipidemia , unspecified (5) Hypertension Code(s): I10 - ESSENTIAL (PRIMARY) HYPERTENSION Status: Chronic Qualifiers: Hypertension type: essential hypertension Qualified Code(s): I10 - Essential (primary) hypertension (6) Hypothyroidism Code(s): E03.9 - HYPOTHYROIDISM, UNSPECIFIED Status: Chronic Qualifiers: Hypothyroidism type: acquired Qualified Code(s): E03.9 - Hypothyroidism, unspecified (7) Sjogren's syndrome Code(s): M35.00 - SICCA SYNDROME, UNSPECIFIED Status: Chronic Qualifiers: Sjogren's organ involvement: unspecified organ involvement Qualified Code(s ): M35.00 - Sicca syndrome, unspecified - Plan * Pt cleared for d/c to home, however with 4 episodes of diarrhea in only a few hours, is not safe for discharge. Start metamucil, check c diff, monitor PO intake and for any orthostatic sx. * * When ready for discharge - discussed antihypertensive meds with Leanna/Cards * meds discontinued here: aspirin, hydralazine, inderal, lisinopril - these will stay off at discharge * Meds started here to continue after discharge: metoprolol and diltiazem * f/u 2 weeks * Instructions from Dr. Alfonso after discharge * f/u 2 weeks * miralax daily, metamucil daily - can reduce to 1/2 dose daily if diarrhea * recommendations from nutrition: fiber restricted diet and glucerna shakes bid * continue other meds as ordered, including steroids * * dvt prophy - scds * gi prophy - not indicated * code status DNR * * reviewed the plan of care iwht patient, no quesitons or further needs at end of eval. If diarrhea controlled, anticipate d/c tomorrow to home. Case management consult placed for home health. * .
[2017-11-08] MEDS: Metoprolol Tartrate 25 MG TAB PO SCH ×2 (10:28→21:34)
[2017-11-08] MEDS: Saccharomyces boulardii 250 MG CAP PO SCH (10:28)
[2017-11-08] MEDS: Folic Acid 1 MG TAB PO SCH (10:28)
[2017-11-08] MEDS: predniSONE 5 MG TAB PO SCH (10:28)
[2017-11-08] MEDS: Polyethylene Glycol 3350 17 GM Packet PO SCH (10:29)
[2017-11-08] MEDS: MESALAMINE 1.2 GM PO SCH ×3 (10:33→16:18)
[2017-11-08] MEDS: Pantoprazole 40 MG VIAL IVP SCH (10:42)
[2017-11-08] MEDS ORDERED: Metamucil PACK PO SCH (10:45)
--- NOTE | 2017-11-08 15:35 | PDOC.CTH ---
Cardiology Progress Note - Subjective The pt seen and examined. No overnight events. No cardiac complaints. Holding d/c home due to 4 episodes of diarrhea in only a few hours in this AM. She reported that her diarrhea is stable at this moment. No ABD pain or discomfort, or blood in stool. - Objective Vital Signs Temp Pulse Resp BP BP BP Pulse Ox 11/08/17 11:25 100.1 F H 87 14 149/70 H 97 11/08/17 10:27 126/68 11/08/17 08:00 98.9 F 72 20 97 11/08/17 07:50 98.9 F 72 20 150/69 H 97 Admit Weight 138 lb 4.8 oz Weight 137 lb 1.6 oz 11/07/17 11/08/17 11/09/17 06:59 06:59 06:59 Intake Total 1090 1120 Output Total 890 1400 Balance 200 -280 - Physical Examination General/Neuro: alert & oriented x3 Neck: no JVD present Lungs: CTA Heart: RRR Abdomen: soft Extremities: other: - Labs Result Diagrams: 11/08/17 05:31 11/07/17 05:30 Troponin/CKMB CK-MB (CK-2) 2.1 ng/mL (0-6.6) 10/19/17 18:26 Troponin I Less than 0.010 ng/mL (< 0.028) 10/19/17 18:26 - Assessment/Plan 1. Paroxysmal Afib with s/p watchman placement in 01/2016 and S/p PVAI in 2011 and 01/2015 - Converted back to SR around 0610 on 11/06/17; Remains in regular rhythm with Diltiazem 180mg qd; No OAC due to s/p Watchman's device and GI bleed 2. GI bleed 2/2 Suspect diverticulitis with s/p 1u PRBC tx and and S/p EGD and Colonoscopy with multiple polypes removed - cont. Some blood spots in stool; NPO and receiving TPN; managed by GI 3. SBO with Perforated sigmoid colon with s/p laparoscopic washout - stable; managed by GI 4. HTN - stable with current medication; cont. to monitor 5. COPD - stable with RA 6. Lt Carotid stenosis - Carotid doppler study in 09/2017 showed 50-60% stenosis in Lt ICA; possible CTA carotid as outpt. 7. Hx of Sjogren's syndrome - stable 8. Hypothyroidism - managed by PCP ATIYA lobato * From cardiac standpoint, she is stable to d/c home. The pt will f/u with ' office within 2-4 wks with schedule for CTA of carotids as an outpt. * Miralax daily was prescribed for 4 episodes of diarrhea in only a few hours this AM. Review of Systems - Review of Systems Constitutional: reports: weakness EENTM: reports: no symptoms reported Respiratory: reports: no symptoms reported Cardiac (ROS): reports: no symptoms reported ABD/GI: reports: no symptoms reported Musculoskeletal: reports: no symptoms reported Skin: reports: no symptoms reported
--- NOTE | 2017-11-08 17:25 | PRG ---
DATE OF SERVICE: 11/08/2017 SUBJECTIVE: Ms. Carrera wants to go home. OBJECTIVE: GENERAL: She is in no distress. VITAL SIGNS: Temperature is 100.1 this afternoon, heart rate 87, respiratory rate 14, oximetry is 97 on room air. LUNGS: Completely clear. HEART: Regular rhythm. ABDOMEN: Soft. LABORATORY DATA: White count 9.5, hemoglobin 9.1, platelets 360,000. Sodium 132, potassium 3.8, chl oride 103, bicarbonate 24, BUN 27, creatinine 0.5. IMPRESSION: 1. Status post laparotomy for perforated diverticulitis. 2. Anemia (blood loss). 3. Deconditioning, improving. 4. Asthma that inactive now. 5. Temperature of 100 degrees was likely atelectasis from lying in bed. This will continued to be m onitored.
[2017-11-08] MEDS: busPIRone HCl 10 MG TAB PO SCH (21:34)
[2017-11-08] MEDS: Lorazepam 0.5 MG TAB PO PRN (23:00)
[2017-11-09 05:48] LABS: Anion Gap 7 mmol/L (10-20); BUN (Urea Nitrogen) 10 mg/dL (9.8-20.1); Calc. Creatinine Clearance 77 mL/min (70-130); Calcium 8.7 mg/dL (7.8-10.44); Carbon Dioxide 28 mmol/L (23-31); Chloride 104 mmol/L (98-107); Estimated GFR-MDRD Greater than 90; Glucose 109 mg/dL (83-110); Potassium 3.2 mmol/L (3.5-5.1); Sodium 136 mmol/L (136-145)
--- NOTE | 2017-11-09 06:01 | PDOC.PN ---
- Subjective Encounter Start Date: 11/07/17 Encounter Start Time: 07:15 -: old records requested/rev Pt seen and examined, chart reviewed in its entirety, this is my first visit with this patient this hospitalization No F/C, no N/V/d/C, no CP, no SOB Hgb down almost 2g since yesterday, pt has seen no blood. stat repeat ordered, 1 u PRBC to be transfused if really low, tagged RBC ordered as well. Appreciate GI input All systems reviewed and neg x as above - Objective Resuscitation Status: Resuscitation Status DNR:Do Not Resuscitate MAR Reviewed: Yes Vital Signs & Weight: Vital Signs (12 hours) Temp Pulse Resp BP BP Pulse Ox 11/09/17 04:00 97.8 F 61 16 146/55 H 98 11/09/17 00:00 97.3 F L 56 L 14 135/55 L 98 11/08/17 21:33 132/64 11/08/17 20:00 98.1 F 64 20 132/64 97 Weight Admit Weight 138 lb 4.8 oz Weight 137 lb 1.6 oz Most Recent Monitor Data Heart Rate from ECG 79 NIBP 166/48 NIBP BP-Mean 99 Respiration from ECG 24 SpO2 97 I&O: 11/07/17 11/08/17 11/09/17 06:59 06:59 06:59 Intake Total 1090 1120 840 Output Total 890 1400 Balance 200 -280 840 Result Diagrams: 11/08/17 05:31 11/09/17 05:11 Additional Labs: Accuchecks 11/08/17 11/08/17 11/08/17 21:14 15:22 11:06 POC Glucose 143 H 163 H 109 11/08/17 05:45 POC Glucose 82 Radiology Reviewed by me: Yes EKG Reviewed by me: Yes Phys Exam - Physical Examination Constitutional: NAD HEENT: PERRLA, moist MMs, sclera anicteric, oral pharynx no lesions Neck: no nodes, no JVD, supple, full ROM Respiratory: no wheezing, no rales, no rhonchi, clear to auscultation bilateral Cardiovascular: RRR, no significant murmur, no rub Gastrointestinal: soft, non-tender, no distention, positive bowel sounds Musculoskeletal: pulses present, edema present Neurological: non-focal, normal sensation, moves all 4 limbs Lymphatic: no nodes Psychiatric: normal affect, A&O x 3 Skin: no rash, normal turgor, cap refill <2 seconds Dx/Plan (1) Atrial fibrillation with RVR Code(s): I48.91 - UNSPECIFIED ATRIAL FIBRILLATION Status: Resolved Comment: Converted to SR, Cardizem gtt, Cardizem 180mg daily, Digoxin IV x 1 dose, Metoprolol 25mg BID (2) GI bleed Code(s): K92.2 - GASTROINTESTINAL HEMORRHAGE, UNSPECIFIED Status: Acute Qualifiers: GI bleed type/associated pathology: unspecified gastrointestinal hemorrhage type Qualified Code(s): K92.2 - Gastrointestinal hemorrhage, unspecified Comment: Suspect multifactorial given recent perforated diverticulitis and SBO with laparoscopy and wash out, GI consult, serial H/H, avoid anticoagulation and ASA, s/p 1u PRBC's. Dropped overnight again, give anothe runit if repeat really this low and get tagged RBC scan at GI recommendation (3) Perforated sigmoid colon Code(s): K63.1 - PERFORATION OF INTESTINE (NONTRAUMATIC) Status: Acute (4) SBO (small bowel obstruction) Code(s): K56.609 - UNSP INTESTNL OBST, UNSP TO PARTIAL VERSUS COMPLETE OBST Status: Acute Comment: Resolving with current measures, NGT d/c'd (5) Chronic anemia Code(s): D64.9 - ANEMIA, UNSPECIFIED Status: Chronic (6) H/O CHF Code(s): Z86.79 - PERSONAL HISTORY OF OTHER DISEASES OF THE CIRCULATORY SYSTEM Status: Chronic Comment: with diastolic dysfunction (7) Sepsis Code(s): A41.9 - SEPSIS, UNSPECIFIED ORGANISM Status: Resolved Qualifiers: Sepsis type: sepsis due to unspecified organism Qualified Code(s): A41.9 - Sepsis, unspecified organism (8) Acute metabolic encephalopathy Code(s): G93.41 - METABOLIC ENCEPHALOPATHY Status: Acute Comment: IV fluids , hold sedatives, watch labs - Plan * .
[2017-11-09 06:23] LABS: #Eosinphils 0.8 thou/uL (0.0-0.7); #Monocytes 0.8 thou/uL (0.11-0.59); #Neutrophils 5.3 thou/uL (1.40-6.50); %Basophils 0.4 % (0.0-1.0); %Eosinophils 8.6 % (0.0-10.0); %Lymphocytes 22.7 % (21.0-51.0); %Monocytes 8.9 % (0.0-10.0); %Neutrophils 59.3 % (42.0-75.0); Hemoglobin 9.6 g/dL (12.0-16.0); Mean Corpuscular HGB CONC 32.9 g/dL (32.0-36.0); Mean Corpuscular Hemoglobin 29.1 pg (27.0-31.0); Mean Corpuscular Volume 88.4 fL (78.0-98.0); Mean Platelet Volume 7.8 fL (7.4-10.4); Platelet Count 392 thou/uL (130-400); White Blood Cell (WBC) Count 8.9 thou/uL (4.8-10.8)
--- NOTE | 2017-11-09 09:13 | PDOC.CTH ---
<Leanna Monge - Last Filed: 11/09/17 09:11> Cardiology Progress Note - Subjective The pt seen and examined. No overnight events. No cardiac complaints. She has not had any diarrhea since she had Miralax yesterday. - Objective Vital Signs Temp Pulse Resp BP BP Pulse Ox 11/09/17 04:00 97.8 F 61 16 146/55 H 98 11/09/17 00:00 97.3 F L 56 L 14 135/55 L 98 11/08/17 21:33 132/64 Admit Weight 138 lb 4.8 oz Weight 123 lb 6.4 oz 11/08/17 11/09/17 11/10/17 06:59 06:59 06:59 Intake Total 1120 840 Output Total 1400 Balance -280 840 - Physical Examination General/Neuro: alert & oriented x3 Neck: no JVD present Lungs: other: (diminished at bases) Heart: RRR Abdomen: soft Extremities: other: (No edema) - Labs Result Diagrams: 11/09/17 05:11 11/09/17 05:11 Troponin/CKMB CK-MB (CK-2) 2.1 ng/mL (0-6.6) 10/19/17 18:26 Troponin I Less than 0.010 ng/mL (< 0.028) 10/19/17 18:26 - Assessment/Plan 1. Paroxysmal Afib with s/p watchman placement in 01/2016 and S/p PVAI in 2011 and 01/2015 - Converted back to SR around 0610 on 11/06/17; Remains in regular rhythm with Diltiazem 180mg qd; No OAC due to s/p Watchman's device and GI bleed 2. GI bleed 2/2 Suspect diverticulitis with s/p 1u PRBC tx and and S/p EGD and Colonoscopy with multiple polypes removed - cont. Some blood spots in stool; NPO and receiving TPN; managed by GI 3. SBO with Perforated sigmoid colon with s/p laparoscopic washout - stable; managed by GI 4. HTN - stable with current medication; cont. to monitor 5. COPD - stable with RA 6. Lt Carotid stenosis - Carotid doppler study in 09/2017 showed 50-60% stenosis in Lt ICA; possible CTA carotid as outpt. 7. Hx of Sjogren's syndrome - stable 8. Hypothyroidism - managed by PCP 9. hypokalemia - Kcl 40 mEq x1 dose today 10. Diarrhea - stable with Miralax MAR reviewed * From cardiac standpoint, she is stable to d/c home. The pt will f/u with ' office within 2-4 wks with schedule for CTA of carotids as an outpt. Review of Systems - Review of Systems Constitutional: reports: no symptoms reported EENTM: reports: no symptoms reported Respiratory: reports: no symptoms reported Cardiac (ROS): reports: no symptoms reported ABD/GI: reports: no symptoms reported : reports: no symptoms reported Musculoskeletal: reports: no symptoms reported <Susan Mays - Last Filed: 11/09/17 10:23> Cardiology Progress Note - Objective Vital Signs Temp Pulse Resp BP BP Pulse Ox 11/09/17 09:54 175/62 H 11/09/17 04:00 97.8 F 61 16 146/55 H 98 11/09/17 00:00 97.3 F L 56 L 14 135/55 L 98 Admit Weight 138 lb 4.8 oz Weight 123 lb 6.4 oz 11/08/17 11/09/17 11/10/17 06:59 06:59 06:59 Intake Total 1120 840 Output Total 1400 Balance -280 840 - Labs Result Diagrams: 11/09/17 05:11 11/09/17 05:11 Troponin/CKMB CK-MB (CK-2) 2.1 ng/mL (0-6.6) 10/19/17 18:26 Troponin I Less than 0.010 ng/mL (< 0.028) 10/19/17 18:26 - Assessment/Plan Pt. seen and eval. by me. I agree with the A/P by the MACHINE PECAN GATHERER. From a cardiac standpoint she is stable. Chest clear. RRR with occasional ectopy. No edema.
[2017-11-09] MEDS ORDERED: Potassium Chloride 20 MEQ TAB PO SCH (09:15)
[2017-11-09] MEDS: Saccharomyces boulardii 250 MG CAP PO SCH (09:53)
[2017-11-09] MEDS: MESALAMINE 1.2 GM PO SCH ×2 (09:53→12:36)
[2017-11-09] MEDS: cloNIDine 0.3 MG TAB PO SCH (09:54)
[2017-11-09] MEDS: Folic Acid 1 MG TAB PO SCH (09:57)
[2017-11-09] MEDS: Metoprolol Tartrate 25 MG TAB PO SCH (09:59)
[2017-11-09] MEDS: Thyroid 60 MG TAB PO SCH (09:59)
[2017-11-09] MEDS: predniSONE 5 MG TAB PO SCH (10:00)
[2017-11-09] MEDS: Metamucil PACK PO SCH ×2 (10:01→10:10)
[2017-11-09] MEDS: Polyethylene Glycol 3350 17 GM Packet PO SCH (10:02)
[2017-11-09 12:44] VITALS: BP 148/70; TEMP 98.6
--- NOTE | 2017-11-09 16:22 | DIS ---
DATE OF ADMISSION: 10/19/2017 DATE OF DISCHARGE: 11/09/2017 PRIMARY CARE PHYSICIAN: Leif Tim MD DISCHARGE DIAGNOSES: 1. Perforated diverticulitis. 2. Intra-abdominal sepsis and peritonitis. 3. Acute blood loss anemia. 4. Gastrointestinal bleed. 5. Physical deconditioning. 6. Asthma, with acute exacerbation and active on the time of discharge. 7. Small-bowel obstruction. 8. History of diastolic congestive heart failure, chronic. 9. Sepsis due to a perforated diverticulum, present on admission, resolved. 10. Acute metabolic encephalopathy, resolved. 11. Sjogren syndrome. 12. Steroid dependence. 13. History of atrial fibrillation, paroxysmal. 14. Atrial fibrillation with rapid ventricular response, now resolved. PROCEDURES: 1. On 10/24/2017, Gary Alfonso; patient went for exploratory laparotomy with peritoneal cavity ir rigation, drainage of intra-abdominal abscess and placement of Zain-Bautista drain. 2. Code Green on 11/01/2017 for chest pain and heart rate in the 170s with a blood pressure of 190/1 10. HISTORY AND PHYSICAL: Ms. Carrera is a 76-year-old female known to me from previous hospitalization wh o presented to the emergency department on 10/19/2017 with complaint of abdominal pain. Workup in th e ER showed acute diverticulitis with small bowel perforation and obstruction. We were called for ad mission. The patient was seen by Dr. Browne. HOSPITAL COURSE: The patient was admitted by Dr. Browne to continue on Zosyn plus Flagyl for unknown reasons. Home medicines were reviewed. GI was consulted. Her hypertensive urgency was treated with home medications plus p.r.n. hydralazine. Overnight on 10/19/2017 to 10/20/2017, patient was taken over by Dr. Singh. Surgery was consulted. The patient continued on left quadrant pain. Her w jose cruz count was slightly improved to 13.8. Patient was seen by Dr. Alfonso, recommended medical tune up prior to going to surgery. Repeat abdomen CT on 10/24/2017 after several days of antibiotics show ed colonic diverticulosis with perforation in the left lower quadrant, free intraperitoneal air with significantly increase since initial study. The patient was subsequently taken to the operating room for exploratory laparotomy by Dr. Alfonso an d continue on antibiotics. Postop, the patient had evidence of small-bowel obstruction with NG tube placement. She was maintained in the ICU for some time until this was able to be removed and she had return of bowel function. She slowly improved, though physically deconditioned. On 10/30/2017, patient continued on TPN for nu tritional support, IV pain medicines. Conservative management is advanced to a liquid diet. PT, OT and ambulation were begun and the patient's white blood cell count remained stable at 13.5. On 10/30 to 11/01/2017, patient continued to improve. A CT scan on 10/31/2017 did show her small-bowel obstruction. An NG tube output has been about 1.5 liters over the 24 hours. Patient was otherwise s table and transferred out of the ICU. She was transferred to immediate care. On 11/02/2017, the patient had a code overnight for atrial fibrillation with RVR and was feeling bett er on Cardizem. She slowly improved from 11/02/2017 to 11/07/2017 while I took her case over. At th at point, she had a slight drop in hemoglobin, the day prior received 1 unit blood transfusion. Repe at hemoglobin on 11/07/2017 had dropped from 9.1-7.5. She subsequently had a repeat done that was ac tually at 9.2. A tagged red blood cell scan and unit blood transfusion that was ordered to be cancel ed. She remained stable from 11/07/2017 to 11/09/2017 aside from multiple episodes of diarrhea on . By 11/09/2017, she was stable for discharge with outpatient followup. PHYSICAL EXAMINATION: The patient was seen and examined on the day of discharge. Discharge plan and disposition was discussed with the patient face to face at bedside. DISCHARGE MEDICATIONS: New medication: 1. Diltiazem 180 mg p.o. daily, prescription given for 30 tablets with refills. 2. Metoprolol tartrate 25 mg p.o. b.i.d., prescription for 60 tablets with refills given. MEDICINES TO STOP: 1. Mesalamine 800 mg p.o. t.i.d. 2. Lisinopril 10 mg p.o. b.i.d. 3. Lasix 40 mg daily. FOLLOWUP APPOINTMENTS: 1. Dr. Tim within a week. 2. Dr. Alfonso in 2-3 weeks. 3. Gastroenterology per their clinic. DISCHARGE CONDITION: Stable. DISPOSITION: Discharged to home with home healthcare with positive [facility]. DISCHARGE ACTIVITY: As tolerated.
== END 2017-11-09 13:30 | disposition home health service (06) | DRG 871 ==
LOC: ERS 18:02 → 2NO 20:29 → SURG A 10-21 11:58 → CCU 11-01 20:58 → IMCU/EMU 11-05 15:43 → SURG A 11-07 15:59
PROVIDERS: ADMIT Internal Medicine; ATTEND Internal Medicine
PROC: 0W9G40Z Drainage of Peritoneal Cavity with Drainage Device, Percutaneous Endoscopic Approach (ICD-10-PCS; principal; 2017-10-24)
DX: A41.9 Sepsis, unspecified organism (principal); K65.9 Peritonitis, unspecified; G93.41 Metabolic encephalopathy; K57.20 Diverticulitis of large intestine with perforation and abscess without bleeding; D62 Acute posthemorrhagic anemia; J45.901 Unspecified asthma with (acute) exacerbation; I50.32 Chronic diastolic (congestive) heart failure; E87.1 Hypo-osmolality and hyponatremia; E27.2 Addisonian crisis; I31.9 Disease of pericardium, unspecified; K91.30 Postprocedural intestinal obstruction, unspecified as to partial versus complete; E27.40 Unspecified adrenocortical insufficiency; R65.20 Severe sepsis without septic shock; M35.00 Sjogren syndrome, unspecified; Z79.51 Long term (current) use of inhaled steroids; J44.9 Chronic obstructive pulmonary disease, unspecified; E03.9 Hypothyroidism, unspecified; E87.6 Hypokalemia; R19.7 Diarrhea, unspecified; I48.0 Paroxysmal atrial fibrillation; E78.5 Hyperlipidemia, unspecified; Z66 Do not resuscitate; I11.0 Hypertensive heart disease with heart failure; E83.39 Other disorders of phosphorus metabolism; K21.9 Gastro-esophageal reflux disease without esophagitis; Z80.1 Family history of malignant neoplasm of trachea, bronchus and lung; Z83.3 Family history of diabetes mellitus; Z82.49 Family history of ischemic heart disease and other diseases of the circulatory system; Y83.8 Other surgical procedures as the cause of abnormal reaction of the patient, or of later complication, without mention of misadventure at the time of the procedure; Y82.8 Other medical devices associated with adverse incidents; Y92.239 Unspecified place in hospital as the place of occurrence of the external cause
CPT/HCPCS: 36415; 36416; 36430; 64483; 64484; 71045; 74019; 74022; 74177; 80048; 80053; 82550; 82553; 83605; 83735; 83880; 84100; 84484; 85007; 85025; 85027; 85060; 86850; 86900; 86901; 87070; 87076; 87077; 87186; 87205; 87324; 87449; 87493; 93005; 93010; 94640; 94760; 96365; 96368; 96375; 99213; A4216; C9113; G0463; G8978-GP-CK; G8978-GP-CL; G8978-GP-CM; G8979-GP-CI; G8979-GP-CJ; G8979-GP-CK; G8987-GO-CJ; G8987-GO-CL; G8988-GO-CH; G8988-GO-CI; J0360; J1100; J1160; J1815; J2001; J2060; J2270; J2405; J2543; J2704; J2920; J3010; J3475; J3480; J7050; J7620; P9016; Q0162; S0020; S0028

== ENCOUNTER 2017-12-12 20:47 | Inpatient (IN) | payer MEDICARE, BC ==
[2017-12-12 21:44] LABS: Mean Corpuscular HGB CONC 32.9 g/dL (32.0-36.0); Mean Corpuscular Hemoglobin 28.9 pg (27.0-31.0); Mean Corpuscular Volume 87.9 fL (78.0-98.0); Mean Platelet Volume 6.5 fL (7.4-10.4); Platelet Count 318 thou/uL (130-400); RBC Distribution Width 13.9 % (11.5-14.5); Red Blood Cell (RBC) Count 3.45 mill/uL (4.20-5.40); White Blood Cell (WBC) Count 17.5 thou/uL (4.8-10.8)
[2017-12-12 21:53] LABS: Band 1 % (5-11); Eosinophils 1 % (0-10); Hypochromia SLIGHT = 6-15 cells (100X) (0-5/hpf); Lymphocytes 29 % (21-51); MDiff Complete? YES; Monocytes 11 % (0-10); Neutrophil 58 % (42-75); PLT Morphology Comment Appears Adequate
[2017-12-12 21:55] LABS: ALT (SGPT) 36 U/L (8-55); AST (SGOT) 26 U/L (5-34); Albumin 3.6 g/dL (3.4-4.8); Alkaline Phosphatase 67 U/L (40-150); Anion Gap 21 mmol/L (10-20); BUN (Urea Nitrogen) 14 mg/dL (9.8-20.1); Bilirubin, Total 0.5 mg/dL (0.2-1.2); Calc. Creatinine Clearance 0 mL/min (70-130); Carbon Dioxide 16 mmol/L (23-31); Chloride 101 mmol/L (98-107); Estimated GFR-MDRD 79; Globulin 2.6 g/dL (2.4-3.5); Glucose 117 mg/dL (83-110); Potassium 3.8 mmol/L (3.5-5.1); Protein, Total 6.2 g/dL (6.0-8.3); Sodium 134 mmol/L (136-145)
[2017-12-12 22:29] LABS: CKMB 1.7 ng/mL (0-6.6); Troponin I 0.011 ng/mL (< 0.028)
--- NOTE | 2017-12-12 23:07 | CT ---
CT ABDOMEN AND PELVIS WITH IV CONTRAST 12/12/17 HISTORY: GI bleed, leukocytosis. FINDINGS: Comparison is made with exam of 10/31/17. The lung bases are clear. No free air or free fluid is seen in the abdomen or pelvis. The previously noted drainage catheter has been removed during the interim. Calcified granulomas in the liver and sp antonio are again seen. there is fatty infiltration of the liver. The patient is post cholecystectomy. T he pancreas, adrenal glands, and kidneys are unremarkable. There are vascular calcifications without evidence of aneurysmal dilatation of the abdominal aorta. There is fecal material in the colon. Ther e is colonic diverticulosis in the descending and sigmoid colon without pericolonic inflammatory gerber ges to suggest diverticulitis. There is mild residual stranding of the intra-abdominal fat adjacent to the descending colon in the l eft lower quadrant and region of the previous catheter placement. Changes of vertebroplasty are again seen in the thoracolumbar spine. IMPRESSION: 1. Old granulomatous disease. 2. Fatty liver. 3. Colonic diverticulosis without evidence of diverticulitis. 4. Constipation. POS: ARNAV
[2017-12-13 02:31] VITALS: BMI 26.2
[2017-12-13] MEDS ORDERED: Loperamide HCl 2 MG CAP PO PRN (03:03)
[2017-12-13] MEDS ORDERED: Albuterol Sulfate 2.5 mg/3 ml Neb NEB PRN (03:03)
[2017-12-13] MEDS ORDERED: HYDROcodone/Acetaminophen 5/325 mg Tablet PO PRN (03:03)
[2017-12-13] MEDS ORDERED: Mag-Al 1200 mg/1200 mg/30 ML UDCUP PO PRN (03:03)
[2017-12-13] MEDS ORDERED: Bisacodyl 5 MG TAB PO PRN (03:03)
[2017-12-13 03:27] LABS: Hemoglobin 8.1 g/dL (12.0-16.0)
[2017-12-13 03:29] LABS: #Basophils 0.1 thou/uL (0.0-0.2); #Eosinphils 0.2 thou/uL (0.0-0.7); #Lymphocytes 5.1 thou/uL (1.20-3.40); %Basophils 0.5 % (0.0-1.0); %Eosinophils 1.1 % (0.0-10.0); %Lymphocytes 27.6 % (21.0-51.0); %Monocytes 5.7 % (0.0-10.0); %Neutrophils 65.2 % (42.0-75.0); Mean Corpuscular Hemoglobin 30.3 pg (27.0-31.0); Mean Corpuscular Volume 86.6 fL (78.0-98.0); Mean Platelet Volume 6.4 fL (7.4-10.4); Platelet Count 261 thou/uL (130-400); RBC Distribution Width 13.8 % (11.5-14.5); Red Blood Cell (RBC) Count 2.65 mill/uL (4.20-5.40); White Blood Cell (WBC) Count 18.4 thou/uL (4.8-10.8)
[2017-12-13 03:45] LABS: Anion Gap 13 mmol/L (10-20); BUN (Urea Nitrogen) 15 mg/dL (9.8-20.1); Calc. Creatinine Clearance 65 mL/min (70-130); Calcium 8.6 mg/dL (7.8-10.44); Carbon Dioxide 23 mmol/L (23-31); Chloride 101 mmol/L (98-107); Estimated GFR-MDRD 84; Glucose 103 mg/dL (83-110); Potassium 3.9 mmol/L (3.5-5.1); Sodium 133 mmol/L (136-145)
[2017-12-13] MEDS: cefTRIAXone\\ROCEPHIN 1 GM in Sodium Chloride 0.9% 100 ML IVPB SCH (06:03)
[2017-12-13] MEDS: Thyroid 60 MG TAB PO SCH (06:03)
[2017-12-13] MEDS: cloNIDine 0.3 MG TAB PO SCH ×3 (08:42→21:27)
[2017-12-13] MEDS: predniSONE 5 MG TAB PO SCH (08:43)
[2017-12-13] MEDS: Folic Acid 1 MG TAB PO SCH (08:44)
[2017-12-13] MEDS: Metoprolol Tartrate 25 MG TAB PO SCH ×2 (08:44→21:28)
[2017-12-13] MEDS: Saccharomyces boulardii 250 MG CAP PO SCH (08:44)
[2017-12-13] MEDS: Potassium Chloride 20 MEQ TAB PO SCH ×2 (08:45→21:28)
[2017-12-13] MEDS: Polyethylene Glycol 3350 17 GM Packet PO SCH (08:46)
[2017-12-13] MEDS: Multivitamin W/ Minerals 1 TAB PO SCH (08:46)
[2017-12-13] MEDS ORDERED: Rosuvastatin 10 MG TAB PO SCH (09:00)
[2017-12-13] MEDS ORDERED: Mesalamine DR 400 mg Capsule PO SCH (09:00)
[2017-12-13 09:26] LABS: Bilirubin Small (Negative); Blood, Urine Negative (Negative); Clarity CLEAR (Clear); Glucose, Urine (Dipstick) Negative (Negative); Leukocyte Negative (Negative); Nitrite Negative (Negative); Protein, Urine (Dipstick) Negative (Neg-Trace); Urobilinogen 0.2 mg/dL (0.2-1.0); pH, Urine 5.5 (5.0-9.0)
[2017-12-13 09:39] LABS: Specific Gravity, Urine Greater than 1.060 (1.002-1.036)
[2017-12-13 11:16] LABS: Hemoglobin 7.9 g/dL (12.0-16.0)
--- NOTE | 2017-12-13 11:45 | HP ---
TIME OF EVALUATION: 11:15 a.m. CODE STATUS: She is a DNR as per patient's request . PRIMARY CARE PHYSICIAN: No PCP. CHIEF COMPLAINT: GI bleed. HISTORY OF PRESENT ILLNESS: This is a 76-year-old female patient with past medical history of divert icular bleeding in the past, complicated with perforated diverticular disease, patient came to the [facility] after having bloody stools that has started around 3:00 p.m. The patient reported that the am ounts of blood was large. She had multiple episodes for about 30-45 minutes, it was associated with nausea, feeling lightheaded, no clear triggers, no alleviating factors. Symptoms are reported as mod erate. The patient also reports some tenderness in the left lower quadrant. Of note, the patient had a surgery for a bowel repair and had multiple blood transfusions during hosp italization. REVIEW OF SYSTEMS: Constitutional: No fever, no chills. Generalized weakness. Respiratory: No co ugh, no sputum production, no shortness of breath. Cardiovascular: No chest pain, palpitations, or shortness of breath. Gastrointestinal: The patient had nausea, no vomiting. She reportedly had blo dana stools, significant amount of clots. The patient also reported lower abdominal pain. [place] System: No dizziness, headache, or feeling lightheaded. Genitourinary: No burning on urinati on. Extremities: No leg swelling. All other systems were reviewed and negative except for the find ings mentioned above. PAST MEDICAL HISTORY: Patient has reported hypothyroidism, hyperlipidemia, high cholesterol, hyperte nsion, osteoarthritis, ID in 01/2017, fibromyalgia. PAST SURGICAL HISTORY: Patient has right ovary surgery, ablation x2, cholecystectomy, hysterectomy, thyroidectomy. PSYCHIATRIC HISTORY: Anxiety. SOCIAL HISTORY: The patient lives alone. No alcohol, no drugs. No smoking history. ALLERGIES: MESALAMINE, MORPHINE, and NORVASC. REPORTED MEDICATIONS: [place] Thyroid, hydralazine, lisinopril, Inderal, prednisone, aspirin, Lasix, potassium chloride, Crestor. PHYSICAL EXAMINATION: VITAL SIGNS: On presentation, blood pressure 154/48 with heart rate 77, respiratory rate was 18. Pa in 7/10, oxygen saturation 98% on room air. GENERAL APPEARANCE: Patient is alert, oriented, in no any acute distress. HEAD AND EYES: Normal conjunctivae. Moist oral mucosa. Anicteric. NECK: No JVD. RESPIRATORY: Bilateral air entry. No rales, no wheezing. Symmetrical expansion. CARDIOVASCULAR: Normal rate, regular rhythm. No murmurs, no gallop. EXTREMITIES: No edema. ABDOMEN: Soft, normal bowel sounds. MUSCULOSKELETAL: Baseline range of motion and strength. No tenderness. SKIN: Warm and intact. No pallor, no rash, no redness. NEUROLOGIC: Baseline sensory. No evidence of any new focal weakness. Baseline speech. Cranial ner ve seems to be intact. PSYCHIATRIC: The patient is in a good mood. No anxiety. Oriented. Optimal judgement. LABORATORY AND DIAGNOSTIC DATA: EKG was reviewed. The patient had sinus rhythm with some PVCs, no s pecific ST abnormalities. DE 152, QRS 80, QT corrected 452. Abdomen and pelvis CT was done, old gra nulomatous disease, fatty liver, colonic diverticulosis without evidence of diverticulitis and consti pation. The labs were reviewed. The patient had a white count of 17.5 with hemoglobin 10, hematocri t 30, MCV 87, platelet count 318,000. No bands. Chemistry: Sodium 134, potassium 3.8, chloride 101 , carbon dioxide 16, anion gap 21, BUN 14, creatinine 0.7. GFR 79, glucose 117, calcium 9, total nelly irubin 0.5, AST 26, ALT 36, alkaline phosphatase 67, CK 19. Troponin was negative. ASSESSMENT AND PLAN: 1. Acute gastrointestinal bleed, likely lower secondary to diverticulosis. Patient presented with r ed blood per rectum with significant amount of clots. We will trend hemoglobin, last one was 8, tren d down from 10, we will monitor, will transfuse as needed. GI consult for assistance with our patient . Dr. Tello has been consulted for further recommendations. 2. Hypothyroidism, continue hormone replacement. 3. History of atrial fibrillation, continue , reconcile home meds, this problem is probably chr onic, it is controlled. 4. Leukocytosis, clear etiology, 1 gram Rocephin has been given, empiric, UA is pending. We will re concile home meds. Procalcitonin has been sent; if negative, antibiotics can be discontinued. 5. Hyponatremia. This is mild, sodium 133, no need for any acute intervention, we will monitor, rec oncile home meds. 6. Deep venous thrombosis prophylaxis.
--- NOTE | 2017-12-13 13:34 | CON ---
DATE OF CONSULTATION: 12/13/2017 CHIEF COMPLAINT: Hematochezia. HISTORY OF PRESENT ILLNESS: The patient is a 76-year-old white female well known to myself. She had a lengthy hospitalization in October for diverticulitis with perforation. I had performed a laparoscop ic washout and after that she still required a lengthy period of time before. Her infection, inflamm ation improved to the point that she was able to tolerate a diet and eventually be discharged. I hav e seen her once subsequently as an outpatient, she seemed to be doing well. I had recommended magnolia saul with elective laparoscopic left hemicolectomy, at the point that she was stable from her recent admission. She has a followup already scheduled with me in January. She has essentially been stable at home until yesterday when she began having some diarrhea that culm inated in significant bleeding per rectum. She tells me she had several bloody bowel movements. The last one was apparently last night in the emergency room when she passed a significant amount of old blood. She has had no bloody bowel movement or any bowel movements subsequently. She denies any pa in. She has not been transfused during this admission. Her hemoglobin upon presentation last night was 10.0, which was up slightly from her discharge hemoglobin level of 9.6 on 11/09/2017. After hydr ation and volume repletion, her hemoglobin dropped down to 8.1, it is 7.9 this morning. She did have leukocytosis this morning as well with a white blood cell count of 18.4 (of uncertain etiology). She currently denies any pain. The CT scan performed in the emergency room last night revealed no evidence of significant intra-abdo lyly abnormality. She did have diverticular disease and constipation. PAST MEDICAL HISTORY: 1. Constipation. 2. Diverticular disease with multiple episodes of diverticulitis with recent diverticular perforatio n. 3. Sjogren syndrome. 4. Atrial fibrillation. 5. Chronic diastolic heart dysfunction. 6. Hypertension. 7. Hypothyroidism. 8. History of Miguel Angel's crisis. 9. Gastroesophageal reflux disease. PAST SURGICAL HISTORY: 1. Thyroidectomy. 2. Hysterectomy. 3. Appendectomy. 4. Cataract surgery. 5. Cholecystectomy. 6. Ablation surgery for atrial fibrillation. 7. Watchman procedure. 8. Back surgery with kyphoplasty. 9. Upper and lower endoscopy. ALLERGIES: AMLODIPINE, MORPHINE, MESALAMINE, GABAPENTIN. CURRENT MEDICATIONS: Include prednisone and other medications. PERSONAL/SOCIAL HISTORY: She is . She has one son, who is not present at this time. REVIEW OF SYSTEMS: Otherwise, unremarkable. FAMILY HISTORY: Noncontributory. PHYSICAL EXAMINATION: VITAL SIGNS: Currently, temperature 99.3, pulse 72, blood pressure most recently was 127/63. GENERAL: She is well-developed, well-nourished, pleasant female, resting in bed. She is alert and o riented x3 and recognizes me immediately. She is conversant and without complaint HEENT: Unremarkab le. NECK: Supple. LUNGS: Clear to auscultation. CARDIAC: Regular rate and rhythm. ABDOMEN: Soft, nontender, nondistended. There is no palpable mass nor any focal area of discomfort. EXTREMITIES: Unremarkable. LABORATORY AND X-RAY FINDINGS: As mentioned, her most recent hemoglobin 7.9. Her white blood cell c ount this morning was 18.4. Her chemistry panel reveals essentially normal electrolytes. Her albumi n last night was 3.6. ASSESSMENT: The patient with some degree of gastrointestinal bleed. This most likely related to her diverticular disease. Gastroenterology consultation with Dr. Tello is pending. I am not certain t hat there is any value to a colonoscopy at this time. She is not actively bleeding (which she appare ntly is not). From my standpoint, there is no reason for consideration of surgical intervention. I suspect she will still benefit from an elective laparoscopic colon resection to prevent further episo freddie of diverticular disease. Hopefully, this is the area that the bleeding and that problem would be treated at that time as well. I will follow her while she is in the hospital and plan to see her in followup in my office in a few more weeks.
[2017-12-13 15:46] LABS: Hemoglobin 7.3 g/dL (12.0-16.0)
--- NOTE | 2017-12-13 19:36 | PDOC.PN ---
- Subjective Encounter Start Date: 12/13/17 Encounter Start Time: 13:35 Subjective: Seen and examined. Denies active BRBPR. NAD - Objective Resuscitation Status: Resuscitation Status DNR:Do Not Resuscitate Vital Signs & Weight: Vital Signs (12 hours) Temp Pulse Resp BP BP Pulse Ox 12/13/17 19:25 99.1 F 75 16 125/74 98 12/13/17 15:45 99.0 F 75 20 112/65 97 12/13/17 15:04 109/61 12/13/17 11:22 99.3 F 72 16 109/61 95 12/13/17 08:42 127/63 12/13/17 08:00 99.2 F 81 16 Result Diagrams: 12/14/17 13:16 12/14/17 03:28 Phys Exam - Physical Examination Constitutional: NAD HEENT: PERRLA, moist MMs Neck: no JVD, supple Respiratory: no wheezing, no rales, no rhonchi, clear to auscultation bilateral Cardiovascular: RRR, no significant murmur, no rub Gastrointestinal: soft, non-tender, no distention Musculoskeletal: no edema, pulses present Neurological: non-focal, normal sensation, moves all 4 limbs Psychiatric: normal affect, A&O x 3 Skin: no rash Dx/Plan (1) Acute blood loss anemia Code(s): D62 - ACUTE POSTHEMORRHAGIC ANEMIA Status: Acute Comment: Likely due to Lower GI bleed Patient will benefit from elective colectomy Will follow GI recs Will transfuse when H/H <7 will monitor CBC in the AM (2) GI bleed Code(s): K92.2 - GASTROINTESTINAL HEMORRHAGE, UNSPECIFIED Status: Acute Qualifiers: GI bleed type/associated pathology: unspecified gastrointestinal hemorrhage type Qualified Code(s): K92.2 - Gastrointestinal hemorrhage, unspecified Comment: Likely Lower GI bleed from diverticulosis of the sigmoid. avoid anticoagulation and ASA, Will transfuse when H/H <7. Follow morning CBC. Follow GI recs (3) Chronic anemia Code(s): D64.9 - ANEMIA, UNSPECIFIED Status: Chronic (4) H/O CHF Code(s): Z86.79 - PERSONAL HISTORY OF OTHER DISEASES OF THE CIRCULATORY SYSTEM Status: Chronic Comment: with diastolic dysfunction (5) Hyperlipidemia Code(s): E78.5 - HYPERLIPIDEMIA, UNSPECIFIED Status: Chronic Qualifiers: Hyperlipidemia type: unspecified Qualified Code(s): E78.5 - Hyperlipidemia , unspecified (6) Hypertension Code(s): I10 - ESSENTIAL (PRIMARY) HYPERTENSION Status: Chronic Qualifiers: Hypertension type: essential hypertension Qualified Code(s): I10 - Essential (primary) hypertension (7) Hypothyroidism Code(s): E03.9 - HYPOTHYROIDISM, UNSPECIFIED Status: Chronic Qualifiers: Hypothyroidism type: acquired Qualified Code(s): E03.9 - Hypothyroidism, unspecified (8) Sjogren's syndrome Code(s): M35.00 - SICCA SYNDROME, UNSPECIFIED Status: Chronic Qualifiers: Sjogren's organ involvement: unspecified organ involvement Qualified Code(s ): M35.00 - Sicca syndrome, unspecified - Plan * . Review of Systems - Medications/Allergies Allergies/Adverse Reactions: Allergies Allergy/AdvReac Type Severity Reaction Status Date / Time amlodipine Allergy "swelled Verified 10/20/17 14:12 in feet and legs" Medications: Current Medications Acetaminophen (Tylenol) 650 mg PO Q4H PRN PRN Reason: Headache/Fever or Pain Hydrocodone Bitart/Acetaminophen ([place] 5/325) 1 tab PO Q6H PRN PRN Reason: Moderate to Severe Pain (6-10) Last Admin: 12/13/17 03:21 Dose: 1 tab Al Hydroxide/Mg Hydroxide (Maalox) 30 ml PO TIDPRN PRN PRN Reason: Heartburn or Indigestion Albuterol Sulfate (Ventolin) 2.5 mg NEB Q4H PRN PRN Reason: Wheezing Bisacodyl (Dulcolax) 10 mg PO DAILYPRN PRN PRN Reason: Constipation Buspirone HCl (Buspar) 10 mg PO HS [facility] Clonidine (Catapres) 0.3 mg PO TID [facility] Last Admin: 12/13/17 15:04 Dose: Not Given Diltiazem HCl (Cardizem Cd) 180 mg PO DAILY [facility] Last Admin: 12/13/17 08:43 Dose: 180 mg Folic Acid (Folvite) 0.5 mg PO DAILY [facility] Last Admin: 12/13/17 08:44 Dose: 0.5 mg Ceftriaxone Sodium 1 gm/ (Sodium Chloride) 100 mls @ 200 mls/hr IVPB Q24HR [facility] Last Admin: 12/13/17 06:03 Dose: 100 mls Iron/Minerals/Multivitamins (Theragran M) 1 tab PO DAILY [facility] Last Admin: 12/13/17 08:46 Dose: 1 tab Loperamide HCl (Imodium) 2 mg PO QIDPRN PRN PRN Reason: Diarrhea/Loose Stools Metoprolol Tartrate (Lopressor) 25 mg PO BID [facility] Last Admin: 12/13/17 08:44 Dose: 25 mg Mesalamine 3.6 Grams 0 each PO DAILY [facility] Polyethylene Glycol (Miralax) 17 gm PO DAILY [facility] Last Admin: 12/13/17 08:46 Dose: Not Given Potassium Chloride (K-Dur) 20 meq PO BID [facility] Last Admin: 12/13/17 08:45 Dose: 20 meq Prednisone (Prednisone) 15 mg PO DAILY [facility] Last Admin: 12/13/17 08:43 Dose: 15 mg Rosuvastatin Calcium (Crestor) 10 mg PO HS [facility] Saccharomyces Boulardii (Florastor) 250 mg PO DAILY [facility] Last Admin: 12/13/17 08:44 Dose: 250 mg Thyroid ([place] Thyroid) 60 mg PO 0600 [facility] Last Admin: 12/13/17 06:03 Dose: 60 mg
[2017-12-13 21:20] LABS: Hemoglobin 7.4 g/dL (12.0-16.0)
[2017-12-13] MEDS: busPIRone HCl 10 MG TAB PO SCH (21:27)
[2017-12-13] MEDS: Rosuvastatin 10 MG TAB PO SCH (21:28)
--- NOTE | 2017-12-13 22:17 | CON ---
DATE OF CONSULTATION: 12/13/2017 HISTORY OF PRESENT ILLNESS: Ms. Carrera is a 76-year-old female with known history of diverticular dis ease and renal insufficiency. She was recently in the hospital in October with diverticulitis with per foration, was managed conservatively with a consideration of resection and surgical intervention in a few months. Today, however, the patient presented to the emergency room with bleeding. She states last night she began to have diarrhea and mild cramping, had diarrhea with bloody stool that was brianne g about every 40 minutes. Ultimately, she began to feel weak and her blood pressure was getting real ly high, so she came to the emergency room. She had no further bleeding since she has been admitted. Some of the bloody bowel movements had some clot. There was also quite a bit of old blood in the e mergency room. She has been n.p.o. since she came in. She has not had any transfusions yet. She be d a CAT scan last night, which showed diffuse diverticular disease, but no inflammation or inflammato ry changes. Dr. Simmons from Gastroenterology was consulted when the patient arrived to the emergency r oom and he suggested a bleeding scan if she were to continue to bleed, but this was not apparently fe lt necessary, so it was not ordered. PAST MEDICAL HISTORY: 1. Constipation. 2. Diverticular disease, multiple episodes of diverticulitis, recent diverticular perforation. 3. Sjogren syndrome. 4. 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 5. AFib. 6. Chronic diastolic heart failure. 7. Hypertension. 8. Hypothyroidism. 9. Reflux. PAST SURGICAL HISTORY: Thyroidectomy, hysterectomy, appendectomy, cataract surgery, cholecystectomy. The patient had a colonoscopy within the last 6 months, which showed diverticular disease. Ablatio n surgery for atrial fibrillation, Watchman procedure, back surgery for kyphosis, upper and lower end oscopy as above. ALLERGIES: AMLODIPINE, MORPHINE, MESALAMINE, GABAPENTIN. CURRENT MEDICATIONS: Home list reviewed and agreed with that list from the summary sheet here in [facility] medical record. PRESENT MEDICATIONS: Tylenol, Maalox, Ventolin, Dulcolax, BuSpar, ceftriaxone, Catapres, Norvasc, Th eragran, Imodium, Lopressor, MiraLax, K-Dur, prednisone, Crestor, Florastor. PHYSICAL EXAMINATION: VITAL SIGNS: Temperature is 99, blood pressure is 127/88. GENERAL: She is resting comfortably in bed. She is in no distress. She is reclining. HEENT: Conjunctivae and sclerae are clear. She is somewhat pale. LUNGS: Clear. HEART: Regular rate and rhythm. ABDOMEN: Soft and nontender. There is no rebound. There is no guarding. EXTREMITIES: No clubbing, cyanosis, edema. LABORATORY DATA: White count was 18.4, 17.5 yesterday; hemoglobin is 7.3, platelet count is 261. Wh ite count was 8.9 on 11/09/2017. Sodium 133, potassium 3.9, bicarb 101, chloride 23, BUN and creatin ine are 15 and 0.68. ASSESSMENT: Gastrointestinal bleeding. She does have a leukocytosis, which is probably reactive. T here were no overt signs of chronic colitis, but she may have a component of ischemic colitis, althou gh the CAT scan does not really show this. She does not have the pain typically expected that, but s he does have leukocytosis. We will consider multiple risk factors for poor blood flow . Additionally, this may just be a standard diverticular bleed. It does not appear that she has any si gns of diverticulitis at this time. RECOMMENDATIONS: 1. Monitor H&H. 2. Liquid diet. If the patient has overt hemorrhage then a tagged scan would be reasonable. If she develops fever or leukocytosis, I would cover with antibiotics.
[2017-12-13] MEDS ORDERED: MESALAMINE 1.2 GM PO SCH (23:00)
[2017-12-14 04:45] LABS: #Eosinphils 0.2 thou/uL (0.0-0.7); #Lymphocytes 3.7 thou/uL (1.20-3.40); #Neutrophils 7.5 thou/uL (1.40-6.50); %Basophils 0.1 % (0.0-1.0); %Eosinophils 1.4 % (0.0-10.0); %Lymphocytes 29.8 % (21.0-51.0); %Monocytes 8.3 % (0.0-10.0); %Neutrophils 60.4 % (42.0-75.0); Hemoglobin 7.1 g/dL (12.0-16.0); Mean Corpuscular HGB CONC 34.1 g/dL (32.0-36.0); Mean Corpuscular Hemoglobin 30.1 pg (27.0-31.0); Mean Corpuscular Volume 88.1 fL (78.0-98.0); Mean Platelet Volume 7.5 fL (7.4-10.4); Platelet Count 225 thou/uL (130-400); RBC Distribution Width 13.8 % (11.5-14.5); Red Blood Cell (RBC) Count 2.34 mill/uL (4.20-5.40); White Blood Cell (WBC) Count 12.5 thou/uL (4.8-10.8)
[2017-12-14 04:59] LABS: Anion Gap 11 mmol/L (10-20); BUN (Urea Nitrogen) 12 mg/dL (9.8-20.1); Calc. Creatinine Clearance 68 mL/min (70-130); Calcium 8.5 mg/dL (7.8-10.44); Carbon Dioxide 24 mmol/L (23-31); Chloride 103 mmol/L (98-107); Estimated GFR-MDRD 89; Glucose 100 mg/dL (83-110); Potassium 4.1 mmol/L (3.5-5.1); Sodium 134 mmol/L (136-145)
[2017-12-14] MEDS: cefTRIAXone\\ROCEPHIN 1 GM in Sodium Chloride 0.9% 100 ML IVPB SCH (05:35)
[2017-12-14] MEDS: Thyroid 60 MG TAB PO SCH (05:36)
[2017-12-14] MEDS: Saccharomyces boulardii 250 MG CAP PO SCH (08:47)
[2017-12-14] MEDS: Folic Acid 1 MG TAB PO SCH (08:47)
[2017-12-14] MEDS: Polyethylene Glycol 3350 17 GM Packet PO SCH (08:47)
[2017-12-14] MEDS: Potassium Chloride 20 MEQ TAB PO SCH ×2 (08:48→20:59)
[2017-12-14] MEDS: predniSONE 5 MG TAB PO SCH (08:48)
[2017-12-14] MEDS: Metoprolol Tartrate 25 MG TAB PO SCH ×2 (08:48→20:59)
[2017-12-14] MEDS: Multivitamin W/ Minerals 1 TAB PO SCH (08:48)
[2017-12-14] MEDS: cloNIDine 0.3 MG TAB PO SCH ×3 (08:52→20:58)
[2017-12-14] MEDS: MESALAMINE 1.2 GM PO SCH ×2 (08:53)
--- NOTE | 2017-12-14 09:54 | PDOC.PN ---
- Subjective Encounter Start Date: 12/14/17 Encounter Start Time: 09:54 Subjective: Seen and Examined. NAD. Denies any complaints. - Objective Resuscitation Status: Resuscitation Status DNR:Do Not Resuscitate Vital Signs & Weight: Vital Signs (12 hours) Temp Pulse Resp BP BP Pulse Ox 12/14/17 08:52 121/77 12/14/17 07:58 98.8 F 70 16 121/77 98 I&O: 12/13/17 12/14/17 12/15/17 06:59 06:59 06:59 Intake Total 730 Output Total 450 Balance 280 Result Diagrams: 12/14/17 13:16 12/14/17 03:28 Phys Exam - Physical Examination HEENT: PERRLA, moist MMs Neck: no JVD Respiratory: no wheezing, no rales, no rhonchi Cardiovascular: RRR, no significant murmur, no rub Gastrointestinal: soft, non-tender, no distention, positive bowel sounds Musculoskeletal: no edema, pulses present Neurological: non-focal, normal sensation, moves all 4 limbs Psychiatric: normal affect, A&O x 3 Skin: no rash, normal turgor Dx/Plan (1) Acute blood loss anemia Code(s): D62 - ACUTE POSTHEMORRHAGIC ANEMIA Status: Acute Comment: Likely due to Lower GI bleed Patient will benefit from elective colectomy Will follow GI recs Will transfuse when H/H <7 will monitor CBC in the AM (2) GI bleed Code(s): K92.2 - GASTROINTESTINAL HEMORRHAGE, UNSPECIFIED Status: Acute Qualifiers: GI bleed type/associated pathology: unspecified gastrointestinal hemorrhage type Qualified Code(s): K92.2 - Gastrointestinal hemorrhage, unspecified Comment: Likely Lower GI bleed from diverticulosis of the sigmoid. avoid anticoagulation and ASA, Will transfuse when H/H <7. Follow morning CBC. Follow GI recs (3) Chronic anemia Code(s): D64.9 - ANEMIA, UNSPECIFIED Status: Chronic (4) H/O CHF Code(s): Z86.79 - PERSONAL HISTORY OF OTHER DISEASES OF THE CIRCULATORY SYSTEM Status: Chronic Comment: with diastolic dysfunction (5) Hyperlipidemia Code(s): E78.5 - HYPERLIPIDEMIA, UNSPECIFIED Status: Chronic Qualifiers: Hyperlipidemia type: unspecified Qualified Code(s): E78.5 - Hyperlipidemia , unspecified (6) Hypertension Code(s): I10 - ESSENTIAL (PRIMARY) HYPERTENSION Status: Chronic Qualifiers: Hypertension type: essential hypertension Qualified Code(s): I10 - Essential (primary) hypertension (7) Hypothyroidism Code(s): E03.9 - HYPOTHYROIDISM, UNSPECIFIED Status: Chronic Qualifiers: Hypothyroidism type: acquired Qualified Code(s): E03.9 - Hypothyroidism, unspecified (8) Sjogren's syndrome Code(s): M35.00 - SICCA SYNDROME, UNSPECIFIED Status: Chronic Qualifiers: Sjogren's organ involvement: unspecified organ involvement Qualified Code(s ): M35.00 - Sicca syndrome, unspecified - Plan * . Review of Systems - Medications/Allergies Allergies/Adverse Reactions: Allergies Allergy/AdvReac Type Severity Reaction Status Date / Time amlodipine Allergy "swelled Verified 10/20/17 14:12 in feet and legs" Medications: Current Medications Acetaminophen (Tylenol) 650 mg PO Q4H PRN PRN Reason: Headache/Fever or Pain Hydrocodone Bitart/Acetaminophen ([place] 5/325) 1 tab PO Q6H PRN PRN Reason: Moderate to Severe Pain (6-10) Last Admin: 12/13/17 03:21 Dose: 1 tab Al Hydroxide/Mg Hydroxide (Maalox) 30 ml PO TIDPRN PRN PRN Reason: Heartburn or Indigestion Albuterol Sulfate (Ventolin) 2.5 mg NEB Q4H PRN PRN Reason: Wheezing Bisacodyl (Dulcolax) 10 mg PO DAILYPRN PRN PRN Reason: Constipation Buspirone HCl (Buspar) 10 mg PO HS [facility] Last Admin: 12/13/17 21:27 Dose: Not Given Clonidine (Catapres) 0.3 mg PO TID [facility] Last Admin: 12/14/17 08:52 Dose: 0.3 mg Diltiazem HCl (Cardizem Cd) 180 mg PO DAILY [facility] Last Admin: 12/14/17 08:48 Dose: 180 mg Folic Acid (Folvite) 0.5 mg PO DAILY [facility] Last Admin: 12/14/17 08:47 Dose: 0.5 mg Ceftriaxone Sodium 1 gm/ (Sodium Chloride) 100 mls @ 200 mls/hr IVPB Q24HR [facility] Last Admin: 12/14/17 05:35 Dose: 100 mls Iron/Minerals/Multivitamins (Theragran M) 1 tab PO DAILY [facility] Last Admin: 12/14/17 08:48 Dose: 1 tab Loperamide HCl (Imodium) 2 mg PO QIDPRN PRN PRN Reason: Diarrhea/Loose Stools Metoprolol Tartrate (Lopressor) 25 mg PO BID [facility] Last Admin: 12/14/17 08:48 Dose: 25 mg Mesalamine 1.2 Gm (Tabs) 0 each PO DAILY [facility] Last Admin: 12/14/17 08:53 Dose: 1 each Polyethylene Glycol (Miralax) 17 gm PO DAILY [facility] Last Admin: 12/14/17 08:47 Dose: Not Given Potassium Chloride (K-Dur) 20 meq PO BID [facility] Last Admin: 12/14/17 08:48 Dose: 20 meq Prednisone (Prednisone) 15 mg PO DAILY [facility] Last Admin: 12/14/17 08:48 Dose: 15 mg Rosuvastatin Calcium (Crestor) 10 mg PO HS [facility] Last Admin: 12/13/17 21:28 Dose: 10 mg Saccharomyces Boulardii (Florastor) 250 mg PO DAILY [facility] Last Admin: 12/14/17 08:47 Dose: 250 mg Thyroid ([place] Thyroid) 60 mg PO 0600 [facility] Last Admin: 12/14/17 05:36 Dose: 60 mg
[2017-12-14 13:33] LABS: Hemoglobin 7.1 g/dL (12.0-16.0); Mean Corpuscular HGB CONC 34.5 g/dL (32.0-36.0); Mean Corpuscular Hemoglobin 30.2 pg (27.0-31.0); Mean Corpuscular Volume 87.4 fL (78.0-98.0); Mean Platelet Volume 6.6 fL (7.4-10.4); Platelet Count 218 thou/uL (130-400); RBC Distribution Width 13.6 % (11.5-14.5); Red Blood Cell (RBC) Count 2.36 mill/uL (4.20-5.40); White Blood Cell (WBC) Count 11.4 thou/uL (4.8-10.8)
[2017-12-14] MEDS: Acetaminophen 325 MG TAB PO PRN (14:51)
[2017-12-14] MEDS: busPIRone HCl 10 MG TAB PO SCH (20:58)
[2017-12-14] MEDS: Rosuvastatin 10 MG TAB PO SCH (20:59)
[2017-12-15 04:03] LABS: Hemoglobin 7.3 g/dL (12.0-16.0); Mean Corpuscular HGB CONC 33.9 g/dL (32.0-36.0); Mean Corpuscular Hemoglobin 29.9 pg (27.0-31.0); Mean Corpuscular Volume 88.3 fL (78.0-98.0); Mean Platelet Volume 6.3 fL (7.4-10.4); Platelet Count 240 thou/uL (130-400); Red Blood Cell (RBC) Count 2.43 mill/uL (4.20-5.40); White Blood Cell (WBC) Count 10.6 thou/uL (4.8-10.8)
[2017-12-15] MEDS: cefTRIAXone\\ROCEPHIN 1 GM in Sodium Chloride 0.9% 100 ML IVPB SCH (05:38)
[2017-12-15] MEDS: Thyroid 60 MG TAB PO SCH (05:38)
[2017-12-15] MEDS: Acetaminophen 325 MG TAB PO PRN (05:53)
[2017-12-15] MEDS: Folic Acid 1 MG TAB PO SCH (09:01)
[2017-12-15] MEDS: Multivitamin W/ Minerals 1 TAB PO SCH (09:01)
[2017-12-15] MEDS: Saccharomyces boulardii 250 MG CAP PO SCH (09:01)
[2017-12-15] MEDS: cloNIDine 0.3 MG TAB PO SCH (09:01)
[2017-12-15] MEDS: Metoprolol Tartrate 25 MG TAB PO SCH (09:01)
[2017-12-15] MEDS: predniSONE 5 MG TAB PO SCH (09:01)
[2017-12-15] MEDS: Polyethylene Glycol 3350 17 GM Packet PO SCH (09:04)
[2017-12-15] MEDS: MESALAMINE 1.2 GM PO SCH (09:04)
[2017-12-15] MEDS: Potassium Chloride 20 MEQ TAB PO SCH (09:05)
--- NOTE | 2017-12-15 14:33 | PRG ---
DATE OF SERVICE: 12/14/2017 GI FOLLOWUP SUBJECTIVE: Ms. Carrera has had no further bleeding. She is on clear liquid diet. She has very limi parveen mild sore pain in the left lower quadrant. PHYSICAL EXAMINATION: VITAL SIGNS: Temperature 98.6, pulse 70, blood pressure 121/77. ABDOMEN: Soft and nontender. GENERAL: Patient is resting comfortably in bed, in no distress. EXTREMITIES: No clubbing, cyanosis or edema. LABORATORY STUDIES: Hemoglobin 11.4, white count 7.4, platelet count 218. Electrolytes within silke l limits ASSESSMENT AND PLAN: Lower gastrointestinal bleeding, resolved. This could be related to complicati on of diverticulitis, diverticulosis, maybe colitis or mild ischemia. In any event, all bleeding has stopped, we would advance diet as tolerated. Check hemoglobin and hematocrit in the morning. If femi vargas remains stable, I think she can go home with advancing diet. If she is symptomatic with her anemia , it would be reasonable to transfuse her.
--- NOTE | 2017-12-15 14:38 | PRG ---
DATE OF SERVICE: 12/15/2017 SUBJECTIVE: Ms. Carrera is hospital day #3 following admission for GI bleeding. This is presumed to h ave been a diverticular bleed. She has been without pain since her admission. She denies any furthe r blood per rectum. She is tolerating her diet and ambulating with assistance of a walker. PHYSICAL EXAMINATION: VITAL SIGNS: She is afebrile, pulse 71, blood pressure 120/65. LUNGS: Clear to auscultation. ABDOMEN: Soft and nontender. She does have some mild discomfort to deeper palpation in the left upp er abdomen in the area of her prior diverticular perforation. LABORATORY STUDIES: Her hemoglobin is stable at 7.3, one is low at 7.1 yesterday. Her chemistry pro file was essentially unremarkable. ASSESSMENT: The patient is stable with no evidence of ongoing gastrointestinal bleeding. She did no t have a colonoscopy during this hospitalization. She is probably safe for discharge home. I would recommend that she be on oral iron supplementation as well as a daily multivitamin. I will see her jim blackwell in the office in January as previously scheduled.
[2017-12-15 14:46] VITALS: BP 137/69; TEMP 98.4
--- NOTE | 2017-12-16 14:28 | DIS ---
The patient was seen and examined by me with general surgeon in the room. The patient states that sh e was doing well, did not complain of any fever, nausea, vomiting. The patient does not have any acu te events overnight. PHYSICAL EXAMINATION: VITAL SIGNS: Temperature 98.4, pulse is 85, blood pressure is 137/69, respiratory rate of 18, O2 sat of 98 on room air. GENERAL: The patient appears stated age, lying in bed comfortably, does not have any acute distress. HEENT: Normocephalic, atraumatic. Pupils are equally round and reactive to light. Extraocular homa rs are intact. NECK: No JVD. CARDIOVASCULAR: Positive S1, S2. Regular rate and rhythm. LUNGS: Clear to auscultation bilaterally. ABDOMEN: Soft, nontender, nondistended. DISCHARGE DIAGNOSES: 1. Anemia of acute blood loss, likely due to left-sided diverticulosis. 2. Gastrointestinal bleed, likely due to diverticulosis. 3. Chronic anemia. 4. History of heart failure with diastolic dysfunction. 5. Hyperlipidemia. 6. Hypertension. 7. Hypothyroidism. 8. Sjogren's syndrome. HOSPITAL COURSE: This is a 76-year-old female with past medical history of diverticular bleed in the past, complicated perforated diverticular disease, who came to the hospital with bloody stools. The patient states that her symptoms were also associated with nausea, feeling lightheaded. In the hosp ital, the patient was monitored for any blood per rectum. However, patient's stool did not have any blood. The patient stated she was feeling well. Hemoglobin was checked and trended throughout brittany pablo's visit and hemoglobin was stable at 7, therefore we will not transfuse the patient because the dinesh ley's hemoglobin was about 7. GI was consulted. GI stated that since the patient was recently sco ped, there was no need for another scope. Surgery was consulted and per Surgery, an appointment has been scheduled in January for patient to follow up outpatient for possible elective colectomy. At this point, since the patient takes numerous medications and patient is on steroids. The patient has to be medically stable before any procedure can be done. LABORATORY DATA: On admission, the patient's white count was 12.5. Hemoglobin started from 12/14/19 18 was 7.9 and trended around 7.3, 7.4, 7.1 and stabilized around 7.3 DISPOSITION: The patient was stable and in good condition. The patient was ambulating on her own. The patient was tolerating diet before discharge. The patient encounter for this discharge is about 32 minutes.
== END 2017-12-15 14:50 | disposition home or self-care (01) | DRG 378 ==
LOC: ERS 20:47 → T4-A 12-13 01:27
PROVIDERS: ADMIT Hospitalist; ATTEND Hospitalist
DX: K57.31 Diverticulosis of large intestine without perforation or abscess with bleeding (principal); D62 Acute posthemorrhagic anemia; E87.1 Hypo-osmolality and hyponatremia; I50.30 Unspecified diastolic (congestive) heart failure; E27.3 Drug-induced adrenocortical insufficiency; E03.9 Hypothyroidism, unspecified; I48.91 Unspecified atrial fibrillation; Z79.01 Long term (current) use of anticoagulants; M35.00 Sjogren syndrome, unspecified; E78.5 Hyperlipidemia, unspecified; I11.0 Hypertensive heart disease with heart failure; K21.9 Gastro-esophageal reflux disease without esophagitis; T38.0X5D Adverse effect of glucocorticoids and synthetic analogues, subsequent encounter
CPT/HCPCS: 36415; 74177; 80048; 80053; 81003; 82274; 82550; 82553; 84145; 84484; 85014; 85018; 85025; 85027; 86850; 86900; 86901; 87040; 93005; G8978-GP-CI; G8979-GP-CI; G8980-GP-CI; J0696; J2270; J7050

== ENCOUNTER 2018-01-31 13:33 | Outpatient (CLI) | payer MEDICARE, BC ==
[2018-01-31 15:14] LABS: #Basophils 0.1 thou/uL (0.0-0.2); #Lymphocytes 3.2 thou/uL (1.20-3.40); #Monocytes 0.5 thou/uL (0.11-0.59); #Neutrophils 9.6 thou/uL (1.40-6.50); %Basophils 0.8 % (0.0-1.0); %Eosinophils 0.2 % (0.0-10.0); %Lymphocytes 24.2 % (21.0-51.0); %Monocytes 3.5 % (0.0-10.0); %Neutrophils 71.3 % (42.0-75.0); Hemoglobin 11.6 g/dL (12.0-16.0); Mean Corpuscular HGB CONC 32.3 g/dL (32.0-36.0); Mean Corpuscular Hemoglobin 28.5 pg (27.0-31.0); Mean Corpuscular Volume 88.2 fL (78.0-98.0); Mean Platelet Volume 5.8 fL (7.4-10.4); Platelet Count 335 thou/uL (130-400); RBC Distribution Width 13.4 % (11.5-14.5); Red Blood Cell (RBC) Count 4.08 mill/uL (4.20-5.40); White Blood Cell (WBC) Count 13.4 thou/uL (4.8-10.8)
[2018-01-31 15:20] LABS: ALT (SGPT) 23 U/L (8-55); AST (SGOT) 21 U/L (5-34); Albumin 3.8 g/dL (3.4-4.8); Alkaline Phosphatase 89 U/L (40-150); Anion Gap 14 mmol/L (10-20); BUN (Urea Nitrogen) 12 mg/dL (9.8-20.1); Bilirubin, Total 0.3 mg/dL (0.2-1.2); Calc. Creatinine Clearance 0 mL/min (70-130); Calcium 9.6 mg/dL (7.8-10.44); Carbon Dioxide 26 mmol/L (23-31); Chloride 100 mmol/L (98-107); Estimated GFR-MDRD 82; Globulin 2.8 g/dL (2.4-3.5); Glucose 123 mg/dL (83-110); Potassium 4.8 mmol/L (3.5-5.1); Protein, Total 6.6 g/dL (6.0-8.3); Sodium 135 mmol/L (136-145)
--- NOTE | 2018-01-31 15:26 | RAD ---
SACRUM AND COCCYX 3 VIEWS: Date: 01/31/18 HISTORY: Sacroiliitis. FINDINGS: The bones are demineralized. There are some arthritic changes of the SI joints. No bony erosive tello e or ankylosis is appreciated. If patient is having persistent pain, given the degree of bone deminer alization, the possibility of occult fracture should be considered. Consideration for CT or MRI to ev aluate for pelvic insufficiency fractures would be recommended. IMPRESSION: Generalized bony demineralization. No definite acute injury. Consideration for CT or MRI for evaluati on for subtle fracture would be suggested, if indicated. POS: [facility]
--- NOTE | 2018-01-31 16:11 | MRI ---
MRI OF THORACIC SPINE PERFORMED WITHOUT CONTRAST ENHANCEMENT: 01/31/18 HISTORY: Patient has had pain in between shoulders for months. COMPARISON: CT examination of the abdomen performed 12/12/17. Vertebroplasty changes are noted at the T11 and T12 levels. The compression of L1 vertebral body is s imilar to the prior examination. There is now edema changes involving the superior end plate of L2 yeh ggesting some new element of mild compression change. There is also older compression changes of the T5 vertebral body and superior end plate of T8. I do not see any abnormality in the upper thoracic spine. Cord signal change appears normal. No parav ertebral mass. There is a large left sided disc protrusion at the T11-12 level. This is associated wi th marked canal narrowing. This extends out the left foramen. IMPRESSION: 1. Large left paracentral disc protrusion/extrusion at the T11-12 level. This causes significant impression on the cord with marked canal narrowing. 2. Stable vertebroplasty changes of T11 and T12. Also stable appearance to the L1 compression ch gigi. 3. Edema change of the superior end plate of L2 with minimal compression but this does appear t o be a new compression injury. 4. Findings telephoned to Poli Gomez at the time of this dictation. POS: [facility]
== END 2018-01-31 13:34 | disposition home or self-care (01) ==
LOC: SCSMRI 13:33
PROVIDERS: ATTEND Nurse Practitioner Family
DX: M46.1 Sacroiliitis, not elsewhere classified (principal); S22.008A Other fracture of unspecified thoracic vertebra, initial encounter for closed fracture; R19.7 Diarrhea, unspecified; D64.9 Anemia, unspecified; M81.0 Age-related osteoporosis without current pathological fracture; M51.24 Other intervertebral disc displacement, thoracic region; M48.04 Spinal stenosis, thoracic region; Z98.890 Other specified postprocedural states
CPT/HCPCS: 36415; 72146; 72220; 80053; 85025

== ENCOUNTER 2018-02-20 04:56 | Emergency (ER) | payer MEDICARE, BC ==
[2018-02-20] MEDS ORDERED: Oxymetazoline HCl 0.05% ( 15 ML ) ONE (05:03)
[2018-02-20 05:37] LABS: #Eosinphils 0.1 thou/uL (0.0-0.7); #Lymphocytes 1.8 thou/uL (1.20-3.40); #Monocytes 0.3 thou/uL (0.11-0.59); #Neutrophils 10.9 thou/uL (1.40-6.50); %Eosinophils 0.5 % (0.0-10.0); %Lymphocytes 13.7 % (21.0-51.0); %Monocytes 2.2 % (0.0-10.0); %Neutrophils 83.5 % (42.0-75.0); Hemoglobin 11.5 g/dL (12.0-16.0); Mean Corpuscular HGB CONC 31.5 g/dL (32.0-36.0); Mean Corpuscular Hemoglobin 28.2 pg (27.0-31.0); Mean Corpuscular Volume 89.3 fL (78.0-98.0); Mean Platelet Volume 6.7 fL (7.4-10.4); Platelet Count 349 thou/uL (130-400); RBC Distribution Width 14.1 % (11.5-14.5); White Blood Cell (WBC) Count 13.1 thou/uL (4.8-10.8)
[2018-02-20 06:04] LABS: ALT (SGPT) 14 U/L (8-55); AST (SGOT) 12 U/L (5-34); Albumin 3.7 g/dL (3.4-4.8); Alkaline Phosphatase 64 U/L (40-150); Anion Gap 15 mmol/L (10-20); BUN (Urea Nitrogen) 12 mg/dL (9.8-20.1); Bilirubin, Total 0.4 mg/dL (0.2-1.2); Calc. Creatinine Clearance 0 mL/min (70-130); Calcium 9.5 mg/dL (7.8-10.44); Carbon Dioxide 23 mmol/L (23-31); Chloride 100 mmol/L (98-107); Estimated GFR-MDRD 90; Globulin 3.1 g/dL (2.4-3.5); Glucose 164 mg/dL (83-110); Potassium 4.3 mmol/L (3.5-5.1); Protein, Total 6.8 g/dL (6.0-8.3); Sodium 134 mmol/L (136-145)
== END 2018-02-20 07:20 | disposition home or self-care (01) ==
LOC: ERS 04:56
DX: R04.0 Epistaxis (principal); I48.91 Unspecified atrial fibrillation; E03.9 Hypothyroidism, unspecified; E78.5 Hyperlipidemia, unspecified; I10 Essential (primary) hypertension; I25.2 Old myocardial infarction; F41.9 Anxiety disorder, unspecified; Z79.899 Other long term (current) drug therapy
CPT/HCPCS: 36415; 80053; 85025; 85610; 85730; 99283

== ENCOUNTER 2018-03-22 13:01 | Outpatient (CLI) | payer MEDICARE, BC ==
--- NOTE | 2018-03-22 14:24 | RAD ---
CHEST 2 VIEWS: HISTORY: Dyspnea. COMPARISON: Chest radiograph 10/24/2017. FINDINGS: Heart size is mildly enlarged. Chronic interstitial markings of lung bases. No pneumothorax. The bones are osteoporotic with multiple compression fracture of the lower thoracic spine and upper lumbar spine, a few of which contain cement, not all of these fractures contain ceme nt. IMPRESSION: 1. Chronic changes. No acute intrathoracic abnormality. 2. Osteoporotic bones with numerous compression fractures. POS: [facility]
== END 2018-03-22 13:02 | disposition home or self-care (01) ==
LOC: RAD 13:01
PROVIDERS: ATTEND Internal Medicine Critical Care Medicine
DX: R06.00 Dyspnea, unspecified (principal); M80.88XA Other osteoporosis with current pathological fracture, vertebra(e), initial encounter for fracture
CPT/HCPCS: 71046

== ENCOUNTER 2018-04-08 09:30 | Inpatient (IN) | payer MEDICARE, BC ==
[2018-04-08 10:10] LABS: #Eosinphils 0.2 thou/uL (0.0-0.7); #Lymphocytes 3.5 thou/uL (1.20-3.40); #Monocytes 0.9 thou/uL (0.11-0.59); #Neutrophils 7.4 thou/uL (1.40-6.50); %Basophils 0.3 % (0.0-1.0); %Eosinophils 1.8 % (0.0-10.0); %Lymphocytes 29.2 % (21.0-51.0); %Monocytes 7.2 % (0.0-10.0); %Neutrophils 61.5 % (42.0-75.0); Hemoglobin 9.9 g/dL (12.0-16.0); Mean Corpuscular HGB CONC 32.4 g/dL (32.0-36.0); Mean Corpuscular Hemoglobin 27.6 pg (27.0-31.0); Mean Platelet Volume 7.1 fL (7.4-10.4); Platelet Count 347 thou/uL (130-400); RBC Distribution Width 15.1 % (11.5-14.5); Red Blood Cell (RBC) Count 3.59 mill/uL (4.20-5.40); White Blood Cell (WBC) Count 12.1 thou/uL (4.8-10.8)
--- NOTE | 2018-04-08 10:20 | RAD ---
CHEST 1 VIEW: HISTORY: A 77-year-old female with back pain, dyspnea. COMPARISON: 03/22/2018. FINDINGS: Monitor leads overlie the chest. Borderline cardiomegaly. Stable minimal increased linear and inter stitial markings bilaterally and linear densities in the right mid lung zone. IMPRESSION: No acute intrathoracic disease. Old vertebroplasty changes. Atherosclerosis of the aorta. POS: [facility]
[2018-04-08 10:31] LABS: ALT (SGPT) 15 U/L (8-55); AST (SGOT) 17 U/L (5-34); Albumin 3.5 g/dL (3.4-4.8); Alkaline Phosphatase 69 U/L (40-150); Anion Gap 14 mmol/L (10-20); BUN (Urea Nitrogen) 19 mg/dL (9.8-20.1); Bilirubin, Total 0.3 mg/dL (0.2-1.2); CK (CPK) 24 U/L (29-168); Calc. Creatinine Clearance 0 mL/min (70-130); Carbon Dioxide 23 mmol/L (23-31); Chloride 101 mmol/L (98-107); Estimated GFR-MDRD 76; Globulin 2.8 g/dL (2.4-3.5); Glucose 172 mg/dL (83-110); Lipase 17 U/L (8-78); Magnesium 2.1 mg/dL (1.6-2.6); Potassium 5.1 mmol/L (3.5-5.1); Protein, Total 6.3 g/dL (6.0-8.3); Sodium 133 mmol/L (136-145)
[2018-04-08 10:34] LABS: CKMB 1.5 ng/mL (0-6.6); Troponin I Less than 0.010 ng/mL (< 0.028)
--- NOTE | 2018-04-08 11:35 | PDOC.FPRHP ---
- History of Present Illness Chief Complaint: light headedness History of Present Illness: This is a 77yo F with pmh of Afib (s/p watchman and multiple ablations on toprol and cardizem at home) presenting with 1 day history of light headedness. Pt reports yesterday she had intermittent episodes of light headedness and spinning perception that spontaneously resolved. This AM she had return of symptoms and called EMS. Of note she had medication changes made 2 weeks ago with cardiology appointment (DCing metoprolol and starting propranolol. Reports HR this AM was near 100 and she took her discontinued metoprolol without consulting an MD. HR on presentation to ED was in 30's and pt remained symptomatic. Other complaints of whole body electric pain that was abrupt in onset and resolved spontaneously. Pt reports she has been feeling this since she has had a herniated disc in spine and follows Neurology for this. ED Course: Cards () consulted from ED. EKG afib with bradycardia. CXR no acute processes - Allergies/Adverse Reactions Allergies Allergy/AdvReac Type Severity Reaction Status Date / Time amlodipine Allergy "swelled Verified 10/20/17 14:12 in feet and legs" - Home Medications Medication Instructions Recorded Confirmed Type Clonidine HCl 0.3 mg PO TID 03/09/16 04/08/18 History Thyroid [[place] Thyroid] 60 mg PO QAM 03/09/16 04/08/18 History Rosuvastatin [Crestor] 10 mg PO DAILY 06/09/17 04/08/18 History ALButerol Sulfate [Ventolin Neb] 2.5 mg NEB [id number] PRN neb 06/16/17 Rx Acetaminophen [Tylenol Regular 650 mg PO Q4H PRN tab 06/16/17 04/08/18 Rx Strength] HYDROcodone Bit/APAP 5/325 [[place]] 1 tab PO Q6HR PRN 07/19/17 04/08/18 History Multivitamin W/ Minerals 1 tab PO DAILY 07/19/17 04/08/18 History [Theragran M] Potassium Chloride [K-Dur] 20 meq PO BID 07/19/17 04/08/18 History predniSONE [Prednisone] 15 mg PO DAILY 10/20/17 04/08/18 History busPIRone HCl [Buspirone HCl] 10 mg PO HS 10/22/17 04/08/18 History Folic Acid 0.4 mg PO DAILY 10/24/17 04/08/18 History Mesalamine 3 tablet PO DAILY 10/25/17 04/08/18 History Diltiazem HCl [Cardizem CD] 180 mg PO DAILY #30 cap 11/09/17 04/08/18 Rx Metoprolol Tartrate [Lopressor] 25 mg PO BID #60 tab 11/09/17 04/08/18 Rx Ferrous Sulfate [Feosol] 325 mg PO BID 30 Days #60 tab 12/15/17 04/08/18 Rx Loperamide HCl [Imodium] 2 mg PO QID PRN #60 cap 12/15/17 04/08/18 Rx Dicyclomine [Bentyl] 10 mg PO QID PRN 04/08/18 04/08/18 History - History PMHx: Afib s/p multiple ablations and watchman procedure, HFpEF (last echo 2017 shows grade 3 diastolic HF), HTN, HLD, TIA, diverticulitis PSHx: Watchman procedure, abdominal surgery for diverticulitis, cholecystectomy , back surgery (unspecified) FHx: Stroke Social: denies Etoh/tobacco/drug use - Review of Systems General: denies: fever/chills, fatigue Eyes: denies: eye pain, vision changes ENT: denies: nasal congestion, rhinorrhea Respiratory: reports: shortness of breath (chronic and unchanged). denies: congestion Cardiovascular: denies: chest pain, palpitation, edema Gastrointestinal: denies: nausea, vomiting Genitourinary: denies: dysuria, polyuria Skin: denies: rashes, lesions Musculoskeletal: reports: pain (back pain chronic). denies: stiffness Neurological: denies: syncope, seizure Psychological: denies: anxiety, depression - Vital signs BP: [124/54] HR: [36] RR: [19] Pox: [98]% on [ra] Wt: [61kg] - Physical Exam Constitutional: awake, alert and oriented, well developed HEENT: EOMI, conjunctiva clear, grossly normal vision, grossly normal hearing, MMM Neck: trachea midline, no JVD Chest: no-tender to palpation Heart: normal S1/S2, pulses present, no edema, other (bradycardic HR in 30s) Lungs: CTAB, no respiratory distress Abdomen: soft, non-tender, bowel sounds present Musculoskeletal: normal structure, normal tone Neurological: no focal deficit, normal sensation Skin: no rash/lesions, good turgor Heme/Lymphatic: no unusual bruising or bleeding, no purpura, no petechia Psychiatric: normal mood and affect, good judgment and insight FMR H&P: Results - Labs Result Diagrams: 04/08/18 09:50 04/08/18 09:50 Lab results: WBC 12.1 thou/uL (4.8-10.8) H 04/08/18 09:50 Hgb 9.9 g/dL (12.0-16.0) L 04/08/18 09:50 Hct 30.6 % (36.0-47.0) L 04/08/18 09:50 MCV 85.0 fL (78.0-98.0) 04/08/18 09:50 Plt Count 347 thou/uL (130-400) 04/08/18 09:50 Neutrophils % 61.5 % (42.0-75.0) 04/08/18 09:50 Sodium 133 mmol/L (136-145) L 04/08/18 09:50 Potassium 5.1 mmol/L (3.5-5.1) 04/08/18 09:50 Chloride 101 mmol/L (98-107) 04/08/18 09:50 Carbon Dioxide 23 mmol/L (23-31) 04/08/18 09:50 BUN 19 mg/dL (9.8-20.1) 04/08/18 09:50 Creatinine 0.74 mg/dL (0.6-1.1) 04/08/18 09:50 Glucose 172 mg/dL (83-110) H 04/08/18 09:50 Calcium 9.0 mg/dL (7.8-10.44) 04/08/18 09:50 Total Bilirubin 0.3 mg/dL (0.2-1.2) 04/08/18 09:50 AST 17 U/L (5-34) 04/08/18 09:50 ALT 15 U/L (8-55) 04/08/18 09:50 Alkaline Phosphatase 69 U/L (40-150) 04/08/18 09:50 Creatine Kinase 24 U/L (29-168) L 04/08/18 09:50 CK-MB (CK-2) 1.5 ng/mL (0-6.6) 04/08/18 09:50 B-Natriuretic Peptide 500.9 pg/mL (0-100) H 04/08/18 09:50 Serum Total Protein 6.3 g/dL (6.0-8.3) 04/08/18 09:50 Albumin 3.5 g/dL (3.4-4.8) 04/08/18 09:50 Lipase 17 U/L (8-78) 04/08/18 09:50 FMR H&P: A/P - Problem List (1) Symptomatic bradycardia Current Visit: Yes Status: Acute Code(s): R00.1 - BRADYCARDIA, UNSPECIFIED (2) Afib Current Visit: Yes Status: Acute Code(s): I48.91 - UNSPECIFIED ATRIAL FIBRILLATION (3) Heart failure with preserved ejection fraction Current Visit: Yes Status: Acute Code(s): I50.30 - UNSPECIFIED DIASTOLIC ( CONGESTIVE) HEART FAILURE (4) Hyperlipidemia Current Visit: No Status: Chronic Code(s): E78.5 - HYPERLIPIDEMIA, UNSPECIFIED Qualifiers: Hyperlipidemia type: unspecified Qualified Code(s): E78.5 - Hyperlipidemia , unspecified (5) Hypertension Current Visit: No Status: Chronic Code(s): I10 - ESSENTIAL (PRIMARY) HYPERTENSION Qualifiers: Hypertension type: essential hypertension Qualified Code(s): I10 - Essential (primary) hypertension (6) Hypothyroidism Current Visit: No Status: Chronic Code(s): E03.9 - HYPOTHYROIDISM, UNSPECIFIED Qualifiers: Hypothyroidism type: acquired Qualified Code(s): E03.9 - Hypothyroidism, unspecified - Plan Symptomatic Bradycardia A- iatrogenic vs. medication missuse vs sick sinus syndrome. P- hold beta bobbi and calcium channel bobbi - Telemetry monitoring - if pt becomes unstable will have transcutaneous pacing - cardiology consulted in ER. f/u recs HFpEF- A- no clinical sings of fluid overload, BNP baseline. Last TTE 05/28/17 showed Grade 3 diastolic dysfunction with EF 60%. P- monitor and provide diuretic therapy if symptoms worsen Paroxysmal a-fib A- s/p watchman procedure so no need anticoag P- hold rate control medications as per above HLD -home meds HTN A- not hypertensive at this time P- will hold home medications until heart rate improves OA- -home meds Leukocytosis A-likely 2/2 stress response P- will trend hypothyroidism A- TSH WNL P- home medications, Diet- HH, NPO at midnight PPx- Fall precautions, ambulate w/assist, SCDs CODE- Chemical Code/Intubation only, No chest compressions FMR H&P: Upper Level - Pertinent history 77 yo WF PMH A-fib s/p watchman procedure, HTN, HLD, and HFpEF. Presents with 1 day history of generalized malaise, SOB, and "waves of pain through her back." States symptoms were intermittent yesterday but today her SOB and generalized weakness and light headedness have worsened. states she has been taking her medications as prescribed. Family present at bedside deny AMS. Patient denies localized numbness, tingling or weakness. Had medication change 2 weeks ago but decided this morning to take metoprolol in addition to her new meds. ER: Labs, EKG, CXR, - Pertinent findings Vitals: WNL except Pulse of 30-40. GEN: NAD, A&Ox4 appropriately interactive CV: Bradycardic rate regular rhythm. no murmur Pulm: CTA-B, no rales or wheezing noted. Extremities: No swelling or edema. Labs: BNP 500, Trop and CKMB WNL, WBC 12.1 CXR: No acute processes (reviewed by me) EKG: Rate 37, a-fib with slow ventricular response, no ST changes, QTc: 379 ms - Plan Date/Time: 04/08/18 1135 I, Joby Montgomery MD, have evaluated this patient and agree with findings/plan as outlined by diversity intern resident. Pertinent changes/additions are listed here. 1. Symptomatic Bradycardia- likely iatrogenic but differential includes sick sinus syndrome. - hold beta bobbi and calcium channel bobbi - Telemetry monitoring - plan for transcutaneous pacing if she becomes unstable - cardiology consulted in ER. will await further recommendations 2. HFpEF- no clinical sings of fluid overload, BNP appears to be at baseline - monitor and provide diuretic therapy if symptoms worsen - last TTE 05/28/17 showed Grade 3 diastolic dysfunction with EF 60%. 3. Paroxysmal a-fib - hold rate control medications - no anticoagulation since s/p watchman procedure 4. HLD- home med 5. HTN- will hold home medications until heart rate improves 6. OA- home pain meds 7. Leukocytosis- likely 2/2 stress response, trend 8. hypothyroidism- home medications, TSH WNL 9. Diet- HH, NPO at midnight 10. PPx- Fall, SCDs 11. CODE- Chemical Code/Intubation only, No chest compressions Discussed with Dr. Burns. Attending Addendum - Attending Addendum Date/Time: 04/08/18 1610 I personally evaluated the patient and discussed the management with Dr. Bennett /Ulises. I agree with the History, Examination, Assessment and Plan documented above with any addition or exceptions noted below. Patient with history of Afib here with malaise and lightheadedness for the last 2 days. Reports feeling bad yesterday, heart rate consistently above 100 all day despite medication use properly. Persisted through the night and continued this morning. She has been taking Inderal for rate control but took a Metoprolol this morning as she had previously been on it with good effect but continued to feel unwell. Of note, she DID NOT take both Inderal and Propranolol this morning, only the Metoprolol after clarification. Upon arrival to ER, she was found to be bradycardic with irregular rhythm to the 30s. Given Atropine x1 without improvement. She is currently asymptomatic and only complains of weakness with ambulation. Reports some shortness of breath yesterday during her episode. Exam non focal and positive for bradycardia. Labs overall nonrevealing, Trop negative. Telemetry shows irregular bradycardia 36- 41 during my observation. Patient will be admitted for symptomatic bradycardia 2 /2 likely SSS. Atropine as needed, continue tele monitoring. Caution with ambulation or activity. Cardiology consulted already. Holding beta blockers for now and monitor BP or for signs of hemodynamic instability. Will TC pace if she decompensates after another trial of Atropine if needed.
[2018-04-08] MEDS ORDERED: Atropine Sulfate 1 mg/10 ml Syringe ONE (12:15)
[2018-04-08 13:30] LABS: Troponin I 0.018 ng/mL (< 0.028)
[2018-04-08] MEDS ORDERED: Acetaminophen 325 MG TAB PO PRN (13:35)
[2018-04-08] MEDS ORDERED: Loperamide HCl 2 MG CAP PO PRN (13:38)
[2018-04-08 13:45] VITALS: BMI 28.5
[2018-04-08 16:03] LABS: Troponin I Less than 0.010 ng/mL (< 0.028)
[2018-04-08] MEDS: Ferrous Sulfate 325 MG TAB PO SCH (22:03)
[2018-04-08] MEDS: busPIRone HCl 10 MG TAB PO SCH (22:04)
[2018-04-08] MEDS: Potassium Chloride 20 MEQ TAB PO SCH (22:04)
[2018-04-08] MEDS ORDERED: Loratadine 10 MG TAB PO PRN (22:34)
[2018-04-08] MEDS ORDERED: PROVENTIL INHALER 6.7 G (200 INHALATIONS) INH PRN (22:35)
--- NOTE | 2018-04-09 04:02 | CON ---
DATE OF ADMISSION: 04/08/2018 DATE OF CONSULTATION: 04/08/2018 Please refer to my office notes from 04/04/2018 for the majority of the past medical history, social history, family history, review of systems, medications, allergies. INDICATION FOR THE CONSULTATION: Severe symptomatic bradycardia. HISTORY OF PRESENT ILLNESS: This very unfortunate 77-year-old female who was seen in my office on . She has been doing relatively well, but she continued to have some problems with her fluct uations of the blood pressure. She has been taking clonidine 3 times a day and nitroglycerin on top of this when she had significant hypertension. She has also been taking beta blockers. She has been on Inderal several years ago and has been done quite well, but one of her recent hospitalization, is has been switched over to metoprolol and I decided to change her back to Inderal and see whether o r not this was improved the blood pressure. She was started on the Inderal the day she left the [facility] which would have been on Monday or Monday and then on she had some symptoms I believe and then by Monday she took some Inderal Monday evening and decided it was not working, then on Monday morning, she decided to go back and take her metoprolol and then she presented with what she d escribes as being lightheadedness and near syncopal episodes and presented to the hospital when she c alled 911 actually and her heart rate was found to be in the 30s and 40s. Since being here and on te lemetry over the course of the day, her heart rate has improved. She is now up in the 70s. She does have what appears to be atrial tachycardia of some sort either could be possibly atrial flutter or a trial tachycardia, but earlier today her heart rate remained in the 30s and I suspect this is due to the effects of the Inderal or the metoprolol effects finally subsiding. She denied any significant c hest pain. She did have some shortness of breath, but mainly was concerned about the presyncopal epi sodes and the severe bradycardia. She has had a long history of atrial arrhythmias. She has undergo ne a pulmonary vein isolation in 05/2011 and was repeated in 01/2015. She also has a history of yao tid artery disease. She does not have any known coronary artery disease. She has had stress testing in 12/2017, which showed a normal ejection fraction, no evidence of coronary artery disease or ische melina. She has also had a Watchman device placed in 01/2016. At this time, her heart rate is improved , but she still remains with an atrial tachycardia. Does not appear to be atrial fibrillation, but a t times it certainly is irregular and she does have a history of paroxysmal atrial fibrillation. She also has a history of chronic COPD and has COPD exacerbations. She is mainly monitored and followed by Dr. Thomson. At this time, we will continue to monitor her very carefully, I will ask for electrop hysiology evaluation tomorrow to see whether or not to have any added suggestions on how to treat thi s lady's irregular heart rates. I did discuss with the patient that she may eventually undergo pacem john insertion as this certainly starts to appear like a tachy-sally syndrome. She has had the ablat ions in the past, but she may need to have pacemaker insertion in order to prevent further episodes o f bradycardia. Otherwise, her physical examination has not changed since the office note of 04/04/20 18, except for the further episodes of the bradycardia.
[2018-04-09] MEDS: hydrALAZINE 20 MG/ML VIAL SLOW IVP PRN (04:39)
--- NOTE | 2018-04-09 05:48 | PDOC.FM ---
- Subjective Subjective: Ms. Lozoya reports not sleeping well last night. She is feeling better compared to yesterday. Denies chest pain or heart palpitations. Is having some back pain. Has surgery planned for beginning of April. - Objective MAR Reviewed: Yes Vital Signs & Weight: Vital Signs (12 hours) Temp Pulse Resp BP BP Pulse Ox 04/09/18 05:10 156/54 H 04/09/18 04:39 90 184/76 H 04/09/18 04:20 184/76 H 04/09/18 04:00 97.8 F 105 H 22 H 96 04/08/18 23:57 94 L 04/08/18 23:56 93 L 04/08/18 23:00 98 F 103 H 20 150/70 H 98 04/08/18 19:40 98.7 F 75 16 154/54 H 97 Weight Weight 61.326 kg I&O: 04/07/18 04/08/18 04/09/18 06:59 06:59 06:59 Intake Total 840 Output Total 2100 Balance -1260 Result Diagrams: 04/09/18 05:33 04/09/18 05:33 Phys Exam - Physical Examination Constitutional: NAD HEENT: moist MMs Respiratory: clear to auscultation bilateral Cardiovascular: RRR, no significant murmur Gastrointestinal: soft, non-tender, no distention, positive bowel sounds Musculoskeletal: no edema Jomar's nodes b/l Neurological: non-focal Psychiatric: normal affect Skin: normal turgor, cap refill <2 seconds Dx/Plan (1) Symptomatic bradycardia Code(s): R00.1 - BRADYCARDIA, UNSPECIFIED Status: Acute (2) Tachy-sally syndrome Code(s): I49.5 - SICK SINUS SYNDROME Status: Acute (3) Hypertension Code(s): I10 - ESSENTIAL (PRIMARY) HYPERTENSION Status: Acute Qualifiers: Hypertension type: essential hypertension Qualified Code(s): I10 - Essential (primary) hypertension (4) Heart failure with preserved ejection fraction Code(s): I50.30 - UNSPECIFIED DIASTOLIC (CONGESTIVE) HEART FAILURE Status: Acute (5) Chronic back pain Code(s): M54.9 - DORSALGIA, UNSPECIFIED; G89.29 - OTHER CHRONIC PAIN Status: Chronic (6) Chronic anemia Code(s): D64.9 - ANEMIA, UNSPECIFIED Status: Chronic (7) Chronic atrial fibrillation Code(s): I48.2 - CHRONIC ATRIAL FIBRILLATION Status: Chronic (8) Hyperlipidemia Code(s): E78.5 - HYPERLIPIDEMIA, UNSPECIFIED Status: Chronic Qualifiers: Hyperlipidemia type: unspecified Qualified Code(s): E78.5 - Hyperlipidemia , unspecified (9) Hypothyroidism Code(s): E03.9 - HYPOTHYROIDISM, UNSPECIFIED Status: Chronic Qualifiers: Hypothyroidism type: acquired Qualified Code(s): E03.9 - Hypothyroidism, unspecified (10) COPD (chronic obstructive pulmonary disease) Status: Chronic - Plan Plan: Symptomatic Bradycardia, rate now improved - could be 2/2 SSS, tachy-sally syndrome - held home diltiazem, propranolol, clonidine on admission - Telemetry monitoring: overnight rate 90s-100s. Appears to be atrial tachy with atrial rate around 180-200s. - pt has been stable overnight, rate now 90s. - cardiology consulted in ER. Appreciate recommendations- plan for EP consult today HTN - was hypertensive overnight and given prn hydralazine. BP still elevated. - home meds were held - pt asymptomatic HFpEF - no clinical sings of fluid overload, BNP 500 @ baseline. Last TTE 05/28/17 showed Grade 3 diastolic dysfunction with EF 60%. - monitor and provide diuretic therapy if symptoms worsen Paroxysmal a-fib - s/p watchman procedure 2015 - hold rate control medications as per above HLD -home rosuvastatin OA -home meds Chronic Back Pain - plan for surgery in April for herniated disk - pain managed by Dr. Nieto. Recently got epidural and takes [place] as needed. COPD - followed by Dr. Thomson outpatient - cont home albuterol inhaler prn Leukocytosis, improved -likely 2/2 stress response Chronic Normocytic Anemia - stable, Hgb 10.5 - cont home iron supp Hypothyroidism - TSH WNL - continue home armour thyroid Diet- has been NPO since midnight PPx- Fall precautions, ambulate w/assist, SCDs CODE- Chemical Code/Intubation only, No chest compressions
[2018-04-09 05:50] LABS: #Eosinphils 0.2 thou/uL (0.0-0.7); #Monocytes 0.8 thou/uL (0.11-0.59); #Neutrophils 5.2 thou/uL (1.40-6.50); %Basophils 0.5 % (0.0-1.0); %Eosinophils 1.8 % (0.0-10.0); %Lymphocytes 32.4 % (21.0-51.0); %Monocytes 8.4 % (0.0-10.0); Hemoglobin 10.5 g/dL (12.0-16.0); Mean Corpuscular HGB CONC 31.9 g/dL (32.0-36.0); Mean Corpuscular Volume 84.5 fL (78.0-98.0); Platelet Count 321 thou/uL (130-400); RBC Distribution Width 15.4 % (11.5-14.5); Red Blood Cell (RBC) Count 3.88 mill/uL (4.20-5.40); White Blood Cell (WBC) Count 9.1 thou/uL (4.8-10.8)
[2018-04-09] MEDS ORDERED: HYDROcodone/Acetaminophen 5/325 mg Tablet PO ONE (06:00)
[2018-04-09 06:12] LABS: Anion Gap 13 mmol/L (10-20); BUN (Urea Nitrogen) 19 mg/dL (9.8-20.1); Calc. Creatinine Clearance 63 mL/min (70-130); Calcium 9.2 mg/dL (7.8-10.44); Carbon Dioxide 23 mmol/L (23-31); Chloride 104 mmol/L (98-107); Estimated GFR-MDRD 79; Glucose 95 mg/dL (83-110); Potassium 3.8 mmol/L (3.5-5.1); Sodium 136 mmol/L (136-145)
[2018-04-09] MEDS ORDERED: Albuterol Sulfate 2.5 mg/3 ml Neb NEB PRN (08:39)
[2018-04-09] MEDS: predniSONE 5 MG TAB PO SCH (09:14)
[2018-04-09] MEDS: Ferrous Sulfate 325 MG TAB PO SCH ×2 (09:14→21:35)
[2018-04-09] MEDS: Rosuvastatin 10 MG TAB PO SCH (09:14)
[2018-04-09] MEDS: Potassium Chloride 20 MEQ TAB PO SCH ×2 (09:15→21:35)
[2018-04-09] MEDS: Multivitamin W/ Minerals 1 TAB PO SCH (09:15)
[2018-04-09] MEDS: Ondansetron ODT 4 MG TAB PO PRN (09:15)
[2018-04-09] MEDS: Thyroid 60 MG TAB PO SCH (09:16)
--- NOTE | 2018-04-09 11:52 | PRG ---
DATE OF SERVICE: 04/09/2018 Ms. Carrera is a very pleasant 77-year-old female who was admitted with symptomatic bradycardia. She h as already been seen in consultation by of the Cardiology Service and by the Electrophysiolo gy Service. I believe they are going to recommend a pacemaker but definitive recommendation still aw ait. In the event, Ms. Carrera's pulse rate is back to normal and she is asymptomatic. LABORATORY DATA: Her CBC is 9100, hemoglobin was 10.5 with hematocrit of 32.8. Sodium was 133, pota ssium 5.1, chloride 101, bicarbonate 23, BUN 19, creatinine 0.74. Her glucose was 172. Her BNP is e levated at 500.9. We will proceed after final recommendations with Cardiology and Electrophysiology.
--- NOTE | 2018-04-09 12:20 | PDOC.CTH ---
<Leanna Monge - Last Filed: 04/09/18 12:17> Cardiology Progress Note - Subjective The pt seen and examined. No overnight events. No cardiac complaints. - Objective Vital Signs Temp Pulse Resp BP BP BP Pulse Ox 04/09/18 08:00 98.4 F 103 H 16 178/72 H 96 04/09/18 05:10 156/54 H 04/09/18 04:39 90 184/76 H 04/09/18 04:20 184/76 H 04/09/18 04:00 97.8 F 105 H 22 H 96 Weight 135 lb 3.2 oz 04/08/18 04/09/18 04/10/18 06:59 06:59 06:59 Intake Total 840 Output Total 2600 Balance -1760 - Physical Examination General/Neuro: alert & oriented x3 Neck: no JVD present Lungs: other: (diminished at bases) Heart: other: (irregular) Abdomen: soft Extremities: other: (No edema) - Telemetry Telemetry Rhythm: Afib 100-120s - Labs Result Diagrams: 04/09/18 05:33 04/09/18 05:33 Troponin/CKMB CK-MB (CK-2) 1.5 ng/mL (0-6.6) 04/08/18 09:50 Troponin I Less than 0.010 ng/mL (< 0.028) 04/08/18 15:12 - Assessment/Plan 1. Tachy-Sally syndrome - Plan for PM placement this afternoon by . 2. 2:1 Aflutter - EP consult 3. HTN - stable 4. COPD - stable with RA 6. Chronic diastolic HF - Echo in 05/2017 showed grade III diastolic dysfunction. Stable 7. Hypothyroidism MAR reviewed * The procedure and the risk of PM placement were explained to the pt, included but not limited to: hemorrhage, infection to the PM site, perforation, pneumothorax, hemothorax, PM wire dislodges. The pt voiced understanding and agreed to proceed the procedure. Review of Systems - Review of Systems Constitutional: reports: no symptoms reported EENTM: reports: no symptoms reported Respiratory: reports: no symptoms reported Cardiac (ROS): reports: no symptoms reported ABD/GI: reports: no symptoms reported : reports: no symptoms reported Musculoskeletal: reports: no symptoms reported <Susan Mays - Last Filed: 04/09/18 17:31> Cardiology Progress Note - Objective Vital Signs Temp Pulse Resp BP BP BP Pulse Ox 04/09/18 16:16 98.5 F 108 H 16 186/74 H 97 04/09/18 12:00 98.4 F 112 H 16 186/98 H 98 04/09/18 08:00 98.4 F 103 H 16 178/72 H 96 Weight 135 lb 3.2 oz 04/08/18 04/09/18 04/10/18 06:59 06:59 06:59 Intake Total 840 Output Total 2600 Balance -1760 - Labs Result Diagrams: 04/09/18 05:33 04/09/18 05:33 Troponin/CKMB CK-MB (CK-2) 1.5 ng/mL (0-6.6) 04/08/18 09:50 Troponin I Less than 0.010 ng/mL (< 0.028) 04/08/18 15:12 - Assessment/Plan pt. seen and eval. by me. discussed with EP. Agree to pacemaker insertion .pt. with tachy-sally syndrome.
[2018-04-09] MEDS ORDERED: Lidocaine 1% (PF) 30 ML VIAL ONE ×2 (14:07→15:05)
[2018-04-09] MEDS ORDERED: Gentamicin 80 MG/2 ML VIAL ONE (14:07)
[2018-04-09] MEDS ORDERED: CEFAZOLIN 1 GM VIAL ONE (14:07)
[2018-04-09] MEDS ORDERED: CEFAZOLIN 2 GM/50 ML BAG ONE (14:07)
[2018-04-09] MEDS: LIALDA 1.2 GM PO SCH (14:51)
[2018-04-09] MEDS ORDERED: Midazolam HCl 2 mg/2 ml Vial ONE (14:59)
[2018-04-09] MEDS ORDERED: hydrALAZINE 20 MG/ML VIAL ONE (15:54)
[2018-04-09] MEDS ORDERED: Acetaminophen/Codeine 30-300mg Tablet PO PRN (16:16)
--- NOTE | 2018-04-09 16:51 | CCL ---
CARDIOLOGY PROCEDURE NOTE: Date: 04/09/18 PROCEDURE: Pacemaker insertion. INDICATION FOR PROCEDURE: This is a 77-year-old female with tachybrady syndrome, who was advised to undergo a dual-chamber pace maker insertion with atrial therapies. DESCRIPTION OF PROCEDURE: The patient was taken to cardiac tender labor, where she was prepped and draped in sterile fashion. The d evice was implanted without difficulties or complications. A tie-in lead was placed in the right atri um and a screw-in lead was placed in the right ventricle. Pacemaker set with the upper rate at 120 an d the lower rate was set at 60. There were no difficulties or complications encountered. The full dic tated note can be found in the chart.
--- NOTE | 2018-04-09 17:38 | RAD ---
CHEST ONE VIEW: 04/09/18 HISTORY: Chest pain. Cardiac device placement. COMPARISON: Radiograph prior day. FINDINGS: New dual lead pacer is in place. No pneumothorax. Heart size is mildly enlarged. Pulmonary arteries are dilated. IMPRESSION: Uncomplicated placement of dual lead pacer. POS: [facility]
[2018-04-09] MEDS ORDERED: hydrALAZINE 20 MG/ML VIAL SLOW IVP SCH (18:15)
[2018-04-09] MEDS: HYDROcodone/Acetaminophen 5/325 mg Tablet PO PRN (19:19)
[2018-04-09] MEDS: Dicyclomine 10 MG CAP PO PRN (19:20)
[2018-04-09] MEDS ORDERED: Metoprolol Tartrate 25 MG TAB PO SCH (21:00)
[2018-04-09] MEDS: busPIRone HCl 10 MG TAB PO SCH (21:34)
[2018-04-10] MEDS: Ondansetron ODT 4 MG TAB PO PRN (03:07)
[2018-04-10] MEDS: hydrALAZINE 20 MG/ML VIAL SLOW IVP PRN ×3 (04:25→18:18)
[2018-04-10] MEDS ORDERED: Promethazine HCl 25 MG/ML VIAL IM/IV PRN (05:20)
[2018-04-10] MEDS: Promethazine HCl 25 MG in Sodium Chloride 0.9% 50 ML IVPB PRN ×2 (05:54→14:10)
[2018-04-10] MEDS: Metoprolol Tartrate 5 MG/5 ML VIAL IVP PRN (05:54)
--- NOTE | 2018-04-10 06:41 | PDOC.FM ---
- Subjective Subjective: Patient reports she had a rough night of N/V, not feeling well. BPs were elevated. She is lying in bed now comfortable. Successful pacemaker placement yesterday. - Objective MAR Reviewed: Yes Vital Signs & Weight: Vital Signs (12 hours) Temp Pulse Resp BP BP Pulse Ox 04/10/18 04:00 99.1 F 113 H 16 183/78 H 96 04/09/18 19:00 98.6 F 108 H 18 174/79 H 98 Weight Weight 59.829 kg I&O: 04/08/18 04/09/18 04/10/18 06:59 06:59 06:59 Intake Total 840 1060 Output Total 2600 1250 Balance -1760 -190 Result Diagrams: 04/09/18 05:33 04/09/18 05:33 Phys Exam - Physical Examination Constitutional: NAD Respiratory: clear to auscultation bilateral Cardiovascular: no significant murmur (tachycardia) pacemaker in place Gastrointestinal: soft, non-tender, no distention, positive bowel sounds Musculoskeletal: no edema Neurological: non-focal Psychiatric: normal affect Skin: normal turgor, cap refill <2 seconds Dx/Plan (1) Symptomatic bradycardia Code(s): R00.1 - BRADYCARDIA, UNSPECIFIED Status: Acute (2) Tachy-sally syndrome Code(s): I49.5 - SICK SINUS SYNDROME Status: Acute (3) Hypertension Code(s): I10 - ESSENTIAL (PRIMARY) HYPERTENSION Status: Acute Qualifiers: Hypertension type: essential hypertension Qualified Code(s): I10 - Essential (primary) hypertension (4) Heart failure with preserved ejection fraction Code(s): I50.30 - UNSPECIFIED DIASTOLIC (CONGESTIVE) HEART FAILURE Status: Acute (5) Chronic back pain Code(s): M54.9 - DORSALGIA, UNSPECIFIED; G89.29 - OTHER CHRONIC PAIN Status: Chronic (6) Chronic anemia Code(s): D64.9 - ANEMIA, UNSPECIFIED Status: Chronic (7) Chronic atrial fibrillation Code(s): I48.2 - CHRONIC ATRIAL FIBRILLATION Status: Chronic (8) Hyperlipidemia Code(s): E78.5 - HYPERLIPIDEMIA, UNSPECIFIED Status: Chronic Qualifiers: Hyperlipidemia type: unspecified Qualified Code(s): E78.5 - Hyperlipidemia , unspecified (9) Hypothyroidism Code(s): E03.9 - HYPOTHYROIDISM, UNSPECIFIED Status: Chronic Qualifiers: Hypothyroidism type: acquired Qualified Code(s): E03.9 - Hypothyroidism, unspecified (10) COPD (chronic obstructive pulmonary disease) Status: Chronic - Plan Plan: Tachy-sally syndrome s/p pacemaker placement 04/09 - pt initially presented with symptomatic bradycardia - held home diltiazem, clonidine. Home metoprolol was restarted - Telemetry monitoring: in atrial flutter/atrial tachycardia overnight, rate in 100s - Cardiology and EP consulted, appreciate recommendations HTN - was hypertensive with N/V overnight and given prn hydralazine, BB, and anti- nausea meds. SBPs still 180s. Increased home metoprolol 25-->50 mg BID - home clonidine and diltiazem are still held. Appreciate recs from . HFpEF - no clinical sings of fluid overload, BNP 500 @ baseline. Last TTE 05/28/17 showed Grade 3 diastolic dysfunction with EF 60%. Paroxysmal a-fib - s/p watchman procedure 2015 - hold rate control medications as per above HLD -home rosuvastatin OA -home meds Chronic Back Pain - plan for surgery in April for herniated disk - pain managed by Dr. Nieto. Recently got epidural and takes [place] as needed. COPD - followed by Dr. Thomson outpatient - cont home albuterol inhaler prn Leukocytosis, improved -likely 2/2 stress response Chronic Normocytic Anemia - stable, Hgb 10.5 - cont home iron supp Hypothyroidism - TSH WNL - continue home armour thyroid Diet- HH PPx- Fall precautions, ambulate w/assist, SCDs CODE- Chemical Code/Intubation only, No chest compressions
--- NOTE | 2018-04-10 08:47 | CON ---
DATE OF CONSULTATION: 04/09/2018 I am seeing Ms. 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 Her problems are: 1. Recurrent atrial arrhythmias. A. Prior CTI ablation in the past. 2. Tachybrady syndrome with requiring beta bobbi for rate control. 3. Status post left atrial appendage occlusion device with a Watchman device with ARIELLE 03/14/2016 shows Watchman device without a leak now off anticoagulation , patent foramen ovale and left to right side shunt was still noted. 4. Prior history of transient ischemic attack. 5. History of gastrointestinal bleed. 6. History of spinal disk trauma and might requiring surgery in the future. 7. History of hypertension. 8. History of chronic obstructive pulmonary disease. 9. History of Sjogren's syndrome. 10. History of hypothyroidism and hyperlipidemia. ALLERGIES: AMLODIPINE. MEDICATIONS AT HOME: Included clonidine 0.3 mg 3 times a day, Jones Thyroid, rosuvastatin, Tylenol regular strength, albuterol, potassium chloride, multivitamin, hydrocodone, prednisone, buspirone, hydrochloride, folic acid, mesalamine, diltiazem CD 180 mg a day, metoprolol tartrate 25 b.i.d., ferrous sulfate, loperamide and dicyclomine. SUBJECTIVE: Ms. Carrera is here due to episode of dizziness, near loss of consciousness. She actually was switched from propranolol to metoprolol by due to rapid palpitations. She noted her heart rate very low and blood pressure also very reduced. She came to the ER and found to have continued atrial flutter, which appears to be atypical and non-isthmus dependent and very slow ventricular rates. Since holding all her medication and heart rates improved. Her dizziness is better, but she is still nauseous. No stroke-like symptoms, no neurological deficits, no fever, chills or cough. REVIEW OF SYSTEMS: Rest of 12-point system otherwise unremarkable. PAST MEDICAL HISTORY: As above. SOCIAL HISTORY: The patient denies EtOH, tobacco, or drug use. FAMILY HISTORY: Not contributory. OBJECTIVE DATA: VITAL SIGNS: Blood pressure is 186/74, heart rate 108, respiration 16, temperature 98.5 degrees Fahrenheit. GENERAL: She is alert and oriented elderly woman in no apparent distress. NECK: Supple. Jugular vein does not appear distended. CHEST: Coarse without crackles. CARDIOVASCULAR: Heart sounds are irregularly irregular. S1, S2 is variable. No murmur or gallop. ABDOMEN: Benign. Bowel sounds positive. EXTREMITIES: Lower extremity without edema, clubbing or cyanosis. SKIN: Without rash, but signs of ecchymosis on the arm and hands were noted. DATA BASE: EKG again reveals atypical atrial flutter with controlled ventricular rates. LABORATORY DATA: White count is 9.1, hemoglobin is 10.5, platelet count is 321. Sodium 136, potassium 3.8, BUN is 19, creatinine is 0.72. ASSESSMENT AND PLAN: Ms. Carrera is a very pleasant 77-year-old woman with history of atrial arrhythmias with recent recurrence. She has also had a Watchman device in place. She has essentially tachybrady syndrome and difficult to find an appropriate dose for her rate control. We discussed the pros and cons about pacing, in addition I think it is reasonable to proceed with that as had already planned to. After the pacemaker is in place, we could entertain adding antiarrhythmic agents, possibly sotalol would be a reasonable choice. Multaq versus flecainide also not unreasonable. Hence, she has a Watchman device in place which has adequate sealed the left atrial appendage, anticoagulation not necessary. After adequate loading antiarrhythmics, we could consider outpatient cardioversion. Can consider Multaq vs sotalol. MTDD
--- NOTE | 2018-04-10 09:50 | PDOC.CTH ---
<Leanna Monge - Last Filed: 04/10/18 15:53> Cardiology Progress Note - Subjective The pt seen and examined. No overnight events. No cardiac complaints. N&V last night. - Objective Vital Signs Temp Pulse Resp BP BP Pulse Ox 04/10/18 08:01 98.9 F 116 H 16 182/75 H 97 04/10/18 05:58 107 H 147/67 H 04/10/18 05:53 121 H 186/78 H 04/10/18 04:00 99.1 F 113 H 16 183/78 H 96 Weight 131 lb 14.4 oz 04/09/18 04/10/18 04/11/18 06:59 06:59 06:59 Intake Total 840 1060 Output Total 2600 1250 Balance -1760 -190 - Physical Examination General/Neuro: alert & oriented x3 Neck: no JVD present Lungs: other: (diminished at bases) Heart: other: (irregular) Abdomen: soft Extremities: other: (No edema) - Telemetry Telemetry Rhythm: [id number] - Labs Result Diagrams: 04/09/18 05:33 04/09/18 05:33 Troponin/CKMB CK-MB (CK-2) 1.5 ng/mL (0-6.6) 04/08/18 09:50 Troponin I Less than 0.010 ng/mL (< 0.028) 04/08/18 15:12 - Assessment/Plan 1. s/p PM placement on 04/09/18 2/2 Tachy-Timur syndrome - The PM site is GR[place] CADDY, dry, and mild hematoma. 2. 2:1 Aflutter - Will start Sotalol 80mg BID and Digoxin. S/p Watchman device placement; Cont. to monitor; Possible DCCV within a few days if she does not convert back to SR with Sotalol. 3. HTN - Start Sotalol for HTN and aifb 4. COPD - stable with RA 6. Chronic diastolic HF - Echo in 05/2017 showed grade III diastolic dysfunction. Stable 7. Hypothyroidism MAR reviewed * Possible DCCV within a few days if she does not convert back to SR with Sotalol. <Addendum> @ 1553, Clonidine 0.3mg TID was ordered for cont elevating BP, 200/80s. Review of Systems - Review of Systems Constitutional: reports: weakness EENTM: reports: no symptoms reported Respiratory: reports: no symptoms reported Cardiac (ROS): reports: no symptoms reported ABD/GI: reports: see HPI : reports: no symptoms reported Musculoskeletal: reports: no symptoms reported <Susan Mays - Last Filed: 04/10/18 16:22> Cardiology Progress Note - Objective Vital Signs Temp Pulse Resp BP BP BP Pulse Ox 04/10/18 16:13 204/82 H 04/10/18 14:52 106 H 200/80 H 04/10/18 14:10 114 H 201/95 H 04/10/18 14:05 114 H 201/95 H 04/10/18 12:24 116 H 04/10/18 12:23 116 H 182/88 H 04/10/18 11:29 98.8 F 107 H 18 169/88 H 96 04/10/18 08:01 98.9 F 116 H 16 182/75 H 97 04/10/18 05:58 107 H 147/67 H 04/10/18 05:53 121 H 186/78 H Weight 131 lb 14.4 oz 04/09/18 04/10/18 04/11/18 06:59 06:59 06:59 Intake Total 840 1060 Output Total 2600 1250 Balance -1760 -190 - Labs Result Diagrams: 04/09/18 05:33 04/09/18 05:33 Troponin/CKMB CK-MB (CK-2) 1.5 ng/mL (0-6.6) 04/08/18 09:50 Troponin I Less than 0.010 ng/mL (< 0.028) 04/08/18 15:12 - Assessment/Plan Pt.seen and eval.byme.s/p pacemaker implant yesterday for SSS.HTN today.Resume clonidine.I agree with the A/Pby the PAROLE HEARING OFFICER.Wilneed better rate control. Chest clear.
[2018-04-10] MEDS: predniSONE 5 MG TAB PO SCH (09:55)
[2018-04-10] MEDS: Rosuvastatin 10 MG TAB PO SCH (09:55)
[2018-04-10] MEDS: Potassium Chloride 20 MEQ TAB PO SCH ×3 (09:55→21:32)
[2018-04-10] MEDS: Thyroid 60 MG TAB PO SCH (09:56)
[2018-04-10] MEDS: Ferrous Sulfate 325 MG TAB PO SCH ×2 (09:56→20:19)
[2018-04-10] MEDS: Multivitamin W/ Minerals 1 TAB PO SCH (09:56)
[2018-04-10] MEDS: Metoprolol Tartrate 25 MG TAB PO SCH ×2 (09:57→20:18)
[2018-04-10] MEDS: PARoxetine 20 MG TAB PO SCH (10:00)
[2018-04-10] MEDS: LIALDA 1.2 GM PO SCH (10:06)
[2018-04-10] MEDS ORDERED: Digoxin 0.5 MG/2 ML AMP SLOW IVP SCH (10:30)
[2018-04-10] MEDS ORDERED: Sotalol HCl 80 MG TAB PO SCH (10:30)
--- NOTE | 2018-04-10 11:53 | ADD-PRG ---
ADDENDUM This is an addendum to the note of Dr. Didi Jorge. Ms. Carrera had her pacemaker placed yesterday and is resting quietly this morning. She still feels ra ther sluggish, but otherwise offers no new complaints. Her vital signs are stable. We will continue to follow with Cardiology.
--- NOTE | 2018-04-10 13:13 | EKG ---
Test Reason : Blood Pressure : / mmHG Vent. Rate : 112 BPM Atrial Rate : 112 BPM P-R Int : 152 ms QRS Dur : 080 ms QT Int : 342 ms P-R-T Axes : 110 058 038 degrees QTc Int : 466 ms Sinus tachycardia Abnormal ECG When compared with ECG of 08-APR-2018 09:38, (Unconfirmed) Sinus rhythm has replaced Atrial fibrillation Vent. rate has increased BY 75 BPM T wave inversion now evident in Inferior leads T wave inversion now evident in Lateral leads Confirmed by DORY TATE, DR. Buenrostro ([id number]) on 04/10/2018 1:13:26 PM Referred By: MILDRED Confirmed By:DR. Porter CONNORS MD
[2018-04-10] MEDS: HYDROcodone/Acetaminophen 5/325 mg Tablet PO PRN ×2 (13:58→20:17)
[2018-04-10] MEDS ORDERED: cloNIDine 0.3 MG TAB PO SCH ×2 (16:15→21:00)
[2018-04-10] MEDS ORDERED: Labetalol HCl 100 MG/20 ML VIAL SLOW IVP SCH (16:15)
[2018-04-10] MEDS: Digoxin 0.5 MG/2 ML AMP SLOW IVP SCH ×2 (16:46→21:27)
--- NOTE | 2018-04-10 18:52 | PRG ---
DATE OF SERVICE: 04/10/2018 TYPE OF REPORT: Electrophysiology followup note. SUBJECTIVE: Ms. Carrera seems to be doing well, recovering after her pacemaker implantation yesterday. She had some palpitations though overnight. OBJECTIVE: VITAL SIGNS: Blood pressure is 182/88, heart rate 116, respirations 16, and temperature 98.9 degrees Fahrenheit. GENERAL: This is an alert and oriented woman, in no apparent distress. NECK: Supple. Jugular vein is not distended. CHEST: Coarse no crackles. CARDIAC: Heart sounds are irregular, tachycardiac. S1 and S2 are variable. No murmur or gallop. Left epicardial pacemaker site with minimal hematoma. ABDOMEN: Benign. Bowel sounds positive. EXTREMITIES: Lower extremities; no edema, clubbing, or cyanosis. DATABASE: The EKG is reviewed, revealing continued atrial flutter/atrial tachycardia with 2:1 AV conduction at times. The chest x-ray post pacemaker reveals no pneumothorax and adequate lead placement is noted. ASSESSMENT AND PLAN: Ms. Carrera is a 77-year-old woman with history of atrial arrhythmias, now presenting with atrial flutter/atrial tachycardia. She also has a left atrial appendage occlusion device in place with ARIELLE demonstrating no leak in the past, hence she is not on anticoagulation. Thus, she presented with significant palpitation to ' office and she was placed on beta-blockers. She developed marked bradycardia by switching from propranolol to metoprolol. Now, we are holding her beta-blockers but she is developing symptomatic tachycardia. Essentially, she has tachycardia-bradycardia syndrome, it was reasonable to proceed with pacemaker. Pacemaker was performed by yesterday. At this point, we will attempt suppression of arrhythmias and sotalol will be initiated. Monitor sotalol loading with serial EKGs in the next couple of days. Consider cardioversion in the next couple of days after adequate levels of sotalol achieved in her body. Hence, she has Watchman, anticoagulation or ARIELLE likely will not be necessary. History of Sjogren's syndrome, stable. We will follow with you. Job ID: [id number] MTDD
[2018-04-10] MEDS ORDERED: Lisinopril 10 MG TAB PO SCH (19:30)
[2018-04-10] MEDS: Sotalol HCl 80 MG TAB PO SCH (20:17)
[2018-04-10] MEDS: busPIRone HCl 10 MG TAB PO SCH (20:19)
[2018-04-11] MEDS: hydrALAZINE 20 MG/ML VIAL SLOW IVP PRN (00:34)
[2018-04-11] MEDS: Metoprolol Tartrate 5 MG/5 ML VIAL IVP PRN (04:25)
--- NOTE | 2018-04-11 05:33 | PDOC.FM ---
- Subjective Subjective: Ms. Carrera says she had a bad night with nausea, vomiting, not feeling well. Says she has been dealing with stomach issues for months. Denies headache, changes in vision, CP, SOB. She notes she feels a bit better in regards to her heart. - Objective MAR Reviewed: Yes Vital Signs & Weight: Vital Signs (12 hours) Temp Pulse Resp BP BP BP Pulse Ox 04/11/18 03:52 98.7 F 100 17 195/86 H 95 04/11/18 00:34 114 H 197/84 H 04/11/18 00:00 197/84 H 04/10/18 21:27 114 H 04/10/18 20:17 114 H 222/84 H 04/10/18 19:31 98.7 F 114 H 18 222/84 H 96 04/10/18 18:50 111 H 216/70 H 04/10/18 18:18 103 H 220/92 H Weight Weight 59.829 kg I&O: 04/09/18 04/10/18 04/11/18 06:59 06:59 06:59 Intake Total 840 1060 Output Total 2600 1250 Balance -1760 -190 Result Diagrams: 04/11/18 06:21 04/11/18 06:21 Phys Exam - Physical Examination Constitutional: NAD Respiratory: no wheezing, clear to auscultation bilateral Cardiovascular: RRR, no significant murmur Gastrointestinal: soft, non-tender, no distention, positive bowel sounds Musculoskeletal: no edema Neurological: non-focal Psychiatric: normal affect Skin: normal turgor, cap refill <2 seconds Dx/Plan (1) Symptomatic bradycardia Code(s): R00.1 - BRADYCARDIA, UNSPECIFIED Status: Acute (2) Tachy-sally syndrome Code(s): I49.5 - SICK SINUS SYNDROME Status: Acute (3) Hypertension Code(s): I10 - ESSENTIAL (PRIMARY) HYPERTENSION Status: Acute Qualifiers: Hypertension type: essential hypertension Qualified Code(s): I10 - Essential (primary) hypertension (4) Heart failure with preserved ejection fraction Code(s): I50.30 - UNSPECIFIED DIASTOLIC (CONGESTIVE) HEART FAILURE Status: Acute (5) Chronic back pain Code(s): M54.9 - DORSALGIA, UNSPECIFIED; G89.29 - OTHER CHRONIC PAIN Status: Chronic (6) Chronic anemia Code(s): D64.9 - ANEMIA, UNSPECIFIED Status: Chronic (7) Chronic atrial fibrillation Code(s): I48.2 - CHRONIC ATRIAL FIBRILLATION Status: Chronic (8) Hyperlipidemia Code(s): E78.5 - HYPERLIPIDEMIA, UNSPECIFIED Status: Chronic Qualifiers: Hyperlipidemia type: unspecified Qualified Code(s): E78.5 - Hyperlipidemia , unspecified (9) Hypothyroidism Code(s): E03.9 - HYPOTHYROIDISM, UNSPECIFIED Status: Chronic Qualifiers: Hypothyroidism type: acquired Qualified Code(s): E03.9 - Hypothyroidism, unspecified (10) COPD (chronic obstructive pulmonary disease) Status: Chronic - Plan Plan: Tachy-sally syndrome s/p pacemaker placement 04/09 - pt initially presented with symptomatic bradycardia - Telemetry monitoring: converted to SR @ 18:45 last night and has remained in SR, rate 80-100s - Cardiology and EP consulted, appreciate recommendations. - started sotalol yesterday with digoxin scheduled to start this am. HTN - was hypertensive with N/V overnight and given prn hydralazine and anti-nausea meds. SBPs still 180s-200s. - Currently on metoprolol, lisinopril, with clonodine to start this am. Dilt IV ordered for this am. Appreciate recommendations from . HFpEF - no clinical sings of fluid overload, BNP 500 @ baseline. Last TTE 05/28/17 showed Grade 3 diastolic dysfunction with EF 60%. Paroxysmal a-fib - s/p watchman procedure 2015, no anticoagulation needed HLD -home rosuvastatin OA -home meds Chronic Back Pain - plan for surgery in April for herniated disk - pain managed by Dr. Nieto. Recently got epidural and takes [place] as needed. COPD - followed by Dr. Thomson outpatient - cont home albuterol inhaler prn Leukocytosis, improved -likely 2/2 stress response Chronic Normocytic Anemia - stable, Hgb 10.5 - cont home iron supp Hypothyroidism - TSH WNL - continue home armour thyroid Diet- HH PPx- Fall precautions, ambulate w/assist, SCDs CODE- Chemical Code/Intubation only, No chest compressions
[2018-04-11 06:36] LABS: #Eosinphils 0.1 thou/uL (0.0-0.7); #Lymphocytes 2.8 thou/uL (1.20-3.40); #Monocytes 1.3 thou/uL (0.11-0.59); #Neutrophils 9.6 thou/uL (1.40-6.50); %Basophils 0.1 % (0.0-1.0); %Monocytes 9.5 % (0.0-10.0); %Neutrophils 69.3 % (42.0-75.0); Hemoglobin 11.8 g/dL (12.0-16.0); Mean Corpuscular HGB CONC 32.1 g/dL (32.0-36.0); Mean Corpuscular Hemoglobin 27.3 pg (27.0-31.0); Platelet Count 290 thou/uL (130-400); RBC Distribution Width 15.7 % (11.5-14.5); Red Blood Cell (RBC) Count 4.32 mill/uL (4.20-5.40); White Blood Cell (WBC) Count 13.8 thou/uL (4.8-10.8)
[2018-04-11 06:58] LABS: Anion Gap 12 mmol/L (10-20); BUN (Urea Nitrogen) 15 mg/dL (9.8-20.1); Calc. Creatinine Clearance 64 mL/min (70-130); Calcium 9.6 mg/dL (7.8-10.44); Carbon Dioxide 25 mmol/L (23-31); Chloride 99 mmol/L (98-107); Estimated GFR-MDRD 81; Glucose 162 mg/dL (83-110); Potassium 3.8 mmol/L (3.5-5.1); Sodium 132 mmol/L (136-145)
[2018-04-11] MEDS ORDERED: Diltiazem 125 MG in Sodium Chloride 0.9% 100 ML IVPB SCH (08:15)
[2018-04-11] MEDS: Thyroid 60 MG TAB PO SCH (09:48)
[2018-04-11] MEDS: predniSONE 5 MG TAB PO SCH (09:48)
[2018-04-11] MEDS: Potassium Chloride 20 MEQ TAB PO SCH ×2 (09:49→21:58)
[2018-04-11] MEDS: cloNIDine 0.3 MG TAB PO SCH ×2 (09:49→21:59)
[2018-04-11] MEDS: Ferrous Sulfate 325 MG TAB PO SCH ×2 (09:49→21:59)
[2018-04-11] MEDS: Digoxin 0.125 MG TAB PO SCH (09:50)
[2018-04-11] MEDS: Sotalol HCl 80 MG TAB PO SCH ×2 (09:50→21:58)
[2018-04-11] MEDS: PARoxetine 20 MG TAB PO SCH (09:50)
[2018-04-11] MEDS: Rosuvastatin 10 MG TAB PO SCH (09:51)
[2018-04-11] MEDS: Multivitamin W/ Minerals 1 TAB PO SCH (09:51)
[2018-04-11] MEDS: Metoprolol Tartrate 25 MG TAB PO SCH ×2 (09:51→21:59)
[2018-04-11] MEDS: LIALDA 1.2 GM PO SCH (09:56)
--- NOTE | 2018-04-11 10:15 | PDOC.CTH ---
<Leanna Monge - Last Filed: 04/11/18 10:21> Cardiology Progress Note - Subjective The pt seen and examined. No overnight events. No cardiac complaints. She cont. having N&V overnight last night, which she has for more than a month. She converted back to SR at 1943 on 04/10/18. - Objective Vital Signs Temp Pulse Resp BP BP Pulse Ox 04/11/18 09:50 98 04/11/18 09:49 178/79 H 04/11/18 07:51 98.2 F 92 16 163/71 H 99 04/11/18 03:52 98.7 F 100 17 195/86 H 95 04/11/18 00:34 114 H 197/84 H 04/11/18 00:00 197/84 H Weight 132 lb 04/10/18 04/11/18 04/12/18 06:59 06:59 06:59 Intake Total 1060 240 Output Total 1250 500 Balance -190 -260 - Physical Examination General/Neuro: alert & oriented x3 Neck: no JVD present Lungs: other: (diminished at bases) Heart: RRR Abdomen: soft Extremities: other: - Telemetry Telemetry Rhythm: SR - Labs Result Diagrams: 04/11/18 06:21 04/11/18 06:21 Troponin/CKMB CK-MB (CK-2) 1.5 ng/mL (0-6.6) 04/08/18 09:50 Troponin I Less than 0.010 ng/mL (< 0.028) 04/08/18 15:12 - Assessment/Plan 1. s/p PM placement on 04/09/18 2/2 Tachy-Timur syndrome - The PM site is MARGARITO, dry, and mild hematoma. 2. 2:1 Aflutter - Converted back to SR @ 1944 on 04/10/18 with Sotalol 80mg BID and Digoxin. S/p Watchman device placement in 2015; Cont. to monitor; Possible DCCV within a few days if she does not convert back to SR with Sotalol. 3. HTN - Metoprolol was increased to 50mg BID and Lisinopril 10mg from BID to TID from this AM; Will add Nifedipine 60mg qd from this AM. 4. COPD - stable with RA 6. Chronic diastolic HF - Echo in 05/2017 showed grade III diastolic dysfunction. Stable 7. Hypothyroidism MAR reviewed Review of Systems - Review of Systems Constitutional: reports: no symptoms reported EENTM: reports: no symptoms reported Respiratory: reports: no symptoms reported Cardiac (ROS): reports: no symptoms reported ABD/GI: reports: see HPI : reports: no symptoms reported Musculoskeletal: reports: no symptoms reported <Susan Mays - Last Filed: 04/11/18 20:01> Cardiology Progress Note - Objective Vital Signs Temp Pulse Resp BP BP Pulse Ox 04/11/18 15:11 98.6 F 92 18 131/61 97 04/11/18 14:20 132/64 04/11/18 13:25 79 143/70 H 04/11/18 11:39 101 H 206/82 H 04/11/18 11:36 98.3 F 101 H 18 206/82 H 98 04/11/18 09:50 98 04/11/18 09:49 178/79 H Weight 132 lb 04/10/18 04/11/18 04/12/18 06:59 06:59 06:59 Intake Total 1060 240 600 Output Total 1250 500 800 Balance -190 -260 -200 - Labs Result Diagrams: 04/11/18 06:21 04/11/18 06:21 Troponin/CKMB CK-MB (CK-2) 1.5 ng/mL (0-6.6) 04/08/18 09:50 Troponin I Less than 0.010 ng/mL (< 0.028) 04/08/18 15:12 - Assessment/Plan Pt. seen and eval. by me. i agree with the A/P by the SALES REPRESENTATIVE SUPERVISOR. The HR and BP have improved. Appears to be in sinus rhythm. Now c/o's of abd. pain and frequent BM' s. Chest clear. RRR, no edema. BS present.
[2018-04-11] MEDS ORDERED: hydrALAZINE 25 MG TAB PO SCH (10:30)
[2018-04-11] MEDS: Lisinopril 10 MG TAB PO SCH ×3 (10:55→21:59)
[2018-04-11] MEDS ORDERED: NIFEdipine XL 60 MG TAB PO SCH (11:15)
--- NOTE | 2018-04-11 12:30 | PRG ---
DATE OF SERVICE: 04/11/2018 SUBJECTIVE: Ms. Carrera is resting in bed quietly, in no distress. She has converted to normal sinus rhythm on numerous medications managed by Cardiology. We can likely let her go later today or tomorrow and we will follow the recommendations of Cardiology. Job ID: [id number]
[2018-04-11] MEDS: Dicyclomine 10 MG CAP PO PRN ×2 (15:50→22:02)
--- NOTE | 2018-04-11 16:06 | PDOC.CTH ---
Cardiology Progress Note - Subjective EP progress note: 04/11/18 Patient seen and evaluated. No new cardiac concerns or complaints today. Denies heart racing, palpitations, chest pain/pressure, dizziness, or passing out. No stroke like symptoms. Less pain at implant site today - Objective Vital Signs Temp Pulse Resp BP BP BP Pulse Ox 04/11/18 15:11 98.6 F 92 18 131/61 97 04/11/18 14:20 132/64 04/11/18 13:25 79 143/70 H 04/11/18 11:39 101 H 206/82 H 04/11/18 11:36 98.3 F 101 H 18 206/82 H 98 04/11/18 09:50 98 04/11/18 09:49 178/79 H 04/11/18 07:51 98.2 F 92 16 163/71 H 99 Weight 132 lb 04/10/18 04/11/18 04/12/18 06:59 06:59 06:59 Intake Total 1060 240 Output Total 1250 500 Balance -190 -260 - Physical Examination General/Neuro: alert & oriented x3, NAD Neck: carotid US brisk, no JVD present Lungs: CTA, unlabored respirations Heart: PMI normal Abdomen: NT/ND, soft - Telemetry Telemetry Rhythm: atrial tachycardia/flutter 2:1 - Labs Result Diagrams: 04/11/18 06:21 04/11/18 06:21 Troponin/CKMB CK-MB (CK-2) 1.5 ng/mL (0-6.6) 04/08/18 09:50 Troponin I Less than 0.010 ng/mL (< 0.028) 04/08/18 15:12 - Assessment/Plan 1. Atrial arrhythmias -atypical atrial flutter 2:1 AV conduction - sotalol loading, EKG 2-3 hrs after every sotalol dose to monitor QTc. -QTc 466ms this AM. Continue current Sotalol dose -consider CV on Monday. 2.Tachy- sally syndrome -s/p dual chamber PPM implant by on 04/09 3. No anticoagulation needed s/p watchman Continue sotalol loading and plan for CV later this week, with or possibly myself.
[2018-04-11] MEDS: HYDROcodone/Acetaminophen 5/325 mg Tablet PO PRN (17:59)
[2018-04-11] MEDS: busPIRone HCl 10 MG TAB PO SCH (21:59)
--- NOTE | 2018-04-12 05:59 | PDOC.FM ---
- Subjective Subjective: Ms. Carrera said she had a bad night last night again. Reported nausea, no vomiting. Had GI upset, stomach pain which she attributes to her IBS since she hasn't been getting bentyl here like she does at home. Notes her GI doctor told her she could take it every 20 min prn when things are really bad. She only takes it prn. - Objective MAR Reviewed: Yes Vital Signs & Weight: Vital Signs (12 hours) Temp Pulse Resp BP BP Pulse Ox 04/12/18 04:00 98.4 F 96 18 164/73 H 94 L 04/12/18 00:00 98.8 F 92 16 165/83 H 97 04/11/18 21:59 177/77 H 04/11/18 21:58 89 177/77 H 04/11/18 20:00 98.0 F 89 16 177/77 H 97 Weight Weight 59.874 kg I&O: 04/10/18 04/11/18 04/12/18 06:59 06:59 06:59 Intake Total 1060 240 600 Output Total 1250 500 800 Balance -190 -260 -200 Result Diagrams: 04/11/18 06:21 04/11/18 06:21 Phys Exam - Physical Examination lying in bed, uncomfortable HEENT: moist MMs Respiratory: no wheezing, no rhonchi, clear to auscultation bilateral Cardiovascular: RRR, no significant murmur Gastrointestinal: soft, no distention hypoactive bowel sounds Musculoskeletal: no edema Neurological: non-focal Psychiatric: normal affect Skin: normal turgor Dx/Plan (1) Symptomatic bradycardia Code(s): R00.1 - BRADYCARDIA, UNSPECIFIED Status: Acute (2) Tachy-sally syndrome Code(s): I49.5 - SICK SINUS SYNDROME Status: Acute (3) Hypertension Code(s): I10 - ESSENTIAL (PRIMARY) HYPERTENSION Status: Acute Qualifiers: Hypertension type: essential hypertension Qualified Code(s): I10 - Essential (primary) hypertension (4) Heart failure with preserved ejection fraction Code(s): I50.30 - UNSPECIFIED DIASTOLIC (CONGESTIVE) HEART FAILURE Status: Acute (5) Chronic back pain Code(s): M54.9 - DORSALGIA, UNSPECIFIED; G89.29 - OTHER CHRONIC PAIN Status: Chronic (6) Chronic anemia Code(s): D64.9 - ANEMIA, UNSPECIFIED Status: Chronic (7) Chronic atrial fibrillation Code(s): I48.2 - CHRONIC ATRIAL FIBRILLATION Status: Chronic (8) Hyperlipidemia Code(s): E78.5 - HYPERLIPIDEMIA, UNSPECIFIED Status: Chronic Qualifiers: Hyperlipidemia type: unspecified Qualified Code(s): E78.5 - Hyperlipidemia , unspecified (9) Hypothyroidism Code(s): E03.9 - HYPOTHYROIDISM, UNSPECIFIED Status: Chronic Qualifiers: Hypothyroidism type: acquired Qualified Code(s): E03.9 - Hypothyroidism, unspecified (10) COPD (chronic obstructive pulmonary disease) Status: Chronic - Plan Plan: Tachy-sally syndrome s/p pacemaker placement 04/09 - pt initially presented with symptomatic bradycardia - Telemetry monitoring: continues to be in SR, rate in 90s - Cardiology and EP consulted, appreciate recommendations. - On sotalol, digoxin. HTN - SBPs 160s-200s. - Currently on metoprolol, lisinopril, clonodine with nifedipine to start today. Appreciate recommendations from . HFpEF - no clinical sings of fluid overload, BNP 500 @ baseline. Last TTE 05/28/17 showed Grade 3 diastolic dysfunction with EF 60%. Paroxysmal a-fib - s/p watchman procedure 2015, no anticoagulation needed HLD -home rosuvastatin OA -home meds Chronic Back Pain - plan for surgery in April for herniated disk - pain managed by Dr. Nieto. Recently got epidural and takes [place] as needed. COPD - followed by Dr. Thomson outpatient - cont home albuterol inhaler prn IBS - managed by GI, Dr. Tello - takes mesalamine and takes bentyl prn Leukocytosis, improved -likely 2/2 stress response Chronic Normocytic Anemia - stable, Hgb 10.5 - cont home iron supp Hypothyroidism - TSH WNL - continue home armour thyroid Diet- HH PPx- Fall precautions, ambulate w/assist, SCDs CODE- Chemical Code/Intubation only, No chest compressions
[2018-04-12] MEDS ORDERED: Dicyclomine 20 MG TAB PO SCH ×2 (07:00→13:30)
--- NOTE | 2018-04-12 09:05 | PDOC.CTH ---
Cardiology Progress Note - Subjective EP progress note: Patient seen and evaluated. No new cardiac concerns or complaints today. Denies heart racing, palpitations, chest pain/pressure, dizziness, or passing out. No stroke like symptoms. + lower abd pain and cramping she thinks may be related to IBS. No bloody stool. Last normal BM Monday.. - Objective Vital Signs Temp Pulse Resp BP BP BP Pulse Ox 04/12/18 08:27 98.9 F 92 18 155/70 H 93 L 04/12/18 04:00 98.4 F 96 18 164/73 H 94 L 04/12/18 00:00 98.8 F 92 16 165/83 H 97 04/11/18 21:59 177/77 H 04/11/18 21:58 89 177/77 H Weight 132 lb 04/11/18 04/12/18 04/13/18 06:59 06:59 06:59 Intake Total 240 600 Output Total 500 800 Balance -260 -200 - Physical Examination General/Neuro: alert & oriented x3, NAD Neck: carotid US brisk, no JVD present Lungs: CTA, unlabored respirations Heart: PMI normal, RRR Abdomen: NT/ND, soft - Telemetry Telemetry Rhythm: SR - Labs Result Diagrams: 04/11/18 06:21 04/11/18 06:21 Troponin/CKMB CK-MB (CK-2) 1.5 ng/mL (0-6.6) 04/08/18 09:50 Troponin I Less than 0.010 ng/mL (< 0.028) 04/08/18 15:12 - Assessment/Plan . Atrial arrhythmias -atypical atrial flutter 2:1 AV conduction, now in SR - sotalol loading, EKG 2-3 hrs after every sotalol dose to monitor QTc. -QTc 466ms yesterday AM. awaiting EKG this AM 2.Tachy- sally syndrome -s/p dual chamber PPM implant by on 04/09 3. No anticoagulation needed s/p watchman Continue sotalol loading
[2018-04-12] MEDS: Digoxin 0.125 MG TAB PO SCH (10:01)
[2018-04-12] MEDS: Ferrous Sulfate 325 MG TAB PO SCH ×2 (10:01→22:07)
[2018-04-12] MEDS: Lisinopril 20 MG TAB PO SCH ×2 (10:01→22:07)
[2018-04-12] MEDS: cloNIDine 0.3 MG TAB PO SCH ×2 (10:01→22:05)
[2018-04-12] MEDS: NIFEdipine XL 60 MG TAB PO SCH (10:02)
[2018-04-12] MEDS: Metoprolol Tartrate 25 MG TAB PO SCH ×2 (10:02→22:07)
[2018-04-12] MEDS: Multivitamin W/ Minerals 1 TAB PO SCH (10:02)
[2018-04-12] MEDS: Potassium Chloride 20 MEQ TAB PO SCH ×2 (10:03→22:05)
[2018-04-12] MEDS: Rosuvastatin 10 MG TAB PO SCH (10:03)
[2018-04-12] MEDS: predniSONE 5 MG TAB PO SCH (10:03)
[2018-04-12] MEDS: PARoxetine 20 MG TAB PO SCH (10:03)
[2018-04-12] MEDS: Sotalol HCl 80 MG TAB PO SCH ×2 (10:03→22:03)
[2018-04-12] MEDS: Thyroid 60 MG TAB PO SCH (10:04)
[2018-04-12] MEDS: LIALDA 1.2 GM PO SCH (10:08)
--- NOTE | 2018-04-12 12:42 | PDOC.CTH ---
<Leanna Monge - Last Filed: 04/12/18 12:44> Cardiology Progress Note - Subjective The pt seen and examined. No overnight events. No cardiac complaints. She cont. complaining of lower ABD pain. - Objective Vital Signs Temp Pulse Resp BP BP BP Pulse Ox 04/12/18 10:03 92 04/12/18 10:02 92 04/12/18 10:01 92 177/77 H 04/12/18 08:27 98.9 F 92 18 155/70 H 93 L 04/12/18 04:00 98.4 F 96 18 164/73 H 94 L Weight 132 lb 04/11/18 04/12/18 04/13/18 06:59 06:59 06:59 Intake Total 240 600 Output Total 500 800 Balance -260 -200 - Physical Examination General/Neuro: alert & oriented x3 Neck: no JVD present Lungs: CTA Heart: RRR Abdomen: soft Extremities: other: (No edema) - Telemetry Telemetry Rhythm: SR - Labs Result Diagrams: 04/11/18 06:21 04/11/18 06:21 Troponin/CKMB CK-MB (CK-2) 1.5 ng/mL (0-6.6) 04/08/18 09:50 Troponin I Less than 0.010 ng/mL (< 0.028) 04/08/18 15:12 - Assessment/Plan 1. S/p PM placement on 04/09/18 2/2 Tachy-Timur syndrome - The PM site is CLINICAL SERVICES DIRECTOR, dry, and mild hematoma. 2. 2:1 Aflutter - Converted back to SR @ 1944 on 04/10/18 with Sotalol 80mg BID and Digoxin. S/p Watchman device placement in 2015; Cont. to monitor; 3. HTN - Will start Imdur 60mg qd from this PM 4. COPD - stable with RA 6. Chronic diastolic HF - Echo in 05/2017 showed grade III diastolic dysfunction. Stable 7. Hypothyroidism 8. Lower abd pain and cramping possible 2/2 IBS. - no diarrhea since today. MAR reviewed Review of Systems - Review of Systems Constitutional: reports: no symptoms reported EENTM: reports: no symptoms reported Respiratory: reports: no symptoms reported Cardiac (ROS): reports: no symptoms reported ABD/GI: reports: see HPI : reports: no symptoms reported Musculoskeletal: reports: no symptoms reported <Susan Mays - Last Filed: 04/12/18 17:20> Cardiology Progress Note - Objective Vital Signs Temp Pulse Resp BP BP BP BP 04/12/18 16:24 99.2 F 69 18 120/55 L 04/12/18 12:00 75 18 138/63 04/12/18 10:03 92 04/12/18 10:02 92 04/12/18 10:01 92 177/77 H 04/12/18 08:27 98.9 F 92 18 155/70 H Pulse Ox 04/12/18 16:24 95 04/12/18 12:00 93 L 04/12/18 10:03 04/12/18 10:02 04/12/18 10:01 04/12/18 08:27 93 L Weight 132 lb 04/11/18 04/12/18 04/13/18 06:59 06:59 06:59 Intake Total 240 600 720 Output Total 500 800 Balance -260 -200 720 - Labs Result Diagrams: 04/11/18 06:21 04/11/18 06:21 Troponin/CKMB CK-MB (CK-2) 1.5 ng/mL (0-6.6) 04/08/18 09:50 Troponin I Less than 0.010 ng/mL (< 0.028) 04/08/18 15:12 - Assessment/Plan Pt. seen and eval. by me. The BP was better around noon. Her abd. pain has improved. The HR is stable ,NSR. I agree otherwise with the A/P by the AUTOMATIC MAINTAINER.
--- NOTE | 2018-04-12 14:33 | EKG ---
Test Reason : TIMED Blood Pressure : / mmHG Vent. Rate : 090 BPM Atrial Rate : 090 BPM P-R Int : 190 ms QRS Dur : 092 ms QT Int : 358 ms P-R-T Axes : 078 045 126 degrees QTc Int : 437 ms Normal sinus rhythm ST depression, consider subendocardial injury or digitalis effect Abnormal QRS-T angle, consider primary T wave abnormality Abnormal ECG When compared with ECG of 10-APR-2018 05:40, Nonspecific T wave abnormality has replaced inverted T waves in Inferior leads Nonspecific T wave abnormality has replaced inverted T waves in Lateral leads Confirmed by DORY TATE, DR. Buenrostro ([id number]) on 04/12/2018 2:32:40 PM Referred By: [facility] Confirmed By:DR. Porter CONNORS MD
[2018-04-12] MEDS: busPIRone HCl 10 MG TAB PO SCH (22:00)
--- NOTE | 2018-04-12 23:01 | HP ---
ADDENDUM: To the note of Dr. Didi Jorge. Ms. Carrera is resting quietly in bed, in no distress. The industrial economist is working very aggressively on her blood pressure, changing her medications every day or two. We will continue to follow with Cardiology. She offers no new complaints today. Job ID: [id number]
--- NOTE | 2018-04-13 05:53 | PDOC.FM ---
- Subjective Subjective: Ms. Carrera reports feeling well this morning. She was able to tolerate dinner well last night and denies nausea, vomiting. She notes that she has felt a little unsteady when getting to bathroom but she feels this is because she has been in bed so much. - Objective Vital Signs & Weight: Vital Signs (12 hours) Temp Pulse Resp BP BP Pulse Ox 04/13/18 04:01 98.6 F 62 19 111/48 L 92 L 04/12/18 22:07 116/53 L 04/12/18 22:05 116/53 L 04/12/18 22:03 76 116/53 L 04/12/18 20:45 98.2 F 76 18 116/53 L 93 L 04/12/18 20:05 95 Weight Weight 59.874 kg I&O: 04/11/18 04/12/18 04/13/18 06:59 06:59 06:59 Intake Total 235 988 6474 Output Total 382 033 2729 Balance -260 -200 -220 Result Diagrams: 04/11/18 06:21 04/11/18 06:21 Phys Exam - Physical Examination Respiratory: no wheezing, clear to auscultation bilateral Cardiovascular: RRR, no significant murmur Gastrointestinal: soft, non-tender, no distention, positive bowel sounds Musculoskeletal: no edema Neurological: non-focal Psychiatric: normal affect Skin: normal turgor Dx/Plan (1) Symptomatic bradycardia Code(s): R00.1 - BRADYCARDIA, UNSPECIFIED Status: Acute (2) Tachy-sally syndrome Code(s): I49.5 - SICK SINUS SYNDROME Status: Acute (3) Hypertension Code(s): I10 - ESSENTIAL (PRIMARY) HYPERTENSION Status: Acute Qualifiers: Hypertension type: essential hypertension Qualified Code(s): I10 - Essential (primary) hypertension (4) Heart failure with preserved ejection fraction Code(s): I50.30 - UNSPECIFIED DIASTOLIC (CONGESTIVE) HEART FAILURE Status: Acute (5) Chronic back pain Code(s): M54.9 - DORSALGIA, UNSPECIFIED; G89.29 - OTHER CHRONIC PAIN Status: Chronic (6) Chronic anemia Code(s): D64.9 - ANEMIA, UNSPECIFIED Status: Chronic (7) Chronic atrial fibrillation Code(s): I48.2 - CHRONIC ATRIAL FIBRILLATION Status: Chronic (8) Hyperlipidemia Code(s): E78.5 - HYPERLIPIDEMIA, UNSPECIFIED Status: Chronic Qualifiers: Hyperlipidemia type: unspecified Qualified Code(s): E78.5 - Hyperlipidemia , unspecified (9) Hypothyroidism Code(s): E03.9 - HYPOTHYROIDISM, UNSPECIFIED Status: Chronic Qualifiers: Hypothyroidism type: acquired Qualified Code(s): E03.9 - Hypothyroidism, unspecified (10) COPD (chronic obstructive pulmonary disease) Status: Chronic - Plan Plan: Tachy-sally syndrome s/p pacemaker placement 04/09 - pt initially presented with symptomatic bradycardia - Telemetry monitoring: continues to be in SR, rate in 60s - Cardiology and EP consulted, appreciate recommendations HTN - SBPs now decreased to 115s - Will defer to cardiology for management of BP. Currently on metoprolol, lisinopril, clonodine, sotalol, digoxin, nifedipine, with new addition of imdur. - hydralazine prn HFpEF - no clinical sings of fluid overload, BNP 500 @ baseline. Last TTE 05/28/17 showed Grade 3 diastolic dysfunction with EF 60%. Paroxysmal a-fib - s/p watchman procedure 2016, no anticoagulation needed HLD -home rosuvastatin OA -home meds Chronic Back Pain - plan for surgery in April for herniated disk - pain managed by Dr. Nieto. Recently got epidural and takes [place] as needed. COPD - followed by Dr. Thomson outpatient - cont home albuterol inhaler prn IBS - managed by GI, Dr. Tello - takes mesalamine and takes bentyl prn - symptoms improving Leukocytosis, improved -likely 2/2 stress response Chronic Normocytic Anemia - stable, Hgb 10.5 - cont home iron supp Hypothyroidism - TSH WNL - continue home armour thyroid Diet- HH PPx- Fall precautions, ambulate w/assist, SCDs CODE- Chemical Code/Intubation only, No chest compressions Dispo: pending cardiology recommendations
[2018-04-13] MEDS: predniSONE 5 MG TAB PO SCH (09:40)
[2018-04-13] MEDS: Metoprolol Tartrate 25 MG TAB PO SCH (09:41)
[2018-04-13] MEDS: cloNIDine 0.3 MG TAB PO SCH (09:41)
[2018-04-13] MEDS: PARoxetine 20 MG TAB PO SCH (09:41)
[2018-04-13] MEDS: Digoxin 0.125 MG TAB PO SCH (09:41)
[2018-04-13] MEDS: Lisinopril 20 MG TAB PO SCH (09:42)
[2018-04-13] MEDS: NIFEdipine XL 60 MG TAB PO SCH (09:42)
[2018-04-13] MEDS: Ferrous Sulfate 325 MG TAB PO SCH (09:42)
[2018-04-13] MEDS: Sotalol HCl 80 MG TAB PO SCH (09:42)
[2018-04-13] MEDS: Potassium Chloride 20 MEQ TAB PO SCH (09:42)
[2018-04-13] MEDS: Thyroid 60 MG TAB PO SCH (09:43)
[2018-04-13] MEDS: Multivitamin W/ Minerals 1 TAB PO SCH (09:43)
[2018-04-13] MEDS: Rosuvastatin 10 MG TAB PO SCH (09:43)
[2018-04-13] MEDS: LIALDA 1.2 GM PO SCH (09:43)
[2018-04-13] MEDS: Dicyclomine 10 MG CAP PO PRN (10:38)
--- NOTE | 2018-04-13 12:38 | PRG ---
DATE OF SERVICE: 04/13/2018 ADDENDUM: This is an addendum to the note of Dr. Didi Jorge. Ms. Carrera's blood pressure is being managed by the Cardiology Service. We will continue to follow with them. She will likely be ready for discharge in a day or two. Job ID: [id number]
--- NOTE | 2018-04-13 13:03 | PDOC.CTH ---
<Leanna Monge - Last Filed: 04/13/18 12:59> Cardiology Progress Note - Subjective The Pt seen and examined. No overnight events. No cardiac complaints. She stated no more ABD pain since last night. She had breakfast without any symptoms. - Objective Vital Signs Temp Pulse Resp BP BP Pulse Ox 04/13/18 12:00 98.9 F 72 16 123/56 L 93 L 04/13/18 09:42 75 133/59 L 04/13/18 09:41 75 133/59 L 04/13/18 08:00 99.1 F 75 18 133/59 L 95 04/13/18 04:01 98.6 F 62 19 111/48 L 92 L Weight 131 lb 9.6 oz 04/12/18 04/13/18 04/14/18 06:59 06:59 06:59 Intake Total 600 1490 Output Total 800 1750 Balance -200 -260 - Physical Examination General/Neuro: alert & oriented x3 Neck: no JVD present Lungs: CTA Heart: RRR Abdomen: soft Extremities: other: (No edema) - Telemetry Telemetry Rhythm: SR - Labs Result Diagrams: 04/11/18 06:21 04/11/18 06:21 Troponin/CKMB CK-MB (CK-2) 1.5 ng/mL (0-6.6) 04/08/18 09:50 Troponin I Less than 0.010 ng/mL (< 0.028) 04/08/18 15:12 - Assessment/Plan 1. S/p PM placement on 04/09/18 2/2 Tachy-Timur syndrome - The PM site is MARGARITO, dry, and mild hematoma. 2. 2:1 Aflutter - Converted back to SR @ 1944 on 04/10/18 with Sotalol 80mg BID and Digoxin. S/p Watchman device placement in 2015; Cont. to monitor; 3. HTN - Well controlled 4. COPD - stable with RA 6. Chronic diastolic HF - Echo in 05/2017 showed grade III diastolic dysfunction. Stable 7. Hypothyroidism 8. Lower abd pain and cramping possible 2/2 IBS. - no diarrhea since today. MAR reviewed * From Cardiac stand point, the pt is stable to d/c home. F/u within 10 days with ' office for PM site/Hospital follow up. Review of Systems - Review of Systems Constitutional: reports: no symptoms reported EENTM: reports: no symptoms reported Respiratory: reports: no symptoms reported Cardiac (ROS): reports: no symptoms reported ABD/GI: reports: no symptoms reported : reports: no symptoms reported Musculoskeletal: reports: no symptoms reported Skin: reports: no symptoms reported <Susan Mays - Last Filed: 04/13/18 17:17> Cardiology Progress Note - Objective Vital Signs Temp Pulse Resp BP BP Pulse Ox 04/13/18 15:39 98.5 F 67 18 117/53 L 95 04/13/18 12:00 98.9 F 72 16 123/56 L 93 L 04/13/18 09:42 75 133/59 L 04/13/18 09:41 75 133/59 L 04/13/18 08:00 99.1 F 75 18 133/59 L 95 Weight 131 lb 9.6 oz 04/12/18 04/13/18 04/14/18 06:59 06:59 06:59 Intake Total 600 1490 Output Total 800 1750 Balance -200 -260 - Labs Result Diagrams: 04/11/18 06:21 04/11/18 06:21 Troponin/CKMB CK-MB (CK-2) 1.5 ng/mL (0-6.6) 04/08/18 09:50 Troponin I Less than 0.010 ng/mL (< 0.028) 04/08/18 15:12 - Assessment/Plan Pt. seen and eval. by me. I agree with the A/P by the MIS SPECIALIST. The BP is trending down. HR stable. Stopped digoxin. Stopped procardia.Continue other meds for now. OK to d/c to home. Follow up in the office as above.
--- NOTE | 2018-04-13 15:27 | PDOC.CTH ---
Cardiology Progress Note - Subjective EP progress note: Patient seen and evaluated. No new cardiac concerns or complaints today. Denies heart racing, palpitations, chest pain/pressure, or passing out. No stroke like symptoms. Feeling well today. Slight bruising and tenderness at PPM site. - Objective Vital Signs Temp Pulse Resp BP BP Pulse Ox 04/13/18 12:00 98.9 F 72 16 123/56 L 93 L 04/13/18 09:42 75 133/59 L 04/13/18 09:41 75 133/59 L 04/13/18 08:00 99.1 F 75 18 133/59 L 95 04/13/18 04:01 98.6 F 62 19 111/48 L 92 L Weight 131 lb 9.6 oz 04/12/18 04/13/18 04/14/18 06:59 06:59 06:59 Intake Total 600 1490 Output Total 800 1750 Balance -200 -260 - Physical Examination General/Neuro: alert & oriented x3, NAD Neck: carotid US brisk, no JVD present Lungs: CTA, unlabored respirations Heart: PMI normal, RRR Abdomen: NT/ND, soft - Telemetry Telemetry Rhythm: SR - Labs Result Diagrams: 04/11/18 06:21 04/11/18 06:21 Troponin/CKMB CK-MB (CK-2) 1.5 ng/mL (0-6.6) 04/08/18 09:50 Troponin I Less than 0.010 ng/mL (< 0.028) 04/08/18 15:12 - Assessment/Plan 1. Atrial arrhythmias -atypical atrial flutter 2:1 AV conduction, now in SR - sotalol loading, EKG 2-3 hrs after every sotalol dose to monitor QTc. -QTc 414 after dose this AM. QTc stable after dose #5. 2.Tachy- sally syndrome -s/p dual chamber PPM implant by on 04/09 3. No anticoagulation needed s/p watchman Continue sotalol 80mg PO BID. OK to DC home by EP
[2018-04-13 15:40] VITALS: BP 117/53; TEMP 98.5
--- NOTE | 2018-04-13 22:38 | EKG ---
Test Reason : TIMED Blood Pressure : / mmHG Vent. Rate : 070 BPM Atrial Rate : 070 BPM P-R Int : 224 ms QRS Dur : 084 ms QT Int : 376 ms P-R-T Axes : 051 014 045 degrees QTc Int : 406 ms Sinus rhythm with 1st degree A-V block Septal infarct , age undetermined Abnormal ECG When compared with ECG of 12-APR-2018 11:01, SC interval has increased Septal infarct is now Present T wave inversion now evident in Anterior leads Confirmed by DORY TATE, DR. Buenrostro (4) on 04/13/2018 10:38:06 PM Referred By: MIKAELA Confirmed By:DR. Porter CONNORS MD
--- NOTE | 2018-04-13 22:43 | EKG ---
Test Reason : TIMED Blood Pressure : / mmHG Vent. Rate : 076 BPM Atrial Rate : 076 BPM P-R Int : 220 ms QRS Dur : 088 ms QT Int : 368 ms P-R-T Axes : 045 049 239 degrees QTc Int : 414 ms Sinus rhythm with 1st degree A-V block Nonspecific ST and T wave abnormality Abnormal ECG When compared with ECG of 12-APR-2018 23:50, (Unconfirmed) Criteria for Septal infarct are no longer Present T wave inversion no longer evident in Anterior leads Nonspecific T wave abnormality now evident in Lateral leads Confirmed by DORY TATE, DR. Buenrostro (4) on 04/13/2018 10:43:44 PM Referred By: [facility] Confirmed By:DR. Porter CONNORS MD
== END 2018-04-13 19:02 | disposition home or self-care (01) | DRG 243 ==
LOC: ERS 09:30 → OBSVTOIN 11:47 → ERHOLD 11:47 → 2NO 13:28
PROVIDERS: ADMIT Student in an Organized Health Care Education/Training Program; ATTEND Student in an Organized Health Care Education/Training Program
PROC: 0JH606Z Insertion of Pacemaker, Dual Chamber into Chest Subcutaneous Tissue and Fascia, Open Approach (ICD-10-PCS; principal; 2018-04-09)
PROC: 02H63JZ Insertion of Pacemaker Lead into Right Atrium, Percutaneous Approach (ICD-10-PCS; 2018-04-09)
PROC: 02HK3JZ Insertion of Pacemaker Lead into Right Ventricle, Percutaneous Approach (ICD-10-PCS; 2018-04-09)
DX: I49.5 Sick sinus syndrome (principal); I48.92 Unspecified atrial flutter; I50.32 Chronic diastolic (congestive) heart failure; I25.2 Old myocardial infarction; I11.0 Hypertensive heart disease with heart failure; Z86.73 Personal history of transient ischemic attack (TIA), and cerebral infarction without residual deficits; J44.9 Chronic obstructive pulmonary disease, unspecified; E78.5 Hyperlipidemia, unspecified; E03.9 Hypothyroidism, unspecified; Z88.8 Allergy status to other drugs, medicaments and biological substances; D64.9 Anemia, unspecified; M54.9 Dorsalgia, unspecified; G89.29 Other chronic pain; I48.0 Paroxysmal atrial fibrillation; K58.9 Irritable bowel syndrome, unspecified; D72.829 Elevated white blood cell count, unspecified; M19.90 Unspecified osteoarthritis, unspecified site
CPT/HCPCS: 33208; 36415; 71045; 80048; 80053; 82553; 83690; 83735; 83880; 84443; 84484; 85025; 93005; 93010; 93798; 94664; 94760; 96374; 99152; 99153; C1785; C1898; J0360; J0461; J0690; J1160; J1580; J2001; J2250; J2550; J7050; Q0162

== ENCOUNTER 2018-05-19 16:33 | Emergency (ER) | payer MEDICARE, BC ==
[2018-05-19 17:29] LABS: #Eosinphils 0.1 thou/uL (0.0-0.7); #Lymphocytes 2.8 thou/uL (1.20-3.40); #Monocytes 0.7 thou/uL (0.11-0.59); #Neutrophils 9.8 thou/uL (1.40-6.50); %Basophils 0.2 % (0.0-1.0); %Eosinophils 0.5 % (0.0-10.0); %Monocytes 5.1 % (0.0-10.0); %Neutrophils 73.2 % (42.0-75.0); Hemoglobin 10.4 g/dL (12.0-16.0); Mean Corpuscular HGB CONC 33.6 g/dL (32.0-36.0); Mean Corpuscular Hemoglobin 27.4 pg (27.0-31.0); Mean Corpuscular Volume 81.3 fL (78.0-98.0); Mean Platelet Volume 7.2 fL (7.4-10.4); Platelet Count 314 thou/uL (130-400); RBC Distribution Width 15.5 % (11.5-14.5); Red Blood Cell (RBC) Count 3.81 mill/uL (4.20-5.40); White Blood Cell (WBC) Count 13.3 thou/uL (4.8-10.8)
--- NOTE | 2018-05-19 17:41 | CT ---
CT OF HEAD NONCONTRAST: 05/19/18 INDICATION: Altered mental status. FINDINGS: There is age appropriate size ventricular system. Mild to moderate chronic ischemic disease of the c erebral white matter is present. There is no intracranial hemorrhage, mass effect or midline shift. No acute fluid level of the visualized paranasal sinuses. IMPRESSION: 1. No acute intracranial hemorrhage or mass effect. 2. Mild to moderate chronic ischemic disease. POS: [facility]
[2018-05-19 17:51] LABS: PTT 24.2 SEC (22.9-36.1); Prothrombin Time 13.1 SEC (12.0-14.7)
--- NOTE | 2018-05-19 17:51 | RAD ---
FRONTAL VIEW CHEST: 05/19/18 COMPARISON: 04/09/18. INDICATION: Altered mental status with slurred speech and weakness. FINDINGS: There is left basilar, retrocardiac density with suggestion of associated air bronchograms. No signif icant opacity of the right lung is seen. There is enlargement of cardiac silhouette and pulmonary vas culature. Hazy density at the inferior left chest may relate to pleural fluid, mild in volume. Chest is otherwise similar. IMPRESSION: Left basilar density indicating probably pleural fluid with adjacent consolidation that may relate to pneumonia. Evidence to indicate CHF. Recommend continued followup to resolution. POS: [facility]
[2018-05-19 17:53] LABS: ALT (SGPT) 14 U/L (8-55); AST (SGOT) 14 U/L (5-34); Albumin 3.7 g/dL (3.4-4.8); Alkaline Phosphatase 54 U/L (40-150); Anion Gap 16 mmol/L (10-20); BUN (Urea Nitrogen) 17 mg/dL (9.8-20.1); Bilirubin, Total 0.3 mg/dL (0.2-1.2); CK (CPK) 23 U/L (29-168); Calc. Creatinine Clearance 0 mL/min (70-130); Calcium 9.1 mg/dL (7.8-10.44); Carbon Dioxide 21 mmol/L (23-31); Chloride 99 mmol/L (98-107); Estimated GFR-MDRD 67; Globulin 2.9 g/dL (2.4-3.5); Glucose 147 mg/dL (83-110); Lipase 14 U/L (8-78); Potassium 5.4 mmol/L (3.5-5.1); Protein, Total 6.6 g/dL (6.0-8.3); Sodium 131 mmol/L (136-145)
[2018-05-19] MEDS ORDERED: hydrALAZINE 20 MG/ML VIAL ONE (18:11)
[2018-05-19 18:49] LABS: Bilirubin Negative (Negative); Blood, Urine Negative (Negative); Clarity CLEAR (Clear); Glucose, Urine (Dipstick) Negative (Negative); Leukocyte Negative (Negative); Nitrite Negative (Negative); Protein, Urine (Dipstick) Negative (Neg-Trace); Specific Gravity, Urine 1.005 (1.002-1.036); Urobilinogen 0.2 mg/dL (0.2-1.0)
== END 2018-05-19 19:37 | disposition home or self-care (01) ==
LOC: ERS 16:33
DX: J90 Pleural effusion, not elsewhere classified (principal); I49.9 Cardiac arrhythmia, unspecified; I48.91 Unspecified atrial fibrillation; E03.9 Hypothyroidism, unspecified; E78.5 Hyperlipidemia, unspecified; I10 Essential (primary) hypertension; M19.90 Unspecified osteoarthritis, unspecified site; I25.2 Old myocardial infarction; F41.9 Anxiety disorder, unspecified; Z79.899 Other long term (current) drug therapy
CPT/HCPCS: 36415; 36416; 70450; 71045; 80053; 81003; 82550; 83690; 83880; 84484; 85025; 85610; 85730; 93005; 96374; J0360

== ENCOUNTER 2018-06-30 15:04 | Inpatient (IN) | payer MEDICARE, BC ==
[~2018-06-30 15:04] MED LIST changes: +Heparin 1,000 UNITS/ML VIAL ONE; -ISOVUE-370 76%-LOCM 1 ML ONE
[2018-06-30] MEDS ORDERED: Diazepam 5 MG TAB ONE (16:13)
[2018-06-30] MEDS ORDERED: Ibuprofen 800 MG TAB ONE (16:13)
--- NOTE | 2018-06-30 19:45 | CT ---
CT LUMBAR SPINE WITH CORONAL AND SAGITTAL REFORMATIONS: 06/30/18 HISTORY: Low back pain. COMPARISON: 08/17/16. FINDINGS: There are vertebroplasty changes at L3 and T12 levels which were seen on the previous exam. T11 verte broplasty change is seen. Severe osteoporosis of the lumbar spine is again seen. irregularity and par tial height loss involving the posterior superior end plate of L4 vertebral body is redemonstrated. Severe height loss of the L1 vertebral body with approximately 75 to 80% height loss is stable. Facets demonstrate multilevel degenerative changes. Extensive intervertebral disc degenerative change s are again seen. Broad based. There are bilateral neural foraminal stenosis at L3-4 level, right maribel ed neural foraminal stenosis at L4-5 level and bilateral (left worse than right) and neural foraminal stenosis at L5-S1 level. There is sigmoid diverticulosis. IMPRESSION: Degenerative changes and multilevel compression fractures with vertebroplasty at T12, L3 and T11 leve ls. No acute fracture is seen. POS: [facility]
[2018-06-30] MEDS ORDERED: cloNIDine 0.1 MG TAB ONE (20:08)
[2018-06-30] MEDS ORDERED: hydrALAZINE 20 MG/ML VIAL ONE (21:34)
[2018-06-30] MEDS ORDERED: HYDROcodone/Acetaminophen 5/325 mg Tablet PO PRN (23:51)
[2018-06-30] MEDS ORDERED: Ondansetron PF 4 MG/2 ML Vial IVP PRN (23:51)
[2018-06-30] MEDS ORDERED: Acetaminophen 325 MG TAB PO PRN (23:51)
[2018-06-30] MEDS ORDERED: Diazepam 5 MG TAB PO PRN (23:51)
[2018-06-30] MEDS ORDERED: Ondansetron ODT 4 MG TAB SL PRN (23:51)
[2018-07-01] MEDS: HYDROcodone/Acetaminophen 5/325 mg Tablet PO PRN ×4 (00:03→22:45)
[2018-07-01] MEDS ORDERED: Loperamide HCl 2 MG CAP PO PRN (09:40)
[2018-07-01] MEDS ORDERED: Albuterol Sulfate 2.5 mg/3 ml Neb NEB PRN (09:40)
--- NOTE | 2018-07-01 09:56 | RAD ---
AP PORTABLE VIEW OF PELVIS: Date: 07/01/18 HISTORY: Left leg pain. COMPARISON: 10/29/16. FINDINGS: The left hip is rotated, which limits adequate evaluation. There is question of mild step-off along t he junction of the left femoral neck and femoral head inferiorly, but this may be projectionally rela parveen to rotation. As a result, dedicated views of the left hip are recommended for further evaluation to exclude the possibility of a fracture. No additional fracture is seen and there is no dislocation. Degenerative changes are seen in the lumbar spine. Vertebroplasty changes are again seen involving t he L3 vertebral body. Vascular calcifications seen in the abdominal aorta. IMPRESSION: Irregularity along the inferior aspect of the left femoral head/neck junction, which may be positiona l and related to rotation of the left femur. However, dedicated views of the left hip are recommended to exclude a fracture. CODE T. POS: [facility]
[2018-07-01] MEDS ORDERED: Metoprolol Tartrate 50 MG TAB PO SCH (10:15)
[2018-07-01] MEDS ORDERED: Sotalol HCl 80 MG TAB PO SCH (10:15)
[2018-07-01] MEDS ORDERED: Thyroid 60 MG TAB PO SCH (10:15)
[2018-07-01] MEDS ORDERED: cloNIDine 0.3 MG TAB PO SCH (10:15)
[2018-07-01] MEDS ORDERED: predniSONE 5 MG TAB PO SCH (11:00)
[2018-07-01] MEDS: Furosemide 40 MG TAB PO SCH ×2 (11:22→11:30)
[2018-07-01] MEDS ORDERED: hydrALAZINE 25 MG TAB PO SCH (11:45)
--- NOTE | 2018-07-01 11:58 | HP ---
CHIEF COMPLAINT: Pain, left leg. HISTORY OF PRESENT ILLNESS: This patient is a 77-year-old female, who presented to the hospital via the emergency department. This patient has a long and complicated history related to degenerative disease of her spine. The patient has had multiple prior compression fractures with vertebroplasty, and apparently, also kyphoplasty performed by Dr. Nieto. She also has a history of degenerative disk disease resulting in some nerve root compression and laminectomy done previously by Dr. Hannon. The patient reports that she has a recurrent disk herniation, which is apparently around the T11-T12 area, and in spite of the risk, there were plans for her to undergo surgery on Monday, 2 days from now to address this. The patient reports that about 9 days ago she started having some pain in her left hamstring area from her hip going down her leg. She was managing to work her way through it; however, 2 days ago, the patient got off balance and her walker started to fall to the side and she jerked quickly to catch the walker and correct herself. She felt some immediate pain, that was primarily in her left buttock area extending down her leg via the hamstring distribution to the posterior knee. This pain was more severe, and since that time, the patient has been completely incapable of straightening her leg. She reports every time she tries to extend her leg, she has severe cramping type pain that is intolerable. She is only comfortable in the position where her leg is flexed and slightly rotated laterally. The patient has tried very hard to avoid taking pain medications; however, she called Dr. Nieto's office and they told her that she was going to have to. She did try some hydrocodone, but was unable to get relief. She finally presented to the emergency department, where she was also incapable of getting adequate relief and is now admitted for pain control. The patient also had tried a TENS unit at home, which was also not helpful. REVIEW OF SYSTEMS: Primarily notable for insomnia. The patient reports she occasionally has to take medications, but generally tries to avoid taking anything that she does not absolutely have to. She has some numbness in the left foot extending up to the mid calf, it is not complete, and she reports that this has been of gradual onset. All other systems were reviewed and all pertinent positives and negatives noted in the history of present illness. PAST MEDICAL HISTORY: Notable for Sjogren disease requiring long-term steroid use. She has a history of atrial fibrillation, status post multiple ablations, ultimately with a Watchman device placed and pacemaker placed. She has diastolic dysfunction, hypertension, hyperlipidemia, history of TIA x2. She had a long bout of diverticulitis and complications. She reports that the plan was ultimately to perform surgery; however, she started developing severe problems with her back and therefore that was canceled. She has chronic irritable bowel syndrome, hypothyroidism, following thyroidectomy when she was 25. She has some chronic anemia. She has asthma that she believes is primarily related to seasonal allergies, and she has history of a pancreatitis, which was felt to be likely due to gallbladder disease. PAST SURGICAL HISTORY: Cholecystectomy, lumbar laminectomy, Watchman device, pacemaker placement, thyroidectomy secondary to goiter in her 20s, and vertebroplasty. FAMILY HISTORY: Notable for stroke. SOCIAL HISTORY: The patient denies alcohol, drugs, or smoking. The patient reports in the past she drank alcohol socially, but since she has required some of the medications, she has discontinued all alcohol consumption. She has been twice and states she is in a committed friendship now for the past 35 years. 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 She does not want chest compressions because of her severe osteoporosis. Her son is her surrogate decision maker. CURRENT MEDICATIONS: 1. Clonidine 0.3 mg p.o. t.i.d. 2. Omeprazole 20 mg daily. 3. Hydralazine 100 mg t.i.d. 4. Ibuprofen 400 mg q.6 hours p.r.n. 5. Lasix 40 mg daily. 6. Aspirin 81 mg daily. 7. Bentyl 10 mg q.i.d. p.r.n. 8. Ventolin nebulizer 2.5 q.4 p.r.n. 9. Imodium 2 mg p.o. q.i.d. p.r.n. 10. Zestril 20 mg p.o. b.i.d. 11. Imdur 30 mg p.o. b.i.d. 12. Hydrocodone 5/325 one p.o. q.6 hours p.r.n. 13. Folic acid 0.4 mg daily. 14. Sotalol 80 mg p.o. b.i.d. 15. Rosuvastatin 10 mg daily. 16. Multivitamin 1 p.o. daily. 17. Lopressor tartrate 50 mg p.o. b.i.d. 18. Mesalamine 3 mg p.o. daily. 19. Prednisone 50 mg daily. 20. Seligman Thyroid 60 mg p.o. daily. ALLERGIES: AMLODIPINE. PHYSICAL EXAMINATION: VITAL SIGNS: Temperature 98.4, pulse 67, respirations 18, O2 saturation 96% on room air, BP 166/80. GENERAL APPEARANCE: Age-appropriate female. She has some obvious brumfield facies. HEENT: PERRL. No OP lesions. NECK: Supple and symmetric. HEART: Regular without murmurs, gallops, or rubs. LUNGS: Clear bilaterally with no wheezes or rales. ABDOMEN: Soft, nontender, and nondistended. Positive bowel sounds. No masses. No organomegaly. EXTREMITIES: Warm and dry without edema. She has slightly diminished sensation in the left foot area. She has limited movement in the left lower extremity secondary to pain. Otherwise, she has normal spontaneous movement of the other 3 extremities with normal strength. She does have significant osteoarthropathy with some generalized sarcopenia. IMAGING STUDIES: X-ray of the pelvis shows irregularity along the inferior aspect of the left femoral head/neck junction, which may be positional or related to rotation of the left femur. Left hip films were recommended. CT of the lumbar spine shows degenerative changes and multilevel compression fractures with vertebroplasty at T12, L3, and T11 levels with no acute fracture seen. IMPRESSION AND PLAN: 1. Left lumbar radiculopathy with pain in the left lower extremity to the extent that the patient is unable to straighten her leg and therefore is essentially bed-bound at the moment. The patient is admitted for neurosurgical evaluation given the severity of her symptoms. The patient is a bit of a challenging case. We will avoid any type of physical therapy and continue to manage the pain as tolerable. The patient also has a need of some left hip films in order to rule out left hip fracture, which is very difficult to assess at the moment, given the patient's pain level with any attempts at movement. 2. History of Sjogren disease. The patient has been on significant doses of steroids. We will continue with her usual regimen. Do not see an indication for stress dosing at this time. 3. History of atrial fibrillation status post ablation with the pacemaker placement. We will continue with her usual home medications. 4. History of diastolic dysfunction. Continue with beta-blockers. 5. Hypertension. Resuming the patient's usual home regimen with multiple medications. 6. Hyperlipidemia. Continue rosuvastatin. 7. Hypothyroidism. Continue with her home regimen and thyroid medications. 8. History of asthma, appears to be well compensated at the moment. We will continue with nebulizers as needed. Job ID: [id number]
[2018-07-01] MEDS ORDERED: Milk Of Magnesia 30 ML UDCUP PO PRN (12:41)
--- NOTE | 2018-07-01 13:33 | CON ---
DATE OF CONSULTATION: This is a 30-minute initial patient evaluation, of which greater than 50% of the exam was spent in counseling and coordinating the patient's care. Remainder of the exam was spent in review of the patient's medical records and formulation of treatment plan. CHIEF COMPLAINT: Left hip and posterior thigh pain with known lumbar and thoracic spinal stenosis. HISTORY OF PRESENT ILLNESS: Ms. Carrera is a pleasant 77-year-old female who is a known patient to both and Dr. Hairston as she is scheduled to undergo a T10-T11 laminectomy with diskectomy. The patient states that this left lower extremity symptoms began 1-2 weeks ago and became progressively worse. She was unable to straighten the leg due to pain. She will use a walker at home. She has chronic pain syndrome and limits her narcotics due to constipation. She denies falls. She continues to complain of worsening pain throughout her entire body, but again significantly worse in the left hip, posterior thigh and achiness into the left posterior calf. PHYSICAL EXAMINATION: The patient is awake, alert, and appropriate. She is able to have good strength in the right lower extremity. Left lower extremity, she has good strength in the psoas, but she is unable to straighten the leg secondary to pain. She has good strength in the left dorsiflexion and plantar flexion. She has tenderness to palpation in the bilateral hips. IMPRESSION/DIAGNOSIS: Known lumbar and spinal stenosis with new onset left hip and posterior thigh pain. PLAN: We will plan on proceeding to the OR as scheduled on Monday. Obviously, the patient will be n.p.o. at midnight. Appreciate our medical colleagues have been managed the patient's numerous medical issues. We will hold her aspirin at this time. She does have a history of TIA roughly one month ago. She had done cardiology clearance from for surgery. So at this time, we will not repeat an EKG. We will work on adequate pain control and she will likely need inpatient rehab postoperative. Please call with any changes in the patient's neurologic status. Job ID: [id number]
--- NOTE | 2018-07-01 13:33 | RAD ---
2 VIEW LEFT HIP SERIES: Date: 07/01/18 INDICATION: Pain. FINDINGS: Frontal and frog-leg views of the left hip are performed. There is no discrete fracture. There is mil d osteoarthritis. IMPRESSION: No acute left hip fracture is identified. POS: [facility]
[2018-07-01] MEDS: hydrALAZINE 25 MG TAB PO SCH ×2 (15:12→22:36)
[2018-07-01] MEDS: cloNIDine 0.3 MG TAB PO SCH ×2 (15:12→22:35)
[2018-07-01] MEDS: Sotalol HCl 80 MG TAB PO SCH (22:34)
[2018-07-01] MEDS: Lisinopril 20 MG TAB PO SCH (22:35)
[2018-07-01] MEDS: Metoprolol Tartrate 50 MG TAB PO SCH (22:37)
[2018-07-01] MEDS: Senokot 8.6 MG TAB PO SCH (22:38)
[2018-07-01] MEDS: Docusate 100 MG CAP PO SCH (22:40)
[2018-07-02] MEDS: Cyclobenzaprine 10 MG TAB PO PRN ×2 (01:38→09:46)
[2018-07-02] MEDS: hydrALAZINE 20 MG/ML VIAL SLOW IVP PRN (04:02)
[2018-07-02] MEDS: Thyroid 60 MG TAB PO SCH (04:06)
[2018-07-02] MEDS: HYDROcodone/Acetaminophen 5/325 mg Tablet PO PRN ×3 (04:08→22:02)
[2018-07-02] MEDS ORDERED: Enoxaparin Sodium 40 MG/0.4 ML SYRINGE SC SCH (09:00)
--- NOTE | 2018-07-02 09:36 | PRG ---
DATE OF SERVICE: 07/02/2018 This is a 15-minute subsequent patient evaluation, in which greater than 50% of the exam was spent counseling and coordinating the patient's care. Remainder of the exam was spent in review of the patient's medical records and formulation of treatment plan. SUBJECTIVE: Ms. Carrera is now hospital day #2 with complaints of low back pain with left hip posterior thigh and posterior calf pain. She states again this has been present for the past 2 to 3 weeks. It has become so severe that she has difficulty moving her left leg. She again is scheduled for a thoracic laminectomy and diskectomy tomorrow. She has good strength in the right lower extremity and remains with her left leg bent to the side. She is able to wiggle her toes and has good strength in plantar flexion and dorsiflexion on the left, but refuses to move the left lower extremity much at all secondary to pain. Given the patient's development of symptoms, we will get a stat MRI of the lumbar spine without contrast to determine if we will need to update the surgical procedure. The patient in review of lumbar spine MRI from 2017 notes some stenosis at the L5-S1 foramen on the left. Again, we will follow up with a repeat MRI, and this needs to be done on a stat basis, but that again we can determine appropriate update in treatment plan. The patient is pleased with this and again, we will check back once her MRI has been completed. Please call with any changes in patient's neurologic status. We have asked that we hold the Lovenox and any other blood thinners. Again, the patient is going to surgery tomorrow, and we will make sure that she is n.p.o. at midnight. Job ID: [id number]
[2018-07-02] MEDS: hydrALAZINE 25 MG TAB PO SCH ×3 (09:51→22:17)
[2018-07-02] MEDS: predniSONE 5 MG TAB PO SCH (09:52)
[2018-07-02] MEDS: Metoprolol Tartrate 50 MG TAB PO SCH ×2 (09:53→22:02)
[2018-07-02] MEDS: Folic Acid 1 MG TAB PO SCH (09:53)
[2018-07-02] MEDS: Sotalol HCl 80 MG TAB PO SCH ×2 (09:53→22:01)
[2018-07-02] MEDS: Senokot 8.6 MG TAB PO SCH ×3 (09:53→23:36)
[2018-07-02] MEDS: Rosuvastatin 10 MG TAB PO SCH (09:53)
[2018-07-02] MEDS: Multivitamin W/ Minerals 1 TAB PO SCH (09:53)
[2018-07-02] MEDS: Furosemide 40 MG TAB PO SCH (09:53)
[2018-07-02] MEDS: Docusate 100 MG CAP PO SCH ×3 (09:53→22:10)
[2018-07-02] MEDS: cloNIDine 0.3 MG TAB PO SCH ×3 (09:54→22:02)
[2018-07-02] MEDS: Lisinopril 20 MG TAB PO SCH ×2 (13:38→22:01)
[2018-07-02 14:12] LABS: #Eosinphils 0.1 thou/uL (0.0-0.7); #Lymphocytes 1.5 thou/uL (1.20-3.40); #Monocytes 0.8 thou/uL (0.11-0.59); #Neutrophils 10.4 thou/uL (1.40-6.50); %Basophils 0.3 % (0.0-1.0); %Lymphocytes 11.8 % (21.0-51.0); %Neutrophils 80.9 % (42.0-75.0); Hemoglobin 10.4 g/dL (12.0-16.0); Mean Corpuscular HGB CONC 31.3 g/dL (32.0-36.0); Mean Corpuscular Hemoglobin 25.2 pg (27.0-31.0); Mean Corpuscular Volume 80.6 fL (78.0-98.0); Mean Platelet Volume 6.8 fL (7.4-10.4); Platelet Count 360 thou/uL (130-400); RBC Distribution Width 16.2 % (11.5-14.5); Red Blood Cell (RBC) Count 4.13 mill/uL (4.20-5.40); White Blood Cell (WBC) Count 12.8 thou/uL (4.8-10.8)
[2018-07-02 14:34] LABS: ALT (SGPT) 11 U/L (8-55); AST (SGOT) 14 U/L (5-34); Albumin 3.4 g/dL (3.4-4.8); Alkaline Phosphatase 55 U/L (40-150); Anion Gap 12 mmol/L (10-20); BUN (Urea Nitrogen) 13 mg/dL (9.8-20.1); Bilirubin, Total 0.5 mg/dL (0.2-1.2); Calc. Creatinine Clearance 56 mL/min (70-130); Calcium 9.3 mg/dL (7.8-10.44); Carbon Dioxide 26 mmol/L (23-31); Chloride 100 mmol/L (98-107); Estimated GFR-MDRD 65; Globulin 2.8 g/dL (2.4-3.5); Glucose 156 mg/dL (83-110); Potassium 3.8 mmol/L (3.5-5.1); Protein, Total 6.2 g/dL (6.0-8.3); Sodium 134 mmol/L (136-145)
--- NOTE | 2018-07-02 15:44 | MRI ---
MRI LUMBAR SPINE WITHOUT CONTRAST: HISTORY: Back pain. COMPARISON: MRI lumbar spine from 07/12/2013. MRI thoracic spine from 01/31/2018. FINDINGS: Multiplanar, multisequence, noncontrast-enhanced MRI images of the lumbar spine demonstrate previous vertebroplasty changes involving the T11, T12, and L3 levels. Numerous old compression fractures are seen involving the T11, T12, L1, L2, L3, and L4 levels. T10-T11: At the central aspect of the left T10-T11 level, there is a large lateral recess disk extru jeannette compressing the thecal sac and markedly narrowing the left T10-T11 lateral recess. This appears to have been present on the patient's previous thoracic spine MRI from 01/31/2018. T11-T12: There is a mild broad-based disk bulge. A minimal but not significant degree of central st enosis is seen. Mild left T11-T12 lateral recess stenosis is seen. There is mild bilateral neural f oraminal narrowing seen. T12-L1: Mild facet hypertrophy is seen. The central canal and neural foramen are patent. L1-L2: Disk desiccation is seen. There is significant disc space height loss involving the L1 verte bral height. This is unchanged since the previous comparison MRI from 2013. L1-L2: There is a broad-based disk bulge compressing the thecal sac, resulting in a moderate degree of central and lateral recess stenosis. This appears to be slightly more prominent than on the previ ous comparison exam from 07/12/2013. L2-L3: There is a broad-based central disk bulge, resulting in a moderate degree of central and late ral recess stenosis. This has not significantly changed since the previous comparison exam. There i s mild to moderate bilateral neural foraminal narrowing seen. L3-L4: Disk desiccation is seen. There is a broad-based central disk protrusion and osteophyte comp min seen. Bilateral facet hypertrophy is seen. There is minimal anterolisthesis of L3 on L4. There is some interval development of some right L3-L4 disk degeneration, with edema seen in the right L3- L4 disk space. L4-L5: There is disk desiccation seen. Irregularity is seen in the inferior endplate of L4 and the superior endplate of L5. There is a broad-based disk bulge seen with bilateral facet hypertrophy. F acet hypertrophy is more prominent on the left than on the right. Moderate bilateral neural foramina l narrowing is also seen. L5-S1: Disk desiccation is seen. There is a broad-based central disk protrusion with bilateral face t hypertrophy. There is synovial hypertrophy on the left with a synovial cyst, which extends into th e left L5-S1 lateral recess. This synovial cyst compresses the left S1 nerve root as it passes throu gh the lateral recess. This has developed since the previous comparison MRI. IMPRESSION: 1. Large T10-T11 left paracentral disk extrusion, unchanged since the previous MRI from 2018. 2. Newly developed left L5-S1 area of facet degeneration and synovial cyst compressing the left S1 n erve root. 3. Multilevel old lumbar spine fractures with multilevel vertebroplasty changes seen. POS: [facility]
[2018-07-02 16:26] LABS: PTT 23.5 SEC (22.9-36.1); Prothrombin Time 13.1 SEC (12.0-14.7)
--- NOTE | 2018-07-02 17:25 | PRG ---
DATE OF SERVICE: 07/02/2018 SUBJECTIVE: The patient is stable. She has no new complaints. She has been managing her pain with the oral pain medications. She has surgery anticipated for tomorrow. She was able to get herself through the MRI today. OBJECTIVE: VITAL SIGNS: Temperature 98.8, pulse 68, BP 158/63, respirations 16, and O2 saturation 95% on room air. GENERAL APPEARANCE: Age-appropriate female, in no distress. She is awake, alert, and oriented. HEART: Regular rate and rhythm without murmurs, gallops, or rubs. LUNGS: Clear to auscultation bilaterally. ABDOMEN: Soft, nontender, and nondistended. EXTREMITIES: Left lower extremity is warm and dry. She has good range of motion and strength distally, still keeping it finally rotated and flexed. LABORATORY DATA: Coags are normal. MRI of the lumbar spine shows the persistent significant disk protrusion at T10 and T11, unchanged from previous MRI. Also new development of an L5-S1 facet degeneration and synovial cyst compressing the left S1 nerve root. IMPRESSION AND PLAN: 1. Radiculopathy, apparently from T11. The patient has surgery planned for tomorrow with Neurosurgery holding her anticoagulation. Continue pain medications. 2. History of Sjogren's. Continue with her oral prednisone. May need some stress dosing postoperatively. 3. History of atrial fibrillation. Continuing home medications. Holding any anticoagulation. 4. History of diastolic dysfunction. Stable. No evidence of decompensation. Continue beta blockers. 5. Hypertension. Resumed on her usual home medications. 6. Hyperlipidemia. Stable. Continue rosuvastatin. 7. Hypothyroidism. Continue her home thyroid medications. 8. History of asthma. No evidence of active disease or decompensation. Job ID: [id number]
[2018-07-03] MEDS: hydrALAZINE 20 MG/ML VIAL SLOW IVP PRN ×2 (00:19→17:01)
[2018-07-03] MEDS: Thyroid 60 MG TAB PO SCH (05:15)
[2018-07-03] MEDS: Metoprolol Tartrate 50 MG TAB PO SCH ×2 (05:16→20:52)
[2018-07-03] MEDS: Sotalol HCl 80 MG TAB PO SCH ×2 (05:16→20:50)
[2018-07-03] MEDS ORDERED: Fentanyl 100 MCG/2 ML VIAL ONE ×5 (06:28→11:52)
[2018-07-03] MEDS ORDERED: Thrombin 5000 UNITS/5 ML VIAL ONE (06:33)
[2018-07-03] MEDS ORDERED: Sodium Chloride 0.9% 10 ML ONE (06:33)
[2018-07-03] MEDS ORDERED: Bacitracin Zinc Ointment 30 gm TUBE ONE (06:33)
[2018-07-03] MEDS: predniSONE 5 MG TAB PO SCH (10:01)
[2018-07-03] MEDS: cloNIDine 0.3 MG TAB PO SCH ×3 (10:01→20:50)
[2018-07-03] MEDS: Folic Acid 1 MG TAB PO SCH (10:01)
[2018-07-03] MEDS: Docusate 100 MG CAP PO SCH ×2 (10:01→20:54)
[2018-07-03] MEDS: Rosuvastatin 10 MG TAB PO SCH (10:02)
[2018-07-03] MEDS: Multivitamin W/ Minerals 1 TAB PO SCH (10:02)
[2018-07-03] MEDS: Lisinopril 20 MG TAB PO SCH ×2 (10:02→20:50)
[2018-07-03] MEDS: Furosemide 40 MG TAB PO SCH (10:02)
[2018-07-03] MEDS: hydrALAZINE 25 MG TAB PO SCH ×3 (10:02→20:50)
[2018-07-03] MEDS: Senokot 8.6 MG TAB PO SCH ×2 (10:03→20:52)
[2018-07-03] MEDS ORDERED: hydrALAZINE 20 MG/ML VIAL ONE (10:52)
--- NOTE | 2018-07-03 10:56 | PRG ---
DATE OF SERVICE: 07/03/2018 SUBJECTIVE: Ms. Carrera is known to me. She was scheduled for elective T10-11 laminectomy, left pediculectomy with transversectomy and diskectomy today. She was admitted this weekend for her thoracic myelopathy, but worsening left L4, L5, and S1 radiculopathy consistent with sciatica. I obtained an MRI yesterday and reviewed it. Her thoracic myelopathy remains unchanged with disk extrusion at the T10-11 segment, eccentric to the left. However, she has now symptomatic left L4 lateral recess stenosis at the left L3-L4 segment and left L5 foraminal stenosis with lateral disk extrusion and osteophytic buildup and left S1 radiculopathy. As such, I discussed with her adding on to her thoracic surgery, revision left L3-L4 and left L5-S1 hemilaminotomies and foraminotomies for decompression of the left L4 and left S1 nerve root. I also discussed with her a transfacet approach on the left side to approach the left L5 nerve root and decompress it. She would like to pursue surgery. She is aware of the risks, alternatives, complications, and indications for surgery and wishes that we proceed. Job ID: [id number]
[2018-07-03] MEDS ORDERED: HYDROmorphone 2 MG/ML VIAL ONE (12:13)
--- NOTE | 2018-07-03 13:12 | OP ---
DATE OF PROCEDURE: 07/03/2018 OPERATING ROOM: OR 12. WOUND CLASSIFICATION: Type 1 wound. WET PROCESS ASSISTANT HEAD MILLER: Erlin Chance PA-C. *The patient was planned for a T10-T11 surgery; however, she presented in addition to her thoracic myelopathy which we knew about her presentation over the weekend was in addition to the thoracic myelopathy involving left L4, left L5, and left S1 radiculopathy. I obtained an MRI on an urgent basis and this demonstrated significant stenosis of the left L3-L4 segment, but also at the left L5 with a far-lateral disk extrusion and at the left S1 lateral recess at the left L5-S1 segment, the patient has had surgery in this region before and as such, I discussed with her in addition to her thoracic surgery, we were going to perform a revision of left L3-L4 hemilaminotomy, foraminotomy, and revision of left L5-S1 hemilaminotomy, foraminotomy with a left L5-S1 trans-facet approach for lateral and far lateral decompression of the exiting left L5 nerve root. She wished and we pursue that surgery as well and informed consent was discussed. PROCEDURES PERFORMED: 1. T10-T11 laminectomy, left-sided facetectomy, trans-pediculectomy with left transversectomy approach for diskectomy. 2. Use of operative microscope for microdissection. 3. Revision left L3-L4 hemilaminotomy and foraminotomy. 4. Revision left L5-S1 hemilaminotomy, foraminotomy, and diskectomy. 5. Trans-facet approach for left L5-S1 lateral and far lateral disk extrusion for decompression of the left L5 nerve root. DESCRIPTION OF PROCEDURE: After informed consent was obtained from the patient, the patient was brought to the OR. Proper patient, pause, and identification were carried out. She was placed in excellent general endotracheal anesthesia and positioned prone on the OR table. All appropriate points were padded. We identified the prior L3-S1 linear incision from her prior lumbar spine surgery in the past. This area was sterilely cleansed, prepared, and draped along with the region over the T10-T11 segment dorsally and following proper patient, pause, and identification, the L3, L4, L5, and S1 segments were exposed on the left side. We encountered some scar tissue as expected. Localization film confirmed our area of interest. We then performed a left L3-L4 revision hemilaminotomy with decompression. I did not feel it necessary to do diskectomy at this segment as we obtained excellent decompression and foraminotomy with the medial facetectomy. We then turned our attention to the left L5-S1 segment and revision hemilaminotomy and foraminotomy were performed there. We then entered the disk space and the disk material was removed. I then incorporated the left L5-S1 trans-facet approach to follow the exiting left L5 nerve root into her foramen and lateral to the foramen. I removed disk material there as well. We then turned our attention to the T10-T11 segment, and an incision was made. Localization film confirmed our area of interest following subperiosteal dissection and placement of retractors. I then performed a T10-T11 laminectomy and with left-sided T10-T11 facetectomy. I then performed a left T11 pediculectomy for trans-pediculectomy approach and removed the transverse process. I did not need to remove the left T11 rib. We were able to access the lateral portion of the disk space at T10-T11 and skeletonized the left T10 nerve root. We identified disk material and this was removed in multiple small fragments and obviously was quite osteophytic. There was no spinal fluid leak. Hemostasis was maximized both in the thoracic wound and the lumbar wounds and copious irrigation occurred throughout. Once I was satisfied with our decompression and confirmed with the use of the operative microscope for microdissection. The wounds were closed in anatomic layers following sprinkling of vancomycin powder. The patient then emerged from anesthesia. Job ID: [id number]
[2018-07-03] MEDS ORDERED: PHENYLEPHRINE-NS 100 MCG/ML 10 ML SYRINGE ONE (14:38)
[2018-07-03] MEDS ORDERED: Lidocaine 1% PF 5 ML VIAL ONE (14:38)
[2018-07-03] MEDS ORDERED: PROPOFOL 200 MG/20 ML VIAL ONE (14:38)
[2018-07-03] MEDS ORDERED: Glycopyrrolate 0.2 MG/ML 5 ML SYRINGE ONE (14:38)
[2018-07-03] MEDS ORDERED: Rocuronium Bromide 10 MG/ML (10ML VIAL) ONE (14:38)
[2018-07-03] MEDS ORDERED: ePHEDrine 50 MG/ML VIAL ONE (14:38)
[2018-07-03] MEDS ORDERED: Ondansetron PF 4 MG/2 ML Vial ONE (14:38)
[2018-07-03] MEDS: Cyclobenzaprine 10 MG TAB PO PRN ×2 (14:40→23:33)
[2018-07-03] MEDS: HYDROcodone/Acetaminophen 5/325 mg Tablet PO PRN (14:40)
[2018-07-03] MEDS: CEFAZOLIN 2 GM in Sodium Chloride 0.9% 100 ML IVPB SCH ×2 (16:55→23:34)
[2018-07-03] MEDS: Ondansetron PF 4 MG/2 ML Vial SLOW IVP PRN (19:24)
[2018-07-03] MEDS: Morphine 4 MG/ML VIAL SLOW IVP PRN (20:20)
[2018-07-03] MEDS: HYDROcodone/Acetaminophen 10/325 mg Tablet PO PRN (20:49)
--- NOTE | 2018-07-03 21:52 | PDOC.PN ---
- Subjective Encounter Start Date: 07/03/18 Encounter Start Time: 16:00 Post-op. Still has some pain in her leg. Describes pain wrapping around abdomen bilaterally (T11 distribution). Still feels like she has some cramping. - Objective Resuscitation Status - Order Detail: 07/01/18 09:58 Resuscitation Status Routine Resuscitation Status: PRTL: Chem-Intubation Discussed with: Patient Additional comments: Cardioversion also ok. No compressions. Vital Signs & Weight: Vital Signs (12 hours) Pulse BP 07/03/18 20:50 72 181/76 H 07/03/18 17:01 72 196/65 H 07/03/18 14:39 72 180/89 H 07/03/18 10:02 72 152/71 H 07/03/18 10:01 152/71 H Weight Weight 140 lb I&O: 07/02/18 07/03/18 07/04/18 06:59 06:59 06:59 Intake Total 900 800 Output Total 1375 600 Balance -475 200 Result Diagrams: 07/02/18 13:59 07/02/18 13:59 Phys Exam - Physical Examination Constitutional: NAD Respiratory: no wheezing, no rales, no rhonchi Cardiovascular: RRR, no significant murmur Gastrointestinal: soft, non-tender, no distention Musculoskeletal: no edema Warm. Palpable pulses. Psychiatric: normal affect, A&O x 3 Dx/Plan (1) HNP (herniated nucleus pulposus with myelopathy), thoracic Code(s): M51.04 - INTERVERTEBRAL DISC DISORDERS W MYELOPATHY, THORACIC REGION Status: Acute (2) Radiculopathy due to lumbar intervertebral disc disorder Code(s): M51.16 - INTERVERTEBRAL DISC DISORDERS W RADICULOPATHY, LUMBAR REGION Status: Acute (3) Hyperlipidemia Code(s): E78.5 - HYPERLIPIDEMIA, UNSPECIFIED Status: Chronic Qualifiers: Hyperlipidemia type: unspecified Qualified Code(s): E78.5 - Hyperlipidemia , unspecified (4) Hypothyroidism Code(s): E03.9 - HYPOTHYROIDISM, UNSPECIFIED Status: Chronic Qualifiers: Hypothyroidism type: acquired Qualified Code(s): E03.9 - Hypothyroidism, unspecified (5) Sjogren's syndrome Code(s): M35.00 - SICCA SYNDROME, UNSPECIFIED Status: Chronic Qualifiers: Sjogren's organ involvement: unspecified organ involvement Qualified Code(s ): M35.00 - Sicca syndrome, unspecified - Plan * Post-op. Doing well. Still has some pain. Will likely take a few days to settle down. * Continue pain management. Stress dose steroids. * Therapy as tolerated.
[2018-07-04] MEDS: Ondansetron PF 4 MG/2 ML Vial SLOW IVP PRN ×2 (02:54→09:58)
[2018-07-04] MEDS: HYDROcodone/Acetaminophen 10/325 mg Tablet PO PRN (03:57)
[2018-07-04] MEDS: Cyclobenzaprine 10 MG TAB PO PRN ×2 (05:56→20:36)
[2018-07-04] MEDS: Morphine 4 MG/ML VIAL SLOW IVP PRN ×2 (06:09→12:38)
[2018-07-04] MEDS: Thyroid 60 MG TAB PO SCH (07:32)
[2018-07-04] MEDS ORDERED: Metoprolol Tartrate 5 MG/5 ML VIAL IVP SCH ×2 (09:15→14:00)
[2018-07-04] MEDS ORDERED: Morphine 4 MG/ML VIAL SLOW IVP SCH (09:15)
[2018-07-04] MEDS: CEFAZOLIN 2 GM in Sodium Chloride 0.9% 100 ML IVPB SCH ×3 (09:27→23:12)
--- NOTE | 2018-07-04 09:44 | PRG ---
DATE OF SERVICE: 07/04/2018 SUBJECTIVE: Ms. Carrera is postoperative day #1, having undergone multilevel thoracic and lumbar decompressions for low back and left lower extremity symptoms. The patient appears to be in quite amount of pain today. She complains of back and leg spasms. She states that at this time, her left leg pain is worse now than what it was before surgery, but in the same distribution, including left hip, some buttock pain with posterior thigh and posterior calf pain. She does; however, remain with good strength, although is very slow to move the left upper extremity. Given her continued hip pain, I have ordered x-rays to evaluate her hip, although I think her leg pain is likely related to radiculitis postoperatively. We will attempt to use IV Tylenol as well. The patient again is on steroids, so we are limited in using a Medrol Dosepak and she has attempted gabapentin in the past. Due to side effects, she was unable to take this. We may have to consider Lyrica tomorrow, but we will again continue to monitor the patient and have let her know that her pain should improve with time. Please call with any changes in the patient's neurologic status. Job ID: [id number]
[2018-07-04] MEDS: cloNIDine 0.3 MG TAB PO SCH ×3 (10:00→20:30)
[2018-07-04] MEDS ORDERED: Enoxaparin Sodium 30 MG/0.3 ML SYRINGE SC SCH (10:00)
[2018-07-04] MEDS: predniSONE 5 MG TAB PO SCH (10:00)
[2018-07-04] MEDS: Docusate 100 MG CAP PO SCH ×2 (10:01→20:26)
[2018-07-04] MEDS: Metoprolol Tartrate 50 MG TAB PO SCH ×2 (10:01→20:29)
[2018-07-04] MEDS: Folic Acid 1 MG TAB PO SCH (10:01)
[2018-07-04] MEDS: Furosemide 40 MG TAB PO SCH (10:01)
[2018-07-04] MEDS: hydrALAZINE 25 MG TAB PO SCH ×3 (10:01→21:32)
[2018-07-04] MEDS: Multivitamin W/ Minerals 1 TAB PO SCH (10:01)
[2018-07-04] MEDS: Lisinopril 20 MG TAB PO SCH ×2 (10:01→20:30)
[2018-07-04] MEDS: Rosuvastatin 10 MG TAB PO SCH (10:02)
[2018-07-04] MEDS: Sotalol HCl 80 MG TAB PO SCH ×2 (10:02→20:29)
[2018-07-04] MEDS: Senokot 8.6 MG TAB PO SCH ×2 (10:02→20:26)
[2018-07-04 10:05] LABS: Hemoglobin 11.1 g/dL (12.0-16.0); Mean Corpuscular HGB CONC 31.2 g/dL (32.0-36.0); Mean Corpuscular Hemoglobin 25.5 pg (27.0-31.0); Mean Corpuscular Volume 81.5 fL (78.0-98.0); Mean Platelet Volume 6.8 fL (7.4-10.4); Platelet Count 351 thou/uL (130-400); RBC Distribution Width 16.7 % (11.5-14.5); Red Blood Cell (RBC) Count 4.37 mill/uL (4.20-5.40); White Blood Cell (WBC) Count 22.8 thou/uL (4.8-10.8)
[2018-07-04 10:23] LABS: Band 4 % (5-11); Lymphocytes 22 % (21-51); MDiff Complete? YES; Monocytes 5 % (0-10); Neutrophil 67 % (42-75); Platelet Morphology Comment Appears Adequate; Polychromasia SLIGHT = 2-3 cells (100X) (0-2/hpf); Reactive Lymphocytes 2 % (0-10)
[2018-07-04 10:28] LABS: Anion Gap 18 mmol/L (10-20); BUN (Urea Nitrogen) 10 mg/dL (9.8-20.1); Calc. Creatinine Clearance 63 mL/min (70-130); Calcium 9.5 mg/dL (7.8-10.44); Carbon Dioxide 20 mmol/L (23-31); Chloride 101 mmol/L (98-107); Estimated GFR-MDRD 75; Glucose 175 mg/dL (83-110); Magnesium 1.7 mg/dL (1.6-2.6); Sodium 136 mmol/L (136-145)
--- NOTE | 2018-07-04 10:28 | PRG ---
DATE OF SERVICE: 07/04/2018 SUBJECTIVE: It was notified this morning, the patient was having significant tachycardia with heart rate in the 140s. Ordered EKG. Came to see the patient. The patient reports she has been in severe pain throughout the night, which apparently got substantially worse after I saw her last evening. She reports the pain medicines were not adequate. She also has significant nausea this morning. She reports the pain is in her back and is a burning type pain. It is also wrapping around her abdomen and the T11 distribution. OBJECTIVE: VITAL SIGNS: Temperature is 98.8, T-max is 99.3, pulse 145, respirations 20, O2 saturation 93% on room air, and BP initially was 186/105. GENERAL: The patient appeared to be in significant discomfort. She is awake and conversant. HEART: Her heart is tachycardic, but regular without murmurs noted. LUNGS: Clear bilaterally without wheezes or rales. ABDOMEN: Soft, nontender, and nondistended. Positive bowel sounds. EXTREMITIES: Without edema and warm to touch with good peripheral pulses palpated. IMAGING DATA: EKG revealed SVT with heart rate of 145 with right axis deviation and some rate related ischemic changes. IMPRESSION AND PLAN: 1. Acute onset supraventricular tachycardia. The patient was given a dose of IV Lopressor. She takes Betapace daily, but is too nauseated to take any of her p.o. medications this morning. She continues to have some vomiting. She has had a CBC, CMP, magnesium, and troponins ordered. She was given a 250 mL bolus of normal saline. Her heart rate decreased to the low to mid 130s with the IV Lopressor. Her blood pressure has remained normal, if not slightly elevated. She was also given an inch of nitroglycerin paste. She denies any specific chest pain, but she has been without anticoagulation for a couple of days in anticipation and in response to her having had a back surgery yesterday. Discussed with Erlin Chance with the Neurosurgery Service, we will go ahead and give her a prophylactic dose of Lovenox and we will go ahead and transfer her down to the ICU and also going to give her some IV steroids. Presently, blood pressure is in the 140s and heart rates around 140. She continued to have some vomiting, so I am giving an additional dose of Zofran. Total time on dealing with this critical care issue was 40 minutes. 2. Nausea, unclear etiology, but appears to be related to pain and pain medications. Again, she has p.r.n. antiemetics. We will give an additional dose slightly early now. 3. Pain. The patient has morphine ordered. Again, discuss with the Neurosurgery Service. The patient has had gabapentin in the past, which she had some side effects from. She also had Lyrica in the past, which she is unsure whether that was helpful or not. But, at this point, she is not really capable of taking much in the way of p.o.'s. 4. Sjogren disease with steroid dependency, giving her some Solu-Medrol doses today. She is not able to take her p.o. prednisone. Hopefully it will help with her pain some as well. 5. Hypothyroidism. Continue medications whenever she is capable of taking the p.o.'s. 6. Hyperlipidemia. Again, we will treat as tolerated. Job ID: [id number]
[2018-07-04 10:33] LABS: Potassium 2.8 mmol/L (3.5-5.1)
[2018-07-04] MEDS: methylPREDNISolone Sod Succ/PF 125 MG/2 ML VIAL IVP SCH ×2 (10:33→21:06)
[2018-07-04 10:51] LABS: Troponin I 0.052 ng/mL (< 0.028)
[2018-07-04] MEDS ORDERED: Potassium Chloride 40 MEQ in Sodium Chloride 0.9% 250 ML 250 ML IVPB SCH (12:00)
[2018-07-04] MEDS: Acetaminophen 1,000 MG in Premix Bag 1 BAG IVPB PRN (12:35)
[2018-07-04] MEDS: hydrALAZINE 20 MG/ML VIAL SLOW IVP PRN (12:42)
[2018-07-04] MEDS: Promethazine HCl 25 MG/ML VIAL IVPB PRN (12:45)
--- NOTE | 2018-07-04 12:59 | CON ---
DATE OF CONSULTATION: HISTORY OF PRESENT ILLNESS: The patient was transferred from the surgical floor down to the ICU because she was in fast SVT, heart rate 140, atrial fibrillation. She has known history of supraventricular tachyarrhythmias for long period of time. In fact, she sees Dr. Thomson in the office for chronic lung disease, chronic asthma. She underwent spinal surgery by Dr. Hairston. Arrived to the surgical floor where she has had significant nausea, vomiting, and sinus tachycardia. When she arrived to the ICU, she tells me that she was not having any difficulty breathing. The heart rate was 140, irregularly irregular. Surgery that was performed was T10-T11 disk surgery. [employer] Outcomes Liaison is , who has been seeing. PAST MEDICAL HISTORY: Extensive previous past medical history is well outlined. Pertinent for chronic asthma, SVT or EP in the past. History of hypertension, history of hypothyroidism. PAST SURGICAL HISTORY: Apparently, she has had surgery for diverticulitis, cholecystectomy, recent back surgery, Watchman procedure for the SVT. HOME MEDICINES: 1. Prednisone 15 a day. 2. Long-term hydralazine 100 three times a day. 3. Catapres 0.3 three times a day. 4. Synthroid 60 a day. 5. Betapace 80. 6. Crestor 10. 7. Omeprazole 20. 8. Lopressor 50 twice a day. 9. Imdur 30 twice a day. 10. Lasix 40 a day. 11. Folic acid. 12. Albuterol inhaler. 13. She was given Solu-Medrol 80 q.12 and IV beta bobbi and transferred to the ICU. REVIEW OF SYSTEMS: Ten-point negative. PHYSICAL EXAMINATION: VITAL SIGNS: Sats are 96%, pulse 140, blood pressure elevated at 180/100. GENERAL: She is cushingoid. CHEST: Decreased breath sounds. No wheezing. CARDIAC: SVT. ABDOMEN: Distended, but soft. EXTREMITIES: Trace edema. LABORATORY DATA: Chest x-ray has been ordered, [place] [address], H and H 11 and 35, platelet count is normal, had bandemia, 74 bands. Potassium 2.8. An x-ray stat which ordered was just done, which shows now a pacemaker, but no obvious infiltrate. IMPRESSION: 1. Supraventricular tachycardia. 2. Status post spinal surgery. 3. Chronic asthma. 4. Hypertension. 5. Hypothyroidism. PLAN: Control nausea with Zofran and Phenergan. Probably need to start IV Cardizem. Input from Cardiology. Pulmonary higgins, continue neb treatments as tolerated. She appears to be in no distress. We will notify Dr. Thomson, probably see the patient in the morning. This is a consultation note, 70 minutes, 50% direct patient care. Job ID: [id number]
[2018-07-04] MEDS ORDERED: Diltiazem HCl 125 MG, Admixture Fee 1 EACH in Sodium Chloride 0.9% 100 ML IVPB SCH (13:30)
--- NOTE | 2018-07-04 13:31 | RAD ---
FRONTAL RADIOGRAPH CHEST PORTABLE SEMIUPRIGHT: Date: 07-04-18 Comparison: 05-19-18 History: COPD. FINDINGS: Curvilinear metallic structure overlies the cardiac silhouette suggesting an occlusion device within the left atrial appendage. There is evidence of multilevel kyphoplasty change and the thoracolumbar j unction. Heart and mediastinal contours are stable. Stable dual-lead transvenous pacing device insert ed via left subclavian approach. No pneumothorax, pleural fluid, focal consolidation or alveolar nick a. IMPRESSION: Stable appearance of the chest as detailed above. POS: [facility]
[2018-07-04] MEDS: Morphine 2 MG/ML SYRINGE SLOW IVP PRN ×2 (14:36→17:19)
[2018-07-04 16:03] LABS: Troponin I 0.068 ng/mL (< 0.028)
[2018-07-04] MEDS: Nitroglycerin 2% Ointment 1 INCH/1 GM Packet TOP SCH (20:30)
[2018-07-04] MEDS: Diltiazem HCl 125 MG, Admixture Fee 1 EACH in Sodium Chloride 0.9% 100 ML IVPB SCH (21:31)
--- NOTE | 2018-07-05 00:09 | CON ---
DATE OF CONSULTATION: 07/04/2018 REASON FOR CONSULTATION: Tachycardia. HISTORY OF PRESENT ILLNESS: Ms. Carrera is a very pleasant 77-year-old white female, who comes to the hospital for a lumbar surgery. She underwent this procedure. She had a lot of pain last night and eventually was very hypertensive and tachycardic this morning. EKG showed possible SVT, so Cardiology has been consulted. On my evaluation, Ms. Carrera is low down in the 120s now, looks like 2:1 flutter. EKG looks like it was 2:1 flutter when she was in the 140s as well. PAST MEDICAL HISTORY: 1. History of atrial fibrillation in the past. 2. Sjogren syndrome. 3. Long-term steroid use secondary to stroke risk. 4. Multiple atrial fibrillation ablations in the past. 5. Status post Watchman device. 6. Status post pacemaker placement due to bradycardia. 7. Diastolic heart failure. 8. Hypertension. 9. Hyperlipidemia. 10. TIAs. 11. Diverticulitis with complications. 12. Back pain. 13. Irritable bowel syndrome. 14. Thyroidectomy. 15. Chronic anemia. 16. Bronchial asthma. 17. Seasonal allergies. 18. Pancreatitis in the past. 19. Gallbladder disease. PAST SURGICAL HISTORY: 1. Cholecystectomy. 2. Lumbar laminectomy. 3. Watchman device. 4. Pacemaker placement. 5. Thyroidectomy. 6. Vertebroplasty. FAMILY HISTORY: Noncontributory. SOCIAL HISTORY: No alcohol, tobacco, or drugs. OUTPATIENT MEDICATIONS: Include; 1. Clonidine 0.3 mg p.o. t.i.d. 2. Omeprazole 20 mg a day. 3. Hydralazine 100 mg p.o. t.i.d. 4. Ibuprofen. 5. Lasix 40 mg a day. 6. Aspirin 81 a day. 7. Bentyl. 8. Ventolin nebulizer. 9. Imodium. 10. Zestril 20 mg b.i.d. 11. Imdur 30 mg b.i.d. 12. Hydrocodone p.r.n. 13. Folic acid. 14. Sotalol 80 mg b.i.d. 15. Rosuvastatin 10 mg a day. 16. Multivitamin. 17. Lopressor. 18. Mesalamine. 19. Prednisone. 20. [place] Thyroid 60 mg a day. ALLERGIES: AMLODIPINE. REVIEW OF SYSTEMS: A 12-point review of systems was done and was found to be negative unless stated in the history of present illness. PHYSICAL EXAMINATION: VITAL SIGNS: Temperature 98.3, pulse 120, respiratory rate 15, saturating 96% on room air, blood pressure 188/89. GENERAL: Awake, alert, and oriented x3. No distress. HEENT: Normocephalic, atraumatic. NECK: Supple. LUNGS: Clear. CARDIOVASCULAR: S1, S2. No S3 or S4. There is a grade 2/6 systolic murmur in the left sternal border. ABDOMEN: Soft, positive bowel sounds. EXTREMITIES: No edema. SKIN: Warm and dry. LABORATORY DATA: Laboratory work was reviewed. CBC, coags and chemistries were reviewed. Potassium was 2.8. Troponin was 0.05, 0.06. EKG was reviewed, 2:1 flutter. ASSESSMENT: 1. Atrial flutter with 2:1 atrioventricular block. 2. Recent lumbar surgery. PLAN: 1. We will have her pacemaker interrogated to confirm this. 2. No anticoagulation as she already has a Watchman device, so she is at lower risk of stroke, on top of her having had recent lumbar surgery. 3. We will try to slow her down with some IV diltiazem. She is allergic to amlodipine, however, she has had diltiazem in the past without issues. 4. Further recommendations per tomorrow morning, her primary director online marketing. Job ID: [id number]
[2018-07-05] MEDS: Morphine 2 MG/ML SYRINGE SLOW IVP PRN (00:42)
[2018-07-05] MEDS ORDERED: Pantoprazole 40 MG VIAL IVP SCH (01:00)
[2018-07-05] MEDS: Diltiazem HCl 125 MG, Admixture Fee 1 EACH in Sodium Chloride 0.9% 100 ML IVPB SCH (01:21)
[2018-07-05] MEDS: hydrALAZINE 20 MG/ML VIAL SLOW IVP PRN (03:08)
[2018-07-05] MEDS: Thyroid 60 MG TAB PO SCH (04:50)
[2018-07-05] MEDS: Cyclobenzaprine 10 MG TAB PO PRN (04:50)
--- NOTE | 2018-07-05 07:43 | EKG ---
Test Reason : Blood Pressure : / mmHG Vent. Rate : 145 BPM Atrial Rate : 145 BPM P-R Int : 000 ms QRS Dur : 084 ms QT Int : 316 ms P-R-T Axes : 000 091 087 degrees QTc Int : 490 ms Supraventricular tachycardia Rightward axis Marked ST abnormality, possible inferior subendocardial injury Marked ST abnormality, possible anterolateral subendocardial injury Abnormal ECG When compared with ECG of 19-MAY-2018 16:44, Significant changes have occurred Confirmed by MER ROSE ([id number]) on 07/05/2018 7:43:15 AM Referred By: MAGNOLIA Confirmed By:MER ROSE
[2018-07-05 08:38] LABS: #Lymphocytes 1.8 thou/uL (1.20-3.40); #Monocytes 0.7 thou/uL (0.11-0.59); #Neutrophils 17.6 thou/uL (1.40-6.50); %Basophils 0.1 % (0.0-1.0); %Eosinophils 0.2 % (0.0-10.0); %Monocytes 3.2 % (0.0-10.0); %Neutrophils 87.5 % (42.0-75.0); Hemoglobin 9.9 g/dL (12.0-16.0); Mean Corpuscular HGB CONC 30.6 g/dL (32.0-36.0); Mean Corpuscular Hemoglobin 25.1 pg (27.0-31.0); Mean Corpuscular Volume 82.1 fL (78.0-98.0); Mean Platelet Volume 7.1 fL (7.4-10.4); Platelet Count 363 thou/uL (130-400); RBC Distribution Width 16.3 % (11.5-14.5); Red Blood Cell (RBC) Count 3.96 mill/uL (4.20-5.40); White Blood Cell (WBC) Count 20.2 thou/uL (4.8-10.8)
[2018-07-05 08:56] LABS: ALT (SGPT) 7 U/L (8-55); AST (SGOT) 18 U/L (5-34); Albumin 3.2 g/dL (3.4-4.8); Alkaline Phosphatase 57 U/L (40-150); Anion Gap 17 mmol/L (10-20); BUN (Urea Nitrogen) 16 mg/dL (9.8-20.1); Bilirubin, Total 0.4 mg/dL (0.2-1.2); Calc. Creatinine Clearance 67 mL/min (70-130); Calcium 9.4 mg/dL (7.8-10.44); Carbon Dioxide 20 mmol/L (23-31); Chloride 105 mmol/L (98-107); Estimated GFR-MDRD 81; Globulin 3.1 g/dL (2.4-3.5); Glucose 207 mg/dL (83-110); Potassium 3.6 mmol/L (3.5-5.1); Protein, Total 6.3 g/dL (6.0-8.3); Sodium 138 mmol/L (136-145)
[2018-07-05] MEDS: hydrALAZINE 25 MG TAB PO SCH ×3 (08:57→22:07)
[2018-07-05] MEDS: Multivitamin W/ Minerals 1 TAB PO SCH (08:58)
[2018-07-05] MEDS: predniSONE 5 MG TAB PO SCH (08:58)
[2018-07-05] MEDS: Senokot 8.6 MG TAB PO SCH ×2 (08:58→22:04)
[2018-07-05] MEDS: Metoprolol Tartrate 50 MG TAB PO SCH ×2 (08:59→22:09)
[2018-07-05] MEDS: Furosemide 40 MG TAB PO SCH (08:59)
[2018-07-05] MEDS: Folic Acid 1 MG TAB PO SCH (08:59)
[2018-07-05] MEDS: cloNIDine 0.3 MG TAB PO SCH ×3 (08:59→22:09)
[2018-07-05] MEDS: Sotalol HCl 80 MG TAB PO SCH ×2 (08:59→22:10)
[2018-07-05] MEDS: Lisinopril 20 MG TAB PO SCH ×2 (08:59→22:04)
[2018-07-05] MEDS: Enoxaparin Sodium 30 MG/0.3 ML SYRINGE SC SCH (09:00)
[2018-07-05] MEDS: Rosuvastatin 10 MG TAB PO SCH (09:00)
[2018-07-05] MEDS: Docusate 100 MG CAP PO SCH ×2 (09:00→22:03)
[2018-07-05] MEDS: Nitroglycerin 2% Ointment 1 INCH/1 GM Packet TOP SCH (09:00)
[2018-07-05] MEDS: Acetaminophen 1,000 MG in Premix Bag 1 BAG IVPB PRN (09:22)
[2018-07-05] MEDS: CEFAZOLIN 2 GM in Sodium Chloride 0.9% 100 ML IVPB SCH ×2 (09:23→16:39)
--- NOTE | 2018-07-05 09:47 | PDOC.CTH ---
Cardiology Progress Note - Subjective The pt seen and examined. No cardiac complaints. No overnight events. - Objective Vital Signs Temp Pulse BP 07/05/18 09:00 99 F 07/05/18 08:59 88 154/74 H 07/05/18 08:57 86 154/74 H 07/05/18 03:08 154/74 H 07/05/18 03:00 97.7 F 07/04/18 23:00 98.0 F Weight 140 lb 07/04/18 07/05/18 07/06/18 06:59 06:59 06:59 Intake Total 800 1723.9 Output Total 1100 100 500 Balance -300 1623.9 -500 - Physical Examination General/Neuro: alert & oriented x3 Neck: no JVD present Lungs: other: (diminished at bases) Heart: other: (irregular) Abdomen: soft Extremities: other: (No edema) - Telemetry Telemetry Rhythm: Afib - Labs Result Diagrams: 07/05/18 08:16 07/05/18 08:16 Troponin/CKMB Troponin I 0.068 ng/mL (< 0.028) H 07/04/18 15:33 - Assessment/Plan 1. 2:1 Aflutter/Afib - afib with well controlled HR with Diltiazem 15mg/h; On Sotalol 80mg BID which 1st dose was last night. Lovenox 30mg qd since she has Watchman's device; change Diltiazem IV to PO from today. 2. HNP (herniated nucleus pulposus with myelopathy), thoracic on 07/04/2018 3. HTN - stable for her. 4. Chronic diastolic HF (grade III with Echo in 05/2017) - stable with Lasix 40mg po qd, metoprolol and lisinopril 5. COPD - stable with RA 6. Hyperlipidemia - on Statin 7. Hypothyroidism - on medication 8. Sjogren's syndrome - on Prednisone 9. IBS - stable MAR reviewed Pt. seen and eval. by me. I agree with the A/P by the SUPERVISOR SPEECH. she is maintaining sinus rhythm at this time. Will need to discuss with neurology about Lovenox after her back surgery. We may need to hold this. Chest clear. No ozzy . RRR. Review of Systems - Review of Systems Constitutional: reports: weakness EENTM: reports: no symptoms reported Respiratory: reports: no symptoms reported Cardiac (ROS): reports: no symptoms reported ABD/GI: reports: no symptoms reported
[2018-07-05] MEDS ORDERED: Diltiazem HCl 125 MG, Admixture Fee 1 EACH in Sodium Chloride 0.9% 100 ML IVPB SCH (09:58)
--- NOTE | 2018-07-05 10:34 | PRG ---
DATE OF SERVICE: 07/05/2018 Ms. Carrera is postoperative day #2 from thoracic laminectomy and diskectomy with transpedicular approach along with left L3-L4, and left L5-S1 decompressions. She has had issues with left lower extremity, buttock and posterior thigh pain consistent with radiculitis but a nonfocal exam. This should certainly resolve with time as we achieved excellent decompression of her neural elements at the time of surgery. The biggest issue now is atrial flutter. She is in the ICU for this. She is on steroids at baseline and has significant osteoporosis. Obviously, the steroids will help with the radiculitis. She is sensitive to gabapentin. I think she simply needs time at this point. Job ID: [id number]
[2018-07-05] MEDS: methylPREDNISolone Sod Succ/PF 125 MG/2 ML VIAL IVP SCH (11:13)
[2018-07-05] MEDS: HYDROcodone/Acetaminophen 10/325 mg Tablet PO PRN ×2 (11:15→17:40)
--- NOTE | 2018-07-05 14:01 | PDOC.PN ---
- Subjective Encounter Start Date: 07/05/18 Encounter Start Time: 10:50 Doing better today. Pain is improving. Still has the pain in the left LE. Back still feels sore. - Objective Resuscitation Status - Order Detail: 07/01/18 09:58 Resuscitation Status Routine Resuscitation Status: PRTL: Chem-Intubation Discussed with: Patient Additional comments: Cardioversion also ok. No compressions. Vital Signs & Weight: Vital Signs (12 hours) Temp Pulse Pulse Pulse BP BP BP 07/05/18 12:00 98.8 F 07/05/18 09:44 75 71 140/65 96/79 07/05/18 09:43 75 95 140/65 96/79 07/05/18 09:00 99 F 07/05/18 08:59 88 154/74 H 07/05/18 08:57 86 154/74 H 07/05/18 08:00 07/05/18 03:08 154/74 H 07/05/18 03:00 97.7 F BP Pulse Ox Pulse Ox Pulse Ox 07/05/18 12:00 07/05/18 09:44 125/59 L 97 95 07/05/18 09:43 125/59 L 97 07/05/18 09:00 07/05/18 08:59 07/05/18 08:57 07/05/18 08:00 96 07/05/18 03:08 07/05/18 03:00 Weight Weight 140 lb Most Recent Monitor Data Heart Rate from ECG 65 NIBP 124/59 NIBP BP-Mean 80 Respiration from ECG 20 SpO2 95 I&O: 07/04/18 07/05/18 07/06/18 06:59 06:59 06:59 Intake Total 800 1723.9 720 Output Total 8263 924 0938 Balance -300 1623.9 -530 Result Diagrams: 07/05/18 08:16 07/05/18 08:16 Phys Exam - Physical Examination Constitutional: NAD Respiratory: no wheezing, no rales, no rhonchi, clear to auscultation bilateral Cardiovascular: no significant murmur, irregular Gastrointestinal: soft, non-tender, no distention, positive bowel sounds Musculoskeletal: no edema, pulses present Psychiatric: normal affect, A&O x 3 Dx/Plan (1) HNP (herniated nucleus pulposus with myelopathy), thoracic Code(s): M51.04 - INTERVERTEBRAL DISC DISORDERS W MYELOPATHY, THORACIC REGION Status: Acute (2) Radiculopathy due to lumbar intervertebral disc disorder Code(s): M51.16 - INTERVERTEBRAL DISC DISORDERS W RADICULOPATHY, LUMBAR REGION Status: Acute (3) Hyperlipidemia Code(s): E78.5 - HYPERLIPIDEMIA, UNSPECIFIED Status: Chronic Qualifiers: Hyperlipidemia type: unspecified Qualified Code(s): E78.5 - Hyperlipidemia , unspecified (4) Hypothyroidism Code(s): E03.9 - HYPOTHYROIDISM, UNSPECIFIED Status: Chronic Qualifiers: Hypothyroidism type: acquired Qualified Code(s): E03.9 - Hypothyroidism, unspecified (5) Sjogren's syndrome Code(s): M35.00 - SICCA SYNDROME, UNSPECIFIED Status: Chronic Qualifiers: Sjogren's organ involvement: unspecified organ involvement Qualified Code(s ): M35.00 - Sicca syndrome, unspecified (6) Atrial fibrillation with RVR Code(s): I48.91 - UNSPECIFIED ATRIAL FIBRILLATION Status: Resolved Comment: Converted to SR, Cardizem gtt, Cardizem 180mg daily, Digoxin IV x 1 dose, Metoprolol 25mg BID - Plan * Pain improved. Continue pain meds. Neurosurg asking Dr. Nieto to see her as well. * Reduce steroids to usual home dose. * Off cardizem gtt and on po Cardizem now. * Continue therapy as tolerated.
--- NOTE | 2018-07-05 20:18 | PRG ---
DATE OF SERVICE: 07/05/2018 SUBJECTIVE: Arabella Carrera is in no distress. OBJECTIVE: VITAL SIGNS: Blood pressure 140/59, heart rate 71, respiratory rate 18. LUNGS: Clear. HEART: Regular rhythm. S1 and S2 normal. ABDOMEN: Soft and nontender. EXTREMITIES: No clubbing, cyanosis, or edema. LABORATORY DATA: White count 20.2, hemoglobin 9.9, platelets 363. Electrolytes were unremarkable. Glucose 207. IMPRESSION: 1. Status post spine surgery with supraventricular tachycardia/atrial fibrillation, transferred to the ICU. She is clinically stable. 2. Chronic persistent asthma, clinically stable. 3. Extreme deconditioning. 4. 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 5. History of diverticulitis. 6. History of cholecystectomy. 7. History of Watchman procedure in the past. She got down to 4 mg of prednisone a day and says she had to go back up because she had adrenal crisis. At this point in time, she appears to be stable. Follow with the other physicians caring for. Job ID: [id number]
[2018-07-05] MEDS: Pregabalin 25 MG CAP PO SCH (22:05)
[2018-07-06] MEDS: HYDROcodone/Acetaminophen 10/325 mg Tablet PO PRN ×3 (00:17→22:43)
[2018-07-06] MEDS: CEFAZOLIN 2 GM in Premix Bag 1 BAG IVPB SCH ×3 (00:19→16:40)
[2018-07-06] MEDS: Pregabalin 25 MG CAP PO SCH ×3 (06:02→22:12)
[2018-07-06] MEDS: Thyroid 60 MG TAB PO SCH (06:04)
[2018-07-06] MEDS: predniSONE 5 MG TAB PO SCH (07:44)
[2018-07-06] MEDS: Rosuvastatin 10 MG TAB PO SCH (08:12)
[2018-07-06] MEDS: Multivitamin W/ Minerals 1 TAB PO SCH (08:12)
[2018-07-06] MEDS: Metoprolol Tartrate 50 MG TAB PO SCH ×2 (08:12→22:11)
[2018-07-06] MEDS: Enoxaparin Sodium 30 MG/0.3 ML SYRINGE SC SCH (08:12)
[2018-07-06] MEDS: Folic Acid 1 MG TAB PO SCH (08:13)
[2018-07-06] MEDS: cloNIDine 0.3 MG TAB PO SCH ×3 (08:13→22:12)
[2018-07-06] MEDS: Furosemide 40 MG TAB PO SCH (08:13)
[2018-07-06] MEDS: Senokot 8.6 MG TAB PO SCH ×2 (08:13→22:09)
[2018-07-06] MEDS: hydrALAZINE 25 MG TAB PO SCH ×3 (08:14→22:10)
[2018-07-06] MEDS: Lisinopril 20 MG TAB PO SCH ×2 (08:14→22:09)
[2018-07-06] MEDS: Docusate 100 MG CAP PO SCH ×2 (08:14→22:11)
[2018-07-06] MEDS: Sotalol HCl 80 MG TAB PO SCH ×2 (08:34→22:11)
--- NOTE | 2018-07-06 10:23 | PRG ---
DATE OF SERVICE: 07/06/2018 SUBJECTIVE: Ms. Carrera is now postoperative day 3 from T10-T11 laminectomy and left T11 pediculectomy and transversectomy for diskectomy along with revision left L3-L4 and left L5-S1 foraminotomies. She has had left L5 and S1 radicular pain with certain movements and that has continued to be an issue, although Dr. Nieto is assisted us in regard to adding Lyrica for the patient. She is on longstanding steroids and obviously this helps to a degree with the radiculitis. Otherwise, she has good strength throughout her lower extremity myotomes. The reason she is still in the ICU is because of atrial flutter. Postoperatively, it appears that she is on transcutaneous pacer this morning, and other than occasional left leg pain, she feels as if she is improving. I would defer to Dr. Heredia, who is following the patient as to when she can be moved from the ICU. We will continue to work towards aggressive or effective pain control, although the patient has sensitivities to multiple pain medications and Dr. Nieto is aware of the patient's hospitalization as well. We have also placed consultations for inpatient rehab. Job ID: [id number]
--- NOTE | 2018-07-06 11:33 | PRG ---
DATE OF SERVICE: 07/06/2018 SUBJECTIVE: Arabella Carrera has no other complaints today. She appears to be in sinus rhythm. OBJECTIVE: VITAL SIGNS: Blood pressure is 149/61, heart rate is 70, and respiratory rate is 18. LUNGS: Clear. HEART: Regular rhythm. S1 and S2 are normal. ABDOMEN: Soft and nontender. EXTREMITIES: Without edema. IMPRESSION: 1. Status post T10-T11 laminectomy, T11 pediculectomy and transversectomy as well as a diskectomy. She also had a left L3-L4 and left L5-S1 foraminotomies. 2. Status post pacemaker. She is intermittently pacing when I rounded on her. 3. Extreme deconditioning. 4. Chronic persistent asthma. 5. History of steroid dependence with a history of adrenal crisis in the past. 6. History of Watchman procedure. 7. History of diverticulitis. 8. Obesity. PLAN: Continue supportive care. We will increase activity per Neurosurgery. Chronic persistent asthma, stable. She is on 15 mg a day of prednisone. Probably would consider switching her to 10 mg in the morning and 5 mg in the afternoon for now, although this may be adequate once a day. She is on [place] Thyroid. Synthroid is a better thyroid preparation, it might be a good time to switch her to a 0.1 of Synthroid. Of note, I have no suggestions. Primary issue is with regard to her atrial rhythm disturbance. Job ID: [id number]
--- NOTE | 2018-07-06 13:44 | PDOC.CTH ---
Cardiology Progress Note - Subjective The pt seen and examined. No overnight events. No cardiac complaints. - Objective Vital Signs Temp Pulse Pulse BP BP Pulse Ox 07/06/18 12:00 98.2 F 07/06/18 09:35 85 124/64 07/06/18 08:34 73 158/35 H 07/06/18 08:14 73 158/35 H 07/06/18 08:13 142/74 H 07/06/18 08:00 98.5 F 95 07/06/18 04:00 98.5 F Weight 140 lb 07/05/18 07/06/18 07/07/18 06:59 06:59 06:59 Intake Total 1723.9 2530 370 Output Total 100 2250 Balance 1623.9 280 370 - Physical Examination General/Neuro: alert & oriented x3 Neck: no JVD present Lungs: other: (diminished at bases) Heart: RRR Abdomen: soft Extremities: other: (No edema) - Telemetry Telemetry Rhythm: SR - Labs Result Diagrams: 07/05/18 08:16 07/05/18 08:16 Troponin/CKMB Troponin I 0.068 ng/mL (< 0.028) H 07/04/18 15:33 - Assessment/Plan 1. 2:1 Aflutter/Afib - in SR with well controlled HR with Sotalol 80mg BID; Diltiazem is off; Lovenox 30mg qd since she has Watchman's device 2. HNP (herniated nucleus pulposus with myelopathy), thoracic on 07/04/2018 3. HTN - stable 4. Chronic diastolic HF (grade III with Echo in 05/2017) - stable with Lasix 40mg po qd, metoprolol and lisinopril 5. COPD - stable with RA 6. Hyperlipidemia - on Statin 7. Hypothyroidism - on medication 8. Sjogren's syndrome - on Prednisone 9. IBS - stable MAR reviewed Pt. seen and eval. by me. I agree with the A/P by the [employer]. She is feeling better today and the BP is reasonably well controlled. She remains in NSR. Review of Systems - Review of Systems Constitutional: reports: no symptoms reported EENTM: reports: no symptoms reported Respiratory: reports: no symptoms reported Cardiac (ROS): reports: no symptoms reported ABD/GI: reports: no symptoms reported : reports: no symptoms reported
[2018-07-06] MEDS: Cyclobenzaprine 10 MG TAB PO PRN (13:50)
--- NOTE | 2018-07-06 19:14 | CON ---
DATE OF CONSULTATION: HISTORY OF PRESENT ILLNESS: Ms. Carrera is a 77-year-old female, well known to the clinic with chronic pain from osteoporotic compression fractures, status post indicated kyphoplasties, and most recently now she is postoperative day #1 for thoracic laminectomy from a large disk herniation with myelopathic findings and a left L3-L4 and L5-S1 decompressions. We were consulted for persistent left buttock and radicular pain. Pain would approximate S1 dermatome. The symptoms appeared to be neuropathic. She has had numerous analgesics in the past and is relatively intolerant to opiates, most notably severe GI side effects. She has trialed gabapentin in the past and had adverse reactions to gabapentin most notably excessive sedation and ataxia. She trialed Lyrica in the past with some efficacy but it was discontinued due to non-efficacy. Note that these were medications were used for different indications, not her current chief complaint of the left leg radicular pain. She actually did fairly well postoperatively from a spine standpoint, other than the residual left neuropathic radicular pain. She is currently in the ICU for atrial flutter in the need to control her rate and dysrhythmia. PAST MEDICAL HISTORY: Significant for osteoporosis, multiple kyphoplasties, she has had thyroidectomy and is on chronic thyroid replacement. She has had TIAs. Hypertension, prior pacemaker placement long-term, use of steroids, and atrial fibrillation. She was also diagnosed with Sjogren syndrome and has a history of adrenal crisis in the past. She is steroid dependent. PAST SURGICAL HISTORY: Cholecystectomy, lumbar laminectomy, pacemaker placement, thyroidectomy, and prior kyphoplasties. REVIEW OF SYSTEMS: Negative with the exception of what is mentioned in the history of present illness. PHYSICAL EXAMINATION: GENERAL: The patient is alert, oriented, and pleasant. She is resting comfortably. CHEST: Clear. HEART: Rhythm is regular. ABDOMEN: Soft and nontender. BACK: Incisions were not evaluated as dressing was not removed. NEUROLOGIC: She is intact in her lower extremities without any focal deficits or myelopathic findings. Straight leg raise test appears to be negative. Unable to evaluate adequately her SI joints, but they were nontender to palpate. IMPRESSION: Status post thoracic decompression for large disk herniation with myelopathic findings, also with lumbar decompression and now with some residual left radicular pain would approximate S1 dermatome. Recommendation Lyrica trial 25 mg t.i.d. It is likely will be an inadequate dose but given her prior sensitivity to medications, I feel it is important to start at a low dose and titrate to efficacy. She may take hydrocodone, but she will only take it very judiciously due to prior GI side effects. Job ID: [id number]
--- NOTE | 2018-07-06 22:58 | PDOC.PN ---
- Subjective Encounter Start Date: 07/06/18 Encounter Start Time: 10:50 Doing well. Pain is improving. Able to move leg better. - Objective Resuscitation Status - Order Detail: 07/01/18 09:58 Resuscitation Status Routine Resuscitation Status: PRTL: Chem-Intubation Discussed with: Patient Additional comments: Cardioversion also ok. No compressions. Vital Signs & Weight: Vital Signs (12 hours) Temp Pulse Resp BP BP Pulse Ox 07/06/18 22:12 138/73 07/06/18 22:11 77 138/73 07/06/18 22:10 77 138/73 07/06/18 22:09 138/73 07/06/18 20:21 99.1 F 77 18 138/73 96 07/06/18 19:00 98.8 F 07/06/18 16:00 98.2 F 07/06/18 14:25 76 154/74 H 07/06/18 12:00 98.2 F Weight Weight 140 lb Most Recent Monitor Data Heart Rate from ECG 71 NIBP 139/49 NIBP BP-Mean 79 Respiration from ECG 19 SpO2 92 I&O: 07/05/18 07/06/18 07/07/18 06:59 06:59 06:59 Intake Total 1723.9 2530 1284 Output Total 100 2250 500 Balance 1623.9 280 784 Result Diagrams: 07/05/18 08:16 07/05/18 08:16 Phys Exam - Physical Examination Constitutional: NAD Respiratory: no wheezing, no rales, no rhonchi Cardiovascular: RRR, no significant murmur Gastrointestinal: soft, non-tender, no distention, positive bowel sounds Musculoskeletal: no edema Neurological: non-focal Still has some decreased ROM in LLE due to pain. Improved. Psychiatric: normal affect Dx/Plan (1) HNP (herniated nucleus pulposus with myelopathy), thoracic Code(s): M51.04 - INTERVERTEBRAL DISC DISORDERS W MYELOPATHY, THORACIC REGION Status: Acute (2) Radiculopathy due to lumbar intervertebral disc disorder Code(s): M51.16 - INTERVERTEBRAL DISC DISORDERS W RADICULOPATHY, LUMBAR REGION Status: Acute (3) Hyperlipidemia Code(s): E78.5 - HYPERLIPIDEMIA, UNSPECIFIED Status: Chronic Qualifiers: Hyperlipidemia type: unspecified Qualified Code(s): E78.5 - Hyperlipidemia , unspecified (4) Hypothyroidism Code(s): E03.9 - HYPOTHYROIDISM, UNSPECIFIED Status: Chronic Qualifiers: Hypothyroidism type: acquired Qualified Code(s): E03.9 - Hypothyroidism, unspecified (5) Sjogren's syndrome Code(s): M35.00 - SICCA SYNDROME, UNSPECIFIED Status: Chronic Qualifiers: Sjogren's organ involvement: unspecified organ involvement Qualified Code(s ): M35.00 - Sicca syndrome, unspecified (6) Atrial fibrillation with RVR Code(s): I48.91 - UNSPECIFIED ATRIAL FIBRILLATION Status: Resolved Comment: Converted to SR, Cardizem gtt, Cardizem 180mg daily, Digoxin IV x 1 dose, Metoprolol 25mg BID - Plan * Dr. Nieto added Lyrica. * Continue PT. * Off Cardizem gtt and on orals. * Rate improved and appears to be in NSR now. * Has watchman. * Will move to floor if ok with other members of the team.
[2018-07-07] MEDS: CEFAZOLIN 2 GM in Premix Bag 1 BAG IVPB SCH ×3 (00:15→16:48)
[2018-07-07] MEDS: Thyroid 60 MG TAB PO SCH (05:37)
[2018-07-07] MEDS: Pregabalin 25 MG CAP PO SCH ×3 (05:37→21:12)
[2018-07-07] MEDS: Docusate 100 MG CAP PO SCH ×2 (09:42→21:16)
[2018-07-07] MEDS: Sotalol HCl 80 MG TAB PO SCH ×2 (09:43→21:15)
[2018-07-07] MEDS: Metoprolol Tartrate 50 MG TAB PO SCH ×2 (09:44→21:15)
[2018-07-07] MEDS: Lisinopril 20 MG TAB PO SCH ×2 (09:44→21:15)
[2018-07-07] MEDS: predniSONE 5 MG TAB PO SCH (09:45)
[2018-07-07] MEDS: hydrALAZINE 25 MG TAB PO SCH ×4 (09:45→21:13)
[2018-07-07] MEDS: Enoxaparin Sodium 30 MG/0.3 ML SYRINGE SC SCH (09:46)
[2018-07-07] MEDS: cloNIDine 0.3 MG TAB PO SCH ×3 (09:46→21:13)
[2018-07-07] MEDS: Rosuvastatin 10 MG TAB PO SCH (09:46)
[2018-07-07] MEDS: Multivitamin W/ Minerals 1 TAB PO SCH (09:46)
[2018-07-07] MEDS: Furosemide 40 MG TAB PO SCH (09:46)
[2018-07-07] MEDS: Senokot 8.6 MG TAB PO SCH ×2 (09:47→21:16)
[2018-07-07] MEDS: Folic Acid 1 MG TAB PO SCH (09:47)
--- NOTE | 2018-07-07 11:35 | PRG ---
DATE OF SERVICE: 07/07/2018 SUBJECTIVE: From respiratory standpoint, the patient is doing well and has no complaints. OBJECTIVE: VITAL SIGNS: On exam, temperature is 98.2, pulse 66, blood pressure 152/70, and O2 saturation 95% on room air. HEENT: Unremarkable. NECK: No JVD. LUNGS: Clear. CARDIAC: S1 and S2, regular. ABDOMEN: Soft. EXTREMITIES: No edema. ASSESSMENT: 1. Status post laminectomy on multiple levels. 2. Status post pacemaker placement. 3. Chronic persistent asthma, which is stable. PLAN: She is continuing breathing treatments as needed. Prednisone is currently 15 mg per day. No other needs identified at this time. Job ID: [id number]
--- NOTE | 2018-07-07 13:49 | PRG ---
DATE OF SERVICE: 07/07/2018 I have seen Ms. Whitney. Her pain is well controlled, lying in bed. She had a good night last night and slept quite well after hydrocodone and 25 mg of Lyrica per the direction of Dr. Nieto. I expect we will continue with the current dose of Lyrica through the day today and consider increasing it as needed depending on her progress. Rehab consultation has been placed. We will continue with the current plan through the weekend. Job ID: [id number]
[2018-07-07] MEDS: Cyclobenzaprine 10 MG TAB PO PRN (14:34)
[2018-07-07] MEDS: HYDROcodone/Acetaminophen 10/325 mg Tablet PO PRN ×2 (14:35→21:23)
[2018-07-07] MEDS ORDERED: Eucerin (Mineral Oil/Petrolatum,White) 30 gm Jar TOP PRN (15:15)
[2018-07-07] MEDS ORDERED: Milk Of Magnesia 30 ML UDCUP PO PRN (15:15)
--- NOTE | 2018-07-07 15:43 | PRG ---
DATE OF SERVICE: 07/07/2018 SUBJECTIVE: The patient denies any new complaints at this time. The pain is better controlled after Lyrica. She denies any fevers, chills, nausea, or vomiting. REVIEW OF SYSTEMS: The patient is constipated. Denies any chest pain, palpitations, or focal neurologic deficits. OBJECTIVE: VITAL SIGNS: Temperature 98.5, pulse 77, blood pressure 159/68, respiration of 18, O2 saturation 95% on room air. GENERAL: A 77-year-old female in no apparent distress. Pain better controlled. LUNGS: Clear to auscultation bilaterally. HEART: S1 and S2 present. Regular. No heaves or pulsation. ABDOMEN: Soft. Bowel sounds present. EXTREMITIES: No edema or calf tenderness. IMAGING DATA: MRI spine from 02 July showed large T10-T11 left paracentral disk extrusion with new developed L5-S1 synovial cyst compressing the left S1 nerve root. IMPRESSION: 1. Lumbar radiculopathy, status post laminectomy. 2. Atrial flutter/atrial fibrillation with rapid ventricular response, on sotalol. The patient also has a Watchman device. Cardizem drip has been discontinued. 3. Hypertension. 4. Chronic diastolic heart failure. 5. Chronic obstructive pulmonary disease. 6. Sjogren syndrome, on chronic steroids. 7. Hypothyroidism. 8. Constipation. 9. Irritable bowel syndrome. 10. Hyperlipidemia. 11. Diverticulosis. 12. Hypokalemia. 13. Elevated troponin secondary to demand ischemia. 14. Hyponatremia. 15. Chronic anemia. 16. Leukocytosis, unlikely to be infectious. PLAN: Continue physical therapy, occupational therapy. Continue current medications including Lyrica, clonidine, Lasix, Imdur, lisinopril, metoprolol, and sotalol. Continue Lovenox for DVT prophylaxis. Add milk of magnesia and MiraLAX for constipation. A.m. labs. Plan was discussed with the patient. She stated understanding. Job ID: [id number]
[2018-07-07] MEDS: Senokot S 8.6-50 MG TAB PO SCH (21:16)
[2018-07-08] MEDS: CEFAZOLIN 2 GM in Premix Bag 1 BAG IVPB SCH ×3 (00:06→16:07)
[2018-07-08 05:58] LABS: #Eosinphils 0.1 thou/uL (0.0-0.7); #Lymphocytes 2.1 thou/uL (1.20-3.40); #Monocytes 0.6 thou/uL (0.11-0.59); #Neutrophils 6.5 thou/uL (1.40-6.50); %Basophils 0.4 % (0.0-1.0); %Lymphocytes 22.8 % (21.0-51.0); %Monocytes 6.5 % (0.0-10.0); %Neutrophils 69.4 % (42.0-75.0); Hemoglobin 8.3 g/dL (12.0-16.0); Mean Corpuscular HGB CONC 30.4 g/dL (32.0-36.0); Mean Corpuscular Hemoglobin 25.4 pg (27.0-31.0); Mean Corpuscular Volume 83.6 fL (78.0-98.0); Mean Platelet Volume 7.2 fL (7.4-10.4); Platelet Count 263 thou/uL (130-400); Red Blood Cell (RBC) Count 3.26 mill/uL (4.20-5.40); White Blood Cell (WBC) Count 9.3 thou/uL (4.8-10.8)
[2018-07-08] MEDS: Pregabalin 25 MG CAP PO SCH ×3 (06:09→20:55)
[2018-07-08] MEDS: Thyroid 60 MG TAB PO SCH (06:09)
[2018-07-08] MEDS: hydrALAZINE 20 MG/ML VIAL SLOW IVP PRN ×2 (06:16→16:07)
[2018-07-08 06:19] LABS: ALT (SGPT) Less than 7 U/L (8-55); AST (SGOT) 11 U/L (5-34); Albumin 2.8 g/dL (3.4-4.8); Alkaline Phosphatase 47 U/L (40-150); Anion Gap 11 mmol/L (10-20); BUN (Urea Nitrogen) 17 mg/dL (9.8-20.1); Bilirubin, Total 0.2 mg/dL (0.2-1.2); Calc. Creatinine Clearance 75 mL/min (70-130); Calcium 8.3 mg/dL (7.8-10.44); Carbon Dioxide 30 mmol/L (23-31); Chloride 97 mmol/L (98-107); Estimated GFR-MDRD Greater than 90; Globulin 2.6 g/dL (2.4-3.5); Glucose 180 mg/dL (83-110); Magnesium 1.5 mg/dL (1.6-2.6); Protein, Total 5.4 g/dL (6.0-8.3); Sodium 135 mmol/L (136-145)
[2018-07-08 06:21] LABS: Phosphorus 1.9 mg/dL (2.3-4.7); Potassium 2.7 mmol/L (3.5-5.1)
[2018-07-08] MEDS ORDERED: Magnesium Sulfate 2 GM in Sodium Chloride 0.9% 100 ML IVPB SCH (07:45)
[2018-07-08] MEDS: Furosemide 40 MG TAB PO SCH (07:59)
[2018-07-08] MEDS ORDERED: Magnesium 2 GM/50 ML 2 GM in Premix Bag 1 BAG IVPB SCH (08:00)
[2018-07-08] MEDS: Potassium Chloride 20 MEQ TAB PO SCH ×2 (08:35→11:53)
[2018-07-08] MEDS: predniSONE 5 MG TAB PO SCH (08:35)
[2018-07-08] MEDS: Rosuvastatin 10 MG TAB PO SCH (08:45)
[2018-07-08] MEDS: Saccharomyces boulardii 250 MG CAP PO SCH (08:45)
[2018-07-08] MEDS: hydrALAZINE 25 MG TAB PO SCH ×3 (08:45→20:52)
[2018-07-08] MEDS: Senokot 8.6 MG TAB PO SCH (08:45)
[2018-07-08] MEDS: Lisinopril 20 MG TAB PO SCH ×2 (08:45→20:54)
[2018-07-08] MEDS: Multivitamin W/ Minerals 1 TAB PO SCH (08:45)
[2018-07-08] MEDS: Metoprolol Tartrate 50 MG TAB PO SCH ×2 (08:45→20:54)
[2018-07-08] MEDS: Polyethylene Glycol 3350 17 GM Packet PO SCH (08:46)
[2018-07-08] MEDS: Docusate 100 MG CAP PO SCH ×2 (08:46→20:55)
[2018-07-08] MEDS: Sotalol HCl 80 MG TAB PO SCH ×2 (08:46→20:50)
[2018-07-08] MEDS: Folic Acid 1 MG TAB PO SCH (08:46)
[2018-07-08] MEDS: Enoxaparin Sodium 30 MG/0.3 ML SYRINGE SC SCH (08:46)
[2018-07-08] MEDS: cloNIDine 0.3 MG TAB PO SCH ×3 (08:46→20:52)
[2018-07-08] MEDS: Citrucel 500 MG TAB PO SCH (08:46)
[2018-07-08] MEDS: Senokot S 8.6-50 MG TAB PO SCH ×2 (08:47→20:55)
[2018-07-08] MEDS: Cyclobenzaprine 10 MG TAB PO PRN (08:47)
[2018-07-08] MEDS: K-Phos Neutral 250 MG TAB PO SCH ×3 (09:22→16:07)
--- NOTE | 2018-07-08 11:30 | PRG ---
DATE OF SERVICE: 07/08/2018 SUBJECTIVE: The patient is doing well and no acute complaints. OBJECTIVE: VITAL SIGNS: Temperature is 98.2, blood pressure 164/60, pulse 70, respirations 18. HEENT: Unremarkable. NECK: No JVD. CHEST: Clear to auscultation. CARDIAC: S1 and S2, regular. ABDOMEN: Soft. EXTREMITIES: No edema. LABORATORY DATA: White count 9.3, hematocrit 27.2, and platelet count 263. Sodium 135, potassium 2.7, chloride 97, CO2 of 30, BUN 17, creatinine 0.6, glucose 180. ASSESSMENT: 1. Status post laminectomy in multiple levels. 2. Status post pacemaker placement. 3. Chronic persistent asthma, which is stable. 4. Hypokalemia. PLAN: The patient was given potassium this morning by the primary team. She is on steroids mainly for issues dealing with her Sjogren's. Respiratory status is currently stable. Job ID: [id number]
[2018-07-08] MEDS: HYDROcodone/Acetaminophen 10/325 mg Tablet PO PRN (14:27)
[2018-07-08] MEDS ORDERED: Bisacodyl 10 MG SUPP PR PRN (14:27)
--- NOTE | 2018-07-08 19:48 | PDOC.PN ---
- Subjective Encounter Start Date: 07/08/18 Encounter Start Time: 13:00 Patient seen and examined for multiple medical issues. Pain controlled. No fever /chills. No new complaints. No overnight events - Objective Resuscitation Status - Order Detail: 07/01/18 09:58 Resuscitation Status Routine Resuscitation Status: PRTL: Chem-Intubation Discussed with: Patient Additional comments: Cardioversion also ok. No compressions. MAR Reviewed: Yes Vital Signs & Weight: Vital Signs (12 hours) Temp Pulse Resp BP BP BP Pulse Ox 07/08/18 16:53 78 162/74 H 07/08/18 16:07 78 172/73 H 07/08/18 15:35 98.8 F 78 18 172/76 H 96 07/08/18 14:25 72 171/73 H 07/08/18 11:36 98.4 F 72 18 148/71 H 96 07/08/18 08:46 70 164/60 H 07/08/18 08:45 70 164/60 H Weight Weight 140 lb Most Recent Monitor Data Heart Rate from ECG 71 NIBP 139/49 NIBP BP-Mean 79 Respiration from ECG 19 SpO2 92 I&O: 07/07/18 07/08/18 07/09/18 06:59 06:59 06:59 Intake Total 6240 630 6558 Output Total 1100 Balance 542 742 5716 Result Diagrams: 07/08/18 05:42 07/08/18 05:42 Phys Exam - Physical Examination Constitutional: NAD Respiratory: no wheezing, no rhonchi Cardiovascular: RRR, no rub Gastrointestinal: soft, positive bowel sounds Musculoskeletal: no edema Neurological: moves all 4 limbs Dx/Plan - Plan DVT proph w/SCDs IMPRESSION: 1. Lumbar radiculopathy, status post laminectomy. 2. Atrial flutter/atrial fibrillation with rapid ventricular response, on sotalol. The patient also has a Watchman device. Cardizem drip has been discontinued. 3. Hypertension. 4. Chronic diastolic heart failure. 5. Chronic obstructive pulmonary disease. 6. Sjogren syndrome, on chronic steroids. 7. Hypothyroidism. 8. Constipation. 9. Irritable bowel syndrome. 10. Hyperlipidemia. 11. Diverticulosis. 12. Hypokalemia/hypomagnesemia/hypophosphatemia 13. Elevated troponin secondary to demand ischemia. 14. Hyponatremia. 15. Chronic anemia. 16. Leukocytosis, unlikely to be infectious. PLAN: Cont PT/OT Cont current meds as below Replace electrolytes Await placement AM labs Laboratory Tests 07/08/18 05:42 Phosphorus 1.9 L Magnesium 1.5 L Review of Systems - Review of Systems Respiratory: negative: Cough, Dry, Shortness of Breath, Hemoptysis, SOB with Excertion, Pleuritic Pain, Sputum, Wheezing Cardiovascular: negative: chest pain, palpitations, orthopnea, paroxysmal nocturnal dyspnea, edema, light headedness, other - Medications/Allergies Allergies/Adverse Reactions: Allergies Allergy/AdvReac Type Severity Reaction Status Date / Time adhesive tape Allergy Verified 07/07/18 01:18 amlodipine Allergy "swelled Verified 10/20/17 14:12 in feet and legs" Medications: Current Medications Hydrocodone Bitart/Acetaminophen ([place] 10/325) 1 tab PO Q6H PRN PRN Reason: Pain 1-5 Last Admin: 07/07/18 21:23 Dose: 1 tab Hydrocodone Bitart/Acetaminophen ([place] 10/325) 2 tab PO Q6H PRN PRN Reason: Pain 6-10 Last Admin: 07/08/18 14:27 Dose: 2 tab Albuterol Sulfate (Ventolin) 2.5 mg NEB [id number] PRN PRN Reason: Wheezing Bisacodyl (Dulcolax) 10 mg [place] DAILYPRN PRN PRN Reason: Constipation Last Admin: 07/08/18 18:03 Dose: 10 mg Clonidine (Catapres) 0.3 mg PO TID [facility] Last Admin: 07/08/18 14:25 Dose: 0.3 mg Cyclobenzaprine HCl (Flexeril) 5 mg PO Q8H PRN PRN Reason: Muscle Spasm/PAIN Last Admin: 07/08/18 08:47 Dose: 5 mg Dicyclomine HCl (Bentyl) 10 mg PO QIDPRN PRN PRN Reason: GI Cramping Docusate Sodium (Colace) 100 mg PO BID [facility] Last Admin: 07/08/18 08:46 Dose: 100 mg Enoxaparin Sodium (Lovenox) 30 mg SC 0900 [facility] Last Admin: 07/08/18 08:46 Dose: 30 mg Folic Acid (Folvite) 1 mg PO DAILY [facility] Last Admin: 07/08/18 08:46 Dose: 1 mg Furosemide (Lasix) 40 mg PO DAILY [facility] Last Admin: 07/08/18 07:59 Dose: Not Given Hydralazine HCl (Apresoline) 10 mg SLOW IVP Q4H PRN PRN Reason: SBP>160 DBP>100 Last Admin: 07/08/18 16:07 Dose: 10 mg Hydralazine HCl (Apresoline) 100 mg PO TID [facility] Last Admin: 07/08/18 14:25 Dose: 100 mg Cefazolin Sodium/Dextrose 2 gm (/ Device) 50 mls @ 100 mls/hr IVPB 0000,0800, 1600 [facility] Last Admin: 07/08/18 16:07 Dose: 50 mls Iron/Minerals/Multivitamins (Theragran M) 1 tab PO DAILY [facility] Last Admin: 07/08/18 08:45 Dose: 1 tab Isosorbide Mononitrate (Imdur Er) 30 mg PO BID [facility] Last Admin: 07/08/18 08:46 Dose: 30 mg Lisinopril (Zestril) 20 mg PO BID [facility] Last Admin: 07/08/18 08:45 Dose: 20 mg Loperamide HCl (Imodium) 2 mg PO QIDPRN PRN PRN Reason: Diarrhea/Loose Stools Magnesium Hydroxide (Milk Of Magnesium) 30 ml PO Q6H PRN PRN Reason: Constipation Last Admin: 07/08/18 17:03 Dose: 30 ml Methylcellulose (Citrucel) 500 mg PO DAILY [facility] Last Admin: 07/08/18 08:46 Dose: 500 mg Metoprolol Tartrate (Lopressor) 50 mg PO BID [facility] Last Admin: 07/08/18 08:45 Dose: 50 mg Mineral Oil/White Petrolatum (Eucerin Cream) 0 gm TOP BIDPRN PRN PRN Reason: Dry Skin Miscellaneous Medication (Phos-Nak) 1 pkt PO DAILY [facility] Stop: 07/10/18 09:01 Last Admin: 07/08/18 08:46 Dose: 1 pkt Morphine Sulfate (Morphine) 2 mg SLOW IVP Q2H PRN PRN Reason: Pain 7-10 Last Admin: 07/05/18 00:42 Dose: 2 mg Ondansetron HCl (Zofran) 4 mg SLOW IVP Q6H PRN PRN Reason: Nausea/Vomiting Last Admin: 07/04/18 09:58 Dose: 4 mg Pantoprazole Sodium (Protonix) 40 mg PO DAILY [facility] Last Admin: 07/08/18 08:46 Dose: 40 mg Phosphorus (Kphos Neutral) 250 mg PO TID[facility] Last Admin: 07/08/18 16:07 Dose: 250 mg Polyethylene Glycol (Miralax) 17 gm PO DAILY [facility] Last Admin: 07/08/18 08:46 Dose: 17 gm Prednisone (Prednisone) 15 mg PO QAM-[facility] Last Admin: 07/08/18 08:35 Dose: 15 mg Pregabalin (Lyrica) 25 mg PO Q8HR [facility] Last Admin: 07/08/18 14:24 Dose: 25 mg Promethazine HCl (Phenergan) 12.5 mg IVPB Q6H PRN PRN Reason: Nausea/Vomiting Last Admin: 07/04/18 12:45 Dose: 12.5 mg Rosuvastatin Calcium (Crestor) 10 mg PO DAILY [facility] Last Admin: 07/08/18 08:45 Dose: 10 mg Saccharomyces Boulardii (Florastor) 250 mg PO DAILY [facility] Last Admin: 07/08/18 08:45 Dose: 250 mg Senna/Docusate Sodium (Senokot S) 1 tab PO BID [facility] Last Admin: 07/08/18 08:47 Dose: Not Given Sodium Chloride (Flush - Normal Saline) 10 ml IVF Q12HR [facility] Last Admin: 07/08/18 08:47 Dose: 10 ml Sodium Chloride (Flush - Normal Saline) 10 ml IVF PRN PRN PRN Reason: Saline Flush Last Admin: 07/08/18 16:06 Dose: 10 ml Sodium Chloride (Normal Saline Pf) 10 ml FS PRN PRN PRN Reason: RECONSTITUTION Sotalol HCl (Betapace) 80 mg PO BID [facility] Last Admin: 07/08/18 08:46 Dose: 80 mg Thyroid (Cord Thyroid) 60 mg PO 0600 [facility] Last Admin: 07/08/18 06:09 Dose: 60 mg
--- NOTE | 2018-07-08 21:40 | CT ---
CT BRAIN WITHOUT CONTRAST: History: Numbness and tingling. TIAs. Comparison: 05-19-18 FINDINGS: There is mild atrophy. Moderate chronic microvascular ischemic changes. No acute hemorrhage or infarc t. No midline shift of mass effect. The calvarium is intact. Paranasal sinuses and mastoids are clear. IMPRESSION: NO acute intracranial abnormality. POS: [facility]
[2018-07-08] MEDS ORDERED: Nitroglycerin 0.4 MG TAB (25 Tab Bottle) ONE (21:49)
[2018-07-08] MEDS ORDERED: Nitroglycerin 0.4 MG TAB (25 Tab Bottle) SL PRN (22:02)
[2018-07-08] MEDS ORDERED: Diltiazem HCl 125 MG, Admixture Fee 1 EACH in Sodium Chloride 0.9% 100 ML IVPB SCH (22:15)
[2018-07-08 22:40] LABS: Anion Gap 15 mmol/L (10-20); BUN (Urea Nitrogen) 13 mg/dL (9.8-20.1); Calc. Creatinine Clearance 74 mL/min (70-130); Calcium 9.2 mg/dL (7.8-10.44); Carbon Dioxide 30 mmol/L (23-31); Chloride 96 mmol/L (98-107); Estimated GFR-MDRD 90; Glucose 142 mg/dL (83-110); Magnesium 2.3 mg/dL (1.6-2.6); Phosphorus 2.2 mg/dL (2.3-4.7); Potassium 3.7 mmol/L (3.5-5.1); Sodium 137 mmol/L (136-145)
[2018-07-08] MEDS ORDERED: Metoprolol Tartrate 5 MG/5 ML VIAL IVP SCH (23:45)
[2018-07-09] MEDS: HYDROcodone/Acetaminophen 10/325 mg Tablet PO PRN ×2 (00:07→20:10)
[2018-07-09] MEDS: CEFAZOLIN 2 GM in Premix Bag 1 BAG IVPB SCH ×3 (00:07→16:36)
[2018-07-09] MEDS: Morphine 2 MG/ML SYRINGE SLOW IVP PRN (04:23)
[2018-07-09] MEDS ORDERED: ALPRAZolam 0.25 MG TAB PO SCH (05:00)
[2018-07-09] MEDS: Pregabalin 25 MG CAP PO SCH ×3 (05:40→21:25)
[2018-07-09] MEDS: Thyroid 60 MG TAB PO SCH (05:40)
[2018-07-09] MEDS: Ondansetron PF 4 MG/2 ML Vial SLOW IVP PRN ×2 (06:32→13:37)
[2018-07-09] MEDS ORDERED: Diltiazem HCl 125 MG, Admixture Fee 1 EACH in Sodium Chloride 0.9% 100 ML IVPB SCH ×2 (08:15→11:31)
--- NOTE | 2018-07-09 09:14 | PRG ---
DATE OF SERVICE: 07/09/2018 DICTATING FOR: Juan Hairston MD SUBJECTIVE: Ms. Carrera is now postoperative day #6, having undergone multilevel thoracic and lumbar laminectomy for lumbar spinal stenosis. The patient states that if she did not have her hydrocodone, she would be in extreme pain. Otherwise, she notes some slight improvement into her left lower extremity symptoms. She is resting comfortably in bed. Her main issues right now are cardiac and that she continues with tachycardia in the 140s. Hospitalist and Cardiology are helping to manage this, although, the patient does have an MRI compatible pacemaker. She is also on several medications to help with this. From neurosurgical standpoint, she is recovering well postoperatively, but I reminded her that her body needs significant more time to heal. She again looks more comfortable and has good strength in the bilateral lower extremities with improved strength into the left lower extremity. We will continue to follow the patient and appreciate our medical colleagues as well as Cardiology helping to assist in the patient's medical management. Please call with any changes in the patient's neurologic status. Job ID: [id number]
[2018-07-09 09:43] LABS: Hemoglobin 10.8 g/dL (12.0-16.0)
[2018-07-09] MEDS: Citrucel 500 MG TAB PO SCH (09:53)
[2018-07-09] MEDS: Sotalol HCl 80 MG TAB PO SCH ×2 (09:54→20:09)
[2018-07-09] MEDS: Furosemide 40 MG TAB PO SCH (09:55)
[2018-07-09] MEDS: Lisinopril 20 MG TAB PO SCH ×2 (09:55→20:10)
[2018-07-09] MEDS: Enoxaparin Sodium 30 MG/0.3 ML SYRINGE SC SCH (09:55)
[2018-07-09] MEDS: predniSONE 5 MG TAB PO SCH (09:56)
[2018-07-09] MEDS: Metoprolol Tartrate 100 MG TAB PO SCH ×2 (09:57→20:09)
[2018-07-09] MEDS: K-Phos Neutral 250 MG TAB PO SCH (09:57)
[2018-07-09] MEDS: Multivitamin W/ Minerals 1 TAB PO SCH (09:58)
[2018-07-09] MEDS: Docusate 100 MG CAP PO SCH ×2 (09:58→20:11)
[2018-07-09] MEDS: cloNIDine 0.3 MG TAB PO SCH ×3 (09:58→20:09)
[2018-07-09] MEDS: Polyethylene Glycol 3350 17 GM Packet PO SCH (09:58)
[2018-07-09] MEDS: Folic Acid 1 MG TAB PO SCH (09:58)
[2018-07-09] MEDS: Saccharomyces boulardii 250 MG CAP PO SCH (09:58)
[2018-07-09] MEDS: Senokot S 8.6-50 MG TAB PO SCH ×2 (09:58→20:09)
[2018-07-09] MEDS: Rosuvastatin 10 MG TAB PO SCH (09:58)
[2018-07-09 10:00] LABS: Anion Gap 14 mmol/L (10-20); BUN (Urea Nitrogen) 12 mg/dL (9.8-20.1); Calc. Creatinine Clearance 77 mL/min (70-130); Calcium 9.2 mg/dL (7.8-10.44); Carbon Dioxide 32 mmol/L (23-31); Chloride 96 mmol/L (98-107); Estimated GFR-MDRD Greater than 90; Glucose 161 mg/dL (83-110); Magnesium 2.2 mg/dL (1.6-2.6); Phosphorus 3.1 mg/dL (2.3-4.7); Sodium 138 mmol/L (136-145)
--- NOTE | 2018-07-09 13:23 | PRG ---
DATE OF SERVICE: 07/09/2018 SUBJECTIVE: Arabella Carrera is complaining of nausea, vomiting, abdominal discomfort for the last 2 days. It has been several days since she has had a bowel movement. OBJECTIVE: GENERAL: She is in no distress, although she looks uncomfortable. VITAL SIGNS: She has been afebrile. Heart rate between 100 and 138 this morning. Blood pressure is 167/73 as high as 189/78 early this morning. LUNGS: Clear. HEART: Regular rhythm. Intermittently fast and irregular. LABORATORY DATA: no CBC for 2 days. Her abdomen is diffusely tender. Abdominal film was just ordered. IMPRESSION: 1. Constipation with abdominal pain, nausea, vomiting secondary to constipation? Certainly at risk for ischemic bowel. I will have her motor brakeman Dr. Tello take a look at her. With steroids her abdominal exam may be unreliable. 2. Other problems include atrial fibrillation, which has been difficult to control. 3. Chronic persistent asthma. 4. Deconditioning. 5. Status post multiple low laminectomies. 6. Status post pacemaker. 7. Deconditioning. 8. Steroid dose dependence with a history of adrenal crisis. 9. History of Watchman procedure. 10. History of diverticulitis. 11. Obesity. 12. We will continue to follow. Job ID: [id number] [facility]
--- NOTE | 2018-07-09 14:50 | RAD ---
KUB: Date: 07/09/18 INDICATION: ER examination for hypoactive bowel sounds. COMPARISON: Prior exam dated 11/04/17. FINDINGS: Vertebroplasty change involving the lower thoracic spine and lumbar spine are stable. Compression abn ormality of L1 is stable. There are vascular calcifications involving the abdominopelvic vasculature. There are mildly prominent gas-filled loops of small bowel within the central abdomen which are nons pecific. There is a mild amount of retained stool within the colon. IMPRESSION: 1. Mildly distended gas-filled loops of bowel within the central abdomen. A decubitus may be helpful to evaluate for differential air fluid levels which would suggest obstruction. There is a mild amoun t of retained stool within the right hemicolon. 2. Vertebroplasty change at T11, T12, and L3 are stable. Compression abnormality of L1 is similar ap pearing. POS: [facility]
--- NOTE | 2018-07-09 16:37 | ULT ---
BILATERAL LOWER EXTREMITY VENOUS DOPPLER WITH SPECTRAL ANALYSIS AND COLOR FLOW EVALUATION: Date: 07-09-18 History: Bilateral lower extremity pain. FINDINGS: Grayscale, color flow, doppler evaluation and spectral analysis of the bilateral lower extremity veno us structures is performed with 2D imaging. Bilateral lower extremity common femoral, superficial fem oral, popliteal, posterior tibial, and proximal greater saphenous and profunda femoral veins are imag ed. There is normal lumen compressibility, flow, and augmentation in the visualized deep venous structure s of the bilateral lower extremities. IMPRESSION: No evidence of a DVT involving the visualized deep venous structures bilateral lower extremities. POS: [facility]
--- NOTE | 2018-07-09 17:22 | PDOC.CTH ---
Cardiology Progress Note - Subjective The pt seen and examined. No overnight events. No cardiac complaints. She complains of back pain 2/2 back sx. - Objective Vital Signs Temp Pulse Resp BP BP BP Pulse Ox 07/09/18 16:31 197/77 H 07/09/18 11:30 98.0 F 152 H 20 163/73 H 96 07/09/18 09:58 167/73 H 07/09/18 09:55 167/73 H 07/09/18 09:54 138 H 167/73 H 07/09/18 08:00 97 07/09/18 07:25 97.6 F 100 20 189/78 H 97 Weight 140 lb 07/08/18 07/09/18 07/10/18 06:59 06:59 06:59 Intake Total 700 2120 Balance 700 2120 - Physical Examination General/Neuro: alert & oriented x3 Neck: no JVD present Lungs: other: (diminished at bases) Heart: other: (irregular) Abdomen: soft Extremities: other: (No edema) - Telemetry Telemetry Rhythm: Afib - Labs Result Diagrams: 07/09/18 09:18 07/09/18 09:18 Troponin/CKMB Troponin I 0.068 ng/mL (< 0.028) H 07/04/18 15:33 - Assessment/Plan 1. 2:1 Aflutter/Afib with RVR - HR went down to 80-90 with Sotalol 120mg BID, Metoprolol 100mg BID, and Diltiazem 15mg/h; On Lovenox 30mg qd since she has Watchman's device 2. HNP (herniated nucleus pulposus with myelopathy), thoracic on 07/04/2018 3. HTN - stable 4. Chronic diastolic HF (grade III with Echo in 05/2017) - stable with Lasix 40mg po qd, metoprolol and lisinopril 5. COPD - stable with RA 6. Hyperlipidemia - on Statin 7. Hypothyroidism - on medication 8. Sjogren's syndrome - on Prednisone 9. IBS - stable MAR reviewed Pt. seen and eval. by me. I agree with the A/P by the [employer]. I discussed her case with EP and agree that cardioversion is worth a try. I will plan for AM. Review of Systems - Review of Systems Constitutional: reports: no symptoms reported EENTM: reports: no symptoms reported Respiratory: reports: no symptoms reported Cardiac (ROS): reports: no symptoms reported ABD/GI: reports: no symptoms reported Musculoskeletal: reports: see HPI
[2018-07-09] MEDS ORDERED: Bisacodyl 10 MG SUPP PR SCH (18:00)
[2018-07-09] MEDS: Dicyclomine 10 MG CAP PO PRN (19:13)
--- NOTE | 2018-07-09 21:12 | PDOC.PN ---
- Subjective Encounter Start Date: 07/09/18 Encounter Start Time: 17:00 Patient seen and examined for multiple issues. Nausea +. Palpitations improved. Overnight events noted. Patient transferred to tele due to A flutter with RVR. - Objective Resuscitation Status - Order Detail: 07/01/18 09:58 Resuscitation Status Routine Resuscitation Status: PRTL: Chem-Intubation Discussed with: Patient Additional comments: Cardioversion also ok. No compressions. MAR Reviewed: Yes Vital Signs & Weight: Vital Signs (12 hours) Temp Pulse Resp BP BP Pulse Ox 07/09/18 20:10 162/70 H 07/09/18 20:09 80 162/70 H 07/09/18 18:00 149/77 H 07/09/18 16:31 197/77 H 07/09/18 16:05 98.1 F 143 H 20 155/97 H 97 07/09/18 11:30 98.0 F 152 H 20 163/73 H 96 07/09/18 09:58 167/73 H 07/09/18 09:55 167/73 H 07/09/18 09:54 138 H 167/73 H Weight Weight 140 lb Most Recent Monitor Data Heart Rate from ECG 71 NIBP 139/49 NIBP BP-Mean 79 Respiration from ECG 19 SpO2 92 I&O: 07/08/18 07/09/18 07/10/18 06:59 06:59 06:59 Intake Total 700 2120 Balance 700 2120 Result Diagrams: 07/09/18 09:18 07/09/18 09:18 EKG Reviewed by me: Yes (Tele Aflutter) Phys Exam - Physical Examination Constitutional: NAD Respiratory: no wheezing, no rhonchi Cardiovascular: no rub tachycardic Gastrointestinal: soft, non-tender, positive bowel sounds Musculoskeletal: no edema Neurological: moves all 4 limbs Psychiatric: A&O x 3 Dx/Plan - Plan DVT proph w/lovenox, DVT proph w/SCDs IMPRESSION: 1. Lumbar radiculopathy, status post laminectomy. 2. Atrial flutter/atrial fibrillation with rapid ventricular response. The patient also has a Watchman device. 3. Hypertension. 4. Chronic diastolic heart failure. 5. Chronic obstructive pulmonary disease. 6. Sjogren syndrome, on chronic steroids. 7. Hypothyroidism. 8. Constipation. 9. Irritable bowel syndrome. 10. Hyperlipidemia. 11. Diverticulosis. 12. Hypokalemia/hypomagnesemia/hypophosphatemia 13. Elevated troponin secondary to demand ischemia. 14. Hyponatremia. 15. Chronic anemia. 16. Leukocytosis, unlikely to be infectious. PLAN: Cont Cardizem drip Increase Metoprolol dose DC Hydralazine Check Venous Doppler of B/L LE to r/o DVT (?PE) Resume PT/OT once HR controlled. Cont current meds as below AM labs Check KUB Review of Systems - Review of Systems Respiratory: negative: Cough, Dry, Shortness of Breath, Hemoptysis, SOB with Excertion, Pleuritic Pain, Sputum, Wheezing Cardiovascular: negative: chest pain, palpitations, orthopnea, paroxysmal nocturnal dyspnea, edema, light headedness, other - Medications/Allergies Allergies/Adverse Reactions: Allergies Allergy/AdvReac Type Severity Reaction Status Date / Time adhesive tape Allergy Verified 07/07/18 01:18 amlodipine Allergy "swelled Verified 10/20/17 14:12 in feet and legs" Medications: Current Medications Hydrocodone Bitart/Acetaminophen ([place] 10/325) 1 tab PO Q6H PRN PRN Reason: Pain 1-5 Last Admin: 07/07/18 21:23 Dose: 1 tab Albuterol Sulfate (Ventolin) 2.5 mg NEB [id number] PRN PRN Reason: Wheezing Bisacodyl (Dulcolax) 10 mg [place] DAILY [facility] Clonidine (Catapres) 0.3 mg PO TID [facility] Last Admin: 07/09/18 20:09 Dose: 0.3 mg Cyclobenzaprine HCl (Flexeril) 5 mg PO Q8H PRN PRN Reason: Muscle Spasm/PAIN Last Admin: 07/08/18 08:47 Dose: 5 mg Dicyclomine HCl (Bentyl) 10 mg PO QIDPRN PRN PRN Reason: GI Cramping Last Admin: 07/09/18 19:13 Dose: 10 mg Enoxaparin Sodium (Lovenox) 30 mg SC 0900 [facility] Last Admin: 07/09/18 09:55 Dose: 30 mg Folic Acid (Folvite) 1 mg PO DAILY [facility] Last Admin: 07/09/18 09:58 Dose: 1 mg Furosemide (Lasix) 40 mg PO DAILY [facility] Last Admin: 07/09/18 09:55 Dose: Not Given Hydralazine HCl (Apresoline) 10 mg SLOW IVP Q4H PRN PRN Reason: SBP>160 DBP>100 Last Admin: 07/08/18 16:07 Dose: 10 mg Cefazolin Sodium/Dextrose 2 gm (/ Device) 50 mls @ 100 mls/hr IVPB 0000,0800, 1600 [facility] Last Admin: 07/09/18 16:36 Dose: 50 mls Diltiazem HCl 125 mg/Miscellaneous Medication 1 each/ Sodium Chloride 125 mls @ 15 mls/hr IVPB INF [facility]; Protocol Iron/Minerals/Multivitamins (Theragran M) 1 tab PO DAILY [facility] Last Admin: 07/09/18 09:58 Dose: 1 tab Isosorbide Mononitrate (Imdur Er) 30 mg PO BID [facility] Last Admin: 07/09/18 20:10 Dose: 30 mg Lisinopril (Zestril) 20 mg PO BID [facility] Last Admin: 07/09/18 20:10 Dose: 20 mg Loperamide HCl (Imodium) 2 mg PO QIDPRN PRN PRN Reason: Diarrhea/Loose Stools Magnesium Hydroxide (Milk Of Magnesium) 30 ml PO Q6H PRN PRN Reason: Constipation Last Admin: 07/08/18 17:03 Dose: 30 ml Methylcellulose (Citrucel) 500 mg PO DAILY [facility] Last Admin: 07/09/18 09:53 Dose: 500 mg Metoprolol Tartrate (Lopressor) 100 mg PO BID [facility] Last Admin: 07/09/18 20:09 Dose: 100 mg Mineral Oil/White Petrolatum (Eucerin Cream) 0 gm TOP BIDPRN PRN PRN Reason: Dry Skin Nitroglycerin (Nitrostat) 0.4 mg SL Q5MIN PRN PRN Reason: Chest Pain Ondansetron HCl (Zofran) 4 mg SLOW IVP Q6H PRN PRN Reason: Nausea/Vomiting Last Admin: 07/09/18 13:37 Dose: 4 mg Pantoprazole Sodium (Protonix) 40 mg PO DAILY [facility] Last Admin: 07/09/18 09:57 Dose: 40 mg Polyethylene Glycol (Miralax) 17 gm PO DAILY [facility] Last Admin: 07/09/18 09:58 Dose: Not Given Prednisone (Prednisone) 15 mg PO QAM[facility] Last Admin: 07/09/18 09:56 Dose: 15 mg Pregabalin (Lyrica) 25 mg PO Q8HR [facility] Last Admin: 07/09/18 16:31 Dose: 25 mg Promethazine HCl (Phenergan) 12.5 mg IVPB Q6H PRN PRN Reason: Nausea/Vomiting Last Admin: 07/04/18 12:45 Dose: 12.5 mg Rosuvastatin Calcium (Crestor) 10 mg PO DAILY [facility] Last Admin: 07/09/18 09:58 Dose: 10 mg Saccharomyces Boulardii (Florastor) 250 mg PO DAILY [facility] Last Admin: 07/09/18 09:58 Dose: 250 mg Senna/Docusate Sodium (Senokot S) 1 tab PO BID [facility] Last Admin: 07/09/18 20:09 Dose: 1 tab Sodium Chloride (Flush - Normal Saline) 10 ml IVF Q12HR [facility] Last Admin: 07/09/18 20:11 Dose: Not Given Sodium Chloride (Flush - Normal Saline) 10 ml IVF PRN PRN PRN Reason: Saline Flush Last Admin: 07/08/18 16:06 Dose: 10 ml Sodium Chloride (Normal Saline Pf) 10 ml FS PRN PRN PRN Reason: RECONSTITUTION Sotalol HCl (Betapace) 120 mg PO BID [facility] Last Admin: 07/09/18 20:09 Dose: 120 mg Thyroid ([place] Thyroid) 60 mg PO 0600 [facility] Last Admin: 07/09/18 05:40 Dose: 60 mg
[2018-07-10] MEDS: CEFAZOLIN 2 GM in Premix Bag 1 BAG IVPB SCH ×3 (00:25→19:21)
[2018-07-10] MEDS: Thyroid 60 MG TAB PO SCH (05:54)
[2018-07-10] MEDS: Pregabalin 25 MG CAP PO SCH ×3 (05:54→20:38)
[2018-07-10 06:10] LABS: ALT (SGPT) Less than 7 U/L (8-55); AST (SGOT) 12 U/L (5-34); Alkaline Phosphatase 68 U/L (40-150); Anion Gap 13 mmol/L (10-20); BUN (Urea Nitrogen) 17 mg/dL (9.8-20.1); Bilirubin, Total 0.4 mg/dL (0.2-1.2); Calc. Creatinine Clearance 63 mL/min (70-130); Calcium 9.4 mg/dL (7.8-10.44); Carbon Dioxide 30 mmol/L (23-31); Chloride 94 mmol/L (98-107); Estimated GFR-MDRD 75; Globulin 2.9 g/dL (2.4-3.5); Glucose 134 mg/dL (83-110); Lipase 18 U/L (8-78); Magnesium 2.2 mg/dL (1.6-2.6); Phosphorus 4.8 mg/dL (2.3-4.7); Potassium 4.4 mmol/L (3.5-5.1); Protein, Total 5.9 g/dL (6.0-8.3); Sodium 133 mmol/L (136-145)
[2018-07-10 06:19] LABS: Hemoglobin 9.6 g/dL (12.0-16.0); Hypochromia SLIGHT = 6-15 cells (100X) (0-5/hpf); Lymphocytes 4 % (21-51); MDiff Complete? YES; Mean Corpuscular HGB CONC 30.5 g/dL (32.0-36.0); Mean Corpuscular Hemoglobin 25.7 pg (27.0-31.0); Mean Platelet Volume 7.7 fL (7.4-10.4); Monocytes 4 % (0-10); Neutrophil 92 % (42-75); Platelet Count 350 thou/uL (130-400); Platelet Morphology Comment Appears Adequate; RBC Distribution Width 16.7 % (11.5-14.5); Red Blood Cell (RBC) Count 3.72 mill/uL (4.20-5.40); White Blood Cell (WBC) Count 22.5 thou/uL (4.8-10.8)
--- NOTE | 2018-07-10 07:57 | CON ---
DATE OF CONSULTATION: 07/09/2018 HISTORY OF PRESENT ILLNESS: I am seeing Mrs. Carrera at our [facility] telemetry as an Electrophysiology otm consultant. Her problems are: 1. Continued atrial flutter, possibly atypical with rapid rate despite sotalol use. 2. Three atrial arrhythmias. a. Prior history of pulmonary venous isolation procedure on 01/30/2015. b. Tachy-sally syndrome prompting a dual-chamber placement and implantation in March 2018 to [employer] device. c. Status post initiation of sotalol and subsequent cardioversion in March 2018. d. Recurrent atrial flutter noted currently. 3. Current admission with herniated disk, status post diskectomy on 07/03/2018. 4. History of diastolic heart failure, on Lasix, metoprolol, and lisinopril. 5. History of COPD. 6. History of Sjogren's syndrome, on prednisone. 7. IBS. 8. History of hypertension. 9. History of Watchman device placement with no leak on subsequent ARIELLE in July 2015, off anticoagulation. ALLERGIES: ADHESIVE TAPE AND AMLODIPINE. MEDICATIONS: At home included: 1. [place] Thyroid supplements. 2. Rosuvastatin. 3. Albuterol. 4. Multivitamin. 5. Hydrocodone. 6. Prednisone. 7. Folic acid. 8. Mesalamine. 9. Loperamide. 10. Dicyclomine. 11. Lisinopril. 12. Metoprolol tartrate. 13. Sotalol 80 mg twice a day. 14. Hydralazine. 15. Ibuprofen. 16. Furosemide. 17. Aspirin. 18. Omeprazole. 19. Clonidine. SUBJECTIVE: Ms. Carrera is here with severe backaches and required diskectomy on the . She was noted to be in atrial flutter with rapid rate and she was evaluated by . She was placed on diltiazem transiently. She is currently recovering from the surgery, requiring significant pain control. She has significant fatigue and tiredness today and hence, she is somewhat of a poor historian. It seems that she has no current angina or she does not pass out. No stroke-like symptoms. No neurological deficits. No fever, chills, or cough. Rest of 12-point system otherwise unremarkable. PAST SOCIAL HISTORY: As above. SOCIAL HISTORY: The patient denies EtOH, drug or tobacco abuse. She had history of only social alcohol intake and quit that recently as well. She is . She has a surrogate decision maker of her son. She has severe osteoporosis. FAMILY HISTORY: Significant for stroke. PAST SURGICAL HISTORY: Significant for cholecystectomy, lumbar laminectomy, Watchman device placement in 2016, prior pacemaker placement last year, thyroidectomy for goiter, and vertebroplasty. OBJECTIVE DATA: VITAL SIGNS: Blood pressure is 160/73, heart rate 152, respirations 20, and temperature 98 degrees Fahrenheit. PHYSICAL EXAMINATION: GENERAL: Alert and oriented woman, in no apparent distress. NECK: Supple. Jugular veins not distended. CHEST: Coarse without crackles. HEART: Sounds are regular to rate and rhythm. No murmur or gallop. ABDOMEN: Benign. Bowel sounds positive. EXTREMITIES: Lower extremities without edema, clubbing, or cyanosis. Pulses are adequate. NEUROLOGIC: The patient is nonfocal. MUSCULOSKELETAL: Without joint swelling or deformity. SKIN: Without rash. DATABASE: The EKG is reviewed revealing regular narrow complex tachycardia, likely atrial flutter with rapid rates are noted. Atrial flutter waves are somewhat atypical, but difficult to assess due to 2:1 AV conduction, likely atypical atrial flutter is present. LABORATORY DATA: White cell count is 9.3, hemoglobin 8.3, platelet count is 263 on 24th. HGB today is 10.8. INR 1.0. Sodium 138, potassium 4, BUN is 12, creatinine 0.6. Troponin level 0.052 and 0.068 on baseline admission. ASSESSMENT AND PLAN: Mrs. Carrera is a pleasant 77-year-old lady, who has significant history of atrial arrhythmias, prior left atrial ablation procedure in the past. She has had atypical atrial flutter with subsequent initiation of sotalol last year. Now, she has had recurrent atrial flutter in recovering from thoracic surgery. Atrial flutter associated with poor ventricular rate control. In the past, she had good response of sotalol. At this point, I will consider continuing rate control with diltiazem and possibly initiating a cardioversion procedure once clinically stable. Will attempt to increase he Sotalol to 120mg BID. Hence, she had Watchman procedure in place, which is without leak and oral anticoagulation will be necessary. Long-term repeat left and possible right atrial ablation could be considered, although, likely best avoided in this frail elderly lady with multiple comorbidities. Job ID: [id number] [facility]
--- NOTE | 2018-07-10 08:44 | RAD ---
2 VIEWS OF ABDOMEN: Date: 07/10/18 COMPARISON: None. HISTORY: Shortness of breath since last night. FINDINGS: Supine and decubitus views of the abdomen show multiple air-filled loops of small bowel scattered thr oughout the abdomen. Multiple air fluid levels are seen on decubitus exam. No free air is identified. Vascular calcifications are seen. Vertebroplasty cement and degenerative changes are seen in the spin e. IMPRESSION: Dilated loops of small bowel may be secondary to ileus or small bowel obstruction. POS: ARNAV
[2018-07-10] MEDS ORDERED: Bisacodyl 10 MG SUPP PR SCH (09:00)
[2018-07-10] MEDS: cloNIDine 0.3 MG TAB PO SCH ×3 (09:05→20:36)
[2018-07-10] MEDS: Lisinopril 20 MG TAB PO SCH ×2 (09:05→20:36)
[2018-07-10] MEDS: Sotalol HCl 80 MG TAB PO SCH ×2 (09:06→20:37)
[2018-07-10] MEDS: Metoprolol Tartrate 100 MG TAB PO SCH ×2 (09:09→20:36)
[2018-07-10] MEDS: Polyethylene Glycol 3350 17 GM Packet PO SCH (09:09)
[2018-07-10] MEDS: Dicyclomine 10 MG CAP PO PRN (09:15)
--- NOTE | 2018-07-10 11:04 | PDOC.CTH ---
Cardiology Progress Note - Objective Vital Signs Temp Pulse Resp BP BP Pulse Ox 07/10/18 09:05 148/69 H 07/10/18 08:50 98.1 F 88 16 148/69 H 92 L Weight 144 lb 8 oz 07/09/18 07/10/18 07/11/18 06:59 06:59 06:59 Intake Total 2120 180 Output Total 300 Balance 2120 -120 - Physical Examination General/Neuro: alert & oriented x3 Neck: no JVD present Lungs: CTA Heart: other: (irreg/irreg.) Abdomen: soft, other: (decreased BS. Tympanic.) - Telemetry Telemetry Rhythm: Atrial fibrillation. - Labs Result Diagrams: 07/10/18 05:23 07/10/18 05:23 Troponin/CKMB Troponin I 0.068 ng/mL (< 0.028) H 07/04/18 15:33 - Assessment/Plan 1. 2:1 Aflutter/Afib with RVR - HR went down to 80-90 with Sotalol 120mg BID, Metoprolol 100mg BID, and Diltiazem 15mg/h; On Lovenox 30mg qd since she has Watchman's device. cardioversion this AM. 1 attempt at 200j -> NSR. 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 2. HNP (herniated nucleus pulposus with myelopathy), thoracic on 07/04/2018 3. HTN - stable 4. Chronic diastolic HF (grade III with Echo in 05/2017) - stable with Lasix 40mg po qd, metoprolol and lisinopril 5. COPD - stable with RA 6. Hyperlipidemia - on Statin 7. Hypothyroidism - on medication 8. Sjogren's syndrome - on Prednisone 9. IBS - stable MAR reviewed
[2018-07-10] MEDS: D5 1/2 NS w/20 mEq KCL 1,000 ML IV SCH (12:11)
--- NOTE | 2018-07-10 12:57 | PDOC.CTH ---
Cardiology Progress Note - Subjective The pt seen and examined. No overnight events. No cardiac complaints. - Objective Vital Signs Temp Pulse Resp BP BP Pulse Ox 07/10/18 12:00 98.6 F 75 16 181/77 H 97 07/10/18 09:05 148/69 H 07/10/18 08:50 98.1 F 88 16 148/69 H 92 L Weight 144 lb 8 oz 07/09/18 07/10/18 07/11/18 06:59 06:59 06:59 Intake Total 2120 180 Output Total 300 Balance 2120 -120 - Labs Result Diagrams: 07/10/18 05:23 07/10/18 05:23 Troponin/CKMB Troponin I 0.068 ng/mL (< 0.028) H 07/04/18 15:33 - Assessment/Plan <addendum> s/p DCCV today; remains in SR; stop Diltazem drip now.
[2018-07-10] MEDS: predniSONE 5 MG TAB PO SCH (13:48)
[2018-07-10] MEDS: Enoxaparin Sodium 30 MG/0.3 ML SYRINGE SC SCH (13:48)
[2018-07-10] MEDS: Rosuvastatin 10 MG TAB PO SCH (13:49)
[2018-07-10] MEDS: Saccharomyces boulardii 250 MG CAP PO SCH (13:49)
[2018-07-10] MEDS: Multivitamin W/ Minerals 1 TAB PO SCH (13:49)
[2018-07-10] MEDS: hydrALAZINE 20 MG/ML VIAL SLOW IVP PRN (13:56)
[2018-07-10] MEDS: Ondansetron PF 4 MG/2 ML Vial SLOW IVP PRN (13:58)
[2018-07-10] MEDS: Promethazine HCl 25 MG/ML VIAL IVPB PRN (15:11)
--- NOTE | 2018-07-10 15:16 | CON ---
DATE OF CONSULTATION: 07/10/2018 REASON FOR CONSULTATION: Abdominal pain, nausea, and vomiting. HISTORY OF PRESENT ILLNESS: Arabella Carrera is a very pleasant 77-year-old woman usually seen by my GI colleague, Dr. Abiodun Tello. She has a history of recurrent diverticulitis with perforated diverticulitis last year, managed conservatively in light of clinical improvement with conservative treatment and all of her comorbidities. She did not end up undergoing segmental colon resection as had been the plan at one time. Regardless, she has not had any further bouts of diverticulitis for the past several months. Her last colonoscopy was in late 2017 and showed a few colon polyps removed as well as diffuse diverticulosis. Ms. Carrera has significant issues with her spine and chronic pain and neuropathy resulting from this. She was admitted to the hospital 10 days ago with worsening thoracic myelopathy and one week ago, she underwent quite extensive back surgery. Over the past week, she has been slowly recuperating in the hospital. She reports that over this time her chronic constipation has worsened. Normally, she manages her constipation pretty well as an outpatient with milk of magnesia and Dulcolax suppository every few days on an as-needed basis. Here, she has been getting the Dulcolax suppository and having a small amount of stool output, but not much. She has had some progressive abdominal distention and then over the past few days, she has had several episodes of nonbloody emesis. She does not have very much abdominal pain with this, though the left side of her abdomen is tender to palpation. She had abdominal x-rays yesterday and today and these demonstrate fairly diffuse gaseous distention of multiple small bowel loops consistent with small-bowel obstruction versus ileus. REVIEW OF SYSTEMS: Full review of systems including constitutional; head, eyes, ears, nose, and throat; GI; ; cardiovascular; respiratory; musculoskeletal; and neurologic systems are negative except as noted in the HPI. PAST MEDICAL HISTORY: Sjogren's disease with long-term steroid use; atrial fibrillation, status post multiple ablations; Watchman device, pacemaker; CHF with diastolic dysfunction; TIA x2; hypertension; hyperlipidemia; complicated diverticulitis with perforation, treated conservatively; severe chronic back pain; irritable bowel syndrome; thyroidectomy; chronic anemia; asthma; pancreatitis; cholecystectomy; lumbar laminectomy; and vertebroplasty. FAMILY HISTORY: Noncontributory. SOCIAL HISTORY: No smoking, alcohol, or drug use. ALLERGIES: AMLODIPINE. MEDICATIONS: 1. [place] 10/325 p.r.n. 2. Cefazolin IV. 3. Albuterol p.r.n. 4. Clonidine 0.3 mg t.i.d. 5. Flexeril p.r.n. 6. Lovenox 30 mg daily. 7. Hydralazine p.r.n. 8. Multivitamin daily. 9. Imdur 30 mg b.i.d. 10. Lisinopril 20 mg b.i.d. 11. Milk of magnesia p.r.n. 12. Metoprolol 100 mg b.i.d. 13. Zofran 4 mg IV p.r.n. 14. Protonix 40 mg daily. 15. MiraLAX 17 g daily. 16. Prednisone 15 mg daily. 17. Lyrica 25 mg p.o. q.8 hours. 18. Phenergan p.r.n. 19. Crestor 10 mg daily. 20. Florastor 250 mg daily. 21. Sotalol 120 mg b.i.d. 22. [place] Thyroid 60 mg daily. PHYSICAL EXAMINATION: VITAL SIGNS: Temperature 98.6, blood pressure 181/77, pulse 75, and 97% oxygen saturation on 2 L nasal cannula. GENERAL: A 77-year-old woman, lying in bed fairly comfortably, in no acute distress. MENTAL: Alert and fully oriented. Pleasant, conversational. SKIN: No jaundice. No rashes were palpable. EYES: No scleral icterus. Extraocular movements intact. ENT: Mucous membranes moist. No oral lesions. LYMPH: No submandibular or supraclavicular lymphadenopathy. THYROID: Thyroidectomy scar. HEART: Regular rate and rhythm. LUNGS: Clear to auscultation bilaterally. ABDOMEN: Mildly distended. The abdomen is not tense. Bowel sounds are hypoactive, but present in all 4 quadrants. There is tenderness to palpation in the left lower quadrant, but no guarding or rebound tenderness. EXTREMITIES: No peripheral edema. VESSELS: Radial pulses 2+ bilaterally. NEUROLOGIC: Cranial nerves 2 through 12 intact bilaterally. LABORATORY STUDIES: WBC 22.5, hemoglobin 9.6, platelets 350. INR 1.0. Sodium 133, potassium 4.4, BUN 17, creatinine 0.75. Total bilirubin 0.4, alkaline phosphatase 68, AST 12, ALT less than 7, albumin 3.0, and lipase 18. IMAGING STUDIES: Abdominal x-ray from this morning demonstrates multiple air-filled loops of small bowel throughout the abdomen. No free air identified. ASSESSMENT AND PLAN: 1. Nausea and vomiting. 2. Small bowel ileus, in the context of recent spinal surgery. 3. Chronic constipation, worsened postoperatively. The patient's presentation seems more consistent with an ileus, rather than mechanical small-bowel obstruction or recurrent episode of diverticulitis. She has multiple risk factors for ileus including her postoperative and immobile state, narcotic use, etc. Surgical opinion is pending as well. I think that if Surgery agrees that there is no significant concern for mechanical small-bowel obstruction, the patient might benefit from starting a selective opioid antagonist such as Movantik, starting at 12.5 mg p.o. daily. The patient has been made n.p.o. I discussed with her the possibility of placing a nasogastric tube for gastric decompression, but the patient is declining this for now. I did advise that if she is having recurrent vomiting later today, the nasogastric tube be placed this evening. Obviously, mobilize as much as possible. The Dulcolax suppositories can be continued. I will hold off on her dicyclomine, so discontinue this for now. Thank you for the consultation. Please call anytime with questions or concerns. Job ID: [id number]
[2018-07-10] MEDS ORDERED: PROPOFOL 200 MG/20 ML VIAL ONE (15:23)
[2018-07-10] MEDS ORDERED: Lidocaine 1% PF 5 ML VIAL ONE (15:23)
--- NOTE | 2018-07-10 15:58 | PRG ---
DATE OF SERVICE: 07/10/2018 SUBJECTIVE: Arabella Carrera was a little confused when I rounded on her today. She told me she was given a bed bath for 89th birthday. OBJECTIVE: VITAL SIGNS: Blood pressure has been as high as 212/88, heart rate 81, blood pressure this afternoon is 189/81. Intake and output is negative 120. Only 300 mL was recorded out. Last, 2 days before, no recorded output because of a diaper. LUNGS: Clear. HEART: Regular rate and rhythm. ABDOMEN: Soft. IMPRESSION: 1. Asthmatic bronchitis by history, clinically stable. 2. Hypertension, not adequately controlled. 3. Deconditioning with advanced age. 4. Atrial fibrillation and atrial flutter. 5. Status post multilevel back surgery. 6. History of diastolic heart failure, asymptomatic. 7. Sjogren syndrome. 8. 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 9. History of multiple ablations for atrial fibrillation, atrial flutter, and Watchman device. 10. History of pacemaker. 11. History of diverticulitis with perforation. 12. History of pancreatitis. 13. History of cholecystectomy. PLAN: 1. We will continue to follow. She clinically appears stable. 2. Still dealing with an ileus and chronic constipation. 3. Gastroenterology has been consulted. Job ID: [id number]
--- NOTE | 2018-07-10 16:21 | PDOC.CTH ---
Cardiology Progress Note - Subjective EP PROGRESS NOTE: 07/10/18 Seen as follow up for for atrial fluter despite sotalol. Feels poorly and having nausea/vomiting today. No new cardiac concerns. - Objective Vital Signs Temp Pulse Resp BP BP Pulse Ox 07/10/18 15:11 189/81 H 07/10/18 14:45 81 177/65 H 07/10/18 13:56 74 212/88 H 07/10/18 12:00 98.6 F 75 16 181/77 H 97 07/10/18 09:05 148/69 H 07/10/18 08:50 98.1 F 88 16 148/69 H 92 L Weight 144 lb 8 oz 07/09/18 07/10/18 07/11/18 06:59 06:59 06:59 Intake Total 2120 180 Output Total 300 Balance 2120 -120 - Physical Examination General/Neuro: alert & oriented x3, NAD Neck: carotid US brisk, no JVD present Lungs: CTA, unlabored respirations Heart: PMI normal, RRR Abdomen: NT/ND, soft - Telemetry Telemetry Rhythm: SR - Labs Result Diagrams: 07/10/18 05:23 07/10/18 05:23 Troponin/CKMB Troponin I 0.068 ng/mL (< 0.028) H 07/04/18 15:33 - Assessment/Plan 1. Atypical atrial flutter - likely provoked by recent spinal surgery/diskectomy -Increased sotalol to 120mg BID on 07/09. QTc unchanged by 12 lead EKG today ( 480msec) - continue sotalol with 12 lead EKG 2 hrs after every dose - watchman in place, no need for OAC 2. Dual chamber PPM - normal operation 3. COPD 4. Diastolic heart failure, chronic 5. Herniated disk -s/p diskectomy - pain - possible illeus Continue sotalol. If unable to take PO due to SBO/illeus, may need to transition to IV sotalol. QTc stable today.
[2018-07-10] MEDS: HYDROcodone/Acetaminophen 10/325 mg Tablet PO PRN (19:20)
[2018-07-10] MEDS ORDERED: cloNIDine 0.1 MG TAB PO PRN (20:19)
--- NOTE | 2018-07-10 20:24 | PDOC.PN ---
- Subjective Encounter Start Date: 07/10/18 Encounter Start Time: 13:00 Patient seen and examined for multiple medical problems. s/p CV. Nausea +. No BM. Not passing gas today. No overnight events - Objective Resuscitation Status - Order Detail: 07/01/18 09:58 Resuscitation Status Routine Resuscitation Status: PRTL: Chem-Intubation Discussed with: Patient Additional comments: Cardioversion also ok. No compressions. MAR Reviewed: Yes Vital Signs & Weight: Vital Signs (12 hours) Temp Pulse Resp BP BP Pulse Ox 07/10/18 15:11 189/81 H 07/10/18 14:45 81 177/65 H 07/10/18 13:56 74 212/88 H 07/10/18 12:00 98.6 F 75 16 181/77 H 97 07/10/18 09:05 148/69 H 07/10/18 08:50 98.1 F 88 16 148/69 H 92 L Weight Weight 144 lb 8 oz Most Recent Monitor Data Heart Rate from ECG 71 NIBP 139/49 NIBP BP-Mean 79 Respiration from ECG 19 SpO2 92 I&O: 07/09/18 07/10/18 07/11/18 06:59 06:59 06:59 Intake Total 2120 180 Output Total 300 Balance 2120 -120 Result Diagrams: 07/10/18 05:23 07/10/18 05:23 Phys Exam - Physical Examination Constitutional: NAD Respiratory: no wheezing, no rhonchi Cardiovascular: RRR, no rub Gastrointestinal: soft, positive bowel sounds mild gen tenderness, hypoactive BS Musculoskeletal: no edema Neurological: moves all 4 limbs Dx/Plan - Plan DVT proph w/lovenox, DVT proph w/SCDs IMPRESSION: 1. Lumbar radiculopathy, status post laminectomy. 2. Atrial flutter/atrial fibrillation with rapid ventricular response. s/p CV The patient also has a Watchman device. 3. Ileus vs SBO 4. Chronic diastolic heart failure. 5. Chronic obstructive pulmonary disease. 6. Sjogren syndrome, on chronic steroids. 7. Hypothyroidism. 8. Constipation. 9. Irritable bowel syndrome. 10. Hypertension/Hyperlipidemia. 11. Diverticulosis. 12. Hypokalemia/hypomagnesemia/hypophosphatemia 13. Elevated troponin secondary to demand ischemia. 14. Hyponatremia. 15. Chronic anemia. 16. Leukocytosis, unlikely to be infectious. PLAN: DC Cardizem drip per Cardiology Sotalol dose increased Cont current dose of Metoprolol Declining NG tube Cont current meds as below AM labs Review of Systems - Review of Systems Respiratory: negative: Cough, Dry, Shortness of Breath, Hemoptysis, SOB with Excertion, Pleuritic Pain, Sputum, Wheezing Cardiovascular: negative: chest pain, palpitations, orthopnea, paroxysmal nocturnal dyspnea, edema, light headedness, other Gastrointestinal: Nausea, Vomiting. negative: Abdominal Pain, Diarrhea, Constipation, Melena, Hematochezia, Other - Medications/Allergies Allergies/Adverse Reactions: Allergies Allergy/AdvReac Type Severity Reaction Status Date / Time adhesive tape Allergy Verified 07/07/18 01:18 amlodipine Allergy "swelled Verified 10/20/17 14:12 in feet and legs" Medications: Current Medications Hydrocodone Bitart/Acetaminophen ([place] 10/325) 1 tab PO Q6H PRN PRN Reason: Pain 1-5 Last Admin: 07/10/18 19:20 Dose: 1 tab Albuterol Sulfate (Ventolin) 2.5 mg NEB [id number] PRN PRN Reason: Wheezing Bisacodyl (Dulcolax) 10 mg AK DAILY [facility] Clonidine (Catapres) 0.3 mg PO TID [facility] Last Admin: 07/10/18 15:11 Dose: 0.3 mg Clonidine (Catapres) 0.1 mg PO Q4H PRN PRN Reason: Systolic BP > 180 Cyclobenzaprine HCl (Flexeril) 5 mg PO Q8H PRN PRN Reason: Muscle Spasm/PAIN Last Admin: 07/08/18 08:47 Dose: 5 mg Enoxaparin Sodium (Lovenox) 30 mg SC 0900 [facility] Last Admin: 07/10/18 13:48 Dose: Not Given Hydralazine HCl (Apresoline) 10 mg SLOW IVP Q4H PRN PRN Reason: SBP>160 DBP>100 Last Admin: 07/10/18 13:56 Dose: 10 mg Cefazolin Sodium/Dextrose 2 gm (/ Device) 50 mls @ 100 mls/hr IVPB 0000,0800, 1600 [facility] Last Admin: 07/10/18 19:21 Dose: 50 mls Potassium Chloride/Dextrose/Sod Cl (D5 1/2 Ns W/20 Meq Kcl) 1,000 mls @ 50 mls/ hr IV .Q20H [facility] Last Admin: 07/10/18 12:11 Dose: 1,000 mls Iron/Minerals/Multivitamins (Theragran M) 1 tab PO DAILY [facility] Last Admin: 07/10/18 13:49 Dose: Not Given Isosorbide Mononitrate (Imdur Er) 30 mg PO BID [facility] Last Admin: 07/10/18 13:49 Dose: Not Given Labetalol HCl (Normodyne) 10 mg SLOW IVP Q4H PRN PRN Reason: Systolic BP > 180 Lisinopril (Zestril) 20 mg PO BID [facility] Last Admin: 07/10/18 09:05 Dose: 20 mg Magnesium Hydroxide (Milk Of Magnesium) 30 ml PO Q6H PRN PRN Reason: Constipation Last Admin: 07/08/18 17:03 Dose: 30 ml Metoprolol Tartrate (Lopressor) 100 mg PO BID [facility] Last Admin: 07/10/18 09:09 Dose: 100 mg Mineral Oil/White Petrolatum (Eucerin Cream) 0 gm TOP BIDPRN PRN PRN Reason: Dry Skin Nitroglycerin (Nitrostat) 0.4 mg SL Q5MIN PRN PRN Reason: Chest Pain Ondansetron HCl (Zofran) 4 mg SLOW IVP Q6H PRN PRN Reason: Nausea/Vomiting Last Admin: 07/10/18 13:58 Dose: 4 mg Pantoprazole Sodium (Protonix) 40 mg PO DAILY [facility] Last Admin: 07/10/18 13:49 Dose: Not Given Polyethylene Glycol (Miralax) 17 gm PO DAILY [facility] Last Admin: 07/10/18 09:09 Dose: Not Given Prednisone (Prednisone) 15 mg PO QAM-WM [facility] Last Admin: 07/10/18 13:48 Dose: Not Given Pregabalin (Lyrica) 25 mg PO Q8HR [facility] Last Admin: 07/10/18 14:04 Dose: Not Given Promethazine HCl (Phenergan) 12.5 mg IVPB Q6H PRN PRN Reason: Nausea/Vomiting Last Admin: 07/10/18 15:11 Dose: 12.5 mg Rosuvastatin Calcium (Crestor) 10 mg PO DAILY [facility] Last Admin: 07/10/18 13:49 Dose: Not Given Saccharomyces Boulardii (Florastor) 250 mg PO DAILY [facility] Last Admin: 07/10/18 13:49 Dose: Not Given Sodium Chloride (Flush - Normal Saline) 10 ml IVF Q12HR [facility] Last Admin: 07/10/18 13:53 Dose: Not Given Sodium Chloride (Flush - Normal Saline) 10 ml IVF PRN PRN PRN Reason: Saline Flush Last Admin: 07/08/18 16:06 Dose: 10 ml Sodium Chloride (Normal Saline Pf) 10 ml FS PRN PRN PRN Reason: RECONSTITUTION Sotalol HCl (Betapace) 120 mg PO BID [facility] Last Admin: 07/10/18 09:06 Dose: 120 mg Thyroid ([place] Thyroid) 60 mg PO 0600 [facility] Last Admin: 07/10/18 05:54 Dose: 60 mg
--- NOTE | 2018-07-10 23:43 | CON ---
DATE OF CONSULTATION: 07/10/2018 HISTORY OF PRESENT ILLNESS: Ms. Carrera is a 77-year-old woman with chronic back pain, who was admitted on 06/30/2018 with worsening back pain and progressive right hip and thigh pain. She was seen in consultation by Neurosurgery following workup and was ultimately taken to the operating room for multilevel thoracolumbar spinal instrumentation of which the patient is postop day #7 today. For the last 2 days, the patient endorses intermittent crampy abdominal pain associated with multiple episodes of bilious emesis of large volume. It has been several days since she last had a bowel movement. She last passed flatus she thinks yesterday, but it was not much. She denies any fevers or chills. PAST MEDICAL HISTORY: Significant for Sjogren's disease, chronic atrial fibrillation, recurrent diverticulitis, TIA x2, and asthma. PAST SURGICAL HISTORY: Significant for lumbar laminectomy, prior cholecystectomy, pacemaker implantation, partial thyroidectomy, and multiple vertebroplasties. FAMILY HISTORY: Noncontributory for this patient's age. I have reviewed the patient's pre-hospital medication of which a complete list is on record. ALLERGIES: TO ADHESIVE TAPE AND AMLODIPINE. REVIEW OF SYSTEMS: Ten-point review of systems is essentially unremarkable except as stated in past medical history and chief complaint. PHYSICAL EXAMINATION: GENERAL: This reveals a 77-year-old normally developed woman, who is otherwise coherent and interactive and appears stated age. The patient is alert and oriented x3. She appears to be in no acute distress at the time of my evaluation. VITAL SIGNS: Include blood pressure 177/65, pulse 81 and irregular, respiratory rate is 16, temperature is 98.6 degrees Fahrenheit, oxygen saturation 97% on 2 L by nasal cannula oxygen. HEENT: Pupils are equal, round, and reactive to light and accommodation. She has no jugular venous distention noted. HEART: Reveals irregular rate and irregular rhythm. LUNGS: Clear to auscultation bilaterally. Her breathing, regular and nonlabored. ABDOMEN: Soft and moderately distended. She has moderate tenderness to palpation with no gross rebound tenderness present. Liver and spleen are nonpalpable below costal margins. NEUROLOGIC: Reveals no focal deficits present. LABORATORY FINDINGS: Today includes a CBC with 22,500 white blood cells, hemoglobin and hematocrit are 9.6 and 31.3 respectively. Platelet count is 350,000. Differential count as follows: 92% neutrophils, 4 lymphocytes, and 4 monocytes. Metabolic profile; sodium 133, potassium is 4.4, chloride is 94, bicarb is 30, BUN 17, creatinine 0.75, glucose 134, AST and ALT are normal at 12 and less than 7 respectively. Serum lipase is also normal at 18. I have personally reviewed the abdominal x-rays obtained today compared to yesterday. Both x-rays are remarkable for multiple distended loops of small and large bowel with gas. I see scant amount of gas also in the rectum. IMPRESSION: 1. Postoperative day #7 status post multiple-level thoracolumbar spinal instrumentation. 2. Abdominal pain with nausea and vomiting, secondary to adynamic ileus vs Small bowel obstruction. RECOMMENDATIONS: Although this patient is at risk for small bowel obstruction having had multiple abdominal operations, I think that current immobility in the perioperative phase as well as the use of narcotics is the patient's risk for adynamic ileus, which is more possible. Nevertheless, there is no acute surgical indication for this patient at this time. We will continue with bowel rest. I will place a nasogastric tube for decompression and continue with serial physical examination. I anticipate this will resolve. Failure of resolution within the next 24 to 48 hours. We will consider a Gastrografin small-bowel follow-through at that time. Above findings and plan has been discussed with the patient, who indicates understanding information given. I have answered her questions. Thank you again, Dr. Browne, for allowing me the opportunity to participate in the care of this patient. Job ID: [id number] [facility]
[2018-07-11] MEDS: CEFAZOLIN 2 GM in Premix Bag 1 BAG IVPB SCH ×2 (00:04→14:01)
[2018-07-11] MEDS: HYDROcodone/Acetaminophen 10/325 mg Tablet PO PRN ×2 (00:05→12:03)
[2018-07-11] MEDS: hydrALAZINE 20 MG/ML VIAL SLOW IVP PRN (00:06)
[2018-07-11] MEDS ORDERED: Morphine 4 MG/ML VIAL SLOW IVP SCH (01:25)
[2018-07-11] MEDS ORDERED: Diltiazem HCl 125 MG, Admixture Fee 1 EACH in Sodium Chloride 0.9% 100 ML IVPB SCH (02:00)
[2018-07-11] MEDS: Thyroid 60 MG TAB PO SCH (05:39)
[2018-07-11] MEDS: Pregabalin 25 MG CAP PO SCH ×3 (05:39→21:29)
[2018-07-11 06:50] LABS: #Eosinphils 0.1 thou/uL (0.0-0.7); #Lymphocytes 2.9 thou/uL (1.20-3.40); #Monocytes 0.9 thou/uL (0.11-0.59); %Eosinophils 0.5 % (0.0-10.0); %Lymphocytes 14.5 % (21.0-51.0); %Monocytes 4.5 % (0.0-10.0); %Neutrophils 80.5 % (42.0-75.0); Hemoglobin 10.3 g/dL (12.0-16.0); Mean Corpuscular HGB CONC 30.9 g/dL (32.0-36.0); Mean Corpuscular Hemoglobin 25.9 pg (27.0-31.0); Mean Corpuscular Volume 83.9 fL (78.0-98.0); Mean Platelet Volume 7.4 fL (7.4-10.4); Platelet Count 347 thou/uL (130-400); RBC Distribution Width 16.9 % (11.5-14.5); Red Blood Cell (RBC) Count 3.99 mill/uL (4.20-5.40); White Blood Cell (WBC) Count 19.9 thou/uL (4.8-10.8)
[2018-07-11 07:35] LABS: ALT (SGPT) Less than 7 U/L (8-55); AST (SGOT) 14 U/L (5-34); Albumin 2.9 g/dL (3.4-4.8); Alkaline Phosphatase 71 U/L (40-150); Anion Gap 12 mmol/L (10-20); BUN (Urea Nitrogen) 14 mg/dL (9.8-20.1); Bilirubin, Total 0.6 mg/dL (0.2-1.2); Calc. Creatinine Clearance 79 mL/min (70-130); Calcium 9.3 mg/dL (7.8-10.44); Carbon Dioxide 30 mmol/L (23-31); Chloride 96 mmol/L (98-107); Estimated GFR-MDRD Greater than 90; Globulin 3.1 g/dL (2.4-3.5); Glucose 141 mg/dL (83-110); Magnesium 1.6 mg/dL (1.6-2.6); Phosphorus 2.7 mg/dL (2.3-4.7); Potassium 3.6 mmol/L (3.5-5.1); Sodium 134 mmol/L (136-145)
[2018-07-11] MEDS ORDERED: Acetaminophen 1,000 MG in Premix Bag 1 BAG IVPB PRN ×2 (08:30→10:20)
[2018-07-11] MEDS ORDERED: Fentanyl 100 MCG/2 ML VIAL SLOW IVP SCH (08:45)
[2018-07-11] MEDS ORDERED: Acetaminophen 650 MG Suppository PR PRN (09:44)
[2018-07-11] MEDS ORDERED: Iopamidol 370 76% 100 ML VIAL ONE (10:11)
[2018-07-11] MEDS ORDERED: Iopamidol 370 76% 50 ML VIAL FS ONE (10:11)
[2018-07-11] MEDS ORDERED: Digoxin 0.5 MG/2 ML AMP SLOW IVP SCH (11:00)
[2018-07-11] MEDS ORDERED: Digoxin 0.5 MG/2 ML AMP ONE (11:04)
--- NOTE | 2018-07-11 11:12 | PDOC.CTH ---
Cardiology Progress Note - Subjective EP PROGRESS NOTE: 07/11/18 Seen as follow up for for atrial flutter despite sotalol. Poor rate control that is worsened by acute pain today. Feels poorly. No new cardiac concerns. - Objective Vital Signs Temp Pulse Resp BP BP Pulse Ox 07/11/18 08:35 98.6 F 122 H 18 146/86 H 97 07/11/18 04:00 98.8 F 141 H 19 146/65 H 96 07/11/18 00:06 84 188/77 H 07/10/18 23:41 99.6 F 84 13 185/79 H 97 Weight 144 lb 8 oz 07/10/18 07/11/18 07/12/18 06:59 06:59 06:59 Intake Total 180 1380 Output Total 300 1150 Balance -120 230 - Physical Examination General/Neuro: alert & oriented x3, NAD (pain) Neck: carotid US brisk, no JVD present Lungs: CTA, unlabored respirations Heart: PMI normal - Telemetry Telemetry Rhythm: atrial flutter with RVR - Labs Result Diagrams: 07/11/18 06:30 07/11/18 06:30 Troponin/CKMB Troponin I 0.068 ng/mL (< 0.028) H 07/04/18 15:33 - Assessment/Plan 1. Atypical atrial flutter - recurrent despite CV yesterday - likely provoked by recent spinal surgery/diskectomy - Increased sotalol to 120mg BID on 07/09. QTc unchanged on 07/10. Pt may not be able to keep down po meds due to ileus and N/V. - continue sotalol with 12 lead EKG 2 hrs after every dose. - watchman in place, no need for OAC 2. Dual chamber PPM - normal operation 3. COPD 4. Diastolic heart failure, chronic 5. Herniated disk -s/p diskectomy - pain 6. possible illeus: NG tube on suction Continue sotalol PO and rate control until acute medical issues are resolved. May repeat CV then, once pt reliable able to take sotalol. IV sotalol not available here. Recommend pain management, possibly IV tylenol short term. Pain control will assist with rate control. Awaiting 12 lead EKG this AM.
[2018-07-11] MEDS: Sotalol HCl 80 MG TAB PO SCH ×2 (11:23→21:05)
[2018-07-11] MEDS: Metoprolol Tartrate 100 MG TAB PO SCH ×2 (11:24→21:05)
[2018-07-11] MEDS: cloNIDine 0.3 MG TAB PO SCH ×3 (11:25→21:04)
[2018-07-11] MEDS: Lisinopril 20 MG TAB PO SCH ×2 (11:30→21:05)
[2018-07-11] MEDS: predniSONE 5 MG TAB PO SCH (11:36)
[2018-07-11] MEDS: Rosuvastatin 10 MG TAB PO SCH (11:37)
[2018-07-11] MEDS: Ondansetron PF 4 MG/2 ML Vial SLOW IVP PRN (11:47)
[2018-07-11] MEDS: D5 1/2 NS w/20 mEq KCL 1,000 ML IV SCH (12:24)
[2018-07-11] MEDS: Multivitamin W/ Minerals 1 TAB PO SCH (12:38)
--- NOTE | 2018-07-11 12:44 | PDOC.CTH ---
Cardiology Progress Note - Subjective The pt seen and examined. No overnight events. No cardiac complaints. - Objective Vital Signs Temp Pulse Resp BP BP Pulse Ox 07/11/18 11:30 235/102 H 07/11/18 11:25 235/102 H 07/11/18 11:23 108 H 235/102 H 07/11/18 11:10 123 H 07/11/18 08:35 98.6 F 122 H 18 146/86 H 97 07/11/18 04:00 98.8 F 141 H 19 146/65 H 96 Admit Weight 140 lb Weight 144 lb 8 oz 07/10/18 07/11/18 07/12/18 06:59 06:59 06:59 Intake Total 180 1380 Output Total 300 1150 Balance -120 230 - Labs Result Diagrams: 07/11/18 06:30 07/11/18 06:30 Troponin/CKMB Troponin I 0.068 ng/mL (< 0.028) H 07/04/18 15:33 - Assessment/Plan 1. 2:1 Aflutter/Afib with RVR with s/p DCCV on 07/10/2018 - Converted back to Afib with RVR around 0100 on 07/11/2018; cannot take PO med due to Ilius; On Lovenox 30mg qd since she has Watchman's device. cardioversion this AM. 1 attempt at 200j -> NSR. AP/VS..AP/NURSES SUPERINTENDENT. 2. HNP (herniated nucleus pulposus with myelopathy), thoracic on 07/04/2018 3. HTN - start Vasotec 2.5mg q6 hrs and Clonidin 0.3mg patch from today. 4. Chronic diastolic HF (grade III with Echo in 05/2017) - stable with Lasix 40mg po qd, metoprolol and lisinopril 5. COPD - stable with RA 6. Hyperlipidemia - on Statin 7. Hypothyroidism - on medication 8. Sjogren's syndrome - on Prednisone 9. IBS - stable MAR reviewed Pt. seen and eval. by me.She is uncomfortable with leg and abd. pain. NG tube in place. She remains in atrial fib. Appreciate assistance from EP. I agree with the A/P by the CRANE MANAGER. She has a multitude of medical problems that are chronic. Chest : decreased BS throughout.outI. Irreg,irreg. trace edema. Minimal BS HTN may be some degree of rebound from holding the clonidine. Add clonidine patch and IV Vasotec as needed.
[2018-07-11] MEDS ORDERED: cloNIDine 0.3mg/24 Hour PATCH TD SCH (13:00)
[2018-07-11] MEDS: Polyethylene Glycol 3350 17 GM Packet PO SCH (13:07)
[2018-07-11] MEDS: Saccharomyces boulardii 250 MG CAP PO SCH (13:07)
[2018-07-11] MEDS: Enoxaparin Sodium 30 MG/0.3 ML SYRINGE SC SCH (13:25)
--- NOTE | 2018-07-11 15:55 | PRG ---
DATE OF SERVICE: 07/11/2018 SUBJECTIVE: Ms. Carrera is a 77-year-old woman with history of multiple abdominal operations. The patient is postoperative day #8 status post thoracolumbar spinal instrumentation. She has developed abdominal distention and pain associated with no bowel movement over the last several days. Nasogastric tube was placed yesterday returning almost a liter of bilious succus entericus. The patient has not passed any flatus since yesterday. She reports significant abdominal pain today. OBJECTIVE: VITAL SIGNS: Today include blood pressure 144/61, pulse is 108, respiratory rate is 18, temperature 98.6 degrees Fahrenheit, oxygen saturation is 97% on 2 L by nasal cannula oxygen. HEENT: Pupils are equal, round, and reactive to light and accommodation. She has no jugular venous distention noted. HEART: Reveals regular rate and rhythm. LUNGS: Clear to auscultation bilaterally. Breathing, regular and unlabored. ABDOMEN: Soft and distended with diffuse tenderness to palpation. She has gross rebound tenderness to palpation. Bowel sounds are hypoactive in all 4 quadrants. EXTREMITIES: Reveal 2+ radial and pedal pulses bilaterally. NEUROLOGIC: Reveals no focal deficits present. LABORATORY FINDINGS: Today include CBC with 19,900 white blood cells, hemoglobin and hematocrit 10.3 and 33.4 respectively, and platelet count is 347,000. Metabolic profile; sodium 134, potassium 3.6, chloride is 96, bicarb is 30, BUN 14, creatinine 0.62, glucose is 141, magnesium is 1.6, and phosphorus is 2.7. IMPRESSION: 1. Postoperative day #8 status post thoracolumbar spinal instrumentation. 2. Acute abdominal pain secondary to adynamic ileus versus acute small bowel obstruction. PLAN: We will obtain a CT scan of the abdomen and pelvis to evaluate the abdominal pain and rule out any acute small bowel obstruction or any intra-abdominal process, that warrants surgical intervention. Above findings and plan were discussed with the patient, who indicates understanding of information given. I have answered her questions. Job ID: [id number] [facility]
--- NOTE | 2018-07-11 17:05 | CT ---
CT ABDOMEN WITH CONTRAST: CT PELVIS WITH CONTRAST: HISTORY: Abdominal pain. Evaluate for bowel obstruction. COMPARISON: 12/12/2017 FINDINGS: ABDOMEN: Small bilateral effusions with adjacent consolidation due to atelectasis or pneumonia. Hea rt size is within normal limits. No pericardial effusion. The descending thoracic aorta and abdomin al aorta demonstrate atherosclerotic disease. No periaortic fat stranding. The gallbladder is surgi amira absent. The portal vein is patent. The liver, spleen, pancreas, and adrenal glands have appropriate enhancement. No gastrohepatic, retrocrural, or periportal lymphadenopathy. Symmetric enhancement of the kidneys. Bilaterally, no obstructive uropathy. No mesenteric mass, lymphadenopathy, or free air. There is infected fluid with peripheral enhancemen t in the left paracolic gutter. There are two separate collections present. The smaller collection measures 1.9 x 3.8 cm. The larger collection measures 3.5 x 3.7 cm. There are multiple contrast-filled small bowel loops with associated distention. There is concern fo r a partial/early obstructive process, as these loops predominantly involve the jejunum and proximal to mid ileum. The distal ileum is decompressed. There is scattered fecal material in a nondistended , nondilated colon. There is mucosal thickening involving the left hemicolon, with pericolonic fat s tranding. As mentioned above, there is evidence of an infected fluid collection adjacent to the desc ending colon, likely due to diverticulitis. Extensive diverticula in the left hemicolon are noted. PELVIS: Distended urinary bladder. Encourage spontaneous voiding. No pelvic mass, lymphadenopathy, free air, or free fluid. No lytic or blastic lesions in the osseous structures. There is previous vertebroplasty change in th e distal thoracic spine and lumbar spine. IMPRESSION: 1. Two separate infected fluid collections in the left hemiabdomen, paracolic gutter. 2. Early/partial small bowel obstruction versus developing ileus. The results of the study were discussed with Dr. Fish on 07/11/2018 at 4:09 p.m. CODE BRENNAN POS: ARNAV
[2018-07-11 17:06] LABS: Manual Diff?? YES
[2018-07-11 17:07] LABS: Band 5 % (5-11); Lymphocytes 15 % (21-51); MDiff Complete? YES; Monocytes 3 % (0-10); Myelocyte 1 % (0-0); Neutrophil 76 % (42-75)
[2018-07-11 17:09] LABS: Anisocytosis SLIGHT = 6-15 cells (100X) (0-5/hpf); Hypochromia SLIGHT = 6-15 cells (100X) (0-5/hpf); Ovalocytes SLIGHT = 2-5 cells (100X) (0-1/hpf); Platelet Morphology Comment Appears Adequate; Polychromasia SLIGHT = 2-3 cells (100X) (0-2/hpf); Tear Drops SLIGHT = 2-5 cells (100X) (0-1/hpf)
[2018-07-11] MEDS: Bisacodyl 10 MG SUPP PR SCH (17:59)
[2018-07-11] MEDS: Digoxin 0.5 MG/2 ML AMP SLOW IVP SCH ×2 (18:07→23:05)
[2018-07-11] MEDS: Piperacillin/Tazobactam 3.375 GM in Sodium Chloride 0.9% 100 ML IVPB SCH (18:13)
--- NOTE | 2018-07-11 20:17 | PRG ---
DATE OF SERVICE: 07/11/2018 SUBJECTIVE: Arabella Carrera has an NG tube in place. She is scheduled for CT of her abdomen and pelvis today. She is going down for a CT when I saw her. Contrast is being instilled into her NG tube. OBJECTIVE: VITAL SIGNS: Heart rates in the 70s. She is still extremely hypertensive at times up to 235/102 this morning, 160/69 this afternoon. Intake and outputs recorded is negative 120. Only 300 mL of urine was reported. No gastric drainage is recorded; although, there was NG drainage in the canister. LUNGS: Clear. HEART: Regular rhythm. ABDOMEN: Soft and still diffusely mildly tender. EXTREMITIES: Without edema or asymmetry. LABORATORY DATA: White count 19.9, hemoglobin 10.3, platelets 347. Sodium 134, potassium 3.6, chloride 96, bicarb 30, BUN 14, and creatinine 0.62. Abdominal CT shows fluid collections in the left half of the abdomen and paracolic gutter. The radiologist interpreted them as infected fluid collections. An ileus versus an early small-bowel obstruction was reported. IMPRESSION: 1. Asthmatic bronchitis, clinically stable. 2. Extreme deconditioning. 3. Abnormal abdominal CT scan, followed by General Surgery. PLAN: We will continue to follow. From a pulmonary standpoint, she is stable at this time, but obviously there are major concerns with her abdomen. Job ID: [id number]
[2018-07-11] MEDS: Acetaminophen 650 MG/20.3 ML UDCUP PO PRN (21:17)
--- NOTE | 2018-07-11 21:39 | OP ---
DATE OF PROCEDURE: 07/10/18 INDICATION FOR PROCEDURE: This is an 77-year-old female with history of atrial fibrillation. She has been on medications. She h as had ablations in the past. She has a pacemaker insertion. She is postsurgical procedure and develo ped atrial fibrillation again. It has been difficult to control by medical management. We have increa sed the dose of her Sotalol and she was advised to undergo electrocardioversion of her atrial fibrill ation back to sinus rhythm. She was taken to the Recovery area where she underwent short acting propofol and using one attempt at 200 joules, she was successfully converted back to normal sinus rhythm. There were no complications or difficulties encountered.
--- NOTE | 2018-07-11 21:46 | PDOC.PN ---
- Subjective Encounter Start Date: 07/11/18 Encounter Start Time: 13:00 Patient seen and examined for N/Abd pain and other medical issues. NPO. Feels gen weak. No overnight events - Objective Resuscitation Status - Order Detail: 07/01/18 09:58 Resuscitation Status Routine Resuscitation Status: PRTL: Chem-Intubation Discussed with: Patient Additional comments: Cardioversion also ok. No compressions. MAR Reviewed: Yes Vital Signs & Weight: Vital Signs (12 hours) Temp Pulse Resp BP BP Pulse Ox 07/11/18 21:05 75 167/70 H 07/11/18 21:04 167/70 H 07/11/18 20:00 98.6 F 75 20 174/72 H 98 07/11/18 18:15 160/69 H 07/11/18 18:07 78 07/11/18 16:02 98.2 F 75 17 129/61 98 07/11/18 14:04 144/61 H 07/11/18 12:15 97.9 F 116 H 17 179/68 H 97 07/11/18 11:30 235/102 H 07/11/18 11:25 235/102 H 07/11/18 11:23 108 H 235/102 H 07/11/18 11:10 123 H Weight Admit Weight 140 lb Weight 144 lb 8 oz Most Recent Monitor Data Heart Rate from ECG 71 NIBP 139/49 NIBP BP-Mean 79 Respiration from ECG 19 SpO2 92 I&O: 07/10/18 07/11/18 07/12/18 06:59 06:59 06:59 Intake Total 180 1380 Output Total 300 1150 Balance -120 230 Result Diagrams: 07/14/18 05:30 07/14/18 03:30 EKG Reviewed by me: Yes (Tele Afib/flutter) Phys Exam - Physical Examination Constitutional: NAD Respiratory: no wheezing, no rhonchi Cardiovascular: no rub, irregular Gastrointestinal: soft hypoactive BS, LLQ tend, no rebound Musculoskeletal: no edema Neurological: moves all 4 limbs Dx/Plan - Plan DVT proph w/lovenox, DVT proph w/SCDs 1. Lumbar radiculopathy, status post laminectomy. 2. Atrial flutter/atrial fibrillation with rapid ventricular response. 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 3. Ileus vs SBO 4. Chronic diastolic heart failure. 5. Chronic obstructive pulmonary disease. 6. Sjogren syndrome, on chronic steroids. 7. Hypothyroidism. 8. Constipation. 9. Irritable bowel syndrome. 10. Hypertension/Hyperlipidemia. 11. Diverticulosis. 12. Hypokalemia/hypomagnesemia/hypophosphatemia 13. Elevated troponin secondary to demand ischemia. 14. Hyponatremia. 15. Chronic anemia. 16. Leukocytosis, unlikely to be infectious. PLAN: Gen surg/GI evaluating - CT abd today DC Ancef - I confirmed with Neurosurgery On Cardizem drip per Cardiology on Sotalol Cont other meds as below AM labs Review of Systems - Review of Systems Respiratory: negative: Cough, Dry, Shortness of Breath, Hemoptysis, SOB with Excertion, Pleuritic Pain, Sputum, Wheezing Cardiovascular: negative: chest pain, palpitations, orthopnea, paroxysmal nocturnal dyspnea, edema, light headedness, other - Medications/Allergies Allergies/Adverse Reactions: Allergies Allergy/AdvReac Type Severity Reaction Status Date / Time adhesive tape Allergy Verified 07/07/18 01:18 amlodipine Allergy "swelled Verified 10/20/17 14:12 in feet and legs" Medications: Current Medications Acetaminophen (Tylenol Elixir) 1,000 mg PO Q6H PRN PRN Reason: Mild Pain (1-3) Last Admin: 07/11/18 21:17 Dose: 1,000 mg Acetaminophen (Tylenol) 1,000 mg SC Q6H PRN PRN Reason: Mild Pain (1-3) Albuterol Sulfate (Ventolin) 2.5 mg NEB [id number] PRN PRN Reason: Wheezing Bisacodyl (Dulcolax) 10 mg SC DAILY [facility] Last Admin: 07/11/18 17:59 Dose: Not Given Clonidine (Catapres) 0.3 mg PO TID [facility] Last Admin: 07/11/18 21:04 Dose: Not Given Clonidine (Catapres) 0.1 mg PO Q4H PRN PRN Reason: Systolic BP > 180 Clonidine (Tcafmqvd-Awi-4) 0.3 mg TD Q7D [facility] Last Admin: 07/11/18 14:10 Dose: 0.3 mg Cyclobenzaprine HCl (Flexeril) 5 mg PO Q8H PRN PRN Reason: Muscle Spasm/PAIN Last Admin: 07/08/18 08:47 Dose: 5 mg Digoxin (Lanoxin) 0.25 mg SLOW IVP 1700,2300 [facility] Stop: 07/11/18 23:01 Last Admin: 07/11/18 18:07 Dose: 0.25 mg Digoxin (Lanoxin) 0.125 mg PO DAILY [facility] Enalaprilat (Vasotec) 2.5 mg SLOW IVP Q6HR [facility] Last Admin: 07/11/18 18:15 Dose: 2.5 mg Enoxaparin Sodium (Lovenox) 30 mg SC 0900 [facility] Last Admin: 07/11/18 13:25 Dose: Not Given Hydralazine HCl (Apresoline) 10 mg SLOW IVP Q4H PRN PRN Reason: SBP>160 DBP>100 Last Admin: 07/11/18 00:06 Dose: 10 mg Potassium Chloride/Dextrose/Sod Cl (D5 1/2 Ns W/20 Meq Kcl) 1,000 mls @ 50 mls/ hr IV .Q20H [facility] Last Admin: 07/11/18 12:24 Dose: 1,000 mls Acetaminophen 1,000 mg/ Device 100 mls @ 400 mls/hr IVPB Q6H PRN PRN Reason: Mild Pain (1-3) Stop: 07/12/18 10:21 Diltiazem HCl 125 mg/Miscellaneous Medication 1 each/ Sodium Chloride 125 mls @ 10 mls/hr IVPB INF [facility]; Protocol Last Admin: 07/11/18 16:09 Dose: 125 mls Piperacillin Sod/Tazobactam (Sod 3.375 gm/ Sodium Chloride) 100 mls @ 200 mls/ hr IVPB Q6HR [facility] Last Admin: 07/11/18 18:13 Dose: 100 mls Iron/Minerals/Multivitamins (Theragran M) 1 tab PO DAILY [facility] Last Admin: 07/11/18 12:38 Dose: Not Given Isosorbide Mononitrate (Imdur Er) 30 mg PO BID [facility] Last Admin: 07/11/18 21:05 Dose: 30 mg Labetalol HCl (Normodyne) 10 mg SLOW IVP Q4H PRN PRN Reason: Systolic BP > 180 Lisinopril (Zestril) 20 mg PO BID [facility] Last Admin: 07/11/18 21:05 Dose: 20 mg Magnesium Hydroxide (Milk Of Magnesium) 30 ml PO Q6H PRN PRN Reason: Constipation Last Admin: 07/08/18 17:03 Dose: 30 ml Metoprolol Tartrate (Lopressor) 100 mg PO BID [facility] Last Admin: 07/11/18 21:05 Dose: 100 mg Mineral Oil/White Petrolatum (Eucerin Cream) 0 gm TOP BIDPRN PRN PRN Reason: Dry Skin Nitroglycerin (Nitrostat) 0.4 mg SL Q5MIN PRN PRN Reason: Chest Pain Ondansetron HCl (Zofran) 4 mg SLOW IVP Q6H PRN PRN Reason: Nausea/Vomiting Last Admin: 07/11/18 11:47 Dose: 4 mg Pantoprazole Sodium (Protonix) 40 mg PO DAILY [facility] Last Admin: 07/11/18 12:37 Dose: Not Given Polyethylene Glycol (Miralax) 17 gm PO DAILY [facility] Last Admin: 07/11/18 13:07 Dose: Not Given Prednisone (Prednisone) 15 mg PO QAM-WM [facility] Last Admin: 07/11/18 11:36 Dose: 15 mg Pregabalin (Lyrica) 25 mg PO Q8HR [facility] Last Admin: 07/11/18 21:29 Dose: 25 mg Promethazine HCl (Phenergan) 12.5 mg IVPB Q6H PRN PRN Reason: Nausea/Vomiting Last Admin: 07/10/18 15:11 Dose: 12.5 mg Rosuvastatin Calcium (Crestor) 10 mg PO DAILY [facility] Last Admin: 07/11/18 11:37 Dose: 10 mg Saccharomyces Boulardii (Florastor) 250 mg PO DAILY [facility] Last Admin: 07/11/18 13:07 Dose: Not Given Sodium Chloride (Flush - Normal Saline) 10 ml IVF Q12HR [facility] Last Admin: 07/11/18 21:05 Dose: 10 ml Sodium Chloride (Flush - Normal Saline) 10 ml IVF PRN PRN PRN Reason: Saline Flush Last Admin: 07/11/18 18:08 Dose: 10 ml Sodium Chloride (Normal Saline Pf) 10 ml FS PRN PRN PRN Reason: RECONSTITUTION Sotalol HCl (Betapace) 120 mg PO BID [facility] Last Admin: 07/11/18 21:05 Dose: 120 mg Thyroid ([place] Thyroid) 60 mg PO 0600 [facility] Last Admin: 07/11/18 05:39 Dose: 60 mg
--- NOTE | 2018-07-11 23:54 | PRG ---
DATE OF SERVICE: SUBJECTIVE: Ms. Carrera has an NG tube in now. She is without complaints. There is no vomiting, but does have nausea. Nurses note showed 900 mL of output in her NG tube. OBJECTIVE: VITAL SIGNS: Pulse 108 to 116, temperature is 97.6, blood pressure 179/68. She is resting comfortably in bed, has NG tube in place. ABDOMEN: Slightly protuberant, soft. No bowel sounds. No masses or tenderness are noted. EXTREMITIES: No clubbing, cyanosis, or edema. LABORATORY DATA: White count 19,900, hemoglobin 10.3, and platelet count 347. MCV is 83, 80% segs, no bands. Sodium 134, potassium 3.6, chloride 96, BUN and creatinine are 14 and 0.62, glucose 144. Liver function tests normal. CRP 26. ASSESSMENT: 1. Postoperative day #8 status post thoracolumbar spinal instrumentation secondary to disk rupture. 2. Acute abdominal pain, nausea, vomiting, suspect to be related to ileus and pain medicines versus bowel obstruction. CAT scan is pending. If this shows no obstruction, we will start Movantik counteract to narcotic effect. 3. Leukocytosis of unclear etiology. Job ID: [id number]
[2018-07-11] MEDS ORDERED: Enalaprilat Dihydrate 1.25 MG/ML VIAL SLOW IVP SCH (23:59)
[2018-07-12] MEDS: Ondansetron PF 4 MG/2 ML Vial SLOW IVP PRN ×2 (00:21→14:14)
[2018-07-12] MEDS: Cyclobenzaprine 10 MG TAB PO PRN ×2 (00:21→22:46)
[2018-07-12] MEDS: Piperacillin/Tazobactam 3.375 GM in Sodium Chloride 0.9% 100 ML IVPB SCH ×5 (00:21→23:02)
[2018-07-12] MEDS ORDERED: Pantoprazole 40 MG VIAL IVP SCH (02:15)
[2018-07-12] MEDS: Promethazine HCl 25 MG/ML VIAL IVPB PRN ×2 (02:25→19:35)
[2018-07-12] MEDS: hydrALAZINE 20 MG/ML VIAL SLOW IVP PRN (04:40)
[2018-07-12 06:15] LABS: ALT (SGPT) Less than 7 U/L (8-55); AST (SGOT) 15 U/L (5-34); Alkaline Phosphatase 77 U/L (40-150); Anion Gap 14 mmol/L (10-20); BUN (Urea Nitrogen) 11 mg/dL (9.8-20.1); Bilirubin, Total 0.7 mg/dL (0.2-1.2); Calc. Creatinine Clearance 79 mL/min (70-130); Calcium 9.2 mg/dL (7.8-10.44); Carbon Dioxide 28 mmol/L (23-31); Chloride 89 mmol/L (98-107); Estimated GFR-MDRD Greater than 90; Globulin 3.2 g/dL (2.4-3.5); Glucose 125 mg/dL (83-110); Magnesium 1.5 mg/dL (1.6-2.6); Phosphorus 2.4 mg/dL (2.3-4.7); Potassium 3.8 mmol/L (3.5-5.1); Protein, Total 6.2 g/dL (6.0-8.3); Sodium 127 mmol/L (136-145)
[2018-07-12 06:19] LABS: Hemoglobin 10.2 g/dL (12.0-16.0); Hypochromia SLIGHT = 6-15 cells (100X) (0-5/hpf); Lymphocytes 6 % (21-51); MDiff Complete? YES; Mean Corpuscular HGB CONC 31.2 g/dL (32.0-36.0); Mean Corpuscular Hemoglobin 26.1 pg (27.0-31.0); Mean Corpuscular Volume 83.7 fL (78.0-98.0); Monocytes 9 % (0-10); Neutrophil 85 % (42-75); Platelet Count 394 thou/uL (130-400); Platelet Morphology Comment Appears Adequate; RBC Distribution Width 16.6 % (11.5-14.5); Red Blood Cell (RBC) Count 3.92 mill/uL (4.20-5.40); White Blood Cell (WBC) Count 20.3 thou/uL (4.8-10.8)
[2018-07-12] MEDS ORDERED: Lisinopril 20 MG TAB PO SCH ×2 (06:42→09:00)
[2018-07-12] MEDS ORDERED: cloNIDine 0.3 MG TAB PO SCH ×3 (06:42→09:00)
--- NOTE | 2018-07-12 08:40 | PDOC.CTH ---
Cardiology Progress Note - Subjective The pt seen and examined. Severe ABD pain. per RN, the NG tube is not working properly. - Objective Vital Signs Temp Pulse Resp BP BP BP Pulse Ox 07/12/18 07:50 97.9 F 99 18 181/81 H 96 07/12/18 05:37 158/69 H 07/12/18 04:40 84 199/82 H 07/12/18 04:00 98.3 F 84 18 199/82 H 97 07/12/18 00:20 154/64 H 07/11/18 23:05 75 07/11/18 21:05 75 167/70 H 07/11/18 21:04 167/70 H Admit Weight 140 lb Weight 144 lb 8 oz 07/11/18 07/12/18 07/13/18 06:59 06:59 06:59 Intake Total 1380 2490 Output Total 1150 1230 Balance 230 1260 - Physical Examination General/Neuro: alert & oriented x3 Neck: no JVD present Lungs: other: (diminished at bases) Heart: other: (irregular) Abdomen: soft Extremities: other: (No edema) - Telemetry Telemetry Rhythm: Afib 60-80s; V paced - Labs Result Diagrams: 07/12/18 04:53 07/12/18 04:53 Troponin/CKMB Troponin I 0.068 ng/mL (< 0.028) H 07/04/18 15:33 - Assessment/Plan 1. 2:1 Aflutter/Afib with RVR with s/p DCCV on 07/10/2018 - Converted back to Afib with RVR around 0100 on 07/11/2018; cannot take PO med due to Ilius vs SBO ; On Diltiazem 15mg/h, Digioxin IV, and Lovenox 30mg qd since she has Watchman' s device. 2. HNP (herniated nucleus pulposus with myelopathy), thoracic on 07/04/2018 3. HTN - On Vasotec 2.5mg q6 hrs and Clonidin 0.3mg patch q 7 days; increase Diltiazem to 15mg/h; 4. Chronic diastolic HF (grade III with Echo in 05/2017) - unable to tolerate Lasix 40mg po qd, metoprolol and lisinopril 5. COPD - on 2LNC 6. Hyperlipidemia - on Statin which is on hold 7. Hypothyroidism - on medication 8. Sjogren's syndrome - on Prednisone 9. IBS - stable MAR reviewed Pt. seen and eval. by me. She is recently back up from the OR after abd. drains were placed. They are draining purulent material. She remains in Afib but the rate is controlled. Chest clear anteriorly. irreg/ireg. occasionally pacing. No edema. i agree with the remainder of the A/P by the BROKER ASSOCIATE. Review of Systems - Review of Systems Constitutional: reports: see HPI
[2018-07-12] MEDS: D5 1/2 NS w/20 mEq KCL 1,000 ML IV SCH ×2 (08:41→13:32)
[2018-07-12] MEDS ORDERED: hydrALAZINE 20 MG/ML VIAL SLOW IVP PRN (08:42)
[2018-07-12 08:45] LABS: INR-International Normal Ratio 1.1; PTT 35.1 SEC (22.9-36.1); Prothrombin Time 14.7 SEC (12.0-14.7)
[2018-07-12] MEDS ORDERED: Metoprolol Tartrate 100 MG TAB PO SCH (08:45)
[2018-07-12] MEDS ORDERED: Sotalol HCl 80 MG TAB PO SCH (08:45)
[2018-07-12] MEDS ORDERED: Digoxin 0.125 MG TAB PO SCH (09:00)
[2018-07-12] MEDS ORDERED: Magnesium Sulfate 4 GM in Sodium Chloride 0.9% 250 ML 250 ML IVPB SCH (09:00)
[2018-07-12] MEDS: Labetalol HCl 100 MG/20 ML VIAL SLOW IVP PRN ×2 (09:50→19:40)
[2018-07-12] MEDS: predniSONE 5 MG TAB PO SCH (09:51)
[2018-07-12] MEDS: cloNIDine 0.3 MG TAB PO SCH ×3 (09:51→20:33)
[2018-07-12] MEDS: Thyroid 60 MG TAB PO SCH (09:51)
[2018-07-12] MEDS: Pregabalin 25 MG CAP PO SCH ×3 (09:51→21:09)
[2018-07-12] MEDS: Lisinopril 20 MG TAB PO SCH ×2 (09:52→20:34)
[2018-07-12] MEDS: Multivitamin W/ Minerals 1 TAB PO SCH (09:52)
[2018-07-12] MEDS: Metoprolol Tartrate 100 MG TAB PO SCH ×2 (09:52→20:34)
[2018-07-12] MEDS: Enoxaparin Sodium 30 MG/0.3 ML SYRINGE SC SCH (09:52)
[2018-07-12] MEDS: Polyethylene Glycol 3350 17 GM Packet PO SCH (09:53)
[2018-07-12] MEDS: Rosuvastatin 10 MG TAB PO SCH (09:53)
[2018-07-12] MEDS: Sotalol HCl 80 MG TAB PO SCH ×2 (09:53→21:06)
[2018-07-12] MEDS: Saccharomyces boulardii 250 MG CAP PO SCH (09:53)
[2018-07-12] MEDS: Bisacodyl 10 MG SUPP PR SCH (10:13)
[2018-07-12] MEDS: Digoxin 0.5 MG/2 ML AMP SLOW IVP SCH (10:15)
[2018-07-12] MEDS: Sodium Chloride 0.9% (PF) 10 ML VIAL FS PRN (10:17)
[2018-07-12] MEDS: Pantoprazole 40 MG VIAL IVP SCH (10:17)
--- NOTE | 2018-07-12 11:36 | PRG ---
DATE OF SERVICE: 07/12/2018 SUBJECTIVE: Ms. Carrera is a 77-year-old woman with acute diverticulitis and diverticular abscess as well as new onset atrial fibrillation with rapid ventricular response. The patient was transferred to the intermediate care unit this morning with worsening abdominal pain. At the time of my evaluation, she reports of pain to have improved having received some intravenous analgesics. She denies any fevers or chills. She denies any nausea. The nasogastric tube appeared to be nonfunctional overnight. This morning, it has been cleared and is currently functional returning some bile tinged gastric effluent. OBJECTIVE: VITAL SIGNS: Her vital signs this morning include blood pressure 197/84, pulse 99, respiratory rate 18, temperature 97.9 degrees Fahrenheit, oxygen saturation is 96% on room air. HEART: Reveals regular rate and rhythm. LUNGS: Clear to auscultation bilaterally. ABDOMEN: Soft, moderately distended and tender to palpation with no significant gross rebound tenderness present. Bowel sounds in all 4 quadrants appear normoactive. LABORATORY FINDINGS: Today includes a CBC with 20,300 white blood cells, hemoglobin and hematocrit of 10.2 and 32.8 respectively. Platelet count is 294,000. Differential count is as follows, 85 segmented neutrophils, 6 lymphocytes, 9 monocytes. Metabolic profile; sodium 127, potassium is 3.8, chloride is 89, bicarb is 28, BUN 11, creatinine 0.62, glucose 125, phosphorus is 2.4, magnesium is 1.5. AST and ALT noted at 15 and less than 7 respectively. IMPRESSION: 1. Acute diverticulitis with diverticular abscess. 2. Worsening leukocytosis secondary to acute diverticulitis with diverticular abscess. 3. Essential hypertension. 4. Acute hypomagnesemia. 5. Acute hypophosphatemia. 6. Acute hypokalemia. 7. Acute hyponatremia. PLAN: 1. Correct abnormal electrolytes. 2. Continue with broad-spectrum antibiotic therapy. 3. The patient is scheduled for percutaneous drainage of the diverticular abscess today per interventional Radiology. I have also spoken to Dr. Alfonso who had previously treated Ms. Carrera for perforated diverticulitis. 4. Dr. Alfonso will be seeing Ms. Carrera and may in fact assume surgical care thereafter. Discussed above with the patient and her at bedside. 5. They both indicated understanding of information given. 6. I have answered their questions. Job ID: [id number] [facility], [place]
[2018-07-12] MEDS ORDERED: Midazolam HCl 2 mg/2 ml Vial ONE (11:44)
[2018-07-12] MEDS ORDERED: Fentanyl 100 MCG/2 ML VIAL ONE (11:44)
[2018-07-12] MEDS ORDERED: Sodium Bicarbonate 2.5 MEQ/5 ML VIAL ONE (11:44)
--- NOTE | 2018-07-12 15:38 | CT ---
CT GUIDED LEFT DESCENDING COLON PERICOLONIC ABSCESS ASPIRATION CT GUIDED LEFT SIGMOID COLON PERICOLONIC ABSCESS DRAINAGE CATHETER PLACEMENT: TECHNIQUE: Informed consent was obtained. Preprocedure CT evaluation was performed for guidance purposes only. The fluid collections that were previously seen on the CT of the abdomen and pelvis dated 07/11/2018 w ere localized on the patient's left lower quadrant abdomen. The patient underwent conscious sedation under guidance of the radiology nurse. The patient received 50 mcg of IV Fentanyl and 1 mg of IV Versed. Initial attention was placed to the fluid collection along the lateral aspect of the descending colon . The site overlying this region was sterilely prepped and draped. Buffered 1% Lidocaine was admini stered to the overlying subcutaneous tissues. Under CT fluoroscopic guidance, a 5 [place] [employer] cathet er was guided down to the collection. There was removal of 5 cc of purulent material. This material was sent to pathology for further evaluation. Attention was then placed to the large pericolonic fluid collection seen adjacent to the sigmoid colo n within the left lower quadrant of the abdomen. The site overlying this region was prepped and drap ed in the usual sterile fashion. Buffered 1% Lidocaine was administered to the overlying subcutaneou s tissues. Under CT fluoroscopic guidance, an Accu-Check kit was utilized to gain access to the flui d collection. An 0.035 Amplatz wire was then guided through the set. An 8 [place]e drainage catheter was then put within the collection. There was removal of 30 cc of purulent material from the collect ion. This catheter was sewn to the patient's skin utilizing 0 silk. The patient tolerated both proc edures without difficulty. IMPRESSION: 1. Successful CT-guided aspiration of the left descending colon pericolonic abscess with removal of 5 cc of purulent material. 2. Successful CT-guided percutaneous drainage catheter placement within the left lower quadrant of t he abdomen adjacent to the sigmoid colon. There was removal of 30 cc of purulent material. POS: [facility]
--- NOTE | 2018-07-12 15:44 | PRG ---
DATE OF SERVICE: 07/12/2018 Ms. Carrera is now postoperative day #9, having undergone multilevel thoracic and lumbar laminectomy. In regard to her back surgery, the patient states her back pain has slightly improved and her left lower extremity symptoms have marginally if not moderately improved. She is dealing with a possible small-bowel obstruction versus postoperative ileus perhaps an NG tube in place. She is rather uncomfortable in regard to this, but states that this has happened to her in the past. Otherwise, she has not been walking as she has been having difficulty with her bowel obstruction. She did undergo cardiac procedure and her tachycardia for the most part is improved since. Her incisions are covered with clean and dry dressings when this is uncovered. The incisions are clean and dry without signs of dehiscence or drainage. They are healing rather well. She remains with good strength in the bilateral lower extremities and my exam improved movement in the left leg as her pain is under better control. We will continue to monitor the patient, but she remains with multiple other medical issues that need resolution. Job ID: [id number]
[2018-07-12] MEDS: Diltiazem HCl 125 MG, Admixture Fee 1 EACH in Sodium Chloride 0.9% 100 ML IVPB SCH (16:16)
[2018-07-12] MEDS: Fentanyl 100 MCG/2 ML VIAL SLOW IVP PRN ×2 (17:45→23:54)
--- NOTE | 2018-07-12 18:05 | PRG ---
DATE OF SERVICE: 07/12/2018 SUBJECTIVE: Arabella Carrera was taken down to special procedures to have two percutaneous drains placed in her abdomen. I saw her when she came back. OBJECTIVE: GENERAL: She is in no distress. VITAL SIGNS: She is afebrile, heart rate 75, blood pressure 170/61, respiratory rate 20s. LUNGS: Essentially unchanged. HEART: Essentially unchanged. ABDOMEN: Essentially unchanged. IMPRESSION: 1. Steroid dependence, probably masking her abdominal symptoms. 2. Asthmatic bronchitis, it is clinically stable. 3. Extremely poor physical conditioning. 4. Status post abscess drainage. PLAN: Hopefully, she will not require any type of surgical procedure. I met with the and answered all of his questions. Job ID: [id number]
--- NOTE | 2018-07-12 19:08 | PRG ---
DATE OF SERVICE: 07/12/2018 SUBJECTIVE: Temperature 97.9, blood pressure is 172/58, pulse is 57. Ms. Carrera states she feels better all over. She has requested Bentyl or Levsin for abdominal cramping. She had abscesses drained today. MEDICATIONS: 1. Tylenol. 2. Ventolin. 3. Dulcolax. 4. Catapres. 5. Flexeril. 6. Lanoxin. 7. Diltiazem. 8. Vasotec. 9. Lovenox 30 daily. 10. Fentanyl p.r.n. 11. Isosorbide mononitrate. 12. Labetalol. 13. Lisinopril. 14. Milk of magnesia. 15. Metoprolol. 16. Zofran. 17. Protonix. 18. Zosyn. 19. Prednisone 15 q.a.m., stress dose. 20. Crestor. 21. Florastor. 22. Betapace. 23. [place] Thyroid. PHYSICAL EXAMINATION: VITAL SIGNS: Temperature 97.9, blood pressure 132/58, and pulse 75. GENERAL: Her skin is frail and thin. She has a buffalo hump. HEENT: Oropharynx, no lesions. NECK: Supple. ABDOMEN: Nontender except for lower abdominal tenderness without rebound, but some slight guarding. LABORATORY DATA: White count is 20,000, hemoglobin is 10.6, and platelet count 394. Sodium 127, potassium 3.8, BUN and creatinine are 11 and 0.62. Magnesium 1.5. Phosphorus 2.4. Glucose 125. Albumin 3. ASSESSMENT: 1. Chronic steroid use with adrenal insufficiency, on stress dose steroids. 2. Complicated diverticulitis with abscesses status post drainage on IV antibiotics. 3. Asthmatic bronchitis, stable. 4. Poor physical condition. 5. Recent back surgery. 6. Pacemaker placement 2 months ago. PLAN: Continue IV antibiotics. We will give her some Levsin p.r.n. for cramping, so that can moderate her use of narcotics. We will follow along with you. Job ID: [id number]
[2018-07-12] MEDS: Hyoscyamine Sulfate SL 0.125 mg Tablet PO PRN (19:38)
--- NOTE | 2018-07-12 21:22 | PDOC.PN ---
- Subjective Encounter Start Date: 07/12/18 Encounter Start Time: 21:17 Patient seen and examined for Sepsis. s/p CT drainage of diverticular abscess. Feels gen weak. No overnight events - Objective Resuscitation Status - Order Detail: 07/01/18 09:58 Resuscitation Status Routine Resuscitation Status: PRTL: Chem-Intubation Discussed with: Patient Additional comments: Cardioversion also ok. No compressions. MAR Reviewed: Yes Vital Signs & Weight: Vital Signs (12 hours) Temp Pulse BP Pulse Ox 07/12/18 21:06 79 182/77 H 07/12/18 20:34 163/74 H 07/12/18 20:33 163/74 H 07/12/18 19:40 80 180/87 H 07/12/18 19:38 98.5 F 07/12/18 17:48 172/58 H 07/12/18 15:19 97.9 F 07/12/18 14:16 168/68 H 07/12/18 13:33 174/71 H 07/12/18 10:57 100 07/12/18 10:15 75 07/12/18 09:50 83 202/100 H Weight Admit Weight 140 lb Weight 144 lb 8 oz Most Recent Monitor Data Heart Rate from ECG 78 NIBP 178/75 NIBP BP-Mean 109 Respiration from ECG 12 SpO2 100 I&O: 07/11/18 07/12/18 07/13/18 06:59 06:59 06:59 Intake Total 1380 2490 1090 Output Total 1150 1230 1710 Balance 230 1260 -620 Result Diagrams: 07/14/18 05:30 07/14/18 03:30 EKG Reviewed by me: Yes (Tele Afib) Phys Exam - Physical Examination Ill appearing Respiratory: no wheezing, no rhonchi Dec AE at bases Cardiovascular: no rub, irregular Gastrointestinal: soft, non-tender, positive bowel sounds Neurological: moves all 4 limbs Dx/Plan - Plan DVT proph w/lovenox, DVT proph w/SCDs 1. Lumbar radiculopathy, status post laminectomy. 2. Atrial flutter/atrial fibrillation with rapid ventricular response. 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 on Cardizem drip 3. SBO with Complicated diverticulitis with abscess s/o drainage 07/12 4. Chronic diastolic heart failure. 5. Chronic obstructive pulmonary disease. 6. Sjogren syndrome, on chronic steroids. 7. Hypothyroidism. 8. Constipation. 9. Irritable bowel syndrome. 10. Hypertension/Hyperlipidemia. 11. Diverticulosis. 12. Hypokalemia/hypomagnesemia/hypophosphatemia 13. Elevated troponin secondary to demand ischemia. 14. Hyponatremia. 15. Chronic anemia. PLAN: Cont Zosyn Replace Magnesium On Cardizem drip on Sotalol/Metoprolol Cont other meds as below AM labs Review of Systems - Review of Systems Respiratory: negative: Cough, Dry, Shortness of Breath, Hemoptysis, SOB with Excertion, Pleuritic Pain, Sputum, Wheezing Cardiovascular: negative: chest pain, palpitations, orthopnea, paroxysmal nocturnal dyspnea, edema, light headedness, other - Medications/Allergies Allergies/Adverse Reactions: Allergies Allergy/AdvReac Type Severity Reaction Status Date / Time adhesive tape Allergy Verified 07/07/18 01:18 amlodipine Allergy "swelled Verified 10/20/17 14:12 in feet and legs" Medications: Current Medications Acetaminophen (Tylenol Elixir) 1,000 mg PO Q6H PRN PRN Reason: Mild Pain (1-3) Last Admin: 07/11/18 21:17 Dose: 1,000 mg Acetaminophen (Tylenol) 1,000 mg OK Q6H PRN PRN Reason: Mild Pain (1-3) Albuterol Sulfate (Ventolin) 2.5 mg NEB [id number] PRN PRN Reason: Wheezing Bisacodyl (Dulcolax) 10 mg OK DAILY [facility] Last Admin: 07/12/18 10:13 Dose: Not Given Clonidine (Catapres) 0.1 mg PO Q4H PRN PRN Reason: Systolic BP > 180 Clonidine ([id number]) 0.3 mg TD Q7D [facility] Last Admin: 07/11/18 14:10 Dose: 0.3 mg Clonidine (Catapres) 0.3 mg PO TID [facility] Last Admin: 07/12/18 20:33 Dose: 0.3 mg Cyclobenzaprine HCl (Flexeril) 5 mg PO Q8H PRN PRN Reason: Muscle Spasm/PAIN Last Admin: 07/12/18 00:21 Dose: 5 mg Digoxin (Lanoxin) 0.125 mg SLOW IVP DAILY [facility] Last Admin: 07/12/18 10:15 Dose: 0.125 mg Enalaprilat (Vasotec) 2.5 mg SLOW IVP Q6HR [facility] Last Admin: 07/12/18 17:48 Dose: 2.5 mg Enoxaparin Sodium (Lovenox) 30 mg SC 0900 [facility] Last Admin: 07/12/18 09:52 Dose: Not Given Fentanyl (Sublimaze) 25 mcg SLOW IVP Q6H PRN PRN Reason: Severe Pain (7-10) Last Admin: 07/12/18 17:45 Dose: 25 mcg Hydralazine HCl (Apresoline) 10 mg SLOW IVP Q4H PRN PRN Reason: Blood Pressure Hyoscyamine Sulfate (Levsin Sl) 0.125 mg PO Q4H PRN PRN Reason: Abdominal Distention Last Admin: 07/12/18 19:38 Dose: 0.125 mg Potassium Chloride/Dextrose/Sod Cl (D5 1/2 Ns W/20 Meq Kcl) 1,000 mls @ 50 mls/ hr IV .Q20H [facility] Last Admin: 07/12/18 13:32 Dose: 1,000 mls Piperacillin Sod/Tazobactam (Sod 3.375 gm/ Sodium Chloride) 100 mls @ 200 mls/ hr IVPB Q6HR [facility] Last Admin: 07/12/18 17:45 Dose: 100 mls Diltiazem HCl 125 mg/Miscellaneous Medication 1 each/ Sodium Chloride 125 mls @ 15 mls/hr IVPB INF [facility]; Protocol Last Admin: 07/12/18 16:16 Dose: 125 mls Iron/Minerals/Multivitamins (Theragran M) 1 tab PO DAILY [facility] Last Admin: 07/12/18 09:52 Dose: Not Given Isosorbide Mononitrate (Imdur Er) 30 mg PO BID [facility] Last Admin: 07/12/18 20:33 Dose: 30 mg Labetalol HCl (Normodyne) 10 mg SLOW IVP Q4H PRN PRN Reason: Systolic BP > 180 Last Admin: 07/12/18 19:40 Dose: 10 mg Lisinopril (Zestril) 20 mg PO BID [facility] Last Admin: 07/12/18 20:34 Dose: 20 mg Magnesium Hydroxide (Milk Of Magnesium) 30 ml PO Q6H PRN PRN Reason: Constipation Last Admin: 07/08/18 17:03 Dose: 30 ml Metoprolol Tartrate (Lopressor) 100 mg PO BID [facility] Last Admin: 07/12/18 20:34 Dose: 100 mg Mineral Oil/White Petrolatum (Eucerin Cream) 0 gm TOP BIDPRN PRN PRN Reason: Dry Skin Nitroglycerin (Nitrostat) 0.4 mg SL Q5MIN PRN PRN Reason: Chest Pain Ondansetron HCl (Zofran) 4 mg SLOW IVP Q6H PRN PRN Reason: Nausea/Vomiting Last Admin: 07/12/18 14:14 Dose: 4 mg Pantoprazole Sodium (Protonix) 40 mg IVP DAILY [facility] Last Admin: 07/12/18 10:17 Dose: 40 mg Polyethylene Glycol (Miralax) 17 gm PO DAILY [facility] Last Admin: 07/12/18 09:53 Dose: Not Given Prednisone (Prednisone) 15 mg PO QAM-WM [facility] Last Admin: 07/12/18 09:51 Dose: Not Given Pregabalin (Lyrica) 25 mg PO Q8HR [facility] Last Admin: 07/12/18 21:09 Dose: 25 mg Promethazine HCl (Phenergan) 12.5 mg IVPB Q6H PRN PRN Reason: Nausea/Vomiting Last Admin: 07/12/18 19:35 Dose: 12.5 mg Rosuvastatin Calcium (Crestor) 10 mg PO DAILY [facility] Last Admin: 07/12/18 09:53 Dose: Not Given Saccharomyces Boulardii (Florastor) 250 mg PO DAILY [facility] Last Admin: 07/12/18 09:53 Dose: Not Given Sodium Chloride (Flush - Normal Saline) 10 ml IVF Q12HR [facility] Last Admin: 07/12/18 20:34 Dose: 10 ml Sodium Chloride (Flush - Normal Saline) 10 ml IVF PRN PRN PRN Reason: Saline Flush Last Admin: 07/11/18 18:08 Dose: 10 ml Sodium Chloride (Normal Saline Pf) 10 ml FS PRN PRN PRN Reason: RECONSTITUTION Last Admin: 07/12/18 10:17 Dose: 10 ml Sotalol HCl (Betapace) 120 mg PO BID [facility] Last Admin: 07/12/18 21:06 Dose: 120 mg Thyroid ([place] Thyroid) 60 mg PO 0600 [facility] Last Admin: 07/12/18 09:51 Dose: Not Given
--- NOTE | 2018-07-12 21:46 | PRG ---
DATE OF SERVICE: 07/12/2018 CHIEF COMPLAINT: Ileus following spinal surgery, pericolonic diverticular abscess. HISTORY: Ms. Carrera has been hospitalized since her admission and surgery on June. She was admitted on June 30 and her surgery was July 03. She developed abdominal distention with nausea and vomiting, was seen a couple of days ago in consultation by Dr. Fish. CT scan was obtained yesterday revealing a pericolonic left-sided abscess. She was started at that time on Zosyn. Today, a CT-guided abscess drainage was performed by Radiology with removal of about 30 mL of purulent material. Drain is left in place. She does not feel well in her bed in the intermediate care unit. She has a nasogastric tube in place. She is otherwise resting appropriately comfortable. OBJECTIVE: VITAL SIGNS: On examination, temperature is 98.5, pulse is 80, blood pressure is 163/74. LUNGS: Clear to auscultation. ABDOMEN: Soft. She has a drain in the left lower quadrant. Bowel sounds are hypoactive. LABORATORY DATA: White count is 20.3, it was 19.9 yesterday. Hemoglobin is 10.2. Electrolytes show hyponatremia and hypochloremia. ASSESSMENT: This chronically ill patient has another exacerbation/complication of her diverticulitis. Back in October, I performed a laparoscopic washout of another diverticular abscess. She recuperated, although overall low period of time. I had recommended elective colon resection secondary to the continued likelihood of further problems with diverticulitis. For a variety of reasons, this was unable to be scheduled. She continued to have other medical problems that precluded the elective scheduling of the surgery. Additionally, it is known that she will be a high risk patient secondary to her chronic steroid use and multiple medical problems. At this time, her care is certainly appropriate. She will need to continue with nasogastric tube until she has evidence of bowel function. Continue antibiotics and drain. At some point, we may again need to consider elective colon resection secondary to her continued diverticulitis problems. Job ID: [id number]
[2018-07-12] MEDS: Acetaminophen 650 MG/20.3 ML UDCUP PO PRN (22:50)
[2018-07-13] MEDS: Diltiazem HCl 125 MG, Admixture Fee 1 EACH in Sodium Chloride 0.9% 100 ML IVPB SCH ×2 (01:48→20:38)
[2018-07-13] MEDS: Hyoscyamine Sulfate SL 0.125 mg Tablet PO PRN (02:48)
[2018-07-13 04:36] LABS: Band 2 % (5-11); Eosinophils 1 % (0-10); Hemoglobin 9.2 g/dL (12.0-16.0); Lymphocytes 8 % (21-51); MDiff Complete? YES; Mean Corpuscular HGB CONC 30.7 g/dL (32.0-36.0); Mean Corpuscular Hemoglobin 25.7 pg (27.0-31.0); Mean Corpuscular Volume 83.7 fL (78.0-98.0); Mean Platelet Volume 7.3 fL (7.4-10.4); Monocytes 5 % (0-10); Neutrophil 84 % (42-75); Platelet Count 338 thou/uL (130-400); RBC Distribution Width 16.4 % (11.5-14.5); Red Blood Cell (RBC) Count 3.59 mill/uL (4.20-5.40); White Blood Cell (WBC) Count 16.5 thou/uL (4.8-10.8)
[2018-07-13 04:45] LABS: ALT (SGPT) Less than 7 U/L (8-55); AST (SGOT) 13 U/L (5-34); Albumin 2.6 g/dL (3.4-4.8); Alkaline Phosphatase 78 U/L (40-150); Anion Gap 11 mmol/L (10-20); BUN (Urea Nitrogen) 10 mg/dL (9.8-20.1); Bilirubin, Total 0.6 mg/dL (0.2-1.2); Calc. Creatinine Clearance 74 mL/min (70-130); Calcium 8.4 mg/dL (7.8-10.44); Carbon Dioxide 27 mmol/L (23-31); Chloride 97 mmol/L (98-107); Estimated GFR-MDRD 87; Globulin 2.9 g/dL (2.4-3.5); Glucose 143 mg/dL (83-110); Magnesium 1.7 mg/dL (1.6-2.6); Potassium 3.4 mmol/L (3.5-5.1); Protein, Total 5.5 g/dL (6.0-8.3); Sodium 132 mmol/L (136-145)
[2018-07-13] MEDS: Pregabalin 25 MG CAP PO SCH ×3 (05:49→23:01)
[2018-07-13] MEDS: Thyroid 60 MG TAB PO SCH (05:50)
[2018-07-13] MEDS: Piperacillin/Tazobactam 3.375 GM in Sodium Chloride 0.9% 100 ML IVPB SCH ×3 (05:57→18:30)
[2018-07-13] MEDS: Fentanyl 100 MCG/2 ML VIAL SLOW IVP PRN (05:59)
[2018-07-13] MEDS ORDERED: Potassium Phosphate 15 MMOL in Sodium Chloride 0.9% 250 ML 250 ML IVPB SCH (08:00)
[2018-07-13] MEDS ORDERED: Magnesium 2 GM/50 ML 2 GM in Premix Bag 1 BAG IVPB SCH (08:00)
[2018-07-13] MEDS ORDERED: Magnesium Sulfate 2 GM in Sodium Chloride 0.9% 100 ML IVPB SCH (08:00)
--- NOTE | 2018-07-13 08:39 | PDOC.CTH ---
Cardiology Progress Note - Subjective The pt seen and examined. No overnight events. No cardiac complaints. She is resting well at this moment. - Objective Vital Signs Temp Pulse BP 07/13/18 07:11 98.2 F 07/13/18 05:44 167/89 H 07/13/18 04:00 97.7 F 07/13/18 00:00 98.6 F 07/12/18 23:06 159/51 H 07/12/18 21:06 79 182/77 H Admit Weight 140 lb Weight 144 lb 8 oz 07/12/18 07/13/18 07/14/18 06:59 06:59 06:59 Intake Total 2490 2090 Output Total 1230 2260 Balance 1260 -170 - Physical Examination General/Neuro: alert & oriented x3 Neck: no JVD present Lungs: other: (diminished at bases) Heart: RRR, other: Abdomen: soft Extremities: other: (No edema) - Telemetry Telemetry Rhythm: A paced - Labs Result Diagrams: 07/13/18 04:16 07/13/18 04:16 Troponin/CKMB Troponin I 0.068 ng/mL (< 0.028) H 07/04/18 15:33 - Assessment/Plan 1. 2:1 Aflutter/Afib with RVR with s/p DCCV on 07/10/2018 - Converted back to Afib with RVR around 0100 on 07/11/2018; Well controlled HR with Diltiazem drip 15mg/h; cannot take PO med due to SBO; On Diltiazem 15mg/h, Digioxin IV, and Lovenox 30mg qd since she has Watchman's device. 2. HNP (herniated nucleus pulposus with myelopathy), thoracic on 07/04/2018 3. HTN - On Vasotec 2.5mg q6 hrs and Clonidin 0.3mg patch q 7 days; increase Diltiazem to 15mg/h; 4. Chronic diastolic HF (grade III with Echo in 05/2017) - unable to take Lasix 40mg po qd, metoprolol and lisinopril 5. COPD - on 2LNC 6. Hyperlipidemia - on Statin which is on hold 7. Hypothyroidism - 8. Sjogren's syndrome - on Prednisone 9. s/p CT drainage of diverticular abscess on 07/12/2018 MAR reviewed Pt. seen and eval. by me. I agree with the A/P by the LEAD PASTOR. She says she feels a lot better. At present she is maintaining NSR. She is still NPO. Once she is taking po meds then convert back to Sotolol for antiarrhythmic control. Chest : clear anteriorly. RRR. No edema. Minimal Bowel sounds. Review of Systems - Review of Systems Constitutional: reports: no symptoms reported EENTM: reports: no symptoms reported Respiratory: reports: no symptoms reported Cardiac (ROS): reports: no symptoms reported ABD/GI: reports: no symptoms reported : reports: no symptoms reported Musculoskeletal: reports: no symptoms reported
--- NOTE | 2018-07-13 09:50 | PRG ---
DATE OF SERVICE: 07/13/2018 SUBJECTIVE: Arabella Carrera has no complaints. She says her abdomen feels better. OBJECTIVE: VITAL SIGNS: She is afebrile. Heart rate 75, blood pressure 175/50. LUNGS: Clear. There are no wheezes. HEART: Regular rhythm. ABDOMEN: Soft. LABORATORY DATA: White count 16.5, hemoglobin 9.2, platelets 338, 50% bands on her peripheral smear. Sodium 132, potassium 3.4, chloride 97, bicarb 27, BUN 10, creatinine 0.66. IMPRESSION: 1. Perforated diverticulitis with intraabdominal abscess with two percutaneous drains in. Cultures are growing gram-negative rods. This is going to be a polymicrobial infection. 2. She is currently on Zosyn alone. I will defer to Surgery surgeon, but she may need broader antimicrobial therapy until cultures come back. 3. Asthmatic bronchitis by history, clinically stable at this point in time. 4. 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 5. History of extreme physical deconditioning. 6. Status post abscess drainage. 7. History of recurrent diverticulitis. She never was felt to be stable enough for an elective hemicolectomy. 8. Atrial fibrillation/atrial flutter. 9. History of herniated nucleus pulposus at multiple levels, spine surgery recently. 10. History of lipid disorder. 11. History of Sjogren syndrome. We will continue to follow. She is medically stable, but obviously at high risk for ongoing complications. If she has to have surgery, she is at high risk for not surviving. Job ID: [id number]
[2018-07-13] MEDS: Rosuvastatin 10 MG TAB PO SCH (10:03)
[2018-07-13] MEDS: cloNIDine 0.3 MG TAB PO SCH ×3 (10:03→23:00)
[2018-07-13] MEDS: Metoprolol Tartrate 100 MG TAB PO SCH ×2 (10:04→23:00)
[2018-07-13] MEDS: Multivitamin W/ Minerals 1 TAB PO SCH (10:04)
[2018-07-13] MEDS: Saccharomyces boulardii 250 MG CAP PO SCH (10:04)
[2018-07-13] MEDS: Lisinopril 20 MG TAB PO SCH ×2 (10:04→22:59)
[2018-07-13] MEDS: predniSONE 5 MG TAB PO SCH (10:04)
[2018-07-13] MEDS: Bisacodyl 10 MG SUPP PR SCH (10:05)
[2018-07-13] MEDS: Enoxaparin Sodium 30 MG/0.3 ML SYRINGE SC SCH (10:06)
[2018-07-13] MEDS: Digoxin 0.5 MG/2 ML AMP SLOW IVP SCH (10:06)
[2018-07-13] MEDS: Polyethylene Glycol 3350 17 GM Packet PO SCH (10:07)
[2018-07-13] MEDS: Pantoprazole 40 MG VIAL IVP SCH (10:08)
[2018-07-13] MEDS: Sotalol HCl 80 MG TAB PO SCH (10:20)
--- NOTE | 2018-07-13 14:23 | PDOC.CTH ---
Cardiology Progress Note - Subjective EP PROGRESS NOTE: 07/13/18 Seen as follow up for for atrial flutter. Adequate rate control today. Feels poorly. No new cardiac concerns. PO meds given via NGT but likely with poor absorption as suction is resumed 1 hr after meds given. - Objective Vital Signs Temp Pulse Pulse Pulse BP BP BP 07/13/18 11:25 77 81 162/59 H 179/55 H 07/13/18 11:20 99.1 F 07/13/18 10:20 79 170/51 H 07/13/18 10:06 79 07/13/18 10:04 170/51 H 07/13/18 10:03 170/51 H 07/13/18 07:11 98.2 F 07/13/18 05:44 167/89 H 07/13/18 04:00 97.7 F Pulse Ox Pulse Ox 07/13/18 11:25 100 100 07/13/18 11:20 07/13/18 10:20 07/13/18 10:06 07/13/18 10:04 07/13/18 10:03 07/13/18 07:11 07/13/18 05:44 07/13/18 04:00 Admit Weight 140 lb Weight 144 lb 8 oz 07/12/18 07/13/18 07/14/18 06:59 06:59 06:59 Intake Total 2490 2090 Output Total 1230 2260 Balance 1260 -170 - Physical Examination General/Neuro: alert & oriented x3, NAD Neck: carotid US brisk, no JVD present Lungs: CTA, unlabored respirations Heart: PMI normal Abdomen: NT/ND, soft - Telemetry Telemetry Rhythm: atrial flutter, rate controlled. - Labs Result Diagrams: 07/17/18 06:14 07/17/18 06:14 Troponin/CKMB Troponin I 0.068 ng/mL (< 0.028) H 07/04/18 15:33 - Assessment/Plan 1. Atypical atrial flutter - recurrent despite CV 07/10 - likely provoked by recent spinal surgery/diskectomy - stopping sotalol, PO dosing and absorption inconsistent at this point with NGT on suction. Continue rate control with dilt gtt and IV meds as needed once PICC is in place. Likely need to readdress need for antiarrhythmic therapy once medical issues have stabilized. - rated controlled today - watchman in place, no need for OAC 2. Dual chamber PPM - normal operation 3. COPD 4. Diastolic heart failure, chronic 5. Herniated disk -s/p diskectomy - pain 6. SBO vs illeus: NG tube on suction 7. Abd abscess - s/p drain by IR on 07/12
[2018-07-13] MEDS: Enalaprilat Dihydrate 1.25 MG/ML VIAL SLOW IVP SCH ×2 (16:06→18:38)
--- NOTE | 2018-07-13 16:16 | SPC ---
PROCEDURE: Peripheral insertion central catheter. INDICATIONS: Residential antibiotic IV treatment. FINDINGS: A dual lumen 5 Brazilian PICC line placed into the right basilic vein using ultrasound guidance with flu oroscopic confirmation. The tip is positioned in the SVC. EXPOSURE: 4296 mGy*cm2. FLUORO TIME: 1.8 minutes. PROCEDURE NOTE: The right upper extremity is prepped and draped in the sterile manner. Ultrasound is used to assess t he venous structures. There is a duplicated brachial vein noted. Basilic vein in the proximal humerus region was chosen for puncture. Local anesthesia was administered. This vein was punctured under ult rasound guidance and micropuncture technique. The wire was advanced into the vein. The tip of the wir e was then advanced into the SVC. Catheter length was then measured and cut. Sheath placed over the w emily. Catheter was then advanced over the wire. Peel away sheaths removed. Wire removed. The catheter was flushed and secured with sterile dressing. The tip of the catheter was positioned in the SVC. The re were no problems or complications. POS: ARNAV
--- NOTE | 2018-07-13 16:42 | PRG ---
DATE OF SERVICE: 07/13/2018 SUBJECTIVE: Ms. Carrera is feeling better today. She has had minimal output from her NG tube to about 25 mL out so far today and she is clamped for testing downstairs. She has started to pass flatus she states and feels she has had a bowel movement. OBJECTIVE: VITAL SIGNS: Temperature is 96.4, blood pressure is 161/49, pulse is 79. ABDOMEN: Soft and nontender. Bowel sounds are still quiescent. LABORATORY STUDIES: White count is down to 16,500 from 20,000 yesterday, hemoglobin is 9.2, platelet count 338. Sodium 132, potassium 3.4, BUN and creatinine are ASSESSMENT: 1. Perforated diverticulitis. She is status post drainage on Zosyn. She has had no fever, improving leukocytosis. 2. Steroid dependency. She is on stress dose steroids presently. 3. History of chronic bronchitis. 4. History of Sjogren's and polymyalgia rheumatica. 5. Prior history of recurrent diverticulitis with inability to have surgery in the past. She never really became stable or healthy enough to undergo surgery. 6. Ileus versus partial obstruction. This seems to be improving with less NG output and needing to pass flatus. We were going to try to clamp her NG. We are checking residuals every 4 hours. I talked to the nurse about this. If she does well, then hopefully tomorrow we can clamp it, completely remove it depending on her output. Job ID: [id number]
--- NOTE | 2018-07-13 17:01 | PRG ---
DATE OF SERVICE: 07/13/2018 SUBJECTIVE: Ms. Carrera remains in the intermediate care unit. She had a PICC line placed earlier today and apparently had some sedation for that and she has been very lethargic since then. When I arrived today, she is sleeping and she is able to open her eyes and arouse, but is not really conversant at this time. She therefore has no complaints. Nasogastric tube is still in place, although there is minimal output thus far today. It is currently clamped. Cultures from her abscess drainage yesterday reveal a gram-negative lyudmila. The species is still pending. Her left lower quadrant drain put out 25 mL yesterday. She had excellent urine output with her Beth catheter of over 1500 mL yesterday. OBJECTIVE: VITAL SIGNS: On examination today, she is afebrile. Her pulse is 77 and blood pressure is 141/49. LUNGS: Clear to auscultation. Her tissue appears to be edematous, likely related to chronic steroids and malnutrition. ABDOMEN: Somewhat bloated. There are no bowel sounds appreciable. There is no significant tenderness, but she seems to be uncomfortable when I am examining her abdomen. LABORATORY DATA: Her chemistry profile reveals her sodium is low at 132, potassium is low at 3.4, and chloride is a little low at 97. Her albumin is low at 2.6. Her CBC reveals that her white blood cell count has dropped from 20.3 yesterday to 16.5 today, and hemoglobin is 9.2. ASSESSMENT AND PLAN: The patient with persistent ileus, likely related to her diverticular abscess. This has been drained and her white blood cell count is dropping appropriately. She is also on antibiotics. Final cultures are still pending. Although her NG is being clamped in an attempt to encourage bowel function, I suspect she will have an ileus for a while longer and really will not be able to eat. I will therefore initiate TPN today in an attempt to help with her malnutrition. Continue NG tube and antibiotics and drain care for now. Job ID: [id number]
[2018-07-13] MEDS ORDERED: Dextrose 50% Abboject 50 ML SYRINGE IVP PRN (17:34)
[2018-07-13] MEDS ORDERED: Dextrose 5% in Water 1,000 ML IV PRN (17:34)
[2018-07-13] MEDS: D5 1/2 NS w/20 mEq KCL 1,000 ML IV SCH (18:21)
[2018-07-13 18:32] LABS: Cardiac Risk 3.5 (Less than 4.5)
[2018-07-13] MEDS: SODIUM CHLORIDE IV SCH (22:59)
[2018-07-13] MEDS: POTASSIUM CHLORIDE IV SCH (22:59)
[2018-07-13] MEDS: MULTIVITAMINS IV SCH (22:59)
[2018-07-13] MEDS: [UNRECOGNIZED DRUG - OTHER] IV SCH (22:59)
--- NOTE | 2018-07-13 23:14 | PDOC.PN ---
- Subjective Encounter Start Date: 07/13/18 Encounter Start Time: 15:30 Patient seen and examined for Sepsis/diverticular abscess/Afib. On Cardizem drip. No new complaints. No overnight events - Objective Resuscitation Status - Order Detail: 07/01/18 09:58 Resuscitation Status Routine Resuscitation Status: PRTL: Chem-Intubation Discussed with: Patient Additional comments: Cardioversion also ok. No compressions. MAR Reviewed: Yes Vital Signs & Weight: Vital Signs (12 hours) Temp Pulse Pulse Pulse BP BP BP 07/13/18 19:52 99.1 F 07/13/18 18:38 136/51 L 07/13/18 16:06 141/49 H 07/13/18 16:03 141/49 H 07/13/18 15:50 77 76 160/48 H 164/54 H 07/13/18 15:17 96.4 F L 07/13/18 11:25 77 81 162/59 H 07/13/18 11:20 99.1 F BP Pulse Ox Pulse Ox Pulse Ox 07/13/18 19:52 07/13/18 18:38 07/13/18 16:06 07/13/18 16:03 07/13/18 15:50 100 100 07/13/18 15:17 07/13/18 11:25 179/55 H 100 100 07/13/18 11:20 Weight Admit Weight 140 lb Weight 144 lb 8 oz Most Recent Monitor Data Heart Rate from ECG 75 NIBP 132/43 NIBP BP-Mean 72 Respiration from ECG 18 SpO2 100 I&O: 07/12/18 07/13/18 07/14/18 06:59 06:59 06:59 Intake Total 2490 2090 205 Output Total 1230 2260 360 Balance 1260 -170 -155 Result Diagrams: 07/14/18 05:30 07/14/18 03:30 Additional Labs: Accuchecks 07/13/18 20:05 POC Glucose 131 H EKG Reviewed by me: Yes (Tele Afib) Phys Exam - Physical Examination Constitutional: NAD (ill appearing) Respiratory: no wheezing, no rhonchi Cardiovascular: no rub, irregular Gastrointestinal: soft no guarding, NG tube + Dx/Plan - Plan DVT proph w/lovenox, DVT proph w/SCDs 1. Lumbar radiculopathy, status post laminectomy. 2. Atrial flutter/atrial fibrillation with rapid ventricular response. 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 on Cardizem drip. Sotalol dced per EP 3. SBO with Complicated diverticulitis with abscess s/o drainage 07/12 4. Chronic diastolic heart failure. 5. Chronic obstructive pulmonary disease. 6. Sjogren syndrome, on chronic steroids. 7. Hypothyroidism. 8. Constipation. 9. Irritable bowel syndrome. 10. Hypertension/Hyperlipidemia. 11. Hypokalemia/hypomagnesemia/hypophosphatemia 12. Elevated troponin secondary to demand ischemia. 13. Hyponatremia. 14. Chronic anemia. PLAN: Cont antibiotics On Cardizem drip with PO Metoprolol Cont other meds as below AM labs Review of Systems - Review of Systems Cardiovascular: negative: chest pain, palpitations, orthopnea, paroxysmal nocturnal dyspnea, edema, light headedness, other Genitourinary: negative: Dysuria, Frequency, Incontinence, Hematuria, Retention , Other - Medications/Allergies Allergies/Adverse Reactions: Allergies Allergy/AdvReac Type Severity Reaction Status Date / Time adhesive tape Allergy Verified 07/07/18 01:18 amlodipine Allergy "swelled Verified 10/20/17 14:12 in feet and legs" Medications: Current Medications Acetaminophen (Tylenol Elixir) 1,000 mg PO Q6H PRN PRN Reason: Mild Pain (1-3) Last Admin: 07/12/18 22:50 Dose: 1,000 mg Acetaminophen (Tylenol) 1,000 mg OR Q6H PRN PRN Reason: Mild Pain (1-3) Albuterol Sulfate (Ventolin) 2.5 mg NEB [id number] PRN PRN Reason: Wheezing Bisacodyl (Dulcolax) 10 mg OR DAILY [facility] Last Admin: 07/13/18 10:05 Dose: Not Given Clonidine (Catapres) 0.1 mg PO Q4H PRN PRN Reason: Systolic BP > 180 Clonidine (Efwzvgsu-Gwv-0) 0.3 mg TD Q7D [facility] Last Admin: 07/11/18 14:10 Dose: 0.3 mg Clonidine (Catapres) 0.3 mg PO TID [facility] Last Admin: 07/13/18 16:03 Dose: 0.3 mg Cyclobenzaprine HCl (Flexeril) 5 mg PO Q8H PRN PRN Reason: Muscle Spasm/PAIN Last Admin: 07/12/18 22:46 Dose: 5 mg Dextrose/Water (Dextrose 50%) 25 gm IVP PRN PRN PRN Reason: HYPOGLYCEMIA PROTOCOL Digoxin (Lanoxin) 0.125 mg SLOW IVP DAILY [facility] Last Admin: 07/13/18 10:06 Dose: 0.125 mg Enalaprilat (Vasotec) 2.5 mg SLOW IVP Q6HR [facility] Last Admin: 07/13/18 18:38 Dose: 2.5 mg Enoxaparin Sodium (Lovenox) 30 mg SC 0900 [facility] Last Admin: 07/13/18 10:06 Dose: 30 mg Fentanyl (Sublimaze) 25 mcg SLOW IVP Q6H PRN PRN Reason: Severe Pain (7-10) Last Admin: 07/13/18 05:59 Dose: 25 mcg Glucagon (Glucagon) 1 mg IM PRN PRN PRN Reason: HYPOGLYCEMIA PROTOCOL Hydralazine HCl (Apresoline) 10 mg SLOW IVP Q4H PRN PRN Reason: Blood Pressure Hyoscyamine Sulfate (Levsin Sl) 0.125 mg PO Q4H PRN PRN Reason: Abdominal Distention Last Admin: 07/13/18 02:48 Dose: 0.125 mg Potassium Chloride/Dextrose/Sod Cl (D5 1/2 Ns W/20 Meq Kcl) 1,000 mls @ 50 mls/ hr IV .Q20H [facility] Last Admin: 07/13/18 18:21 Dose: Not Given Piperacillin Sod/Tazobactam (Sod 3.375 gm/ Sodium Chloride) 100 mls @ 200 mls/ hr IVPB Q6HR [facility] Last Admin: 07/13/18 18:30 Dose: 100 mls Diltiazem HCl 125 mg/Miscellaneous Medication 1 each/ Sodium Chloride 125 mls @ 10 mls/hr IVPB INF ASNDEE; Protocol Last Admin: 07/13/18 20:38 Dose: 125 mls Dextrose/Water (D5w) 1,000 mls @ 0 mls/hr IV INF PRN PRN Reason: HYPOGLYCEMIA PROTOCOL Sodium Chloride 60 meq/Potassium Chloride 20 meq/Multivitamins 10 ml/ Chromium/ Copper/Manganese/Seleni/Zn 5 ml/ Insulin Human Regular 20 units/ Amino Acids/ Electrolytes/ Fat Emulsion Intravenous 2,290.2 mls @ 95.425 mls/hr IV 2200 [facility] Insulin Human Regular (Humulin R) 0 units SC .MODERATE SLIDING SC PRN; Protocol PRN Reason: MODERATE SLIDING SCALE Iron/Minerals/Multivitamins (Theragran M) 1 tab PO DAILY [facility] Last Admin: 07/13/18 10:04 Dose: 1 tab Isosorbide Mononitrate (Imdur Er) 30 mg PO BID [facility] Last Admin: 07/13/18 10:04 Dose: 30 mg Labetalol HCl (Normodyne) 10 mg SLOW IVP Q4H PRN PRN Reason: Systolic BP > 180 Last Admin: 07/12/18 19:40 Dose: 10 mg Lisinopril (Zestril) 20 mg PO BID [facility] Last Admin: 07/13/18 10:04 Dose: 20 mg Magnesium Hydroxide (Milk Of Magnesium) 30 ml PO Q6H PRN PRN Reason: Constipation Last Admin: 07/08/18 17:03 Dose: 30 ml Metoprolol Tartrate (Lopressor) 100 mg PO BID [facility] Last Admin: 07/13/18 10:04 Dose: 100 mg Mineral Oil/White Petrolatum (Eucerin Cream) 0 gm TOP BIDPRN PRN PRN Reason: Dry Skin Nitroglycerin (Nitrostat) 0.4 mg SL Q5MIN PRN PRN Reason: Chest Pain Ondansetron HCl (Zofran) 4 mg SLOW IVP Q6H PRN PRN Reason: Nausea/Vomiting Last Admin: 07/12/18 14:14 Dose: 4 mg Pantoprazole Sodium (Protonix) 40 mg IVP DAILY [facility] Last Admin: 07/13/18 10:08 Dose: 40 mg Polyethylene Glycol (Miralax) 17 gm PO DAILY [facility] Last Admin: 07/13/18 10:07 Dose: 17 gm Prednisone (Prednisone) 15 mg PO QAM-WM [facility] Last Admin: 07/13/18 10:04 Dose: 15 mg Pregabalin (Lyrica) 25 mg PO Q8HR [facility] Last Admin: 07/13/18 16:01 Dose: 25 mg Promethazine HCl (Phenergan) 12.5 mg IVPB Q6H PRN PRN Reason: Nausea/Vomiting Last Admin: 07/12/18 19:35 Dose: 12.5 mg Rosuvastatin Calcium (Crestor) 10 mg PO DAILY [facility] Last Admin: 07/13/18 10:03 Dose: 10 mg Saccharomyces Boulardii (Florastor) 250 mg PO DAILY [facility] Last Admin: 07/13/18 10:04 Dose: 250 mg Sodium Chloride (Flush - Normal Saline) 10 ml IVF Q12HR [facility] Last Admin: 07/13/18 10:09 Dose: 10 ml Sodium Chloride (Flush - Normal Saline) 10 ml IVF PRN PRN PRN Reason: Saline Flush Last Admin: 07/11/18 18:08 Dose: 10 ml Sodium Chloride (Normal Saline Pf) 10 ml FS PRN PRN PRN Reason: RECONSTITUTION Last Admin: 07/12/18 10:17 Dose: 10 ml Thyroid ([place] Thyroid) 60 mg PO 0600 [facility] Last Admin: 07/13/18 05:50 Dose: 60 mg Tramadol HCl (Ultram) 50 mg PO Q6H PRN PRN Reason: Pain
--- NOTE | 2018-07-13 23:33 | PRG ---
DATE OF SERVICE: 07/12/2018 SUBJECTIVE: This is followup for atypical atrial flutter. Ms. Carrera recently returned to her room after having percutaneous drain placed by Interventional Radiology for abdominal abscess. She remains on a diltiazem drip with p.o. sotalol being administered through her NG tube at the times when the suction is turned off. Her rate control substantially improved today. Ms. Carrera feels very poorly. She continues to have issues with pain control and nausea. She does not have any new cardiac concerns or complaints. REVIEW OF SYSTEMS: An 8-point review of systems is conducted and is positive for generalized pain, weakness, fatigue, nausea, and occasional heart racing. Otherwise, it is negative and as listed above. OBJECTIVE: VITAL SIGNS: Temperature 97.9, pulse 99, blood pressure 176/61, and oxygen is 95% on 1 to 2 L via nasal cannula. GENERAL: The patient is slightly sedated, but arousable to voice. She just returned to her room after having her drain placed in Interventional Radiology. NECK: Supple without jugular venous distention. LUNGS: Clear to auscultation bilaterally without wheezes, crackles, or rhonchi. There is an NG tube in her naris. HEART: Heart rate is regular, somewhat rapid at approximately 100 beats per minute. ABDOMEN: Obese, less distended than prior exams, but continues with absent bowel tones. EXTREMITIES: Warm and dry to touch without clubbing, cyanosis, or edema. NEUROLOGIC: Could not be performed with recent sedation. IMPRESSION: 1. Atypical atrial flutter. 2. Dual-chamber pacemaker with normal operation. 3. Chronic obstructive pulmonary disease. 4. Diastolic heart failure, chronic. 5. Herniated disk, status post diskectomy. 6. Small bowel obstruction versus ileus with NG tube and suction. 7. Abdominal abscess, status post drain placement today. PLAN AND RECOMMENDATIONS: I will continue current antiarrhythmic plan with IV rate-controlling agents including diltiazem drip and p.o. sotalol. There is concern for the consistency of the sotalol absorption as this is being given via the NG tube, which is intermittently on suction. She is very unlikely to be getting a full beneficial effect of sotalol. Her rate control is greatly improved today. We will continue her AV manish blocking agents which currently scheduled and ordered. She has had a Watchman placed in the past and there is no need for oral anticoagulation with her atrial arrhythmias largely. Her issues remain medical following her surgery to address her abdominal abscess likely ileus and also pain issues. Job ID: [id number]
[2018-07-14] MEDS: Piperacillin/Tazobactam 3.375 GM in Sodium Chloride 0.9% 100 ML IVPB SCH ×4 (00:51→17:48)
[2018-07-14] MEDS: Enalaprilat Dihydrate 1.25 MG/ML VIAL SLOW IVP SCH ×4 (00:52→17:48)
[2018-07-14] MEDS: Thyroid 60 MG TAB PO SCH (05:33)
[2018-07-14] MEDS: Pregabalin 25 MG CAP PO SCH ×3 (05:33→21:29)
[2018-07-14 05:43] LABS: #Eosinphils 0.1 thou/uL (0.0-0.7); #Lymphocytes 1.6 thou/uL (1.20-3.40); #Monocytes 0.7 thou/uL (0.11-0.59); #Neutrophils 14.3 thou/uL (1.40-6.50); %Basophils 0.1 % (0.0-1.0); %Eosinophils 0.8 % (0.0-10.0); %Lymphocytes 9.3 % (21.0-51.0); %Monocytes 4.1 % (0.0-10.0); %Neutrophils 85.7 % (42.0-75.0); Hemoglobin 7.4 g/dL (12.0-16.0); Mean Corpuscular HGB CONC 30.9 g/dL (32.0-36.0); Mean Corpuscular Volume 84.1 fL (78.0-98.0); Mean Platelet Volume 7.4 fL (7.4-10.4); Platelet Count 332 thou/uL (130-400); RBC Distribution Width 16.7 % (11.5-14.5); Red Blood Cell (RBC) Count 2.84 mill/uL (4.20-5.40); White Blood Cell (WBC) Count 16.7 thou/uL (4.8-10.8)
[2018-07-14 06:00] LABS: ALT (SGPT) Less than 7 U/L (8-55); AST (SGOT) 11 U/L (5-34); Albumin 2.2 g/dL (3.4-4.8); Alkaline Phosphatase 81 U/L (40-150); Anion Gap 9 mmol/L (10-20); BUN (Urea Nitrogen) 12 mg/dL (9.8-20.1); Bilirubin, Total 0.3 mg/dL (0.2-1.2); Calc. Creatinine Clearance 79 mL/min (70-130); Calcium 7.9 mg/dL (7.8-10.44); Carbon Dioxide 27 mmol/L (23-31); Chloride 101 mmol/L (98-107); Estimated GFR-MDRD Greater than 90; Globulin 2.7 g/dL (2.4-3.5); Glucose 176 mg/dL (83-110); Magnesium 1.9 mg/dL (1.6-2.6); Phosphorus 2.7 mg/dL (2.3-4.7); Potassium 3.5 mmol/L (3.5-5.1); Protein, Total 4.9 g/dL (6.0-8.3); Sodium 133 mmol/L (136-145)
[2018-07-14] MEDS: Bisacodyl 10 MG SUPP PR SCH (09:35)
[2018-07-14] MEDS: Digoxin 0.5 MG/2 ML AMP SLOW IVP SCH (09:35)
[2018-07-14] MEDS: Rosuvastatin 10 MG TAB PO SCH (09:35)
[2018-07-14] MEDS: Saccharomyces boulardii 250 MG CAP PO SCH (09:35)
[2018-07-14] MEDS: Metoprolol Tartrate 100 MG TAB PO SCH ×2 (09:35→21:29)
[2018-07-14] MEDS: Multivitamin W/ Minerals 1 TAB PO SCH (09:35)
[2018-07-14] MEDS: predniSONE 5 MG TAB PO SCH (09:35)
[2018-07-14] MEDS: Enoxaparin Sodium 30 MG/0.3 ML SYRINGE SC SCH (09:36)
[2018-07-14] MEDS: Polyethylene Glycol 3350 17 GM Packet PO SCH (09:36)
[2018-07-14] MEDS: Lisinopril 20 MG TAB PO SCH ×2 (09:36→21:28)
[2018-07-14] MEDS: cloNIDine 0.3 MG TAB PO SCH (09:36)
[2018-07-14] MEDS: Pantoprazole 40 MG VIAL IVP SCH (09:37)
[2018-07-14] MEDS: traMADol HCl 50 MG TAB PO PRN ×2 (09:46→17:55)
[2018-07-14] MEDS: Cyclobenzaprine 10 MG TAB PO PRN ×2 (09:47→17:55)
[2018-07-14] MEDS: Ondansetron PF 4 MG/2 ML Vial SLOW IVP PRN (10:08)
[2018-07-14] MEDS ORDERED: ISOVUE-370 76%-LOCM 1 ML ONE (10:44)
--- NOTE | 2018-07-14 11:55 | PRG ---
DATE OF SERVICE: SUBJECTIVE: Ms. Carrera is hospital day 14 and postoperative day 11 for thoracic laminectomy for spinal cord compression with left-sided lower lumbar decompression. She states her leg pain is certainly improved compared to preoperatively and initially postoperatively. She is moving her lower extremities without apparent deficits. Unfortunately, she has been found to have a peridiverticular abscess consistent with E. coli infiltration and she appears to have been placed on total parenteral nutrition. She continues to have cardiac and GI issues. We were very appreciative of our colleagues assisting in this regard. Job ID: [id number]
--- NOTE | 2018-07-14 11:57 | PRG ---
DATE OF SERVICE: 07/14/2018 SUBJECTIVE: Ms. Carrera has had no output through her NG tube overnight, just 10 mL negative to suction. Her abscess drained 24 mL. Urine output was 1575 yesterday and 475 so far today. OBJECTIVE: VITAL SIGNS: Blood pressure 173/47, afebrile, temperature 98, pulse 100 to 102. GENERAL: The patient complains feeling like she needs to go to bathroom. Nurse notes she has a small impaction. She is resting in bed. She is somewhat uncomfortable. She has no distress. She has stigmata of chronic steroid use, a buffalo hump, and very thin skin. LUNGS: Clear. HEART: Sinus tachycardia. ABDOMEN: Like slight protuberant, nontender. There is no rebound or guarding. EXTREMITIES: Reveal no clubbing, cyanosis, or edema. LABORATORY DATA: CAT scan from shows copious amount of stool in the right colon, but no fecal impaction. White count 16,000, hemoglobin 7.4, platelet count 332. INR 1.1. Sodium 133, potassium 3.5, BUN and creatinine are 12 and 0.6. Liver function tests normal. ASSESSMENT: 1. Diverticulitis complicated by abscesses drain. 2. Partial bowel obstruction. She seems to have minimal NG output with it being clamped. We will defer to Surgery to remove that. She is passing small amounts of gas, but has had no bowel movement. 3. Urgency for a bowel movement, but inability to do that. The nurse feels she has a small impaction, but CAT scan from the day of her drainage and from the original CAT scan when she came in showed no signs of fecal impaction. I would recommend they go and give her suppository to see if that helps her to have a bowel movement. 4. Drop in hemoglobin. No overt signs of bleeding. We are going to check that later today. Again make sure it is remaining stable. She had instrumentation and we are at risk for retroperitoneal or intra-abdominal bleeding related to that. Would continue antibiotics. Job ID: [id number]
[2018-07-14 12:24] LABS: Hemoglobin 6.3 g/dL (12.0-16.0)
[2018-07-14] MEDS ORDERED: D5 1/2 NS w/20 mEq KCL 1,000 ML IV SCH (12:30)
[2018-07-14] MEDS ORDERED: Mineral Oil PER 1 ML PO SCH (12:30)
[2018-07-14] MEDS ORDERED: Furosemide 40 MG/4 ML VIAL SLOW IVP SCH (12:30)
[2018-07-14] MEDS ORDERED: Milk Of Magnesia 30 ML UDCUP PO SCH (12:30)
--- NOTE | 2018-07-14 12:59 | PRG ---
DATE OF SERVICE: SERVICE: Pulmonary Medicine. INTERVAL HISTORY: The patient is having some constipation. She is tolerating p.o. She is taking sips of water and ice chips. With this, her residuals this morning was less than 10 mL. Otherwise, there has been no interval change to her condition. PHYSICAL EXAMINATION: VITAL SIGNS: Afebrile with a T-max of 99.0. Pulse 100, blood pressure 160/48, respirations 18, and saturation 100% on 2 L nasal cannula. GENERAL: The patient is awake and alert, in no apparent distress. LUNGS: Decent air entry. Dependent crackles are minimal. There is no prolonged expiratory phase or wheezing present. HEART: Normal rate. Regular. ABDOMEN: Soft. Minimal tenderness to palpation. There is minimal rebound. Bowel sounds are present. GENITOURINARY: Beth catheter in place. NEUROLOGIC: Grossly nonfocal. LABORATORY DATA: WBC 16.7, hemoglobin 7.4, platelets 332,000. INR 1.1. Basic metabolic profile and liver function studies are otherwise unremarkable. Potassium 3.5. Abdominal abscess is growing E. coli which is essentially a pansensitive organism. Nonhemolytic Streptococcus was also isolated. ASSESSMENT: 1. Severe sepsis. 2. Perforated diverticulitis, status post percutaneous drain x2. 3. Asthma, clinically quiescent. 4. History of relative adrenal insufficiency. 5. Two weeks postop from spine surgery. DISCUSSION AND PLAN: We will continue our antibiotics. I will provide her with a dose of potassium. We will check a hemoglobin as she had a significant drop recently. Pulmonary/Critical Care will continue to follow along while she remains in the [facility]. She will need to stay here because she has quite a number of moving parts that require close nursing attention. Job ID: [id number]
[2018-07-14] MEDS ORDERED: Fleet Enema 133 ML BOT PR SCH (15:15)
--- NOTE | 2018-07-14 15:46 | CT ---
CT ABDOMEN AND PELVIS WITH IV CONTRAST 07/14/18 HISTORY: Abdominal pain. Decreased hemoglobin and hematocrit. COMPARISON: 07/11/18. FINDINGS: Atelectasis is present at each lung base with small amount of bilateral pleural fluid. Prominent calc ification throughout the arterial structures. Nasogastric tube decompressed the stomach. Gallbladder is surgically absent. Radiopaque percutaneous drain at the left lower quadrant is present within a no w completely decompressed cavity at the level of the left lower quadrant abdominal wall. No adjacent fluid collections or blood is apparent within the abdomen. Diverticula arise from the colon. Dilated loops of proximal to mid small bowel are again demonstrated, similar in appearance to the kristie or study measuring up to 3.2 cm. The terminal ileum is completely decompressed. Contrast material is present throughout the colon. Scattered diverticula without adjacent inflammation Beth catheter part ially visualized. IMPRESSION: Complete decompression of the left lower quadrant abscess around the percutaneous drain. No evidence of complication. No evidence of intra-abdominal hemorrhage. Ongoing low grade versus intermittent distal partial small bowel obstruction. Stable compared to prior studies. Atherosclerosis. Small amount of bilateral pleural fluid and bibasilar lung atelectasis. POS: [facility]
--- NOTE | 2018-07-14 16:07 | PDOC.OP ---
Operative Note - Operative Note Operative Note: Patient is complaining of some lower abdominal cramping and inability to have a bowel movement. She states that she has been passing small amounts and pulling it out with her finger. Her nurse tried to help digitally disimpact her but the patient was unable to tolerate this. He denies feeling lightheaded or short of breath but her hemoglobin and hematocrit are both significantly fallen since her admission. Hematocrit this morning was 23 and on recheck it was 20. The nurse confirms that she ese this through the PICC line and discarded 10 mL's before sending a sample. All of her other CBC parameters are unchanged. Her abdomen is soft and minimally distended. Bowel sounds are diminished and she has some tenderness to palpation in the left lower quadrant but no rigidity or guarding. Minimal drainage in the percutaneous drain bag. White count is still mildly elevated at 16. Her vital signs at been okay except for moderate hypertension and her urine outputs the last [address] images are reviewed and I don't see any evidence of hematoma or intra-abdominal bleeding. She still appears to have a distal small bowel obstruction. She has a large stool ball in the rectum and contrast in the right and transverse colon which has not progressed to the distal colon. Assessment/plan: Diverticulitis with abscess and partial small bowel obstruction. Contrast has progressed to the right colon but has not made it down into the distal colon. The patient has some fecal impaction but has declined digital disimpaction so I am going to try to soften the stool ball with an enema. I asked the nurse to hold off on giving her any laxatives through the NG tube, since her small bowel obstruction appears to be persistent. If this does not resolve she may require surgery. I am unsure of the source of her anemia, but I am going to give her a unit of packed red blood cells.
[2018-07-14 20:14] LABS: Hemoglobin 8.6 g/dL (12.0-16.0); Platelet Count 284 thou/uL (130-400)
[2018-07-14] MEDS: cloNIDine 0.1 MG TAB PO SCH (21:29)
[2018-07-14] MEDS: Fentanyl 100 MCG/2 ML VIAL SLOW IVP PRN (21:36)
[2018-07-14] MEDS: MULTIVITAMINS IV SCH (22:24)
[2018-07-14] MEDS: SODIUM CHLORIDE IV SCH (22:24)
[2018-07-14] MEDS: POTASSIUM CHLORIDE IV SCH (22:24)
[2018-07-14] MEDS: [UNRECOGNIZED DRUG - OTHER] IV SCH (22:24)
--- NOTE | 2018-07-14 23:03 | PDOC.PN ---
- Subjective Encounter Start Date: 07/14/18 Encounter Start Time: 09:00 Patient seen and examined for multiple issues. Abd pain improving. Feels gen weak. No new complaints. No overnight events - Objective Resuscitation Status - Order Detail: 07/01/18 09:58 Resuscitation Status Routine Resuscitation Status: PRTL: Chem-Intubation Discussed with: Patient Additional comments: Cardioversion also ok. No compressions. MAR Reviewed: Yes Vital Signs & Weight: Vital Signs (12 hours) Temp Pulse Resp BP BP Pulse Ox 07/14/18 21:29 147/49 H 07/14/18 21:28 147/49 H 07/14/18 19:38 99.3 F 07/14/18 18:00 99.0 F 77 24 H 142/61 H 100 07/14/18 17:48 150/61 H 07/14/18 16:00 98.5 F 77 20 160/75 H 100 07/14/18 15:36 98.5 F 75 24 H 142/53 H 07/14/18 11:52 145/43 H 07/14/18 11:26 99.0 F Weight Admit Weight 140 lb Weight 144 lb 8 oz Most Recent Monitor Data Heart Rate from ECG 79 NIBP 146/48 NIBP BP-Mean 80 Respiration from ECG 22 SpO2 100 I&O: 07/13/18 07/14/18 07/15/18 06:59 06:59 06:59 Intake Total 2090 791.4 1683 Output Total 2260 609 791 Balance -170 182.4 892 Result Diagrams: 07/14/18 20:01 07/14/18 03:30 Additional Labs: Accuchecks 07/14/18 07/14/18 07/14/18 22:23 16:14 05:39 POC Glucose 269 H 259 H 182 H 07/14/18 00:07 POC Glucose 135 H EKG Reviewed by me: Yes (Tele Afib) Phys Exam - Physical Examination Constitutional: NAD Respiratory: no wheezing, no rhonchi Dec AE at bases Cardiovascular: no rub, irregular Gastrointestinal: soft mild gen tend, no guarding Dx/Plan - Plan DVT proph w/SCDs 1. Lumbar radiculopathy, status post laminectomy. 2. Atrial flutter/atrial fibrillation with rapid ventricular response. 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 on Cardizem drip. Sotalol dced per EP 3. SBO with Complicated diverticulitis with abscess s/o drainage 07/12 4. Chronic diastolic heart failure. 5. Chronic obstructive pulmonary disease. 6. Sjogren syndrome, on chronic steroids. 7. Hypothyroidism. 8. Constipation. 9. Irritable bowel syndrome. 10. Hypertension/Hyperlipidemia. 11. Hypokalemia/hypomagnesemia/hypophosphatemia 12. Elevated troponin secondary to demand ischemia. 13. Hyponatremia. 14. Acute on chronic anemia. 15. Moderate PEM - on TPN PLAN: Cont antibiotics Recheck HH later today Cont Cardizem drip with PO Metoprolol Cont other meds as below AM labs Review of Systems - Review of Systems Respiratory: negative: Cough, Dry, Shortness of Breath, Hemoptysis, SOB with Excertion, Pleuritic Pain, Sputum, Wheezing Cardiovascular: negative: chest pain, palpitations, orthopnea, paroxysmal nocturnal dyspnea, edema, light headedness, other - Medications/Allergies Allergies/Adverse Reactions: Allergies Allergy/AdvReac Type Severity Reaction Status Date / Time adhesive tape Allergy Verified 07/07/18 01:18 amlodipine Allergy "swelled Verified 10/20/17 14:12 in feet and legs" Medications: Current Medications Acetaminophen (Tylenol Elixir) 1,000 mg PO Q6H PRN PRN Reason: Mild Pain (1-3) Last Admin: 07/12/18 22:50 Dose: 1,000 mg Acetaminophen (Tylenol) 1,000 mg MS Q6H PRN PRN Reason: Mild Pain (1-3) Albuterol Sulfate (Ventolin) 2.5 mg NEB [id number] PRN PRN Reason: Wheezing Bisacodyl (Dulcolax) 10 mg MS DAILY [facility] Last Admin: 07/14/18 09:35 Dose: 10 mg Clonidine (Catapres) 0.1 mg PO Q4H PRN PRN Reason: Systolic BP > 180 Clonidine (Rwyiteiq-Xln-3) 0.3 mg TD Q7D [facility] Last Admin: 07/11/18 14:10 Dose: 0.3 mg Clonidine (Catapres) 0.1 mg PO BID [facility] Last Admin: 07/14/18 21:29 Dose: 0.1 mg Cyclobenzaprine HCl (Flexeril) 5 mg PO Q8H PRN PRN Reason: Muscle Spasm/PAIN Last Admin: 07/14/18 17:55 Dose: 5 mg Dextrose/Water (Dextrose 50%) 25 gm IVP PRN PRN PRN Reason: HYPOGLYCEMIA PROTOCOL Digoxin (Lanoxin) 0.125 mg SLOW IVP DAILY [facility] Last Admin: 07/14/18 09:35 Dose: 0.125 mg Enalaprilat (Vasotec) 2.5 mg SLOW IVP Q6HR [facility] Last Admin: 07/14/18 17:48 Dose: 2.5 mg Fentanyl (Sublimaze) 25 mcg SLOW IVP Q6H PRN PRN Reason: Severe Pain (7-10) Last Admin: 07/14/18 21:36 Dose: 25 mcg Glucagon (Glucagon) 1 mg IM PRN PRN PRN Reason: HYPOGLYCEMIA PROTOCOL Hydralazine HCl (Apresoline) 10 mg SLOW IVP Q4H PRN PRN Reason: Blood Pressure Hyoscyamine Sulfate (Levsin Sl) 0.125 mg PO Q4H PRN PRN Reason: Abdominal Distention Last Admin: 07/13/18 02:48 Dose: 0.125 mg Piperacillin Sod/Tazobactam (Sod 3.375 gm/ Sodium Chloride) 100 mls @ 200 mls/ hr IVPB Q6HR [facility] Last Admin: 07/14/18 17:48 Dose: 100 mls Diltiazem HCl 125 mg/Miscellaneous Medication 1 each/ Sodium Chloride 125 mls @ 10 mls/hr IVPB INF [facility]; Protocol Last Admin: 07/13/18 20:38 Dose: 125 mls Dextrose/Water (D5w) 1,000 mls @ 0 mls/hr IV INF PRN PRN Reason: HYPOGLYCEMIA PROTOCOL Sodium Chloride 60 meq/Potassium Chloride 20 meq/Multivitamins 10 ml/ Chromium/ Copper/Manganese/Seleni/Zn 5 ml/ Insulin Human Regular 20 units/ Amino Acids/ Electrolytes/ Fat Emulsion Intravenous 2,290.2 mls @ 95.425 mls/hr IV 2200 [facility] Last Admin: 07/14/18 22:24 Dose: 2,290.2 mls Potassium Chloride/Dextrose/Sod Cl (D5 1/2 Ns W/20 Meq Kcl) 1,000 mls @ 0 mls/ hr IV .Q0M [facility] Insulin Human Regular (Humulin R) 0 units SC .MODERATE SLIDING SC PRN; Protocol PRN Reason: MODERATE SLIDING SCALE Iron/Minerals/Multivitamins (Theragran M) 1 tab PO DAILY [facility] Last Admin: 07/14/18 09:35 Dose: 1 tab Isosorbide Mononitrate (Imdur Er) 30 mg PO BID [facility] Last Admin: 07/14/18 21:29 Dose: 30 mg Labetalol HCl (Normodyne) 10 mg SLOW IVP Q4H PRN PRN Reason: Systolic BP > 180 Last Admin: 07/12/18 19:40 Dose: 10 mg Lisinopril (Zestril) 20 mg PO BID [facility] Last Admin: 07/14/18 21:28 Dose: 20 mg Magnesium Hydroxide (Milk Of Magnesium) 30 ml PO Q6H PRN PRN Reason: Constipation Last Admin: 07/08/18 17:03 Dose: 30 ml Metoprolol Tartrate (Lopressor) 100 mg PO BID [facility] Last Admin: 07/14/18 21:29 Dose: 100 mg Mineral Oil/White Petrolatum (Eucerin Cream) 0 gm TOP BIDPRN PRN PRN Reason: Dry Skin Nitroglycerin (Nitrostat) 0.4 mg SL Q5MIN PRN PRN Reason: Chest Pain Ondansetron HCl (Zofran) 4 mg SLOW IVP Q6H PRN PRN Reason: Nausea/Vomiting Last Admin: 07/14/18 10:08 Dose: 4 mg Pantoprazole Sodium (Protonix) 40 mg IVP DAILY [facility] Last Admin: 07/14/18 09:37 Dose: 40 mg Polyethylene Glycol (Miralax) 17 gm PO DAILY [facility] Last Admin: 07/14/18 09:36 Dose: 17 gm Prednisone (Prednisone) 15 mg PO [facility] Last Admin: 07/14/18 09:35 Dose: 15 mg Pregabalin (Lyrica) 25 mg PO Q8HR [facility] Last Admin: 07/14/18 21:29 Dose: 25 mg Promethazine HCl (Phenergan) 12.5 mg IVPB Q6H PRN PRN Reason: Nausea/Vomiting Last Admin: 07/12/18 19:35 Dose: 12.5 mg Rosuvastatin Calcium (Crestor) 10 mg PO DAILY [facility] Last Admin: 07/14/18 09:35 Dose: 10 mg Saccharomyces Boulardii (Florastor) 250 mg PO DAILY [facility] Last Admin: 07/14/18 09:35 Dose: 250 mg Sodium Chloride (Flush - Normal Saline) 10 ml IVF Q12HR [facility] Last Admin: 07/14/18 21:30 Dose: 10 ml Sodium Chloride (Flush - Normal Saline) 10 ml IVF PRN PRN PRN Reason: Saline Flush Last Admin: 07/11/18 18:08 Dose: 10 ml Sodium Chloride (Normal Saline Pf) 10 ml FS PRN PRN PRN Reason: RECONSTITUTION Last Admin: 07/12/18 10:17 Dose: 10 ml Throat Lozenges (Cepastat Lozenges) 1 ric PO Q2H PRN PRN Reason: Sore Throat Thyroid (Kiln Thyroid) 60 mg PO 0600 [facility] Last Admin: 07/14/18 05:33 Dose: 60 mg Tramadol HCl (Ultram) 50 mg PO Q6H PRN PRN Reason: Pain Last Admin: 07/14/18 17:55 Dose: 50 mg
[2018-07-15] MEDS: Enalaprilat Dihydrate 1.25 MG/ML VIAL SLOW IVP SCH ×5 (00:38→23:57)
[2018-07-15] MEDS: Piperacillin/Tazobactam 3.375 GM in Sodium Chloride 0.9% 100 ML IVPB SCH ×4 (00:41→17:52)
[2018-07-15] MEDS: Diltiazem HCl 125 MG, Admixture Fee 1 EACH in Sodium Chloride 0.9% 100 ML IVPB SCH (01:51)
[2018-07-15] MEDS: traMADol HCl 50 MG TAB PO PRN ×3 (03:30→22:43)
[2018-07-15] MEDS: Cyclobenzaprine 10 MG TAB PO PRN ×2 (03:30→15:53)
[2018-07-15] MEDS: Cepastat Lozenges 1 LOZ PO PRN ×2 (05:57→20:49)
[2018-07-15] MEDS: Pregabalin 25 MG CAP PO SCH ×3 (06:04→22:34)
[2018-07-15] MEDS: Insulin Regular 300 UNITS/3 ML VIAL SC PRN ×2 (06:04→17:52)
[2018-07-15] MEDS: Thyroid 60 MG TAB PO SCH (06:05)
[2018-07-15 06:26] LABS: #Eosinphils 0.1 thou/uL (0.0-0.7); #Lymphocytes 1.7 thou/uL (1.20-3.40); #Monocytes 0.6 thou/uL (0.11-0.59); #Neutrophils 10.5 thou/uL (1.40-6.50); %Basophils 0.1 % (0.0-1.0); %Eosinophils 0.8 % (0.0-10.0); %Lymphocytes 13.2 % (21.0-51.0); %Monocytes 4.8 % (0.0-10.0); Hemoglobin 8.4 g/dL (12.0-16.0); Mean Corpuscular HGB CONC 30.9 g/dL (32.0-36.0); Mean Corpuscular Hemoglobin 26.7 pg (27.0-31.0); Mean Corpuscular Volume 86.6 fL (78.0-98.0); Mean Platelet Volume 7.3 fL (7.4-10.4); Platelet Count 284 thou/uL (130-400); RBC Distribution Width 16.5 % (11.5-14.5); Red Blood Cell (RBC) Count 3.16 mill/uL (4.20-5.40); Reticulocyte Count 2.4 % (0.5-1.5)
[2018-07-15 06:41] LABS: Anion Gap 10 mmol/L (10-20); BUN (Urea Nitrogen) 14 mg/dL (9.8-20.1); Calc. Creatinine Clearance 83 mL/min (70-130); Carbon Dioxide 25 mmol/L (23-31); Chloride 104 mmol/L (98-107); Estimated GFR-MDRD Greater than 90; Glucose 184 mg/dL (83-110); Potassium 4.2 mmol/L (3.5-5.1); Sodium 135 mmol/L (136-145)
[2018-07-15] MEDS: Saccharomyces boulardii 250 MG CAP PO SCH (08:59)
[2018-07-15] MEDS: Digoxin 0.5 MG/2 ML AMP SLOW IVP SCH (08:59)
[2018-07-15] MEDS: cloNIDine 0.1 MG TAB PO SCH ×2 (08:59→20:46)
[2018-07-15] MEDS: Polyethylene Glycol 3350 17 GM Packet PO SCH (08:59)
[2018-07-15] MEDS: Rosuvastatin 10 MG TAB PO SCH (08:59)
[2018-07-15] MEDS: Metoprolol Tartrate 100 MG TAB PO SCH ×2 (09:00→20:46)
[2018-07-15] MEDS: Lisinopril 20 MG TAB PO SCH ×2 (09:00→20:47)
[2018-07-15] MEDS: Multivitamin W/ Minerals 1 TAB PO SCH (09:00)
[2018-07-15] MEDS: predniSONE 5 MG TAB PO SCH (09:01)
[2018-07-15] MEDS: Pantoprazole 40 MG VIAL IVP SCH (09:01)
[2018-07-15] MEDS: Sodium Chloride 0.9% (PF) 10 ML VIAL FS PRN (09:01)
[2018-07-15] MEDS: Bisacodyl 10 MG SUPP PR SCH (09:02)
--- NOTE | 2018-07-15 13:22 | PRG ---
DATE OF SERVICE: 07/15/2018 SERVICE: Pulmonary Medicine. INTERVAL HISTORY: The patient is doing fine from respiratory standpoint. Denies any chest pain, fevers, or chills. She indicates that her strength is improved fairly significantly. Otherwise, there has been no interval change to her condition. She got up and sat in the bed. When this happened, she got short of breath and her blood pressure shot up to over 200. PHYSICAL EXAMINATION: VITAL SIGNS: Afebrile, pulse 97, blood pressure 187/98, respirations 31, saturation 100% on 2 L nasal cannula. GENERAL: The patient is awake and alert, in no apparent distress. LUNGS: Decent air entry. Dependent crackles are noted. No prolonged expiratory phase or wheezing is appreciated. HEART: Normal rate. Regular. ABDOMEN: Soft, nontender, nondistended. Bowel sounds are positive. That being said, there is positive rebound. : Beth catheter in place. NEUROLOGIC: Grossly nonfocal. LABORATORY DATA: WBC 13.0, hemoglobin 8.4, platelets 284,000. With the 1 unit of blood, she went from hemoglobin of 6.3 up to 8.6 and has actually remained stable. This is very curious. Basic metabolic profile is otherwise unremarkable with a sodium of 135. E. coli is growing in the abdominal cultures. IMAGING: CT abdomen and pelvis with contrast demonstrates a small amount of bilateral pleural fluid and bibasilar atelectasis. Complete decompression of the lower quadrant abscess around the percutaneous drain with no evidence of complication. No evidence of intraabdominal hemorrhage is noted. Distal partial small-bowel obstruction is otherwise appreciated, which is stable compared to prior studies. ASSESSMENT: 1. Severe sepsis, improving. 2. Perforated diverticulitis, status post percutaneous drain x2. 3. Asthma, clinically quiescent. 4. History of relative adrenal insufficiency. 5. Two weeks postop from spine surgery. 6. Orthostatic hypertension. 7. Acute blood loss anemia. DISCUSSION AND PLAN: The patient is likely volume overload associated with her significant fluid resuscitation and long history of TPN. We will provide her with a dose of Lasix. The acute blood loss anemia is curious at best. I am not really certain what cause that. She will remain in the IMCU. Pulmonary/Critical Care will continue to follow along while she is here. Job ID: [id number] [facility]
--- NOTE | 2018-07-15 13:28 | PRG ---
DATE OF SERVICE: 07/15/2018 SUBJECTIVE: Ms. Carrera eventually got disimpacted last night. She actually refused to let myself or Dr. Valentino, the nurses do it, and she did herself. Nurses report she had a big brown firm stool and she had several others. The patient states she has had a couple of small bowels this morning. She is mildly nauseated, but has had no output through her NG tube. Her CAT scan yesterday showed no evidence of retroperitoneal or intra-abdominal bleeding. She received 1 unit of blood and her hemoglobin came up from 6.3 to 8.4 and it has remained stable. OBJECTIVE: VITAL SIGNS: Temperature is 98, T-max is 100, bicarbonate 26, heart rate is 79, blood pressure is 187/98. GENERAL: She is resting in bed. She has NG tube in place, it is clamped. LUNGS: Clear. HEART: Regular rate and rhythm. ABDOMEN: Soft and nontender. There are some scant bowel sounds present. EXTREMITIES: Reveal no edema. LABORATORY DATA: White count is 13.0, down from 16.7 yesterday, hemoglobin is 8.4 it was 8.6 at 2001 hours last night up from 6.3 with 1 unit of blood. Platelet count was 284. Sodium 135, potassium 4.2, BUN and creatinine are 14 and 0.58. ASSESSMENT: 1. Diverticular abscess, drained. CAT scan shows incomplete drainage. Minimal output through the drainage. She is on antibiotics and improving. 2. Complicated diverticular disease. She has not been a good candidate for surgery, and at times when surgery was planned in the last 6 to 7 months, she was medically not able to do so at those times. This is the first significant flare for her in about 7 months. 3. Chronic steroid dependence. 4. Drop in hemoglobin yesterday. We are concerned about intraperitoneal bleeding or retroperitoneal bleeding with her drains, but imaging showed no bleeding. Still drop in hemoglobin from baseline around 10 down to 6.3 yesterday over about 48 hours, is of unclear etiology. She did get 1 unit of blood, and her hemoglobin is now stable at 8.6 to 8.4, and maybe some of this was dilutional. She has had multiple procedures and maybe she had some blood loss with central line placement or drainage, but there again on her CT abdomen and pelvis, there are no signs of hematomas. 5. TPN. She had been n.p.o. She continues on this. 6. Partial bowel obstruction. This was felt to be an ileus, possibly related to the abscesses in the pelvis. In any event, the CT yesterday for bleeding still showed some dilated small bowel loops. The stomach is decompressed. She has had no NG output, now she started to have some bowel sounds. She has been disimpacted and is having a little bit of bowel movements. Hopefully, she can start some clear liquids later today or tomorrow morning. Again, we will defer this to General Surgery. Job ID: [id number]
[2018-07-15] MEDS ORDERED: Furosemide 40 MG/4 ML VIAL SLOW IVP SCH (15:15)
--- NOTE | 2018-07-15 18:49 | PDOC.GSPN ---
Surgery Progress Note: Subj - Subjective Narrative: Patient is feeling better today. She wasn't able to tolerate much of the enema due to anal pain but the small amount of fluid that they were able to instill did help soften up the stool in her rectum and she was then able to pass it. She had a large bowel movements followed by a smaller one which was more particulate. She denies any significant abdominal pain except for just a small amount on the left side. She does intermittently feel little queasy. Her NG tube was clamped yesterday by Dr. Tello since it wasn't putting out very much but the CT did show persistent partial small bowel obstruction. The contrast from her CT on the was still in the right colon although it had passed a transition point in the distal ileum. CT yesterday didn't show any source of blood loss and there is no report of blood in her stool. Assessment/plan: Diverticular abscess status post percutaneous drainage with complete evacuation of the abscess by repeat CT. Persistent partial small bowel obstruction, with some queasiness with the NG tube clamped. I have asked her nurse to check residuals and place it back to intermittent low wall suction if the residuals greater than 200. Otherwise continue current management. Surgery Progress Note: Obj - Vital signs Vital signs: Vital Signs - Most Recent Temp Pulse Resp BP Pulse Ox 98.8 F 79 24 H 188/79 H 100 07/15/18 15:26 07/15/18 08:59 07/14/18 18:00 07/15/18 17:51 07/14/18 18:00 Surgery Progress Note: Results - Labs Result Diagrams: 07/15/18 05:50 07/15/18 05:50 Lab results: Laboratory Results - last 24 hr 07/15/18 07/15/18 07/15/18 08:23 14:10 17:49 POC Glucose 169 H 231 H 232 H
[2018-07-15] MEDS: hydrALAZINE 25 MG TAB PO SCH (20:46)
[2018-07-15] MEDS: SODIUM CHLORIDE IV SCH (22:35)
[2018-07-15] MEDS: MULTIVITAMINS IV SCH (22:35)
[2018-07-15] MEDS: [UNRECOGNIZED DRUG - OTHER] IV SCH (22:35)
[2018-07-15] MEDS: POTASSIUM CHLORIDE IV SCH (22:35)
--- NOTE | 2018-07-15 22:40 | PDOC.PN ---
- Subjective Encounter Start Date: 07/15/18 Encounter Start Time: 11:30 Patient seen and examined for multiple problems. Had BM after enema. No new complaints. No overnight events - Objective Resuscitation Status - Order Detail: 07/01/18 09:58 Resuscitation Status Routine Resuscitation Status: PRTL: Chem-Intubation Discussed with: Patient Additional comments: Cardioversion also ok. No compressions. MAR Reviewed: Yes Vital Signs & Weight: Vital Signs (12 hours) Temp Pulse BP 07/15/18 20:46 88 182/75 H 07/15/18 19:30 99.6 F 07/15/18 17:51 188/79 H 07/15/18 15:26 98.8 F 07/15/18 12:12 98.3 F 143/50 H Weight Admit Weight 140 lb Weight 144 lb 8 oz Most Recent Monitor Data Heart Rate from ECG 76 NIBP 144/47 NIBP BP-Mean 79 Respiration from ECG 24 SpO2 100 I&O: 07/14/18 07/15/18 07/16/18 06:59 06:59 06:59 Intake Total 791.4 3298 1200 Output Total 609 1351 3110 Balance 182.4 1947 -191 Result Diagrams: 07/16/18 05:45 07/16/18 05:45 Additional Labs: Accuchecks 07/15/18 07/15/18 07/15/18 20:12 17:49 14:10 POC Glucose 191 H 232 H 231 H 07/15/18 07/15/18 08:23 04:04 POC Glucose 169 H 212 H EKG Reviewed by me: Yes (Tele paced) Phys Exam - Physical Examination Constitutional: NAD Respiratory: no wheezing, no rhonchi Cardiovascular: RRR, no rub Gastrointestinal: soft, positive bowel sounds mild gen tend +, no guarding, NG + Dx/Plan - Plan DVT proph w/SCDs 1. Lumbar radiculopathy, status post laminectomy. 2. Atrial flutter/atrial fibrillation with rapid ventricular response. 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 on Cardizem drip. Sotalol dced per EP 3. SBO/Severe Sepsis due to complicated diverticulitis with abscess s/o drainage 07/12 4. Chronic diastolic heart failure. 5. Chronic obstructive pulmonary disease. 6. Sjogren syndrome, on chronic steroids. 7. Hypothyroidism. 8. Constipation. 9. Irritable bowel syndrome. 10. Hypertension/Hyperlipidemia. 11. Hypokalemia/hypomagnesemia/hypophosphatemia 12. Elevated troponin secondary to demand ischemia. 13. Hyponatremia. 14. Acute on chronic anemia. 15. Moderate PEM - on TPN PLAN: Cont Zosyn Add Vancomycin due to Enterococcus Recheck HH later today Cont Cardizem drip/PO Metoprolol Cont other meds as below BMP in AM Microbiology 07/12/18 12:13 Abdomen - Abscess Bacterial Culture - Preliminary Escherichia coli Presumptive Escherichia coli 07/12/18 12:13 Abdomen - Abscess Bacterial Culture - Preliminary Escherichia coli Non-Hemolytic Streptococcus 07/12/18 12:13 Abdomen - Abscess Bacterial Culture - Preliminary Escherichia coli Review of Systems - Review of Systems Constitutional: negative: fever, chills, sweats, weakness, malaise, other Respiratory: negative: Cough, Dry, Shortness of Breath, Hemoptysis, SOB with Excertion, Pleuritic Pain, Sputum, Wheezing Cardiovascular: negative: chest pain, palpitations, orthopnea, paroxysmal nocturnal dyspnea, edema, light headedness, other - Medications/Allergies Allergies/Adverse Reactions: Allergies Allergy/AdvReac Type Severity Reaction Status Date / Time adhesive tape Allergy Verified 07/07/18 01:18 amlodipine Allergy "swelled Verified 10/20/17 14:12 in feet and legs" Medications: Current Medications Acetaminophen (Tylenol Elixir) 1,000 mg PO Q6H PRN PRN Reason: Mild Pain (1-3) Last Admin: 07/12/18 22:50 Dose: 1,000 mg Acetaminophen (Tylenol) 1,000 mg MI Q6H PRN PRN Reason: Mild Pain (1-3) Albuterol Sulfate (Ventolin) 2.5 mg NEB [id number] PRN PRN Reason: Wheezing Bisacodyl (Dulcolax) 10 mg MI DAILY [facility] Last Admin: 07/15/18 09:02 Dose: 10 mg Clonidine (Catapres) 0.1 mg PO Q4H PRN PRN Reason: Systolic BP > 180 Clonidine ([id number]) 0.3 mg TD Q7D [facility] Last Admin: 07/11/18 14:10 Dose: 0.3 mg Clonidine (Catapres) 0.1 mg PO BID [facility] Last Admin: 07/15/18 20:46 Dose: 0.1 mg Cyclobenzaprine HCl (Flexeril) 5 mg PO Q8H PRN PRN Reason: Muscle Spasm/PAIN Last Admin: 07/15/18 15:53 Dose: 5 mg Dextrose/Water (Dextrose 50%) 25 gm IVP PRN PRN PRN Reason: HYPOGLYCEMIA PROTOCOL Digoxin (Lanoxin) 0.125 mg SLOW IVP DAILY [facility] Last Admin: 07/15/18 08:59 Dose: 0.125 mg Enalaprilat (Vasotec) 2.5 mg SLOW IVP Q6HR [facility] Last Admin: 07/15/18 17:51 Dose: 2.5 mg Fentanyl (Sublimaze) 25 mcg SLOW IVP Q6H PRN PRN Reason: Severe Pain (7-10) Last Admin: 07/14/18 21:36 Dose: 25 mcg Furosemide (Lasix) 40 mg SLOW IVP DAILY [facility] Stop: 07/16/18 09:01 Glucagon (Glucagon) 1 mg IM PRN PRN PRN Reason: HYPOGLYCEMIA PROTOCOL Hydralazine HCl (Apresoline) 10 mg SLOW IVP Q4H PRN PRN Reason: Blood Pressure Hydralazine HCl (Apresoline) 100 mg PO BID [facility] Last Admin: 07/15/18 20:46 Dose: 100 mg Hyoscyamine Sulfate (Levsin Sl) 0.125 mg PO Q4H PRN PRN Reason: Abdominal Distention Last Admin: 07/13/18 02:48 Dose: 0.125 mg Piperacillin Sod/Tazobactam (Sod 3.375 gm/ Sodium Chloride) 100 mls @ 200 mls/ hr IVPB Q6HR [facility] Last Admin: 07/15/18 17:52 Dose: 100 mls Diltiazem HCl 125 mg/Miscellaneous Medication 1 each/ Sodium Chloride 125 mls @ 10 mls/hr IVPB INF [facility]; Protocol Last Admin: 07/15/18 01:51 Dose: 125 mls Dextrose/Water (D5w) 1,000 mls @ 0 mls/hr IV INF PRN PRN Reason: HYPOGLYCEMIA PROTOCOL Sodium Chloride 60 meq/Potassium Chloride 20 meq/Multivitamins 10 ml/ Chromium/ Copper/Manganese/Seleni/Zn 5 ml/ Insulin Human Regular 20 units/ Amino Acids/ Electrolytes/ Fat Emulsion Intravenous 2,290.2 mls @ 95.425 mls/hr IV 2200 [facility] Last Admin: 07/14/18 22:24 Dose: 2,290.2 mls Potassium Chloride/Dextrose/Sod Cl (D5 1/2 Ns W/20 Meq Kcl) 1,000 mls @ 0 mls/ hr IV .Q0M [facility] Last Admin: 07/15/18 05:58 Dose: 1,000 mls Vancomycin HCl 1 gm/ Device 200 mls @ 200 mls/hr IVPB ASDIR [facility] Insulin Human Regular (Humulin R) 0 units SC .MODERATE SLIDING SC PRN; Protocol PRN Reason: MODERATE SLIDING SCALE Last Admin: 07/15/18 17:52 Dose: 4 unit Iron/Minerals/Multivitamins (Theragran M) 1 tab PO DAILY [facility] Last Admin: 07/15/18 09:00 Dose: 1 tab Isosorbide Mononitrate (Imdur Er) 30 mg PO BID [facility] Last Admin: 07/15/18 20:46 Dose: 30 mg Labetalol HCl (Normodyne) 10 mg SLOW IVP Q4H PRN PRN Reason: Systolic BP > 180 Last Admin: 07/12/18 19:40 Dose: 10 mg Lisinopril (Zestril) 20 mg PO BID [facility] Last Admin: 07/15/18 20:47 Dose: 20 mg Magnesium Hydroxide (Milk Of Magnesium) 30 ml PO Q6H PRN PRN Reason: Constipation Last Admin: 07/08/18 17:03 Dose: 30 ml Metoprolol Tartrate (Lopressor) 100 mg PO BID [facility] Last Admin: 07/15/18 20:46 Dose: 100 mg Mineral Oil/White Petrolatum (Eucerin Cream) 0 gm TOP BIDPRN PRN PRN Reason: Dry Skin Miscellaneous Medication (Pharmacy To Dose) 1 each IVPB ONE PRN PRN Reason: Pharmacy to dose Nitroglycerin (Nitrostat) 0.4 mg SL Q5MIN PRN PRN Reason: Chest Pain Ondansetron HCl (Zofran) 4 mg SLOW IVP Q6H PRN PRN Reason: Nausea/Vomiting Last Admin: 07/14/18 10:08 Dose: 4 mg Pantoprazole Sodium (Protonix) 40 mg IVP DAILY [facility] Last Admin: 03/03/19 09:01 Dose: 40 mg Polyethylene Glycol (Miralax) 17 gm PO DAILY [facility] Last Admin: 07/15/18 08:59 Dose: 17 gm Prednisone (Prednisone) 15 mg PO QAM-WM [facility] Last Admin: 07/15/18 09:01 Dose: 15 mg Pregabalin (Lyrica) 25 mg PO Q8HR [facility] Last Admin: 07/15/18 15:53 Dose: 25 mg Promethazine HCl (Phenergan) 12.5 mg IVPB Q6H PRN PRN Reason: Nausea/Vomiting Last Admin: 07/12/18 19:35 Dose: 12.5 mg Rosuvastatin Calcium (Crestor) 10 mg PO DAILY [facility] Last Admin: 07/15/18 08:59 Dose: 10 mg Saccharomyces Boulardii (Florastor) 250 mg PO DAILY [facility] Last Admin: 07/15/18 08:59 Dose: 250 mg Sodium Chloride (Flush - Normal Saline) 10 ml IVF Q12HR [facility] Last Admin: 07/15/18 20:47 Dose: 10 ml Sodium Chloride (Flush - Normal Saline) 10 ml IVF PRN PRN PRN Reason: Saline Flush Last Admin: 07/11/18 18:08 Dose: 10 ml Sodium Chloride (Normal Saline Pf) 10 ml FS PRN PRN PRN Reason: RECONSTITUTION Last Admin: 07/15/18 09:01 Dose: 10 ml Throat Lozenges (Cepastat Lozenges) 1 ric PO Q2H PRN PRN Reason: Sore Throat Last Admin: 07/15/18 20:49 Dose: 1 ric Thyroid (Ralston Thyroid) 60 mg PO 0600 [facility] Last Admin: 07/15/18 06:05 Dose: 60 mg Tramadol HCl (Ultram) 50 mg PO Q6H PRN PRN Reason: Pain Last Admin: 07/15/18 15:54 Dose: 50 mg
[2018-07-15] MEDS: Vancomycin HCl 1 GM in Premix Bag 1 BAG IVPB SCH (23:53)
[2018-07-16] MEDS: Fentanyl 100 MCG/2 ML VIAL SLOW IVP PRN (00:06)
[2018-07-16] MEDS: Piperacillin/Tazobactam 3.375 GM in Sodium Chloride 0.9% 100 ML IVPB SCH ×5 (00:10→22:59)
[2018-07-16] MEDS: Diltiazem HCl 125 MG, Admixture Fee 1 EACH in Sodium Chloride 0.9% 100 ML IVPB SCH ×2 (00:13→14:39)
[2018-07-16] MEDS: Enalaprilat Dihydrate 1.25 MG/ML VIAL SLOW IVP SCH (05:43)
[2018-07-16] MEDS: Pregabalin 25 MG CAP PO SCH ×3 (05:45→21:17)
[2018-07-16] MEDS: Thyroid 60 MG TAB PO SCH (05:46)
[2018-07-16 06:06] LABS: #Eosinphils 0.2 thou/uL (0.0-0.7); #Lymphocytes 2.4 thou/uL (1.20-3.40); #Monocytes 0.9 thou/uL (0.11-0.59); #Neutrophils 10.8 thou/uL (1.40-6.50); %Basophils 0.1 % (0.0-1.0); %Eosinophils 1.3 % (0.0-10.0); %Lymphocytes 16.8 % (21.0-51.0); %Neutrophils 75.7 % (42.0-75.0); Hemoglobin 9.5 g/dL (12.0-16.0); Mean Corpuscular HGB CONC 30.9 g/dL (32.0-36.0); Mean Corpuscular Hemoglobin 26.7 pg (27.0-31.0); Mean Corpuscular Volume 86.1 fL (78.0-98.0); Mean Platelet Volume 7.3 fL (7.4-10.4); Platelet Count 319 thou/uL (130-400); RBC Distribution Width 16.9 % (11.5-14.5); Red Blood Cell (RBC) Count 3.55 mill/uL (4.20-5.40); White Blood Cell (WBC) Count 14.3 thou/uL (4.8-10.8)
[2018-07-16 06:24] LABS: Phosphorus 2.2 mg/dL (2.3-4.7)
[2018-07-16 06:28] LABS: Anion Gap 11 mmol/L (10-20); BUN (Urea Nitrogen) 15 mg/dL (9.8-20.1); Calc. Creatinine Clearance 86 mL/min (70-130); Calcium 8.3 mg/dL (7.8-10.44); Carbon Dioxide 27 mmol/L (23-31); Chloride 100 mmol/L (98-107); Estimated GFR-MDRD Greater than 90; Glucose 161 mg/dL (83-110); Magnesium 1.6 mg/dL (1.6-2.6); Potassium 4.1 mmol/L (3.5-5.1); Sodium 134 mmol/L (136-145)
[2018-07-16] MEDS ORDERED: Furosemide 40 MG/4 ML VIAL SLOW IVP SCH (09:00)
[2018-07-16] MEDS: Polyethylene Glycol 3350 17 GM Packet PO SCH (09:12)
[2018-07-16] MEDS: hydrALAZINE 25 MG TAB PO SCH ×2 (09:13→20:51)
[2018-07-16] MEDS: cloNIDine 0.1 MG TAB PO SCH (09:13)
[2018-07-16] MEDS: Pantoprazole 40 MG VIAL IVP SCH (09:13)
[2018-07-16] MEDS: predniSONE 5 MG TAB PO SCH (09:13)
[2018-07-16] MEDS: Sodium Chloride 0.9% (PF) 10 ML VIAL FS PRN (09:13)
[2018-07-16] MEDS: Saccharomyces boulardii 250 MG CAP PO SCH (09:14)
[2018-07-16] MEDS: Bisacodyl 10 MG SUPP PR SCH (09:14)
[2018-07-16] MEDS: Lisinopril 20 MG TAB PO SCH ×2 (09:14→20:51)
[2018-07-16] MEDS: Sotalol HCl 80 MG TAB PO SCH ×2 (09:14→20:52)
[2018-07-16] MEDS: Multivitamin W/ Minerals 1 TAB PO SCH (09:14)
[2018-07-16] MEDS: Rosuvastatin 10 MG TAB PO SCH (09:14)
[2018-07-16] MEDS: Metoprolol Tartrate 100 MG TAB PO SCH ×2 (09:15→20:51)
[2018-07-16] MEDS: Digoxin 0.5 MG/2 ML AMP SLOW IVP SCH (09:15)
--- NOTE | 2018-07-16 10:47 | PDOC.CTH ---
Cardiology Progress Note - Subjective The pt seen and examined. No overnight events. No cardiac complaints. She tolerates Ice chip. - Objective Vital Signs Temp Pulse 07/16/18 09:15 88 07/16/18 07:39 97.9 F 07/16/18 04:00 98.8 F 07/15/18 23:23 98.8 F Admit Weight 140 lb Weight 144 lb 8 oz 07/15/18 07/16/18 07/17/18 06:59 06:59 06:59 Intake Total 3298 3240 Output Total 1351 4768 Balance 1947 -1528 - Physical Examination General/Neuro: alert & oriented x3 Neck: no JVD present Lungs: other: (coarse and diminished at bases) Abdomen: soft Extremities: other: (No edema) - Telemetry Telemetry Rhythm: SR - Labs Result Diagrams: 07/16/18 05:45 07/16/18 05:45 Troponin/CKMB Troponin I 0.068 ng/mL (< 0.028) H 07/04/18 15:33 - Assessment/Plan 1. 2:1 Aflutter/Afib with RVR with s/p DCCV on 07/10/2018 - Converted back to SR over the weekend; On Diltiazem drip 10mg/h; Sotalol and Metoprolol. Lovenox 30mg qd since she has Watchman's device. 2. HNP (herniated nucleus pulposus with myelopathy), thoracic on 07/04/2018 3. HTN - On Bblocker, H[place], Clonidine 0.3mg TID; stop Vasotec 2.5mg q6 hrs and Clonidin 0.3mg patch q 7 days. 4. Chronic diastolic HF (grade III with Echo in 05/2017) - Lasix IV push given yesterday and today; resume Lasix 40mg po qd from tomorrow; on metoprolol and lisinopril 5. COPD - on 1.5 LNC 6. Hyperlipidemia - on Statin 7. Hypothyroidism - 8. Sjogren's syndrome - on Prednisone 9. s/p CT drainage of diverticular abscess on 07/12/2018 - NG tube is clamped now. MAR reviewed Pt. seen and eval. by me. I agree with the A/P by the MANAGER CATEGORY. I will decrease the dose of the IV dilt. She is maintaining NSR. Chest clear. RRR. No edema. Review of Systems - Review of Systems Constitutional: reports: weakness EENTM: reports: no symptoms reported Respiratory: reports: no symptoms reported Cardiac (ROS): reports: no symptoms reported ABD/GI: reports: no symptoms reported : reports: no symptoms reported Musculoskeletal: reports: no symptoms reported
[2018-07-16] MEDS ORDERED: cloNIDine 0.2 MG TAB PO SCH (11:00)
--- NOTE | 2018-07-16 11:09 | PQF ---
DATE: 07-16-18 ATTN: DR. TIM MCKEE Please exercise your independent, professional judgment in responding to the clarification form. Clinical indicators are provided on the bottom of this form for your review Diagnosis: SEVERE SEPSIS Present on Admission (POA): [ ] Yes [ ] No [ ] Unable to determine Coding guidelines require hospitals to identify whether a diagnosis was present on admission (POA) or not. To accurately assign the appropriate POA indicator, this information must be clearly documented within the medical record. CLINICAL INDICATORS - SIGNS / SYMPTOMS / LABS WBC: 07-02-18: 12.8 07-04-18: 22.8 07-05-18: 20.2 07-16-18: 14.3 CRP: 07-11-18: 26.26 PULSE: 07-11-18: 141, 122, 123, 108, [address] MCKEE 07-11-18: LEUKOCYTOSIS, UNLIKELY TO BE INFECTIOUS PN DR. MCKEE 07-12-18: PATIENT SEEN AND EXAMINED FOR SEPSIS CONSULT NOTE DR. HATHAWAY 07-14-18: SEVERE SEPSIS, PERFORATED DIVERTICULITIS, S/ P PERCUTANEOUS DRAIN X 2 RISK FACTORS:CONSULT NOTE DR. HATHAWAY 07-14-18: SEVERE SEPSIS, PERFORATED DIVERTICULITIS, S/P PERCUTANEOUS DRAIN X [address] MCKEE 07-13-18: SEPSIS, DIVERTICULAR ABSCESS/ AFIB TREATMENT: MAR: 07-11-18: ZOSYN IV, VANCOMYCIN (This form is maintained as a part of the permanent medical record) 2014 [employer] All Rights Reserved CHRISTINA [email or web address] Office: [phone] [facility]ITALKiki
--- NOTE | 2018-07-16 13:45 | RAD ---
KUB COMPARISON: Prior CT from two days prior. FINDINGS: The enteric tube tip is at the gastric body. Multiple compression fractures with indwelling cement. Moderate vascular calcification of the aorta. There continue to be mildly distended loops of small bowel in the left lower quadrant of the abdomen. There continues to be contrast within the ascending colon. IMPRESSION: Likely chronic partial small bowel obstruction, left lower quadrant. POS: [facility]
[2018-07-16] MEDS: cloNIDine 0.3 MG TAB PO SCH ×2 (14:00→20:51)
[2018-07-16] MEDS ORDERED: Diltiazem HCl 125 MG, Admixture Fee 1 EACH in Sodium Chloride 0.9% 100 ML IVPB SCH (14:31)
[2018-07-16] MEDS ORDERED: cloNIDine 0.1 MG TAB PO SCH (15:00)
--- NOTE | 2018-07-16 15:45 | PDOC.CTH ---
Cardiology Progress Note - Subjective EP PROGRESS NOTE: 07/16/18 Seen as follow up for for atrial flutter. Converted to SR. Feels Better. No new cardiac concerns. PO meds given via NGT. - Objective Vital Signs Temp Pulse Pulse Pulse BP BP BP 07/16/18 15:21 98.4 F 07/16/18 14:00 174/61 H 07/16/18 11:25 98.9 F 07/16/18 09:32 96 94 175/125 H 182/99 H 07/16/18 09:15 88 07/16/18 07:39 97.9 F 07/16/18 04:00 98.8 F Pulse Ox 07/16/18 15:21 07/16/18 14:00 07/16/18 11:25 07/16/18 09:32 96 07/16/18 09:15 07/16/18 07:39 07/16/18 04:00 Admit Weight 140 lb Weight 144 lb 8 oz 07/15/18 07/16/18 07/17/18 06:59 06:59 06:59 Intake Total 3298 3240 Output Total 1351 4768 Balance 1947 -1528 - Physical Examination General/Neuro: alert & oriented x3, NAD Lungs: CTA Heart: RRR Abdomen: no HSM - Telemetry Telemetry Rhythm: SR - Labs Result Diagrams: 07/16/18 05:45 07/16/18 05:45 Troponin/CKMB Troponin I 0.068 ng/mL (< 0.028) H 07/04/18 15:33 - Assessment/Plan 1. Atypical atrial flutter - recurrent despite CV 07/10 - likely provoked by recent spinal surgery/diskectomy - Over weekend held sotalol, will resume, hence absorption more consistent at this point with NGT off suction. Continue rate control with dilt gtt PRN\ and IV meds as needed once PICC is in place. - watchman in place, no need for OAC 2. Dual chamber PPM - normal operation 3. COPD 4. Diastolic heart failure, chronic 5. Herniated disk -s/p diskectomy - pain 6. SBO vs illeus: NG tube on suction 7. Abd abscess - s/p drain by IR on 07/12
--- NOTE | 2018-07-16 16:16 | PRG ---
DATE OF SERVICE: 07/16/2018 SUBJECTIVE: Ms. Carrera remains in the intermediate care unit. She still has nasogastric tube in place. She still has a drain in her left lower quadrant pericolonic abscess. She is receiving TPN. She is much more alert today. She tells me she feels much better. She notes she had a large bowel movement earlier today and has been passing flatus as well. Her nurse tells me that she has little out her nasogastric tube and residuals are checked. OBJECTIVE: VITAL SIGNS: On examination today, temperature is 98.4, pulse is 88, blood pressure 174/61. LUNGS: Clear to auscultation. ABDOMEN: Soft and nontender. Bowel sounds are present and some of them are little tympanitic. She has minimal tenderness. LABORATORY DATA: Her white blood cell count is up a little bit of 14.3, hemoglobin is 9.5, platelet count 319. Chemistries reveal that her electrolytes are more or less normal. Her phosphorus is a little low at 2.2. Cultures of her abscess reveal Enterococcus and E. coli. The Enterococcus, as expected, is sensitive to vancomycin and penicillins. The E. coli sensitive to the Zosyn that she has been started on. It is resistant to quinolones, however. ASSESSMENT: She is clearly improving after drainage of pericolonic abscess. Her ileus seems to be resolving. Given that essentially nothing is coming out of her nasogastric tube, I would recommend NG tube removal. I have ordered this along with continuation of ice chips and sips of clear liquids. She should continue on MiraLAX as well and hopefully increase her activity. As her ileus continues to resolve, I would hope to be able to advance her diet over the next couple of days. Job ID: [id number]
[2018-07-16] MEDS: traMADol HCl 50 MG TAB PO PRN (21:09)
[2018-07-16] MEDS: Cepastat Lozenges 1 LOZ PO PRN (21:09)
[2018-07-16] MEDS ORDERED: SODIUM CHLORIDE IV SCH (22:00)
[2018-07-16] MEDS ORDERED: [UNRECOGNIZED DRUG - OTHER] IV SCH (22:00)
[2018-07-16] MEDS ORDERED: POTASSIUM CHLORIDE IV SCH (22:00)
[2018-07-16] MEDS ORDERED: MULTIVITAMINS IV SCH (22:00)
[2018-07-16] MEDS ORDERED: FAT EMULSION IV SCH (22:00)
[2018-07-16] MEDS: Vancomycin HCl 1 GM in Premix Bag 1 BAG IVPB SCH (22:45)
[2018-07-16] MEDS: SODIUM CHLORIDE IV SCH ×2 (22:50→22:55)
[2018-07-16] MEDS: FAT EMULSION IV SCH (22:50)
[2018-07-16] MEDS: SODIUM ACETATE IV SCH (22:50)
[2018-07-16] MEDS: [UNRECOGNIZED DRUG - OTHER] IV SCH (22:50)
[2018-07-16] MEDS: POTASSIUM CHLORIDE IV SCH (22:55)
[2018-07-16] MEDS: MULTIVITAMINS IV SCH (22:55)
[2018-07-16] MEDS: [UNRECOGNIZED DRUG - OTHER] IV SCH (22:55)
--- NOTE | 2018-07-16 23:41 | PDOC.PN ---
- Subjective Encounter Start Date: 07/16/18 Encounter Start Time: 12:00 Patient seen and examined for Sepsis. Feels better. No new complaints. No overnight events - Objective Resuscitation Status - Order Detail: 07/01/18 09:58 Resuscitation Status Routine Resuscitation Status: PRTL: Chem-Intubation Discussed with: Patient Additional comments: Cardioversion also ok. No compressions. MAR Reviewed: Yes Vital Signs & Weight: Vital Signs (12 hours) Temp Pulse BP 07/16/18 20:52 83 165/73 H 07/16/18 20:51 83 165/73 H 07/16/18 19:58 99.4 F 07/16/18 15:21 98.4 F 07/16/18 14:00 174/61 H Weight Admit Weight 140 lb Weight 144 lb 8 oz Most Recent Monitor Data Heart Rate from ECG 75 NIBP 165/73 NIBP BP-Mean 103 Respiration from ECG 18 SpO2 99 I&O: 07/15/18 07/16/18 07/17/18 06:59 06:59 06:59 Intake Total 3298 3240 1960 Output Total 1351 4720 2010 Balance 1947 -1528 -50 Result Diagrams: 07/16/18 05:45 07/16/18 05:45 Additional Labs: Accuchecks 07/16/18 07/16/18 07/16/18 16:24 10:06 03:50 POC Glucose 242 H 159 H 147 H EKG Reviewed by me: Yes (Tele SR) Phys Exam - Physical Examination Constitutional: NAD Respiratory: no wheezing, no rhonchi Cardiovascular: RRR, no rub Gastrointestinal: soft, non-tender, positive bowel sounds Musculoskeletal: no edema Dx/Plan - Plan DVT proph w/lovenox, DVT proph w/SCDs 1. SBO/Severe Sepsis due to complicated diverticulitis with abscess s/o drainage 07/12 2. Atrial flutter/atrial fibrillation with rapid ventricular response. 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 on Cardizem drip/Sotalol 3. Lumbar radiculopathy, status post laminectomy. 4. Chronic diastolic heart failure. 5. Chronic obstructive pulmonary disease. 6. Sjogren syndrome, on chronic steroids. 7. Hypothyroidism. 8. Moderate PEM - on TPN 9. Irritable bowel syndrome. 10. Hypertension/Hyperlipidemia. 11. Hypokalemia/hypomagnesemia/hypophosphatemia 12. Elevated troponin secondary to demand ischemia. 13. Hyponatremia. 14. Acute on chronic anemia. PLAN: Cont Zosyn/Vancomycin AM labs Cont current meds as below Cont PT/OT Review of Systems - Review of Systems Respiratory: negative: Cough, Dry, Shortness of Breath, Hemoptysis, SOB with Excertion, Pleuritic Pain, Sputum, Wheezing Cardiovascular: negative: chest pain, palpitations, orthopnea, paroxysmal nocturnal dyspnea, edema, light headedness, other - Medications/Allergies Allergies/Adverse Reactions: Allergies Allergy/AdvReac Type Severity Reaction Status Date / Time adhesive tape Allergy Verified 07/07/18 01:18 amlodipine Allergy "swelled Verified 10/20/17 14:12 in feet and legs" Medications: Current Medications Acetaminophen (Tylenol Elixir) 1,000 mg PO Q6H PRN PRN Reason: Mild Pain (1-3) Last Admin: 07/12/18 22:50 Dose: 1,000 mg Acetaminophen (Tylenol) 1,000 mg HI Q6H PRN PRN Reason: Mild Pain (1-3) Albuterol Sulfate (Ventolin) 2.5 mg NEB [id number] PRN PRN Reason: Wheezing Bisacodyl (Dulcolax) 10 mg HI DAILY [facility] Last Admin: 07/16/18 09:14 Dose: 10 mg Clonidine (Catapres) 0.1 mg PO Q4H PRN PRN Reason: Systolic BP > 180 Clonidine (Catapres) 0.3 mg PO TID [facility] Last Admin: 07/16/18 20:51 Dose: 0.3 mg Cyclobenzaprine HCl (Flexeril) 5 mg PO Q8H PRN PRN Reason: Muscle Spasm/PAIN Last Admin: 07/15/18 15:53 Dose: 5 mg Dextrose/Water (Dextrose 50%) 25 gm IVP PRN PRN PRN Reason: HYPOGLYCEMIA PROTOCOL Digoxin (Lanoxin) 0.125 mg SLOW IVP DAILY [facility] Last Admin: 07/16/18 09:15 Dose: 0.125 mg Fentanyl (Sublimaze) 25 mcg SLOW IVP Q6H PRN PRN Reason: Severe Pain (7-10) Last Admin: 07/16/18 00:06 Dose: 25 mcg Furosemide (Lasix) 40 mg PO DAILY-[facility] Glucagon (Glucagon) 1 mg IM PRN PRN PRN Reason: HYPOGLYCEMIA PROTOCOL Hydralazine HCl (Apresoline) 10 mg SLOW IVP Q4H PRN PRN Reason: Blood Pressure Hydralazine HCl (Apresoline) 100 mg PO BID [facility] Last Admin: 07/16/18 20:51 Dose: 100 mg Hyoscyamine Sulfate (Levsin Sl) 0.125 mg PO Q4H PRN PRN Reason: Abdominal Distention Last Admin: 07/13/18 02:48 Dose: 0.125 mg Piperacillin Sod/Tazobactam (Sod 3.375 gm/ Sodium Chloride) 100 mls @ 200 mls/ hr IVPB Q6HR [facility] Last Admin: 07/16/18 22:59 Dose: 100 mls Dextrose/Water (D5w) 1,000 mls @ 0 mls/hr IV INF PRN PRN Reason: HYPOGLYCEMIA PROTOCOL Potassium Chloride/Dextrose/Sod Cl (D5 1/2 Ns W/20 Meq Kcl) 1,000 mls @ 0 mls/ hr IV .Q0M [facility] Last Admin: 07/15/18 05:58 Dose: 1,000 mls Vancomycin HCl 1 gm/ Device 200 mls @ 200 mls/hr IVPB 2300 [facility] Last Admin: 07/16/18 22:45 Dose: 200 mls Diltiazem HCl 125 mg/Miscellaneous Medication 1 each/ Sodium Chloride 125 mls @ 5 mls/hr IVPB INF [facility]; Protocol Fat Emulsion Intravenous 100 ml/ Sodium Acetate 40 meq/Sodium Chloride 60 meq/ Potassium Chloride 40 meq/Potassium Phosphate 30 mmol/Calcium Gluconate 10 meq/ Magnesium Sulfate 15 meq/Multivitamins 10 ml/ Chromium/Copper/Manganese/Seleni/ Zn 5 ml/ Insulin Human Regular 20 units/ Dextrose/Water/ Amino Acids/ Sterile Water 1,555.6336 mls @ 64.818 mls/hr IV 2200 [facility] Last Admin: 07/16/18 22:50 Dose: 1,555.6336 mls Insulin Human Regular (Humulin R) 0 units SC .MODERATE SLIDING SC PRN; Protocol PRN Reason: MODERATE SLIDING SCALE Last Admin: 07/15/18 17:52 Dose: 4 unit Iron/Minerals/Multivitamins (Theragran M) 1 tab PO DAILY [facility] Last Admin: 07/16/18 09:14 Dose: 1 tab Isosorbide Mononitrate (Imdur Er) 30 mg PO BID [facility] Last Admin: 07/16/18 20:52 Dose: 30 mg Labetalol HCl (Normodyne) 10 mg SLOW IVP Q4H PRN PRN Reason: Systolic BP > 180 Last Admin: 07/12/18 19:40 Dose: 10 mg Lisinopril (Zestril) 20 mg PO BID [facility] Last Admin: 07/16/18 20:51 Dose: 20 mg Magnesium Hydroxide (Milk Of Magnesium) 30 ml PO Q6H PRN PRN Reason: Constipation Last Admin: 07/08/18 17:03 Dose: 30 ml Metoprolol Tartrate (Lopressor) 100 mg PO BID [facility] Last Admin: 07/16/18 20:51 Dose: 100 mg Mineral Oil/White Petrolatum (Eucerin Cream) 0 gm TOP BIDPRN PRN PRN Reason: Dry Skin Miscellaneous Medication (Pharmacy To Dose) 1 each IVPB PRN PRN PRN Reason: Pharmacy to dose Nitroglycerin (Nitrostat) 0.4 mg SL Q5MIN PRN PRN Reason: Chest Pain Ondansetron HCl (Zofran) 4 mg SLOW IVP Q6H PRN PRN Reason: Nausea/Vomiting Last Admin: 07/14/18 10:08 Dose: 4 mg Pantoprazole Sodium (Protonix) 40 mg IVP DAILY [facility] Last Admin: 07/16/18 09:13 Dose: 40 mg Polyethylene Glycol (Miralax) 17 gm PO DAILY [facility] Last Admin: 07/16/18 09:12 Dose: 17 gm Prednisone (Prednisone) 15 mg PO QAM-[facility] Last Admin: 07/16/18 09:13 Dose: 15 mg Pregabalin (Lyrica) 25 mg PO Q8HR [facility] Last Admin: 07/16/18 21:17 Dose: 25 mg Promethazine HCl (Phenergan) 12.5 mg IVPB Q6H PRN PRN Reason: Nausea/Vomiting Last Admin: 07/12/18 19:35 Dose: 12.5 mg Rosuvastatin Calcium (Crestor) 10 mg PO DAILY [facility] Last Admin: 07/16/18 09:14 Dose: 10 mg Saccharomyces Boulardii (Florastor) 250 mg PO DAILY [facility] Last Admin: 07/16/18 09:14 Dose: 250 mg Sodium Chloride (Flush - Normal Saline) 10 ml IVF Q12HR [facility] Last Admin: 07/16/18 20:53 Dose: 10 ml Sodium Chloride (Flush - Normal Saline) 10 ml IVF PRN PRN PRN Reason: Saline Flush Last Admin: 07/11/18 18:08 Dose: 10 ml Sodium Chloride (Normal Saline Pf) 10 ml FS PRN PRN PRN Reason: RECONSTITUTION Last Admin: 07/16/18 09:13 Dose: 10 ml Sotalol HCl (Betapace) 120 mg PO BID [facility] Last Admin: 07/16/18 20:52 Dose: 120 mg Throat Lozenges (Cepastat Lozenges) 1 ric PO Q2H PRN PRN Reason: Sore Throat Last Admin: 07/16/18 21:09 Dose: 1 ric Thyroid (Babcock Thyroid) 60 mg PO 0600 [facility] Last Admin: 07/16/18 05:46 Dose: 60 mg Tramadol HCl (Ultram) 50 mg PO Q6H PRN PRN Reason: Pain Last Admin: 07/16/18 21:09 Dose: 50 mg
[2018-07-17] MEDS: Cepastat Lozenges 1 LOZ PO PRN (05:09)
[2018-07-17] MEDS: Piperacillin/Tazobactam 3.375 GM in Sodium Chloride 0.9% 100 ML IVPB SCH ×3 (05:09→17:26)
[2018-07-17 06:22] LABS: #Eosinphils 0.2 thou/uL (0.0-0.7); #Monocytes 0.9 thou/uL (0.11-0.59); #Neutrophils 7.9 thou/uL (1.40-6.50); %Basophils 0.3 % (0.0-1.0); %Eosinophils 1.5 % (0.0-10.0); %Lymphocytes 18.4 % (21.0-51.0); %Monocytes 7.7 % (0.0-10.0); Hemoglobin 9.1 g/dL (12.0-16.0); Mean Corpuscular HGB CONC 31.5 g/dL (32.0-36.0); Mean Corpuscular Hemoglobin 27.1 pg (27.0-31.0); Mean Platelet Volume 6.9 fL (7.4-10.4); Platelet Count 310 thou/uL (130-400); RBC Distribution Width 17.1 % (11.5-14.5); Red Blood Cell (RBC) Count 3.35 mill/uL (4.20-5.40)
[2018-07-17] MEDS: Thyroid 60 MG TAB PO SCH (06:36)
[2018-07-17] MEDS: Pregabalin 25 MG CAP PO SCH ×3 (06:36→21:22)
[2018-07-17] MEDS: Furosemide 40 MG TAB PO SCH (06:36)
[2018-07-17 06:37] LABS: Anion Gap 13 mmol/L (10-20); BUN (Urea Nitrogen) 16 mg/dL (9.8-20.1); Calc. Creatinine Clearance 92 mL/min (70-130); Calcium 8.3 mg/dL (7.8-10.44); Carbon Dioxide 23 mmol/L (23-31); Chloride 99 mmol/L (98-107); Estimated GFR-MDRD Greater than 90; Glucose 112 mg/dL (83-110); Magnesium 1.4 mg/dL (1.6-2.6); Potassium 3.8 mmol/L (3.5-5.1); Sodium 131 mmol/L (136-145)
[2018-07-17 06:56] LABS: Phosphorus 2.9 mg/dL (2.3-4.7)
[2018-07-17] MEDS ORDERED: Magnesium Sulfate 4 GM in Sodium Chloride 0.9% 250 ML 250 ML IVPB SCH (07:15)
[2018-07-17] MEDS: Polyethylene Glycol 3350 17 GM Packet PO SCH (08:48)
[2018-07-17] MEDS: predniSONE 5 MG TAB PO SCH (08:49)
[2018-07-17] MEDS: hydrALAZINE 25 MG TAB PO SCH ×3 (08:50→21:19)
[2018-07-17] MEDS: Bisacodyl 10 MG SUPP PR SCH (08:50)
[2018-07-17] MEDS: cloNIDine 0.3 MG TAB PO SCH ×3 (08:50→21:20)
[2018-07-17] MEDS: Sotalol HCl 80 MG TAB PO SCH ×2 (08:52→21:18)
[2018-07-17] MEDS: Lisinopril 20 MG TAB PO SCH ×2 (08:53→21:21)
[2018-07-17] MEDS: Multivitamin W/ Minerals 1 TAB PO SCH (08:53)
[2018-07-17] MEDS: Metoprolol Tartrate 100 MG TAB PO SCH ×2 (08:54→21:20)
[2018-07-17] MEDS: Rosuvastatin 10 MG TAB PO SCH (08:55)
[2018-07-17] MEDS: Pantoprazole 40 MG VIAL IVP SCH (08:57)
[2018-07-17] MEDS: Digoxin 0.5 MG/2 ML AMP SLOW IVP SCH (08:57)
[2018-07-17] MEDS: Saccharomyces boulardii 250 MG CAP PO SCH (09:01)
[2018-07-17] MEDS ORDERED: Diltiazem HCl 125 MG, Admixture Fee 1 EACH in Sodium Chloride 0.9% 100 ML IVPB SCH (09:22)
--- NOTE | 2018-07-17 09:22 | PDOC.CTH ---
Cardiology Progress Note - Subjective The pt seen and examined. No overnight events. No cardiac complaints. She has had several loose stools this AM. - Objective Vital Signs Temp Pulse BP 07/17/18 08:57 75 07/17/18 08:53 158/58 H 07/17/18 08:52 75 158/58 H 07/17/18 08:50 75 158/58 H 07/17/18 07:30 99.3 F 07/17/18 04:00 99.3 F 07/17/18 00:00 98.1 F Admit Weight 140 lb Weight 144 lb 8 oz 07/16/18 07/17/18 07/18/18 06:59 06:59 06:59 Intake Total 3240 3610 Output Total 4754 2670 Balance -1528 940 - Physical Examination General/Neuro: alert & oriented x3 Neck: no JVD present Lungs: other: (diminished at bases) Heart: RRR Abdomen: soft Extremities: other: (mild generalized edema) - Telemetry Telemetry Rhythm: SR A paced - Labs Result Diagrams: 07/17/18 06:14 07/17/18 06:14 Troponin/CKMB Troponin I 0.068 ng/mL (< 0.028) H 07/04/18 15:33 - Assessment/Plan 1. 2:1 Aflutter/Afib with RVR with s/p DCCV on 07/10/2018 - remains in SR since last weekend; On Diltiazem drip 5mg/h, which will changed to 180mg PO daily; On Sotalol and Metoprolol. Lovenox 30mg qd since she has Watchman's device. 2. HNP (herniated nucleus pulposus with myelopathy), thoracic on 07/04/2018 3. HTN - Increase Hydoralazine to TID. On Bblocker, HILLARY, Clonidine 0.3mg TID; stop Vasotec 2.5mg q6 hrs and Clonidin 0.3mg patch q 7 days. 4. Chronic diastolic HF (grade III with Echo in 05/2017) - stable with Lasix 40mg po qd from tomorrow; on metoprolol and lisinopril 5. COPD - on 1.5 LNC 6. Hyperlipidemia - on Statin 7. Hypothyroidism - 8. Sjogren's syndrome - on Prednisone 9. s/p CT drainage of diverticular abscess on 07/12/2018 - NG tube is clamped now. MAR reviewed Pt. seen and eval. by me. I agree with the A/P by the AWS SOLUTION ARCHITECT. Chest clear. RRR.Overall she is getting better. Decrease the dilt. Review of Systems - Review of Systems Constitutional: reports: weakness EENTM: reports: no symptoms reported Respiratory: reports: no symptoms reported Cardiac (ROS): reports: no symptoms reported ABD/GI: reports: abdomen distended, diarrhea : reports: no symptoms reported Musculoskeletal: reports: no symptoms reported
--- NOTE | 2018-07-17 14:16 | PDOC.PN ---
- Subjective Encounter Start Date: 07/17/18 Encounter Start Time: 12:00 Patient seen and examined for Sepsis. NG tube dced. No fever/chills. No new complaints. No overnight events - Objective Resuscitation Status - Order Detail: 07/01/18 09:58 Resuscitation Status Routine Resuscitation Status: PRTL: Chem-Intubation Discussed with: Patient Additional comments: Cardioversion also ok. No compressions. MAR Reviewed: Yes Vital Signs & Weight: Vital Signs (12 hours) Temp Pulse BP 07/17/18 12:09 98.7 F 07/17/18 08:57 75 07/17/18 08:53 158/58 H 07/17/18 08:52 75 158/58 H 07/17/18 08:50 75 158/58 H 07/17/18 07:30 99.3 F 07/17/18 04:00 99.3 F Weight Admit Weight 140 lb Weight 144 lb 8 oz Most Recent Monitor Data Heart Rate from ECG 75 NIBP 153/52 NIBP BP-Mean 85 Respiration from ECG 19 SpO2 94 I&O: 07/16/18 07/17/18 07/18/18 06:59 06:59 06:59 Intake Total 3240 3610 Output Total 4768 2670 Balance -1528 940 Result Diagrams: 07/17/18 06:14 07/17/18 06:14 Additional Labs: Accuchecks 07/17/18 07/17/18 07/17/18 12:05 05:35 00:09 POC Glucose 190 H 99 172 H 07/16/18 16:24 POC Glucose 242 H EKG Reviewed by me: Yes (Tele SR) Phys Exam - Physical Examination Constitutional: NAD Respiratory: no wheezing, no rhonchi Cardiovascular: RRR, no rub Gastrointestinal: soft, positive bowel sounds mild gen tend, no guarding Neurological: moves all 4 limbs Dx/Plan - Plan DVT proph w/SCDs 1. SBO/Severe Sepsis due to complicated diverticulitis with abscess s/o drainage 07/12 2. Atrial flutter/atrial fibrillation with rapid ventricular response. 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 on Cardizem drip/Sotalol 3. Lumbar radiculopathy, status post laminectomy. 4. Chronic diastolic heart failure. 5. Chronic obstructive pulmonary disease. 6. Sjogren syndrome, on chronic steroids. 7. Hypothyroidism. 8. Moderate PEM - on TPN 9. Irritable bowel syndrome. 10. Hypertension/Hyperlipidemia. 11. Hypokalemia/hypomagnesemia/hypophosphatemia 12. Elevated troponin secondary to demand ischemia. 13. Hyponatremia. 14. Acute on chronic anemia. PLAN: Cont Zosyn/Vancomycin for Ecoli and Enterococcus Replace Magnessium Change Digoxin and Protonix to PO Cont current meds as below Cont therapy AM labs On Clear liqd diet Review of Systems - Review of Systems Respiratory: negative: Cough, Dry, Shortness of Breath, Hemoptysis, SOB with Excertion, Pleuritic Pain, Sputum, Wheezing Cardiovascular: negative: chest pain, palpitations, orthopnea, paroxysmal nocturnal dyspnea, edema, light headedness, other - Medications/Allergies Allergies/Adverse Reactions: Allergies Allergy/AdvReac Type Severity Reaction Status Date / Time adhesive tape Allergy Verified 07/07/18 01:18 amlodipine Allergy "swelled Verified 10/20/17 14:12 in feet and legs" Medications: Current Medications Acetaminophen (Tylenol Elixir) 1,000 mg PO Q6H PRN PRN Reason: Mild Pain (1-3) Last Admin: 07/12/18 22:50 Dose: 1,000 mg Acetaminophen (Tylenol) 1,000 mg [place] Q6H PRN PRN Reason: Mild Pain (1-3) Albuterol Sulfate (Ventolin) 2.5 mg NEB [id number] PRN PRN Reason: Wheezing Bisacodyl (Dulcolax) 10 mg [place] DAILY [facility] Last Admin: 07/17/18 08:50 Dose: Not Given Clonidine (Catapres) 0.1 mg PO Q4H PRN PRN Reason: Systolic BP > 180 Clonidine (Catapres) 0.3 mg PO TID [facility] Last Admin: 07/17/18 08:50 Dose: 0.3 mg Cyclobenzaprine HCl (Flexeril) 5 mg PO Q8H PRN PRN Reason: Muscle Spasm/PAIN Last Admin: 07/15/18 15:53 Dose: 5 mg Dextrose/Water (Dextrose 50%) 25 gm IVP PRN PRN PRN Reason: HYPOGLYCEMIA PROTOCOL Digoxin (Lanoxin) 0.125 mg PO DAILY [facility] Diltiazem HCl (Cardizem Cd) 180 mg PO DAILY [facility] Fentanyl (Sublimaze) 25 mcg SLOW IVP Q6H PRN PRN Reason: Severe Pain (7-10) Last Admin: 07/16/18 00:06 Dose: 25 mcg Furosemide (Lasix) 40 mg PO DAILY-[facility] Last Admin: 07/17/18 06:36 Dose: 40 mg Glucagon (Glucagon) 1 mg IM PRN PRN PRN Reason: HYPOGLYCEMIA PROTOCOL Hydralazine HCl (Apresoline) 10 mg SLOW IVP Q4H PRN PRN Reason: Blood Pressure Hydralazine HCl (Apresoline) 100 mg PO TID [facility] Hyoscyamine Sulfate (Levsin Sl) 0.125 mg PO Q4H PRN PRN Reason: Abdominal Distention Last Admin: 07/13/18 02:48 Dose: 0.125 mg Piperacillin Sod/Tazobactam (Sod 3.375 gm/ Sodium Chloride) 100 mls @ 200 mls/ hr IVPB Q6HR [facility] Last Admin: 07/17/18 12:13 Dose: 100 mls Dextrose/Water (D5w) 1,000 mls @ 0 mls/hr IV INF PRN PRN Reason: HYPOGLYCEMIA PROTOCOL Potassium Chloride/Dextrose/Sod Cl (D5 1/2 Ns W/20 Meq Kcl) 1,000 mls @ 0 mls/ hr IV .Q0M [facility] Last Admin: 07/15/18 05:58 Dose: 1,000 mls Vancomycin HCl 1 gm/ Device 200 mls @ 200 mls/hr IVPB 2300 [facility] Last Admin: 07/16/18 22:45 Dose: 200 mls Fat Emulsion Intravenous 100 ml/ Sodium Acetate 40 meq/Sodium Chloride 60 meq/ Potassium Chloride 40 meq/Potassium Phosphate 30 mmol/Calcium Gluconate 10 meq/ Magnesium Sulfate 15 meq/Multivitamins 10 ml/ Chromium/Copper/Manganese/Seleni/ Zn 5 ml/ Insulin Human Regular 20 units/ Dextrose/Water/ Amino Acids/ Sterile Water 1,555.6336 mls @ 64.818 mls/hr IV 2200 [facility] Last Admin: 07/16/18 22:50 Dose: 1,555.6336 mls Diltiazem HCl 125 mg/Miscellaneous Medication 1 each/ Sodium Chloride 125 mls @ 5 mls/hr IVPB INF SANDEE; Protocol Insulin Human Regular (Humulin R) 0 units SC .MODERATE SLIDING SC PRN; Protocol PRN Reason: MODERATE SLIDING SCALE Last Admin: 07/15/18 17:52 Dose: 4 unit Iron/Minerals/Multivitamins (Theragran M) 1 tab PO DAILY [facility] Last Admin: 07/17/18 08:53 Dose: 1 tab Isosorbide Mononitrate (Imdur Er) 30 mg PO BID [facility] Last Admin: 07/17/18 08:55 Dose: 30 mg Labetalol HCl (Normodyne) 10 mg SLOW IVP Q4H PRN PRN Reason: Systolic BP > 180 Last Admin: 07/12/18 19:40 Dose: 10 mg Lisinopril (Zestril) 20 mg PO BID [facility] Last Admin: 07/17/18 08:53 Dose: 20 mg Magnesium Hydroxide (Milk Of Magnesium) 30 ml PO Q6H PRN PRN Reason: Constipation Last Admin: 07/08/18 17:03 Dose: 30 ml Metoprolol Tartrate (Lopressor) 100 mg PO BID [facility] Last Admin: 07/17/18 08:54 Dose: 100 mg Mineral Oil/White Petrolatum (Eucerin Cream) 0 gm TOP BIDPRN PRN PRN Reason: Dry Skin Miscellaneous Medication (Pharmacy To Dose) 1 each IVPB PRN PRN PRN Reason: Pharmacy to dose Nitroglycerin (Nitrostat) 0.4 mg SL Q5MIN PRN PRN Reason: Chest Pain Nystatin (Mycostatin Powder) 0 gm TOP BID [facility] Ondansetron HCl (Zofran) 4 mg SLOW IVP Q6H PRN PRN Reason: Nausea/Vomiting Last Admin: 07/14/18 10:08 Dose: 4 mg Pantoprazole Sodium (Protonix) 40 mg PO DAILY [facility] Polyethylene Glycol (Miralax) 17 gm PO DAILY [facility] Last Admin: 07/17/18 08:48 Dose: 17 gm Prednisone (Prednisone) 15 mg PO QAM-WM [facility] Last Admin: 07/17/18 08:49 Dose: 15 mg Pregabalin (Lyrica) 25 mg PO Q8HR [facility] Last Admin: 07/17/18 06:36 Dose: 25 mg Promethazine HCl (Phenergan) 12.5 mg IVPB Q6H PRN PRN Reason: Nausea/Vomiting Last Admin: 07/12/18 19:35 Dose: 12.5 mg Rosuvastatin Calcium (Crestor) 10 mg PO DAILY [facility] Last Admin: 07/17/18 08:55 Dose: 10 mg Saccharomyces Boulardii (Florastor) 250 mg PO DAILY [facility] Last Admin: 07/17/18 09:01 Dose: 250 mg Sodium Chloride (Flush - Normal Saline) 10 ml IVF Q12HR [facility] Last Admin: 07/17/18 09:02 Dose: 10 ml Sodium Chloride (Flush - Normal Saline) 10 ml IVF PRN PRN PRN Reason: Saline Flush Last Admin: 07/11/18 18:08 Dose: 10 ml Sodium Chloride (Normal Saline Pf) 10 ml FS PRN PRN PRN Reason: RECONSTITUTION Last Admin: 07/16/18 09:13 Dose: 10 ml Sotalol HCl (Betapace) 120 mg PO BID [facility] Last Admin: 07/17/18 08:52 Dose: 120 mg Throat Lozenges (Cepastat Lozenges) 1 ric PO Q2H PRN PRN Reason: Sore Throat Last Admin: 07/17/18 05:09 Dose: 1 ric Thyroid ([place] Thyroid) 60 mg PO 0600 [facility] Last Admin: 07/17/18 06:36 Dose: 60 mg Tramadol HCl (Ultram) 50 mg PO Q6H PRN PRN Reason: Pain Last Admin: 07/16/18 21:09 Dose: 50 mg
--- NOTE | 2018-07-17 16:07 | PDOC.CTH ---
Cardiology Progress Note - Subjective EP PROGRESS NOTE: 07/17/18 Seen as follow up for for atrial flutter. Converted to SR spontaneously. Feels markedly better today. No new cardiac concerns. NG has been removed. Taking PO intake now. - Objective Vital Signs Temp Pulse BP Pulse Ox 07/17/18 15:27 98.2 F 07/17/18 14:43 75 131/75 07/17/18 14:42 131/75 07/17/18 12:09 98.7 F 07/17/18 08:57 75 07/17/18 08:53 158/58 H 07/17/18 08:52 75 158/58 H 07/17/18 08:50 75 158/58 H 07/17/18 08:00 95 07/17/18 07:30 99.3 F Admit Weight 140 lb Weight 144 lb 8 oz 07/16/18 07/17/18 07/18/18 06:59 06:59 06:59 Intake Total 3240 3610 Output Total 4768 2670 Balance -1528 940 - Physical Examination General/Neuro: alert & oriented x3, NAD Neck: carotid US brisk, no JVD present Lungs: CTA, unlabored respirations Heart: PMI normal, RRR Abdomen: NT/ND, soft - Telemetry Telemetry Rhythm: SR - Labs Result Diagrams: 07/17/18 06:14 07/17/18 06:14 Troponin/CKMB Troponin I 0.068 ng/mL (< 0.028) H 07/04/18 15:33 - Assessment/Plan 1. Atypical atrial flutter - recurrent despite CV 07/10 - likely provoked by recent spinal surgery/diskectomy - Sotalol started 07/16/18 -3/5 AM Dose #2: QTc 443msec - Continue rate control with dilt gtt PRN and IV meds as needed - watchman in place, no need for OAC 2. Dual chamber PPM - normal operation -AP,VS rhythm 3. COPD 4. Diastolic heart failure, chronic 5. Herniated disk -s/p diskectomy - pain 6. SBO vs illeus: NG tube removed. 7. Abd abscess - s/p drain by IR on 07/12 No changes to therapy by EP. Continue Sotalol.
--- NOTE | 2018-07-17 16:15 | EKG ---
Test Reason : 2 HR POST SOTOLLO Blood Pressure : / mmHG Vent. Rate : 076 BPM Atrial Rate : 076 BPM P-R Int : 242 ms QRS Dur : 088 ms QT Int : 380 ms P-R-T Axes : 063 057 044 degrees QTc Int : 427 ms Electronic atrial pacemaker with 1st degree A-V block Nonspecific ST abnormality Abnormal ECG Confirmed by MAGGIE HERNANDEZ ([id number]) on 07/17/2018 4:14:36 PM Referred By: MIKAELA Confirmed By:MAGGIE HERNANDEZ
--- NOTE | 2018-07-17 16:24 | EKG ---
Test Reason : Blood Pressure : / mmHG Vent. Rate : 077 BPM Atrial Rate : 077 BPM P-R Int : 278 ms QRS Dur : 090 ms QT Int : 392 ms P-R-T Axes : 078 049 059 degrees QTc Int : 443 ms Electronic atrial pacemaker Nonspecific T wave abnormality Abnormal ECG Confirmed by MAGGIE HERNANDEZ ([id number]) on 07/17/2018 4:23:56 PM Referred By: MIKAELA Confirmed By:MAGGIE HERNANDEZ
--- NOTE | 2018-07-17 19:13 | PRG ---
DATE OF SERVICE: 07/17/2018 SUBJECTIVE: Arabella Carrera's NG tube out. She is eating, feeling better. OBJECTIVE: VITAL SIGNS: Stable. She is afebrile. ABDOMEN: Soft and nontender. Positive bowel sounds. LABORATORY DATA: White count 11, hemoglobin 9.1, and platelet count 310. Sodium 131, potassium 3.8, and BUN and creatinine 16 and 0.35. ASSESSMENT: 1. Partial bowel obstruction, resolved. 2. Diverticular disease with abscess is improving. 3. Fecal impaction, resolved. PLAN: Continue present medications. Bowel regimen. Advance diet slowly. NG tube has been removed. Job ID: [id number]
--- NOTE | 2018-07-17 21:02 | PRG ---
DATE OF SERVICE: 07/17/2018 SUBJECTIVE: Arabella Carrera looks 100% better than she looked on Monday. She said her abdomen is only barely hurting now. She is afebrile. Blood pressure 145/47, respiratory rate was in the 20s. An order has been written to remove her Beth, but she has only stood once and she could barely stand, so I think with her fall risk, her Beth needs to stay in. OBJECTIVE: LUNGS: Clear. HEART: Regular rhythm. ABDOMEN: Soft. LABORATORY DATA: White count 11, hemoglobin 9.1, platelets 310,000. Sodium 131, potassium 3.8, chloride 99, bicarb 23, BUN 16, and creatinine 0.53. IMPRESSION: 1. Perforated diverticulitis. 2. Asthmatic bronchitis. Clinically, stable. 3. Extreme deconditioning. She wants to start doing exercises in bed and was telling me once she was going to tell the physical therapy, she needed to do. 4. Partial bowel obstruction. PLAN: Slowly advance her diet. Slowly advance her physical therapy. Keep her Beth in for now. Continue with low-dose steroids and she is steroid dependent. We would not cut her below the 50 mg a day that she is on for now. Job ID: [id number]
[2018-07-17] MEDS: Nystatin Powder 15 GM BOT TOP SCH (21:22)
[2018-07-17] MEDS: Hyoscyamine Sulfate SL 0.125 mg Tablet PO PRN (21:22)
[2018-07-17] MEDS: traMADol HCl 50 MG TAB PO PRN (21:27)
[2018-07-17] MEDS: Cyclobenzaprine 10 MG TAB PO PRN (21:27)
[2018-07-17 22:32] LABS: Vancomycin, Trough 8.7 ug/mL
[2018-07-17] MEDS ORDERED: Vancomycin HCl 1.25 GM in Sodium Chloride 0.9% 250 ML 250 ML IVPB SCH (22:45)
[2018-07-17] MEDS: SODIUM CHLORIDE IV SCH (23:01)
[2018-07-17] MEDS: SODIUM ACETATE IV SCH (23:01)
[2018-07-17] MEDS: [UNRECOGNIZED DRUG - OTHER] IV SCH (23:01)
[2018-07-17] MEDS: FAT EMULSION IV SCH (23:01)
[2018-07-18] MEDS: Piperacillin/Tazobactam 3.375 GM in Sodium Chloride 0.9% 100 ML IVPB SCH ×5 (00:53→23:33)
[2018-07-18] MEDS: Cepastat Lozenges 1 LOZ PO PRN ×2 (04:53→22:12)
[2018-07-18 05:07] LABS: #Eosinphils 0.1 thou/uL (0.0-0.7); #Lymphocytes 2.1 thou/uL (1.20-3.40); #Monocytes 0.9 thou/uL (0.11-0.59); %Basophils 0.3 % (0.0-1.0); %Eosinophils 1.3 % (0.0-10.0); %Lymphocytes 18.8 % (21.0-51.0); %Monocytes 7.9 % (0.0-10.0); %Neutrophils 71.8 % (42.0-75.0); Hemoglobin 8.8 g/dL (12.0-16.0); Mean Corpuscular HGB CONC 31.7 g/dL (32.0-36.0); Mean Corpuscular Hemoglobin 26.9 pg (27.0-31.0); Mean Corpuscular Volume 84.9 fL (78.0-98.0); Mean Platelet Volume 7.2 fL (7.4-10.4); Platelet Count 325 thou/uL (130-400); RBC Distribution Width 17.5 % (11.5-14.5); Red Blood Cell (RBC) Count 3.27 mill/uL (4.20-5.40); White Blood Cell (WBC) Count 11.1 thou/uL (4.8-10.8)
[2018-07-18 05:29] LABS: Anion Gap 12 mmol/L (10-20); BUN (Urea Nitrogen) 23 mg/dL (9.8-20.1); Calc. Creatinine Clearance 80 mL/min (70-130); Calcium 8.4 mg/dL (7.8-10.44); Carbon Dioxide 25 mmol/L (23-31); Chloride 102 mmol/L (98-107); Estimated GFR-MDRD Greater than 90; Glucose 141 mg/dL (83-110); Phosphorus 3.2 mg/dL (2.3-4.7); Potassium 3.8 mmol/L (3.5-5.1); Sodium 135 mmol/L (136-145)
[2018-07-18] MEDS: Pregabalin 25 MG CAP PO SCH ×3 (06:22→21:39)
[2018-07-18] MEDS: Thyroid 60 MG TAB PO SCH (06:22)
[2018-07-18] MEDS: Furosemide 40 MG TAB PO SCH (06:30)
[2018-07-18] MEDS: cloNIDine 0.3 MG TAB PO SCH ×3 (08:54→21:37)
[2018-07-18] MEDS: Polyethylene Glycol 3350 17 GM Packet PO SCH (08:54)
[2018-07-18] MEDS: Rosuvastatin 10 MG TAB PO SCH (08:55)
[2018-07-18] MEDS: predniSONE 5 MG TAB PO SCH (08:55)
[2018-07-18] MEDS: Saccharomyces boulardii 250 MG CAP PO SCH (08:55)
[2018-07-18] MEDS: hydrALAZINE 25 MG TAB PO SCH ×3 (08:55→21:34)
[2018-07-18] MEDS: Bisacodyl 10 MG SUPP PR SCH (08:55)
[2018-07-18] MEDS: Digoxin 0.125 MG TAB PO SCH (08:56)
[2018-07-18] MEDS: Sotalol HCl 80 MG TAB PO SCH ×2 (08:56→21:39)
[2018-07-18] MEDS: Lisinopril 20 MG TAB PO SCH ×2 (08:56→21:37)
[2018-07-18] MEDS: Multivitamin W/ Minerals 1 TAB PO SCH (08:57)
[2018-07-18] MEDS: Metoprolol Tartrate 100 MG TAB PO SCH ×2 (08:57→21:38)
--- NOTE | 2018-07-18 08:57 | PRG ---
DATE OF SERVICE: 07/18/2018 SUBJECTIVE: Ms. Carrera remains on the [facility]. She has been hospitalized on this admission since July 01. She had her diverticular abscess drained on July 12. She continues to receive TPN, antibiotics and physical therapy. She tolerated clear liquids yesterday. She had another bowel movement yesterday. She has no specific complaints today. OBJECTIVE: VITAL SIGNS: On examination, she is afebrile, pulse is 75, and blood pressure 130/48. LUNGS: Clear to auscultation. ABDOMEN: Obese and protuberant, but it is soft and there are normoactive bowel sounds. LABORATORY DATA: Show white blood cell count of 11.1 with a hemoglobin of 8.8. Electrolytes are essentially normal. ASSESSMENT: 1. She is doing well following drainage of her diverticular abscess. 2. Her ileus is resolving appropriately. 3. I will advance her to full liquid diet today. 4. I will decrease her total parenteral nutrition down to 40 mL/h with the intention of discontinuing her total parenteral nutrition tomorrow and advancing her to a solid diet. 5. It would be appropriate at this point to begin discharge planning to whatever her next stage will be. I am planning no surgical intervention for her diverticulitis at this point. Job ID: [id number]
[2018-07-18] MEDS: Nystatin Powder 15 GM BOT TOP SCH ×2 (08:59→21:42)
--- NOTE | 2018-07-18 09:20 | PDOC.CTH ---
Cardiology Progress Note - Subjective The pt seen and examined. No overnight events. No cardiac complaints. - Objective Vital Signs Temp Pulse BP 07/18/18 08:56 75 143/57 H 07/18/18 08:55 75 143/57 H 07/18/18 08:54 146/68 H 07/18/18 07:07 98.5 F 07/18/18 04:00 98.3 F 07/18/18 00:00 97.9 F 07/17/18 21:21 143/57 H Admit Weight 140 lb Weight 144 lb 8 oz 07/17/18 07/18/18 07/19/18 06:59 06:59 06:59 Intake Total 3610 3610 Output Total 2670 2657 Balance 940 953 - Physical Examination General/Neuro: alert & oriented x3 Neck: no JVD present Lungs: CTA Heart: RRR Abdomen: soft Extremities: other: (No edema) - Telemetry Telemetry Rhythm: SR with A paced - Labs Result Diagrams: 07/18/18 04:52 07/18/18 04:52 Troponin/CKMB Troponin I 0.068 ng/mL (< 0.028) H 07/04/18 15:33 - Assessment/Plan 1. 2:1 Aflutter/Afib with RVR with s/p DCCV on 07/10/2018 - remains in SR since 07/15/2018; On Diltiazem 180mg PO daily; On Sotalol 120mg BID and Metoprolol 100mg BID. On Lovenox 30mg qd since she has Watchman's device. 2. HNP (herniated nucleus pulposus with myelopathy), thoracic on 07/04/2018 3. HTN - Increase Hydoralazine to TID. On Bblocker, HILLARY, Clonidine 0.3mg TID; stop Vasotec 2.5mg q6 hrs and Clonidin 0.3mg patch q 7 days. 4. Chronic diastolic HF (grade III with Echo in 05/2017) - stable with Lasix 40mg po qd from tomorrow; on metoprolol and lisinopril 5. COPD - on 1.5 LNC 6. Hyperlipidemia - on Statin 7. Hypothyroidism - 8. Sjogren's syndrome - on Prednisone 9. s/p CT drainage of diverticular abscess on 07/12/2018 - tolerates Ice chips and PO meds; Full liquid diet from today; managed by Dr Alfonso. MAR reviewed Pt. seen and eval. by me. I agree with the A/P by the CHARACTER IMPERSONATOR. She is getting better on a daily basis. Appreciate EP input. Review of Systems - Review of Systems Constitutional: reports: weakness EENTM: reports: no symptoms reported Respiratory: reports: no symptoms reported Cardiac (ROS): reports: no symptoms reported ABD/GI: reports: no symptoms reported : reports: no symptoms reported Musculoskeletal: reports: no symptoms reported
--- NOTE | 2018-07-18 12:44 | PDOC.CTH ---
Cardiology Progress Note - Subjective EP PROGRESS NOTE: 07/18/18 Seen as follow up for for atrial flutter. Converted to SR spontaneously. Feeling better each day. No new cardiac concerns. Taking PO intake now. - Objective Vital Signs Temp Pulse Pulse Pulse BP BP BP 07/18/18 11:18 75 75 126/60 132/59 L 07/18/18 11:00 98.9 F 07/18/18 08:56 75 143/57 H 07/18/18 08:55 75 143/57 H 07/18/18 08:54 146/68 H 07/18/18 08:00 07/18/18 07:07 98.5 F 07/18/18 04:00 98.3 F Pulse Ox 07/18/18 11:18 07/18/18 11:00 07/18/18 08:56 07/18/18 08:55 07/18/18 08:54 07/18/18 08:00 100 07/18/18 07:07 07/18/18 04:00 Admit Weight 140 lb Weight 144 lb 8 oz 07/17/18 07/18/18 07/19/18 06:59 06:59 06:59 Intake Total 3610 3610 Output Total 2670 2657 Balance 940 953 - Physical Examination General/Neuro: alert & oriented x3, NAD Neck: carotid US brisk, no JVD present Lungs: CTA, unlabored respirations Heart: PMI normal, RRR Abdomen: NT/ND, soft - Telemetry Telemetry Rhythm: SR - Labs Result Diagrams: 07/18/18 04:52 07/18/18 04:52 Troponin/CKMB Troponin I 0.068 ng/mL (< 0.028) H 07/04/18 15:33 - Assessment/Plan 1. Atypical atrial flutter - recurrent despite CV 07/10 - likely provoked by recent spinal surgery/diskectomy - Sotalol started 07/16/18 -3/5 AM Dose #2: QTc 443msec -3/5 PM Dose #3: QTc 452ms -3/6 AM Dose #4: EKG pending - Continue rate control with dilt gtt PRN and IV meds as needed - watchman in place, no need for OAC 2. Dual chamber PPM - normal operation -AP,VS rhythm 3. COPD 4. Diastolic heart failure, chronic 5. Herniated disk -s/p diskectomy - pain 6. SBO vs illeus: NG tube removed. 7. Abd abscess - s/p drain by IR on 07/12 No changes to therapy by EP. Continue Sotalol.
[2018-07-18] MEDS: traMADol HCl 50 MG TAB PO PRN ×2 (12:57→21:40)
--- NOTE | 2018-07-18 16:47 | PRG ---
DATE OF SERVICE: 07/18/2018 SUBJECTIVE: Arabella Carrera says her abdomen is a little more uncomfortable today. She is complaining about the left lower quadrant. OBJECTIVE: VITAL SIGNS: She is afebrile, heart rate 75, and blood pressure 125/55. LUNGS: Clear. HEART: Regular rhythm. ABDOMEN: Soft. LABORATORY DATA: White count 11.1, hemoglobin 8.8, and platelets 325. Sodium 135, potassium 3.8, chloride 102, bicarb 25, BUN 23, and creatinine 0.6. IMPRESSION: 1. Diverticular abscess. Her exam is no more tender than yesterday, but she is complaining more discomfort. She still has drains in place. 2. Asthmatic bronchitis. Clinically stable. PLAN: Continue to follow. Job ID: [id number]
--- NOTE | 2018-07-18 17:05 | EKG ---
Test Reason : TIME Blood Pressure : / mmHG Vent. Rate : 077 BPM Atrial Rate : 077 BPM P-R Int : 360 ms QRS Dur : 094 ms QT Int : 400 ms P-R-T Axes : 080 061 060 degrees QTc Int : 452 ms Atrial-paced rhythm with prolonged AV conduction Nonspecific ST abnormality Abnormal ECG Confirmed by MAGGIE HERNANDEZ ([id number]) on 07/18/2018 5:04:45 PM Referred By: VINNY Confirmed By:MAGGIE HERNANDEZ
--- NOTE | 2018-07-18 17:14 | EKG ---
Test Reason : Blood Pressure : / mmHG Vent. Rate : 076 BPM Atrial Rate : 076 BPM P-R Int : 358 ms QRS Dur : 088 ms QT Int : 380 ms P-R-T Axes : 068 042 -79 degrees QTc Int : 427 ms Electronic atrial pacemaker Abnormal ECG Confirmed by MAGGIE HERNANDEZ ([id number]) on 07/18/2018 5:13:55 PM Referred By: TYRON Confirmed By:MAGGIE HERNANDEZ
--- NOTE | 2018-07-18 21:36 | PDOC.PN ---
- Subjective Encounter Start Date: 07/18/18 Encounter Start Time: 09:15 Patient seen and examined for Sepsis. Tolerating full liqd diet. No new complaints. No overnight events - Objective Resuscitation Status - Order Detail: 07/01/18 09:58 Resuscitation Status Routine Resuscitation Status: PRTL: Chem-Intubation Discussed with: Patient Additional comments: Cardioversion also ok. No compressions. MAR Reviewed: Yes Vital Signs & Weight: Vital Signs (12 hours) Temp Pulse Pulse Pulse BP BP BP 07/18/18 20:00 98.9 F 07/18/18 17:11 146/68 H 07/18/18 17:06 75 146/68 H 07/18/18 15:59 98.7 F 07/18/18 11:18 75 75 126/60 132/59 L 07/18/18 11:00 98.9 F Pulse Ox 07/18/18 20:00 100 07/18/18 17:11 07/18/18 17:06 07/18/18 15:59 07/18/18 11:18 07/18/18 11:00 Weight Admit Weight 140 lb Weight 144 lb 8 oz Most Recent Monitor Data Heart Rate from ECG 75 NIBP 119/57 NIBP BP-Mean 77 Respiration from ECG 24 SpO2 93 I&O: 07/17/18 07/18/18 07/19/18 06:59 06:59 06:59 Intake Total 3610 3610 1410 Output Total 2670 2657 2010 Balance 940 953 -600 Result Diagrams: 07/19/18 05:44 07/19/18 05:44 Additional Labs: Accuchecks 07/18/18 07/18/18 07/18/18 16:17 10:28 06:04 POC Glucose 215 H 198 H 155 H 07/18/18 00:28 POC Glucose 147 H EKG Reviewed by me: Yes (Tele paced) Phys Exam - Physical Examination Constitutional: NAD Respiratory: no wheezing, no rhonchi Cardiovascular: RRR, no rub Gastrointestinal: soft, positive bowel sounds Neurological: moves all 4 limbs Dx/Plan - Plan DVT proph w/SCDs 1. SBO/Severe Sepsis due to complicated diverticulitis with abscess s/o drainage 07/12 2. Atrial flutter/atrial fibrillation with rapid ventricular response. 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 on Sotalol 3. Lumbar radiculopathy, status post laminectomy. 4. Chronic diastolic heart failure. 5. Chronic obstructive pulmonary disease. 6. Sjogren syndrome, on chronic steroids. 7. Hypothyroidism. 8. Moderate PEM - on TPN 9. Irritable bowel syndrome. 10. Hypertension/Hyperlipidemia. 11. Hypokalemia/hypomagnesemia/hypophosphatemia 12. Elevated troponin secondary to demand ischemia. 13. Hyponatremia. 14. Acute on chronic anemia. PLAN: Cont current Atbx - Zosyn/Vancomycin for Ecoli and Enterococcus Cont current meds as below Cont therapy AM labs Advance diet per Surgery Suture removal after 3 weeks from surgery (Per NSG) Review of Systems - Review of Systems Cardiovascular: negative: chest pain, palpitations, orthopnea, paroxysmal nocturnal dyspnea, edema, light headedness, other Gastrointestinal: negative: Nausea, Vomiting, Abdominal Pain, Diarrhea, Constipation, Melena, Hematochezia, Other - Medications/Allergies Allergies/Adverse Reactions: Allergies Allergy/AdvReac Type Severity Reaction Status Date / Time adhesive tape Allergy Verified 07/07/18 01:18 amlodipine Allergy "swelled Verified 10/20/17 14:12 in feet and legs" Medications: Current Medications Acetaminophen (Tylenol Elixir) 1,000 mg PO Q6H PRN PRN Reason: Mild Pain (1-3) Last Admin: 07/12/18 22:50 Dose: 1,000 mg Acetaminophen (Tylenol) 1,[address] Q6H PRN PRN Reason: Mild Pain (1-3) Albuterol Sulfate (Ventolin) 2.5 mg NEB [id number] PRN PRN Reason: Wheezing Bisacodyl (Dulcolax) [address] DAILY [facility] Last Admin: 07/18/18 08:55 Dose: 10 mg Clonidine (Catapres) 0.1 mg PO Q4H PRN PRN Reason: Systolic BP > 180 Clonidine (Catapres) 0.3 mg PO TID [facility] Last Admin: 07/18/18 17:11 Dose: 0.3 mg Cyclobenzaprine HCl (Flexeril) 5 mg PO Q8H PRN PRN Reason: Muscle Spasm/PAIN Last Admin: 07/17/18 21:27 Dose: 5 mg Dextrose/Water (Dextrose 50%) 25 gm IVP PRN PRN PRN Reason: HYPOGLYCEMIA PROTOCOL Digoxin (Lanoxin) 0.125 mg PO DAILY [facility] Last Admin: 07/18/18 08:56 Dose: 0.125 mg Diltiazem HCl (Cardizem Cd) 180 mg PO DAILY [facility] Last Admin: 07/18/18 08:56 Dose: 180 mg Fentanyl (Sublimaze) 25 mcg SLOW IVP Q6H PRN PRN Reason: Severe Pain (7-10) Last Admin: 07/16/18 00:06 Dose: 25 mcg Furosemide (Lasix) 40 mg PO DAILY-AC [facility] Last Admin: 07/18/18 06:30 Dose: 40 mg Glucagon (Glucagon) 1 mg IM PRN PRN PRN Reason: HYPOGLYCEMIA PROTOCOL Hydralazine HCl (Apresoline) 10 mg SLOW IVP Q4H PRN PRN Reason: Blood Pressure Hydralazine HCl (Apresoline) 100 mg PO TID [facility] Last Admin: 07/18/18 17:06 Dose: 100 mg Hyoscyamine Sulfate (Levsin Sl) 0.125 mg PO Q4H PRN PRN Reason: Abdominal Distention Last Admin: 07/17/18 21:22 Dose: 0.125 mg Piperacillin Sod/Tazobactam (Sod 3.375 gm/ Sodium Chloride) 100 mls @ 200 mls/ hr IVPB Q6HR [facility] Last Admin: 07/18/18 17:07 Dose: 100 mls Dextrose/Water (D5w) 1,000 mls @ 0 mls/hr IV INF PRN PRN Reason: HYPOGLYCEMIA PROTOCOL Potassium Chloride/Dextrose/Sod Cl (D5 1/2 Ns W/20 Meq Kcl) 1,000 mls @ 0 mls/ hr IV .Q0M [facility] Last Admin: 07/15/18 05:58 Dose: 1,000 mls Fat Emulsion Intravenous 100 ml/ Sodium Acetate 40 meq/Sodium Chloride 60 meq/ Potassium Chloride 40 meq/Potassium Phosphate 30 mmol/Calcium Gluconate 10 meq/ Magnesium Sulfate 15 meq/Multivitamins 10 ml/ Chromium/Copper/Manganese/Seleni/ Zn 5 ml/ Insulin Human Regular 20 units/ Dextrose/Water/ Amino Acids/ Sterile Water 1,555.6336 mls @ 64.818 mls/hr IV 2200 [facility] Last Admin: 07/17/18 23:01 Dose: 1,555.6336 mls Diltiazem HCl 125 mg/Miscellaneous Medication 1 each/ Sodium Chloride 125 mls @ 5 mls/hr IVPB INF [facility]; Protocol Vancomycin HCl 1.25 gm/ Sodium (Chloride) 250 mls @ 166.667 mls/hr IVPB 2200 [facility] Insulin Human Regular (Humulin R) 0 units SC .MODERATE SLIDING SC PRN; Protocol PRN Reason: MODERATE SLIDING SCALE Last Admin: 07/15/18 17:52 Dose: 4 unit Iron/Minerals/Multivitamins (Theragran M) 1 tab PO DAILY [facility] Last Admin: 07/18/18 08:57 Dose: 1 tab Isosorbide Mononitrate (Imdur Er) 30 mg PO BID [facility] Last Admin: 07/18/18 08:55 Dose: 30 mg Labetalol HCl (Normodyne) 10 mg SLOW IVP Q4H PRN PRN Reason: Systolic BP > 180 Last Admin: 07/12/18 19:40 Dose: 10 mg Lisinopril (Zestril) 20 mg PO BID [facility] Last Admin: 07/18/18 08:56 Dose: 20 mg Magnesium Hydroxide (Milk Of Magnesium) 30 ml PO Q6H PRN PRN Reason: Constipation Last Admin: 07/08/18 17:03 Dose: 30 ml Metoprolol Tartrate (Lopressor) 100 mg PO BID [facility] Last Admin: 07/18/18 08:57 Dose: 100 mg Mineral Oil/White Petrolatum (Eucerin Cream) 0 gm TOP BIDPRN PRN PRN Reason: Dry Skin Miscellaneous Medication (Pharmacy To Dose) 1 each IVPB PRN PRN PRN Reason: Pharmacy to dose Nitroglycerin (Nitrostat) 0.4 mg SL Q5MIN PRN PRN Reason: Chest Pain Nystatin (Mycostatin Powder) 0 gm TOP BID [facility] Last Admin: 07/18/18 08:59 Dose: 1 applic Ondansetron HCl (Zofran) 4 mg SLOW IVP Q6H PRN PRN Reason: Nausea/Vomiting Last Admin: 07/14/18 10:08 Dose: 4 mg Pantoprazole Sodium (Protonix) 40 mg PO DAILY [facility] Last Admin: 07/18/18 08:59 Dose: 40 mg Polyethylene Glycol (Miralax) 17 gm PO DAILY [facility] Last Admin: 07/18/18 08:54 Dose: 17 gm Prednisone (Prednisone) 15 mg PO QAM-WM [facility] Last Admin: 07/18/18 08:55 Dose: 15 mg Pregabalin (Lyrica) 25 mg PO Q8HR [facility] Last Admin: 07/18/18 12:53 Dose: 25 mg Promethazine HCl (Phenergan) 12.5 mg IVPB Q6H PRN PRN Reason: Nausea/Vomiting Last Admin: 07/12/18 19:35 Dose: 12.5 mg Rosuvastatin Calcium (Crestor) 10 mg PO DAILY [facility] Last Admin: 07/18/18 08:55 Dose: 10 mg Saccharomyces Boulardii (Florastor) 250 mg PO DAILY [facility] Last Admin: 07/18/18 08:55 Dose: 250 mg Sodium Chloride (Flush - Normal Saline) 10 ml IVF Q12HR [facility] Last Admin: 07/18/18 08:58 Dose: 10 ml Sodium Chloride (Flush - Normal Saline) 10 ml IVF PRN PRN PRN Reason: Saline Flush Last Admin: 07/11/18 18:08 Dose: 10 ml Sodium Chloride (Normal Saline Pf) 10 ml FS PRN PRN PRN Reason: RECONSTITUTION Last Admin: 07/16/18 09:13 Dose: 10 ml Sotalol HCl (Betapace) 120 mg PO BID [facility] Last Admin: 07/18/18 08:56 Dose: 120 mg Throat Lozenges (Cepastat Lozenges) 1 ric PO Q2H PRN PRN Reason: Sore Throat Last Admin: 07/18/18 04:53 Dose: 1 ric Thyroid ([place] Thyroid) 60 mg PO 0600 [facility] Last Admin: 07/18/18 06:22 Dose: 60 mg Tramadol HCl (Ultram) 50 mg PO Q6H PRN PRN Reason: Pain Last Admin: 07/18/18 12:57 Dose: 50 mg
[2018-07-18] MEDS: Vancomycin HCl 1.25 GM in Sodium Chloride 0.9% 250 ML 250 ML IVPB SCH (21:41)
[2018-07-18] MEDS: FAT EMULSION IV SCH (22:12)
[2018-07-18] MEDS: SODIUM CHLORIDE IV SCH (22:12)
[2018-07-18] MEDS: [UNRECOGNIZED DRUG - OTHER] IV SCH (22:12)
[2018-07-18] MEDS: SODIUM ACETATE IV SCH (22:12)
[2018-07-19] MEDS: Pregabalin 25 MG CAP PO SCH ×3 (05:29→22:30)
[2018-07-19] MEDS: Thyroid 60 MG TAB PO SCH (05:30)
[2018-07-19] MEDS: traMADol HCl 50 MG TAB PO PRN (05:30)
[2018-07-19] MEDS: Piperacillin/Tazobactam 3.375 GM in Sodium Chloride 0.9% 100 ML IVPB SCH ×3 (05:31→17:34)
[2018-07-19 06:15] LABS: #Eosinphils 0.1 thou/uL (0.0-0.7); #Lymphocytes 2.2 thou/uL (1.20-3.40); #Monocytes 0.8 thou/uL (0.11-0.59); #Neutrophils 9.2 thou/uL (1.40-6.50); %Basophils 0.2 % (0.0-1.0); %Monocytes 6.2 % (0.0-10.0); %Neutrophils 74.7 % (42.0-75.0); Hemoglobin 9.2 g/dL (12.0-16.0); Mean Corpuscular HGB CONC 31.5 g/dL (32.0-36.0); Mean Corpuscular Volume 85.6 fL (78.0-98.0); Mean Platelet Volume 7.4 fL (7.4-10.4); Platelet Count 347 thou/uL (130-400); RBC Distribution Width 17.5 % (11.5-14.5); Red Blood Cell (RBC) Count 3.39 mill/uL (4.20-5.40); White Blood Cell (WBC) Count 12.3 thou/uL (4.8-10.8)
[2018-07-19 06:31] LABS: Phosphorus 3.3 mg/dL (2.3-4.7)
[2018-07-19 06:33] LABS: Anion Gap 13 mmol/L (10-20); BUN (Urea Nitrogen) 21 mg/dL (9.8-20.1); Calc. Creatinine Clearance 78 mL/min (70-130); Calcium 8.4 mg/dL (7.8-10.44); Carbon Dioxide 25 mmol/L (23-31); Chloride 99 mmol/L (98-107); Estimated GFR-MDRD Greater than 90; Glucose 113 mg/dL (83-110); Magnesium 1.9 mg/dL (1.6-2.6); Potassium 3.8 mmol/L (3.5-5.1); Sodium 133 mmol/L (136-145)
--- NOTE | 2018-07-19 09:09 | PDOC.CTH ---
Cardiology Progress Note - Subjective The pt seen and examined. No overnight events. No cardiac complaints. - Objective Vital Signs Temp Pulse BP 07/19/18 07:26 97.9 F 07/19/18 03:53 99.6 F 07/18/18 23:46 98.5 F 07/18/18 21:39 75 125/42 L 07/18/18 21:37 125/42 L 07/18/18 21:34 75 125/42 L Admit Weight 140 lb Weight 138 lb 6 oz 07/18/18 07/19/18 07/20/18 06:59 06:59 06:59 Intake Total 3610 2820 Output Total 2657 2900 Balance 953 -80 - Physical Examination General/Neuro: alert & oriented x3 Neck: no JVD present Lungs: CTA (diminished at bases) Heart: RRR Abdomen: soft Extremities: other: (No edema) - Telemetry Telemetry Rhythm: A paced - Labs Result Diagrams: 07/19/18 05:44 07/19/18 05:44 Troponin/CKMB Troponin I 0.068 ng/mL (< 0.028) H 07/04/18 15:33 - Assessment/Plan 1. 2:1 Aflutter/Afib with RVR with s/p DCCV on 07/10/2018 - remains in SR since 07/15/2018; On Diltiazem 180mg PO daily; On Sotalol 120mg BID and Metoprolol 100mg BID. On Lovenox 30mg qd since she has Watchman's device. 2. HNP (herniated nucleus pulposus with myelopathy), s/p surgical intervention on 07/04/2018 3. HTN - Stable with Hydralazine to TID. On Bblocker, H[place]ARY, Clonidine 0.3mg TID ; 4. Chronic diastolic HF (grade III with Echo in 05/2017) - stable with Lasix 40mg po qd which will be changed to 20mg qd; on metoprolol and lisinopril 5. COPD - on 1.5 LNC 6. Hyperlipidemia - on Statin 7. Hypothyroidism - 8. Sjogren's syndrome - on Prednisone 9. s/p CT drainage of diverticular abscess on 07/12/2018 - tolerates Full liquid diet; managed by Dr Alfonso. ATIYA reviewed Pt. seen and eval. by me. I agree with the A/P by the INTAKE SPECIALIST. She is actually eating solid food this PM. The HR is stable and regular. Chest is clear. No edema. + BS.. Plan to decrease sotalol if she remains in NSR. Review of Systems - Review of Systems Constitutional: reports: weakness EENTM: reports: no symptoms reported Respiratory: reports: no symptoms reported Cardiac (ROS): reports: no symptoms reported ABD/GI: reports: no symptoms reported : reports: no symptoms reported
--- NOTE | 2018-07-19 09:11 | PRG ---
DATE OF SERVICE: 07/19/2018 SUBJECTIVE: Ms. Carrera did well overnight. She says her abdomen is not as uncomfortable as it was yesterday. OBJECTIVE: VITAL SIGNS: She is afebrile. Heart rate 76, blood pressure 149/61. LUNGS: Clear. HEART: Regular rhythm. ABDOMEN: Not tender, even to deep palpation today. LABORATORY DATA: White count 12.3, hemoglobin 9.2, platelets 347. Sodium 133, potassium 3.8, chloride 99, bicarb 25, BUN 21, creatinine 0.6. She is also soft mechanical diet now. She says she is passing gas. IMPRESSION: 1. Perforated diverticulitis. 2. Steroid dependence masking her abdominal symptoms until she had a fairly large abscesses. 3. Status post percutaneous drainage of two abscesses with drains indwelling. 4. Deconditioning. 5. History of asthmatic bronchitis. 6. History of atrial arrhythmias. PLAN: Continue with physical therapy, wound abscess drainage and antimicrobial therapy. Job ID: [id number]
[2018-07-19] MEDS: Rosuvastatin 10 MG TAB PO SCH (09:31)
[2018-07-19] MEDS: predniSONE 5 MG TAB PO SCH (09:31)
[2018-07-19] MEDS: Multivitamin W/ Minerals 1 TAB PO SCH (09:32)
[2018-07-19] MEDS: Lisinopril 20 MG TAB PO SCH ×2 (09:33→20:56)
[2018-07-19] MEDS: Sotalol HCl 80 MG TAB PO SCH ×2 (09:33→20:58)
[2018-07-19] MEDS: hydrALAZINE 25 MG TAB PO SCH ×3 (09:36→20:55)
[2018-07-19] MEDS: cloNIDine 0.3 MG TAB PO SCH ×3 (09:37→20:55)
[2018-07-19] MEDS: Saccharomyces boulardii 250 MG CAP PO SCH (09:37)
[2018-07-19] MEDS: Digoxin 0.125 MG TAB PO SCH (09:37)
[2018-07-19] MEDS: Metoprolol Tartrate 100 MG TAB PO SCH ×2 (09:38→20:57)
[2018-07-19] MEDS: Bisacodyl 10 MG SUPP PR SCH (09:39)
[2018-07-19] MEDS: Nystatin Powder 15 GM BOT TOP SCH ×2 (09:40→20:57)
[2018-07-19] MEDS: Polyethylene Glycol 3350 17 GM Packet PO SCH (09:40)
[2018-07-19] MEDS: Furosemide 40 MG TAB PO SCH ×2 (09:53→10:41)
[2018-07-19] MEDS ORDERED: Furosemide 20 MG TAB PO SCH (10:00)
--- NOTE | 2018-07-19 13:03 | EKG ---
Test Reason : TIMED Blood Pressure : / mmHG Vent. Rate : 081 BPM Atrial Rate : 081 BPM P-R Int : 186 ms QRS Dur : 156 ms QT Int : 464 ms P-R-T Axes : 074 -64 099 degrees QTc Int : 539 ms AV dual-paced rhythm Abnormal ECG Confirmed by MAGGIE HERNANDEZ ([id number]) on 07/19/2018 1:03:51 PM Referred By: Confirmed By:MAGGIE HERNANDEZ
--- NOTE | 2018-07-19 13:57 | PDOC.CTH ---
Cardiology Progress Note - Subjective EP PROGRESS NOTE: 07/19/18 Seen as follow up for for atrial flutter. Converted to SR spontaneously. Feeling better each day. No new cardiac concerns. Tolerating PO intake well. - Objective Vital Signs Temp Pulse Pulse Pulse BP BP BP 07/19/18 11:18 98.4 F 07/19/18 10:30 77 75 151/65 H 144/59 H 07/19/18 09:37 75 149/59 H 07/19/18 09:36 75 149/59 H 07/19/18 09:33 77 149/59 H 07/19/18 08:00 07/19/18 07:26 97.9 F 07/19/18 03:53 99.6 F Pulse Ox Pulse Ox Pulse Ox 07/19/18 11:18 07/19/18 10:30 97 97 07/19/18 09:37 07/19/18 09:36 07/19/18 09:33 07/19/18 08:00 96 07/19/18 07:26 07/19/18 03:53 Admit Weight 140 lb Weight 138 lb 6 oz 07/18/18 07/19/18 07/20/18 06:59 06:59 06:59 Intake Total 3610 2820 Output Total 2657 2900 Balance 953 -80 - Physical Examination General/Neuro: alert & oriented x3, NAD Neck: carotid US brisk, no JVD present Lungs: CTA, unlabored respirations Heart: PMI normal, RRR Abdomen: no HSM, NT/ND, soft - Telemetry Telemetry Rhythm: SR - Labs Result Diagrams: 07/19/18 05:44 07/19/18 05:44 Troponin/CKMB Troponin I 0.068 ng/mL (< 0.028) H 07/04/18 15:33 - Assessment/Plan 1. Atypical atrial flutter - s/p CV 07/10 - likely provoked by recent spinal surgery/diskectomy -spontaneous conversion back to SR without sotalol once her pain and abscess were controlled. - Sotalol started 07/16/18 -QTc stable - Continue rate control with dilt gtt PRN and IV meds as needed - watchman in place, no need for OAC 2. Dual chamber PPM - normal operation -AP,VS rhythm 3. COPD 4. Diastolic heart failure, chronic 5. Herniated disk -s/p diskectomy - pain 6. SBO vs illeus: NG tube removed. 7. Abd abscess - s/p drain by IR on 07/12 No changes to therapy by EP. Continue Sotalol. May decrease to 80mg BID if QTc becomes prolonged or hypotension is seen.
--- NOTE | 2018-07-19 14:53 | PRG ---
DATE OF SERVICE: 07/19/2018 SUBJECTIVE: Ms. Carrera remains hospitalized in the intermediate care unit. She is hospital day #18. She is postprocedure day #8 from drainage of her diverticular abscess. Cultures revealed enterococcus and E. coli, and she is being treated appropriately with Zosyn and vancomycin. She has no complaints. She is tolerating her full liquid diet uneventfully. She continues to have bowel movements. She denies significant pain. OBJECTIVE: VITAL SIGNS: On examination, temperature is 98.4, pulse 75, and blood pressure 151/65. LUNGS: Clear to auscultation. CARDIAC: Regular rate and rhythm. ABDOMEN: Soft, nontender, and nondistended with no focal tenderness. Drain is still present in the left lower quadrant (drain output for yesterday was 25 mL). LABORATORY DATA: CBC reveals white blood cell count of 12.3. Hemoglobin is 9.2. She has minimal electrolyte abnormalities. ASSESSMENT: She is doing well following her drainage of diverticular abscess. She is on appropriate antibiotics for the infectious organisms. I have advanced her up to a regular diet today and accordingly have discontinued her TPN. She is receiving IV antibiotics as there is no good oral equivalent to cover one of her E. coli organisms. She will therefore require a total of 2 weeks of IV antibiotics. This is being given through a PICC line. I would recommend removal of Beth catheter tomorrow. I will remove her percutaneous drain tomorrow. I believe she is stable for transfer to rehab tomorrow (on Monday). Job ID: [id number]
--- NOTE | 2018-07-19 15:52 | EKG ---
Test Reason : 2HR POST MED Blood Pressure : / mmHG Vent. Rate : 075 BPM Atrial Rate : 075 BPM P-R Int : 170 ms QRS Dur : 152 ms QT Int : 448 ms P-R-T Axes : 092 -71 092 degrees QTc Int : 500 ms AV sequential or dual chamber electronic pacemaker When compared with ECG of 18-JUL-2018 22:40, (Unconfirmed) Vent. rate has decreased BY 6 BPM Confirmed by MAGGIE HERNANDEZ ([id number]) on 07/19/2018 3:51:48 PM Referred By: MIKAELA Confirmed By:MAGGIE HERNANDEZ
--- NOTE | 2018-07-19 15:55 | PRG ---
DATE OF SERVICE: 07/19/2018 SUBJECTIVE: Ms. Carrera is now postoperative, having undergone multilevel lumbar and thoracic laminectomies on 07/03/2018. The patient overall appears to be improving significantly. She does have some back pain, but otherwise has significant improvement in left leg pain. She does have subjective weakness into the left leg with walking, although she states that she feels more steady on her feet today. Her incisions are covered with clean dry gauze and tape, and when these are uncovered, there is some surrounding erythema in the inferior aspect of both incisions. There is some dried bloody drainage on the lumbar wound incision. There is no active drainage. There is no swelling of the incision. However, the incision is somewhat puckered consistent with closure with interrupted Ethilon sutures, but nothing concerning for significant swelling. At this time, the patient is cleared for discharge from neurosurgical perspective. We will continue to monitor the patient. Her suture should be removed 4 weeks postop and these can be removed inpatient rehab or we will attempt to arrange a followup appointment in our clinic. Job ID: [id number]
[2018-07-19] MEDS: Insulin Regular 300 UNITS/3 ML VIAL SC PRN (17:35)
[2018-07-19 21:35] LABS: Vancomycin, Trough 15.8 ug/mL
[2018-07-19] MEDS: Vancomycin HCl 1.25 GM in Sodium Chloride 0.9% 250 ML 250 ML IVPB SCH (22:34)
--- NOTE | 2018-07-19 23:12 | PDOC.PN ---
- Subjective Encounter Start Date: 07/19/18 Encounter Start Time: 11:45 Patient seen and examined for Sepsis. Tolerating PO. No new complaints. No overnight events - Objective Resuscitation Status - Order Detail: 07/01/18 09:58 Resuscitation Status Routine Resuscitation Status: PRTL: Chem-Intubation Discussed with: Patient Additional comments: Cardioversion also ok. No compressions. MAR Reviewed: Yes Vital Signs & Weight: Vital Signs (12 hours) Temp Pulse BP BP Pulse Ox 07/19/18 20:58 75 142/50 H 07/19/18 20:56 142/50 H 07/19/18 20:55 75 142/50 H 07/19/18 20:00 96 07/19/18 19:43 98.4 F 07/19/18 16:00 133/47 L 07/19/18 15:04 98.6 F 07/19/18 15:02 75 151/65 H 07/19/18 11:18 98.4 F Weight Admit Weight 140 lb Weight 138 lb 6 oz Most Recent Monitor Data Heart Rate from ECG 75 NIBP 135/47 NIBP BP-Mean 76 Respiration from ECG 14 SpO2 96 I&O: 07/18/18 07/19/18 07/20/18 06:59 06:59 06:59 Intake Total 3610 2820 1870 Output Total 2657 2900 1765 Balance 953 -80 105 Result Diagrams: 07/20/18 05:25 07/20/18 05:25 Additional Labs: Accuchecks 07/19/18 07/19/18 07/19/18 16:38 10:54 00:01 POC Glucose 202 H 154 H 135 H EKG Reviewed by me: Yes (Tele paced/SR) Phys Exam - Physical Examination Constitutional: NAD Respiratory: no wheezing, no rhonchi dec AE at bases Cardiovascular: RRR, no rub Gastrointestinal: soft, positive bowel sounds mild gen tend, no rebound/guarding Musculoskeletal: no edema Dx/Plan - Plan DVT proph w/SCDs 1. SBO/Severe Sepsis due to complicated diverticulitis with abscess s/o drainage 07/12 2. Atrial flutter/atrial fibrillation with rapid ventricular response. 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 on Sotalol/Digoxin 3. Lumbar radiculopathy, status post laminectomy this admission. Suture removal after 3 weeks from surgery (Per NSG) 4. Chronic diastolic heart failure. 5. Chronic obstructive pulmonary disease. 6. Sjogren syndrome, on chronic steroids. 7. Hypothyroidism. 8. Moderate PEM - on TPN 9. Irritable bowel syndrome. 10. Hypertension/Hyperlipidemia. 11. Hypokalemia/hypomagnesemia/hypophosphatemia 12. Elevated troponin secondary to demand ischemia. 13. Hyponatremia. 14. Acute on chronic anemia. PLAN: Cont current Atbx - Zosyn/Vancomycin for Ecoli and Enterococcus for total of 2 weeks Cont other meds as below AM labs DC TPN in AM if tolerating PO Review of Systems - Review of Systems Respiratory: negative: Cough, Dry, Shortness of Breath, Hemoptysis, SOB with Excertion, Pleuritic Pain, Sputum, Wheezing Cardiovascular: negative: chest pain, palpitations, orthopnea, paroxysmal nocturnal dyspnea, edema, light headedness, other - Medications/Allergies Allergies/Adverse Reactions: Allergies Allergy/AdvReac Type Severity Reaction Status Date / Time adhesive tape Allergy Verified 07/07/18 01:18 amlodipine Allergy "swelled Verified 10/20/17 14:12 in feet and legs" Medications: Current Medications Acetaminophen (Tylenol Elixir) 1,000 mg PO Q6H PRN PRN Reason: Mild Pain (1-3) Last Admin: 07/12/18 22:50 Dose: 1,000 mg Acetaminophen (Tylenol) 1,000 mg FL Q6H PRN PRN Reason: Mild Pain (1-3) Albuterol Sulfate (Ventolin) 2.5 mg NEB [id number] PRN PRN Reason: Wheezing Bisacodyl (Dulcolax) 10 mg FL DAILY [facility] Last Admin: 07/19/18 09:39 Dose: Not Given Clonidine (Catapres) 0.1 mg PO Q4H PRN PRN Reason: Systolic BP > 180 Clonidine (Catapres) 0.3 mg PO TID [facility] Last Admin: 07/19/18 20:55 Dose: 0.3 mg Cyclobenzaprine HCl (Flexeril) 5 mg PO Q8H PRN PRN Reason: Muscle Spasm/PAIN Last Admin: 07/17/18 21:27 Dose: 5 mg Dextrose/Water (Dextrose 50%) 25 gm IVP PRN PRN PRN Reason: HYPOGLYCEMIA PROTOCOL Digoxin (Lanoxin) 0.125 mg PO DAILY [facility] Last Admin: 07/19/18 09:37 Dose: 0.125 mg Diltiazem HCl (Cardizem Cd) 180 mg PO DAILY [facility] Last Admin: 07/19/18 09:38 Dose: 180 mg Fentanyl (Sublimaze) 25 mcg SLOW IVP Q6H PRN PRN Reason: Severe Pain (7-10) Last Admin: 07/16/18 00:06 Dose: 25 mcg Furosemide (Lasix) 20 mg PO DAILY [facility] Glucagon (Glucagon) 1 mg IM PRN PRN PRN Reason: HYPOGLYCEMIA PROTOCOL Hydralazine HCl (Apresoline) 10 mg SLOW IVP Q4H PRN PRN Reason: Blood Pressure Hydralazine HCl (Apresoline) 100 mg PO TID [facility] Last Admin: 07/19/18 20:55 Dose: 100 mg Hyoscyamine Sulfate (Levsin Sl) 0.125 mg PO Q4H PRN PRN Reason: Abdominal Distention Last Admin: 07/17/18 21:22 Dose: 0.125 mg Piperacillin Sod/Tazobactam (Sod 3.375 gm/ Sodium Chloride) 100 mls @ 200 mls/ hr IVPB Q6HR [facility] Last Admin: 07/19/18 17:34 Dose: 100 mls Dextrose/Water (D5w) 1,000 mls @ 0 mls/hr IV INF PRN PRN Reason: HYPOGLYCEMIA PROTOCOL Potassium Chloride/Dextrose/Sod Cl (D5 1/2 Ns W/20 Meq Kcl) 1,000 mls @ 0 mls/ hr IV .Q0M [facility] Last Admin: 07/15/18 05:58 Dose: 1,000 mls Diltiazem HCl 125 mg/Miscellaneous Medication 1 each/ Sodium Chloride 125 mls @ 5 mls/hr IVPB INF [facility]; Protocol Vancomycin HCl 1.25 gm/ Sodium (Chloride) 250 mls @ 166.667 mls/hr IVPB 2200 [facility] Last Admin: 07/19/18 22:34 Dose: 250 mls Insulin Human Regular (Humulin R) 0 units SC .MODERATE SLIDING SC PRN; Protocol PRN Reason: MODERATE SLIDING SCALE Last Admin: 07/19/18 17:35 Dose: 2 unit Iron/Minerals/Multivitamins (Theragran M) 1 tab PO DAILY [facility] Last Admin: 07/19/18 09:32 Dose: 1 tab Isosorbide Mononitrate (Imdur Er) 30 mg PO BID [facility] Last Admin: 07/19/18 20:56 Dose: 30 mg Labetalol HCl (Normodyne) 10 mg SLOW IVP Q4H PRN PRN Reason: Systolic BP > 180 Last Admin: 07/12/18 19:40 Dose: 10 mg Lisinopril (Zestril) 20 mg PO BID [facility] Last Admin: 07/19/18 20:56 Dose: 20 mg Magnesium Hydroxide (Milk Of Magnesium) 30 ml PO Q6H PRN PRN Reason: Constipation Last Admin: 07/08/18 17:03 Dose: 30 ml Metoprolol Tartrate (Lopressor) 100 mg PO BID [facility] Last Admin: 07/19/18 20:57 Dose: 100 mg Mineral Oil/White Petrolatum (Eucerin Cream) 0 gm TOP BIDPRN PRN PRN Reason: Dry Skin Miscellaneous Medication (Pharmacy To Dose) 1 each IVPB PRN PRN PRN Reason: Pharmacy to dose Nitroglycerin (Nitrostat) 0.4 mg SL Q5MIN PRN PRN Reason: Chest Pain Nystatin (Mycostatin Powder) 0 gm TOP BID [facility] Last Admin: 07/19/18 20:57 Dose: 1 applic Ondansetron HCl (Zofran) 4 mg SLOW IVP Q6H PRN PRN Reason: Nausea/Vomiting Last Admin: 07/14/18 10:08 Dose: 4 mg Pantoprazole Sodium (Protonix) 40 mg PO DAILY [facility] Last Admin: 07/19/18 09:32 Dose: 40 mg Polyethylene Glycol (Miralax) 17 gm PO DAILY [facility] Last Admin: 07/19/18 09:40 Dose: Not Given Prednisone (Prednisone) 15 mg PO QAM-WM [facility] Last Admin: 07/19/18 09:31 Dose: 15 mg Pregabalin (Lyrica) 25 mg PO Q8HR [facility] Last Admin: 07/19/18 22:30 Dose: 25 mg Promethazine HCl (Phenergan) 12.5 mg IVPB Q6H PRN PRN Reason: Nausea/Vomiting Last Admin: 07/12/18 19:35 Dose: 12.5 mg Rosuvastatin Calcium (Crestor) 10 mg PO DAILY [facility] Last Admin: 07/19/18 09:31 Dose: 10 mg Saccharomyces Boulardii (Florastor) 250 mg PO DAILY [facility] Last Admin: 07/19/18 09:37 Dose: 250 mg Sodium Chloride (Flush - Normal Saline) 10 ml IVF Q12HR [facility] Last Admin: 07/19/18 20:57 Dose: 10 ml Sodium Chloride (Flush - Normal Saline) 10 ml IVF PRN PRN PRN Reason: Saline Flush Last Admin: 07/19/18 22:34 Dose: 10 ml Sodium Chloride (Normal Saline Pf) 10 ml FS PRN PRN PRN Reason: RECONSTITUTION Last Admin: 07/16/18 09:13 Dose: 10 ml Sotalol HCl (Betapace) 120 mg PO BID [facility] Last Admin: 07/19/18 20:58 Dose: 120 mg Throat Lozenges (Cepastat Lozenges) 1 ric PO Q2H PRN PRN Reason: Sore Throat Last Admin: 07/18/18 22:12 Dose: 1 ric Thyroid ([place] Thyroid) 60 mg PO 0600 [facility] Last Admin: 07/19/18 05:30 Dose: 60 mg Tramadol HCl (Ultram) 50 mg PO Q6H PRN PRN Reason: Pain Last Admin: 07/19/18 05:30 Dose: 50 mg
[2018-07-19] MEDS: Cepastat Lozenges 1 LOZ PO PRN (23:19)
[2018-07-20] MEDS: Piperacillin/Tazobactam 3.375 GM in Sodium Chloride 0.9% 100 ML IVPB SCH ×5 (00:05→23:53)
[2018-07-20] MEDS: Thyroid 60 MG TAB PO SCH (05:14)
[2018-07-20 05:32] LABS: #Eosinphils 0.1 thou/uL (0.0-0.7); #Lymphocytes 1.8 thou/uL (1.20-3.40); #Monocytes 0.8 thou/uL (0.11-0.59); #Neutrophils 10.9 thou/uL (1.40-6.50); %Basophils 0.1 % (0.0-1.0); %Eosinophils 0.6 % (0.0-10.0); %Monocytes 5.6 % (0.0-10.0); %Neutrophils 80.7 % (42.0-75.0); Mean Corpuscular HGB CONC 30.6 g/dL (32.0-36.0); Mean Corpuscular Hemoglobin 26.2 pg (27.0-31.0); Mean Corpuscular Volume 85.4 fL (78.0-98.0); Mean Platelet Volume 6.9 fL (7.4-10.4); Platelet Count 316 thou/uL (130-400); RBC Distribution Width 17.7 % (11.5-14.5); Red Blood Cell (RBC) Count 3.45 mill/uL (4.20-5.40); White Blood Cell (WBC) Count 13.5 thou/uL (4.8-10.8)
[2018-07-20 05:51] LABS: Anion Gap 13 mmol/L (10-20); BUN (Urea Nitrogen) 17 mg/dL (9.8-20.1); Calc. Creatinine Clearance 78 mL/min (70-130); Calcium 8.3 mg/dL (7.8-10.44); Carbon Dioxide 25 mmol/L (23-31); Chloride 100 mmol/L (98-107); Estimated GFR-MDRD Greater than 90; Glucose 82 mg/dL (83-110); Potassium 3.5 mmol/L (3.5-5.1); Sodium 134 mmol/L (136-145)
[2018-07-20] MEDS: Pregabalin 25 MG CAP PO SCH ×3 (05:59→22:07)
[2018-07-20] MEDS ORDERED: Potassium Chloride 40 MEQ in Sodium Chloride 0.9% 250 ML 250 ML IVPB SCH (08:00)
--- NOTE | 2018-07-20 08:29 | PDOC.CTH ---
Cardiology Progress Note - Subjective The pt seen and examined. No overnight events. No cardiac complaints. - Objective Vital Signs Temp Pulse BP 07/20/18 07:26 98.9 F 07/20/18 04:00 98.9 F 07/20/18 00:00 98.4 F 07/19/18 20:58 75 142/50 H 07/19/18 20:56 142/50 H 07/19/18 20:55 75 142/50 H Admit Weight 140 lb Weight 138 lb 6 oz 07/19/18 07/20/18 07/21/18 06:59 06:59 06:59 Intake Total 2820 2530 Output Total 2900 3570 Balance -80 -1040 - Physical Examination General/Neuro: alert & oriented x3 Neck: no JVD present Lungs: CTA (diminished at bases) Heart: RRR Abdomen: soft Extremities: other: (No edema) - Telemetry Telemetry Rhythm: SR - Labs Result Diagrams: 07/20/18 05:25 07/20/18 05:25 Troponin/CKMB Troponin I 0.068 ng/mL (< 0.028) H 07/04/18 15:33 - Assessment/Plan 1. 2:1 Aflutter/Afib with RVR with s/p DCCV on 07/10/2018 - remains in SR since 07/15/2018; On Diltiazem 180mg PO daily; On Sotalol 120mg BID and Metoprolol 100mg BID. On Lovenox 30mg qd since she has Watchman's device. 2. HNP (herniated nucleus pulposus with myelopathy), s/p surgical intervention on 07/04/2018 3. HTN - Stable with Hydralazine to TID. On Bblocker, H[place], Clonidine 0.3mg TID ; 4. Chronic diastolic HF (grade III with Echo in 05/2017) - stable with Lasix 40mg po qd which will be changed to 20mg qd; on metoprolol and lisinopril 5. COPD - on 1.5 LNC 6. Hyperlipidemia - on Statin 7. Hypothyroidism - 8. Sjogren's syndrome - on Prednisone 9. s/p CT drainage of diverticular abscess on 07/12/2018 - tolerates Full liquid diet; managed by Dr Alfonso. MAR reviewed * Plan to decrease sotalol if she remains in NSR, prolong QT, or hypotension. * From Cardiac standpoint, the pt is stable to tx to rehab. Pt. seen and eval. by me. i agree with the A/P by the TECHN[employer]IST [employer]. Chest clear. RRR. Review of Systems - Review of Systems Constitutional: reports: no symptoms reported EENTM: reports: no symptoms reported Respiratory: reports: no symptoms reported Cardiac (ROS): reports: no symptoms reported ABD/GI: reports: no symptoms reported
--- NOTE | 2018-07-20 10:10 | PRG ---
DATE OF SERVICE: 07/20/2018 SUBJECTIVE: Ms. Carrera ate about 30% of her breakfast. She is not having an abdominal pain. OBJECTIVE: VITAL SIGNS: She is afebrile. Blood pressure 129/43, heart rates in the 70s, and respiratory rates in the teens to 20s. LUNGS: Clear. HEART: Regular rhythm. ABDOMEN: Nontender. LABORATORY DATA: White count 13.5, hemoglobin 9, and platelets 316. Sodium 134, potassium 3.5, chloride 100, bicarb 25, BUN 17, and creatinine 0.6. IMPRESSION: 1. Perforated diverticulitis, status post percutaneous drainage of an intraabdominal abscess in [address] showed resolution of those abscesses on July 14. 2. Status post multiple level spine surgery this admission. Hopefully, she has not seeded her spine. She had polymicrobial abscesses as expected. There are no blood cultures from this admission. PLAN: Her asthmatic bronchitis has been stable throughout this whole hospitalization. She appears to be stable for transfer to rehab facility. Job ID: [id number]
[2018-07-20] MEDS: hydrALAZINE 25 MG TAB PO SCH ×4 (10:13→20:55)
[2018-07-20] MEDS: cloNIDine 0.3 MG TAB PO SCH ×4 (10:19→22:08)
[2018-07-20] MEDS: Digoxin 0.125 MG TAB PO SCH (10:19)
[2018-07-20] MEDS: Metoprolol Tartrate 100 MG TAB PO SCH ×2 (10:20→20:56)
[2018-07-20] MEDS: Rosuvastatin 10 MG TAB PO SCH (10:20)
[2018-07-20] MEDS: Lisinopril 20 MG TAB PO SCH ×2 (10:21→20:52)
[2018-07-20] MEDS: Multivitamin W/ Minerals 1 TAB PO SCH (10:21)
[2018-07-20] MEDS: Sotalol HCl 80 MG TAB PO SCH ×2 (10:22→20:50)
[2018-07-20] MEDS: Saccharomyces boulardii 250 MG CAP PO SCH (10:23)
[2018-07-20] MEDS: Bisacodyl 10 MG SUPP PR SCH (10:23)
[2018-07-20] MEDS: Furosemide 20 MG TAB PO SCH ×2 (10:24→11:44)
[2018-07-20] MEDS: Polyethylene Glycol 3350 17 GM Packet PO SCH (10:25)
[2018-07-20] MEDS: predniSONE 5 MG TAB PO SCH (10:29)
[2018-07-20] MEDS ORDERED: Magnesium Sulfate 2 GM in Sodium Chloride 0.9% 100 ML IVPB SCH (10:45)
[2018-07-20] MEDS: traMADol HCl 50 MG TAB PO PRN ×2 (10:51→21:03)
[2018-07-20] MEDS: Nystatin Powder 15 GM BOT TOP SCH ×2 (10:56→20:58)
[2018-07-20] MEDS ORDERED: Magnesium 2 GM/50 ML 2 GM in Premix Bag 1 BAG IVPB SCH (11:00)
[2018-07-20] MEDS ORDERED: Sterile Water 10 ML VIAL FS SCH (12:07)
[2018-07-20] MEDS ORDERED: Activase 2 MG VIAL CATH SCH (12:15)
[2018-07-20 12:27] VITALS: BMI 27.9
--- NOTE | 2018-07-20 12:34 | PDOC.CTH ---
Cardiology Progress Note - Subjective EP PROGRESS NOTE: 07/20/18 Seen as follow up for for atrial flutter. No significant changes since yesterday but feeling stronger each day. Converted to SR spontaneously. No new cardiac concerns. Tolerating PO intake well. - Objective Vital Signs Temp Pulse Pulse Pulse BP BP BP 07/20/18 10:32 75 127/45 L 07/20/18 10:29 98.7 F 07/20/18 10:22 75 127/45 L 07/20/18 10:21 127/45 L 07/20/18 10:19 75 112/68 07/20/18 09:21 77 75 151/60 H 139/50 L 07/20/18 07:26 98.9 F 07/20/18 04:00 98.9 F Pulse Ox Pulse Ox 07/20/18 10:32 07/20/18 10:29 07/20/18 10:22 07/20/18 10:21 07/20/18 10:19 07/20/18 09:21 96 96 07/20/18 07:26 07/20/18 04:00 Admit Weight 140 lb Weight 138 lb 6 oz 07/19/18 07/20/18 07/21/18 06:59 06:59 06:59 Intake Total 2820 2530 Output Total 2900 3570 Balance -80 -1040 - Physical Examination General/Neuro: alert & oriented x3, NAD Neck: carotid US brisk, no JVD present Lungs: CTA, unlabored respirations Heart: PMI normal, RRR Abdomen: NT/ND, soft - Telemetry Telemetry Rhythm: SR, demand pacing - Labs Result Diagrams: 07/20/18 05:25 07/20/18 05:25 Troponin/CKMB Troponin I 0.068 ng/mL (< 0.028) H 07/04/18 15:33 - Assessment/Plan 1. Atypical atrial flutter - s/p CV 07/10 - likely provoked by recent spinal surgery/diskectomy -spontaneous conversion back to SR without sotalol once her pain and abscess were controlled. - Sotalol started 07/16/18 -QTc stable - Continue rate control with dilt gtt PRN and IV meds as needed - watchman in place, no need for OAC 2. Dual chamber PPM - normal operation - demand pacing seen as appropriate 3. COPD 4. Diastolic heart failure, chronic 5. Herniated disk -s/p diskectomy - pain 6. SBO vs illeus: NG tube removed. 7. Abd abscess - s/p drain by IR on 07/12 No changes to therapy by EP. EKG from this AM was taken while RV pacing was occuring, thus overestimating QT/QTc. New 12 lead ordered for, try to get when not RV paced. Continue Sotalol. No need for OAC. May decrease to 80mg BID if QTc becomes prolonged or hypotension is seen.
--- NOTE | 2018-07-20 15:49 | PRG ---
DATE OF SERVICE: 07/20/2018 SUBJECTIVE: Ms. Carrera is hospital day #19 and post abscess drainage day #9. She remains in the intermediate care unit. She has no complaints. Her TPN was stopped yesterday. She is advanced to a regular diet. She tells me she has been tolerating her diet uneventfully. She has had a small bowel movement earlier today and passing gas. She denies nausea or vomiting. Her Beth catheter was removed this morning. Apparently, she still has not voided as of now. Her drain output has remained low and was 20 mL for all day yesterday including flushes. She has been on antibiotics and had the drain placed 9 days ago, I decided to remove it today. This was removed uneventfully. Unfortunately, the fluid that came out behind the drain after I removed it still smelled feculent in nature. There was not very much, only 1 mL or less. Hopefully, continuation of antibiotics will limit the chance that any recurrent abscess will form. OBJECTIVE: VITAL SIGNS: On examination, she is afebrile. Vital signs within normal limits. LUNGS: Clear to auscultation. ABDOMEN: Soft and nontender with normal bowel sounds. LABORATORY DATA: Reveal elevated white blood cell count of 13.5 with a hemoglobin of 9.0. She remains on steroids and I am uncertain significance for elevated white blood cell count. Electrolytes are unremarkable. ASSESSMENT AND PLAN: The patient who had a diverticular abscess that was drained percutaneously 9 days ago. This was removed today. She will continue on Zosyn and vancomycin, which covers her culture specimen. She is also status post back surgery during this hospitalization and she continues with physical therapy for this. I thought that she was going to rehab facility today, but if she does not, then I will inspect her again on Monday. I do not anticipate any acute changes over the weekend. If any surgical assistance is necessary, you can contact Dr. Fish, otherwise I will see her on Monday. Job ID: [id number]
--- NOTE | 2018-07-20 16:01 | PDOC.PN ---
- Subjective Encounter Start Date: 07/20/18 Encounter Start Time: 13:00 Patient seen and examined for Sepsis/Diverticular abscess. Tolerating PO well. No new complaints. No overnight events - Objective Resuscitation Status - Order Detail: 07/01/18 09:58 Resuscitation Status Routine Resuscitation Status: PRTL: Chem-Intubation Discussed with: Patient Additional comments: Cardioversion also ok. No compressions. MAR Reviewed: Yes Vital Signs & Weight: Vital Signs (12 hours) Temp Pulse Pulse Pulse BP BP BP 07/20/18 15:54 125/54 L 07/20/18 15:49 75 125/54 L 07/20/18 15:46 99.2 F 07/20/18 12:00 07/20/18 10:32 75 127/45 L 07/20/18 10:29 98.7 F 07/20/18 10:22 75 127/45 L 07/20/18 10:21 127/45 L 07/20/18 10:19 75 112/68 07/20/18 09:21 77 75 151/60 H 139/50 L 07/20/18 07:26 98.9 F 07/20/18 04:00 98.9 F Pulse Ox Pulse Ox Pulse Ox 07/20/18 15:54 07/20/18 15:49 07/20/18 15:46 07/20/18 12:00 96 07/20/18 10:32 07/20/18 10:29 07/20/18 10:22 07/20/18 10:21 07/20/18 10:19 07/20/18 09:21 96 96 07/20/18 07:26 07/20/18 04:00 Weight Admit Weight 140 lb Weight 138 lb 6 oz Most Recent Monitor Data Heart Rate from ECG 76 NIBP 139/53 NIBP BP-Mean 81 Respiration from ECG 26 SpO2 96 I&O: 07/19/18 07/20/18 07/21/18 06:59 06:59 06:59 Intake Total 2820 2530 Output Total 2900 3570 Balance -80 -1040 Result Diagrams: 07/20/18 05:25 07/20/18 05:25 Additional Labs: Accuchecks 07/20/18 07/20/18 07/20/18 10:12 05:46 00:02 POC Glucose 147 H 87 119 H 07/19/18 16:38 POC Glucose 202 H EKG Reviewed by me: Yes (Tele SR) Phys Exam - Physical Examination Constitutional: NAD Respiratory: no wheezing, no rhonchi Cardiovascular: RRR, no rub Gastrointestinal: soft, non-tender, positive bowel sounds Musculoskeletal: no edema Neurological: moves all 4 limbs Dx/Plan - Plan DVT proph w/SCDs 1. SBO/Severe Sepsis due to complicated diverticulitis with abscess s/o drainage 07/12 2. Atrial flutter/atrial fibrillation with rapid ventricular response. 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 on Sotalol/Digoxin 3. Lumbar radiculopathy, status post laminectomy this admission. Suture removal after 3 weeks from surgery (Per NSG) 4. Chronic diastolic heart failure. 5. Chronic obstructive pulmonary disease. 6. Sjogren syndrome, on chronic steroids. 7. Hypothyroidism. 8. Moderate PEM - on TPN 9. Irritable bowel syndrome. 10. Hypertension/Hyperlipidemia. 11. Hypokalemia/hypomagnesemia/hypophosphatemia 12. Elevated troponin secondary to demand ischemia. 13. Hyponatremia. 14. Acute on chronic anemia. PLAN: Cont current Atbx - Zosyn/Vancomycin for Ecoli and Enterococcus for total of 2 weeks TPN dced Tolerating regular diet Await Rehab placement Cont other meds as below AM labs Replace Magnesium Reduce Sotalol if QTc prolongs Review of Systems - Review of Systems Respiratory: negative: Cough, Dry, Shortness of Breath, Hemoptysis, SOB with Excertion, Pleuritic Pain, Sputum, Wheezing Cardiovascular: negative: chest pain, palpitations, orthopnea, paroxysmal nocturnal dyspnea, edema, light headedness, other - Medications/Allergies Allergies/Adverse Reactions: Allergies Allergy/AdvReac Type Severity Reaction Status Date / Time adhesive tape Allergy Verified 07/07/18 01:18 amlodipine Allergy "swelled Verified 10/20/17 14:12 in feet and legs" Medications: Current Medications Acetaminophen (Tylenol Elixir) 1,000 mg PO Q6H PRN PRN Reason: Mild Pain (1-3) Last Admin: 07/12/18 22:50 Dose: 1,000 mg Acetaminophen (Tylenol) 1,000 mg HI Q6H PRN PRN Reason: Mild Pain (1-3) Albuterol Sulfate (Ventolin) 2.5 mg NEB [id number] PRN PRN Reason: Wheezing Alteplase, Recombinant (Cathflo) 2 mg CATH [facility] Stop: 07/20/18 22:00 Last Admin: 07/20/18 12:24 Dose: 2 mg Bisacodyl (Dulcolax) 10 mg HI DAILY [facility] Last Admin: 07/20/18 10:23 Dose: 10 mg Clonidine (Catapres) 0.1 mg PO Q4H PRN PRN Reason: Systolic BP > 180 Clonidine (Catapres) 0.3 mg PO TID [facility] Last Admin: 07/20/18 15:54 Dose: Not Given Cyclobenzaprine HCl (Flexeril) 5 mg PO Q8H PRN PRN Reason: Muscle Spasm/PAIN Last Admin: 07/17/18 21:27 Dose: 5 mg Dextrose/Water (Dextrose 50%) 25 gm IVP PRN PRN PRN Reason: HYPOGLYCEMIA PROTOCOL Digoxin (Lanoxin) 0.125 mg PO DAILY [facility] Last Admin: 07/20/18 10:19 Dose: 0.125 mg Diltiazem HCl (Cardizem Cd) 180 mg PO DAILY [facility] Last Admin: 07/20/18 10:18 Dose: 180 mg Fentanyl (Sublimaze) 25 mcg SLOW IVP Q6H PRN PRN Reason: Severe Pain (7-10) Last Admin: 07/16/18 00:06 Dose: 25 mcg Furosemide (Lasix) 20 mg PO DAILY [facility] Last Admin: 07/20/18 11:44 Dose: 20 mg Glucagon (Glucagon) 1 mg IM PRN PRN PRN Reason: HYPOGLYCEMIA PROTOCOL Hydralazine HCl (Apresoline) 10 mg SLOW IVP Q4H PRN PRN Reason: Blood Pressure Hydralazine HCl (Apresoline) 100 mg PO TID [facility] Last Admin: 07/20/18 15:49 Dose: 100 mg Hyoscyamine Sulfate (Levsin Sl) 0.125 mg PO Q4H PRN PRN Reason: Abdominal Distention Last Admin: 07/17/18 21:22 Dose: 0.125 mg Piperacillin Sod/Tazobactam (Sod 3.375 gm/ Sodium Chloride) 100 mls @ 200 mls/ hr IVPB Q6HR [facility] Last Admin: 07/20/18 12:33 Dose: 100 mls Dextrose/Water (D5w) 1,000 mls @ 0 mls/hr IV INF PRN PRN Reason: HYPOGLYCEMIA PROTOCOL Potassium Chloride/Dextrose/Sod Cl (D5 1/2 Ns W/20 Meq Kcl) 1,000 mls @ 0 mls/ hr IV .Q0M [facility] Last Admin: 07/15/18 05:58 Dose: 1,000 mls Diltiazem HCl 125 mg/Miscellaneous Medication 1 each/ Sodium Chloride 125 mls @ 5 mls/hr IVPB INF [facility]; Protocol Vancomycin HCl 1.25 gm/ Sodium (Chloride) 250 mls @ 166.667 mls/hr IVPB 2200 [facility] Last Admin: 07/19/18 22:34 Dose: 250 mls Insulin Human Regular (Humulin R) 0 units SC .MODERATE SLIDING SC PRN; Protocol PRN Reason: MODERATE SLIDING SCALE Last Admin: 07/19/18 17:35 Dose: 2 unit Iron/Minerals/Multivitamins (Theragran M) 1 tab PO DAILY [facility] Last Admin: 07/20/18 10:21 Dose: 1 tab Isosorbide Mononitrate (Imdur Er) 30 mg PO BID [facility] Last Admin: 07/20/18 10:20 Dose: 30 mg Labetalol HCl (Normodyne) 10 mg SLOW IVP Q4H PRN PRN Reason: Systolic BP > 180 Last Admin: 07/12/18 19:40 Dose: 10 mg Lisinopril (Zestril) 20 mg PO BID [facility] Last Admin: 07/20/18 10:21 Dose: 20 mg Magnesium Hydroxide (Milk Of Magnesium) 30 ml PO Q6H PRN PRN Reason: Constipation Last Admin: 07/08/18 17:03 Dose: 30 ml Metoprolol Tartrate (Lopressor) 100 mg PO BID [facility] Last Admin: 07/20/18 10:20 Dose: 100 mg Mineral Oil/White Petrolatum (Eucerin Cream) 0 gm TOP BIDPRN PRN PRN Reason: Dry Skin Miscellaneous Medication (Pharmacy To Dose) 1 each IVPB PRN PRN PRN Reason: Pharmacy to dose Nitroglycerin (Nitrostat) 0.4 mg SL Q5MIN PRN PRN Reason: Chest Pain Nystatin (Mycostatin Powder) 0 gm TOP BID [facility] Last Admin: 07/20/18 10:56 Dose: 1 applic Ondansetron HCl (Zofran) 4 mg SLOW IVP Q6H PRN PRN Reason: Nausea/Vomiting Last Admin: 07/14/18 10:08 Dose: 4 mg Pantoprazole Sodium (Protonix) 40 mg PO DAILY [facility] Last Admin: 07/20/18 10:19 Dose: 40 mg Polyethylene Glycol (Miralax) 17 gm PO DAILY [facility] Last Admin: 07/20/18 10:25 Dose: Not Given Prednisone (Prednisone) 15 mg PO QAM-WM [facility] Last Admin: 07/20/18 10:29 Dose: 15 mg Pregabalin (Lyrica) 25 mg PO Q8HR [facility] Last Admin: 07/20/18 13:57 Dose: 25 mg Promethazine HCl (Phenergan) 12.5 mg IVPB Q6H PRN PRN Reason: Nausea/Vomiting Last Admin: 07/12/18 19:35 Dose: 12.5 mg Rosuvastatin Calcium (Crestor) 10 mg PO DAILY [facility] Last Admin: 07/20/18 10:20 Dose: 10 mg Saccharomyces Boulardii (Florastor) 250 mg PO DAILY [facility] Last Admin: 07/20/18 10:23 Dose: 250 mg Sodium Chloride (Flush - Normal Saline) 10 ml IVF Q12HR [facility] Last Admin: 07/20/18 10:13 Dose: 10 ml Sodium Chloride (Flush - Normal Saline) 10 ml IVF PRN PRN PRN Reason: Saline Flush Last Admin: 07/20/18 11:29 Dose: 10 ml Sodium Chloride (Normal Saline Pf) 10 ml FS PRN PRN PRN Reason: RECONSTITUTION Last Admin: 07/16/18 09:13 Dose: 10 ml Sotalol HCl (Betapace) 120 mg PO BID [facility] Last Admin: 07/20/18 10:22 Dose: 120 mg Sterile Water (Water For Injection) 2.2 ml FS [facility] Stop: 07/20/18 22:00 Throat Lozenges (Cepastat Lozenges) 1 ric PO Q2H PRN PRN Reason: Sore Throat Last Admin: 07/19/18 23:19 Dose: 1 ric Thyroid ([place] Thyroid) 60 mg PO 0600 [facility] Last Admin: 07/20/18 05:14 Dose: 60 mg Tramadol HCl (Ultram) 50 mg PO Q6H PRN PRN Reason: Pain Last Admin: 07/20/18 10:51 Dose: 50 mg
[2018-07-20] MEDS: Insulin Regular 300 UNITS/3 ML VIAL SC PRN (17:29)
[2018-07-20] MEDS: Vancomycin HCl 1.25 GM in Sodium Chloride 0.9% 250 ML 250 ML IVPB SCH (22:13)
[2018-07-20] MEDS: Cepastat Lozenges 1 LOZ PO PRN (22:14)
[2018-07-21] MEDS: Piperacillin/Tazobactam 3.375 GM in Sodium Chloride 0.9% 100 ML IVPB SCH ×2 (06:00→10:10)
[2018-07-21] MEDS: Pregabalin 25 MG CAP PO SCH ×3 (06:01→22:09)
[2018-07-21] MEDS: Thyroid 60 MG TAB PO SCH (06:02)
[2018-07-21 06:36] LABS: Anion Gap 9 mmol/L (10-20); BUN (Urea Nitrogen) 11 mg/dL (9.8-20.1); Calc. Creatinine Clearance 82 mL/min (70-130); Calcium 8.2 mg/dL (7.8-10.44); Carbon Dioxide 26 mmol/L (23-31); Chloride 101 mmol/L (98-107); Estimated GFR-MDRD Greater than 90; Glucose 93 mg/dL (83-110); Magnesium 1.7 mg/dL (1.6-2.6); Potassium 3.3 mmol/L (3.5-5.1); Sodium 133 mmol/L (136-145)
[2018-07-21] MEDS: hydrALAZINE 25 MG TAB PO SCH ×3 (09:42→20:45)
[2018-07-21] MEDS: cloNIDine 0.3 MG TAB PO SCH ×3 (09:43→20:45)
[2018-07-21] MEDS: Furosemide 20 MG TAB PO SCH (09:43)
[2018-07-21] MEDS: Digoxin 0.125 MG TAB PO SCH (09:43)
[2018-07-21] MEDS: Rosuvastatin 10 MG TAB PO SCH (09:43)
[2018-07-21] MEDS: predniSONE 5 MG TAB PO SCH (09:44)
[2018-07-21] MEDS: Sotalol HCl 80 MG TAB PO SCH ×2 (09:44→20:43)
[2018-07-21] MEDS: Multivitamin W/ Minerals 1 TAB PO SCH (09:45)
[2018-07-21] MEDS: Saccharomyces boulardii 250 MG CAP PO SCH (09:45)
[2018-07-21] MEDS: Metoprolol Tartrate 100 MG TAB PO SCH ×2 (09:45→20:46)
[2018-07-21] MEDS: Bisacodyl 10 MG SUPP PR SCH (09:46)
[2018-07-21] MEDS: Nystatin Powder 15 GM BOT TOP SCH ×2 (09:48→20:53)
[2018-07-21] MEDS: traMADol HCl 50 MG TAB PO PRN (09:49)
[2018-07-21] MEDS: Lisinopril 20 MG TAB PO SCH ×2 (10:05→20:46)
--- NOTE | 2018-07-21 11:09 | PRG ---
DATE OF SERVICE: SUBJECTIVE: This morning, she says she is feeling better, weak, but no distress. She is having diarrhea. OBJECTIVE: VITAL SIGNS: Blood pressure 135/62, sats 96% on room air, respirations 18, temperature 98. CHEST: Bilateral rhonchi. CARDIAC: Normal S1, S2. No gallops. ABDOMEN: No masses. IMPRESSION: 1. Status post diverticulitis. 2. Severe deconditioning. 3. Diarrhea. PLAN: The patient is stable pulmonary higgins at this stage. Continue nutrition, PT, supportive care, neb treatments. We will follow. Job ID: [id number]
--- NOTE | 2018-07-21 11:46 | PDOC.PN ---
- Subjective Encounter Start Date: 07/21/18 Encounter Start Time: 11:45 Subjective: Seen and examined with no new complaint - Objective Resuscitation Status - Order Detail: 07/01/18 09:58 Resuscitation Status Routine Resuscitation Status: PRTL: Chem-Intubation Discussed with: Patient Additional comments: Cardioversion also ok. No compressions. Vital Signs & Weight: Vital Signs (12 hours) Temp Pulse Ox 07/21/18 11:24 98.9 F 07/21/18 07:31 96 07/21/18 07:04 98.0 F 07/21/18 04:00 98.8 F 07/21/18 00:00 98.2 F Weight Admit Weight 140 lb Weight 138 lb 6 oz Most Recent Monitor Data Heart Rate from ECG 80 NIBP 135/62 NIBP BP-Mean 86 Respiration from ECG 26 SpO2 98 I&O: 07/20/18 07/21/18 07/22/18 06:59 06:59 07:59 Intake Total 2530 1990 Output Total 3570 1045 Balance -1040 945 Result Diagrams: 07/20/18 05:25 07/21/18 06:00 Additional Labs: Accuchecks 07/21/18 07/20/18 06:09 16:35 POC Glucose 106 202 H Phys Exam - Physical Examination Constitutional: NAD HEENT: PERRLA, moist MMs, sclera anicteric, TM's clear Neck: no nodes, no JVD, supple, full ROM Respiratory: no wheezing, no rales, no rhonchi, clear to auscultation bilateral Cardiovascular: no significant murmur, no rub Gastrointestinal: soft, non-tender, no distention, positive bowel sounds Musculoskeletal: pulses present Dx/Plan (1) HNP (herniated nucleus pulposus with myelopathy), thoracic Code(s): M51.04 - INTERVERTEBRAL DISC DISORDERS W MYELOPATHY, THORACIC REGION Status: Acute (2) Radiculopathy due to lumbar intervertebral disc disorder Code(s): M51.16 - INTERVERTEBRAL DISC DISORDERS W RADICULOPATHY, LUMBAR REGION Status: Acute (3) Acute metabolic encephalopathy Code(s): G93.41 - METABOLIC ENCEPHALOPATHY Status: Acute Comment: IV fluids , hold sedatives, watch labs (4) Afib Code(s): I48.91 - UNSPECIFIED ATRIAL FIBRILLATION Status: Acute (5) Healthcare-associated pneumonia Code(s): J18.9 - PNEUMONIA, UNSPECIFIED ORGANISM Status: Acute Comment: LLL , CT abdomen showed lower lobe infiltrate, No WBC elevation noted. Chest xray two view showed no infiltrtae. Will continue with Nebs. On abx (6) Hypertension Code(s): I10 - ESSENTIAL (PRIMARY) HYPERTENSION Status: Acute Qualifiers: Hypertension type: essential hypertension Qualified Code(s): I10 - Essential (primary) hypertension (7) Chronic back pain Code(s): M54.9 - DORSALGIA, UNSPECIFIED; G89.29 - OTHER CHRONIC PAIN Status: Chronic (8) Hypothyroidism Code(s): E03.9 - HYPOTHYROIDISM, UNSPECIFIED Status: Chronic Qualifiers: Hypothyroidism type: acquired Qualified Code(s): E03.9 - Hypothyroidism, unspecified (9) Sjogren's syndrome Code(s): M35.00 - SICCA SYNDROME, UNSPECIFIED Status: Chronic Qualifiers: Sjogren's organ involvement: unspecified organ involvement Qualified Code(s ): M35.00 - Sicca syndrome, unspecified - Plan continue antibiotics, PT/OT, forensic social worker, respiratory therapy, DVT proph w/ lovenox Awaiting Rehab placement * .
[2018-07-21] MEDS: Polyethylene Glycol 3350 17 GM Packet PO SCH (12:45)
[2018-07-21] MEDS: metroNIDAZOLE 500 MG TAB PO SCH ×2 (16:36→20:44)
[2018-07-21] MEDS: Ciprofloxacin 500 MG TAB PO SCH (20:46)
[2018-07-21 21:50] LABS: Vancomycin, Trough 15.4 ug/mL
[2018-07-21] MEDS: Vancomycin HCl 1.25 GM in Sodium Chloride 0.9% 250 ML 250 ML IVPB SCH (22:10)
[2018-07-22] MEDS: traMADol HCl 50 MG TAB PO PRN (01:22)
[2018-07-22] MEDS: Pregabalin 25 MG CAP PO SCH ×2 (06:14→15:11)
[2018-07-22] MEDS: Ciprofloxacin 500 MG TAB PO SCH (06:15)
[2018-07-22] MEDS: Thyroid 60 MG TAB PO SCH (06:15)
[2018-07-22 07:11] LABS: Anion Gap 9 mmol/L (10-20); BUN (Urea Nitrogen) 11 mg/dL (9.8-20.1); Calc. Creatinine Clearance 79 mL/min (70-130); Calcium 8.4 mg/dL (7.8-10.44); Carbon Dioxide 28 mmol/L (23-31); Chloride 100 mmol/L (98-107); Estimated GFR-MDRD Greater than 90; Glucose 100 mg/dL (83-110); Potassium 3.3 mmol/L (3.5-5.1); Sodium 134 mmol/L (136-145)
[2018-07-22] MEDS ORDERED: Enoxaparin Sodium 30 MG/0.3 ML SYRINGE SC SCH (09:00)
[2018-07-22] MEDS: hydrALAZINE 25 MG TAB PO SCH ×2 (10:38→15:10)
[2018-07-22] MEDS: Digoxin 0.125 MG TAB PO SCH (10:41)
[2018-07-22] MEDS: Furosemide 20 MG TAB PO SCH (10:42)
[2018-07-22] MEDS: cloNIDine 0.3 MG TAB PO SCH ×2 (10:42→15:11)
[2018-07-22] MEDS: Polyethylene Glycol 3350 17 GM Packet PO SCH (10:42)
[2018-07-22] MEDS: Multivitamin W/ Minerals 1 TAB PO SCH (10:42)
[2018-07-22] MEDS: predniSONE 5 MG TAB PO SCH (10:43)
[2018-07-22] MEDS: Metoprolol Tartrate 100 MG TAB PO SCH (10:43)
[2018-07-22] MEDS: metroNIDAZOLE 500 MG TAB PO SCH ×2 (10:43→15:10)
[2018-07-22] MEDS: Sotalol HCl 80 MG TAB PO SCH (10:44)
[2018-07-22] MEDS: Lisinopril 20 MG TAB PO SCH (10:45)
[2018-07-22] MEDS: Rosuvastatin 10 MG TAB PO SCH (10:45)
[2018-07-22] MEDS: Saccharomyces boulardii 250 MG CAP PO SCH (10:45)
[2018-07-22] MEDS: Bisacodyl 10 MG SUPP PR SCH (10:46)
[2018-07-22] MEDS: Nystatin Powder 15 GM BOT TOP SCH (10:47)
--- NOTE | 2018-07-22 11:27 | PDOC.PN ---
- Subjective Encounter Start Date: 07/22/18 Encounter Start Time: 11:27 Patient seen and examined. No new complaints. No overnight events. feeling good. Tolerating good well. No abd pain or N/V - Objective Resuscitation Status - Order Detail: 07/01/18 09:58 Resuscitation Status Routine Resuscitation Status: PRTL: Chem-Intubation Discussed with: Patient Additional comments: Cardioversion also ok. No compressions. MAR Reviewed: Yes Vital Signs & Weight: Vital Signs (12 hours) Temp Pulse BP BP Pulse Ox 07/22/18 10:45 150/58 H 07/22/18 10:44 75 150/58 H 07/22/18 10:42 150/58 H 07/22/18 10:41 75 07/22/18 10:38 81 150/58 H 07/22/18 08:00 75 150/58 H 99 07/22/18 07:17 98.5 F 07/22/18 04:00 98.2 F 07/22/18 00:00 98.1 F Weight Admit Weight 140 lb Weight 138 lb 6 oz Most Recent Monitor Data Heart Rate from ECG 75 NIBP 150/58 NIBP BP-Mean 88 Respiration from ECG 18 SpO2 80 I&O: 07/21/18 07/22/18 07/23/18 05:59 06:59 06:59 Intake Total Output Total Balance Result Diagrams: 07/20/18 05:25 07/22/18 06:30 Phys Exam - Physical Examination Constitutional: NAD HEENT: sclera anicteric Neck: supple Respiratory: no wheezing, no rales Cardiovascular: no significant murmur Gastrointestinal: soft Musculoskeletal: no edema Neurological: non-focal, moves all 4 limbs Psychiatric: normal affect, A&O x 3 Skin: no rash Dx/Plan (1) Radiculopathy due to lumbar intervertebral disc disorder Code(s): M51.16 - INTERVERTEBRAL DISC DISORDERS W RADICULOPATHY, LUMBAR REGION Status: Acute (2) Acute blood loss anemia Code(s): D62 - ACUTE POSTHEMORRHAGIC ANEMIA Status: Acute Comment: Likely due to Lower GI bleed Patient will benefit from elective colectomy Will follow GI recs Will transfuse when H/H <7 will monitor CBC in the AM (3) Afib Code(s): I48.91 - UNSPECIFIED ATRIAL FIBRILLATION Status: Acute (4) Heart failure with preserved ejection fraction Code(s): I50.30 - UNSPECIFIED DIASTOLIC (CONGESTIVE) HEART FAILURE Status: Acute (5) SBO (small bowel obstruction) Code(s): K56.609 - UNSP INTESTNL OBST, UNSP TO PARTIAL VERSUS COMPLETE OBST Status: Acute Comment: Resolving with current measures, NGT d/c'd (6) Acute diverticulitis of intestine Code(s): K57.92 - DVTRCLI OF INTEST, PART UNSP, W/O PERF OR ABSCESS W/O BLEED Status: Chronic (7) Sjogren's syndrome Code(s): M35.00 - SICCA SYNDROME, UNSPECIFIED Status: Chronic Qualifiers: Sjogren's organ involvement: unspecified organ involvement Qualified Code(s ): M35.00 - Sicca syndrome, unspecified (8) Sepsis Code(s): A41.9 - SEPSIS, UNSPECIFIED ORGANISM Status: Resolved Qualifiers: Sepsis type: sepsis due to unspecified organism Qualified Code(s): A41.9 - Sepsis, unspecified organism - Plan * . continue abx continue cardiac meds waiting for rehab placement replete K AM labs.
--- NOTE | 2018-07-22 11:30 | PRG ---
DATE OF SERVICE: 07/22/2018 SUBJECTIVE: This morning, she says she is feeling better. Less pain. Less shortness of breath. OBJECTIVE: VITAL SIGNS: Blood pressure , pulse 75, respiratory rate 18, and temperature 98. CHEST: Decreased breath sounds. No wheezing. CARDIAC: Normal S1 and S2. No gallops. ABDOMEN: No masses. DIAGNOSTIC STUDIES: Lytes are normal. Potassium 3.3. ASSESSMENT: Diverticulitis, diarrhea and deconditioning. PLAN: She is much improved. Continue PT and supportive care. Job ID: [id number]
[2018-07-22] MEDS ORDERED: Potassium Chloride 20 MEQ TAB PO SCH (12:00)
[2018-07-22 18:11] VITALS: BP 146/88
[2018-07-22 19:47] VITALS: TEMP 98.6
--- NOTE | 2018-07-23 15:57 | DIS ---
DATE OF ADMISSION: 06/30/2018 DATE OF DISCHARGE: 07/22/2018 DISCHARGE DIAGNOSES: 1. severe sepsis. 2. Complicated diverticulitis with abscess status post drainage 07/12. 3. Aflutter/atrial fibrillation with rapid ventricular rate and status post direct current cardioversion on 07/10/2018, remained in sinus rhythm, and started on Cardizem, Sotalol, metoprolol, and Lovenox . 4. status post surgical intervention on 07/04/2018. 5. Hypertension. 6. Chronic diastolic heart failure. 7. Chronic obstructive pulmonary disease. 8. Hyperlipidemia. 9. Hypothyroidism. 10. History of Sjogren disease. 11. Moderate protein energy malnutrition. 12. Irritable bowel syndrome. 13. Electrolyte imbalance including hypokalemia, hypomagnesemia, hypophosphatemia. 14. Elevated troponin due to demand ischemia. 15. Hyponatremia. 16. Chronic anemia. 17. Polypharmacy. CONSULTS: Dr. Hairston from Neurosurgery. Dr. Thomson. Dr. Lizama from Pulmonology. from Cardiology. Dr. Julian from Electrophysiology. Dr. Fish and Dr. Alfonso, and Dr. Valentino from Surgery. Dr. Tello from GI. Dr. Hidalgo from Cardiology. Dr. Ruiz from Pulmonology. PROCEDURES: 1. T10-T11 laminectomy with left-sided facetectomy by Dr. Hairston on 07/03/2018. 2. Cardioversion by . 3. CT-guided abscess drainage by IR. HOSPITAL COURSE: This is a 77-year-old female who is admitted to the hospital with pain in the left leg and she had a complicated prolonged hospital course almost for a month. Please check the hospital records and H and P for details. The patient was initially admitted with left leg pain and was to found to have disk extrusion and evaluated for surgery and surgery done by Dr. Hairston. Please see the operative note, and the patient was being monitored and postoperatively she has also had some abdominal pain for which CT was done, showed diverticular abscess and she was on antibiotics. She also had drainage of that and was feeling better. She was also having some cardiac issues and Cardiology saw her. She was in atrial fibrillation. She had direct current cardioversion and she was on multiple cardiac medications during the hospitalization. She was also evaluated by Pulmonology during this admission. On the day of discharge, the patient was feeling better, controlled abdominal pain and no GI symptoms reported, and her cardiac issues under control. Her heart rate was controlled and Cardiology was also following. The patient was deemed appropriate for rehab admission, and approved for transfer and will be transferred to rehab. The patient is placed on multiple medications, especially multiple cardiac medications, which might have interactions and needs close monitoring as outpatient. DISCHARGE MEDICATIONS: 1. Clonidine 0.3 mg p.o. daily. 2. Omeprazole 20 mg p.o. daily. 3. Hydralazine 100 mg p.o. daily. 4. Furosemide 40 mg p.o. daily. 5. Aspirin 81 mg p.o. daily. 6. Lisinopril 20 mg p.o. daily. 7. Imdur 30 mg p.o. b.i.d. 8. Sotalol 80 mg p.o. b.i.d. 9. Crestor 10 mg p.o. daily. 10. Metoprolol 50 mg p.o. b.i.d. 11. Prednisone 50 mg p.o. daily. 12. [place] Thyroid 60 mg p.o. q.a.m. 13. Cipro 500 mg p.o. b.i.d. 14. Flagyl 500 mg p.o. t.i.d. DISCHARGE FOLLOWUP: This patient will follow up with physicians at the rehab, and also post rehab the patient needs close monitoring by Cardiology and primary care physicians. CONDITION ON DISCHARGE: Stable. TIME SPENT: Please note that I did spend more than 35 minutes coordinating the discharge care of this patient. Job ID: [id number]
--- NOTE | 2018-07-24 09:36 | EKG ---
Test Reason : Blood Pressure : / mmHG Vent. Rate : 075 BPM Atrial Rate : 075 BPM P-R Int : 296 ms QRS Dur : 090 ms QT Int : 390 ms P-R-T Axes : 077 010 220 degrees QTc Int : 435 ms Electronic atrial pacemaker Abnormal ECG Confirmed by MAGGIE HERNANDEZ ([id number]) on 07/24/2018 9:35:59 AM Referred By: MIKAELA Confirmed By:MAGGIE HERNANDEZ
== END 2018-07-22 19:55 | DRG 518 ==
LOC: ERS 15:04 → SURG A 20:42 → CCU 07-04 11:12 → SURG A 07-06 20:28 → 2NO 07-08 21:51 → IMCU/EMU 07-12 09:23
PROVIDERS: ADMIT Hospitalist; ATTEND Hospitalist
PROC: 0RB90ZZ Excision of Thoracic Vertebral Disc, Open Approach (ICD-10-PCS; principal; 2018-07-03)
PROC: 0SB40ZZ Excision of Lumbosacral Disc, Open Approach (ICD-10-PCS; 2018-07-03)
PROC: 01NB0ZZ Release Lumbar Nerve, Open Approach (ICD-10-PCS; 2018-07-03)
PROC: 5A2204Z Restoration of Cardiac Rhythm, Single (ICD-10-PCS; 2018-07-10)
PROC: 0D9 Gastrointestinal System, Drainage (ICD-10-PCS; 2018-07-12)
PROC: 02HV33Z Insertion of Infusion Device into Superior Vena Cava, Percutaneous Approach (ICD-10-PCS; 2018-07-13)
PROC: 30233N1 Transfusion of Nonautologous Red Blood Cells into Peripheral Vein, Percutaneous Approach (ICD-10-PCS; 2018-07-14)
PROC: 3E0436Z Introduction of Nutritional Substance into Central Vein, Percutaneous Approach (ICD-10-PCS; 2018-07-14)
DX: M51.04 Intervertebral disc disorders with myelopathy, thoracic region (principal); A41.9 Sepsis, unspecified organism; R65.20 Severe sepsis without septic shock; G93.41 Metabolic encephalopathy; J18.1 Lobar pneumonia, unspecified organism; I47.1 Supraventricular tachycardia; I48.4 Atypical atrial flutter; I50.32 Chronic diastolic (congestive) heart failure; E87.1 Hypo-osmolality and hyponatremia; I24.8 Other forms of acute ischemic heart disease; K56.7 Ileus, unspecified; K57.20 Diverticulitis of large intestine with perforation and abscess without bleeding; D62 Acute posthemorrhagic anemia; E44.0 Moderate protein-calorie malnutrition; I44.1 Atrioventricular block, second degree; I11.0 Hypertensive heart disease with heart failure; M71.38 Other bursal cyst, other site; M51.17 Intervertebral disc disorders with radiculopathy, lumbosacral region; M35.00 Sjogren syndrome, unspecified; I48.91 Unspecified atrial fibrillation; G89.4 Chronic pain syndrome; E89.0 Postprocedural hypothyroidism; D64.9 Anemia, unspecified; B96.20 Unspecified Escherichia coli [E. coli] as the cause of diseases classified elsewhere; M81.0 Age-related osteoporosis without current pathological fracture; Z87.310 Personal history of (healed) osteoporosis fracture; E78.5 Hyperlipidemia, unspecified; B95.2 Enterococcus as the cause of diseases classified elsewhere; J44.9 Chronic obstructive pulmonary disease, unspecified; E87.6 Hypokalemia; Z95.0 Presence of cardiac pacemaker; Z95.818 Presence of other cardiac implants and grafts; K58.1 Irritable bowel syndrome with constipation; Z86.73 Personal history of transient ischemic attack (TIA), and cerebral infarction without residual deficits; Z79.82 Long term (current) use of aspirin; Z79.52 Long term (current) use of systemic steroids; Z68.27 Body mass index [BMI] 27.0-27.9, adult
CPT/HCPCS: 36415; 36416; 36430; 36569; 49020; 70450; 71045; 72131; 72148; 72170; 74018; 74019; 74177; 76000; 77002; 80048; 80053; 80061; 80202; 83690; 83735; 84100; 84134; 84484; 85007; 85014; 85018; 85025; 85027; 85046; 85610; 85730; 86140; 86850; 86900; 86901; 87070; 87076; 87077; 87186; 87205; 92960; 93005; 93010; 93970; 96374; A4216; A4217; C1751; C9113; J0131; J0360; J0690; J1160; J1170; J1644; J1650; J1815; J1940; J2001; J2250; J2270; J2405; J2543; J2550; J2704; J2930; J2997; J3010; J3370; J3475; J3480; J3490; J7050; J7512; P9016; Q9966; Q9967

== ENCOUNTER 2018-08-15 09:04 | Outpatient (CLI) | payer MEDICARE, BC ==
--- NOTE | 2018-08-15 09:23 | RAD ---
FXR Chest Pa Lat @ POB History: [Reason For Study] Comparison: Radiograph August 07, 2018 Findings: Heart size is enlarged. Mild edema. No pneumothorax. The bones are osteopenic with indwelli ng cement at the thoracolumbar junction. Moderate degenerative changes of both acromioclavicular join ts. Impression: Cardiomegaly and mild pulmonary edema.
== END 2018-08-15 09:05 | disposition home or self-care (01) ==
LOC: RAD 09:04
PROVIDERS: ATTEND Internal Medicine Critical Care Medicine
DX: R06.00 Dyspnea, unspecified (principal); I51.7 Cardiomegaly; J81.1 Chronic pulmonary edema
CPT/HCPCS: 71046

== ENCOUNTER 2018-08-28 14:50 | Inpatient (IN) | payer MEDICARE, BC ==
[~2018-08-28 14:50] MED LIST changes: -Heparin 1,000 UNITS/ML VIAL ONE; +ISOVUE-370 76%-LOCM 1 ML ONE; +Iopamidol 370 76% 50 ML VIAL FS ONE
[2018-08-28] MEDS ORDERED: Morphine 4 MG/ML VIAL ONE ×2 (15:25→18:31)
[2018-08-28] MEDS ORDERED: Metoclopramide HCl 10 MG/2 ML VIAL ONE (15:25)
[2018-08-28 15:51] LABS: Hemoglobin 11.6 g/dL (12.0-16.0); Mean Corpuscular HGB CONC 31.1 g/dL (32.0-36.0); Mean Corpuscular Volume 86.8 fL (78.0-98.0); Mean Platelet Volume 7.3 fL (7.4-10.4); Platelet Count 382 thou/uL (130-400); RBC Distribution Width 16.9 % (11.5-14.5); Red Blood Cell (RBC) Count 4.31 mill/uL (4.20-5.40)
[2018-08-28 16:07] LABS: Anisocytosis SLIGHT = 6-15 cells (100X) (0-5/hpf); Band 6 % (5-11); Lymphocytes 25 % (21-51); MDiff Complete? YES; Monocytes 4 % (0-10); Neutrophil 65 % (42-75); Platelet Morphology Comment Appears Adequate
[2018-08-28 16:10] LABS: ALT (SGPT) 86 U/L (8-55); AST (SGOT) 99 U/L (5-34); Albumin 3.4 g/dL (3.4-4.8); Alkaline Phosphatase 119 U/L (40-150); Anion Gap 15 mmol/L (10-20); BUN (Urea Nitrogen) 12 mg/dL (9.8-20.1); Bilirubin, Total 0.6 mg/dL (0.2-1.2); Calc. Creatinine Clearance 0 mL/min (70-130); Calcium 9.4 mg/dL (7.8-10.44); Carbon Dioxide 23 mmol/L (23-31); Chloride 103 mmol/L (98-107); Estimated GFR-MDRD 81; Globulin 3.1 g/dL (2.4-3.5); Glucose 171 mg/dL (83-110); Lipase 26 U/L (8-78); Potassium 3.6 mmol/L (3.5-5.1); Protein, Total 6.5 g/dL (6.0-8.3); Sodium 137 mmol/L (136-145)
--- NOTE | 2018-08-28 18:55 | CT ---
ABDOMEN AND PELVIC CT SCAN WITH IV CONTRAST: 08/28/18 HISTORY: Left sided abdominal pain, nausea, vomiting, diarrhea. COMPARISON: 07/14/17. FINDINGS: Severe bone demineralization with numerous vertebroplasty changes. The visualized lower lungs are unr emarkable. Small pericardial effusion. Status post cholecystectomy. Liver, pancreas, spleen, adrenal glands show no significant acute process. No renal hydronephrosis or renal calculi. There is abnormal wall thickening of the colon including the mid and distal transverse colon, splenic flexure, and lef t colon extending down into the sigmoid colon. In the sigmoid portion of the colon, there are extensi ve diverticulosis changes. The previously drained anterior inferior left lower quadrant abscess has r eaccumulated some fluid and air and now measures 2.3 x 3.2 cm. There appears to be a sinus tract betw een the colon and this walled off collection. There is trace free fluid. There is a skin and subcutan eous defect dorsally in the midline at the level of L5 presumably related to recent surgery. IMPRESSION: Abnormal colonic wall thickening involving the transverse left colon and sigmoid colon evidence for n onspecific acute colitis. Extensive diverticulosis changes in the sigmoid colon. Small sinus tract fr om the sigmoid colon to the previously drained collection in the anterior inferior left lower quadran t with reaccumulation of a small amount of fluid and air. Trace free fluid in the pelvis. Numerous ot her findings as above. POS: [facility]
[2018-08-28] MEDS ORDERED: Piperacillin/Tazobactam 4.5 GM VIAL ONE (19:26)
[2018-08-28] MEDS ORDERED: hydrALAZINE 20 MG/ML VIAL ONE (19:26)
[2018-08-28] MEDS ORDERED: Ondansetron ODT 4 MG TAB SL PRN (21:06)
[2018-08-28] MEDS ORDERED: Vancomycin HCl 1 GM in Premix Bag 1 BAG IVPB SCH (21:15)
[2018-08-28] MEDS: Ondansetron PF 4 MG/2 ML Vial IVP PRN (21:37)
[2018-08-28] MEDS: Morphine 4 MG/ML VIAL SLOW IVP PRN (22:09)
[2018-08-28 22:43] VITALS: BMI 26.4
[2018-08-28] MEDS ORDERED: Sotalol HCl 80 MG TAB PO SCH (23:45)
[2018-08-28] MEDS ORDERED: Metoprolol Tartrate 100 MG TAB PO SCH (23:45)
[2018-08-29] MEDS ORDERED: Metoprolol Tartrate 5 MG/5 ML VIAL IVP PRN (00:38)
[2018-08-29] MEDS: Sodium Chloride 0.9% 1,000 ML IV SCH ×2 (00:53→23:57)
[2018-08-29] MEDS: Morphine 4 MG/ML VIAL SLOW IVP PRN (02:38)
[2018-08-29] MEDS: Ondansetron PF 4 MG/2 ML Vial IVP PRN ×3 (04:16→21:18)
--- NOTE | 2018-08-29 05:20 | HP ---
CHIEF COMPLAINT: Abdominal pain, nausea, vomiting, and diarrhea. HISTORY OF PRESENT ILLNESS: The patient is a 77-year-old female; history of hypertension; atrial fibrillation and atrial flutter, status post cardioversion; hypothyroidism; COPD; and diverticulitis with abscess; who presents to the hospital with nausea, vomiting, abdominal pain, and diarrhea x1 day. She states that she was doing well; however, yesterday morning, she was started having significant amount of nausea, vomiting, and then later on, around 2 o'clock in the afternoon, she was started having significant amount of loose soft stools. There was no diarrhea. The patient denies any fevers or chills. She was also started having pain to her left lower quadrant area. She states that she has been currently on antibiotic that was prescribed by her neurosurgeon for concerns for possible wound infection. She denies again any chest pain, any shortness of breath, and has been having a good appetite. However, today, she has not eaten anything all day. PAST MEDICAL HISTORY: 1. History of atrial fibrillation, atrial flutter, status post cardioversion. 2. Hypertension. 3. Chronic diastolic failure. 4. COPD. 5. Hyperlipidemia. 6. Hypothyroidism. 7. Sjogren disease. 8. Irritable bowel syndrome. 9. Hyponatremia. 10. Chronic anemia. PAST SURGICAL HISTORY: 1. She has had her diverticular abscess drained recently. 2. She has also had a Watchman device placed and a pacemaker placed . 3. Lumbar laminectomy and cervical laminectomy. 4. Thyroidectomy. 5. Vertebroplasty. FAMILY HISTORY: Notable for strokes. SOCIAL HISTORY: She denies any alcohol use, drug abuse. She lives with her significant other. 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 ALLERGIES: SHE HAS ALLERGIES TO AMLODIPINE. CURRENT MEDICATIONS: She takes: 1. Clonidine 0.3 p.o. t.i.d. 2. Omeprazole 20 mg daily. 3. Hydralazine 100 mg t.i.d. 4. Lasix 40 mg daily. 5. Aspirin 81 mg daily. 6. Imodium 2 mg p.o. q.i.d. p.r.n. 7. Zestril 20 mg b.i.d. 8. Imdur 30 mg b.i.d. 9. Sotalol 80 mg b.i.d. 10. Rosuvastatin 10 mg daily. 11. Lopressor 50 mg b.i.d. 12. . 13. Prednisone is 5 mg daily. PHYSICAL EXAMINATION: VITAL SIGNS: Temperature of 98.8, heart rates ranging from 99 to 120, blood pressure of 150/65, and 98% on room air. GENERAL: She is awake, alert, and oriented x3. Does not appear in any distress. HEENT: Normocephalic, atraumatic. No lymphadenopathy noted. CV: S1, S2 present. No murmurs, rubs, or gallops. LUNGS: Clear to auscultation. No rhonchi or wheezes noted. ABDOMEN: Soft. Bowel sounds are present x2. Pain upon palpation to her left lower quadrant. EXTREMITIES: No edema. Pedal pulses are present x2. NEUROVASCULAR: No focal deficits noted. SKIN: No cuts, lesions, or bruises noted. LABORATORY AND DIAGNOSTIC DATA: WBCs of 22,000, hemoglobin of 11.6, hematocrit of 37.5, and platelets of 382. Chemistry; sodium of 137, potassium of 3.6, BUN of 12, creatinine 0.70. Mildly elevated LFTs. Her BNP is 1019. There was no urine done. She did have a CT of abdomen and pelvis done, which indicated extensive diverticulosis, changes in the sigmoid colon, small sinus tract from the sigmoid colon to the previously drained collection in the anteroinferior left lower quadrant with reaccumulation of small amount of fluid and air. Also, abnormal colonic wall thickening involving the transverse left colon and sigmoid colon. Evidence of nonspecific acute colitis. ASSESSMENT AND PLAN: The patient is a very pleasant 77-year-old female, who presents to the hospital with complaints of nausea, vomiting, abdominal pain. 1. Nausea, vomiting, abdominal pain, possible acute colitis versus worsening abscess to her left lower abdominal area. Last time, her cultures indicated Escherichia coli and Bacteroides, which were susceptible to Zosyn. I will continue the Zosyn for now, which will also cover anaerobes. Also, I will consult Surgery, keep the patient n.p.o., start her on some gentle hydration. 2. Atrial fibrillation with rapid ventricular response, uncontrolled. The patient was given oral medications, however, with no significant effect, I will start her on a Cardizem drip for now for better rate control. 3. History of hypertension. Again, we will continue her home medications and continue to monitor. 4. Leukocytosis. We will continue on broad-spectrum antibiotics and Surgery has been consulted. I would recommend also getting Infectious Disease involved. 5. Hypothyroidism. We will continue her home dose of [place]. 6. Deep venous thrombosis prophylaxis. We will put the patient on some SCDs. Job ID: [id number]
[2018-08-29] MEDS: Piperacillin/Tazobactam 3.375 GM in Sodium Chloride 0.9% 100 ML IVPB SCH ×4 (05:40→23:56)
[2018-08-29 05:45] LABS: #Basophils 0.1 thou/uL (0.0-0.2); #Eosinphils 0.3 thou/uL (0.0-0.7); #Lymphocytes 4.9 thou/uL (1.20-3.40); #Monocytes 1.6 thou/uL (0.11-0.59); #Neutrophils 12.8 thou/uL (1.40-6.50); %Basophils 0.6 % (0.0-1.0); %Eosinophils 1.8 % (0.0-10.0); %Lymphocytes 24.8 % (21.0-51.0); %Monocytes 7.9 % (0.0-10.0); %Neutrophils 64.9 % (42.0-75.0); Mean Corpuscular HGB CONC 31.7 g/dL (32.0-36.0); Mean Corpuscular Hemoglobin 26.9 pg (27.0-31.0); Mean Corpuscular Volume 84.7 fL (78.0-98.0); Mean Platelet Volume 7.9 fL (7.4-10.4); Platelet Count 362 thou/uL (130-400); RBC Distribution Width 16.9 % (11.5-14.5); White Blood Cell (WBC) Count 19.7 thou/uL (4.8-10.8)
[2018-08-29] MEDS ORDERED: Diltiazem 125 MG in Sodium Chloride 0.9% 100 ML IVPB SCH ×2 (05:45→12:00)
[2018-08-29] MEDS ORDERED: diphenhydrAMINE 50 MG/ML VIAL IVP SCH (06:15)
[2018-08-29 06:55] LABS: Anion Gap 13 mmol/L (10-20); BUN (Urea Nitrogen) 10 mg/dL (9.8-20.1); Calc. Creatinine Clearance 61 mL/min (70-130); Calcium 8.8 mg/dL (7.8-10.44); Carbon Dioxide 26 mmol/L (23-31); Chloride 104 mmol/L (98-107); Estimated GFR-MDRD 77; Glucose 131 mg/dL (83-110); Potassium 3.1 mmol/L (3.5-5.1); Sodium 140 mmol/L (136-145)
[2018-08-29] MEDS: Digoxin 0.125 MG TAB PO SCH (10:26)
[2018-08-29] MEDS: Thyroid 60 MG TAB PO SCH (10:28)
[2018-08-29] MEDS ORDERED: diphenhydrAMINE 25 MG in Sodium Chloride 0.9% 50 ML IVPB PRN (12:17)
[2018-08-29] MEDS ORDERED: Morphine 4 MG/ML VIAL SLOW IVP PRN (12:19)
--- NOTE | 2018-08-29 12:23 | PDOC.PN ---
- Subjective Encounter Start Date: 08/29/18 Encounter Start Time: 12:15 Subjective: f/u for abd pain and diverticulitis/colitis on Zosyn. c/o persistent -: N/V and itching. Multiple loose stools, no melena. Last po intake -: 36h ago. Recently rx Keflex. - Objective Resuscitation Status - Order Detail: 08/29/18 00:35 Resuscitation Status Routine Resuscitation Status: PRTL: Chem-Intubation Discussed with: PATIENT Additional comments: PT DOES NOT WANT CPR, DEFIBRILLATION AND CARDIOVERSION IS OK MAR Reviewed: Yes Vital Signs & Weight: Vital Signs (12 hours) Temp Pulse Resp BP Pulse Ox 08/29/18 09:12 142/85 H 08/29/18 07:43 97.3 F L 111 H 18 210/65 H 94 L 08/29/18 05:32 83 148/65 H 08/29/18 05:26 94 133/61 08/29/18 03:55 97.9 F 117 H 20 150/66 H 92 L 08/29/18 01:31 132 H 130/61 08/29/18 01:16 126 H 134/72 08/29/18 01:10 155 H 154/77 H Weight Weight 131 lb 1.6 oz I&O: 08/28/18 08/29/18 08/30/18 06:59 06:59 06:59 Intake Total 435 Output Total 320 Balance 115 Result Diagrams: 08/29/18 05:01 08/29/18 05:01 Additional Labs: Laboratory Tests 08/28/18 08/28/18 15:41 15:41 WBC 22.0 H Hgb 11.6 L Potassium 3.6 AST 99 H ALT 86 H Radiology Reviewed by me: Yes (CT abd/pel - colonic wall thickening transverse/ sigmoid) EKG Reviewed by me: Yes (Tele - A-fib RVR) Phys Exam - Physical Examination agitated, alert, responsive in distress HEENT: PERRLA, sclera anicteric, oral pharynx no lesions Neck: no nodes, no JVD, supple, full ROM Respiratory: no wheezing, no rales, no rhonchi, clear to auscultation bilateral S1, S2 Cardiovascular: no significant murmur, no rub, irregular TTP in TERRI/LLQ, diminished bowel sounds Gastrointestinal: soft, no distention Musculoskeletal: no edema, pulses present Neurological: normal sensation, moves all 4 limbs Psychiatric: A&O x 3 Skin: normal turgor, cap refill <2 seconds Dx/Plan (1) Sepsis Code(s): A41.9 - SEPSIS, UNSPECIFIED ORGANISM Status: Acute Qualifiers: Sepsis type: sepsis due to unspecified organism Qualified Code(s): A41.9 - Sepsis, unspecified organism Comment: Appears to be GI source with colitis/diverticulitis, continue Zosyn, blood cx pending (2) Abdominal pain Code(s): R10.9 - UNSPECIFIED ABDOMINAL PAIN Status: Acute Qualifiers: Abdominal location: left lower quadrant Qualified Code(s): R10.32 - Left lower quadrant pain Comment: Likely colitis vs diverticular source, see below, continue Zosyn, pain control with Morphine Sulfate, Gen Surgery consult (3) Colitis Code(s): K52.9 - NONINFECTIVE GASTROENTERITIS AND COLITIS, UNSPECIFIED Status : Acute Comment: ? infectious with recent Keflex rx, continue Zosyn, check stool studies, NPO (4) Nausea & vomiting Code(s): R11.2 - NAUSEA WITH VOMITING, UNSPECIFIED Status: Acute Comment: Secondary to #1, Zofran/Phenergan, IVF's, NPO status (5) Atrial fibrillation with RVR Code(s): I48.91 - UNSPECIFIED ATRIAL FIBRILLATION Status: Resolved Comment: Rate variable, increase Cardizem 7.5mg/hr, resume Metoprolol, Sotalol, Digoxin (6) Hypertension Code(s): I10 - ESSENTIAL (PRIMARY) HYPERTENSION Status: Chronic Qualifiers: Hypertension type: essential hypertension Qualified Code(s): I10 - Essential (primary) hypertension Comment: Labile secondary to abd pain and inconsistent po intake of antihypertensives, resume home BP regimen, serial monitoring, Hydralazine IV prn - Plan plan discussed w/ family, continue antibiotics, social insurance adviser, out of bed/ ambulate, DVT proph w/SCDs Continue supportive mgmt -: Continue IVF's -: Continue Zosyn -: Add Phenergan IV for N/V -: Add Morphine Sulfate 4mg IV q4h prn * .
[2018-08-29] MEDS ORDERED: Morphine 4 MG/ML VIAL SLOW IVP SCH (12:30)
--- NOTE | 2018-08-29 14:02 | CON ---
DATE OF CONSULTATION: DICTATED FOR: Juan Hairston MD This is a 50-minute initial patient evaluation, of which greater than 50% of the exam was spent in counseling and coordinating the patient's care. Remainder of the exam was spent review of the patient's medical records and formulation of treatment plan. CHIEF COMPLAINT: Nausea and vomiting with left lower quadrant pain. HISTORY OF PRESENT ILLNESS: Ms. Carrera is a pleasant 77-year-old female, who is well known to both Dr. Hairston and I, as the patient underwent multilevel thoracic and lumbar laminectomies in June of this year. She has had a very rough postoperative course with history of abdominal abscess and now presents with GI symptoms as described above. Review of the report of her CT scan notes some acute colitis and diverticulitis and our medical team has placed the patient on Zosyn and consult for Infectious Disease. In regard to the patient's thoracic and lumbar spine, she states her incisions are itchy and she has been on Keflex as prescribed for superficial wound dehiscence and questionable wound infection. She has been working with home health wound care and they have been packing the incision with iodoform and keeping the incisions clean and dry. The patient notes no significant increase in thoracic or lumbar back pain. No significant weakness into the legs or no significant pain into the legs. She is back on 81 mg aspirin as well as steroids for her sojourn syndrome. PHYSICAL EXAMINATION: The patient is awake, alert, and appropriate. She has good strength in all 4 extremities with intact sensation to light touch throughout. Her lower thoracic and lumbar spine incisions are examined by me today. They are still iodoform packing in both the incisions especially at the most inferior aspect of both incisions. There is no significant surrounding erythema of the incisions. I should also note there is no significant odor to the incisions as they were when she was seen last week in clinic. The incisions appear as though they are slowly, but surely healing and significantly moving in the right direction as they look much improved and they are significantly less drainage from the incisions now. There is no tenderness to palpation of any of the incisions. There is wound dehiscence, but again it is improving. The most superior aspect of the incisions are healing well. IMPRESSION AND DIAGNOSES: 1. Acute colitis and diverticulitis. 2. Wound dehiscence, improving; however still on steroids for sojourn syndrome management and Zosyn antibiotic. PLAN: I have discussed the patient's case and imaging with Dr. Hairston. The patient overall from a wound aspect is improving and we do not plan to take the patient to surgery for any type of wound revision. I think that surgery would be a major undertaking for the patient. Given her multiple comorbidities and she has voiced that she does not wish to return to the operating room. Again, given the fact that the patient is afebrile, though she does have an elevated white count at 19.7, we will continue to monitor and agree with the hospitalist decision to consult Infectious Disease. We will evaluate the incisions tomorrow, but again they are moving in the right direction and the patient is in fact neurologically intact, which also works in her favor. Please call with any changes in the patient's neurologic status. Otherwise, we will follow the patient's incision and again not plan to return to the operating room unless there is a change in her incisions. Job ID: [id number]
[2018-08-29] MEDS: hydrALAZINE 25 MG TAB PO SCH ×2 (14:17→21:05)
[2018-08-29] MEDS: cloNIDine 0.3 MG TAB PO SCH ×2 (14:17→21:05)
[2018-08-29] MEDS: Promethazine HCl 25 MG/ML VIAL IM/IV PRN (14:21)
[2018-08-29] MEDS ORDERED: Metoprolol Tartrate 100 MG TAB PO SCH (15:30)
[2018-08-29] MEDS: diphenhydrAMINE 25 MG CAP PO PRN (15:49)
[2018-08-29] MEDS: hydrALAZINE 20 MG/ML VIAL SLOW IVP PRN (16:45)
--- NOTE | 2018-08-29 16:50 | CON ---
DATE OF CONSULTATION: 08/29/2018 REASON FOR CONSULTATION: Nausea, vomiting, and loose stool. HISTORY: Mrs. Carrera is a 77-year-old female with COPD, hypertension, and history of atrial fibrillation, who was doing well until one day prior to admission yesterday when she developed sudden onset of persistent nausea and vomiting. This was soon followed by frequent loose stool that was nonbloody. She did not experience any abdominal pain. Because of the intractable nausea and vomiting, she presented to the emergency room, where she was noted to have significant leukocytosis of white count of 22,000. The patient has a history of complicated diverticulitis last year when in October of 2017, she had a free peritoneal air along with left hemicolon inflammation on CT. She had a laparoscopy by Dr. Alfonso with drainage of a purulent abscess, but without any visualization of the perforation. Her cavity was thoroughly irrigated, and she was treated with percutaneous drainage and antibiotics with subsequent resolution of her diverticulitis. Plan was made for elective sigmoidectomy, but this was put off because of her thoracic and lumbar laminectomy in June of this year. This was complicated by superficial wound dehiscence in questionable wound infection. This was treated with Keflex. She did have a colonoscopy in [address] Tello, that showed sigmoid diverticulosis coli along with several polyps that were removed. Her current symptoms include mostly nausea, vomiting. The loose bowel has pretty much subsided over the last 8 hours. PAST MEDICAL HISTORY: 1. Hypertension. 2. Chronic obstructive pulmonary disease. 3. Diastolic heart failure. 4. Hyperlipidemia. 5. Sjogren syndrome. 6. Hypothyroidism. 7. History of atrial fibrillation, status post cardioversion. 8. Status post Watchman procedure and pacemaker placement. 9. Recent lumbar and thoracic laminectomy. 10. Thyroidectomy. 11. Laparoscopy and drainage of intraperitoneal abscess from diverticulitis in 10/2017. ALLERGY: Amlodipine. MEDICATIONS: Include, 1. Clonidine. 2. Hydralazine. 3. Lasix. 4. Aspirin. 5. Zestril. 6. Imdur. 7. Sotalol. 8. Rosuvastatin. 9. Lopressor. 10. Prednisone. SOCIAL HISTORY: The patient has no tobacco or alcohol usage. FAMILY HISTORY: Negative for any known GI problem, liver disease, GI malignancy. REVIEW OF SYSTEMS: A 10-point review of systems did not show any other pertinent positives or negatives. PHYSICAL EXAMINATION: VITAL SIGNS: Temperature is 97.3, blood pressure 142/85, and pulse of 111. GENERAL: She is alert, sick, but in no severe distress. HEENT: Shows anicteric sclerae. Oropharynx is moist. NECK: Supple. CARDIOVASCULAR: Shows normal S1, S2. Regular rate and rhythm. CHEST: Shows breath sounds. No wheezing. ABDOMEN: Mildly protuberant, but no distention. No tympany. She does have hypoactive bowel sounds. There is tenderness localized to left upper quadrant and left lower quadrant with some guarding, but no rebound. EXTREMITY: Shows no edema. LABORATORY DATA: WBC is 19.7 (22 yesterday), hemoglobin 11.0, and platelet count 362. Electrolytes are within normal range. Creatinine is 0.70, bilirubin 0.6, AST 99, ALT of 86, alkaline phosphatase 119, lipase of 26. IMAGING: Abdominal pelvic CT (reviewed with radiologist) showed wall mural thickening involving the transverse all the way down to the sigmoid with diverticulosis. There is a 1.5 cm anterior fluid collection with suggestion of a fistulous tract. This study was done without oral contrast. ASSESSMENT: 1. Marked tenderness on the left abdomen on exam correlating with inflammatory changes involving the left hemicolon and finding of a small fluid collection 1.5 cm anteriorly in the left lower quadrant. She did have a perforated diverticulitis back in October of last year, that required laparoscopic drainage procedure, but site of perforation was not identified. She did recover well from that admission. This small 1.5 cm fluid collection could be old or could be new, in either case, it is too small for any drainage procedure. There is no evidence of free intraperitoneal air. CT finding along with clinical symptoms suggestive of recurrent diverticulitis with small abscess. I do not think that this is ischemic colitis. 2. Nausea, vomiting, likely reactive. Small bowel does not appear distended on CT scan yesterday to suggest any obstructive process. 3. Hypertension. 4. Chronic obstructive pulmonary disease. 5. Hypothyroidism. 6. Sjogren's disease. RECOMMENDATION: 1. Conservative therapy for now, continue with IV Zosyn. 2. We will keep on clear liquids. 3. We will follow her clinical progress, the patient may need repeat CT imaging with oral contrast, if her condition does not improved or worsen over the next 48 hours. 4. We will follow. Job ID: [id number]
[2018-08-29] MEDS: Sotalol HCl 80 MG TAB PO SCH (21:06)
[2018-08-29] MEDS: Metoprolol Tartrate 100 MG TAB PO SCH (21:07)
[2018-08-29] MEDS: Acetaminophen 325 MG TAB PO PRN (21:17)
[2018-08-30] MEDS: diphenhydrAMINE 25 MG CAP PO PRN (02:54)
[2018-08-30] MEDS: Ondansetron PF 4 MG/2 ML Vial IVP PRN (04:28)
[2018-08-30] MEDS: Piperacillin/Tazobactam 3.375 GM in Sodium Chloride 0.9% 100 ML IVPB SCH ×3 (06:06→19:06)
[2018-08-30] MEDS: Thyroid 60 MG TAB PO SCH (06:06)
[2018-08-30] MEDS: hydrALAZINE 20 MG/ML VIAL SLOW IVP PRN (06:27)
[2018-08-30] MEDS: Acetaminophen 325 MG TAB PO PRN (08:41)
[2018-08-30] MEDS: predniSONE 5 MG TAB PO SCH (08:41)
[2018-08-30] MEDS: Digoxin 0.125 MG TAB PO SCH (08:41)
[2018-08-30] MEDS: cloNIDine 0.3 MG TAB PO SCH ×3 (08:50→20:30)
[2018-08-30] MEDS: Sotalol HCl 80 MG TAB PO SCH ×2 (08:51→20:31)
[2018-08-30] MEDS: Metoprolol Tartrate 100 MG TAB PO SCH ×2 (08:51→20:30)
[2018-08-30] MEDS: hydrALAZINE 25 MG TAB PO SCH ×3 (08:52→20:30)
[2018-08-30] MEDS: Promethazine HCl 25 MG/ML VIAL IM/IV PRN (08:54)
[2018-08-30 11:54] LABS: ALT (SGPT) 35 U/L (8-55); AST (SGOT) 28 U/L (5-34); Albumin 2.7 g/dL (3.4-4.8); Alkaline Phosphatase 84 U/L (40-150); Anion Gap 13 mmol/L (10-20); BUN (Urea Nitrogen) 8 mg/dL (9.8-20.1); Bilirubin, Total 0.5 mg/dL (0.2-1.2); Calc. Creatinine Clearance 58 mL/min (70-130); Calcium 8.2 mg/dL (7.8-10.44); Carbon Dioxide 23 mmol/L (23-31); Chloride 107 mmol/L (98-107); Estimated GFR-MDRD 74; Globulin 2.7 g/dL (2.4-3.5); Glucose 147 mg/dL (83-110); Protein, Total 5.4 g/dL (6.0-8.3); Sodium 140 mmol/L (136-145)
[2018-08-30 12:01] LABS: Potassium 2.7 mmol/L (3.5-5.1)
--- NOTE | 2018-08-30 12:18 | PDOC.PN ---
- Subjective Encounter Start Date: 08/30/18 Encounter Start Time: 12:16 Ms. Carrera was seen today in follow-up of Colitis and AFIB. She says she continues to feel nauseated. she she says the abdominal pain is better. - Objective Resuscitation Status - Order Detail: 08/29/18 00:35 Resuscitation Status Routine Resuscitation Status: PRTL: Chem-Intubation Discussed with: PATIENT Additional comments: PT DOES NOT WANT CPR, DEFIBRILLATION AND CARDIOVERSION IS OK MAR Reviewed: Yes Vital Signs & Weight: Vital Signs (12 hours) Temp Pulse Resp BP BP Pulse Ox 08/30/18 11:40 99.4 F 76 20 121/87 93 L 08/30/18 08:52 104 H 175/62 H 08/30/18 08:51 104 H 175/62 H 08/30/18 08:50 175/62 H 08/30/18 08:41 103 H 08/30/18 08:00 100.2 F H 81 22 H 176/68 H 92 L 08/30/18 06:27 80 199/87 H 08/30/18 04:15 98.6 F 80 20 158/70 H 94 L Weight Admit Weight 131 lb 1.6 oz Weight 131 lb 1.6 oz I&O: 08/29/18 08/30/18 08/31/18 06:59 06:59 06:59 Intake Total 435 Output Total 320 Balance 115 Result Diagrams: 08/29/18 05:01 08/30/18 11:13 Phys Exam - Physical Examination HEENT: PERRLA Respiratory: no wheezing, no rales, no rhonchi, clear to auscultation bilateral Cardiovascular: irregular 2/6 systolic murmur Gastrointestinal: soft, positive bowel sounds + diffuse tenderness, no rebound or guarding Musculoskeletal: pulses present, edema present Neurological: non-focal Dx/Plan (1) Acute colitis Code(s): K52.9 - NONINFECTIVE GASTROENTERITIS AND COLITIS, UNSPECIFIED Status : Acute (2) Atrial fibrillation Code(s): I48.91 - UNSPECIFIED ATRIAL FIBRILLATION Status: Chronic (3) Hypokalemia Code(s): E87.6 - HYPOKALEMIA Status: Acute Comment: Resolved (4) COPD (chronic obstructive pulmonary disease) Status: Chronic (5) Hypertension Code(s): I10 - ESSENTIAL (PRIMARY) HYPERTENSION Status: Chronic Qualifiers: Hypertension type: essential hypertension Qualified Code(s): I10 - Essential (primary) hypertension Comment: Labile secondary to abd pain and inconsistent po intake of antihypertensives, resume home BP regimen, serial monitoring, Hydralazine IV prn - Plan * Acute Colitis- continue Zosyn- she is still having some nausea, and not quit ready to advance diet * AFIB- her heart rate is now controlled, and will discontinue the Cardizem drip * HTN- blood pressure is a bit elevated- but she has just been re-started on her home medications * COPD- stable * Hypokalemia- replace
[2018-08-30 12:22] LABS: Band 2 % (5-11); Hemoglobin 9.6 g/dL (12.0-16.0); Hypochromia SLIGHT = 6-15 cells (100X) (0-5/hpf); Lymphocytes 17 % (21-51); MDiff Complete? YES; Mean Corpuscular HGB CONC 31.6 g/dL (32.0-36.0); Mean Corpuscular Hemoglobin 27.4 pg (27.0-31.0); Mean Corpuscular Volume 86.7 fL (78.0-98.0); Mean Platelet Volume 7.5 fL (7.4-10.4); Monocytes 3 % (0-10); Neutrophil 77 % (42-75); Platelet Count 267 thou/uL (130-400); Polychromasia SLIGHT = 2-3 cells (100X) (0-2/hpf); RBC Distribution Width 16.9 % (11.5-14.5); White Blood Cell (WBC) Count 16.5 thou/uL (4.8-10.8)
[2018-08-30] MEDS ORDERED: Metoprolol Tartrate 5 MG/5 ML VIAL IVP PRN (12:24)
[2018-08-30] MEDS ORDERED: Potassium Chloride 40 MEQ in Sodium Chloride 0.9% 500 ML IVPB SCH (12:45)
--- NOTE | 2018-08-30 12:45 | PRG ---
DATE OF SERVICE: 08/30/2018 Ms. Carrera was admitted to the hospital for diverticulitis worsening and concern of recurrence of her pericolonic abscess and acute colitis. She is at extremely high risk for poor wound healing, infection, and really many other complications. She has been on high-dose steroids chronically. She has a history of thoracic myelopathy and lumbar radiculopathy that demonstrated improvement following decompression. Unfortunately, she had dehiscence of both wounds that over the last few weeks have demonstrated secondary intention methods of healing with help with home health and iodoform packing. Her wounds continue to demonstrate healing and will simply just need to heal with secondary intention. I do not think it is playing any role obviously in her current hospitalization as we have been following her slow healing wounds for weeks now. Neurologically, she has been at her baseline and has been walking when at home, which is an improvement compared to before. She has leg pain that appears to be chronic, but is likely inflammatory in nature rather than compressive. The CT scan of the abdomen and pelvis shows small locules of subcutaneous emphysema in the areas of the healing wound, not surprising, but no obvious fluid collections to suggest abscess in the spine. We will follow along peripherally during her hospitalization. Job ID: [id number]
--- NOTE | 2018-08-30 17:31 | PRG ---
DATE OF SERVICE: 08/30/2018 SUBJECTIVE: Ms. Whitney is doing okay. She feels better when she came in. She states that she is pretty sleepy. She is not vomiting. OBJECTIVE: VITAL SIGNS: T-max 100.2, T current 98.9, pulse 77, blood pressure 152/57. ABDOMEN: Tender on the left side of the left abdomen. LABORATORY DATA: White count of 22,000 on admission. On 08/07 when she was here, it was 9.3 and 16.5 today. Hemoglobin is 9.6, platelet count is 267. Electrolytes are normal for a potassium of 2.7, sodium of 142, BUN and creatinine are 8 and 0.76. Liver function tests are normal. Albumin is 2.7. ASSESSMENT: 1. Recurrent diverticulitis. CAT scan shows thickening of the entire colon suggestive of colitis. We should try to check the stool for C. diff, but she states she is not having any diarrhea. 2. She may need to be on stress dose steroids if she has any issues with tachycardia or low blood pressure. Those will need to be added into her regimen. She probably should at least maintenance steroids from home. 3. Would involve General Surgery during the case, they were involved in last admission. Job ID: [id number]
--- NOTE | 2018-08-30 23:58 | CON ---
DATE OF CONSULTATION: 08/30/2018 CHIEF COMPLAINT: Abdominal pain, diverticulitis, and intraabdominal abscess. HISTORY OF PRESENT ILLNESS: Ms. Carrera is a 77-year-old white female, well known to myself. She had a lengthy hospitalization in October of 2017 for diverticulitis with perforation. I had performed a laparoscopic washout and she eventually recovered and was discharged. She had multiple prior episodes of diverticulitis requiring medication and hospitalization. At that time, it was decided that she would likely benefit from surgery to resect her diseased colon. Unfortunately, she never arrived at the level of stability that she was felt to be appropriate to proceed with what was essentially elective surgery. She returned to the hospital in December with a GI bleed of uncertain etiology. It was suspected to be related to her diverticular disease. Her hemoglobin stabilized at 7 and she did not require transfusion. She was subsequently admitted to the hospital in March for heart related issues. During the hospitalization, she had a cardiac catheterization and a pacemaker placement. In June, she had progressive problems with pain related to her back. She was admitted to the hospital and underwent back surgery per Dr. Hairston. It was during the hospitalization that she developed some constipation and had recurrent issues with her diverticular disease resulting in a diverticular abscess that was drained percutaneously. Her surgery was on July 03 of this year and the abscess drainage was on July 12. She seemed to recover appropriately from that procedure and was discharged home. She returns at this time, again complaining of severe abdominal pain. She had marked leukocytosis of 22 when she was admitted on August 28. This is dropped down to 16.5 today. Her hemoglobin was 11.6 on the day of admission and 9.[address] scan showed evidence of severe colitis involving her entire transverse colon and descending colon. She had extensive diverticular disease with some diverticulitis in the left colon and sigmoid colon and she appeared to have a relatively small recurrent abscess in the same location in the anterior left lower quadrant. This is only 2.3 x 3.2 cm and would be difficult to drain percutaneously. Additionally, it is noted that her two back incisions from her surgery in June have both opened as she has extensive wound healing problems related almost certainly to her long-term steroid use (which she is dependent on for her Sjogren's disease). She was started on intravenous antibiotics and continues to receive Zosyn. She tells me that she feels significantly better than she did when she came in. She notes that she feels extremely weak and does not believe that she could tolerate any significant abdominal surgery. She notes today that she has not had a bowel movement in the last couple of days. PAST MEDICAL HISTORY: 1. Constipation. 2. Diverticular disease with multiple episodes of diverticulitis with at least two episodes of diverticular perforation (in October and her current episode). 3. Sjogren syndrome. 4. Atrial fibrillation. 5. Chronic diastolic heart dysfunction. 6. Hypertension. 7. Hypothyroidism. 8. History of [place]'s crisis. 9. Gastroesophageal reflux disease. PAST SURGICAL HISTORY: 1. Thyroidectomy. 2. Hysterectomy. 3. Appendectomy. 4. Cataract surgery. 5. Cholecystectomy. 6. Ablation procedure for atrial fibrillation. 7. Watchman procedure. 8. Back surgery with kyphoplasty. 9. Laparoscopic washout of perforated diverticulitis in October 2017. 10. Pacemaker placement in March 2018. 11. Multilevel back surgery per Dr. Hairston in June 2018. ALLERGIES: TO AMLODIPINE, MORPHINE, MESALAMINE, AND GABAPENTIN. CURRENT MEDICATIONS: Numerous and continue to include prednisone. PERSONAL AND SOCIAL HISTORY: She is . She has one son, who is not present at the time of visit. She apparently lives with a male friend, who helps with her daily activities. She denies tobacco or alcohol use. REVIEW OF SYSTEMS: Ten system review was otherwise unremarkable. She states that she is able to ambulate at her house with a walker, but notes that it is progressively difficult for her because of her weakness. PHYSICAL EXAMINATION: VITAL SIGNS: She is afebrile currently. Her maximum temperature during this hospitalization has been 100.2, pulse is 77, and blood pressure 158/57. GENERAL: She is a well-developed, well-nourished, pleasant female, resting in bed. She looks chronically ill. HEAD, EYES, EARS, NOSE, THROAT: Unremarkable. NECK: Supple. LUNGS: Clear to auscultation. CARDIAC: Regular rate and rhythm. ABDOMEN: Nondistended. Bowel sounds are present, but hypoactive. She is nontender on the right side of her abdomen. She has significant tenderness to palpation on the left side of her abdomen, with moderate tenderness in the left upper quadrant and severe tenderness to palpation in the left lower quadrant. EXTREMITIES: Unremarkable. LABORATORY DATA: Labs are as mentioned above. Her chemistry profile reveals hypokalemia and her albumin today is low at 2.7. ASSESSMENT: Patient with recurrent/persistent diverticulitis with a small diverticular abscess. She has new findings of extensive colitis in her transverse colon that was not present on prior CT scans. It remains difficult to discern what the right thing surgically to do for her is. She had wound healing problems from her recent back surgery. I would be very concerned that she would have similar problems with abdominal surgery. She clearly has ongoing problems with her diverticular disease and would typically benefit from the surgery, the question is how well she would tolerate it. For now, I agree with continuing her intravenous antibiotics and allowing her to take a diet as she tolerates. She will likely require hospitalization of significant length. The CT scan at some point in the near future would be appropriate to check for resolution of the colitis and/or the abscess. I will check on her again in a few days. Dr. Fish will be available if there are any surgical emergencies over the weekend. Job ID: [id number] [facility]
[2018-08-31] MEDS: Piperacillin/Tazobactam 3.375 GM in Sodium Chloride 0.9% 100 ML IVPB SCH ×5 (00:37→23:27)
[2018-08-31 05:59] LABS: #Eosinphils 0.2 thou/uL (0.0-0.7); #Lymphocytes 3.1 thou/uL (1.20-3.40); #Monocytes 0.7 thou/uL (0.11-0.59); #Neutrophils 8.4 thou/uL (1.40-6.50); %Basophils 0.3 % (0.0-1.0); %Eosinophils 1.6 % (0.0-10.0); %Lymphocytes 24.8 % (21.0-51.0); %Monocytes 5.9 % (0.0-10.0); %Neutrophils 67.4 % (42.0-75.0); Hemoglobin 8.6 g/dL (12.0-16.0); Mean Corpuscular HGB CONC 31.2 g/dL (32.0-36.0); Mean Corpuscular Hemoglobin 27.3 pg (27.0-31.0); Mean Corpuscular Volume 87.4 fL (78.0-98.0); Mean Platelet Volume 7.2 fL (7.4-10.4); Platelet Count 216 thou/uL (130-400); RBC Distribution Width 16.7 % (11.5-14.5); Red Blood Cell (RBC) Count 3.15 mill/uL (4.20-5.40); White Blood Cell (WBC) Count 12.4 thou/uL (4.8-10.8)
[2018-08-31 06:08] LABS: Anion Gap 10 mmol/L (10-20); BUN (Urea Nitrogen) 9 mg/dL (9.8-20.1); Calc. Creatinine Clearance 64 mL/min (70-130); Calcium 7.7 mg/dL (7.8-10.44); Carbon Dioxide 22 mmol/L (23-31); Chloride 109 mmol/L (98-107); Estimated GFR-MDRD 82; Glucose 130 mg/dL (83-110); Sodium 138 mmol/L (136-145)
[2018-08-31 06:13] LABS: Potassium 2.7 mmol/L (3.5-5.1)
[2018-08-31] MEDS: Sodium Chloride 0.9% 1,000 ML IV SCH (06:30)
[2018-08-31] MEDS: Thyroid 60 MG TAB PO SCH (06:30)
[2018-08-31] MEDS ORDERED: Potassium Chloride 20 MEQ TAB PO SCH (07:00)
[2018-08-31] MEDS: Potassium Chloride 20 MEQ in Premix Bag 1 BAG IVPB SCH ×2 (08:41→12:57)
[2018-08-31] MEDS: Digoxin 0.125 MG TAB PO SCH (08:42)
[2018-08-31] MEDS: cloNIDine 0.3 MG TAB PO SCH ×3 (08:42→21:24)
[2018-08-31] MEDS: hydrALAZINE 25 MG TAB PO SCH ×3 (08:42→21:19)
[2018-08-31] MEDS: predniSONE 5 MG TAB PO SCH (08:43)
[2018-08-31] MEDS: Metoprolol Tartrate 100 MG TAB PO SCH ×2 (08:43→21:19)
[2018-08-31] MEDS: Sotalol HCl 80 MG TAB PO SCH ×2 (08:43→21:21)
--- NOTE | 2018-08-31 12:42 | PDOC.PN ---
- Subjective Encounter Start Date: 08/31/18 Encounter Start Time: 12:40 Ms. Carrera was seen today in follow-up of acute diverticulitis, and small diverticular abscess. She says she is beginning to feel better. She has less pain, and the nausea has improved as well. - Objective Resuscitation Status - Order Detail: 08/29/18 00:35 Resuscitation Status Routine Resuscitation Status: PRTL: Chem-Intubation Discussed with: PATIENT Additional comments: PT DOES NOT WANT CPR, DEFIBRILLATION AND CARDIOVERSION IS OK MAR Reviewed: Yes Vital Signs & Weight: Vital Signs (12 hours) Temp Pulse Resp BP BP Pulse Ox 08/31/18 11:57 99 F 76 18 179/68 H 94 L 08/31/18 08:42 80 08/31/18 08:35 98.5 F 75 16 189/74 H 95 08/31/18 04:00 98.5 F 82 18 148/64 H 93 L Weight Admit Weight 131 lb 1.6 oz Weight 131 lb 1.6 oz I&O: 08/30/18 08/31/18 09/01/18 06:59 06:59 06:59 Intake Total 2371 Output Total 450 Balance 1921 Result Diagrams: 08/31/18 05:46 08/31/18 05:46 Phys Exam - Physical Examination HEENT: PERRLA Respiratory: no wheezing, no rales, no rhonchi Cardiovascular: RRR, no significant murmur, no rub Gastrointestinal: soft + left upper quandrant tenderness no rebound or guarding Musculoskeletal: no edema Dx/Plan (1) Colonic diverticular abscess Code(s): K57.20 - DVTRCLI OF LG INT W PERFORATION AND ABSCESS W/O BLEEDING Status: Acute (2) Diverticulitis Code(s): K57.92 - DVTRCLI OF INTEST, PART UNSP, W/O PERF OR ABSCESS W/O BLEED Status: Acute (3) Atrial fibrillation Code(s): I48.91 - UNSPECIFIED ATRIAL FIBRILLATION Status: Chronic (4) Hypokalemia Code(s): E87.6 - HYPOKALEMIA Status: Acute Comment: Resolved (5) COPD (chronic obstructive pulmonary disease) Status: Chronic (6) Hypertension Code(s): I10 - ESSENTIAL (PRIMARY) HYPERTENSION Status: Chronic Qualifiers: Hypertension type: essential hypertension Qualified Code(s): I10 - Essential (primary) hypertension Comment: Labile secondary to abd pain and inconsistent po intake of antihypertensives, resume home BP regimen, serial monitoring, Hydralazine IV prn (7) Hypomagnesemia Code(s): E83.42 - HYPOMAGNESEMIA Status: Resolved Comment: Continue Mg++ 128mg BID - Plan * Diverticular Abscess and Diverticulitis- continue Zosyn * Continue clear liquid diet, and will add Ensure Clear, and Nutritional Supplement protocol * AFIB- her heart rate is stable * Hypokalmeia and Hypomagnesemia- continue to replace * HTN- blood pressure continues to be elevated- will re-start Imdur, but will continue to hold Lisinopril.
[2018-08-31] MEDS ORDERED: Magnesium 2 GM/50 ML 2 GM in Premix Bag 1 BAG IVPB SCH (12:45)
[2018-08-31] MEDS: Isosorbide Mononitrate 20 MG TAB PO SCH (21:40)
[2018-08-31] MEDS: diphenhydrAMINE 25 MG CAP PO PRN (21:41)
[2018-09-01] MEDS: Sodium Chloride 0.9% 1,000 ML IV SCH ×2 (02:51→22:15)
--- NOTE | 2018-09-01 04:39 | PDOC.EVN ---
Event Note - Event Note Event Note: RN called - Patient had generalized itching after Zosyn. Will change to Meropenem.
[2018-09-01] MEDS: MEROPENEM 1 GM/50 ML 1 GM in Premix Bag 1 BAG IVPB SCH ×3 (05:17→22:15)
[2018-09-01] MEDS: Thyroid 60 MG TAB PO SCH (05:23)
[2018-09-01 08:04] LABS: Anion Gap 10 mmol/L (10-20); BUN (Urea Nitrogen) 6 mg/dL (9.8-20.1); Calc. Creatinine Clearance 71 mL/min (70-130); Calcium 7.7 mg/dL (7.8-10.44); Carbon Dioxide 21 mmol/L (23-31); Chloride 109 mmol/L (98-107); Estimated GFR-MDRD Greater than 90; Glucose 108 mg/dL (83-110); Magnesium 1.5 mg/dL (1.6-2.6); Potassium 3.3 mmol/L (3.5-5.1); Sodium 137 mmol/L (136-145)
[2018-09-01] MEDS: cloNIDine 0.3 MG TAB PO SCH ×3 (09:15→22:09)
[2018-09-01] MEDS: Digoxin 0.125 MG TAB PO SCH (09:15)
[2018-09-01] MEDS: predniSONE 5 MG TAB PO SCH (09:15)
[2018-09-01] MEDS: Metoprolol Tartrate 100 MG TAB PO SCH ×2 (09:15→22:14)
[2018-09-01] MEDS: hydrALAZINE 25 MG TAB PO SCH ×3 (09:16→22:13)
[2018-09-01] MEDS: Sotalol HCl 80 MG TAB PO SCH ×2 (09:16→22:14)
[2018-09-01] MEDS: Isosorbide Mononitrate 20 MG TAB PO SCH ×2 (09:16→22:14)
--- NOTE | 2018-09-01 13:16 | PRG ---
DATE OF SERVICE: 09/01/2018 SUBJECTIVE: Ms. Arabella Carrera is a 77-year-old female hospitalized because of abdominal pain and findings of diverticulitis. The patient has had recurrent diverticulitis over the years. The patient was seen by Dr. Gary Alfonso in consultation. She was given IV antibiotics. Started on clear liquid diet and advanced to a full liquid diet yesterday. She is actually feeling a whole lot better. She wants actually to go home. Her abdominal pain is markedly improved. There is no nausea or vomiting. She is passing large amount of gas. PHYSICAL EXAMINATION: GENERAL: Appears comfortable. VITAL SIGNS: Afebrile, pulse is 77, blood pressure 164/59. CARDIOVASCULAR SYSTEM: First and second heart sounds heard. LUNGS: Clear to auscultation. ABDOMEN: Nondistended. Abdomen is very soft. Abdomen is mildly tender over the left lower quadrant. There is no rebound or guarding. Her bowel sounds are hyperactive. CLINICAL IMPRESSION: 1. Recurrent diverticulitis, seems to be improving. She is tolerating full liquid diet. She is actually anxious to go home. 2. Hypokalemia, corrected and today, potassium came back to 3.3. Otherwise, her lytes are normal. BUN is 6. RECOMMENDATION: Advance diet to regular diet. If she does well without any abdominal pain, nausea, or vomiting, may consider discharge home on p.o. antibiotics tomorrow. Job ID: [id number]
--- NOTE | 2018-09-01 15:04 | PDOC.PN ---
- Subjective Encounter Start Date: 09/01/18 Encounter Start Time: 11:00 Ms. Carrera was seen today in follow-up of Diverticular Disease. She says she is feeling better today. She says the abdominal pain has improved, as well as the nausea. Her appetite has improved as well. - Objective Resuscitation Status - Order Detail: 08/29/18 00:35 Resuscitation Status Routine Resuscitation Status: PRTL: Chem-Intubation Discussed with: PATIENT Additional comments: PT DOES NOT WANT CPR, DEFIBRILLATION AND CARDIOVERSION IS OK MAR Reviewed: Yes Vital Signs & Weight: Vital Signs (12 hours) Temp Pulse Resp BP BP Pulse Ox 09/01/18 11:40 97.4 F L 77 20 164/59 H 93 L 09/01/18 09:16 77 09/01/18 09:15 77 206/86 H 09/01/18 09:00 97.8 F 78 18 169/86 H 92 L 09/01/18 04:00 98.1 F 77 17 132/61 92 L Weight Admit Weight 131 lb 1.6 oz Weight 131 lb 1.6 oz I&O: 08/31/18 09/01/18 09/02/18 06:59 06:59 06:59 Intake Total 2371 2072 Output Total 450 650 Balance 1921 1422 Result Diagrams: 08/31/18 05:46 09/01/18 07:30 Phys Exam - Physical Examination HEENT: PERRLA Respiratory: no wheezing, no rales, no rhonchi, clear to auscultation bilateral Cardiovascular: RRR, no significant murmur, no rub Gastrointestinal: soft, positive bowel sounds + mild left sided abdominal tenderness, no rebound or guarding Musculoskeletal: pulses present, edema present trace pedal edema Dx/Plan (1) Colonic diverticular abscess Code(s): K57.20 - DVTRCLI OF LG INT W PERFORATION AND ABSCESS W/O BLEEDING Status: Acute (2) Diverticulitis Code(s): K57.92 - DVTRCLI OF INTEST, PART UNSP, W/O PERF OR ABSCESS W/O BLEED Status: Acute (3) Atrial fibrillation Code(s): I48.91 - UNSPECIFIED ATRIAL FIBRILLATION Status: Chronic (4) Hypokalemia Code(s): E87.6 - HYPOKALEMIA Status: Acute Comment: Resolved (5) COPD (chronic obstructive pulmonary disease) Status: Chronic (6) Hypertension Code(s): I10 - ESSENTIAL (PRIMARY) HYPERTENSION Status: Chronic Qualifiers: Hypertension type: essential hypertension Qualified Code(s): I10 - Essential (primary) hypertension Comment: Labile secondary to abd pain and inconsistent po intake of antihypertensives, resume home BP regimen, serial monitoring, Hydralazine IV prn (7) Hypomagnesemia Code(s): E83.42 - HYPOMAGNESEMIA Status: Resolved Comment: Continue Mg++ 128mg BID - Plan * Diverticular Abscess, and colitis- continue Cefepime * AFIB- her heart rate has been stable * Hypomagnesemia, and Hypokalemia- continue to replace * COPD- stable. * HTN- blood pressure is a bit elevated- will continue to hold Lisiopril, however, and for elevated blood pressure use PRN medications
[2018-09-01] MEDS ORDERED: Potassium Chloride 20 MEQ in Premix Bag 1 BAG IVPB SCH (16:00)
[2018-09-01] MEDS ORDERED: Magnesium 2 GM/50 ML 2 GM in Premix Bag 1 BAG IVPB SCH (16:00)
[2018-09-01] MEDS: diphenhydrAMINE 25 MG CAP PO PRN (22:26)
[2018-09-01] MEDS ORDERED: Potassium Chloride 20 MEQ TAB PO SCH (22:45)
[2018-09-02] MEDS: hydrALAZINE 20 MG/ML VIAL SLOW IVP PRN (03:54)
[2018-09-02] MEDS: MEROPENEM 1 GM/50 ML 1 GM in Premix Bag 1 BAG IVPB SCH ×3 (05:00→22:21)
[2018-09-02] MEDS: Thyroid 60 MG TAB PO SCH (05:48)
[2018-09-02] MEDS: Sotalol HCl 80 MG TAB PO SCH ×2 (09:18→22:19)
[2018-09-02] MEDS: Metoprolol Tartrate 100 MG TAB PO SCH ×2 (09:19→22:18)
[2018-09-02] MEDS: Isosorbide Mononitrate 20 MG TAB PO SCH ×2 (09:20→22:18)
[2018-09-02] MEDS: Digoxin 0.125 MG TAB PO SCH (09:20)
[2018-09-02] MEDS: traMADol HCl 50 MG TAB PO PRN ×3 (09:22→22:20)
[2018-09-02] MEDS: hydrALAZINE 25 MG TAB PO SCH ×3 (09:23→22:18)
[2018-09-02] MEDS: predniSONE 5 MG TAB PO SCH (09:23)
[2018-09-02] MEDS: cloNIDine 0.3 MG TAB PO SCH ×3 (09:23→22:18)
[2018-09-02 10:28] LABS: Anion Gap 9 mmol/L (10-20); BUN (Urea Nitrogen) 5 mg/dL (9.8-20.1); Calc. Creatinine Clearance 74 mL/min (70-130); Calcium 8.4 mg/dL (7.8-10.44); Carbon Dioxide 24 mmol/L (23-31); Chloride 105 mmol/L (98-107); Estimated GFR-MDRD Greater than 90; Glucose 112 mg/dL (83-110); Potassium 3.6 mmol/L (3.5-5.1); Sodium 134 mmol/L (136-145)
--- NOTE | 2018-09-02 12:31 | PRG ---
DATE OF SERVICE: 09/02/2018 SUBJECTIVE: This is a 77-year-old female with recurrent diverticulitis and abdominal pain. She is on IV antibiotics and also liquid diet. She is actually doing much better. Her abdominal pain is markedly improved. She has no nausea or vomiting. She is passing flatus. She has tolerated full liquid diet without any worsening symptoms. She has no complaints. OBJECTIVE: GENERAL: She appears comfortable. VITAL SIGNS: Stable. Afebrile. Pulse is 74 and blood pressure 178/77. CARDIOVASCULAR: within normal limits. LUNGS: Within normal limits. ABDOMEN: Soft. Abdomen is nondistended. Mildly tender on deep palpation over the left lower quadrant. Overall, the exam is very benign. RECOMMENDATIONS: 1. Advance diet to a heart-healthy diet. 2. If she does well, may consider discharge in the next 24 to 48 hours. Job ID: [id number]
--- NOTE | 2018-09-02 13:05 | PDOC.PN ---
- Subjective Encounter Start Date: 09/02/18 Encounter Start Time: 13:03 Ms. Carrera was seen today in follow-up of Diverticular Disease. She feels better , and is having less abdominal pain. - Objective Resuscitation Status - Order Detail: 08/29/18 00:35 Resuscitation Status Routine Resuscitation Status: PRTL: Chem-Intubation Discussed with: PATIENT Additional comments: PT DOES NOT WANT CPR, DEFIBRILLATION AND CARDIOVERSION IS OK MAR Reviewed: Yes Vital Signs & Weight: Vital Signs (12 hours) Temp Pulse Resp BP BP BP Pulse Ox 09/02/18 09:23 74 178/77 H 09/02/18 09:20 74 09/02/18 09:18 74 09/02/18 07:30 98.4 F 74 20 178/77 H 95 09/02/18 03:54 77 197/81 H 09/02/18 03:40 98.4 F 77 16 197/81 H 95 Weight Admit Weight 131 lb 1.6 oz Weight 131 lb 1.6 oz I&O: 09/01/18 09/02/18 09/03/18 06:59 06:59 06:59 Intake Total 2072 220 Output Total 650 1950 Balance 1422 -1730 Result Diagrams: 08/31/18 05:46 09/02/18 09:53 Phys Exam - Physical Examination HEENT: PERRLA Respiratory: no wheezing, no rales, no rhonchi, clear to auscultation bilateral Cardiovascular: RRR, no significant murmur, no rub Gastrointestinal: soft, non-tender, no distention, positive bowel sounds Musculoskeletal: no edema, pulses present Dx/Plan (1) Colonic diverticular abscess Code(s): K57.20 - DVTRCLI OF LG INT W PERFORATION AND ABSCESS W/O BLEEDING Status: Acute (2) Diverticulitis Code(s): K57.92 - DVTRCLI OF INTEST, PART UNSP, W/O PERF OR ABSCESS W/O BLEED Status: Acute (3) Atrial fibrillation Code(s): I48.91 - UNSPECIFIED ATRIAL FIBRILLATION Status: Chronic (4) Hypokalemia Code(s): E87.6 - HYPOKALEMIA Status: Acute Comment: Resolved (5) COPD (chronic obstructive pulmonary disease) Status: Chronic (6) Hypertension Code(s): I10 - ESSENTIAL (PRIMARY) HYPERTENSION Status: Chronic Qualifiers: Hypertension type: essential hypertension Qualified Code(s): I10 - Essential (primary) hypertension Comment: Labile secondary to abd pain and inconsistent po intake of antihypertensives, resume home BP regimen, serial monitoring, Hydralazine IV prn (7) Hypomagnesemia Code(s): E83.42 - HYPOMAGNESEMIA Status: Resolved Comment: Continue Mg++ 128mg BID - Plan * Diverticulitis and diverticular abscess- improved * Stable for discharge home- on Cipro and flagyl * Close outpatient follow-up..
[2018-09-02 14:36] LABS: #Eosinphils 0.1 thou/uL (0.0-0.7); #Lymphocytes 1.7 thou/uL (1.20-3.40); #Monocytes 0.2 thou/uL (0.11-0.59); #Neutrophils 6.5 thou/uL (1.40-6.50); %Basophils 0.2 % (0.0-1.0); %Lymphocytes 19.6 % (21.0-51.0); %Monocytes 2.6 % (0.0-10.0); %Neutrophils 76.7 % (42.0-75.0); Hemoglobin 9.5 g/dL (12.0-16.0); Mean Corpuscular Volume 84.3 fL (78.0-98.0); Mean Platelet Volume 7.8 fL (7.4-10.4); Platelet Count 255 thou/uL (130-400); RBC Distribution Width 16.9 % (11.5-14.5); Red Blood Cell (RBC) Count 3.51 mill/uL (4.20-5.40); White Blood Cell (WBC) Count 8.5 thou/uL (4.8-10.8)
[2018-09-02] MEDS: Sodium Chloride 0.9% 1,000 ML IV SCH (17:02)
[2018-09-02] MEDS: diphenhydrAMINE 25 MG CAP PO PRN (22:19)
[2018-09-03] MEDS: hydrALAZINE 20 MG/ML VIAL SLOW IVP PRN (05:11)
[2018-09-03] MEDS: MEROPENEM 1 GM/50 ML 1 GM in Premix Bag 1 BAG IVPB SCH (05:19)
[2018-09-03] MEDS: Thyroid 60 MG TAB PO SCH (05:21)
[2018-09-03] MEDS: Isosorbide Mononitrate 20 MG TAB PO SCH (08:40)
[2018-09-03] MEDS: Digoxin 0.125 MG TAB PO SCH (08:40)
[2018-09-03] MEDS: Sotalol HCl 80 MG TAB PO SCH (08:41)
[2018-09-03] MEDS: Metoprolol Tartrate 100 MG TAB PO SCH (08:41)
[2018-09-03] MEDS: cloNIDine 0.3 MG TAB PO SCH (08:42)
[2018-09-03] MEDS: hydrALAZINE 25 MG TAB PO SCH (08:43)
[2018-09-03] MEDS: predniSONE 5 MG TAB PO SCH (08:43)
[2018-09-03 10:30] LABS: ALT (SGPT) 43 U/L (8-55); AST (SGOT) 70 U/L (5-34); Albumin 2.7 g/dL (3.4-4.8); Alkaline Phosphatase 76 U/L (40-150); Anion Gap 11 mmol/L (10-20); BUN (Urea Nitrogen) 5 mg/dL (9.8-20.1); Bilirubin, Total 0.4 mg/dL (0.2-1.2); Calc. Creatinine Clearance 73 mL/min (70-130); Calcium 8.7 mg/dL (7.8-10.44); Carbon Dioxide 24 mmol/L (23-31); Chloride 102 mmol/L (98-107); Estimated GFR-MDRD Greater than 90; Globulin 2.9 g/dL (2.4-3.5); Glucose 110 mg/dL (83-110); Magnesium 1.4 mg/dL (1.6-2.6); Potassium 3.6 mmol/L (3.5-5.1); Protein, Total 5.6 g/dL (6.0-8.3); Sodium 133 mmol/L (136-145)
--- NOTE | 2018-09-03 10:45 | PDOC.PN ---
- Subjective Encounter Start Date: 09/03/18 Encounter Start Time: 10:44 Ms. Carrera was seen today in follow-up of Diverticulitis. She says she feels much better. She has tolerated a solid diet. - Objective Resuscitation Status - Order Detail: 08/29/18 00:35 Resuscitation Status Routine Resuscitation Status: PRTL: Chem-Intubation Discussed with: PATIENT Additional comments: PT DOES NOT WANT CPR, DEFIBRILLATION AND CARDIOVERSION IS OK MAR Reviewed: Yes Vital Signs & Weight: Vital Signs (12 hours) Temp Pulse Resp BP BP Pulse Ox 09/03/18 07:43 98.5 F 75 24 H 151/68 H 94 L 09/03/18 05:11 75 197/81 H 09/03/18 04:00 98.2 F 75 18 95 Weight Admit Weight 131 lb 1.6 oz Weight 131 lb 1.6 oz I&O: 09/02/18 09/03/18 09/04/18 06:59 06:59 06:59 Intake Total 220 1475 Output Total 1950 2650 Balance -1730 -1175 Result Diagrams: 09/02/18 13:57 09/03/18 09:41 Phys Exam - Physical Examination HEENT: PERRLA Respiratory: no wheezing, no rales, no rhonchi, clear to auscultation bilateral Cardiovascular: RRR, no significant murmur, no rub Gastrointestinal: soft, non-tender, no distention, positive bowel sounds Musculoskeletal: no edema, pulses present Dx/Plan (1) Colonic diverticular abscess Code(s): K57.20 - DVTRCLI OF LG INT W PERFORATION AND ABSCESS W/O BLEEDING Status: Acute (2) Diverticulitis Code(s): K57.92 - DVTRCLI OF INTEST, PART UNSP, W/O PERF OR ABSCESS W/O BLEED Status: Acute (3) Atrial fibrillation Code(s): I48.91 - UNSPECIFIED ATRIAL FIBRILLATION Status: Chronic (4) Hypokalemia Code(s): E87.6 - HYPOKALEMIA Status: Acute Comment: Resolved (5) COPD (chronic obstructive pulmonary disease) Status: Chronic (6) Hypertension Code(s): I10 - ESSENTIAL (PRIMARY) HYPERTENSION Status: Chronic Qualifiers: Hypertension type: essential hypertension Qualified Code(s): I10 - Essential (primary) hypertension Comment: Labile secondary to abd pain and inconsistent po intake of antihypertensives, resume home BP regimen, serial monitoring, Hydralazine IV prn (7) Hypomagnesemia Code(s): E83.42 - HYPOMAGNESEMIA Status: Resolved Comment: Continue Mg++ 128mg BID - Plan * Diverticular Disease- improved * She is clinically stable for discharge .
--- NOTE | 2018-09-03 11:07 | PQF ---
DATE: 09-03-18 ATTN: DR. GABRIEL CORADO Please exercise your independent, professional judgment in responding to the clarification form. Clinical indicators are provided on the bottom of this form for your review Please check appropriate box(s) to clarify if the following diagnosis has been ruled in or ruled out: SEPSIS [ X ] Ruled in diagnosis [ ] Continue to treat [ ] Resolved [ ] Ruled out diagnosis [ ] Other diagnosis [ ] Unable to determine In addition, please specify: Present on Admission (POA): [ X ] Yes [ ] No [ ] Unable to determine For continuity of documentation, please document condition throughout progress notes and discharge summary. Thank You. CLINICAL INDICATORS - SIGNS / SYMPTOMS / LABS ER DX: COLITIS, INTRAABDOMINAL ABSCESS H&P 08-29-18: LEUKOCYTOSIS. WILL CONTINUE ON BROAD SPECTRUM ANTIBIOTICS AND SURGERY HAS BEEN CONSULTED PN DR. POLO 08-29-17: ACUTE SEPSIS, ABD PAIN, COLITIS WBC: 08-28-18: 22.0 08-29-18: 19.7 08-30-18: 16.5 08-31-18: 12.[address] CORADO 09-03-18: COLONIC DIVERTICULAR ABSCESS, DIVERTICULITIS RISK FACTORS: PN DR. CORADO 09-03-18: COLONIC DIVERTICULAR ABSCESS, DIVERTICULITIS ER HX: HTN, HYPERLIPIDEMIA, SJGREN SYNDROME, COPD, IL, FIBROMYALGIA , PERFORATED COLON TREATMENTS: ER: VANCOMYCIN IV, ZOSYN IV MAR: 08-29-18: IVF NS, MEROPENEM IV (This form is maintained as a part of the permanent medical record) 2014 [employer], [employer]. All Rights Reserved [email or web address] Office: [phone] [facility] CENT[facility]
[2018-09-03 11:35] VITALS: BP 153/69; TEMP 97.9
[2018-09-03] MEDS: Sodium Chloride 0.9% 1,000 ML IV SCH (11:35)
[2018-09-03] MEDS ORDERED: MEROPENEM 1 GM/50 ML 1 GM in Premix Bag 1 BAG IVPB SCH (13:00)
--- NOTE | 2018-09-03 15:55 | DIS ---
DATE OF ADMISSION: 08/28/2018 DATE OF DISCHARGE: 09/03/2018 PRIMARY CARE PHYSICIAN: Dr. Leif Tim. DISCHARGE DISPOSITION: Home. PRIMARY DISCHARGE DIAGNOSES: 1. Diverticular disease with diverticulitis and small diverticular abscess. 2. Atrial fibrillation. 3. Chronic diastolic heart failure. 4. Chronic obstructive pulmonary disease. 5. Hyperlipidemia. 6. Hypothyroidism. 7. Sjogren disease. DISCHARGE MEDICATIONS: Include: 1. Omnicef 300 mg twice a day for two weeks. 2. Betapace 120 mg twice a day. 3. Flagyl 500 mg three times a day for two weeks. 4. Florastor 250 mg daily for a month. 5. Lyrica 25 mg q.8 hours. 6. Protonix 40 mg daily. 7. Nitrostat 0.4 sublingual p.r.n. 8. Lopressor 100 mg twice a day. 9. Lisinopril 20 mg twice daily. 10. Levsin 0.125 mg q.4 as needed. 11. Hydralazine 100 mg t.i.d. 12. Lasix 20 mg daily. 13. Digoxin 0.125 mg p.o. daily. 14. Flexeril 5 mg q.8 as needed. 15. Clonidine 0.3 mg t.i.d. 16. [place] Thyroid 60 mg daily. 17. Crestor 10 mg at bedtime. 18. Prednisone 15 mg daily. 19. Theragran-M daily. 20. Isosorbide mononitrate 30 mg twice a day. 21. Dicyclomine 20 mg q.6 as needed. PROCEDURES DONE DURING ADMISSION: The patient had a CT scan of the abdomen and pelvis, showing some abnormal colonic wall thickening in the transverse colon and some evidence for nonspecific colitis. There are extensive diverticulosis changes in the sigmoid colon. There was a small sinus tract from the sigmoid colon to previously drained collection in the anterior inferior left lower quadrant with reaccumulation of a small amount of fluid. CODE STATUS: Chemical code and intubation only. ALLERGIES: TO ADHESIVE TAPE, AMLODIPINE, ZOFRAN, AND SHE DEVELOPED ITCHING TO ZOSYN; THEREFORE, SHE MAY HAVE A PENICILLIN ALLERGY. HOSPITAL COURSE: Ms. Carrera is a pleasant 77-year-old female, who presented to the emergency room with complaints of severe abdominal pain, nausea, vomiting, and diarrhea. She was found to have evidence of diverticular disease on CT scan. She was recently hospitalized for similar problems and had a percutaneous drainage of an abscess. She was seen by both Gastroenterology as well as General Surgery and it was felt that due to the amount of scar tissue that she has intra-abdominally and this very small size of the abscess that surgical intervention was not warranted. She was placed on IV antibiotics and improved over the course of the next several days and will be discharged home on oral antibiotics. The choice of antibiotics was based on the potential allergy to penicillin as Augmentin would have been the ideal choice, fluoroquinolones was the second choice, but it reacted badly or it has a potential to react badly with her sotalol; therefore, the choice was made to place her on Omnicef and Flagyl as an alternative. 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 Tello in 2 weeks. Job ID: [id number]
== END 2018-09-03 13:21 | disposition home or self-care (01) | DRG 872 ==
LOC: ERS 14:50 → T4-B 19:00 → 2NO 22:29
PROVIDERS: ADMIT Emergency Medicine; ATTEND Emergency Medicine
DX: A41.9 Sepsis, unspecified organism (principal); I50.32 Chronic diastolic (congestive) heart failure; K57.20 Diverticulitis of large intestine with perforation and abscess without bleeding; I48.91 Unspecified atrial fibrillation; J44.9 Chronic obstructive pulmonary disease, unspecified; E78.5 Hyperlipidemia, unspecified; E03.9 Hypothyroidism, unspecified; I11.0 Hypertensive heart disease with heart failure; K52.9 Noninfective gastroenteritis and colitis, unspecified; M35.00 Sjogren syndrome, unspecified; E87.6 Hypokalemia; K21.9 Gastro-esophageal reflux disease without esophagitis; E83.42 Hypomagnesemia
CPT/HCPCS: 36415; 74177; 80048; 80053; 83690; 83735; 85007; 85025; 85027; 93005; 93010; 96365; 96374; 96375; 96376; J0360; J1200; J2185; J2270; J2405; J2543; J2550; J2765; J3370; J3475; J3480; J3490; J7050; J7512; Q0163; Q9966; Q9967

== ENCOUNTER 2018-09-23 09:01 | Inpatient (IN) | payer MEDICARE, BC ==
[2018-09-23] MEDS ORDERED: Diltiazem 125 MG in Sodium Chloride 0.9% 100 ML IVPB SCH ×2 (09:15→13:34)
--- NOTE | 2018-09-23 09:30 | RAD ---
XR Chest 1 View Portable History: [Chest pain] Comparison: Radiograph August 15, 2018 Findings: Heart size is enlarged. Thoracolumbar compression fractures with indwelling cement are jeison lar. No pneumothorax or effusion. No focal airspace consolidation. Ablation device is present within the left atrial appendage. Impression: No acute intrathoracic abnormality.
[2018-09-23 09:44] LABS: ALT (SGPT) 52 U/L (8-55); AST (SGOT) 47 U/L (5-34); Albumin 3.4 g/dL (3.4-4.8); Alkaline Phosphatase 89 U/L (40-150); Anion Gap 16 mmol/L (10-20); BUN (Urea Nitrogen) 12 mg/dL (9.8-20.1); Bilirubin, Total 0.6 mg/dL (0.2-1.2); Calc. Creatinine Clearance 0 mL/min (70-130); Calcium 9.6 mg/dL (7.8-10.44); Carbon Dioxide 20 mmol/L (23-31); Chloride 101 mmol/L (98-107); Estimated GFR-MDRD 68; Globulin 3.1 g/dL (2.4-3.5); Glucose 192 mg/dL (83-110); Protein, Total 6.5 g/dL (6.0-8.3); Sodium 133 mmol/L (136-145)
[2018-09-23 09:45] LABS: Band 1 % (5-11); Eosinophils 2 % (0-10); Hemoglobin 12.7 g/dL (12.0-16.0); Lymphocytes 40 % (21-51); MDiff Complete? YES; Mean Corpuscular HGB CONC 31.7 g/dL (32.0-36.0); Mean Corpuscular Hemoglobin 26.4 pg (27.0-31.0); Mean Corpuscular Volume 83.2 fL (78.0-98.0); Mean Platelet Volume 7.9 fL (7.4-10.4); Metamyelocyte 2 % (0-0); Monocytes 7 % (0-10); Neutrophil 48 % (42-75); Platelet Count 303 thou/uL (130-400); RBC Distribution Width 16.2 % (11.5-14.5); Red Blood Cell (RBC) Count 4.83 mill/uL (4.20-5.40); White Blood Cell (WBC) Count 19.3 thou/uL (4.8-10.8)
[2018-09-23 10:07] LABS: CKMB 5.4 ng/mL (0-6.6)
[2018-09-23 13:19] LABS: Troponin I 0.145 ng/mL (< 0.028)
[2018-09-23] MEDS ORDERED: Hyoscyamine Sulfate SL 0.125 mg Tablet PO PRN (13:34)
[2018-09-23] MEDS ORDERED: Cyclobenzaprine 10 MG TAB PO PRN (13:34)
[2018-09-23] MEDS ORDERED: Acetaminophen 325 MG TAB PO PRN (13:34)
[2018-09-23] MEDS ORDERED: hydrALAZINE 20 MG/ML VIAL SLOW IVP PRN (13:34)
[2018-09-23 14:18] LABS: Free T4 (Free Thyroxine) 0.97 ng/dL (0.70-1.48)
--- NOTE | 2018-09-23 14:22 | HP ---
PRIMARY CARE PHYSICIAN: Josey Barnard MD HR PAYROLL COORDINATOR: Rashel Gaitan MD CHIEF COMPLAINT: Chest pain. HISTORY OF PRESENT ILLNESS: Ms. Carrera is a very pleasant 77-year-old female, who has a history of atrial fibrillation. She has a history of cardioversion in the past and she also has a Watchman device in place. She says she was in her usual state of health until yesterday when she started having abdominal pain "all day" and she also was having nausea and vomiting. She says that occasionally her stomach will act up as a result of irritable bowel syndrome. She says that when her stomach acts up, then her heart goes "crazy." She says that the abdominal pain, vomiting, and diarrhea has subsided today, but then she woke up with pain in her chest. It was radiating across to the left side. She said it was fairly severe and this concerned her and for this reason, she came to the emergency room for evaluation. In the ER, she was evaluated and found to be in atrial fibrillation with rapid ventricular response. She was placed on a Cardizem drip and is being admitted for further treatment. When I walk in the room, the patient is actually begging me to leave the hospital. She says she does not want to stay in the hospital and that every time she comes in the hospital, she gets extremely weak. She denies having any shortness of breath. She denies any nausea or vomiting. She says the chest pain has subsided and says that she took her medications this morning and she reiterates that when my stomach goes crazy, my heart always does this. However, her heart rate is still in the low 100s even on the Cardizem drip and she is now agreeable to be admitted to the hospital, but says that she only wants to be in for short time. REVIEW OF SYSTEMS: All systems were reviewed and are negative except for that mentioned in the history of present illness. PAST MEDICAL HISTORY: Significant for chronic atrial fibrillation, hypertension, chronic diastolic heart failure, chronic respiratory failure due to COPD, hyperlipidemia, hypothyroidism, chronic anemia, and she has chronic back wounds. PAST SURGICAL HISTORY: She has had an I and D of diverticular abscess. She has had a Watchman device placed, lumbar laminectomy, thyroidectomy, and vertebroplasty. ALLERGIES: TO AMLODIPINE. SOCIAL HISTORY: She is a nonsmoker and nondrinker. No drug use. She lives independently at home. She would like to be a chemical code only. She also accept intubation. FAMILY HISTORY: Significant for cerebrovascular disease. MEDICATIONS: She says her medications are the same as what she was discharged on when she left the hospital about a month ago and these include; 1. Betapace 120 mg twice daily. 2. Flagyl 500 mg 3 times a day. 3. Florastor 250 mg daily. 4. Lyrica 25 mg q.8. 5. Protonix 40 mg daily. 6. Nitrostat 0.4 sublingual p.r.n. 7. Lopressor 100 mg twice daily. 8. Lisinopril 20 mg twice a day. 9. Levsin 0.125 mg q.4. 10. Hydralazine 100 mg t.i.d. 11. Lasix 20 mg daily. 12. Digoxin 0.125 mg daily. 13. Flexeril 5 mg q.8 hours as needed. 14. Clonidine 0.3 mg t.i.d. 15. [place] Thyroid 60 mg daily. 16. Crestor 10 mg daily. 17. Prednisone 15 mg daily. 18. Theragran-M once a day. 19. Isosorbide mononitrate 30 mg twice daily. 20. Dicyclomine 20 mg q.6 hours as needed. PHYSICAL EXAMINATION: GENERAL: She is alert and oriented. She appears to be in no acute distress. She is well developed and well nourished, however, she is chronically ill in appearance. VITAL SIGNS: Blood pressure is 138/76, heart rate is 101 to 104, respiratory rate of 16, and she is afebrile. HEENT: Her pupils are equal, round, and reactive to light. Extraocular muscles are intact. Her sclerae are anicteric. Throat; no erythema, no exudates. NECK: No adenopathy. No bruits. LUNGS: Clear to auscultation. There are no wheezing, no rales, no rhonchi. CARDIOVASCULAR: Her heart rate is irregular. There are no murmurs, no clicks, no rubs. ABDOMEN: Soft. It is nontender, nondistended. Positive for bowel sounds. No rebound. No guarding. No organomegaly. EXTREMITIES: She has some nonpitting edema in both her upper and lower extremities. She has some bruising in her extremities as well as acute some skin tears on the upper extremities. NEUROLOGIC: Her cranial nerves II through XII are intact. Her muscle strength is 5/5. SKIN AND INTEGUMENT: As previously mentioned, she had some bruising and skin tears on her extremities. DIAGNOSTIC DATA: On EKG, she was in atrial fibrillation with a heart rate in the 160s originally. She had some ST-segment depression in leads I, II, and aVL as well as V4 through V6 and this is by my reading. Her white blood cell count was 19.3, hemoglobin 12.7, hematocrit is 40.2, and platelet count was 303. Sodium is 133, potassium 4.0, chloride is 101, CO2 is 20, BUN of 12, creatinine 0.82, and glucose is 192. Troponin is 0.090. ASSESSMENT AND PLAN: 1. This is a pleasant 77-year-old female, who presents to the emergency room in atrial fibrillation with rapid ventricular response. She has a long history of atrial fibrillation in the past. I suspect that her heart rate became elevated when she was unable to keep her medications down due to the flare-up of her irritable bowel syndrome. She will be admitted to telemetry. We will continue the Cardizem drip. Restart her home medications. Hopefully within the next 24 hours, her heart rate will stabilize and she can be transitioned off the Cardizem drip and then hopefully discharged home. 2. Hypertension. We will go ahead and continue her usual home medications. However, we will hold off on the second dose of lisinopril and restart this in the a.m. P.r.n. medications can be used in the interim. 3. Chronic diastolic heart failure. This appears to be clinically compensated. 4. Chronic respiratory failure due to chronic obstructive pulmonary disease. This also appears to be compensated. We will continue her home medications. 5. History of hypothyroidism. We will go ahead and check a TSH and free T4, but clinically she does appear to be euthyroid. The patient does not require anticoagulation as she has a Watchman device and we will be placing her on deep venous thrombosis and gastrointestinal prophylaxis. Job ID: [id number]
[2018-09-23] MEDS ORDERED: HYDROcodone/Acetaminophen 10/325 mg Tablet ONE (14:45)
[2018-09-23] MEDS: HYDROcodone/Acetaminophen 10/325 mg Tablet PO PRN ×2 (14:48→21:44)
[2018-09-23 16:13] LABS: Troponin I 0.145 ng/mL (< 0.028)
[2018-09-23] MEDS: cloNIDine 0.3 MG TAB PO SCH ×2 (16:35→21:42)
[2018-09-23] MEDS ORDERED: hydrALAZINE 25 MG TAB ONE (16:39)
[2018-09-23] MEDS: hydrALAZINE 25 MG TAB PO SCH ×2 (16:42→21:42)
[2018-09-23 18:21] VITALS: BMI 25.2
[2018-09-23] MEDS ORDERED: Rosuvastatin 10 MG TAB PO SCH (21:00)
[2018-09-23] MEDS: Pregabalin 25 MG CAP PO SCH ×2 (21:39→21:43)
[2018-09-23] MEDS: Sotalol HCl 80 MG TAB PO SCH (21:41)
[2018-09-23] MEDS: Famotidine 20 MG TAB PO SCH (21:42)
[2018-09-23] MEDS: Metoprolol Tartrate 100 MG TAB PO SCH (21:42)
[2018-09-24] MEDS: Pregabalin 25 MG CAP PO SCH (05:50)
[2018-09-24] MEDS: HYDROcodone/Acetaminophen 10/325 mg Tablet PO PRN (05:52)
[2018-09-24 06:05] LABS: #Eosinphils 0.5 thou/uL (0.0-0.7); #Lymphocytes 5.4 thou/uL (1.20-3.40); #Monocytes 1.1 thou/uL (0.11-0.59); #Neutrophils 8.9 thou/uL (1.40-6.50); %Basophils 0.3 % (0.0-1.0); %Eosinophils 3.1 % (0.0-10.0); %Neutrophils 55.7 % (42.0-75.0); Hemoglobin 10.2 g/dL (12.0-16.0); Mean Corpuscular HGB CONC 32.3 g/dL (32.0-36.0); Mean Corpuscular Hemoglobin 26.8 pg (27.0-31.0); Mean Corpuscular Volume 83.1 fL (78.0-98.0); Mean Platelet Volume 8.1 fL (7.4-10.4); Platelet Count 215 thou/uL (130-400); RBC Distribution Width 16.1 % (11.5-14.5); Red Blood Cell (RBC) Count 3.82 mill/uL (4.20-5.40); White Blood Cell (WBC) Count 15.9 thou/uL (4.8-10.8)
[2018-09-24 07:01] LABS: Anion Gap 12 mmol/L (10-20); BUN (Urea Nitrogen) 18 mg/dL (9.8-20.1); Calc. Creatinine Clearance 34 mL/min (70-130); Calcium 8.3 mg/dL (7.8-10.44); Carbon Dioxide 25 mmol/L (23-31); Chloride 98 mmol/L (98-107); Estimated GFR-MDRD 42; Glucose 130 mg/dL (83-110); Potassium 3.6 mmol/L (3.5-5.1); Sodium 131 mmol/L (136-145)
[2018-09-24 07:46] VITALS: TEMP 98.1
[2018-09-24] MEDS: Sotalol HCl 80 MG TAB PO SCH (08:52)
[2018-09-24] MEDS: Famotidine 20 MG TAB PO SCH (08:53)
[2018-09-24] MEDS: Metoprolol Tartrate 100 MG TAB PO SCH (08:53)
[2018-09-24] MEDS: hydrALAZINE 25 MG TAB PO SCH (08:54)
[2018-09-24] MEDS: cloNIDine 0.3 MG TAB PO SCH (08:55)
[2018-09-24] MEDS ORDERED: Lisinopril 20 MG TAB PO SCH (09:00)
[2018-09-24] MEDS ORDERED: Digoxin 0.125 MG TAB PO SCH (09:00)
[2018-09-24] MEDS ORDERED: predniSONE 5 MG TAB PO SCH (09:00)
[2018-09-24] MEDS ORDERED: Thyroid 60 MG TAB PO SCH (09:00)
[2018-09-24] MEDS ORDERED: Saccharomyces boulardii 250 MG CAP PO SCH (09:00)
[2018-09-24] MEDS ORDERED: Enoxaparin Sodium 40 MG/0.4 ML SYRINGE SC SCH (09:00)
[2018-09-24] MEDS ORDERED: Furosemide 20 MG TAB PO SCH (09:00)
[2018-09-24 12:10] VITALS: BP 118/57
--- NOTE | 2018-09-24 21:40 | DIS ---
DATE OF ADMISSION: 09/23/2018 DATE OF DISCHARGE: 09/24/2018 DISCHARGE DIAGNOSES: 1. Atrial fibrillation with rapid ventricular response, currently atrial paced and ventricular sensing. 2. Irritable bowel syndrome. 3. Hyponatremia, mild. 4. Acute kidney injury secondary to volume depletion, mild. 5. Demand ischemia secondary to #1. 6. Hypothyroidism, stable. 7. Chronic diastolic heart failure, compensated. 8. Leukocytosis, secondary to chronic prednisone therapy. CONSULTATIONS: None. PERTINENT LAB AND X-RAY FINDINGS: Sodium ranged between 131 to 133. Creatinine ranged between 0.82 to 1.25. Estimated GFR ranged between 42 to 68. Troponin I ranged between 0.090 to 0.145. BNP 477, previously noted 1020 on 08/08/2018. TSH 1.07, free T4 of 0.97. CBC showed white blood cell count ranged between 15.9 to 19.3. Portable chest x-ray dated 09/23/2018, showed no acute cardiopulmonary process. HOSPITAL COURSE: The patient was initially admitted to the telemetry unit after presenting with atrial fibrillation with rapid ventricular response, initially managed with Cardizem infusion. The patient had rapid return to controlled rate with current atrial pacing in the 70s. The patient likely was experiencing malabsorption of her chronic rate control agents due to irritable bowel syndrome and diarrhea. The patient's overall irritable bowel syndrome and diarrhea had improved with conservative management by the time of discharge. The patient was resumed on her regular medication regimen to include clonidine, digoxin, metoprolol, and Betapace. The patient's telemetry monitoring currently showing atrial paced rhythm with ventricular sensing in the 70s. The patient is asymptomatic and states she feels back to baseline. I have examined the patient at the time of discharge and discussed followup instructions. The patient verbalized understanding and agreement ready for discharge on 09/24/2018. DISCHARGE MEDICATIONS: 1. Dicyclomine 20 mg p.o. q.6 hours p.r.n. abdominal cramps. 2. Isosorbide mononitrate 30 mg p.o. b.i.d. 3. Multivitamin 1 tablet p.o. daily. 4. Prednisone 10 mg p.o. daily. 5. Crestor 10 mg p.o. at bedtime. 6. [place] Thyroid 60 mg p.o. q.a.m. 7. Clonidine 0.3 mg p.o. t.i.d. 8. Flexeril 5 mg p.o. t.i.d. p.r.n. 9. Digoxin 0.125 mg p.o. daily. 10. Lasix 20 mg p.o. daily. 11. Hydralazine 100 mg p.o. t.i.d. 12. Levsin sublingually 0.125 mg p.o. q.4 hours p.r.n. 13. Lisinopril 20 mg p.o. b.i.d., hold until 09/26/2018. 14. Metoprolol tartrate 100 mg p.o. b.i.d. 15. Nitroglycerin 0.4 mg sublingually q.5 minutes p.r.n. chest pain. 16. Protonix 40 mg p.o. daily. 17. Lyrica 25 mg p.o. t.i.d. 18. Betapace 120 mg p.o. b.i.d. FOLLOWUP: The patient will follow up with Dr. Tim within 7 days of discharge. CONDITION ON DISCHARGE: Stable. ACTIVITY: Ad kike, rolling walker with ambulation. SPECIAL INSTRUCTIONS: The patient is to resume home health services with [facility] for wound care to the lower back. DIET: Heart healthy. CODE STATUS: Chemical code only with intubation. DISPOSITION: Home, 09/24/2018. TIME SPENT: Total time preparing and coordinating discharge, 32 minutes. Job ID: [id number]
== END 2018-09-24 13:30 | disposition home health service (06) | DRG 309 ==
LOC: ERS 09:01 → ERHOLD 10:26 → 2NO 17:21
PROVIDERS: ADMIT Student in an Organized Health Care Education/Training Program; ATTEND Student in an Organized Health Care Education/Training Program
DX: I48.91 Unspecified atrial fibrillation (principal); I50.32 Chronic diastolic (congestive) heart failure; J96.10 Chronic respiratory failure, unspecified whether with hypoxia or hypercapnia; E87.1 Hypo-osmolality and hyponatremia; N17.9 Acute kidney failure, unspecified; I24.8 Other forms of acute ischemic heart disease; I11.0 Hypertensive heart disease with heart failure; J44.9 Chronic obstructive pulmonary disease, unspecified; E78.5 Hyperlipidemia, unspecified; E03.9 Hypothyroidism, unspecified; D64.9 Anemia, unspecified; K58.9 Irritable bowel syndrome, unspecified; D72.829 Elevated white blood cell count, unspecified; Z98.890 Other specified postprocedural states; Z88.6 Allergy status to analgesic agent; Z79.899 Other long term (current) drug therapy
CPT/HCPCS: 36415; 71045; 80048; 80053; 82553; 83880; 84439; 84443; 84484; 85025; 93005; J1650; J3490; J7512

== ENCOUNTER 2018-11-17 10:01 | Inpatient (IN) | payer MEDICARE, BC ==
[2018-11-17] MEDS ORDERED: Morphine 4 MG/ML VIAL ONE ×2 (10:37→13:46)
[2018-11-17] MEDS ORDERED: Ondansetron PF 4 MG/2 ML Vial ONE (10:37)
[2018-11-17 11:26] LABS: ALT (SGPT) 20 U/L (8-55); AST (SGOT) 33 U/L (5-34); Albumin 3.4 g/dL (3.4-4.8); Alkaline Phosphatase 87 U/L (40-150); Anion Gap 19 mmol/L (10-20); BUN (Urea Nitrogen) 7 mg/dL (9.8-20.1); Calc. Creatinine Clearance 0 mL/min (70-130); Calcium 9.9 mg/dL (7.8-10.44); Carbon Dioxide 21 mmol/L (23-31); Chloride 93 mmol/L (98-107); Estimated GFR-MDRD 75; Globulin 4.3 g/dL (2.4-3.5); Glucose 131 mg/dL (83-110); Lipase 13 U/L (8-78); Potassium 4.9 mmol/L (3.5-5.1); Protein, Total 7.7 g/dL (6.0-8.3); Sodium 128 mmol/L (136-145)
[2018-11-17] MEDS ORDERED: Piperacillin/Tazobactam 4.5 GM VIAL ONE (11:28)
[2018-11-17 11:34] LABS: Band 4 % (5-11); Hemoglobin 12.3 g/dL (12.0-16.0); Lymphocytes 39 % (21-51); MDiff Complete? YES; Mean Corpuscular HGB CONC 32.6 g/dL (32.0-36.0); Mean Corpuscular Hemoglobin 26.8 pg (27.0-31.0); Mean Corpuscular Volume 82.2 fL (78.0-98.0); Mean Platelet Volume 7.5 fL (7.4-10.4); Monocytes 4 % (0-10); Neutrophil 53 % (42-75); Platelet Count 353 thou/uL (130-400); RBC Distribution Width 16.8 % (11.5-14.5); Red Blood Cell (RBC) Count 4.59 mill/uL (4.20-5.40); White Blood Cell (WBC) Count 32.5 thou/uL (4.8-10.8)
[2018-11-17 11:42] LABS: CKMB 2.8 ng/mL (0-6.6)
--- NOTE | 2018-11-17 12:23 | CT ---
CT Abdomen Pelvis W Con History: Abdominal pain Comparison: CT abdomen and pelvis August 28, 2018 Findings: Lung bases are clear. No pericardial effusion. Prior cholecystectomy. Punctate hypodensities are present of the spleen, similar to the comparison ex am. Advanced calcifications of the aortoiliac system. The diverticular abscess has grown in size which contains gas, likely a contained perforation, extend ing along the left inguinal canal. There is an air-fluid level. The contained perforation measures 5.2 x 4.7 x 8 cm with sigmoid colon connection on the antimesenteric side of the sigmoid colon. There is another contained perforation of the descending colon which contains gas, is small, without significant adjacent inflammation. No hydronephrosis. Multiple compression deformities of the thoracolumbar spine, some of which contain cement. No retroperitoneal periaortic adenopathy. Impression: 1. Enlarged from prior exam contained perforation of the antimesenteric side sigmoid colon extending to the inguinal canal. Surgical consultation advised. 2. Smaller focus of contained perforation from prior diverticulitis of the descending colon which con tains gas without significant adjacent stranding. 3. Possible filling defect in the left common femoral vein. Ultrasound recommended.
[2018-11-17] MEDS ORDERED: Acetaminophen 500 MG TAB ONE (12:26)
[2018-11-17] MEDS ORDERED: ISOVUE-370 76%-LOCM 1 ML ONE (12:31)
--- NOTE | 2018-11-17 13:31 | ULT ---
ULTRASOUND DOPPLER DUPLEX VENOUS LEFT LOWER EXTREMITY: DATE: 11/17/2018 HISTORY: Filling defect found in left common femoral vein on CT. 77-year-old female. Dr. Calhoun notified community health advisor/technologist Glendy Warren of the positive DVT by telephone at 1:28 PM on . She was instructed to notify Dr. Fontana as soon as possible. TECHNIQUE: Grayscale, color-flow, and spectral analysis, of the left common femoral, profunda femoral, greater s aphenous, femoral, popliteal, and posterior tibial, veins. FINDINGS: There is thrombosis causing incomplete compressibility of the common femoral vein and the mid portion of the femoral vein. There is blood flow around the thrombus in these veins. No definite DVT found in the proximal and distal portions of the femoral vein. There is no evidence of DVT in the popliteal vein. There is blood flow in the posterior tibial vein. IMPRESSION: Positive for nonocclusive deep venous thrombosis in the left common femoral vein and femoral vein.
[2018-11-17] MEDS ORDERED: Aspirin 300 MG Suppository ONE (13:46)
[2018-11-17] MEDS ORDERED: Aspirin Chewable 81 MG TAB ONE (13:46)
[2018-11-17 14:01] LABS: INR-International Normal Ratio 1.1; PTT 33.9 SEC (22.9-36.1); Prothrombin Time 14.4 SEC (12.0-14.7)
[2018-11-17] MEDS ORDERED: Heparin 25,000 units/D5W 500 ML ONE (15:37)
[2018-11-17] MEDS ORDERED: Heparin 1,000 UNITS/ML VIAL ONE (16:02)
[2018-11-17] MEDS ORDERED: Sodium Chloride 0.9% 1,000 ML IV SCH (16:58)
[2018-11-17] MEDS ORDERED: Ondansetron PF 4 MG/2 ML Vial IVP PRN (16:58)
[2018-11-17] MEDS ORDERED: Ondansetron ODT 4 MG TAB SL PRN (16:58)
[2018-11-17] MEDS ORDERED: Heparin 10,000 UNITS/ 10 ML VIAL SLOW IVP SCH (16:59)
[2018-11-17] MEDS ORDERED: Acetaminophen 325 MG TAB PO PRN (16:59)
[2018-11-17 17:13] VITALS: BMI 26.2
[2018-11-17 17:21] LABS: Hemoglobin 9.5 g/dL (12.0-16.0); Platelet Count 245 thou/uL (130-400)
[2018-11-17 18:01] LABS: PTT Greater than 250.0 SEC (22.9-36.1)
[2018-11-17] MEDS: Piperacillin/Tazobactam 3.375 GM in Sodium Chloride 0.9% 100 ML IVPB SCH ×2 (18:22→23:38)
--- NOTE | 2018-11-17 18:51 | HP ---
PRIMARY CARE PHYSICIAN: Dr. Tim. CHIEF COMPLAINT: Abdominal pain. HISTORY OF PRESENT ILLNESS: Ms. Carrera is a pleasant 77-year-old female, who has a history of atrial fibrillation as well as hypothyroidism and hypertension. She says that she was having some abdominal pain and she thought it could be an attack of her irritable bowel syndrome. She was noticing some cramping and pain rectally. This was actually earlier this week on Monday and when this started, and then on , she says she started getting so sore that she could barely move in the left lower abdomen and she says last night, she started having fever. She took one of her Keflex pills that she had left and said it helped a little, but then this morning she got up and could barely sit up and her says that she better come to the emergency room. She was evaluated in the ER and found to have quite elevated white blood cell count at 32,500, and CT scan demonstrated some evidence of diverticular abscess. She was recently admitted to our facility for similar complaint of diverticular abscess. This was treated medically due to her multiple medical comorbidities. The surgeon has been consulted and wishes for her to be admitted to our service and he will consult. However, it is my understanding that the plan is for nonsurgical treatment or possibly Interventional Radiology drainage of the abscess. Also down in the ER, the patient was found to have a deep vein thrombosis in the left common femoral vein. REVIEW OF SYSTEMS: CONSTITUTIONAL: She has had fever as of last night. No chills. No night sweats. No weight loss. HEENT: No headaches. No dizziness. No visual changes. No sore throat, rhinorrhea, or neck pain. No adenopathy. PULMONARY: No hemoptysis. No cough. No wheezing. CARDIOVASCULAR: She denies any chest pain. No shortness of breath. No PND. No orthopnea. GASTROINTESTINAL: As the history of present illness. GENITOURINARY: No urinary frequency or hematuria. No hesitancy. MUSCULOSKELETAL: No muscle pains, weakness, or joint pains. NEUROLOGIC: No focal weakness or numbness. No seizures. PSYCHIATRIC: No symptoms of anxiety or depression. SKIN AND INTEGUMENT: No skin changes. No rash. PAST MEDICAL HISTORY: Significant for atrial fibrillation, hyponatremia, hypothyroidism, chronic diastolic heart failure, hypertension, COPD, and hyperlipidemia. PAST SURGICAL HISTORY: She has had an I and D of a diverticular abscess, Watchman device, lumbar laminectomy, thyroidectomy, and vertebroplasty. ALLERGIES: TO AMLODIPINE. SOCIAL HISTORY: She is a nonsmoker and nondrinker. She is . She lives at home with her . She would not want to have chest compressions, but would agree to a chemical code and she would accept intubation. FAMILY HISTORY: Significant for coronary artery disease. CURRENT MEDICATIONS: Include; 1. Somis Thyroid 60 mg once a day. 2. Potassium chloride 20 mEq twice a day. 3. Metoprolol 25 mg twice daily. 4. Clonidine 0.3 mg three times a day. 5. Omeprazole 20 mg once daily. 6. Dicyclomine 10 mg every 6 as needed. 7. BuSpar 10 mg once a day. 8. Hydralazine 100 mg three times a day. 9. Lisinopril 20 mg twice daily. 10. Sotalol 80 mg two times a day. 11. Isosorbide mononitrate extended release 60 mg daily. 12. Digoxin 0.125 mg daily. 13. Lialda 1.2 g daily. 14. Prednisone 20 mg twice a day. 15. Aspirin 81 mg daily. 16. Zyrtec 10 mg daily. 17. Albuterol inhaler four times a day. PHYSICAL EXAMINATION: GENERAL: She is alert and oriented. She appears to be in no acute distress, but she does appear to be chronically ill and she does appear to be in some discomfort. VITAL SIGNS: Her blood pressure was 162/66, heart rate 83, respiratory rate of 22, temperature is 98.8. HEENT: Pupils are equal, round, and reactive to light. Extraocular muscles are intact. Her sclerae are anicteric. Throat, there is no erythema, no exudates. NECK: No adenopathy, no bruits. LUNGS: Clear to auscultation. There is no wheezing, no rales, no rhonchi. CARDIOVASCULAR: She has a normal S1 and S2. There is no S3 or S4. No murmurs, clicks, or rubs. ABDOMEN: Soft. She does have some left upper and lower quadrant tenderness. There is no rebound, no guarding. No appreciable organomegaly. EXTREMITIES: She has trace non-pedal edema on the calves. No joint effusions. NEUROLOGIC: This is grossly nonfocal. Her muscle strength is 5/5 in both upper and lower extremities. SKIN AND INTEGUMENT: There is some bruising on the lower extremities, but otherwise it is negative or no other acute skin findings. LABORATORY DATA: Lab results: The white blood cell count is 32.5, hemoglobin 12.3, hematocrit is 37.7, and platelet count is 353. INR is 1.1. Sodium 128, potassium 4.9, chloride is 93, CO2 is 21, BUN is 7, creatinine 0.75, glucose is 131. Lactic acid is 2.7. Troponin is 0.070. Her EKG is sinus rhythm, the rate is [address] wave changes and this is by my reading. ASSESSMENT: This is a 77-year-old female, who presents with abdominal pain and leukocytosis as well as elevated lactic acid. She has sepsis due to a diverticular abscess, which is recurrent. 1. Recurrent diverticular abscess. We will place her on IV antibiotics to cover for gram-negative and anaerobic organisms. General Surgery will be consulted as well as ID. She may ultimately need Interventional Radiology for percutaneous drainage of the abscess. However, we will leave this under the direction of General Surgery. She will also be placed on moderate fluid resuscitation. 2. Left femoral deep vein thrombosis. We will continue the heparin drip. This was chosen for its rapid start and stop features in the event that she needs an urgent procedure done. She denies any history of gastrointestinal bleeding or significant bleed in the past. 3. Hyponatremia. This appears to be chronic in nature and could be due to volume depletion. We will recheck in the a.m. and treat accordingly. 4. Hypertension. She may require IV medications for blood pressure control while she is n.p.o. and further recommendations are to follow. 5. She will be placed on gastrointestinal prophylaxis. Job ID: [id number]
[2018-11-17] MEDS ORDERED: Melatonin 3 MG TAB PO PRN (21:10)
[2018-11-17] MEDS ORDERED: cloNIDine 0.1 MG TAB PO PRN (21:10)
[2018-11-17] MEDS ORDERED: traMADol HCl 50 MG TAB PO PRN (21:10)
[2018-11-17] MEDS: HYDROcodone/Acetaminophen 5/325 mg Tablet PO PRN (22:21)
--- NOTE | 2018-11-17 23:35 | CON ---
DATE OF CONSULTATION: 11/17/2018 CONSULTING PHYSICIAN: Alexandr Garcia MD REASON FOR CONSULTATION: Diverticular abscess. HISTORY OF PRESENT ILLNESS: The patient is a chronically ill, 77-year-old white female, well known to myself. I initially saw her in October of 2017 for diverticulitis with micro perforation. At which time, I performed a laparoscopic washout from which she eventually recovered. Since then, on numerous occasions, I have recommended that we have tried to proceed to surgery for a colon resection to prevent her ongoing problems with diverticular disease, but for a variety of reasons, this has never been able to be scheduled. In August, she was admitted to the hospital with a diverticular abscess and this was drained percutaneously. I have not seen her subsequently. She still has an open wound on her back from back surgery in June. This speaks towards her inability to heal in a normal fashion. She was admitted to the hospital today because the evaluation in the emergency room revealed a large diverticular abscess penetrating through the abdominal wall in the left groin. PAST MEDICAL HISTORY: 1. Constipation. 2. Diverticular disease with multiple episodes of diverticulitis with at least 3 episodes of diverticular perforation. 3. Sjogren syndrome. 4. Atrial fibrillation. 5. Chronic diastolic heart dysfunction. 6. Hypertension. 7. Hypothyroidism. 8. History of Dawson's crisis. 9. Gastroesophageal reflux disease. PAST SURGICAL HISTORY: 1. Thyroidectomy. 2. Hysterectomy. 3. Appendectomy. 4. Cataract surgery. 5. Cholecystectomy. 6. Ablation procedure for atrial fibrillation. 7. Watchman procedure. 8. Back surgery with kyphoplasty. 9. Laparoscopic washout of perforated diverticulitis in October 2017. 10. Pacemaker placement in March 2018. 11. Multilevel back surgery per Dr. Hairston in June 2018. 12. Percutaneous drainage of diverticular abscess on July 12, 2018. ALLERGIES: AMLODIPINE, MORPHINE, MESALAMINE, AND GABAPENTIN. CURRENT MEDICATIONS: Numerous and continue to include prednisone. PHYSICAL EXAMINATION: VITAL SIGNS: She is afebrile, temperature 97.4, pulse is 77, blood pressure is 159/116. GENERAL: She is a well-developed, well-nourished female, resting in bed. She looks chronically ill. HEAD, EYES, EARS, NOSE, AND THROAT: Unremarkable. NECK: Supple. LUNGS: Clear to auscultation. CARDIAC: Regular rate and rhythm. ABDOMEN: Nondistended and soft. Bowel sounds are present. : There is a tender indurated mass in her left groin consistent with the abscess seen on the CT scan. This appears to be at least 6 or 7 cm in diameter. LABORATORY DATA: Her white blood cell count is 32.5. Her last white blood cell count in September was 15.9. Hemoglobin is 9.5, platelet count is 245. Chemistry panel reveals her sodium and chloride are low at 128 and 93. Albumin is 3.4. X-rays as mentioned in the CT scan demonstrates a diverticular abscess penetrating through the abdominal wall, originated from the sigmoid colon. This measures about 8 cm in maximum dimension. There is an another area of the descending colon several centimeters superior to the sigmoid colon where there appears to be a contained perforation extended from the colon to the abdominal wall, but this is much smaller. ASSESSMENT: The patient with diverticulitis this indicates the penetration of the abscess through the abdominal wall. For now, my plan is to drain the abscess. I will perform this in the operating room tomorrow under anesthesia. In regard to her colon, I think she require some form of resection or at least a diversion to keep this from continuing to happen. I do not think she would do well with a resectional surgery, and given that I would probably need to resect both the left colon and sigmoid colon, I am not certain how easy it would be to get everything back together. I think that she would fare best with a colostomy, but this recommendation distresses her significantly. I would recommend that we address this later after the current abscesses is drained. Job ID: [id number]
[2018-11-18] MEDS: HYDROcodone/Acetaminophen 5/325 mg Tablet PO PRN (02:34)
[2018-11-18] MEDS: Labetalol HCl 100 MG/20 ML VIAL SLOW IVP PRN ×2 (04:28→23:51)
[2018-11-18 05:42] LABS: Anion Gap 12 mmol/L (10-20); BUN (Urea Nitrogen) 6 mg/dL (9.8-20.1); Calc. Creatinine Clearance 70 mL/min (70-130); Calcium 8.1 mg/dL (7.8-10.44); Carbon Dioxide 21 mmol/L (23-31); Chloride 104 mmol/L (98-107); Estimated GFR-MDRD Greater than 90; Glucose 96 mg/dL (83-110); Potassium 3.2 mmol/L (3.5-5.1); Sodium 134 mmol/L (136-145)
[2018-11-18] MEDS: Piperacillin/Tazobactam 3.375 GM in Sodium Chloride 0.9% 100 ML IVPB SCH ×4 (05:56→23:38)
[2018-11-18] MEDS: hydrALAZINE 20 MG/ML VIAL SLOW IVP PRN (05:57)
[2018-11-18 09:13] LABS: #Eosinphils 0.2 thou/uL (0.0-0.7); #Lymphocytes 2.3 thou/uL (1.20-3.40); #Monocytes 0.7 thou/uL (0.11-0.59); #Neutrophils 13.1 thou/uL (1.40-6.50); %Basophils 0.3 % (0.0-1.0); %Eosinophils 1.1 % (0.0-10.0); %Lymphocytes 14.2 % (21.0-51.0); %Neutrophils 80.4 % (42.0-75.0); Hemoglobin 9.4 g/dL (12.0-16.0); Mean Corpuscular HGB CONC 32.4 g/dL (32.0-36.0); Mean Corpuscular Hemoglobin 27.1 pg (27.0-31.0); Mean Corpuscular Volume 83.6 fL (78.0-98.0); Platelet Count 243 thou/uL (130-400); RBC Distribution Width 16.3 % (11.5-14.5); Red Blood Cell (RBC) Count 3.48 mill/uL (4.20-5.40); White Blood Cell (WBC) Count 16.3 thou/uL (4.8-10.8)
[2018-11-18] MEDS ORDERED: Hydrocortisone Sod Succ/PF 100 mg/2 ml Vial ONE ×2 (13:13→20:50)
[2018-11-18] MEDS ORDERED: PROPOFOL 200 MG/20 ML VIAL ONE (13:13)
[2018-11-18] MEDS ORDERED: Lidocaine 1% PF 5 ML VIAL ONE (13:13)
[2018-11-18] MEDS ORDERED: Ondansetron PF 4 MG/2 ML Vial ONE ×2 (13:13→17:41)
[2018-11-18] MEDS: Morphine 2 MG/ML SYRINGE SLOW IVP PRN ×2 (13:16→23:52)
--- NOTE | 2018-11-18 14:32 | PDOC.PN ---
- Subjective Encounter Start Date: 11/18/18 Encounter Start Time: 11:15 Ms. Carrera was seen today in follow-up of diverticular abscess. She continues to have pain, in her lower abdomen, and also says her left shoulder is hurting as well. - Objective Resuscitation Status - Order Detail: 11/17/18 14:42 Resuscitation Status Routine Resuscitation Status: PRTL: Chem-Intubation Discussed with: Discussed with the patient MAR Reviewed: Yes Vital Signs & Weight: Vital Signs (12 hours) Temp Pulse BP Pulse Ox 11/18/18 11:28 99.4 F 11/18/18 07:49 100 11/18/18 07:32 101.0 F H 11/18/18 05:57 78 11/18/18 05:55 189/99 H 11/18/18 04:28 78 11/18/18 04:00 98.8 F Weight Weight 130 lb 1.164 oz Most Recent Monitor Data Heart Rate from ECG 111 NIBP 186/66 NIBP BP-Mean 106 Respiration from ECG 15 SpO2 100 Result Diagrams: 11/18/18 05:02 11/18/18 05:02 Phys Exam - Physical Examination HEENT: PERRLA Respiratory: no wheezing, no rales, clear to auscultation bilateral + rhonchi bilateral Cardiovascular: RRR, no significant murmur, no rub Gastrointestinal: soft, non-tender, no distention, positive bowel sounds Musculoskeletal: pulses present, edema present + non-pitting edema in both lower extremities Neurological: non-focal, normal sensation Dx/Plan (1) Colonic diverticular abscess Code(s): K57.20 - DVTRCLI OF LG INT W PERFORATION AND ABSCESS W/O BLEEDING Status: Acute (2) Physical deconditioning Code(s): R53.81 - OTHER MALAISE Status: Acute (3) Chronic atrial fibrillation Code(s): I48.2 - CHRONIC ATRIAL FIBRILLATION Status: Chronic Comment: h/o Watchman device (4) Hypertension Code(s): I10 - ESSENTIAL (PRIMARY) HYPERTENSION Status: Chronic Qualifiers: Hypertension type: essential hypertension Qualified Code(s): I10 - Essential (primary) hypertension Comment: Labile secondary to abd pain and inconsistent po intake of antihypertensives, resume home BP regimen, serial monitoring, Hydralazine IV prn (5) Hypothyroidism Code(s): E03.9 - HYPOTHYROIDISM, UNSPECIFIED Status: Chronic Qualifiers: Hypothyroidism type: acquired Qualified Code(s): E03.9 - Hypothyroidism, unspecified (6) Sepsis Code(s): A41.9 - SEPSIS, UNSPECIFIED ORGANISM Status: Acute Qualifiers: Sepsis type: sepsis due to unspecified organism Qualified Code(s): A41.9 - Sepsis, unspecified organism Comment: Appears to be GI source with colitis/diverticulitis, continue Zosyn, blood cx pending - Plan * Diverticular Abscess with sepsis- her WBC count is improving, and lactic acid level has improved * Continue Zosyn * Plan is for I&D of the abscess today * HTN- her blood pressure is elevated- will continue PRN Hydralazine and Labeatolol, while she is NPO * AFIB- her heart rate is overall stable- will continue to monitor * She is on Heparin drip, for bridging stroke prevention
--- NOTE | 2018-11-18 15:04 | CON ---
DATE OF CONSULTATION: 11/17/2018 REASON FOR CONSULTATION: Persistent/recurrent diverticulitis with perforation and abscess. HISTORY OF PRESENT ILLNESS: A 77-year-old patient whom I had seen in the past and she was diagnosed with Sjogren's syndrome. She has been on corticosteroids since. She also has a history of hypothyroidism, atrial fibrillation, and hypertension. The patient was diagnosed with diverticulitis a few months ago and had laparoscopic drainage and then was given antimicrobial therapy. At that time, she had had polymicrobial organisms that was retrieved and the aspirate including two different strains of E coli, the two are fairly sensitive to Enterococcus, anaerobes including Bacteroides and she also had Noris albicans. The patient had recurrence of the abscess in June and this time, she had percutaneous drainage and antimicrobial therapy. The patient did not have resection of the colon because of concerns with healing due to corticosteroid use. She had lumbosacral spine surgery by Dr. Hairston in June, which has not yet completely healed. Now, she presents with worsening pain in the left lower quadrant, fever, leukocytosis with a CT scan demonstrating maintenance of leak and abscess in the left lower quadrant as noted below. Currently, Ms. Carrera is in the [facility] and she is concerned about this development. Dr. Alfonso has just finished evaluating her in the clinic and has scheduled the patient for drainage procedure tomorrow and possible colostomy placement. She denies headaches. No visual symptoms. No sore throat, odynophagia, or dysphagia. No dyspnea or chest pain. No dysuria, pneumaturia or diarrhea. No joint symptoms except for the usual osteoarthrosis symptoms. PAST MEDICAL HISTORY: Sjogren syndrome, atrial fibrillation, hypothyroidism, hyperlipidemia, hypertension, osteoarthritis, fibromyalgia, diverticulitis with perforation and abscess which was drained laparoscopically and then via percutaneous drainage. ALLERGIES: INCLUDES NORVASC, ALTHOUGH PATIENT DOES NOT ACKNOWLEDGE THAT ALLERGY HISTORY. MEDICATIONS: At home, she was takin. Prednisone 20 mg daily. 2. Aspirin. 3. Cetirizine. 4. Vitamins. 5. Clonidine. 6. Metoprolol. 7. Dicyclomine. 8. BuSpar. 9. Lisinopril. 10. Sotalol. 11. Lialda. SOCIAL HISTORY: Never smoker. No alcoholic beverage use. PAST SURGICAL HISTORY: Cholecystectomy, hysterectomy, laparoscopic drainage of sigmoid diverticulitis with perforation and abscess, pacemaker placement, and laminectomy in L3 and T8 area. PHYSICAL EXAMINATION: VITAL SIGNS: T-max 98.6, blood pressure 150/55, O2 saturation 100, heart rate 77. SKIN: Shows peripheral IV access. She is voiding without difficulty. No lymphadenopathy. HEENT: Ocular movements conjugate. Pupils are equal. Oral cavity somewhat dry. NECK: Supple. No jugular venous distention. LUNGS: Symmetric clear breath sounds. HEART: S1 and S2 without murmurs. No S3. Regular rate. ABDOMEN: Tender in the left lower quadrant with erythematous area, bulging close to the groin and with induration in that site. The remainder aspects of the abdomen are not remarkable. No distention. Bowel sounds are present. EXTREMITIES: The patient has evidence of osteoarthrosis in knees and ankles. Pulses 1+ in dorsalis pedis. No edema. She is able to move extremities equally. She is awake, follows commands, oriented. LABORATORY DATA: White cell count 32.5, hemoglobin 12.3, platelets 353 with 52% neutrophils and 4% bands. INR 1.1. Sodium 128, creatinine 0.75. Liver profile normal. Albumin 3.4, globulin 4.3 urine cultures with no growth at 36 hours from July. No current cultures are resulted at this time. The patient did not have any culture submitted frankly. Had abdomen and pelvis CT from today with enlarged perforation in the antimesenteric side of the sigmoid colon extending to the inguinal canal. Smaller focus of contained perforation from prior diverticulitis of the descending colon. There was a deep vein thrombosis noted, which was confirmed by duplex ultrasound of the left common femoral vein. Because of that, she has been started on IV heparin per protocol. ASSESSMENT: Sjogren's syndrome, chronic corticosteroids, persistent/recurrent diverticulitis with perforation and abscess status post two drainage procedures , now with a phlegmon/abscess in the left lower quadrant extending to the skin of the groin. DISCUSSION: The patient has scheduled procedure for tomorrow for drainage of the abscess. She will have a colostomy placed at sometime later on. The patient has been started on proper antimicrobial therapy and will follow the clinical course. She is at high risk for complications related to her immunosuppression, chronic corticosteroid intake. Job ID: [id number] [facility]
[2018-11-18] MEDS ORDERED: Cyclobenzaprine 10 MG TAB PO PRN (16:29)
[2018-11-18] MEDS ORDERED: Nitroglycerin 0.4 MG TAB (25 Tab Bottle) SL PRN (16:29)
[2018-11-18] MEDS ORDERED: Hyoscyamine Sulfate SL 0.125 mg Tablet PO PRN (16:29)
[2018-11-18] MEDS ORDERED: Dicyclomine 20 MG TAB PO PRN (16:31)
[2018-11-18] MEDS ORDERED: Piperacillin/Tazobactam 3.375 GM VIAL ONE (17:35)
[2018-11-18] MEDS ORDERED: Fentanyl 100 MCG/2 ML VIAL ONE ×4 (17:40→20:53)
[2018-11-18] MEDS ORDERED: Sodium Chloride 0.9% 100 ML ONE (19:12)
[2018-11-18] MEDS ORDERED: Bupivacaine/Epinephrine 0.25% 30 ML VIAL ONE (19:59)
[2018-11-18] MEDS ORDERED: PACU-Morphine 4MG/ML VIAL SLOW IVP PRN (20:40)
[2018-11-18] MEDS ORDERED: Morphine Sulfate 2 MG/ML SYRINGE SLOW IVP PRN (20:40)
[2018-11-18] MEDS ORDERED: Ondansetron HCl/PF 4 MG/2 ML Vial IVP PRN (20:40)
[2018-11-18] MEDS ORDERED: Promethazine HCl 25 MG/ML VIAL SLOW IVP PRN (20:40)
[2018-11-18] MEDS ORDERED: HYDROmorphone 2 MG/ML VIAL SLOW IVP PRN (20:40)
[2018-11-18] MEDS ORDERED: Promethazine HCl 25 MG/ML VIAL IM PRN (20:40)
[2018-11-18] MEDS ORDERED: HYDROmorphone 2 MG/ML VIAL ONE (20:58)
[2018-11-18] MEDS: hydrALAZINE 25 MG TAB PO SCH (21:26)
[2018-11-18] MEDS: Metoprolol Tartrate 100 MG TAB PO SCH (21:26)
[2018-11-18] MEDS: Lisinopril 20 MG TAB PO SCH (21:26)
[2018-11-18] MEDS: Sotalol HCl 80 MG TAB PO SCH (21:26)
[2018-11-18] MEDS: Rosuvastatin 10 MG TAB PO SCH (21:27)
[2018-11-18] MEDS: cloNIDine 0.3 MG TAB PO SCH (21:27)
[2018-11-18] MEDS: Pregabalin 25 MG CAP PO SCH (21:27)
[2018-11-18] MEDS ORDERED: diphenhydrAMINE 25 MG CAP PO SCH (22:15)
[2018-11-19] MEDS: Pregabalin 25 MG CAP PO SCH ×3 (06:19→21:14)
[2018-11-19] MEDS: Piperacillin/Tazobactam 3.375 GM in Sodium Chloride 0.9% 100 ML IVPB SCH ×4 (06:19→23:34)
[2018-11-19] MEDS: Sotalol HCl 80 MG TAB PO SCH ×2 (09:00→21:16)
[2018-11-19] MEDS: Digoxin 0.125 MG TAB PO SCH (09:01)
[2018-11-19] MEDS: Metoprolol Tartrate 100 MG TAB PO SCH ×2 (09:01→21:15)
[2018-11-19] MEDS: Multivitamin W/ Minerals 1 TAB PO SCH (09:01)
[2018-11-19] MEDS: predniSONE 5 MG TAB PO SCH (09:01)
[2018-11-19] MEDS: Thyroid 60 MG TAB PO SCH (09:01)
[2018-11-19] MEDS: cloNIDine 0.3 MG TAB PO SCH ×3 (09:01→21:15)
[2018-11-19] MEDS: Saccharomyces boulardii 250 MG CAP PO SCH (09:01)
[2018-11-19] MEDS: Lisinopril 20 MG TAB PO SCH ×2 (09:01→21:15)
[2018-11-19] MEDS: hydrALAZINE 25 MG TAB PO SCH ×3 (09:01→21:14)
--- NOTE | 2018-11-19 10:25 | PRG ---
DATE OF SERVICE: 11/19/2018 SUBJECTIVE: Ms. Carrera is a pleasant female, well known to me. She is back with a recurrent abscess. General Surgery is contemplating options. Infectious Disease is involved. I was consulted because of her presence in the intermediate care unit. At this point in time, it is really not a whole lot for me to add other than she is modestly hypertensive with a blood pressure of 210/91 this morning. PAST HISTORY: Not obtained. SOCIAL HISTORY: Not obtained. FAMILY HISTORY: Non contributory. REVIEW OF SYSTEMS: 10 point review of systems completed, otherwise negative. OBJECTIVE: GENERAL: Ms. Carrera is well known to me, and is back with a recurrent abscess. VITAL SIGNS: Heart rate is in the 90s, respiratory rates in the teens, and oximetry is 100%. HEENT: pupils react. NECK: Supple. LUNGS: Completely clear. HEART: Regular rhythm. ABDOMEN: Minimally tender. EXTREMITIES: Without clubbing. IMPRESSION AND PLAN: 1. Asthma, clinically stable. 2. Recurrent diverticular abscess. 3. Deconditioning. 4. Steroid dependence. Prior to surgery, she will need a higher dose of steroids. I will follow along with the other physicians caring for, although fortunately, there are no acute pulmonary issues. This is a 50 minute consult, with greater than 50% of time spent on unit coordinating care. Job ID: [id number] [facility]TD[facility]
[2018-11-19 11:44] LABS: #Eosinphils 0.1 thou/uL (0.0-0.7); #Lymphocytes 1.5 thou/uL (1.20-3.40); #Monocytes 0.6 thou/uL (0.11-0.59); #Neutrophils 10.5 thou/uL (1.40-6.50); %Basophils 0.3 % (0.0-1.0); %Eosinophils 0.5 % (0.0-10.0); %Lymphocytes 12.1 % (21.0-51.0); %Monocytes 4.4 % (0.0-10.0); %Neutrophils 82.8 % (42.0-75.0); Hemoglobin 7.9 g/dL (12.0-16.0); Mean Corpuscular HGB CONC 32.7 g/dL (32.0-36.0); Mean Corpuscular Hemoglobin 27.1 pg (27.0-31.0); Mean Corpuscular Volume 82.9 fL (78.0-98.0); Platelet Count 229 thou/uL (130-400); RBC Distribution Width 16.3 % (11.5-14.5); Red Blood Cell (RBC) Count 2.92 mill/uL (4.20-5.40); White Blood Cell (WBC) Count 12.6 thou/uL (4.8-10.8)
[2018-11-19 12:14] LABS: Anion Gap 11 mmol/L (10-20); BUN (Urea Nitrogen) 9 mg/dL (9.8-20.1); Calc. Creatinine Clearance 65 mL/min (70-130); Calcium 7.8 mg/dL (7.8-10.44); Carbon Dioxide 22 mmol/L (23-31); Chloride 102 mmol/L (98-107); Estimated GFR-MDRD 84; Glucose 153 mg/dL (83-110); Potassium 3.2 mmol/L (3.5-5.1); Sodium 132 mmol/L (136-145)
--- NOTE | 2018-11-19 12:20 | PDOC.PN ---
- Subjective Encounter Start Date: 11/19/18 Encounter Start Time: 12:18 Ms. Carrera was seen today in follow-up of diverticular abscess. She says she feels much better today. She says her body hurts less, and she basely has any abdominal pain. - Objective Resuscitation Status - Order Detail: 11/17/18 14:42 Resuscitation Status Routine Resuscitation Status: PRTL: Chem-Intubation Discussed with: Discussed with the patient MAR Reviewed: Yes Vital Signs & Weight: Vital Signs (12 hours) Temp Pulse BP BP Pulse Ox 11/19/18 10:37 98.8 F 11/19/18 09:01 91 218/91 H 11/19/18 09:00 91 218/91 H 11/19/18 08:15 100 11/19/18 07:41 161/72 H 11/19/18 07:27 98.6 F 11/19/18 03:45 97.2 F L 150/67 H 11/19/18 01:06 165/72 H Weight Weight 130 lb 1.164 oz Most Recent Monitor Data Heart Rate from ECG 77 NIBP 220/93 NIBP BP-Mean 135 Respiration from ECG 24 SpO2 99 I&O: 11/18/18 11/19/18 11/20/18 06:59 06:59 06:59 Intake Total 540 Output Total 300 Balance 240 Result Diagrams: 11/19/18 11:34 11/19/18 11:34 Phys Exam - Physical Examination HEENT: PERRLA Respiratory: no wheezing, no rales, no rhonchi, clear to auscultation bilateral Cardiovascular: RRR, no significant murmur, no rub Gastrointestinal: soft, non-tender, no distention, positive bowel sounds Musculoskeletal: pulses present, edema present trace pedal edema Dx/Plan (1) Colonic diverticular abscess Code(s): K57.20 - DVTRCLI OF LG INT W PERFORATION AND ABSCESS W/O BLEEDING Status: Acute (2) Physical deconditioning Code(s): R53.81 - OTHER MALAISE Status: Acute (3) Chronic atrial fibrillation Code(s): I48.2 - CHRONIC ATRIAL FIBRILLATION Status: Chronic Comment: h/o Watchman device (4) Hypertension Code(s): I10 - ESSENTIAL (PRIMARY) HYPERTENSION Status: Chronic Qualifiers: Hypertension type: essential hypertension Qualified Code(s): I10 - Essential (primary) hypertension Comment: Labile secondary to abd pain and inconsistent po intake of antihypertensives, resume home BP regimen, serial monitoring, Hydralazine IV prn (5) DVT (deep venous thrombosis) Code(s): I82.409 - ACUTE EMBOLISM AND THOMBOS UNSP DEEP VN UNSP LOWER EXTREMITY Status: Acute (6) Hypothyroidism Code(s): E03.9 - HYPOTHYROIDISM, UNSPECIFIED Status: Chronic Qualifiers: Hypothyroidism type: acquired Qualified Code(s): E03.9 - Hypothyroidism, unspecified (7) Sepsis Code(s): A41.9 - SEPSIS, UNSPECIFIED ORGANISM Status: Acute Qualifiers: Sepsis type: sepsis due to unspecified organism Qualified Code(s): A41.9 - Sepsis, unspecified organism Comment: Appears to be GI source with colitis/diverticulitis, continue Zosyn, blood cx pending - Plan * Diverticular Abscess- continue Zosyn Sepsis related to this is improving, and she is s/p I& D of the area * HTN- blood pressure is elevated this morning, but was about 160/94 when I came to see her. She was just started back on her home medications * Hypothyroidism- stable. * DVT- will continue Heparin drip for now, but can transition to Eliquis once we are fairly sure she will not require any more procedures * Chronic AFIB s/p Watchman- clinically stable * Physical deconditioning- will consult PT/OT
--- NOTE | 2018-11-19 15:19 | OP ---
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 PROCEDURES PERFORMED: Incision and drainage of left groin abscess, incision and drainage of left lower quadrant intra-abdominal abscess, placement of intraabdominal drain. ANESTHESIA: General endotracheal. INDICATIONS: The patient is a 77-year-old chronically-ill white female. She has a long recent history of diverticulitis and complications from this. She presented to the hospital at this time with an obvious painful left groin abscess. CT scan reveals that this communicates with an intraabdominal abscess emanating from her sigmoid colon. She was taken to the operating at this time for drainage. DESCRIPTION OF OPERATION: Informed consent was obtained. The patient was taken to the operating room, where general endotracheal anesthesia was obtained with the patient in supine position. Abdomen and groin were prepped with ChloraPrep and draped in sterile fashion. Local anesthetic was infiltrated using 0.25% Marcaine with epinephrine. A transverse incision was created overlying the palpable mass in her groin. Dissection was carried through skin and subcutaneous tissue and into the abscess cavity. There was a large volume of air within the cavity, but also a large volume of creamy purulent material. It, surprisingly, was not particularly foul smelling. Cultures were obtained of this. The wound was then explored. Meticulous hemostasis was obtained. I pressed within the abdomen and was able to see the tract through, which the purulence emanated. I identified this and dilated this with a hemostat. I was eventually able to pass the tip of the Yankauer sucker into this collection and aspirated further purulent material. I was able to pass my finger in and palpate the area. I irrigated both the subcutaneous abscess and intraabdominal abscess with peroxide. I obtained a half-inch Francisco drain and passed this through the muscular wall into the abdominal cavity and secured this to the muscle of the abdominal wall with a suture of 3-0 Vicryl. I then packed the abscess cavity with peroxide moistened gauze with a Farner drain coming out within that gauze. Dry gauze dress was placed externally. There were no complications. The patient tolerated the procedure well and was taken to recovery room in stable condition. Job ID: [id number]
--- NOTE | 2018-11-19 16:46 | PRG ---
DATE OF SERVICE: 11/19/2018 SUBJECTIVE: Ms. Carrera is postoperative day #1 from drainage of a left groin abscess that communicated with an intraabdominal abscess. This was widely drained as well. She has a Francisco drain, draining the intraabdominal component into the groin wound. Dressing remains intact at this time. She tells me she feels much, much better and her pain is essentially resolved. She does tell me that she is hungry. OBJECTIVE: VITAL SIGNS: She is afebrile, her blood pressure is currently 138/64. LUNGS: Clear to auscultation. ABDOMEN: Benign and nontender. Left groin dressing is intact. LABORATORY DATA: Her white blood cell count is 12.6, down from 16.3. Her hemoglobin is 7.9, down from 9.4 yesterday. Cultures, her Gram stain reveals gram-negative rods. Final cultures are pending. ASSESSMENT AND PLAN: She is doing well following drainage of the left groin and intraabdominal abscesses. I will consult Wound Care team to begin dressing changes tomorrow. I would anticipate placement of a wound VAC eventually. I would hope to leave the [place] drain intraabdominal for about 2 weeks before removal. There is an internal suture to the abdominal wall, but that should dissolve on its own by about 2 weeks. Job ID: [id number]
[2018-11-19 17:13] LABS: Hemoglobin 7.7 g/dL (12.0-16.0); Platelet Count 227 thou/uL (130-400)
--- NOTE | 2018-11-19 17:32 | PRG ---
DATE OF SERVICE: 11/19/2018 SUBJECTIVE: Ms. Carrera had a drainage procedure. She has not had any other intervention at this point in time such as colostomy. I think when things get under better control, then it will be attempted. She feels better after the procedure and the drainage and there is less pain. No respiratory symptoms, and she is voiding in the urinal. OBJECTIVE: VITAL SIGNS: With a downward trend of her temperature curve. Other vital signs are normal. O2 saturation 99%. GENERAL: Appears no distress. HEENT: Ocular movements conjugate. LUNGS: Clear. HEART: S1 and S2. Regular rate. ABDOMEN: She has the area of opening in the groin region with Francisco drain. DIAGNOSTIC STUDIES: Microbiology with gram-negative lyudmila from the groin drainage. It is probably going to be the one of the E. coli that was isolated from the previous cultures. ASSESSMENT AND DISCUSSION: Sjogren's syndrome, on chronic corticosteroids, persistent diverticulitis with abscess, which has had previous drainage procedures, now with recrudescence and had a 3rd drainage procedure. 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 She eventually will need a colostomy diversion of this process to allow resolution. In the meantime, she will have to be on antimicrobial therapy guided by the microbiology. Job ID: [id number]
[2018-11-19] MEDS: Rosuvastatin 10 MG TAB PO SCH (21:15)
[2018-11-20] MEDS: Piperacillin/Tazobactam 3.375 GM in Sodium Chloride 0.9% 100 ML IVPB SCH ×4 (06:05→23:50)
[2018-11-20] MEDS: Pregabalin 25 MG CAP PO SCH ×3 (06:05→21:06)
[2018-11-20] MEDS: hydrALAZINE 25 MG TAB PO SCH ×3 (09:09→21:04)
[2018-11-20] MEDS: Sotalol HCl 80 MG TAB PO SCH ×2 (09:09→21:05)
[2018-11-20] MEDS: Thyroid 60 MG TAB PO SCH (09:09)
[2018-11-20] MEDS: Digoxin 0.125 MG TAB PO SCH (09:10)
[2018-11-20] MEDS: cloNIDine 0.3 MG TAB PO SCH ×3 (09:10→21:04)
[2018-11-20] MEDS: predniSONE 5 MG TAB PO SCH (09:10)
[2018-11-20] MEDS: Metoprolol Tartrate 100 MG TAB PO SCH ×2 (09:10→21:01)
[2018-11-20] MEDS: Multivitamin W/ Minerals 1 TAB PO SCH (09:10)
[2018-11-20] MEDS: Lisinopril 20 MG TAB PO SCH ×2 (09:10→21:01)
[2018-11-20] MEDS: Saccharomyces boulardii 250 MG CAP PO SCH (09:10)
[2018-11-20] MEDS: Morphine 2 MG/ML SYRINGE SLOW IVP PRN (10:31)
--- NOTE | 2018-11-20 14:54 | PRG ---
DATE OF SERVICE: 11/20/2018 SUBJECTIVE: Ms. Carrera is postoperative day #2 from incision and drainage of left groin abscess and drainage of left lower quadrant intraabdominal abscess. The patient notes that she feels entirely better and "back to her usual self." She ate a regular breakfast this morning. Notes that she has an excellent appetite. She denies any pain at all. Her dressing has not been changed. OBJECTIVE: VITAL SIGNS: She is afebrile, pulse 75, blood pressure 160/62. ABDOMEN: Soft, nontender, and nondistended. Dressing is intact, left lower quadrant/groin. LABORATORY DATA: No labs were obtained today. Culture reveals E coli. Anaerobic culture is pending. The E coli sensitive to Zosyn. ASSESSMENT AND PLAN: She is doing well following her surgery. She is happy with her results. Wound Care will perform dressing change today. There is a Hope drain that is draining the intraabdominal component of the abscess. I will likely initiate a wound VAC tomorrow and discharge planning may proceed. Job ID: [id number]
--- NOTE | 2018-11-20 16:06 | PDOC.PN ---
- Subjective Encounter Start Date: 11/20/18 Encounter Start Time: 16:04 Subjective: Feeling better. -: Denied fever, N, V or abdomional pain. - Objective Resuscitation Status - Order Detail: 11/17/18 14:42 Resuscitation Status Routine Resuscitation Status: PRTL: Chem-Intubation Discussed with: Discussed with the patient Vital Signs & Weight: Vital Signs (12 hours) Temp Pulse Pulse Pulse BP BP BP 11/20/18 15:47 98.4 F 11/20/18 14:09 84 81 132/61 142/57 H 11/20/18 11:45 75 78 160/62 H 140/71 11/20/18 11:05 98.0 F 11/20/18 09:10 91 11/20/18 09:09 91 11/20/18 08:28 11/20/18 07:35 97.4 F L 11/20/18 06:17 120/56 L 11/20/18 04:24 116/57 L Pulse Ox Pulse Ox Pulse Ox 11/20/18 15:47 11/20/18 14:09 100 99 11/20/18 11:45 100 99 11/20/18 11:05 11/20/18 09:10 11/20/18 09:09 11/20/18 08:28 100 11/20/18 07:35 11/20/18 06:17 11/20/18 04:24 Weight Admit Weight 130 lb 1.164 oz Weight 130 lb 1.164 oz Most Recent Monitor Data Heart Rate from ECG 83 NIBP 132/61 NIBP BP-Mean 84 Respiration from ECG 27 SpO2 100 I&O: 11/19/18 11/20/18 11/21/18 06:59 06:59 06:59 Intake Total 540 1330 Output Total 300 300 Balance 240 1030 Result Diagrams: 11/19/18 16:56 11/19/18 11:34 Phys Exam - Physical Examination Constitutional: NAD afebrile HEENT: moist MMs Neck: supple fair air entry bilaterally Cardiovascular: irregular Gastrointestinal: soft, no distention, positive bowel sounds left groin dressing noted Musculoskeletal: no edema, pulses present Neurological: non-focal, moves all 4 limbs Psychiatric: A&O x 3 Dx/Plan (1) DVT (deep venous thrombosis) Code(s): I82.409 - ACUTE EMBOLISM AND THOMBOS UNSP DEEP VN UNSP LOWER EXTREMITY Status: Acute (2) Physical deconditioning Code(s): R53.81 - OTHER MALAISE Status: Acute (3) Acute blood loss anemia Code(s): D62 - ACUTE POSTHEMORRHAGIC ANEMIA Status: Acute Comment: Likely due to Lower GI bleed Patient will benefit from elective colectomy Will follow GI recs Will transfuse when H/H <7 will monitor CBC in the AM (4) Colonic diverticular abscess Code(s): K57.20 - DVTRCLI OF LG INT W PERFORATION AND ABSCESS W/O BLEEDING Status: Acute (5) Diverticulitis Code(s): K57.92 - DVTRCLI OF INTEST, PART UNSP, W/O PERF OR ABSCESS W/O BLEED Status: Acute (6) Sepsis Code(s): A41.9 - SEPSIS, UNSPECIFIED ORGANISM Status: Acute Qualifiers: Sepsis type: sepsis due to unspecified organism Qualified Code(s): A41.9 - Sepsis, unspecified organism Comment: Appears to be GI source with colitis/diverticulitis, continue Zosyn, blood cx pending (7) Atrial fibrillation Code(s): I48.91 - UNSPECIFIED ATRIAL FIBRILLATION Status: Chronic - Plan Continue antibiotics -: Monitor H/H -: Get iron chemistry -: Transfer patient to surgical floor. * .
--- NOTE | 2018-11-20 16:21 | PRG ---
DATE OF SERVICE: 11/20/2018 SUBJECTIVE: Arabella Carrera has no complaints. The wound was dressed and apparently the wound looks good this morning. She denies shortness of breath. OBJECTIVE: LUNGS: Clear. HEART: Regular rhythm. ABDOMEN: Soft. LABORATORY DATA: Hemoglobin was 7.7 yesterday. There is no hemoglobin today. Electrolytes were essentially unremarkable yesterday. IMPRESSION: Status post incision and drainage of left groin abscess and left lower quadrant intraabdominal abscess with placement of a drain. E coli is growing out of the wound in her groin. She appears to be stable surprisingly. We will continue to follow. Her asthma is stable. Job ID: [id number]
[2018-11-20] MEDS: Heparin 25,000 units/D5W 500 ML IVPB SCH (16:54)
[2018-11-20] MEDS: Rosuvastatin 10 MG TAB PO SCH (21:01)
[2018-11-21] MEDS: Piperacillin/Tazobactam 3.375 GM in Sodium Chloride 0.9% 100 ML IVPB SCH ×3 (05:58→19:22)
[2018-11-21] MEDS: hydrALAZINE 20 MG/ML VIAL SLOW IVP PRN (06:05)
[2018-11-21] MEDS: Pregabalin 25 MG CAP PO SCH ×3 (06:07→22:17)
[2018-11-21 07:27] LABS: #Eosinphils 0.1 thou/uL (0.0-0.7); #Monocytes 0.5 thou/uL (0.11-0.59); #Neutrophils 4.4 thou/uL (1.40-6.50); %Basophils 0.4 % (0.0-1.0); %Eosinophils 1.4 % (0.0-10.0); %Lymphocytes 28.5 % (21.0-51.0); %Monocytes 7.6 % (0.0-10.0); %Neutrophils 62.2 % (42.0-75.0); Hemoglobin 7.7 g/dL (12.0-16.0); Mean Corpuscular HGB CONC 31.7 g/dL (32.0-36.0); Mean Corpuscular Hemoglobin 26.1 pg (27.0-31.0); Mean Corpuscular Volume 82.3 fL (78.0-98.0); Mean Platelet Volume 6.8 fL (7.4-10.4); Platelet Count 247 thou/uL (130-400); RBC Distribution Width 16.3 % (11.5-14.5); Red Blood Cell (RBC) Count 2.96 mill/uL (4.20-5.40)
[2018-11-21 07:49] LABS: Anion Gap 10 mmol/L (10-20); BUN (Urea Nitrogen) 10 mg/dL (9.8-20.1); Calc. Creatinine Clearance 62 mL/min (70-130); Calcium 7.6 mg/dL (7.8-10.44); Carbon Dioxide 24 mmol/L (23-31); Chloride 104 mmol/L (98-107); Estimated GFR-MDRD 80; Glucose 128 mg/dL (83-110); Sodium 135 mmol/L (136-145)
[2018-11-21 07:51] LABS: Potassium 2.8 mmol/L (3.5-5.1)
[2018-11-21] MEDS: hydrALAZINE 25 MG TAB PO SCH ×3 (08:42→22:21)
[2018-11-21] MEDS: cloNIDine 0.3 MG TAB PO SCH ×3 (08:42→22:12)
[2018-11-21] MEDS: Digoxin 0.125 MG TAB PO SCH (08:42)
[2018-11-21] MEDS: Multivitamin W/ Minerals 1 TAB PO SCH (08:42)
[2018-11-21] MEDS: Metoprolol Tartrate 100 MG TAB PO SCH ×2 (08:42→22:12)
[2018-11-21] MEDS: predniSONE 5 MG TAB PO SCH (08:42)
[2018-11-21] MEDS: Thyroid 60 MG TAB PO SCH (08:42)
[2018-11-21] MEDS: Lisinopril 20 MG TAB PO SCH ×2 (08:42→22:16)
[2018-11-21] MEDS: Saccharomyces boulardii 250 MG CAP PO SCH (08:42)
[2018-11-21] MEDS: Sotalol HCl 80 MG TAB PO SCH ×2 (08:43→22:39)
[2018-11-21] MEDS: Potassium Chloride 20 MEQ TAB PO SCH ×4 (11:49→22:27)
[2018-11-21] MEDS: Morphine 2 MG/ML SYRINGE SLOW IVP PRN (12:10)
[2018-11-21] MEDS ORDERED: Morphine 4 MG/ML VIAL SLOW IVP PRN (12:12)
[2018-11-21] MEDS ORDERED: Morphine 4 MG/ML VIAL ONE (12:13)
[2018-11-21] MEDS ORDERED: Sodium Chloride Nasal 15 GM TUBE EA NARE PRN (12:14)
[2018-11-21] MEDS ORDERED: Ipratropium Bromide 0.03% Nasal Inhaler 30 ml Bottle EA NARE SCH (12:30)
--- NOTE | 2018-11-21 14:32 | PDOC.PN ---
- Subjective Encounter Start Date: 11/21/18 Encounter Start Time: 14:30 Subjective: Feeling better. Had pain during dressing change but that has improved. -: Tolerating oral intake. No fever, nausea and vomiting. - Objective Resuscitation Status - Order Detail: 11/17/18 14:42 Resuscitation Status Routine Resuscitation Status: PRTL: Chem-Intubation Discussed with: Discussed with the patient Vital Signs & Weight: Vital Signs (12 hours) Temp Pulse Pulse BP BP Pulse Ox 11/21/18 10:35 98.0 F 11/21/18 09:59 107 H 172/75 H 11/21/18 08:43 91 11/21/18 08:42 91 11/21/18 08:30 98 11/21/18 07:30 98.0 F 11/21/18 06:35 187/67 H 11/21/18 06:05 91 11/21/18 03:38 98.9 F Weight Admit Weight 130 lb 1.164 oz Weight 130 lb 1.164 oz Most Recent Monitor Data Heart Rate from ECG 77 NIBP 172/75 NIBP BP-Mean 107 Respiration from ECG 22 SpO2 100 I&O: 11/20/18 11/21/18 11/22/18 06:59 06:59 06:59 Intake Total 1330 1896 Output Total 300 1150 Balance 1030 746 Result Diagrams: 11/21/18 07:21 11/21/18 07:21 Phys Exam - Physical Examination Constitutional: NAD HEENT: moist MMs Neck: no JVD, supple Respiratory: no wheezing, no rales, no rhonchi, clear to auscultation bilateral Cardiovascular: RRR Gastrointestinal: soft, no distention, positive bowel sounds mild left lower quadrant tenderness. Left groin area dressing and wound vac noted Musculoskeletal: no edema, pulses present Neurological: non-focal, moves all 4 limbs Psychiatric: A&O x 3 Dx/Plan (1) DVT (deep venous thrombosis) Code(s): I82.409 - ACUTE EMBOLISM AND THOMBOS UNSP DEEP VN UNSP LOWER EXTREMITY Status: Acute (2) Physical deconditioning Code(s): R53.81 - OTHER MALAISE Status: Acute (3) Acute blood loss anemia Code(s): D62 - ACUTE POSTHEMORRHAGIC ANEMIA Status: Acute Comment: Likely due to Lower GI bleed Patient will benefit from elective colectomy Will follow GI recs Will transfuse when H/H <7 will monitor CBC in the AM (4) Colonic diverticular abscess Code(s): K57.20 - DVTRCLI OF LG INT W PERFORATION AND ABSCESS W/O BLEEDING Status: Acute (5) Diverticulitis Code(s): K57.92 - DVTRCLI OF INTEST, PART UNSP, W/O PERF OR ABSCESS W/O BLEED Status: Acute (6) Sepsis Code(s): A41.9 - SEPSIS, UNSPECIFIED ORGANISM Status: Acute Qualifiers: Sepsis type: sepsis due to unspecified organism Qualified Code(s): A41.9 - Sepsis, unspecified organism Comment: Appears to be GI source with colitis/diverticulitis, continue Zosyn, blood cx pending (7) Atrial fibrillation Code(s): I48.91 - UNSPECIFIED ATRIAL FIBRILLATION Status: Chronic (8) Hypomagnesemia Code(s): E83.42 - HYPOMAGNESEMIA Status: Resolved Comment: Continue Mg++ 128mg BID - Plan Replete serum potassium and magnesium. Recheck in the am -: Get iron chemistry given chronic anemia. -: Continue H/h monitoring. -: Continue heparin anticoagulation. transition to oral in the am if H/h stabl -: Wound care as per surgery to continue. * .
[2018-11-21] MEDS ORDERED: Magnesium Sulfate 4 GM in Sodium Chloride 0.9% 250 ML 250 ML IVPB SCH (14:45)
--- NOTE | 2018-11-21 17:36 | PRG ---
DATE OF SERVICE: 11/21/2018 SUBJECTIVE: Arabella Carrera this morning was complained of sore throat and sinus drainage. She also was complaining that her morphine dose was not controlling the pain she had with wound care . OBJECTIVE: VITAL SIGNS: She is afebrile. Heart rate 77, blood pressure 172/95, respiratory rate 20. LUNGS: Free of wheezes. HEART: Regular rhythm. ABDOMEN: Soft and nontender. LABORATORY DATA: White count 7, hemoglobin 7.7, platelets 247. Sodium 135, potassium 2.8, chloride 104, bicarbonate 24, BUN 10, creatinine 0.7. IMPRESSION: 1. Status post incision and drainage of left lower quadrant abscess. 2. History of perforated diverticulitis with no clinical or apparent leak at this time. 3. History of asthma. 4. Rhinitis induced sore throat. PLAN: 1. Nasal ipratropium, nasal saline. 2. I have increased her morphine dose. We will continue to follow the other physicians caring for. Job ID: [id number]
[2018-11-21] MEDS: Heparin 25,000 units/D5W 500 ML IVPB SCH (19:21)
[2018-11-21] MEDS: Rosuvastatin 10 MG TAB PO SCH (22:11)
[2018-11-21] MEDS: Ipratropium Bromide 0.03% Nasal Inhaler 30 ml Bottle EA NARE SCH (22:22)
[2018-11-21] MEDS ORDERED: Potassium Chloride 20 MEQ TAB PO SCH (22:30)
--- NOTE | 2018-11-21 23:46 | PRG ---
DATE OF SERVICE: 11/21/2018 SUBJECTIVE: Ms. Carrera continues to do well following drainage of the left groin and left lower quadrant intraabdominal abscess on November 19. Today, the wound care team changed her dressing and placed a wound VAC. The Francisco drain remains in place draining the intraabdominal component of the infection. Ms. Carrera continues to note that she feels well. She denies any pain and tells me she has a good appetite. OBJECTIVE: VITAL SIGNS: She is afebrile, pulse 77, and blood pressure 178/70. LUNGS: Clear to auscultation. ABDOMEN: Soft, nontender, and nondistended. Dressing is intact in the left groin. LABORATORY DATA: White blood cell count is 7 and hemoglobin is 7.7. ASSESSMENT: She is doing well following drainage of her diverticulitis related abscess that had eroded through her left lower quadrant abdominal wall. She can be moved out of the intermediate care unit at any time. I have cleared her for anticoagulation as necessary for her partially occluded thrombosis. This is being managed by the medical service. I think that Ms. Carrera would be best served with a stay in either rehabilitation facility or detention facility when she is discharged. I think that she will be fine for discharge within the next day or two. I will continue to follow her in regard to the abscess and at some point, we will make a decision regarding recommendations for colon surgery. Job ID: [id number]
[2018-11-21] MEDS: HYDROcodone/Acetaminophen 5/325 mg Tablet PO PRN (23:50)
[2018-11-22] MEDS: Piperacillin/Tazobactam 3.375 GM in Sodium Chloride 0.9% 100 ML IVPB SCH ×2 (00:04→06:13)
[2018-11-22 01:31] LABS: Potassium 4.7 mmol/L (3.5-5.1)
[2018-11-22 05:27] LABS: Albumin 2.5 g/dL (3.4-4.8); Anion Gap 10 mmol/L (10-20); BUN (Urea Nitrogen) 9 mg/dL (9.8-20.1); BUN/Creatinine Ratio 12.68; Calc. Creatinine Clearance 62 mL/min (70-130); Calcium 8.1 mg/dL (7.8-10.44); Carbon Dioxide 22 mmol/L (23-31); Chloride 107 mmol/L (98-107); Estimated GFR-MDRD 80; Glucose 132 mg/dL (83-110); Iron 28 ug/dL (50-170); Iron Binding Capacity, Total 205 mcg/dL (265-497); Potassium 5.2 mmol/L (3.5-5.1); Sodium 134 mmol/L (136-145)
[2018-11-22 05:35] LABS: Phosphorus 1.8 mg/dL (2.3-4.7)
[2018-11-22 05:39] LABS: Vitamin D, 25 Hydroxy 64.1 ng/ml (> 30.0)
[2018-11-22] MEDS: Pregabalin 25 MG CAP PO SCH ×3 (06:28→21:01)
[2018-11-22 07:10] LABS: Ferritin 148.33 ng/mL (10-291)
[2018-11-22] MEDS ORDERED: Bisacodyl 10 MG SUPP PR PRN (08:52)
--- NOTE | 2018-11-22 08:55 | PDOC.PN ---
- Subjective Encounter Start Date: 11/22/18 Encounter Start Time: 08:54 Subjective: Feeling better and stronger. Complaining of no BM since about 7 days now. -: Denied nause, vomiting or worsening abd pain. - Objective Resuscitation Status - Order Detail: 11/17/18 14:42 Resuscitation Status Routine Resuscitation Status: PRTL: Chem-Intubation Discussed with: Discussed with the patient Vital Signs & Weight: Vital Signs (12 hours) Temp Pulse Resp BP BP BP Pulse Ox 11/22/18 07:20 98.3 F 76 17 146/70 H 97 11/22/18 04:41 79 149/76 H 96 11/22/18 04:00 98 F 83 16 120/54 L 96 11/22/18 00:06 98.1 F 77 16 172/69 H 98 11/21/18 23:30 98 11/21/18 22:39 77 178/70 H 11/21/18 22:21 77 178/70 H 11/21/18 22:16 178/70 H 11/21/18 22:12 178/70 H Weight Admit Weight 130 lb 1.164 oz Weight 130 lb 1.164 oz Most Recent Monitor Data Heart Rate from ECG 77 NIBP 179/69 NIBP BP-Mean 105 Respiration from ECG 22 SpO2 100 I&O: 11/21/18 11/22/18 11/23/18 06:59 06:59 06:59 Intake Total 1896 2428.2 Output Total 1150 1750 Balance 746 678.2 Result Diagrams: 11/21/18 07:21 11/22/18 04:44 Phys Exam - Physical Examination Constitutional: NAD HEENT: moist MMs Neck: no JVD Respiratory: no rales, no rhonchi fair air entry bilaterally Cardiovascular: RRR Gastrointestinal: soft, no distention Left lower quadrant tenderness. R groin wound vac noted Musculoskeletal: no edema, pulses present Neurological: non-focal, moves all 4 limbs Psychiatric: A&O x 3 Dx/Plan (1) Diverticulitis Code(s): K57.92 - DVTRCLI OF INTEST, PART UNSP, W/O PERF OR ABSCESS W/O BLEED Status: Acute (2) DVT (deep venous thrombosis) Code(s): I82.409 - ACUTE EMBOLISM AND THOMBOS UNSP DEEP VN UNSP LOWER EXTREMITY Status: Acute (3) Physical deconditioning Code(s): R53.81 - OTHER MALAISE Status: Acute (4) Acute blood loss anemia Code(s): D62 - ACUTE POSTHEMORRHAGIC ANEMIA Status: Acute Comment: Likely due to Lower GI bleed Patient will benefit from elective colectomy Will follow GI recs Will transfuse when H/H <7 will monitor CBC in the AM (5) Colonic diverticular abscess Code(s): K57.20 - DVTRCLI OF LG INT W PERFORATION AND ABSCESS W/O BLEEDING Status: Acute (6) Sepsis Code(s): A41.9 - SEPSIS, UNSPECIFIED ORGANISM Status: Acute Qualifiers: Sepsis type: sepsis due to unspecified organism Qualified Code(s): A41.9 - Sepsis, unspecified organism Comment: Appears to be GI source with colitis/diverticulitis, continue Zosyn, blood cx pending (7) Atrial fibrillation Code(s): I48.91 - UNSPECIFIED ATRIAL FIBRILLATION Status: Chronic (8) Hypomagnesemia Code(s): E83.42 - HYPOMAGNESEMIA Status: Resolved Comment: Continue Mg++ 128mg BID (9) Constipation Code(s): K59.00 - CONSTIPATION, UNSPECIFIED Status: Acute (10) Iron deficiency Code(s): E61.1 - IRON DEFICIENCY Status: Acute - Plan Dc heparin infusion and start low dose eliquis. -: give dulcolax suppository and start miralax. -: replete body iron and monitor H/h. -: Continue antibiotics and wound care. -: increase activity * .
[2018-11-22] MEDS ORDERED: Bisacodyl 10 MG SUPP PR SCH (09:00)
[2018-11-22] MEDS ORDERED: PHOS-NAK 1 PKT PACK PO SCH (09:00)
[2018-11-22] MEDS: Ipratropium Bromide 0.03% Nasal Inhaler 30 ml Bottle EA NARE SCH ×2 (09:40→21:00)
[2018-11-22] MEDS: Sotalol HCl 80 MG TAB PO SCH ×2 (09:56→20:57)
[2018-11-22] MEDS: Thyroid 60 MG TAB PO SCH (09:56)
[2018-11-22] MEDS: cloNIDine 0.3 MG TAB PO SCH ×3 (09:56→20:56)
[2018-11-22] MEDS: PHOS-NAK 1 PKT PACK PO SCH ×3 (09:56→18:20)
[2018-11-22] MEDS: hydrALAZINE 25 MG TAB PO SCH ×3 (09:57→20:56)
[2018-11-22] MEDS: Lisinopril 20 MG TAB PO SCH ×2 (09:57→20:59)
[2018-11-22] MEDS: Digoxin 0.125 MG TAB PO SCH (09:57)
[2018-11-22] MEDS: Saccharomyces boulardii 250 MG CAP PO SCH (09:57)
[2018-11-22] MEDS: Multivitamin W/ Minerals 1 TAB PO SCH (09:57)
[2018-11-22] MEDS: Metoprolol Tartrate 100 MG TAB PO SCH ×2 (09:57→20:57)
[2018-11-22] MEDS: predniSONE 5 MG TAB PO SCH (09:57)
--- NOTE | 2018-11-22 11:01 | PRG ---
DATE OF SERVICE: 11/22/2018 SUBJECTIVE: Ms. Carrera is postoperative day #4 from the incision and drainage of left groin abscess and drainage of left lower quadrant intraabdominal abscess. She continues to feel well in regard to that. She has some complaints of shortness of breath this morning. She has been started back on her anticoagulation. She seems to be tolerating this well. OBJECTIVE: VITAL SIGNS: On examination, she is afebrile. Pulse 76, blood pressure 146/70. LUNGS: Clear to auscultation. ABDOMEN: Benign. Left groin, wound VAC is intact. LABORATORY DATA: Her comprehensive metabolic panel shows hyperkalemia with potassium level of 5.2. Interestingly, it was 2.8 yesterday. Her electrolytes show minor abnormalities. Culture from her E coli from the left groin revealed that it was pansensitive except to ampicillin. At this point, I will discontinue her Zosyn and start her on Levaquin in anticipation of discharge in the near future. I told that she has been started on Eliquis for anticoagulation in regard to her femoral vein thrombus. Additionally, she is on all oral medications, I think she should be ready for discharge. I have requested case management to look into rehab versus senior care. I believe that she should be stable for discharge tomorrow with a wound VAC in place and on Eliquis and Levaquin. Job ID: [id number]
[2018-11-22] MEDS: Apixaban 2.5 MG TAB PO SCH ×2 (11:33→20:57)
[2018-11-22] MEDS: Iron, Sodium Ferric Gluconate 250 MG in Sodium Chloride 0.9% 100 ML IVPB SCH ×2 (11:33→23:48)
[2018-11-22] MEDS: Polyethylene Glycol 3350 17 GM Packet PO SCH ×2 (11:34→21:01)
[2018-11-22] MEDS ORDERED: Arformoterol 15 MCG/2 ML NEB NEB SCH (13:45)
[2018-11-22] MEDS ORDERED: PROVENTIL INHALER 6.7 G (200 INHALATIONS) INH PRN (13:46)
[2018-11-22] MEDS: HYDROcodone/Acetaminophen 5/325 mg Tablet PO PRN ×2 (14:57→21:08)
--- NOTE | 2018-11-22 15:07 | PRG ---
DATE OF SERVICE: 11/22/2018 SUBJECTIVE: Arabella Carrera feels like she is wheezing. She is in no distress. OBJECTIVE: VITAL SIGNS: She is afebrile. Heart rate 75, respiratory rate 20, oximetry is 99% on 2 L, blood pressure 137/71. LUNGS: Remarkable for end-expiratory wheezes. HEART: Regular rhythm. ABDOMEN: Soft. LABORATORY DATA: Sodium 134, potassium 5.2, chloride 107, bicarb 22, BUN 9, creatinine 0.7. IMPRESSION AND PLAN: Asthma with mild bronchospasm more likely related to retained secretions and bedrest. I will add nebulizer treatments. We will continue with supportive care. Job ID: [id number]
[2018-11-22] MEDS: Arformoterol 15 MCG/2 ML NEB NEB SCH (19:22)
[2018-11-22] MEDS: Rosuvastatin 10 MG TAB PO SCH (20:58)
[2018-11-23 05:40] LABS: Albumin 2.6 g/dL (3.4-4.8); Anion Gap 9 mmol/L (10-20); BUN (Urea Nitrogen) 7 mg/dL (9.8-20.1); BUN/Creatinine Ratio 10.77; Calc. Creatinine Clearance 68 mL/min (70-130); Calcium 8.3 mg/dL (7.8-10.44); Carbon Dioxide 25 mmol/L (23-31); Chloride 102 mmol/L (98-107); Estimated GFR-MDRD 88; Glucose 101 mg/dL (83-110); Magnesium 1.6 mg/dL (1.6-2.6); Phosphorus 3.2 mg/dL (2.3-4.7); Potassium 3.8 mmol/L (3.5-5.1); Sodium 132 mmol/L (136-145)
[2018-11-23] MEDS: Pregabalin 25 MG CAP PO SCH ×2 (05:41→15:23)
[2018-11-23 05:44] LABS: Band 5 % (5-11); Hemoglobin 7.9 g/dL (12.0-16.0); Hypochromia SLIGHT = 6-15 cells (100X) (0-5/hpf); Lymphocytes 39 % (21-51); MDiff Complete? YES; Mean Corpuscular HGB CONC 31.2 g/dL (32.0-36.0); Mean Corpuscular Volume 83.5 fL (78.0-98.0); Monocytes 1 % (0-10); Neutrophil 55 % (42-75); Platelet Count 318 thou/uL (130-400); Platelet Morphology Comment Appears Adequate; RBC Distribution Width 16.7 % (11.5-14.5); Red Blood Cell (RBC) Count 3.04 mill/uL (4.20-5.40); White Blood Cell (WBC) Count 10.5 thou/uL (4.8-10.8)
[2018-11-23 07:35] VITALS: TEMP 98.2
[2018-11-23] MEDS: Arformoterol 15 MCG/2 ML NEB NEB SCH (07:41)
[2018-11-23] MEDS: Sotalol HCl 80 MG TAB PO SCH (09:09)
[2018-11-23] MEDS: Polyethylene Glycol 3350 17 GM Packet PO SCH (09:10)
[2018-11-23] MEDS: PHOS-NAK 1 PKT PACK PO SCH ×2 (09:10→15:23)
[2018-11-23] MEDS: Thyroid 60 MG TAB PO SCH (09:11)
[2018-11-23] MEDS: predniSONE 5 MG TAB PO SCH (09:11)
[2018-11-23] MEDS: Lisinopril 20 MG TAB PO SCH (09:11)
[2018-11-23] MEDS: Multivitamin W/ Minerals 1 TAB PO SCH (09:11)
[2018-11-23] MEDS: Metoprolol Tartrate 100 MG TAB PO SCH (09:12)
[2018-11-23] MEDS: cloNIDine 0.3 MG TAB PO SCH ×2 (09:12→15:20)
[2018-11-23] MEDS: Saccharomyces boulardii 250 MG CAP PO SCH (09:12)
[2018-11-23] MEDS: hydrALAZINE 25 MG TAB PO SCH ×2 (09:13→15:21)
[2018-11-23] MEDS: Digoxin 0.125 MG TAB PO SCH (09:13)
[2018-11-23] MEDS: Ipratropium Bromide 0.03% Nasal Inhaler 30 ml Bottle EA NARE SCH (09:21)
[2018-11-23] MEDS: HYDROcodone/Acetaminophen 5/325 mg Tablet PO PRN ×2 (09:45→15:21)
--- NOTE | 2018-11-23 09:58 | PRG ---
DATE OF SERVICE: 11/23/2018 SUBJECTIVE: Arabella Lozoya has no new complaints. She is having intermittent back muscle spasm, but other than that, says she is feeling reasonably well. She wants to go home. OBJECTIVE: VITAL SIGNS: She is afebrile. Heart rate 75; respiratory rate 16; oximetry is 97% on 2 L; blood pressure early was 155/72; at 7:30, 184/76. LUNGS: Clear. She is not wheezing. HEART: Regular rhythm. ABDOMEN: Soft. IMPRESSION AND PLAN: Asthma with retained secretions. It was mildly an issue, but is not now. From a discharge standpoint, I think she is stable respiratory higgins. The wound care is an issue, and I am not sure, this can be done at home, although she thinks she can. Dr. Alfonso will make those recommendations. We will follow if she stays in the hospital for her asthma. Job ID: [id number]
[2018-11-23] MEDS: Apixaban 2.5 MG TAB PO SCH (10:05)
[2018-11-23 10:57] VITALS: BP 137/62
--- NOTE | 2018-11-23 22:44 | DIS ---
DATE OF ADMISSION: 11/17/2018 DATE OF DISCHARGE: 11/23/2018 DISCHARGE DIAGNOSES: 1. Acute diverticulitis with perforation, status post incision and drainage with abdominal drain. 2. 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 3. Sepsis secondary to #1, resolving. 4. Constipation. 5. Physical deconditioning. 6. Left common femoral vein deep venous thrombosis treated with Eliquis. CONSULTATIONS: 1. Dr. Alfonso with General Surgery Service. 2. Dr. Sunday Mc with Infectious Disease Service. 3. Dr. Thomson with Pulmonology Critical Care Service. PERTINENT LAB AND X-RAY FINDINGS: Potassium ranged between 2.8 to 5.2. Lactic acid level ranged between 1.0 to 2.7. Phosphorus ranged between 1.8 to 3.2, magnesium level ranged between 1.4 to 1.6. Serum iron level 28, TIBC 205, percent saturation 14, ferritin 148. Albumin level 3.4. CBC showed a white blood cell count ranging between 7.0 to 32.5, hemoglobin ranged between 7.7 to 12.3. Wound culture dated 11/18/2018, positive for E coli and bacteroides thetaiotaomicron. CT of the abdomen and pelvis dated 11/17/2018, showed contained perforation of the antimesenteric side of the sigmoid colon extending to the inguinal canal. Contained perforation from prior diverticulitis of the descending colon containing gas without significant stranding. Filling defect of the left common femoral vein. Left lower extremity venous Doppler study dated 11/17/2018 showed nonocclusive deep venous thrombosis in the left common femoral vein. HOSPITAL COURSE: The patient was initially admitted after presenting with severe abdominal pain with CT imaging of the abdomen and pelvis showing evidence of recurrent diverticular abscess and questionable perforation. The patient underwent evaluation by the General Surgery Service, ultimately undergoing incision and drainage of the left lower quadrant intraabdominal abscess with placement of intraabdominal drain on 11/18/2018. The patient also underwent evaluation and treatment including incision and drainage of a left groin abscess secondary to sigmoid colon perforation. The patient continued on broad-spectrum IV antibiotic therapy throughout the hospital course and received local wound care. The patient clinically stabilized with aggressive supportive intervention including IV antibiotics and drainage of the abscess. The patient converted from IV antibiotics to Levaquin to complete antibiotic coverage after discharge. The patient clinically stabilized with supportive management and remained afebrile over the last 48 to 72 hours. I have examined the patient at the time of discharge and discussed followup instructions. The patient verbalized understanding and in agreement and ready for discharge on 11/23/2018. DISCHARGE MEDICATIONS: 1. Clonidine 0.3 mg p.o. t.i.d. 2. Flexeril 5 mg p.o. t.i.d. p.r.n. 3. Dicyclomine 20 mg p.o. q.6 hours p.r.n. 4. Digoxin 0.125 mg p.o. daily. 5. Lasix 20 mg p.o. daily. 6. Hydralazine 100 mg p.o. t.i.d. 7. Levsin 0.125 mg p.o. q.4 hours p.r.n. 8. Isosorbide mononitrate 30 mg p.o. b.i.d. 9. Lisinopril 20 mg p.o. b.i.d. 10. Metoprolol 100 mg p.o. b.i.d. 11. Multivitamin 1 tablet p.o. daily. 12. Nitroglycerin 0.4 mg sublingually q.5 minutes p.r.n. chest pain. 13. Protonix 40 mg p.o. daily. 14. Prednisone 10 mg p.o. daily. 15. Crestor 10 mg p.o. at bedtime. 16. Florastor 250 mg p.o. daily. 17. Betapace 120 mg p.o. b.i.d. 18. [place] Thyroid 60 mg p.o. q.a.m. 19. Eliquis 2.5 mg p.o. b.i.d. FOLLOWUP: The patient will follow up with Dr. Tim within 7 days of discharge. The patient will follow up with Dr. Alfonso within 10 days of discharge. CONDITION ON DISCHARGE: Stable. ACTIVITY: Ad-kike. DIET: Heart healthy. SPECIAL INSTRUCTIONS: The patient will receive home health services with dressing changes and wound vacuum management through [facility]. CODE STATUS: Chemical intubation only. DISPOSITION: Discharged home, 11/23/2018. Job ID: [id number]
== END 2018-11-23 15:45 | disposition home health service (06) | DRG 854 ==
LOC: ERS 10:01 → IMCU/EMU 13:20 → SURG A 11-21 23:35
PROVIDERS: ADMIT Internal Medicine; ATTEND Internal Medicine
PROC: 0W9G0ZZ Drainage of Peritoneal Cavity, Open Approach (ICD-10-PCS; principal; 2018-11-18)
PROC: 0J9C0ZZ Drainage of Pelvic Region Subcutaneous Tissue and Fascia, Open Approach (ICD-10-PCS; 2018-11-18)
DX: A41.9 Sepsis, unspecified organism (principal); I82.412 Acute embolism and thrombosis of left femoral vein; E87.1 Hypo-osmolality and hyponatremia; I50.32 Chronic diastolic (congestive) heart failure; K57.20 Diverticulitis of large intestine with perforation and abscess without bleeding; D62 Acute posthemorrhagic anemia; L02.214 Cutaneous abscess of groin; E03.9 Hypothyroidism, unspecified; I11.0 Hypertensive heart disease with heart failure; J44.9 Chronic obstructive pulmonary disease, unspecified; E78.5 Hyperlipidemia, unspecified; K21.9 Gastro-esophageal reflux disease without esophagitis; M35.00 Sjogren syndrome, unspecified; M19.90 Unspecified osteoarthritis, unspecified site; M79.7 Fibromyalgia; I48.2 Chronic atrial fibrillation; B96.20 Unspecified Escherichia coli [E. coli] as the cause of diseases classified elsewhere; J45.909 Unspecified asthma, uncomplicated; J00 Acute nasopharyngitis [common cold]; E83.42 Hypomagnesemia; K59.00 Constipation, unspecified; Z90.89 Acquired absence of other organs; Z88.8 Allergy status to other drugs, medicaments and biological substances; Z79.82 Long term (current) use of aspirin; Z79.899 Other long term (current) drug therapy; Z90.710 Acquired absence of both cervix and uterus; Z98.49 Cataract extraction status, unspecified eye; Z88.5 Allergy status to narcotic agent
CPT/HCPCS: 36415; 74177; 80048; 80053; 80069; 82306; 82553; 82728; 83540; 83550; 83605; 83690; 83735; 84484; 85014; 85018; 85025; 85049; 85610; 85730; 87070; 87076; 87077; 87186; 87205; 93005; 94640; 96361; 96365; 96367; 96375; 96376; J0360; J1170; J1644; J1720; J2001; J2270; J2405; J2543; J2704; J2916; J3010; J3475; J3490; J7050; J7512; Q0163; Q9966

== ENCOUNTER 2019-01-03 01:14 | Inpatient (IN) | payer MEDICARE, BC ==
[2019-01-03 02:09] LABS: #Eosinphils 0.1 thou/uL (0.0-0.7); #Lymphocytes 2.7 thou/uL (1.20-3.40); #Monocytes 0.5 thou/uL (0.11-0.59); #Neutrophils 13.4 thou/uL (1.40-6.50); %Basophils 0.1 % (0.0-1.0); %Eosinophils 0.7 % (0.0-10.0); %Monocytes 2.8 % (0.0-10.0); %Neutrophils 80.4 % (42.0-75.0); Hemoglobin 13.3 g/dL (12.0-16.0); Mean Corpuscular HGB CONC 33.5 g/dL (32.0-36.0); Mean Corpuscular Hemoglobin 29.7 pg (27.0-31.0); Mean Corpuscular Volume 88.6 fL (78.0-98.0); Mean Platelet Volume 7.4 fL (7.4-10.4); Platelet Count 310 thou/uL (130-400); RBC Distribution Width 16.6 % (11.5-14.5); Red Blood Cell (RBC) Count 4.49 mill/uL (4.20-5.40); White Blood Cell (WBC) Count 16.7 thou/uL (4.8-10.8)
[2019-01-03 02:33] LABS: ALT (SGPT) 22 U/L (8-55); AST (SGOT) 21 U/L (5-34); Albumin 3.8 g/dL (3.4-4.8); Alkaline Phosphatase 96 U/L (40-150); Anion Gap 16 mmol/L (10-20); BUN (Urea Nitrogen) 17 mg/dL (9.8-20.1); Bilirubin, Total 0.5 mg/dL (0.2-1.2); Calc. Creatinine Clearance 0 mL/min (70-130); Calcium 10.2 mg/dL (7.8-10.44); Carbon Dioxide 21 mmol/L (23-31); Chloride 98 mmol/L (98-107); Estimated GFR-MDRD 64; Globulin 3.6 g/dL (2.4-3.5); Glucose 243 mg/dL (83-110); Protein, Total 7.4 g/dL (6.0-8.3); Sodium 131 mmol/L (136-145)
[2019-01-03] MEDS ORDERED: cloNIDine 0.1 MG TAB ONE (05:15)
--- NOTE | 2019-01-03 08:37 | CT ---
CT ABDOMEN AND PELVIS WITH CONTRAST: COMPARISON: 11/17/2018. INDICATION: Emergency exam performed for pain, infection. FINDINGS: No acute abnormality is seen at the imaged lung bases. The solid abdominal organs are stable. Contr ast-opacified small bowel is normal in caliber. The colon is diffusely unopacified with scattered ar eas of colonic wall prominence and pericolonic stranding. There is no pneumoperitoneum or portal vei n gas. Diffuse vascular disease is present. There has been interval resolution of prior fluid and a ir collection of the ventral left pelvis with mild residual density remaining in this region indicati ve of a scar. There is diffuse osseous demineralization with multiple compression deformities as wel l as areas of prior vertebroplasty throughout the visualized spine. IMPRESSION: 1. Findings indicative of colitis. This could be infectious/inflammatory, or ischemic. Recommend c linical correlation in this regard. 2. Interval resolution of prior prominent-sized fluid and air collection of the ventral left pelvis, with residual scar of this region. POS: ARPITA
[2019-01-03] MEDS ORDERED: Dicyclomine 20 MG TAB PO PRN (09:33)
[2019-01-03] MEDS ORDERED: Nitroglycerin 0.4 MG TAB (25 Tab Bottle) SL PRN (09:33)
[2019-01-03] MEDS ORDERED: Dextrose 50% Abboject 50 ML SYRINGE SLOW IVP PRN (09:37)
[2019-01-03] MEDS ORDERED: Dextrose 5% in Water 1,000 ML IV PRN (09:37)
[2019-01-03] MEDS ORDERED: cloNIDine 0.3 MG TAB PO SCH (10:30)
[2019-01-03] MEDS ORDERED: hydrALAZINE 25 MG TAB PO SCH (10:30)
[2019-01-03] MEDS ORDERED: Isosorbide Mononitrate (ER) 30 MG TAB PO SCH (10:30)
[2019-01-03] MEDS ORDERED: Digoxin 0.125 MG TAB PO SCH (10:30)
[2019-01-03] MEDS ORDERED: Lisinopril 20 MG TAB PO SCH (10:30)
--- NOTE | 2019-01-03 10:45 | HP ---
CHIEF COMPLAINTS: Abdominal pain and stool coming out from her abdominal wound. HISTORY OF PRESENT ILLNESS: The patient is a 78-year-old female with very significant past surgical history in the last several months after she developed perforated diverticulitis. She had multiple admissions to the hospital for a management of complication of that problem. She had an abscess which was managed by Dr. Alfonso, who originally did operation for her perforated diverticulitis. She developed some abdominal pain associated with some nausea and vomiting yesterday. There was no any blood or black tarry stools. She is constipated quite often. She denied any fever or chills. Her primary care physician is Dr. Tim, and surrogate decision maker, her son, Luis Armando Lozoya. Her past medical history is also positive for multiple medical problems. PAST MEDICAL HISTORY: 1. Sjogren syndrome. 2. Paroxysmal atrial fibrillation. 3. Hypothyroidism. 4. Hyperlipidemia. 5. Hypertension. 6. Osteoarthritis. 7. UT, January 2018. 8. Fibromyalgia. PAST SURGICAL HISTORY: 1. Right ovary x2. 2. Cardiac ablations x2. 3. Cholecystectomy. 4. Hysterectomy. 5. Thyroidectomy. 6. L3-L4 surgery. 7. Watchman device placement. 8. Pacemaker. 9. Back surgery x2, L3 and T8 area. SOCIAL HISTORY: She denies any alcohol intake, cigarette smoking, or illicit drug use. FAMILY HISTORY: Mother was 75 when she from cerebral hemorrhage. Father was 80 and he of lung cancer. ALLERGIES: NORVASC. CURRENT MEDICATIONS: 1. [place] Thyroid 60 mg once a day. 2. Potassium chloride 20 mEq one tablet twice a day. 3. Metoprolol 25 mg twice a day. 4. Clonidine 0.3 mg three times a day. 5. Omeprazole 20 mg once a day. 6. Dicyclomine 10 mg every 6 hours p.r.n. as needed. 7. Hydralazine 100 mg 3 times a day. 8. Lisinopril 20 mg twice a day. 9. Sotalol 80 mg twice a day. 10. Isosorbide mononitrate 60 mg once a day. 11. Digoxin 125 mcg once a day. 12. Prednisone 15 mg once a day. 13. Zyrtec 10 mg once a day. 14. Albuterol p.r.n. as needed. 15. Vitamin D3 50,000 units once a week. 16. Magnesium supplementation. The dose is unknown. 17. Eliquis 5 mg twice a day. REVIEW OF SYSTEMS: CONSTITUTIONAL: Negative for fever or chills. EYES: Negative for eye pain and eye discharge. ENT: Negative for nasal congestion and epistaxis. CARDIOVASCULAR: Negative for chest pain and palpitations. RESPIRATORY: Positive for some shortness of breath on exertion. GI: Positive for abdominal pain and some diarrhea. MUSCULOSKELETAL: Positive for muscular pain on and off in whole body. NEUROLOGICAL: Negative for headache. ENDOCRINE: Negative for polydipsia, polyuria. HEME/LYMPHATIC: Negative for easy bruising or clotting abnormalities. PSYCHIATRIC: Negative for suicidal or homicidal ideations. PHYSICAL EXAMINATION: GENERAL: She is not in significant distress at the time of my visit. VITAL SIGNS: Her blood pressure is 191/76, pulse is 91, respiratory rate is 18, temperature is 98.5, O2 saturation is 96% on room air. HEENT: Head, atraumatic and normocephalic. Eyes are PERRLA. Sclerae are nonicteric. Oral mucosa is moist. NECK: Supple. LUNGS: Clear. HEART: S1 and S2 regular. No S3. No S4. ABDOMEN: Soft, slightly tender in the left part of the abdomen. No guarding. No masses. There is a wound in the left lower quadrant with some small drainage coming out from that wound. Bowel sounds are present. EXTREMITIES: No clubbing, cyanosis, or edema. NEUROLOGICAL: She is alert and oriented x4. There is no any motor or sensory deficit present. Cranial nerves are intact. LABORATORY DATA: White count of 16.7, hemoglobin of 13.3, hematocrit 39.8, platelet count 310. Sodium 131, potassium 4.0, chloride 98, CO2 of 21, BUN is 17, creatinine 0.86, glucose 243, globulin 3.6. IMAGING STUDIES: CT of the abdomen, personally reviewed by me, showed a finding indicative of colitis of unclear etiology at this point. EKG personally reviewed by me showed sinus rhythm with first-degree AV block and Q-wave in V3, which is suggestive of probably some old infarction with mild depression of the ST-segment V4 through V6. IMPRESSION: 1. Abdominal pain with some diarrhea and findings consistent with colitis on the CT. We will check her stool. We will start her on antibiotics. We will have Dr. Alfonso consulted since he knows her very well. 2. Colocutaneous fistula. 3. Sjogren syndrome. 4. Hyperglycemia most likely secondary to prednisone use. 5. History of atrial fibrillation. 6. Hypothyroidism. 7. Hyperlipidemia. 8. Hypertension. 9. History of myocardial infarction. 10. History of congestive heart failure. 11. History of chronic obstructive pulmonary disease. 12. Chronic diastolic heart failure. PLAN: Admission, full. Condition, fair. Admission to surgical floor. Diet n.p.o., except medications until the patient is seen by Dr. Alfonso. IV normal saline at 50 mL/h. Stool cultures. Start Cipro and Flagyl for possible infectious etiology of her colitis. Continue her blood pressure medications. Hold Eliquis until the patient is seen by Dr. Alfonso again, make decision whether he is going to do anything surgically. We will do sliding scale with mild dose of Humalog and Accu-Cheks a.c. q.6 hours. Job ID: [id number]
[2019-01-03 10:58] VITALS: BMI 26.1
[2019-01-03] MEDS: Piperacillin/Tazobactam 3.375 GM in Sodium Chloride 0.9% 100 ML IVPB SCH ×2 (11:41→17:48)
[2019-01-03] MEDS: Sodium Chloride 0.9% 1,000 ML IV SCH (11:42)
[2019-01-03] MEDS: Aspirin 81 mg Enteric Coated Tablet PO SCH ×2 (11:44→12:23)
[2019-01-03] MEDS ORDERED: GoLYTELY 4,000 ml Bottle PO SCH (13:30)
[2019-01-03] MEDS: metroNIDAZOLE 500 MG in Premix Bag 1 BAG IVPB SCH ×2 (16:03→21:55)
[2019-01-03] MEDS: hydrALAZINE 25 MG TAB PO SCH ×2 (16:04→21:14)
[2019-01-03] MEDS: cloNIDine 0.3 MG TAB PO SCH ×2 (16:04→21:14)
[2019-01-03] MEDS ORDERED: ISOVUE-370 76%-LOCM 1 ML ONE (16:09)
[2019-01-03] MEDS: HumaLOG 300 UNITS/3 ML VIAL SC PRN (18:46)
--- NOTE | 2019-01-03 20:36 | CON ---
DATE OF CONSULTATION: 01/03/2019 CHIEF COMPLAINT: Stool drainage from left lower abdominal wound (colocutaneous fistula). HISTORY OF PRESENT ILLNESS: The patient is a 78-year-old white female. She is well known to myself from multiple episodes of care. I initially saw her in October of 2017, when she had diverticulitis with microperforation. She required a laparoscopic washout at that time, from which she recuperated nicely. She was felt to eventually require a colon resection, but over the past year, she has had multiple issues that have kept her from proceeding with any elective surgery. She has had back surgery and heart problems and has been hospitalized on several occasions. In November (a little over a month ago), she was admitted to the hospital and found to have a recurrent left lower quadrant abscess associated with her diverticulitis and this had eroded through the abdominal wall, associated with she had a left groin abscess as well. At that time, I performed a drainage of her groin abscess, I was also able to drain the intraabdominal abscess through the same opening. She had wound care and her wound was healing appropriately. She did not have any feculent drainage at that time, suggesting that her diverticular perforation had sealed. She was discharged home and has been undergoing wound care for her open left groin wound with wound VAC. I was notified that there was foul drainage yesterday. Apparently, she developed some diarrhea and last night, she had a large volume of diarrhea both per rectum and per the left groin wound. She was brought in this morning for evaluation in light of the heavy feculent drainage from the wound. She was seen in the emergency room. A CT scan was obtained. This shows resolution of the intraabdominal abscess. Only because I know that she is draining stool, I able to see the tract extending from the sigmoid colon to the anterior abdominal wall in the left lower quadrant that is clearly the source of her fistula. She denies any current pain and her abdomen is unremarkable. She has been eating well and has had no vomiting. Her laboratory studies at the time of admission reveal elevated white blood cell count of 16.7, hemoglobin is 13.3. Chemistry profile reveals sodium is a little bit low and glucose is a little bit high. She is currently in no acute distress and is alert. PAST MEDICAL HISTORY: 1. History of recurrent constipation. 2. Diverticular disease with multiple episodes of diverticulitis with at least 3 episodes of diverticular perforation. 3. Sjogren syndrome (requiring chronic steroids). 4. Atrial fibrillation. 5. Chronic diastolic heart dysfunction. 6. Hypertension. 7. Hypothyroidism. 8. Gastroesophageal reflux disease. PAST SURGICAL HISTORY: 1. Thyroidectomy. 2. Hysterectomy. 3. Appendectomy. 4. Cataract surgery. 5. Cholecystectomy. 6. Ablation procedure for atrial fibrillation. 7. Watchman procedure. 8. Back surgery with kyphoplasty. 9. Laparoscopic washout of perforated diverticulitis in October 2017. 10. Pacemaker placement in March 2018. 11. Multilevel back surgery per Dr. Hairston in June 2018. 12. Percutaneous drainage of diverticular abscess in June 2018. 13. Open drainage of left groin abscess and intraabdominal left lower quadrant abscess in October of 2018. ALLERGIES: AMLODIPINE, MORPHINE, MESALAMINE, AND GABAPENTIN. MEDICATIONS: Numerous and continue to include prednisone. See list per Dr. Thompson. PERSONAL AND SOCIAL HISTORY: She does not smoke. Does not drink alcohol. She has a child, who is now present at bedside currently. PHYSICAL EXAMINATION: VITAL SIGNS: She is afebrile with normal vital signs currently. She is a little hypertensive with a blood pressure of 184 systolic. HEAD, EYES, EARS, NOSE, AND THROAT: Unremarkable. NECK: Supple. LUNGS: Clear to auscultation. CARDIAC: Regular rate and rhythm. ABDOMEN: Soft, nontender, and nondistended. She has a gauze dressing in her left lower quadrant wound currently. She still has a non-healed wound on her back and has a gauze dressing over this. EXTREMITIES: Unremarkable. LABORATORY DATA: As mentioned above. ASSESSMENT: The patient with colocutaneous fistula from perforated diverticulitis. PLAN: I had told her at the last visit that I felt that she was going to benefit from a colostomy. Given her extraordinarily poor healing capability, I would recommend against a colon resection with anastomosis as I think she is at high risk for leaking. Instead, I recommend a transverse colostomy. Since she is not obstructed distally, I do not believe she will require a mucous fistula and I would therefore probably plan on performing this as an end-colostomy either in the right upper or left upper abdomen. I discussed this in detail with the patient. She understands and agrees to proceed. This will be scheduled for tomorrow. She will be able to receive clear liquids for today and I will give her a bowel prep. She really does not need antibiotics as I do not plan an anastomosis. Job ID: [id number]
[2019-01-03] MEDS: Isosorbide Mononitrate (ER) 30 MG TAB PO SCH (21:13)
[2019-01-03] MEDS: Sotalol HCl 80 MG TAB PO SCH (21:13)
[2019-01-03] MEDS: Lisinopril 20 MG TAB PO SCH (21:13)
[2019-01-03] MEDS: Metoprolol Tartrate 25 MG TAB PO SCH (21:15)
[2019-01-04] MEDS: Piperacillin/Tazobactam 3.375 GM in Sodium Chloride 0.9% 100 ML IVPB SCH ×2 (00:16→05:59)
[2019-01-04 05:38] LABS: #Eosinphils 0.1 thou/uL (0.0-0.7); #Lymphocytes 2.2 thou/uL (1.20-3.40); #Monocytes 0.9 thou/uL (0.11-0.59); #Neutrophils 12.2 thou/uL (1.40-6.50); %Basophils 0.2 % (0.0-1.0); %Eosinophils 0.6 % (0.0-10.0); %Lymphocytes 14.2 % (21.0-51.0); %Monocytes 5.5 % (0.0-10.0); %Neutrophils 79.4 % (42.0-75.0); Hemoglobin 10.6 g/dL (12.0-16.0); Mean Corpuscular HGB CONC 33.1 g/dL (32.0-36.0); Mean Corpuscular Hemoglobin 29.6 pg (27.0-31.0); Mean Corpuscular Volume 89.4 fL (78.0-98.0); Mean Platelet Volume 7.4 fL (7.4-10.4); Platelet Count 255 thou/uL (130-400); RBC Distribution Width 16.6 % (11.5-14.5); Red Blood Cell (RBC) Count 3.58 mill/uL (4.20-5.40); White Blood Cell (WBC) Count 15.4 thou/uL (4.8-10.8)
[2019-01-04 06:01] LABS: Anion Gap 13 mmol/L (10-20); BUN (Urea Nitrogen) 12 mg/dL (9.8-20.1); Calc. Creatinine Clearance 58 mL/min (70-130); Calcium 8.6 mg/dL (7.8-10.44); Carbon Dioxide 24 mmol/L (23-31); Chloride 100 mmol/L (98-107); Estimated GFR-MDRD 80; Glucose 124 mg/dL (83-110); Potassium 3.4 mmol/L (3.5-5.1); Sodium 134 mmol/L (136-145)
[2019-01-04] MEDS: metroNIDAZOLE 500 MG in Premix Bag 1 BAG IVPB SCH (06:04)
[2019-01-04] MEDS: Sodium Chloride 0.9% 1,000 ML IV SCH ×2 (06:05→18:35)
[2019-01-04] MEDS ORDERED: Metoclopramide HCl 10 MG/2 ML VIAL IVP SCH (08:45)
[2019-01-04] MEDS ORDERED: Aspirin 81 mg Enteric Coated Tablet PO SCH (09:00)
[2019-01-04] MEDS: Sotalol HCl 80 MG TAB PO SCH ×2 (09:12→20:31)
[2019-01-04] MEDS: Thyroid 60 MG TAB PO SCH (09:13)
[2019-01-04] MEDS: Isosorbide Mononitrate (ER) 30 MG TAB PO SCH ×2 (09:13→20:32)
[2019-01-04] MEDS: Lisinopril 20 MG TAB PO SCH ×2 (09:13→21:33)
[2019-01-04] MEDS: Digoxin 0.125 MG TAB PO SCH (09:13)
[2019-01-04] MEDS: cloNIDine 0.3 MG TAB PO SCH ×3 (09:13→20:32)
[2019-01-04] MEDS: hydrALAZINE 25 MG TAB PO SCH ×3 (09:14→21:33)
[2019-01-04] MEDS: predniSONE 5 MG TAB PO SCH (09:14)
[2019-01-04] MEDS: Metoprolol Tartrate 25 MG TAB PO SCH ×2 (09:14→20:31)
[2019-01-04] MEDS: Saccharomyces boulardii 250 MG CAP PO SCH (09:15)
--- NOTE | 2019-01-04 11:07 | PRG ---
DATE OF SERVICE: 01/04/2019 SUBJECTIVE: The patient is seen and examined at the bedside. She is getting ready for her surgery by Dr. Alfonso at 0130 hours. She had several bowel movements last night, but she is still getting GoLYTELY, so most likely this is contributing to her frequent bowel movements. She does not have much complaints to offer. Not much abdominal pain. OBJECTIVE: VITAL SIGNS: Blood pressure is 147/63, pulse is 73, respiratory rate is 16, and O2 saturation is 96% on room air. GENERAL: She looks tired and is somewhat exhausted. HEENT: Head is atraumatic and normocephalic. Conjunctivae are palish. Oral mucosa is slightly dry. NECK: Supple. Thyroid is not palpable. LUNGS: Clear. HEART: S1 and S2 normal. No S3. No S4. ABDOMEN: Soft, nontender. No guarding. No masses. EXTREMITIES: No clubbing, cyanosis, or edema. NEUROLOGIC: She is alert and oriented x4. There is no any motor deficit. LABORATORY DATA: Labs showed white count of 15.4, hemoglobin 10.6, hematocrit 32.0, platelet count 255,000. Sodium of 134, potassium 3.4, chloride 100, CO2 of 24, BUN 12, creatinine 0.71. Glycemia is ranging from 130 to 291. Microbiology, stool is positive for Clostridium difficile antigen. Stool lactoferrin came back with elevated level. IMPRESSION: 1. Clostridium difficile colitis. We will stop her Flagyl and Zosyn. Start her on vancomycin orally. 2. 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 The patient is going to have colostomy today by Dr. Alfonso. 3. Sjogren syndrome. 4. Hyperglycemia. We will use sliding scale most likely she developed some diabetes from her prednisone use. 5. History of atrial fibrillation, currently in sinus rhythm. 6. Hypothyroidism. 7. Hyperlipidemia. 8. Hypertension. 9. History of myocardial infarction. 10. History of congestive heart failure. 11. History of chronic obstructive pulmonary disease. 12. Chronic diastolic heart failure. PLAN: As mentioned above. Current IV antibiotics, Zosyn and Flagyl. Start vancomycin orally every 6 hours. She is going to have surgery per Dr. Alfonso' recommendations. We will still hold Eliquis until the surgeon makes decision when she can start taking and Accu-Cheks will be done every 6 hours and mild sliding scale will be used to cover. Job ID: [id number]
[2019-01-04] MEDS ORDERED: Midazolam HCl 2 mg/2 ml Vial ONE (13:05)
[2019-01-04] MEDS ORDERED: Fentanyl 100 MCG/2 ML VIAL ONE ×4 (13:05→17:24)
[2019-01-04] MEDS: Vancomycin HCl 25 MG/ML Oral PO SCH ×3 (14:08→23:28)
[2019-01-04] MEDS ORDERED: Bupivacaine/Epinephrine 0.25% 30 ML VIAL ONE (14:18)
[2019-01-04] MEDS ORDERED: Phenylephrine HCL 10 MG/ML VIAL ONE ×2 (14:42→14:51)
[2019-01-04] MEDS ORDERED: cefOXitin 2 GM VIAL ONE (15:14)
[2019-01-04] MEDS ORDERED: Bupivacaine HCl 0.5%/Epinephrine 1:200,000/PF 30 ml Vial ONE (15:34)
[2019-01-04] MEDS ORDERED: Rocuronium Bromide 10 MG/ML (10ML VIAL) ONE (16:05)
[2019-01-04] MEDS ORDERED: Esmolol 100 MG/10 ML VIAL ONE (16:05)
[2019-01-04] MEDS ORDERED: PROPOFOL 200 MG/20 ML VIAL ONE (16:05)
[2019-01-04] MEDS ORDERED: Lidocaine 1% PF 5 ML VIAL ONE (16:05)
[2019-01-04] MEDS ORDERED: Glycopyrrolate 0.2 MG/ML 5 ML SYRINGE ONE (16:05)
[2019-01-04] MEDS ORDERED: Ondansetron PF 4 MG/2 ML Vial ONE (16:05)
[2019-01-04] MEDS ORDERED: Labetalol HCl 100 MG/20 ML VIAL ONE (16:48)
[2019-01-04] MEDS ORDERED: SUGAMMADEX SODIUM 500 MG/5 ML VIAL ONE (16:49)
[2019-01-04] MEDS ORDERED: Promethazine HCl 25 MG/ML VIAL SLOW IVP PRN (16:59)
[2019-01-04] MEDS ORDERED: PACU-Morphine 4MG/ML VIAL SLOW IVP PRN (16:59)
[2019-01-04] MEDS ORDERED: Promethazine HCl 25 MG/ML VIAL IM PRN (16:59)
[2019-01-04] MEDS ORDERED: Ondansetron HCl/PF 4 MG/2 ML Vial IVP PRN (16:59)
[2019-01-04] MEDS ORDERED: Promethazine HCl 25 MG/ML VIAL ONE (17:09)
[2019-01-04] MEDS ORDERED: hydrALAZINE 20 MG/ML VIAL ONE (17:25)
[2019-01-04] MEDS ORDERED: Morphine 4 MG/ML VIAL SLOW IVP PRN (17:53)
[2019-01-04] MEDS ORDERED: Morphine 2 MG/ML SYRINGE SLOW IVP PRN (17:53)
[2019-01-04] MEDS ORDERED: Ondansetron PF 4 MG/2 ML Vial SLOW IVP PRN (18:54)
[2019-01-04] MEDS ORDERED: Simethicone Chewable 80 MG TAB PO SCH (21:00)
[2019-01-04] MEDS: cefOXitin Sodium 1 GM in Sodium Chloride 0.9% 100 ML IVPB SCH (21:34)
[2019-01-04] MEDS: HumaLOG 300 UNITS/3 ML VIAL SC PRN (22:30)
[2019-01-04] MEDS: HYDROcodone/Acetaminophen 7.5/325 mg Tablet PO PRN (23:29)
[2019-01-05] MEDS ORDERED: Labetalol HCl 100 MG/20 ML VIAL SLOW IVP PRN (00:20)
[2019-01-05] MEDS: cefOXitin Sodium 1 GM in Sodium Chloride 0.9% 100 ML IVPB SCH ×4 (02:47→21:02)
[2019-01-05 04:17] LABS: #Eosinphils 0.1 thou/uL (0.0-0.7); #Lymphocytes 2.6 thou/uL (1.20-3.40); #Monocytes 0.8 thou/uL (0.11-0.59); #Neutrophils 7.5 thou/uL (1.40-6.50); %Eosinophils 1.1 % (0.0-10.0); %Lymphocytes 23.9 % (21.0-51.0); %Monocytes 6.9 % (0.0-10.0); %Neutrophils 68.1 % (42.0-75.0); Hemoglobin 9.3 g/dL (12.0-16.0); Mean Corpuscular HGB CONC 33.5 g/dL (32.0-36.0); Mean Corpuscular Hemoglobin 30.5 pg (27.0-31.0); Mean Platelet Volume 7.1 fL (7.4-10.4); Platelet Count 221 thou/uL (130-400); RBC Distribution Width 16.6 % (11.5-14.5); Red Blood Cell (RBC) Count 3.05 mill/uL (4.20-5.40)
[2019-01-05 04:35] LABS: Anion Gap 11 mmol/L (10-20); BUN (Urea Nitrogen) 6 mg/dL (9.8-20.1); Calc. Creatinine Clearance 59 mL/min (70-130); Calcium 7.5 mg/dL (7.8-10.44); Carbon Dioxide 23 mmol/L (23-31); Chloride 103 mmol/L (98-107); Estimated GFR-MDRD 81; Glucose 92 mg/dL (83-110); Sodium 134 mmol/L (136-145)
[2019-01-05] MEDS: HYDROcodone/Acetaminophen 7.5/325 mg Tablet PO PRN ×4 (04:40→21:01)
[2019-01-05] MEDS: Vancomycin HCl 25 MG/ML Oral PO SCH ×3 (05:56→17:19)
[2019-01-05] MEDS: hydrALAZINE 25 MG TAB PO SCH ×3 (09:25→20:58)
[2019-01-05] MEDS: Isosorbide Mononitrate (ER) 30 MG TAB PO SCH ×2 (09:25→21:00)
[2019-01-05] MEDS: Saccharomyces boulardii 250 MG CAP PO SCH (09:25)
[2019-01-05] MEDS: cloNIDine 0.3 MG TAB PO SCH ×3 (09:25→21:00)
[2019-01-05] MEDS: Sotalol HCl 80 MG TAB PO SCH ×2 (09:25→21:00)
[2019-01-05] MEDS: Digoxin 0.125 MG TAB PO SCH (09:26)
[2019-01-05] MEDS: Lisinopril 20 MG TAB PO SCH ×2 (09:26→20:59)
[2019-01-05] MEDS: Thyroid 60 MG TAB PO SCH (09:26)
[2019-01-05] MEDS: predniSONE 5 MG TAB PO SCH (09:26)
[2019-01-05] MEDS: Metoprolol Tartrate 25 MG TAB PO SCH ×2 (09:26→20:59)
--- NOTE | 2019-01-05 13:24 | PRG ---
DATE OF SERVICE: 01/05/2019 SUBJECTIVE: The patient is seen and examined at bedside. She had her colostomy done yesterday. She feels better. She still has watery diarrhea. OBJECTIVE: VITAL SIGNS: Blood pressure is 144/78, pulse is 75, respiratory rate is 16, O2 saturation is 93% on room air, her temperature is 98.1. HEENT: Her pupils are responding to light properly. Sclerae are nonicteric. Conjunctivae are somewhat palish. Oral mucosa is moist. NECK: Supple. LUNGS: Clear. HEART: S1 and S2, normal. No S3. No S4. ABDOMEN: She has a colostomy bag in place and it is filled with liquid stool. Bowel sounds are present. EXTREMITIES: No clubbing, cyanosis, or edema. NEUROLOGIC: She follows my commands. She moves all 4 extremities. LABORATORY DATA: Showed white count of 11,000, hemoglobin 9.3, hematocrit 27.8, platelet count is 221,000. Sodium is 134, potassium 3.0, chloride 103, CO2 of 23, BUN 6, creatinine 0.7. Glycemia is ranging from 106 to 177, calcium is 7.5. IMPRESSION: 1. Clostridium difficile colitis. The patient was started on vancomycin yesterday. We will continue that treatment. 2. 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 3. Sjogren syndrome. 4. Hypokalemia, for replacement. 5. 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 We will continue her Accu-Cheks and sliding scale before meals and at bedtime. 6. History of atrial fibrillation, currently in sinus rhythm. She will be restarted on her Eliquis tonight. 7. Hypothyroidism. 8. Hyperlipidemia. 9. Hypertension. 10. History of myocardial infarction. 11. History of congestive heart failure. 12. History of chronic obstructive pulmonary disease. 13. Chronic diastolic heart failure. PLAN: As mentioned above, continue p.o. vancomycin q.6 hours, start Eliquis tonight, continue Accu-Cheks before meals and at bedtime, and cover with mild sliding scale, and do physical therapy. Job ID: [id number]
[2019-01-05] MEDS: Potassium Chloride 20 MEQ TAB PO SCH ×2 (14:25→17:19)
--- NOTE | 2019-01-05 14:32 | EKG ---
Test Reason : Blood Pressure : / mmHG Vent. Rate : 079 BPM Atrial Rate : 079 BPM P-R Int : 214 ms QRS Dur : 090 ms QT Int : 380 ms P-R-T Axes : 078 009 255 degrees QTc Int : 435 ms Sinus rhythm with 1st degree A-V block Anterior infarct , age undetermined Abnormal ECG Confirmed by KALA BECERRIL ([id number]), avid editor BRENDEN AVINA ([id number]) on 01/05/2019 2:32:45 PM Referred By: Confirmed By:KALA BECERRIL
[2019-01-05] MEDS: Sodium Chloride 0.9% 1,000 ML IV SCH (17:19)
[2019-01-05] MEDS: HumaLOG 300 UNITS/3 ML VIAL SC PRN (17:24)
[2019-01-05] MEDS ORDERED: Magnesium Oxide 400 MG TAB PO SCH (17:45)
--- NOTE | 2019-01-05 17:47 | PDOC.GSPN ---
Surgery Progress Note: Subj - Subjective Narrative: Patient is doing all right since her operation. Pain is tolerable. She is having some liquid stool through her colostomy. Not much drainage from her left lower quadrant wound. Urine output is not quantified due to incontinence. Vital signs are okay. Blood pressure is a little bit elevated. White count has come down. Her incisions all look good and her colostomy is pink and healthy although edematous. Assessment/plan: Colocutaneous fistula status post diverting colostomy. Doing well overall. Advance diet as tolerated. Advance activities as tolerated. Continue wet-to-dry dressings to left lower quadrant wound. Surgery Progress Note: Obj - Vital signs Vital signs: Vital Signs - Most Recent Temp Pulse Resp BP Pulse Ox 98.3 F 75 16 145/67 H 94 L 01/05/19 15:30 01/05/19 15:30 01/05/19 15:30 01/05/19 15:30 01/05/19 15:30 Surgery Progress Note: Results - Labs Result Diagrams: 01/05/19 04:07 01/05/19 04:07 Lab results: Laboratory Results - last 24 hr 01/05/19 01/05/19 01/05/19 04:07 04:41 10:59 POC Glucose 106 128 H Magnesium 1.5 L 01/05/19 15:35 POC Glucose 205 H Magnesium
[2019-01-05] MEDS: Apixaban 5 MG TAB PO SCH (20:59)
[2019-01-06] MEDS: Vancomycin HCl 25 MG/ML Oral PO SCH ×5 (00:29→23:32)
[2019-01-06] MEDS: cefOXitin Sodium 1 GM in Sodium Chloride 0.9% 100 ML IVPB SCH ×4 (03:26→21:05)
[2019-01-06] MEDS: HYDROcodone/Acetaminophen 7.5/325 mg Tablet PO PRN ×3 (03:34→21:06)
[2019-01-06 04:40] LABS: #Eosinphils 0.2 thou/uL (0.0-0.7); #Lymphocytes 2.5 thou/uL (1.20-3.40); #Monocytes 0.6 thou/uL (0.11-0.59); #Neutrophils 4.6 thou/uL (1.40-6.50); %Basophils 0.2 % (0.0-1.0); %Eosinophils 2.4 % (0.0-10.0); %Lymphocytes 31.8 % (21.0-51.0); %Monocytes 7.6 % (0.0-10.0); Hemoglobin 9.1 g/dL (12.0-16.0); Mean Corpuscular Hemoglobin 29.8 pg (27.0-31.0); Mean Corpuscular Volume 90.4 fL (78.0-98.0); Platelet Count 202 thou/uL (130-400); RBC Distribution Width 16.7 % (11.5-14.5); Red Blood Cell (RBC) Count 3.05 mill/uL (4.20-5.40)
[2019-01-06 05:01] LABS: Anion Gap 11 mmol/L (10-20); BUN (Urea Nitrogen) 4 mg/dL (9.8-20.1); Calc. Creatinine Clearance 57 mL/min (70-130); Calcium 7.8 mg/dL (7.8-10.44); Carbon Dioxide 21 mmol/L (23-31); Chloride 106 mmol/L (98-107); Estimated GFR-MDRD 77; Glucose 118 mg/dL (83-110); Potassium 4.3 mmol/L (3.5-5.1); Sodium 134 mmol/L (136-145)
[2019-01-06] MEDS: Saccharomyces boulardii 250 MG CAP PO SCH (08:47)
[2019-01-06] MEDS: Digoxin 0.125 MG TAB PO SCH (08:47)
[2019-01-06] MEDS: Isosorbide Mononitrate (ER) 30 MG TAB PO SCH ×2 (08:48→21:06)
[2019-01-06] MEDS: Thyroid 60 MG TAB PO SCH (08:48)
[2019-01-06] MEDS: Metoprolol Tartrate 25 MG TAB PO SCH (08:48)
[2019-01-06] MEDS: Magnesium Oxide 400 MG TAB PO SCH (08:48)
[2019-01-06] MEDS: hydrALAZINE 25 MG TAB PO SCH ×3 (08:48→21:05)
[2019-01-06] MEDS: predniSONE 5 MG TAB PO SCH (08:48)
[2019-01-06] MEDS: Lisinopril 20 MG TAB PO SCH ×2 (08:48→21:06)
[2019-01-06] MEDS: Sotalol HCl 80 MG TAB PO SCH ×2 (08:49→21:06)
[2019-01-06] MEDS: Apixaban 5 MG TAB PO SCH ×2 (08:49→21:05)
[2019-01-06] MEDS: cloNIDine 0.3 MG TAB PO SCH ×3 (08:49→21:10)
[2019-01-06] MEDS ORDERED: Metoprolol Tartrate 25 MG TAB PO SCH ×2 (09:53→10:00)
--- NOTE | 2019-01-06 10:43 | PRG ---
DATE OF SERVICE: 01/06/2019 SUBJECTIVE: The patient is seen and examined at the bedside. She had good night. She has slept through. She is on clear liquids. She does not have much complaints to offer. She is on pain medications for her surgery and abdominal pain. OBJECTIVE: VITAL SIGNS: Blood pressure is 160/72, pulse 74, temperature 97.0, respirations 18, and O2 saturation is 98% on room air. HEENT: Head is atraumatic and normocephalic. Eyes are PERRLA. Sclerae are nonicteric. Oral mucosa is moist. NECK: Supple. LUNGS: Clear. HEART: S1 and S2 normal. No S3. No S4. ABDOMEN: Soft. The colostomy is in place and the bag has some liquid fluid. Points of entry for laparoscopic abdominal operation look good. NEUROLOGIC: She follows my commands. She moves her all 4 extremities. There is no any motor or sensory deficits. LABORATORY DATA: Labs showed white count of 8.0, hemoglobin 9.1, hematocrit 27.6, and platelet count is 202. Sodium of 134, potassium 4.3, chloride 106, CO2 of 21, BUN 4, creatinine 0.73, glycemia is ranging from 118 to 205, and calcium is 7.8. Microbiology, nothing new. IMPRESSION: 1. Clostridium difficile colitis, on vancomycin orally. We will continue the treatment. 2. 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 3. Sjogren syndrome. 4. Hypokalemia. 5. 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 I hesitate to start her on any medications for her glycemia, we preferred to use just sliding scale while she is in the hospital and she can most likely control this sugar with the diet at home. 6. Normocytic anemia, chronic, stable. 7. History of atrial fibrillation currently in sinus rhythm. The patient is restarted on Eliquis last night. 8. Hypothyroidism on supplementation. 9. Hyperlipidemia. 10. Hypertension. We will adjust her beta bobbi dose to metoprolol 50 mg twice a day that is what she was taking at home. 11. History of myocardial infarction. 12. History of congestive heart failure. 13. History of chronic obstructive pulmonary disease. 14. Chronic diastolic heart failure. PLAN: Plan is to continue her vancomycin and cefoxitin. I will increase her metoprolol dose to 50 mg twice a day, her blood pressure is running on higher side slightly. We will continue clear liquids until general surgeon make decision about advancing diet. We will continue current regimen medically and we will continue PT and sliding scale with Humalog before meals and at bedtime. Job ID: [id number]
[2019-01-06] MEDS: HumaLOG 300 UNITS/3 ML VIAL SC PRN ×2 (11:56→15:35)
[2019-01-06] MEDS: Sodium Chloride 0.9% 1,000 ML IV SCH (15:35)
--- NOTE | 2019-01-06 18:41 | PDOC.GSPN ---
Surgery Progress Note: Subj - Subjective Narrative: Patient was quite tearful and upset when I saw her earlier today. She is not hurting, just upset about everything that she is been through in the past year or so. She is disappointed and angry that she has to have a colostomy. She is upset about the placement of the colostomy and says that she won't be able to wear a bra, pants, or nice clothes and will only be able to wear house dresses. She is upset that she spent some time in the hospital in a usp so that her wounds don't seem to heal. She understands into lecture that the colostomy was necessary but she is still upset that she had to have it. Objectively she is doing well. 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 She is tolerating her diet without problems and her incisions are healing. Her white count is normal and her vitals have been okay. Assessment/plan: Doing well from a surgical standpoint, but struggling emotionally with everything she has been through recently. I reassured her that her colostomy is fairly prominent and large now but it will go down in size as the edema resolves and will be less noticeable. I think she will be able to wear normal clothes and a bra once the swelling goes down and be able to live a normal life. I'm going to advance her diet since her colostomy is functioning well. I think this will help in terms of the volume of output. The patient seemed to feel better after being reassured and allowed to express her frustrations. I offered a pastoral care consultation but she declined this. She states that she has a strong nellie and knows that God is going to help her through this. Surgery Progress Note: Obj - Vital signs Vital signs: Vital Signs - Most Recent Temp Pulse Resp BP Pulse Ox 98 F 81 16 157/68 H 95 01/06/19 15:23 01/06/19 15:34 01/06/19 15:23 01/06/19 15:34 01/06/19 15:23 Surgery Progress Note: Results - Labs Result Diagrams: 01/06/19 04:25 01/06/19 04:25 Lab results: Laboratory Results - last 24 hr 01/06/19 01/06/19 11:23 15:24 POC Glucose 160 H 169 H
[2019-01-06] MEDS: Metoprolol Tartrate 50 MG TAB PO SCH (21:06)
[2019-01-07] MEDS: cefOXitin Sodium 1 GM in Sodium Chloride 0.9% 100 ML IVPB SCH (02:07)
[2019-01-07] MEDS: HYDROcodone/Acetaminophen 7.5/325 mg Tablet PO PRN ×3 (02:08→18:28)
--- NOTE | 2019-01-07 02:37 | PDOC.EVN ---
Event Note - Event Note Event Note: Nursing called to report some non-healing surgical wounds on patient's back from previous laminectomy several months ago; wound care consulted to address these wounds. Day team to address if further care/management needed.
[2019-01-07] MEDS: Thyroid 60 MG TAB PO SCH (05:32)
[2019-01-07] MEDS: Vancomycin HCl 25 MG/ML Oral PO SCH ×4 (05:36→23:43)
[2019-01-07] MEDS: Saccharomyces boulardii 250 MG CAP PO SCH (08:43)
[2019-01-07] MEDS: predniSONE 5 MG TAB PO SCH (08:44)
[2019-01-07] MEDS: hydrALAZINE 25 MG TAB PO SCH ×3 (08:44→21:03)
[2019-01-07] MEDS: Lisinopril 20 MG TAB PO SCH ×2 (08:44→21:03)
[2019-01-07] MEDS: Magnesium Oxide 400 MG TAB PO SCH (08:45)
[2019-01-07] MEDS: Sotalol HCl 80 MG TAB PO SCH ×2 (08:45→21:04)
[2019-01-07] MEDS: Digoxin 0.125 MG TAB PO SCH (08:45)
[2019-01-07] MEDS: Apixaban 5 MG TAB PO SCH ×2 (08:45→21:03)
[2019-01-07] MEDS: cloNIDine 0.3 MG TAB PO SCH ×3 (08:45→21:02)
[2019-01-07] MEDS: cefOXitin Sodium/Dextrose,Iso 1 GM in Premix Bag 1 BAG IVPB SCH ×3 (08:46→17:39)
[2019-01-07] MEDS: Isosorbide Mononitrate (ER) 30 MG TAB PO SCH (08:46)
[2019-01-07] MEDS: Metoprolol Tartrate 50 MG TAB PO SCH ×2 (08:46→21:03)
[2019-01-07] MEDS: Sodium Chloride 0.9% 1,000 ML IV SCH (08:54)
[2019-01-07] MEDS: hydrALAZINE 20 MG/ML VIAL SLOW IVP PRN (13:11)
[2019-01-07] MEDS ORDERED: Isosorbide Mononitrate (ER) 30 MG TAB PO SCH (13:15)
[2019-01-07] MEDS: HumaLOG 300 UNITS/3 ML VIAL SC PRN ×2 (13:17→16:53)
--- NOTE | 2019-01-07 13:19 | PDOC.HOSPP ---
- Subjective Encounter Date: 01/07/19 Encounter Time: 13:16 Subjective: 78 y/o fewmale with colonic diverticulilitis associated with abscess s/p lap washout admitted with fecal material drainage from one of the wounds. 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 Also found to have c dif. tolerating oral intake. No fever. - Objective Vital Signs & Weight: Vital Signs (12 hours) Temp Pulse Resp BP BP Pulse Ox 01/07/19 13:11 75 193/70 H 01/07/19 12:11 98.5 F 75 18 193/70 H 94 L 01/07/19 08:45 75 172/70 H 01/07/19 08:44 75 172/70 H 01/07/19 08:40 94 L 01/07/19 07:35 98.1 F 75 14 197/77 H 94 L 01/07/19 03:39 98.1 F 70 16 175/78 H 98 Weight Admit Weight 125 lb 0.034 oz Weight 125 lb 0.034 oz I&O: 01/06/19 01/07/19 01/08/19 06:59 06:59 06:59 Intake Total 840 2900 650 Output Total 1470 1205 Balance -630 1695 650 Result Diagrams: 01/06/19 04:25 01/06/19 04:25 Additional Labs: Accuchecks 01/07/19 01/06/19 01/06/19 05:37 20:02 15:24 POC Glucose 116 H 178 H 169 H ROS - Medication Medications: Active Medications Generic Name Dose Route Start Last Admin Trade Name Freq PRN Reason Stop Dose Admin Hydrocodone Bitart/Acetaminophen 1 tab 01/04/19 23:14 01/06/19 03:34 [place] 7.5/325 PO 1 tab Q4H PRN Administration Moderate Pain (4-6) Hydrocodone Bitart/Acetaminophen 2 tab 01/04/19 23:14 01/07/19 09:16 [place] 7.5/325 PO 2 tab Q4H PRN Administration Severe Pain (7-10) Apixaban 5 mg 01/05/19 21:00 01/07/19 08:45 Eliquis PO 5 mg BID SANDEE Administration Clonidine 0.3 mg 01/03/19 15:00 01/07/19 08:45 Catapres PO 0.3 mg TID [facility] Administration Dicyclomine HCl 20 mg 01/03/19 09:33 01/05/19 02:48 Bentyl PO 20 mg Q6H PRN Administration Abdominal Cramps Digoxin 0.125 mg 01/04/19 09:00 01/07/19 08:45 Lanoxin PO 0.125 mg DAILY SANDEE Administration Hydralazine HCl 100 mg 01/03/19 15:00 01/07/19 08:44 Apresoline PO 100 mg TID SANDEE Administration Hydralazine HCl 10 mg 01/05/19 00:20 01/07/19 13:11 Apresoline SLOW IVP 10 mg Q4H PRN Administration SBP > 180 and HR < 70 Cefoxitin Sodium/Dextrose 1 gm 50 mls @ 100 mls/hr 01/07/19 09:00 01/07/19 08 :46 / Device IVPB 50 mls 0300,0900,1500,2100 SANDEE Administration Insulin Human Lispro 0 units 01/03/19 09:37 01/06/19 15:35 Humalog SC 2 unit .MILD SLIDING SCALE PRN Administration Mild Correctional Scale Lisinopril 20 mg 01/03/19 21:00 01/07/19 08:44 Zestril PO 20 mg BID [facility] Administration Magnesium Oxide 400 mg 01/06/19 09:00 01/07/19 08:45 Magnesium Oxide PO 400 mg DAILY [facility] Administration Metoprolol Tartrate 50 mg 01/06/19 21:00 01/07/19 08:46 Lopressor PO 50 mg BID [facility] Administration Morphine Sulfate 2 mg 01/04/19 17:53 01/04/19 20:31 Morphine SLOW IVP 2 mg Q2H PRN Administration Moderate Pain (4-6) Morphine Sulfate 4 mg 01/04/19 17:53 01/04/19 18:34 Morphine SLOW IVP 4 mg Q2H PRN Administration Severe Pain (7-10) Ondansetron HCl 4 mg 01/04/19 18:54 01/04/19 23:45 Zofran SLOW IVP 4 mg Q8H PRN Administration Nausea/Vomiting Pantoprazole Sodium 40 mg 01/04/19 09:00 01/07/19 08:46 Protonix PO 40 mg DAILY [facility] Administration Prednisone 15 mg 01/04/19 09:00 01/07/19 08:44 Prednisone PO 15 mg DAILY SANDEE Administration Saccharomyces Boulardii 250 mg 01/04/19 09:00 01/07/19 08:43 Florastor PO 250 mg DAILY SANDEE Administration Sodium Chloride 10 ml 01/03/19 21:00 01/07/19 08:46 Flush - Normal Saline IVF 10 ml Q12HR SANDEE Administration Sotalol HCl 80 mg 01/03/19 21:00 01/07/19 08:45 Betapace PO 80 mg BID SANDEE Administration Thyroid 60 mg 01/04/19 09:00 01/07/19 05:32 [place] Thyroid PO 60 mg QAM SANDEE Administration Vancomycin HCl 125 mg 01/04/19 12:00 01/07/19 13:10 First Vancomycin PO 125 mg Q6HR SANDEE Administration - Exam awake alert Eye: anicteric sclera ENT: normocephalic atraumatic, moist mucosa Neck: supple Heart: RRR Respiratory: no wheezes, no rales, no ronchi, normal chest expansion Gastrointestinal: soft, non-distended, normal bowel sounds Gastrointestinal - other findings: colosctomy and left groin dressing noted Extremities: no cyanosis, no edema Neurological: CN's grossly intact, no focal deficits Musculoskeletal - other findings: 2 posterior midline ulcers at prior surgical sites noted Psychiatric: A&O x 3 Hosp A/P (1) Colocutaneous fistula Code(s): K63.2 - FISTULA OF INTESTINE Status: Acute (2) C. difficile colitis Code(s): A04.72 - ENTEROCOLITIS D/T CLOSTRIDIUM DIFFICILE, NOT SPCF RECUR Status: Acute (3) Acute colitis Code(s): K52.9 - NONINFECTIVE GASTROENTERITIS AND COLITIS, UNSPECIFIED Status : Acute (4) Wound dehiscence Code(s): T81.30XA - DISRUPTION OF WOUND, UNSPECIFIED, INITIAL ENCOUNTER Status : Acute (5) Hyponatremia Code(s): E87.1 - HYPO-OSMOLALITY AND HYPONATREMIA Status: Acute (6) Physical deconditioning Code(s): R53.81 - OTHER MALAISE Status: Acute (7) Tachy-sally syndrome Code(s): I49.5 - SICK SINUS SYNDROME Status: Acute (8) Atrial fibrillation Code(s): I48.91 - UNSPECIFIED ATRIAL FIBRILLATION Status: Chronic (9) COPD (chronic obstructive pulmonary disease) Status: Chronic (10) Hypertension Code(s): I10 - ESSENTIAL (PRIMARY) HYPERTENSION Status: Chronic Qualifiers: Hypertension type: essential hypertension Qualified Code(s): I10 - Essential (primary) hypertension (11) Hypothyroidism Code(s): E03.9 - HYPOTHYROIDISM, UNSPECIFIED Status: Chronic Qualifiers: Hypothyroidism type: acquired Qualified Code(s): E03.9 - Hypothyroidism, unspecified (12) Hypomagnesemia Code(s): E83.42 - HYPOMAGNESEMIA Status: Resolved - Plan Increase imdur to 60 mg bid. Get CBC, BMP, Mag and phos in the am. Continue oral vancomycin. PT/OT to continue . Consult Neurosurgery for back wound dehiscence
--- NOTE | 2019-01-07 13:24 | PQF ---
CARLOS MANUEL ROSARIO OBIESTELLE [id number] SURG A- [id number] CLINICAL DOCUMENTATION IMPROVEMENT CLARIFICATION FORM: ICD-10 Updated PLEASE SEND QUERY TO DR. RINCON. HE WAS THE DISCHARGING PHYSICIAN AND I DIDN'T SEE THIS PATIENT DURING THE HOSPITAL STAY. Thank you, Dr. Polo PLEASE DO AN ADDENDUM TO THE PROGRESS NOTE WITH ANY DOCUMENTATION UPDATES OR ADDITIONS AND CARRY THROUGH TO DC SUMMARY. THANK YOU. DATE: 01/07/2019 ,01/08/2019 ATTN:DR. Luis Antonio RINCON , DR. Luis Antonio POLO Please exercise your independent, professional judgment in responding to the clarification form. Clinical indicators are provided on the bottom of this form for your review. 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 RISK: DX CLOSTRIDIUM DIFFICILE COLITIS ( PN / NESHA) ADVANCED AGE(78) (H &P/ CHMIELEWSK) TREATMENTS: VANCOMYCIN IV ( 01/04-PRESENT) SERIAL BASEMET (01/03-01/06) THANK YOU! ANGEL (This form is maintained as a part of the permanent medical record) 2014 [employer]. All Rights Reserved CHRISTINA [email or web address] [phone] MTDD
--- NOTE | 2019-01-07 19:52 | PRG ---
DATE OF SERVICE: 01/07/2019 SUBJECTIVE: Ms. Carrera is doing well following her laparoscopic transverse colostomy creation on January 04. She has no new complaints today. She notes mild appropriate abdominal discomfort. She notes good ostomy function. She is still having the dressing changed on her left groin abscess site. She is tolerating her diet. OBJECTIVE: VITAL SIGNS: She is afebrile. Pulse is 73. She is hypertensive at 186/77. LUNGS: Clear to auscultation. ABDOMEN: Soft. Laparoscopic incisions are healing nicely. The left upper colostomy site appears to be functioning well. Left groin dressing was inspected and found to still have some significant drainage on this. The dressing was changed. LABORATORY DATA: Her CBC yesterday revealed a hemoglobin of 9.1 with white blood cell count of 8.0. Her chemistries were checked yesterday and were minimally abnormal. ASSESSMENT AND PLAN: She is doing well following transverse colostomy creation. Her diet will be advanced today. She was continued on cefoxitin secondary to the feculent drainage, and this will be discontinued. I suspect that there will be some continued drainage from her left groin for a while, but I also suspect that this should heal, now her colon has been diverted. She is ready for discharge home in the next day or 2. We will request Home Health Nursing consultation from Case Management. We will make sure that if she has had colostomy training. Job ID: [id number]
[2019-01-08] MEDS: HYDROcodone/Acetaminophen 7.5/325 mg Tablet PO PRN ×2 (00:35→05:49)
[2019-01-08] MEDS: hydrALAZINE 20 MG/ML VIAL SLOW IVP PRN (00:39)
--- NOTE | 2019-01-08 01:15 | CON ---
DATE OF CONSULTATION: HISTORY OF PRESENT ILLNESS: Ms. Carrera went to the hospital on 01/03/2019 following abdominal dysfunction where she had a colostomy placed on 01/[address] Alfonso. The patient is a known patient of Dr. Hairston's, one of the partners in our group. He performed a thoracic lumbar laminectomy back in June. Due to the patient's chronic steroid use, she has poor healing and the incision has two areas that they have been watching. Neurosurgery was consulted to evaluate this poor healing wound. The patient is resting comfortably in her hospital bed. She is not in any visible discomfort. She has a wound VAC on the abdominal wound as well as her colostomy bag on her abdomen. She has two aspects of her thoracolumbar incision, the most proximal and the most distal, that have not quite fully healed yet. Each one is approximately an inch with some eschar tissue. No drainage is visible at this time. Wound Care has recently seen her and treated both areas shortly before my visit. Dr. Hairston saw Ms. Carrera on 12/26/2018. He wants her to continue with home health care, possibly using a wound VAC on those as well and to follow up with him in approximately 6 weeks. Ms. Carrera is moving all 4 extremities well. She is in no visible distress and no neuro deficits at this time. REVIEW OF SYSTEMS: A 10-point review of systems has been completed and is negative other than stated in the above HPI. PAST MEDICAL HISTORY: Sjogren syndrome, atrial fibrillation, hypothyroidism, high cholesterol, hypertension, osteoarthritis, OR in January 2018, fibromyalgia, perforated colon. PAST SURGICAL HISTORY: Right ovary, cardiac ablation x2, cholecystectomy, hysterectomy, thyroidectomy, thoracolumbar surgery, cardiac surgery, pacemaker placement. SOCIAL HISTORY: The patient denies alcohol use. Denies drug use. Has no smoking history. ALLERGIES: NORVASC. CURRENT MEDICATIONS: 1. [place] Thyroid. 2. Potassium chloride. 3. Metoprolol tartrate. 4. Clonidine . 5. Omeprazole. 6. Dicyclomine. 7. Buspirone. 8. Hydralazine. 9. Lisinopril. 10. Sotalol. 11. Isosorbide mononitrate. 12. Digoxin. 13. Lialda. 14. Prednisone. 15. Aspirin 81 mg. 16. Cetirizine. 17. Albuterol. 18. Vitamin D3. 19. Multivitamin. PHYSICAL EXAMINATION: VITAL SIGNS: Temperature 97.8, heart rate 73, respirations 18, O2 saturations 97% on room air, blood pressure is 186/77. ASSESSMENT AND PLAN: Ms. Carrera is 78-year-old female who is currently in the hospital recovering from a colectomy done on January 03. The patient has chronic steroid use and has poor healing properties of her skin. She had a lumbar laminectomy done in June with Dr. Hairston. He has been following her since then and her poor healing incision. She has two aspects of her incision that have not fully closed with some eschar tissue. She is currently being treated with home health and wound care. He saw her on 12/26 and recommended continuing the wound care treatment, possibly using a wound VAC and following up with him in 6 weeks. We will let Dr. Hairston's team know that Ms. Carrera is in the hospital and continue wound care treatment while she is admitted and then continue her followup as planned. If there are any further questions, please contact Neurosurgery's team. Job ID: [id number]
[2019-01-08] MEDS: Thyroid 60 MG TAB PO SCH (05:48)
[2019-01-08] MEDS: Vancomycin HCl 25 MG/ML Oral PO SCH ×2 (05:48→12:40)
[2019-01-08 05:53] LABS: #Eosinphils 0.3 thou/uL (0.0-0.7); #Lymphocytes 3.1 thou/uL (1.20-3.40); #Monocytes 0.7 thou/uL (0.11-0.59); #Neutrophils 7.7 thou/uL (1.40-6.50); %Eosinophils 2.4 % (0.0-10.0); %Lymphocytes 26.5 % (21.0-51.0); %Monocytes 5.9 % (0.0-10.0); %Neutrophils 65.1 % (42.0-75.0); Mean Corpuscular HGB CONC 32.3 g/dL (32.0-36.0); Mean Corpuscular Hemoglobin 29.3 pg (27.0-31.0); Mean Corpuscular Volume 90.5 fL (78.0-98.0); Mean Platelet Volume 7.1 fL (7.4-10.4); Platelet Count 270 thou/uL (130-400); RBC Distribution Width 16.6 % (11.5-14.5); Red Blood Cell (RBC) Count 3.42 mill/uL (4.20-5.40); White Blood Cell (WBC) Count 11.8 thou/uL (4.8-10.8)
[2019-01-08 06:17] LABS: Albumin 2.8 g/dL (3.4-4.8); Anion Gap 13 mmol/L (10-20); BUN (Urea Nitrogen) 7 mg/dL (9.8-20.1); BUN/Creatinine Ratio 11.29; Calc. Creatinine Clearance 67 mL/min (70-130); Carbon Dioxide 24 mmol/L (23-31); Chloride 100 mmol/L (98-107); Estimated GFR-MDRD Greater than 90; Glucose 91 mg/dL (83-110); Magnesium 1.7 mg/dL (1.6-2.6); Phosphorus 3.8 mg/dL (2.3-4.7); Potassium 3.5 mmol/L (3.5-5.1); Sodium 133 mmol/L (136-145)
--- NOTE | 2019-01-08 08:53 | PRG ---
DATE OF SERVICE: 01/08/2019 This is Erlin Chance PA-C dictating a report for Juan Hairston MD. This is a 50-minute subsequent patient evaluation, in which greater than 50% of the exam was spent in counseling and coordinating of the patient's care, remainder of the exam was spent in review of the patient's medical records and formulation of treatment plan. Ms. Carrera is well known to both Dr. Hairston and Elsy as we previously under did thoracic and lumbar laminectomies in June of 2018. Fortunately, the patient's recovery has been complicated by diverticulitis, colonic abscess, colonic fistula with colostomy, and multiple other abdominal issues with groin wound that required placement of wound VAC. In regard to neurosurgically, the patient states that she does have some bilateral posterior leg pain that limits her mobility. She does not complain much in the way of back pain. Neurosurgery is asked to see her in regard to her continued healing incisions. She has two incisions in the low thoracic and low back regions and both these incisions appeared to be slowly healing as compared to when we last saw her in the office a few weeks ago. There is a little bit of drainage on the dressing, but wound care has been seeing her. There does not appear to be any purulence to the drainage and no odor. The dehiscence is about a half dollar in size in both incisions and depth higgins it is roughly 3 cm in both incisions. The patient does have good strength in all the extremities. At this time, there is no role for incision and drainage or wound revision. The patient unfortunately has C. diff, our medical colleagues are working on treating this. We have been holding her Plavix, although she may continue with this from neurosurgical standpoint. Her incisions are slow healing given her previous steroid use and her white blood cell count appears to be trending somewhat downward. Neurosurgery will intermittently follow the patient, but otherwise, she does appear as though she is slowly, but surely moving in the right direction regards to wound healing. Job ID: [id number]
[2019-01-08] MEDS ORDERED: Potassium Chloride 20 MEQ TAB PO SCH (09:15)
[2019-01-08] MEDS: hydrALAZINE 25 MG TAB PO SCH (09:19)
[2019-01-08] MEDS: predniSONE 5 MG TAB PO SCH (09:20)
[2019-01-08] MEDS: Magnesium Oxide 400 MG TAB PO SCH (09:20)
[2019-01-08] MEDS: Saccharomyces boulardii 250 MG CAP PO SCH (09:21)
[2019-01-08] MEDS: Lisinopril 20 MG TAB PO SCH (09:21)
[2019-01-08] MEDS: Digoxin 0.125 MG TAB PO SCH (09:21)
[2019-01-08] MEDS: Apixaban 5 MG TAB PO SCH (09:21)
[2019-01-08] MEDS: Metoprolol Tartrate 50 MG TAB PO SCH (09:21)
[2019-01-08] MEDS: Sotalol HCl 80 MG TAB PO SCH (09:22)
[2019-01-08] MEDS: cloNIDine 0.3 MG TAB PO SCH (09:22)
--- NOTE | 2019-01-08 10:39 | PRG ---
DATE OF SERVICE: 01/08/2019 SUBJECTIVE: Ms. Carrera remains on the surgical floor. She is postoperative day #4 from laparoscopic transverse colostomy creation. She is in good spirits today. She notes she has been eating as well. She has only minimal discomfort in her abdomen. A wound VAC was placed on her left groin wound site yesterday. Her back wound has been seen by Neurosurgery. She denies any diarrheal like problems associated with her colostomy, but it is working appropriately. Home Health has been arranged to help her with ostomy care, and she has already had ostomy draining. OBJECTIVE: VITAL SIGNS: She is afebrile, pulse is 75, and blood pressure is 164/73. GENERAL: Ostomy output is good, and she is voiding well. She is walking with assistance. LUNGS: Clear to auscultation. ABDOMEN: Soft. Ostomy is viable with mild appropriate edema. EXTREMITIES: Unremarkable. LABORATORY DATA: CBC shows a stable hemoglobin of 10, white blood cell count 11.8. Chemistry profile reveals no substantial abnormalities. Albumin is a little bit low at 2.8. ASSESSMENT AND PLAN: She is stable following laparoscopic colostomy creation. This was performed in treatment of a colocutaneous fistula in her left groin from a prior diverticular abscess. It is my hope that the fistula will close spontaneously since there is no longer any flow through the colon, and this will allow the left groin wound to heal. She is stable for discharge today. She only requires tramadol for discomfort. I will see her back in 2 weeks to recheck her abdomen and her groin. Job ID: [id number]
--- NOTE | 2019-01-08 11:44 | PDOC.EVN ---
Event Note - Event Note Event Note: Discharge summary dictated today. #[id number]
--- NOTE | 2019-01-08 12:09 | DIS ---
DATE OF ADMISSION: 01/03/2019 DATE OF DISCHARGE: 01/08/2019 PRIMARY CARE PHYSICIAN: ERIN Goldstein. DISCHARGE DIAGNOSES: 1. Colocutaneous fistula. 2. Complicated diverticulitis with enterocutaneous fistula formation. 3. Acute colitis. 4. Clostridium difficile infection. 5. Hyponatremia: Present on admission. Due to intravascular contraction with appropriate ADH secretion. 6. Hypokalemia. 7. Hypomagnesemia. 8. Lower thoracic and upper lumbar wound dehiscence. 9. Left groin wound. 10. Paroxysmal atrial fibrillation. 11. Tachy-sally syndrome. 12. Chronic obstructive pulmonary disease without acute exacerbation. 13. Hypertension. 14. Hypothyroidism. 15. Chronic anticoagulation with Eliquis. 16. Physical deconditioning. 17. Hypothyroidism. CONSULTS: 1. General Surgery. 2. Neurosurgery. HOSPITAL COURSE: A 78-year-old female with prior history of colonic diverticulitis associated with perforation and abscess, status post laparoscopic washout, admitted due to fecal material drainage from left groin area. General Surgery consult was obtained, and following evaluation, this was felt to be due to colocutaneous fistula. The patient was subsequently taken over to OR and had diversion colostomy. Postoperatively, the patient's recovery was unremarkable. Hospital course, however, was complicated by electrolyte derangements, hyponatremia, hypokalemia, hypomagnesemia as well as C diff infection, which were all treated appropriately. She improved and was subsequently discharged to continue home therapies. Of note, the patient who had back surgery in August was noted to have some wound dehiscence. She was supposed to have wound VAC on this, but has not been compliant. Neurosurgery consult was obtained and they recommended continuation of wound care. She was later discharged home. PHYSICAL EXAMINATION: VITAL SIGNS: Temperature 98.6, pulse 75, respiratory rate 14, SpO2 95% on room air, and blood pressure is 164/53. GENERAL: Elderly female, in no obvious distress. Afebrile. Anicteric. Acyanotic. HEENT: Normocephalic, atraumatic. Oral mucosa is moist. CARDIOVASCULAR: Regular rhythm and rate with normal heart sounds. RESPIRATORY: Good air entry bilaterally with no obvious crackle or rhonchi. GI: Full, soft, nondistended with normal bowel sounds. Left flank colostomy noted. Left groin area wound VAC noted. EXTREMITIES: Extremities are grossly normal with few patchy scattered ecchymosis. No erythema appreciated. MUSCULOSKELETAL: Lower thoracic and upper lumbar midline wound dehiscence noted with no obvious drainage. NEUROLOGIC: Conscious, alert, and oriented x3 with appropriate mental status. Cranial nerves 2 through 12 are intact. DISCHARGE DISPOSITION: Home with home health. DISCHARGE CONDITION: Improved. FOLLOWUP: 1. With PCP in 3 days. 2. With General Surgery in 2 weeks. 3. With the Neurosurgery in 2 to 3 weeks. 4. 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 DISCHARGE HOME MEDICATIONS: See discharge med rec. Of note, Imdur was increased from 60 daily to 60 b.i.d. All the other home medications were continued. TIME SPENT: Discharge took more than 40 minutes. Job ID: [id number]
[2019-01-08 12:59] VITALS: BP 163/65; TEMP 98.4
[2019-01-08] MEDS: HumaLOG 300 UNITS/3 ML VIAL SC PRN (13:13)
[2019-01-08] MEDS ORDERED: Magnesium Oxide 400 MG TAB PO SCH (21:00)
--- NOTE | 2019-01-08 22:59 | OP ---
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 PROCEDURE PERFORMED: Laparoscopic assisted colostomy creation. ANESTHESIA: General endotracheal. INDICATIONS: The patient is a 78-year-old chronically ill white female. She has had several episodes of diverticulitis involving both the left colon and the sigmoid colon. Her most recent episode resulted in abscess which eroded through the abdominal wall and last month required operative drainage of a left groin abscess, as well as the left lower quadrant abscess from which it originated. Unfortunately, she returns at this time with a colocutaneous fistula with stool draining from the left groin wound. After discussing options, I have recommended creation of a transverse colon colostomy rather than attempting resection much less anastomosis. DESCRIPTION OF OPERATION: Informed consent was obtained. The patient was taken to the operating room, where general endotracheal anesthesia was obtained and the patient was placed in supine position. Abdomen was prepped with ChloraPrep and draped in sterile fashion. Local anesthetic was infiltrated using 0.25% Marcaine with epinephrine and a 5 mm infraumbilical incision was created through which a Veress needle was passed through the peritoneal cavity and pneumoperitoneum was established using carbon dioxide up to pressure of 15 mmHg. A 5 mm trocar port was passed through the same incision. Laparoscopic camera was passed through this port. Under direct vision, two additional 5 mm ports were placed, one in the right lower quadrant, one in the left lower quadrant. Attention was turned to the transverse colon. This was without adhesions. I was able to retract the omentum in a cephalad direction. I identified a segment in the distal transverse colon, it was already relatively mobile. I dissected the omentum off this segment of omentum for several inches in each direction. I ensured that this was appropriately mobile to easily reach the anterior abdominal wall. I identified a segment of the abdominal wall that this reached easily and this was marked cutaneously. The skin at this location was incised and the colostomy opening was created. Cruciate incisions were created in the fascia of the anterior and posterior rectus sheath. I was able to reach down and identify the involved segment of the transverse colon. This was able to be delivered up through the opening in the abdominal wall. I created a mesenteric window and divided the colon at this level with a single fire of the SHAWN 75 stapler. Prolene sutures were placed in the distal transected segment. This was dropped back down to the abdominal cavity. I divided the small segment of the mesentery to get better mobility of the proximal segment. The proximal colon was secured to the fascia in four quadrants with interrupted sutures of 3-0 silk. The abdominal cavity was inspected one final time with laparoscopy. All three ports were removed under direct vision. Pneumoperitoneum was carefully evacuated. A 0.25% Marcaine with epinephrine was infiltrated at each port site. Skin edges were approximated with 4-0 Monocryl subcuticular suture and Dermabond was placed externally. Attention was returned to the colostomy. The staple line was removed. Four quadrant eversion sutures were placed of 3-0 Vicryl. Remaining colostomy was matured with interrupted full-thickness sutures of 3-0 Vicryl between the edge of the colostomy in the skin edge. The colostomy appliance was trimmed and placed over the colostomy. The patient tolerated the procedure well. There were no complications. Blood loss was negligible. She was taken to the recovery room in stable condition. Job ID: [id number]
[2019-01-09] MEDS ORDERED: Potassium Chloride 20 MEQ TAB PO SCH (09:00)
--- NOTE | 2019-01-15 05:43 | PQF ---
[facility] Crystal Reports [employer] CARLOS MANUEL Godfrey ALISA JEFFRIES MD [id number] SURG [id number] CLINICAL DOCUMENTATION CLARIFICATION FORM: POST DISCHARGE Addendum to original discharge summary date: ____ Late entry note date: __ DATE: ATTN:ALISA JEFFRIES MD Please exercise your independent, professional judgment in responding to the clarification form. Clinical indicators are provided on the bottom of this form for your review Diagnosis: Lower thoracic and upper lumbar wound dehiscence-DS, 01/08, Amy Wesley MD Present on Admission (POA): [ ] Yes [ ] No [ ] Unable to determine Coding guidelines require hospitals to identify whether a diagnosis was present on admission (POA) or not. To accurately assign the appropriate POA indicator, this information must be clearly documented within the medical record. CLINICAL INDICATORS - SIGNS / SYMPTOMS / LABS -The pateint had back surgery in August was noted to have some wound dehiscence- -DS, 01/08, Amy Wesley MD - [facility] back surgery X2, L3 and T8 area-H&P, 01/03, ALISA JEFFRIES MD - both these incisions appearing to be slowly healing as compared to her- Progress note, 01/08, Robson Kern PA-C -The dehiscence is about a half doller in size in both incision and sdepth higgins roughly 33cm-Progress note, 01/08, Robson Kern PA-C - she two aspects of her incision that have not fully closed-Progress note, , Robson Kern PA-C RISK FACTORS: -Colocuteneous fistula sec to previous duiverticular abscess-OP report, 01/04, Naty Hinojosa MD -drainge from left groin area-DS, 01/08, Amy Wesley MD TREATMENT: -Wound VAC-DS, 01/08, Amy Wesley MD -Vancomycin.IV-MAR, 01/04 (This form is maintained as a part of the permanent medical record) 2014 [employer], [employer]. All Rights Reserved Massiel Iniguez [not provided] [not provided] MTDD
== END 2019-01-08 15:40 | disposition home health service (06) | DRG 330 ==
LOC: ERS 01:14 → SURG A 08:16
PROVIDERS: ADMIT Hospitalist; ATTEND Hospitalist
PROC: 0W9H0ZZ Drainage of Retroperitoneum, Open Approach (ICD-10-PCS; 2019-01-03)
PROC: 0D1L4Z4 Bypass Transverse Colon to Cutaneous, Percutaneous Endoscopic Approach (ICD-10-PCS; principal; 2019-01-04)
DX: A04.72 Enterocolitis due to Clostridium difficile, not specified as recurrent (principal); K63.2 Fistula of intestine; I50.32 Chronic diastolic (congestive) heart failure; K57.80 Diverticulitis of intestine, part unspecified, with perforation and abscess without bleeding; E87.1 Hypo-osmolality and hyponatremia; T81.31XA Disruption of external operation (surgical) wound, not elsewhere classified, initial encounter; I48.0 Paroxysmal atrial fibrillation; E83.42 Hypomagnesemia; M35.00 Sjogren syndrome, unspecified; I11.0 Hypertensive heart disease with heart failure; J44.9 Chronic obstructive pulmonary disease, unspecified; E78.5 Hyperlipidemia, unspecified; M19.90 Unspecified osteoarthritis, unspecified site; R73.9 Hyperglycemia, unspecified; E03.9 Hypothyroidism, unspecified; M79.7 Fibromyalgia; E78.00 Pure hypercholesterolemia, unspecified; F41.9 Anxiety disorder, unspecified; E87.6 Hypokalemia; K21.9 Gastro-esophageal reflux disease without esophagitis; Y79.3 Surgical instruments, materials and orthopedic devices (including sutures) associated with adverse incidents; Z79.01 Long term (current) use of anticoagulants; Z90.49 Acquired absence of other specified parts of digestive tract; I25.2 Old myocardial infarction; Z90.710 Acquired absence of both cervix and uterus; Z95.0 Presence of cardiac pacemaker; Z88.6 Allergy status to analgesic agent; Z88.8 Allergy status to other drugs, medicaments and biological substances
CPT/HCPCS: 36415; 36416; 74177; 80048; 80053; 80069; 83630; 83735; 85025; 87324; 87449; 87493; 93005; J0360; J0670; J0694; J2001; J2250; J2270; J2370; J2405; J2543; J2550; J2704; J2765; J3010; J3490; J7512; Q9966

== ENCOUNTER 2019-02-25 12:56 | Outpatient (CLI) | payer MEDICARE, BC ==
[2019-02-25] MEDS ORDERED: Sodium Chloride 0.9% 15 ML NEB ONE (18:00)
--- NOTE | 2019-02-25 18:04 | HP ---
HISTORY OF PRESENT ILLNESS: Ms. Arabella Carrera is a very pleasant 78-year-old, who presents to the Wound Center for evaluation of 2 nonhealing surgical wounds of the back in the midline subsequent to laminectomy on 07/03/[address] Juan Hairston. The patient states that treatment for her wounds has included negative pressure therapy, Medihoney, and iodine. The patient was referred to the Wound Center by Dr. Hairston on 02/14/2019. The patient is presently receiving dressing changes of Medihoney for the wounds of her back in the midline with the assistance of Home Health. The patient has no other complaints today. She denies any fever or chills. PAST MEDICAL HISTORY: 1. Anemia. 2. Osteoarthritis. 3. Migraine headaches. 4. Hypertension. 5. Fibromyalgia. 6. Sarcoidosis. 7. History of paroxysmal atrial fibrillation, status post ablation. 8. History of pancreatitis. 9. Hypothyroidism subsequent to surgery for goiter. 10. Gastroesophageal reflux disease. 11. History of TIA. 12. Sjogren's. 13. History of diverticulitis. 14. Coronary artery disease. 15. Congestive heart failure, diastolic. PAST SURGICAL HISTORY: 1. Appendectomy/hysterectomy. 2. Thyroid surgery for goiter. 3. Ovarian surgery for rupture/bladder suspension. 4. Carpal tunnel release. 5. Laparoscopic cholecystectomy. 6. Cataract surgery. 7. Laminectomy x2. 8. Incision and drainage of left olecranon bursa, arm and forearm. 9. Surgery for intraabdominal abscess. 10. Colostomy placement. MEDICATIONS: The patient does not have a list of her medications with her today. ALLERGIES: GABAPENTIN, AMLODIPINE, FENTANYL, AND TAPE. SOCIAL HISTORY: Social history is negative for tobacco or EtOH use. FAMILY HISTORY: Family history significant for diabetes mellitus. The patient's mother was diagnosed with diabetes mellitus. Family history is also significant for coronary artery disease. The patient's mother and brother were diagnosed with coronary artery disease. PHYSICAL EXAMINATION: VITAL SIGNS: Temperature 97.8, pulse 75, respirations 19, and blood pressure 122/58. GENERAL: A 78-year-old female, lying on stretcher in examination room, in no acute distress. HEENT: Normocephalic and atraumatic. NECK: No nuchal rigidity. CHEST: Clear to auscultation. CV: Regular rate and rhythm. ABDOMEN: Soft. EXTREMITIES: No clubbing or cyanosis. BACK: Two nonhealing surgical wounds of the back in the midline are present, which measure approximately 2.2 x 0.9 cm and 1.5 x 1.0 cm. The inferior wound is smaller in length. Granulation tissue is present within the margins of each wound. No purulent drainage is associated with either wound. No erythema of the skin surrounding either wound is present. No maceration of the skin of the periwound of either wound is noted. Nonviable tissue, however, is present within the margins of each wound. ASSESSMENT AND PLAN: 1. Nonhealing surgical wounds of the back in the midline as described above. Dressing changes of Santyl will be initiated today. These dressing changes are to be performed on a daily basis after cleansing and irrigation with the assistance of Home Health. No antibiotics will be prescribed today based upon the appearance of the wounds. I will see Ms. Carrera again 1 week after dressing changes with Santyl have been initiated. Arrangements will be made for the home delivery of Santyl. The patient understands and is in agreement with the preceding treatment plan. 2. Anemia. 3. Osteoarthritis. 4. Migraine headaches. 5. Hypertension. 6. Fibromyalgia. 7. Sarcoidosis. 8. History of paroxysmal atrial fibrillation, status post ablation. 9. History of pancreatitis. 10. Hypothyroidism subsequent to surgery for goiter. 11. Gastroesophageal reflux disease. 12. History of transient ischemic attack. 13. Sjogren syndrome. 14. History of diverticulitis. 15. Coronary artery disease. 16. Congestive heart failure, diastolic. Job ID: [id number]
== END 2019-02-25 12:57 | disposition home or self-care (01) ==
LOC: WCC 12:56
PROVIDERS: ATTEND Family Medicine
DX: T81.89XD Other complications of procedures, not elsewhere classified, subsequent encounter (principal); D64.9 Anemia, unspecified; M19.90 Unspecified osteoarthritis, unspecified site; I11.0 Hypertensive heart disease with heart failure; I50.30 Unspecified diastolic (congestive) heart failure; M79.7 Fibromyalgia; D86.9 Sarcoidosis, unspecified; K21.9 Gastro-esophageal reflux disease without esophagitis; I25.10 Atherosclerotic heart disease of native coronary artery without angina pectoris; M35.00 Sjogren syndrome, unspecified; E89.0 Postprocedural hypothyroidism; G43.909 Migraine, unspecified, not intractable, without status migrainosus; Z87.19 Personal history of other diseases of the digestive system; Z86.73 Personal history of transient ischemic attack (TIA), and cerebral infarction without residual deficits; Z86.79 Personal history of other diseases of the circulatory system
CPT/HCPCS: 97602; 99203; A4218; G0463

== ENCOUNTER 2019-03-06 13:07 | Outpatient (CLI) | payer MEDICARE, BC ==
--- NOTE | 2019-03-06 17:41 | PRG ---
DATE OF SERVICE: 03/06/2019 HISTORY: Ms. Arabella Carrera is a very pleasant 78-year-old, who presents to the wound center for evaluation of 2 nonhealing surgical wounds of the back in the midline subsequent to laminectomy on 07/03/[address] Juan Hairston. The patient previously stated that treatment for her wounds has included negative pressure therapy, Medihoney, and iodine. The patient was referred to the wound center by Dr. Hairston on 02/14/2019. Just prior to being seen in the wound center, the patient had been receiving dressing changes of Medihoney for the wounds of her back in the midline with the assistance of Home Health. After being seen in the Wound Center, dressing changes of Santyl for the patient's nonhealing surgical wounds were initiated. Ms. Carrera has no complaints today. She denies any fever or chills. PHYSICAL EXAMINATION: VITAL SIGNS: Temperature 98.1, pulse 75, respirations 20, and blood pressure 159/71. BACK: Two nonhealing surgical wounds of the back in the midline are present, which measure approximately 1.9 x 0.8 cm and 1.7 x 0.8 cm. Granulation tissue is present within the margins of each wound. No purulent drainage is associated with either wound. No erythema of the skin surrounding either wound is present. No maceration of the skin of the periwound of either wound is noted. Less nonviable tissue is present within the margins of each wound than at the time of the patient's last visit. ASSESSMENT AND PLAN: 1. Nonhealing surgical wounds of the back in the midline as described above. Dressing changes of Santyl will be continued on a daily basis after cleansing and irrigation with the assistance of Home Health. Arrangements were previously made for the home delivery of Santyl. I will see Ms. Carrera again in 1 to 2 weeks. 2. Anemia. 3. Osteoarthritis. 4. Migraine headaches. 5. Hypertension. 6. Fibromyalgia. 7. Sarcoidosis. 8. History of paroxysmal atrial fibrillation status post ablation. 9. History of pancreatitis. 10. Hypothyroidism, subsequent to surgery for goiter. 11. Gastroesophageal reflux disease. 12. History of transient ischemic attack. 13. Sjogren syndrome. 14. History of diverticulitis. 15. Coronary artery disease. 16. Congestive heart failure, diastolic. Job ID: [id number]
[2019-03-06] MEDS ORDERED: Sodium Chloride 0.9% 15 ML NEB ONE (18:00)
== END 2019-03-06 13:08 | disposition home or self-care (01) ==
LOC: WCC 13:07
PROVIDERS: ATTEND Family Medicine
DX: T81.89XD Other complications of procedures, not elsewhere classified, subsequent encounter (principal); I11.0 Hypertensive heart disease with heart failure; I50.32 Chronic diastolic (congestive) heart failure; G43.909 Migraine, unspecified, not intractable, without status migrainosus; K21.9 Gastro-esophageal reflux disease without esophagitis; E89.0 Postprocedural hypothyroidism; D64.9 Anemia, unspecified; M79.7 Fibromyalgia; D86.9 Sarcoidosis, unspecified; M35.00 Sjogren syndrome, unspecified; M19.90 Unspecified osteoarthritis, unspecified site; Z87.19 Personal history of other diseases of the digestive system; Z86.73 Personal history of transient ischemic attack (TIA), and cerebral infarction without residual deficits
CPT/HCPCS: A4218

== ENCOUNTER 2019-03-18 15:39 | Outpatient (CLI) | payer MEDICARE, BC ==
[~2019-03-18 15:39] MED LIST changes: -ISOVUE-370 76%-LOCM 1 ML ONE; -Iopamidol 370 76% 50 ML VIAL FS ONE; +Sodium Chloride 0.9% 15 ML NEB ONE
--- NOTE | 2019-03-18 16:19 | PRG ---
DATE OF SERVICE: 03/18/2019 HISTORY: Ms. Arabella Carrera is a very pleasant 78-year-old, who presents to the Wound Center for evaluation of 2 nonhealing surgical wounds of the back in the midline subsequent to laminectomy on 07/03/[address] Juan Hairston. The patient previously stated that treatment for her wounds has included negative pressure therapy, Medihoney and iodine. The patient was referred to the Wound Center by Dr. Hairston on 02/14/2019. Just prior to being seen in the Wound Center, the patient had been receiving dressing changes of Medihoney for the wounds of her back in the midline with the assistance of Home Health. After being seen in the Wound Center, dressing changes of Santyl for the patient's nonhealing surgical wounds were initiated. The patient has no complaints today. She denies any fever or chills. PHYSICAL EXAMINATION: VITAL SIGNS: Temperature 98.2, pulse 75, respirations 17, blood pressure 137/65. BACK: Two nonhealing surgical wounds of the back in the midline are present, which measure approximately 1.2 x 0.9 cm and 1.7 x 0.3 cm. The dimensions of these wounds at the time of the patient's last visit were approximately 1.9 x 0.8 cm and 1.7 x 0.8 cm. Granulation tissue is present within the margins of each wound. No purulent drainage is associated with either wound. No erythema of the skin surrounding either wound is present. No maceration of the skin of the periwound of either wound is noted. Again, less nonviable tissue is present within the margins of each wound than at the time of the patient's last visit undermining at the 12 o'clock position of approximately 2.7 cm in length is associated with each wound. ASSESSMENT AND PLAN: 1. Nonhealing surgical wounds of the back in the midline as described above. Dressing changes of Santyl will be continued on a daily basis after cleansing and irrigation with the assistance of Home Health. Arrangements were previously made for the home delivery of Santyl. I will see Ms. Carrera again in 2 weeks. 2. Anemia. 3. Osteoarthritis. 4. Migraine headaches. 5. Hypertension. 6. Fibromyalgia. 7. Sarcoidosis. 8. History of paroxysmal atrial fibrillation, status post ablation. 9. History of pancreatitis. 10. Hypothyroidism subsequent to surgery for goiter. 11. Gastroesophageal reflux disease. 12. History of transient ischemic attack. 13. Sjogren syndrome. 14. History of diverticulitis. 15. Coronary artery disease. 16. Congestive heart failure, diastolic. Job ID: [id number]
== END 2019-03-18 15:40 | disposition home or self-care (01) ==
LOC: WCC 15:39
PROVIDERS: ATTEND Family Medicine
DX: T81.89XD Other complications of procedures, not elsewhere classified, subsequent encounter (principal); D64.9 Anemia, unspecified; M19.90 Unspecified osteoarthritis, unspecified site; G43.909 Migraine, unspecified, not intractable, without status migrainosus; I48.0 Paroxysmal atrial fibrillation; E03.9 Hypothyroidism, unspecified; D86.9 Sarcoidosis, unspecified; K21.9 Gastro-esophageal reflux disease without esophagitis; Z86.73 Personal history of transient ischemic attack (TIA), and cerebral infarction without residual deficits; M35.00 Sjogren syndrome, unspecified; I25.10 Atherosclerotic heart disease of native coronary artery without angina pectoris; I11.0 Hypertensive heart disease with heart failure; I50.30 Unspecified diastolic (congestive) heart failure
CPT/HCPCS: 97602; A4218

== ENCOUNTER 2019-04-04 16:06 | Outpatient (CLI) | payer MEDICARE, BC ==
--- NOTE | 2019-04-04 15:22 | PRG ---
DATE OF SERVICE: 04/04/2019 HISTORY: Ms. Arabella Carrera is a very pleasant 78-year-old, who presents to the Wound Center for evaluation of 2 nonhealing surgical wounds of the back in the midline subsequent to laminectomy on 07/03/[address] Juan Hairston. The patient previously stated that treatment for her wounds has included negative pressure therapy, Medihoney, and iodine. The patient was referred to the Wound Center by Dr. Hairston on 02/14/2019. Just prior to being seen in the Wound Center, the patient had been receiving dressing changes of Medihoney for the wounds of her back in the midline with the assistance of Home Health. After being seen in the Wound Center, dressing changes of Santyl for the patient's nonhealing surgical wounds were initiated. The patient has no complaints today. She denies any fever or chills. PHYSICAL EXAMINATION: VITAL SIGNS: Temperature 98.3, pulse 75, respirations 18, and blood pressure 142/66. BACK: Two nonhealing surgical wounds of the back in the midline are present, which measure approximately 1.8 x 1.0 cm and 1.6 x 1.8 cm. Granulation tissue is present within the margins of each wound. No purulent drainage is associated with either wound. No erythema of the skin surrounding either wound is present. No maceration of the skin of the periwound of either wound is noted. Once again, less nonviable tissue is present within the margins of each wound than at the time of the patient's last visit. Undermining at the 10 o'clock position is associated with each wound. The undermining associated with the superior incision is approximately 1.9 cm in length. The undermining associated with the inferior incision is approximately 1.6 cm in length. ASSESSMENT AND PLAN: 1. Nonhealing surgical wounds of the back in the midline as described above. Dressing changes of Santyl will be continued on a daily basis after cleansing and irrigation with the assistance of Home Health. Arrangements were previously made for the home delivery of Santyl. I will see Ms. Carrera again in 2 weeks. 2. Anemia. 3. Osteoarthritis. 4. Migraine headaches. 5. Hypertension. 6. Fibromyalgia. 7. Sarcoidosis. 8. History of paroxysmal atrial fibrillation, status post ablation. 9. History of pancreatitis. 10. Hypothyroidism subsequent to surgery for goiter. 11. Gastroesophageal reflux disease. 12. History of transient ischemic attack. 13. Sjogren syndrome. 14. History of diverticulitis. 15. Coronary artery disease. 16. Congestive heart failure, diastolic. Job ID: [id number]
[2019-04-04] MEDS ORDERED: Sodium Chloride 0.9% 15 ML NEB ONE (17:08)
== END 2019-04-04 16:07 | disposition home or self-care (01) ==
LOC: WCC 16:06
PROVIDERS: ATTEND Family Medicine
DX: T81.89XD Other complications of procedures, not elsewhere classified, subsequent encounter (principal); D64.9 Anemia, unspecified; M19.90 Unspecified osteoarthritis, unspecified site; G43.909 Migraine, unspecified, not intractable, without status migrainosus; M79.7 Fibromyalgia; D86.9 Sarcoidosis, unspecified; E89.0 Postprocedural hypothyroidism; M35.00 Sjogren syndrome, unspecified; K21.9 Gastro-esophageal reflux disease without esophagitis; I11.0 Hypertensive heart disease with heart failure; I50.30 Unspecified diastolic (congestive) heart failure; I25.10 Atherosclerotic heart disease of native coronary artery without angina pectoris; Z86.79 Personal history of other diseases of the circulatory system; Z87.19 Personal history of other diseases of the digestive system; Z86.73 Personal history of transient ischemic attack (TIA), and cerebral infarction without residual deficits; Z98.890 Other specified postprocedural states
CPT/HCPCS: A4218

== ENCOUNTER 2019-04-18 14:30 | Outpatient (CLI) | payer MEDICARE, BC ==
--- NOTE | 2019-04-18 14:29 | PRG ---
DATE OF SERVICE: 04/18/2019 HISTORY: Ms. Arabella Carrera is a very pleasant 78-year-old, who presents to the Wound Center for evaluation of two nonhealing surgical wounds of the back in the midline subsequent to laminectomy on 07/03/[address] Juan Hairston. The patient previously stated that treatment for her wounds has included negative-pressure therapy, Medihoney, and iodine. The patient was referred to the Wound Center by Dr. Hairston on 02/14/2019. Just prior to being seen in the Wound Center, the patient had been receiving dressing changes of Medihoney for the wound of her back in the midline with the assistance of Home Health. After being seen in the Wound Center, dressing changes of Santyl for the patient's nonhealing surgical wounds were initiated. Ms. Carrera has no complaints today. She denies any fever or chills. PHYSICAL EXAMINATION: VITAL SIGNS: Temperature 98.8, pulse 80, respirations 19, and blood pressure 191/77. BACK: Two nonhealing surgical wounds of the back in the midline are present, which measure approximately 0.8 x 0.8 cm and 1.3 x 0.5 cm. Granulation tissue is present within the margins of each wound. No purulent drainage is associated with either wound. No erythema of the skin surrounding either wound is present. No maceration of the skin of the periwound of either wound is noted. Again, less nonviable tissue is present within the margins of each wound than at the time of the patient's last visit. Undermining at the 10 o'clock position is associated with each wound. The undermining associated with the superior incision is approximately 1.5 cm in length. The undermining associated with the inferior incision is approximately 1.7 cm in length. ASSESSMENT AND PLAN: 1. Nonhealing surgical wounds of the back in the midline as described above. Dressing changes of Santyl will be continued on a daily basis after cleansing and irrigation with the assistance of Home Health. Arrangements were previously made for the home delivery of Santyl. I will see Ms. Carrera again in 2 weeks. 2. Anemia. 3. Osteoarthritis. 4. Migraine headaches. 5. Hypertension. 6. Fibromyalgia. 7. Sarcoidosis. 8. History of paroxysmal atrial fibrillation, status post ablation. 9. History of pancreatitis. 10. Hypothyroidism subsequent to surgery for goiter. 11. Gastroesophageal reflux disease. 12. History of transient ischemic attack. 13. Sjogren's syndrome. 14. History of diverticulitis. 15. Coronary artery disease. 16. Congestive heart failure, diastolic. Job ID: [id number]
== END 2019-04-18 14:31 | disposition home or self-care (01) ==
LOC: WCC 14:30
PROVIDERS: ATTEND Family Medicine
DX: T81.89XD Other complications of procedures, not elsewhere classified, subsequent encounter (principal); D64.9 Anemia, unspecified; M19.90 Unspecified osteoarthritis, unspecified site; G43.909 Migraine, unspecified, not intractable, without status migrainosus; D86.9 Sarcoidosis, unspecified; M79.7 Fibromyalgia; I48.0 Paroxysmal atrial fibrillation; E03.9 Hypothyroidism, unspecified; I25.10 Atherosclerotic heart disease of native coronary artery without angina pectoris; I50.30 Unspecified diastolic (congestive) heart failure; I11.0 Hypertensive heart disease with heart failure; M35.00 Sjogren syndrome, unspecified; K21.9 Gastro-esophageal reflux disease without esophagitis; Z86.73 Personal history of transient ischemic attack (TIA), and cerebral infarction without residual deficits

== ENCOUNTER 2019-05-01 11:59 | Outpatient (CLI) | payer MEDICARE, BC ==
[2019-05-01] MEDS ORDERED: Sodium Chloride 0.9% 15 ML NEB ONE (17:03)
--- NOTE | 2019-05-01 17:23 | PRG ---
DATE OF SERVICE: 05/01/2019 HISTORY: Ms. Arabella Carrera is a very pleasant 78-year-old, who presents to the Wound Center for evaluation of 2 nonhealing surgical wounds of the back in the midline subsequent to laminectomy on 07/03/[address] Juan Hairston. The patient previously stated that treatment for her wounds has included negative pressure therapy, Medihoney, and iodine. The patient was referred to the Wound Center by Dr. Hairston on 02/14/2019. Just prior to being seen in the Wound Center, the patient had been receiving dressing changes of Medihoney for the wound of her back in the midline with the assistance of Home Health. After being seen in the Wound Center, dressing changes of Santyl for the patient's nonhealing surgical wounds were initiated. The patient has no complaints today. She denies any fever or chills. PHYSICAL EXAMINATION: VITAL SIGNS: Temperature 98.3, pulse 76, respirations 19, and blood pressure 174/77. BACK: Two nonhealing surgical wounds of the back in the midline are present, which measure approximately 2.0 x 0.8 cm and 1.5 x 0.5 cm. Granulation tissue is present within the margins of each wound. No purulent drainage is associated with either wound. No erythema of the skin surrounding either wound is present. No maceration of the skin of the periwound of either wound is noted. Again, less nonviable tissue is present within the margins of each wound than at the time of the patient's last visit. A tunnel at the 12 o'clock position is associated with the superior wound and is 3 cm in length. A tunnel at the 12 o'clock position is also associated with the inferior wound and is 1.7 cm in length. ASSESSMENT AND PLAN: 1. Nonhealing surgical wounds of the back in the midline as described above. Dressing changes of Santyl will be continued on a daily basis after cleansing and irrigation with the assistance of Home Health. Arrangements were previously made for the home delivery of Santyl. The patient states that she will contact the Wound Center in order to arrange her followup visit at the time recommended to her by Home Health. 2. Anemia. 3. Osteoarthritis. 4. Migraine headaches. 5. Hypertension. 6. Fibromyalgia. 7. Sarcoidosis. 8. History of paroxysmal atrial fibrillation, status post ablation. 9. History of pancreatitis. 10. Hypothyroidism subsequent to surgery for goiter. 11. Gastroesophageal reflux disease. 12. History of transient ischemic attack. 13. Sjogren syndrome. 14. History of diverticulitis. 15. Coronary artery disease. 16. Congestive heart failure, diastolic. Job ID: [id number]
== END 2019-05-01 12:00 | disposition home or self-care (01) ==
LOC: WCC 11:59
PROVIDERS: ATTEND Family Medicine
DX: T81.89XD Other complications of procedures, not elsewhere classified, subsequent encounter (principal); D64.9 Anemia, unspecified; M19.90 Unspecified osteoarthritis, unspecified site; G43.909 Migraine, unspecified, not intractable, without status migrainosus; I11.0 Hypertensive heart disease with heart failure; M79.7 Fibromyalgia; D86.9 Sarcoidosis, unspecified; E89.0 Postprocedural hypothyroidism; K21.9 Gastro-esophageal reflux disease without esophagitis; M35.00 Sjogren syndrome, unspecified; I25.10 Atherosclerotic heart disease of native coronary artery without angina pectoris; I50.30 Unspecified diastolic (congestive) heart failure
CPT/HCPCS: A4218

== ENCOUNTER 2019-05-21 07:19 | Outpatient (CLI) | payer MEDICARE, BC ==
--- NOTE | 2019-05-21 08:42 | CT ---
CT Thoracic Spine WO Con History: Thoracic spine pain Comparison: Reference is made to a CT abdomen pelvis January 03, 2019 Findings: There is an occluding device within the left atrial appendage. Lung bases are clear. No per icardial effusion. Extensive calcifications of the aorta without aneurysmal dilatation. There is a compression fracture of T5 with approximately 20% height loss of the anterior inferior gisele tebral body. Chronic compression deformity inferior endplate of T6. At T7-T8 there is complete degenerative disc space height loss with a central posterior disc osteophyte complex narrowing the sp inal canal to approximately 6 mm. Superior endplate Schmorl's node at T8. Laminectomy changes at T10-T11 with large central and left paracentral disc osteophyte complex causin g high-grade narrowing the spinal canal to approximately 5 mm. There is also hypertrophic facet changes on the right causing high-grade right neural foraminal narrowing. Compression deformity of T11 contains cement as well as compression deformity of T12. L1 compression deformity does not contain cement. High-grade erosive change of the left T10/T11 facet joint. Impression: 1. Laminectomy changes at T10 and T11 without significant postoperative fluid collection. 2. Large posterior disc osteophyte complex at T10-T11 causing spinal canal narrowing. MRI may be bene ficial to evaluate for cord impingement. 3. Numerous chronic appearing compression deformities through the demineralized thoracic spine. 4. Erosive change of the left T10-T11 facet joint likely due to increased motion at this level due to laminectomy change.
== END 2019-05-21 07:20 | disposition home or self-care (01) ==
LOC: CT 07:19
PROVIDERS: ATTEND Nurse Practitioner Family
DX: M54.6 Pain in thoracic spine (principal); M43.8X4 Other specified deforming dorsopathies, thoracic region; M25.78 Osteophyte, vertebrae; M48.04 Spinal stenosis, thoracic region; Z98.890 Other specified postprocedural states
CPT/HCPCS: 72128